=== PATIENT | female | born 1965 | race Caucasian/White ===

== ENCOUNTER 2020-05-02 08:33 | Emergency (ER) | payer OTHER, SELFPAY ==
[2020-05-02 08:35] VITALS: BP 178/82; PULSE 92; RESP 18; TEMP 36.4; O2SAT 98
[2020-05-02 09:10] VITALS: BP 181/96; PULSE 87; RESP 20; O2SAT 95
[2020-05-02] MEDS: diphenhydrAMINE HCl INJ 50 MG/ML VIAL 25 MG IV PUSH (09:38)
[2020-05-02] MEDS: PROCHLORPERAZINE EDISYLATE 10 MG/2 ML VIAL 5 MG IV PUSH (09:38)
[2020-05-02] MEDS: fentaNYL CITRATE INJ (*CRX) 100 MCG/2 ML VIAL 25 MCG IV PUSH (09:38)
[2020-05-02 10:00] VITALS: BP 179/95; PULSE 82; RESP 20; O2SAT 95
--- NOTE | 2020-05-02 10:11 | ED.HA ---
HPI - Headache General Chief Complaint: Headache Stated Complaint: Headache Time Seen by Provider: 05/02/20 08:51 Source: patient and family Mode of arrival: ambulatory Limitations: no limitations History of Present Illness HPI Narrative: 55-year-old with a history of hypertension, here with complaints of having headache on and off for past few weeks. Patient states that she had an outpatient MRI done at [facility] which showed thickening of blood vessels but no evidence of any strokes or masses. She states that her headache is mostly in the frontal area was unable to sleep all night. She denies any blurred vision, nausea or vomiting. MD elicited complaint: headache Onset (ago): week(s) (4) Onset description: gradually Quality & Timing: aching and constant Exacerbating factors: none Relieving factors: nothing Associated symptoms: none Related Data Home Medications Medication Instructions Recorded Confirmed alprazolam 1 mg PO DAILY 05/02/20 candesartan 16 mg PO DAILY 05/02/20 dicyclomine 20 mg PO TID 05/02/20 hydrochlorothiazide 25 mg PO DAILY 05/02/20 lisinopril 20 mg PO DAILY 05/02/20 lumateperone [Caplyta] 42 mg PO DAILY 05/02/20 sennosides-docusate sodium 8.6 - 50 tab-cap PO HS 05/02/20 [Senexon-S] Allergies Allergy/AdvReac Type Severity Reaction Status Date / Time aspirin Allergy Unknown Anaphylactic Verified 05/02/20 08:38 Shock iodine Allergy Unknown IVPDYE Verified 11/04/08 15:48 Review of Systems Review of Systems: All systems reviewed & are unremarkable except as noted in HPI and below Constitutional: Constitutional: Reports no additional constitutional complaints Eyes: Eyes: Reports no additional eye complaints ENT: Reports system reviewed and no additional complaints, except as documented Cardiovascular: Cardiovascular: Reports as per HPI Respiratory: Respiratory: Reports as per HPI Gastrointestinal: Gastrointestinal: Reports no additional gastrointestinal complaints Integumentary/Breasts: Skin/Breast: Reports system reviewed and no additional complaints, except as docu Neurologic: Reports as per HPI Psychiatric: Psychiatric: Reports no additional psychiatric complaints Exam Narrative: Exam Narrative: GENERAL: Well-appearing, well-nourished, and in no acute distress. HEAD: Normocephalic, atraumatic. EYES: PERRLA and EOMI. ENT: Nares clear, no rhinorrhea or epistaxis. Mucous membranes moist. NECK: Supple. CHEST: Clear to auscultation. No respiratory distress. HEART: Regular rate and rhythm. No murmur heard. Normal peripheral pulses.. EXTREMITIES: Normal range of motion. No edema. SKIN: Warm, dry, no rash. NEURO: No focal deficits. Alert and oriented x3. PSYCH: Normal mood and affect. Course Course Emergency Course: Patient states that she is feeling much better after IV Benadryl and Compazine advised her to continue her home medication, follow-up with her primary doctor or neurologist. Vital Signs Vital signs: Vital Signs Temperature 36.4 C 05/02/20 08:35 Pulse Rate 92 05/02/20 08:35 Respiratory Rate 18 05/02/20 08:35 Blood Pressure 178/82 H 05/02/20 08:35 Pulse Oximetry 98 05/02/20 08:35 Temperature 36.4 C 05/02/20 08:35 Pulse Rate 82 05/02/20 10:00 Respiratory Rate 20 05/02/20 10:00 Blood Pressure 179/95 H 05/02/20 10:00 Pulse Oximetry 95 05/02/20 10:00 Discharge Plan Discharge Clinical Impression: Headache Patient Disposition: Home, Self-Care Condition: Stable Instructions: Antibiotic Form Prescriptions: No Action alprazolam 1 mg Tablet 1 mg PO DAILY RF: 0 lisinopril 20 mg tablet 20 mg PO DAILY RF: 0 sennosides-docusate sodium [Senexon-S] 8.6-50 mg tablet 8.6 - 50 tab-cap PO HS RF: 0 dicyclomine 20 mg tablet 20 mg PO TID RF: 0 candesartan 16 mg tablet 16 mg PO DAILY RF: 0 hydrochlorothiazide 25 mg tablet 25 mg PO DAILY RF: 0 Caplyta 42 mg Capsule 42 mg PO
[2020-05-02 10:29] VITALS: BP 179/95; PULSE 80; RESP 20; O2SAT 95
== END 2020-05-02 10:30 | disposition home or self-care (01) ==
PROVIDERS: Emergency Provider Family Medicine; PCP Internal Medicine
DX: R51.9 Headache, unspecified (principal); I10 Essential (primary) hypertension
CPT/HCPCS: 96374; 96375; 99284; J0780; J1200; J3010

== ENCOUNTER 2020-10-28 12:30 | Outpatient (CLI) | payer OTHER, SELFPAY ==
--- NOTE | ~2020-10-28 | US_ITS ---
EXAMINATION: US carotid duplex BI DATE: 10/28/2020 13:08 INDICATION: Stroke TECHNIQUE: Grayscale, color Doppler, and pulsed Doppler images of the cervical carotid arteries were obtained. The degree of vessel stenosis is placed in one of the following categories: normal, <50%, 5 0-69%, >=70% but less than near-occlusion, near-occlusion, or total occlusion. Note that percent sten osis relative to normal distal artery lumen diameter is indirectly measured from velocity measurement s as described by Gurinder, et al. Radiology 2003; 229:[id number]. COMPARISON: None. FINDINGS: RIGHT: The right common carotid artery (CCA) peak systolic velocity (PSV) is 79 cm/s. The right internal car otid artery (ICA) PSV is 70 cm/s. The right ICA end-diastolic velocity (EDV) is 20 cm/s. The right IC A/CCA PSV ratio is 0.9. Grayscale and color Doppler images yield an estimate of <50% diameter reducti on from plaque in the ICA. The external carotid artery (ECA) PSV is 126 cm/s. There is antegrade flow in the right vertebral artery. LEFT: The left CCA PSV is 83 cm/s. The left ICA PSV is 94 cm/s. The left ICA EDV is 32 cm/s. The left ICA/C CA PSV ratio is 1.1. Grayscale and color Doppler images yield an estimate of <50% diameter reduction from plaque in the ICA. The ECA PSV is 79 cm/s. There is antegrade flow in the left vertebral artery. IMPRESSION: 1. <50% stenosis from negligible plaque in the right internal carotid artery. 2. <50% stenosis from negligible plaque in the left internal carotid artery. Reviewed, dictated and finalized at location B.
== END 2020-10-28 12:31 | disposition home or self-care (01) ==
PROVIDERS: PCP Internal Medicine; Visit Provider Internal Medicine
DX: I65.23 Occlusion and stenosis of bilateral carotid arteries (principal)
CPT/HCPCS: 93880

== ENCOUNTER 2022-01-27 12:23 | Outpatient (CLI) | payer OTHER, SELFPAY ==
--- NOTE | ~2022-01-27 | XR_ITS ---
EXAMINATION: XR barium swallow DATE: 01/27/2022 12:56 INDICATION: Throat pain. TECHNIQUE: The patient drank thick barium, gas-producing crystals, and thin barium. Fluoroscopic spot radiographs of the hypopharynx and esophagus were obtained. Fluoroscopy exposure time was 2.3 minut es. A total of 1603 fluoroscopic images were obtained. COMPARISON: None. FINDINGS: The pharynx is symmetric and without evidence of mass lesion or mucosal irregularity. There is laryngeal penetration upon review of images. Procedure there is also trace aspiration which was s ilent without eliciting a cough reflex. Postoperative changes of C3-C4 anterior spinal fusion with fu ekaterina device along the right anterior margin of the disc space with a couple surgical clips to the rig ht of the larynx. The esophagus is normal without mass or stricture. Esophageal motility is within no rmal limits for age. There is no hiatal hernia. There was no gastroesophageal reflux with provocative maneuvers. Heterogeneous pattern of contrast within the stomach likely related to residual fluid and debris within the stomach. IMPRESSION: 1. Laryngeal penetration with trace silent aspiration. Consider modified swallow study performed with the department of speech pathology for further evaluation. 2. Otherwise unremarkable esophagram. Reviewed, dictated and finalized at location A. IMPRESSION: 1. Laryngeal penetration with trace silent aspiration. Consider modified swallo w study performed with the department of speech pathology for further evaluatio n. 2. Otherwise unremarkable esophagram.
== END 2022-01-27 12:24 | disposition home or self-care (01) ==
PROVIDERS: PCP Internal Medicine; Visit Provider Otolaryngology
DX: R07.0 Pain in throat (principal)
CPT/HCPCS: 74220

== ENCOUNTER 2022-02-10 14:42 | Outpatient (CLI) | payer OTHER, SELFPAY ==
--- NOTE | ~2022-02-10 | CT_ITS ---
EXAMINATION:CT lung screening DATE: 02/10/2022 15:13 INDICATION: Personal history of nicotine dependence. Current smoker with 41 pack year history. TECHNIQUE: Computed tomography (CT) of the chest was performed without intravenous contrast. Automate d exposure control and iterative reconstruction technique were employed. The dose-length product (DLP ) was 71.85 mGy-cm. COMPARISON: Chest CT 04/26/2018 FINDINGS: Calcified right lung nodules and calcified right hilar lymph nodes are consistent with old granulomas disc disease. There is a broncholith in anterobasal segment right lower lobe. There are tr ee-in-bud opacities and bronchiectasis in anterobasal segment right lower lobe. No pleural effusion. The heart size is normal. No pericardial effusion. Calcifications in the spleen are consistent with o ld granulomatous disease. There is moderate thoracic spondylosis. IMPRESSION: 1. Lung-RADS category 2S: Benign appearance or behavior. Continue annual screening with noncontrast l ow-dose chest CT in 12 months. 2. Broncholith in anterobasal segment right lower lobe with chronic postobstructive pneumonia. Reviewed, dictated and finalized at location A. IMPRESSION: 1. Lung-RADS category 2S: Benign appearance or behavior. Continue annual screen ing with noncontrast low-dose chest CT in 12 months. 2. Broncholith in anterobasal segment right lower lobe with chronic postobstruc tive pneumonia.
== END 2022-02-10 14:43 | disposition home or self-care (01) ==
PROVIDERS: PCP Internal Medicine; Visit Provider Internal Medicine
DX: Z12.2 Encounter for screening for malignant neoplasm of respiratory organs (principal); Z87.891 Personal history of nicotine dependence
CPT/HCPCS: 71271

== ENCOUNTER 2022-05-29 01:10 | Day surgery (SDC) | payer OTHER, SELFPAY ==
[2022-05-10 14:41] VITALS: BMI 30.2
--- NOTE | 2022-05-22 09:02 | PC.NURSE ---
Spoke with patient on 05/19/22, states she is running fever of 101.8 past 2 days, she finished 2nd round of antibiotics on 05/15/2022 and was seen in office by Dr. Lee on 05/17/2022 did not want to start another round of antibiotics at this time. Pt states she is congested and coughing up phlegm. Encouraged pt to call Dr. Lee or go to ER to be seen to r/o PN prior to coming for EGD. Talked with pt this am 05/22/2022 stated her home health care case manager called Dr. Coleman office and he ordered a chest x-ray. She said she could not get this done over the weekend so home health care case manager is taking her today. She states she does feel better and has not been running a fever yesterday or today. I will call Dr. Coleman office to ask them to follow up on chest xray today as her procedure is sched. tomorrow.
[2022-05-29 07:54] VITALS: BP 177/96; PULSE 87; RESP 16; TEMP 36.4; O2SAT 98; BMI 30.4
[2022-05-29] MEDS: LACTATED RINGERS 1,000 ML 150 ML IV CONT (08:24)
--- NOTE | 2022-05-29 08:31 | PM.HPGS ---
History of Present Illness History of Present Illness Consent: Risks, benefits, and alternatives have been discussed and questions answered. Patient agrees to proceed with procedure. Chief complaint: epigastric pain Narrative: Melinda Persaud is a 57 year old female with lprd and epigastric pain, prilose did not work Review of Systems Constitutional: Constitutional: Denies headache(s) and Denies weakness Eyes: Eyes: Denies blurry vision ENT: Reports Normal hearing present, Denies headache(s) and Denies neck pain Cardiovascular: Cardiovascular: Denies chest pain and Denies dyspnea Respiratory: Respiratory: Denies dyspnea Gastrointestinal: Gastrointestinal: Reports no additional gastrointestinal complaints Genitourinary: Genitourinary: Denies dysuria Musculoskeletal: Musculoskeletal: Denies neck pain Integumentary/Breasts: Skin/Breast: Denies dry skin Neurologic: Reports Normal hearing present, Denies headache(s) and Denies weakness Psychiatric: Psychiatric: Denies anxiety Endocrine: Endocrine: Denies change in body appearance Hematologic/Lymphatic: Hematologic/Lymphatic: Denies easy bleeding Allergic/Immunologic: Allergic/Immunologic: Denies urticaria PMFSH Past Medical History Medical History (Updated 04/13/22 @ 13:51 by Cesar Williamson MD) Allergies Colon cancer screening Epigastric pain History of COPD Hx of chronic arthritis Hypertension Kidney disease Migraine Seizures Tobacco abuse Family History Family History Father Carcinoma of colon Lung cancer Mother Heart disease Hypertension Depression Sibling Heart disease Hypertension Social History Social History Smoking packs per day: 0.5 Smoking cigarettes per day: 10.0 Years smoked: 40 Smoking pack-years: 20.00 Smoking status: Current every day smoker Tobacco type: cigarettes Second hand tobacco smoke exposure: Yes Alcohol intake: never Substance use: current Substance use type: does not use Living arrangements: alone Spiritual care concerns: No Meds Home Medications and Allergies Home Medications Medication Instructions Recorded Confirmed Type hydrochlorothiazide 12.5 mg tablet 12.5 mg PO DAILY 01/05/22 05/29/22 History ketorolac 10 mg tablet 10 mg PO Q6H PRN Pain 01/05/22 05/29/22 History methocarbamol 500 mg tablet 500 mg PO BID 01/05/22 05/29/22 History pregabalin 150 mg capsule (Lyrica) 150 mg PO BID 01/05/22 05/29/22 History acetaminophen 500 mg capsule 1,000 mg PO Q6H PRN Pain 04/13/22 05/29/22 History albuterol sulfate 90 mcg/actuation 1 - 2 inh inhalation Q4H PRN 04/13/22 05/29/22 History aerosol inhaler (Ventolin HFA) Shortness Of Breath dicyclomine 20 mg tablet 20 mg PO TID 04/13/22 05/29/22 History diphenhydramine HCl 25 mg tablet 25 mg PO TID 04/13/22 05/29/22 History (Allergy (diphenhydramine)) montelukast 10 mg tablet 10 mg PO DAILY 04/13/22 05/29/22 History rosuvastatin 5 mg tablet 5 mg PO DAILY 04/13/22 05/29/22 History quetiapine 100 mg tablet 100 mg PO HS 05/10/22 05/29/22 History quetiapine 25 mg tablet 25 mg PO QAM 05/10/22 05/29/22 History quetiapine 50 mg tablet 50 mg PO HS 05/10/22 05/29/22 History topiramate 25 mg tablet 50 mg PO HS 05/10/22 05/29/22 History Allergies Allergy/AdvReac Type Severity Reaction Status Date / Time meloxicam Allergy Severe Anaphylactic Verified 05/29/22 07:52 Shock shellfish derived Allergy Severe Anaphylactic Verified 05/29/22 07:52 Shock venlafaxine [From Effexor] Allergy Mild Rash Verified 05/29/22 07:52 aspirin Allergy Unknown Anaphylactic Verified 05/29/22 07:52 Shock iodine Allergy Unknown IVPDYE Verified 05/29/22 07:52 Vital Signs Vital Signs - 24 hr 05/29/22 07:54 Temperature 97.6 F Pulse Rate 87 Respiratory Rate 16 Blood Pressure 177/96 H Pulse Oximetry 98 Oxygen Deliv
--- NOTE | 2022-05-29 08:35 | WPDANESEPP ---
Anes - Eval Pre Procedure Procedure: Operation Date: 05/29/22 09:00 Proposed Procedures p Esophagogastroduodenoscopy EGD - Cesra Williamson MD Date/Time: 05/29/22 08:35 Surgeon: Sky Preop Diagnosis: Epigastric Pain Pre Op Diagnosis: epigastric pain Patient Data Age: 57 Gender: F Height: 1.63 m Weight: 80.4 kg Last Vital Signs Temp 36.4 C 05/29/22 07:54 Pulse 87 05/29/22 07:54 Resp 16 05/29/22 07:54 BP 177/96 H 05/29/22 07:54 Pulse Ox 98 05/29/22 07:54 O2 Del Method Room Air 05/29/22 07:54 Allergies Allergy/AdvReac Type Severity Reaction Status Date / Time meloxicam Allergy Severe Anaphylactic Verified 05/29/22 07:52 Shock shellfish derived Allergy Severe Anaphylactic Verified 05/29/22 07:52 Shock venlafaxine [From Effexor] Allergy Mild Rash Verified 05/29/22 07:52 aspirin Allergy Unknown Anaphylactic Verified 05/29/22 07:52 Shock iodine Allergy Unknown IVPDYE Verified 05/29/22 07:52 Home Medications Medication Instructions Recorded Confirmed Type hydrochlorothiazide 12.5 mg tablet 12.5 mg PO DAILY 01/05/22 05/29/22 History ketorolac 10 mg tablet 10 mg PO Q6H PRN Pain 01/05/22 05/29/22 History methocarbamol 500 mg tablet 500 mg PO BID 01/05/22 05/29/22 History pregabalin 150 mg capsule (Lyrica) 150 mg PO BID 01/05/22 05/29/22 History acetaminophen 500 mg capsule 1,000 mg PO Q6H PRN Pain 04/13/22 05/29/22 History albuterol sulfate 90 mcg/actuation 1 - 2 inh inhalation Q4H PRN 04/13/22 05/29/22 History aerosol inhaler (Ventolin HFA) Shortness Of Breath dicyclomine 20 mg tablet 20 mg PO TID 04/13/22 05/29/22 History diphenhydramine HCl 25 mg tablet 25 mg PO TID 04/13/22 05/29/22 History (Allergy (diphenhydramine)) montelukast 10 mg tablet 10 mg PO DAILY 04/13/22 05/29/22 History rosuvastatin 5 mg tablet 5 mg PO DAILY 04/13/22 05/29/22 History quetiapine 100 mg tablet 100 mg PO HS 05/10/22 05/29/22 History quetiapine 25 mg tablet 25 mg PO QAM 05/10/22 05/29/22 History quetiapine 50 mg tablet 50 mg PO HS 05/10/22 05/29/22 History topiramate 25 mg tablet 50 mg PO HS 05/10/22 05/29/22 History : patient denies Patient hx anesthesia problems: none Family hx anesthesia problems: none Results Review: All pre-operative results and documents have been reviewed as part of the pre-operative evaluation. [facility] Past Medical History Medical History Allergies Colon cancer screening Epigastric pain History of COPD Hx of chronic arthritis Hypertension Kidney disease Migraine Seizures Tobacco abuse Family History Family History Father Carcinoma of colon Lung cancer Mother Heart disease Hypertension Depression Sibling Heart disease Hypertension Social History Social History (Updated 05/29/22 @ 08:36 by Dayna Cohen CRNA) Smoking packs per day: 0.5 Smoking cigarettes per day: 10.0 Years smoked: 40 Smoking pack-years: 20.00 Smoking status: Current every day smoker Tobacco type: cigarettes Second hand tobacco smoke exposure: Yes Alcohol intake: never Substance use type: does not use Living arrangements: alone Spiritual care concerns: No Exam Day of Procedure 05/29/22 08:35 Patient weight: obese Heart: regular rate and rhythm Lungs: clear to auscultation Airway: Mallampati scale class II Neurological: alert and oriented
[2022-05-29 08:49] VITALS: BP 153/100; PULSE 87; RESP 19; TEMP 36.4; O2SAT 98
[2022-05-29 08:59] VITALS: BP 164/104; PULSE 87; RESP 21; TEMP 36.4; O2SAT 100
[2022-05-29 09:07] VITALS: BP 170/104; PULSE 94; RESP 16; TEMP 36.4; O2SAT 100
== END 2022-05-29 09:13 | disposition home or self-care (01) ==
PROVIDERS: PCP Internal Medicine; Visit Provider Internal Medicine Gastroenterology
PROC: 0DJ08ZZ Inspection of Upper Intestinal Tract, Via Natural or Artificial Opening Endoscopic (ICD-10-PCS; CPT 43235; principal; 2022-05-29 09:00)
DX: K21.00 Gastro-esophageal reflux disease with esophagitis, without bleeding (principal); K29.70 Gastritis, unspecified, without bleeding; I10 Essential (primary) hypertension; J44.9 Chronic obstructive pulmonary disease, unspecified; G40.909 Epilepsy, unspecified, not intractable, without status epilepticus; Z79.51 Long term (current) use of inhaled steroids; F17.210 Nicotine dependence, cigarettes, uncomplicated; E66.9 Obesity, unspecified; Z68.30 Body mass index [BMI] 30.0-30.9, adult
CPT/HCPCS: 43239; 87081; 88305; J2704; J7120

== ENCOUNTER 2022-06-30 08:42 | Outpatient (CLI) | payer OTHER, SELFPAY ==
--- NOTE | 2022-06-30 | ECHO_ITS ---
Patient Info Name: Melinda Persaud Age: 57 years : 1965 Gender: Female Ht: 64 in Wt: 180 lbs BSA: 1.95 m2 HR: 95 bpm BP: 120 / 106 mmHg Technical Quality: Good Exam Date: 06/30/2022 9:13 AM Exam Location: [facility] Patient Status: Outpatient Admit Date: 06/30/2022 Staff Ordering Physician: Mj Lee MD Hydrostatic Tubing Tester: Supa Martin, BEATRIZ, RT Attending Provider: Mj Lee MD Referring Physician: Rosa LYONS; Exam Type: CA echo doppler color flow Study Info Indications R60.0 - Localized edema R06.02 - Shortness of breath Complete two-dimensional, color flow and Doppler transthoracic echocardiogram is performed. Strain analysis performed. Summary 1. Complete two-dimensional, color flow and Doppler transthoracic echocardiogram is performed. 2. Left ventricular chamber dimension is normal. 3. Left ventricular systolic function is normal, estimated at 60-65%. 4. There is mildly increased left ventricular wall thickness. 5. The left ventricular diastolic function is grade I diastolic dysfunction. 6. E/e' 7 is not elevated. 7. Global longitudinal strain is abnormal at -10.9%. 8. There is mild aortic valve sclerosis. 9. There is trace pulmonic regurgitation. Left Ventricle E/e' 7 is not elevated. Global longitudinal strain is abnormal at -10.9%. Left ventricular chamber dimension is normal. Left ventricular systolic function is normal, estimated at 60-65%. There is mildly increased left ventricular wall thickness. The left ventricular diastolic function is grade I diastolic dysfunction. Right Ventricle Right ventricular systolic function is normal and with normal TAPSE 1.7 cm. Right ventricular chamber dimension is normal. Left Atria Left atrial chamber dimension is normal. Right Atria Right atrial chamber dimension is normal. Aortic Valve The aortic valve is trileaflet. There is mild aortic valve sclerosis. There is no aortic valve stenosis. There is no aortic valve regurgitation. Pulmonic Valve There is trace pulmonic regurgitation. Mitral Valve There is no mitral valve stenosis. There is no mitral valve regurgitation. Tricuspid Valve There is no tricuspid valve regurgitation. Pericardium/Pleural There is no pericardial effusion. Inferior Vena Cava Normal inferior vena cava with >50% collapse upon inspiration consistent with normal right atrial pressure, 5 mmHg. Aorta The aortic root size at the sinus of Valsalva is normal. Left Ventricular Outflow Tract Name Value Normal LVOT 2D LVOT Diameter 2.0 cm LVOT Doppler LVOT Peak Gradient 3 mmHg LVOT Mean Gradient 2 mmHg LVOT VTI 13 cm LVOT VTI/AV VTI Ratio 0.6 LVOT Stroke Volume 39 ml LVOT CO 4.0 l/min LVOT CI 2.0 l/min/m2 Mitral Valve Name Value Normal ----
== END 2022-06-30 08:43 | disposition home or self-care (01) ==
LOC: ANHCARD 08:42
PROVIDERS: PCP Internal Medicine; Visit Provider Internal Medicine
DX: R06.09 Other forms of dyspnea (principal)
CPT/HCPCS: 93306

== ENCOUNTER 2022-07-05 12:40 | Outpatient (CLI) | payer OTHER, SELFPAY ==
--- NOTE | 2022-07-05 16:28 | WPDPFTINT ---
PFT Procedure Performed PFT Procedure Performed Spirometry with Pre/Post Bronchodilator Plethysmography (Lung Vol) Diffusing Cap (DLCO) Flow Vol Loop PFT Interpretation This is a pulmonary function test with pre and post-bronchodilator spirometry, plethysmography and diffusing capacity. The test was performed and results interpreted in accordance with the 2019 and 2005 ATS/ERS Task Force guidelines respectively using the Global Lung Function Initiative-2012 reference equations. Patient demonstrated good effort and cooperation. Reproducibility criteria were met. The quality of the pre bronchodilator spirometry maneuver was Grade A and post bronchodilator spirometry maneuver was Grade A. Findings: Spirometry: The contour the inspiratory and expiratory flow tracing are normal. The pre bronchodilator FVC is 2.20 L, 68% predicted. The pre bronchodilator FEV1 is 1.90 L, 75% predicted. The pre bronchodilator FEV1: FVC ratio is 86%. Post bronchodilator FVC is 2.22 L, representing 1% increase. The post bronchodilator FEV1 is 1.97 L, representing a 4% increase. The post bronchodilator FEV1: FVC ratio was 88%. Plethysmography: Total lung capacity is 3.59 L, 71% predicted. The functional residual capacity is 1.65 L, 57% predicted. The residual volume is 1.40 L, 71% predicted. Diffusing capacity: The diffusing capacity unadjusted for hemoglobin and carboxyhemoglobin is 15.8, 73% predicted. The diffusing capacity adjusted for alveolar volume is 5.26, 118% predicted. Impression: There is a mild restrictive ventilatory a normal FEV1. The spirometry is normal without evidence of an obstructive abnormality. There is no significant improvement after inhaling a single dose of albuterol. The diffusing capacity is normal. There are no prior studies for comparison
== END 2022-07-05 12:41 | disposition home or self-care (01) ==
LOC: ANHPFT 12:42
PROVIDERS: PCP Internal Medicine; Visit Provider Internal Medicine Pulmonary Disease
DX: J44.9 Chronic obstructive pulmonary disease, unspecified (principal); R94.2 Abnormal results of pulmonary function studies
CPT/HCPCS: 94060; 94726; 94729

== ENCOUNTER 2022-09-11 09:23 | Emergency (ER) | payer OTHER, SELFPAY ==
[2022-09-11 09:30] VITALS: BP 138/87; PULSE 92; RESP 16; TEMP 36.5; O2SAT 99
== END 2022-09-11 10:37 | disposition left against medical advice (07) ==
PROVIDERS: PCP Internal Medicine
DX: M54.2 Cervicalgia (principal)
CPT/HCPCS: 99199

== ENCOUNTER 2022-11-02 09:22 | Outpatient (CLI) | payer OTHER, SELFPAY ==
--- NOTE | ~2022-11-02 | US_ITS ---
US abdomen complete EXAMINATION: US Abdomen Complete INDICATION: Left upper quadrant pain PROCEDURE: Realtime High Resolution abdomen ultrasound. COMPARISON: No prior studies for comparison FINDINGS: Gallbladder is surgically absent. Common bile duct measures 2.3 mm. Liver echotexture is increased, consistent with fatty infiltration.. There is an echogenic focus of t he liver, likely calcification. Pancreas within normal limits. Pancreatic tail is obscured by bowel gas. There are calcified granulomas of the spleen. Spleen is normal in size.. Renal echotexture is wi thin normal limits bilaterally without hydronephrosis, contour deforming mass or renal stone. Right k idney measures 10.2 cm. Left kidney measures 9.8 cm. Visualized aspects of the aorta and IVC are within normal limits. Portal vein is patent. IMPRESSION: 1: Hepatic steatosis. Reviewed, dictated and finalized at location L. IMPRESSION: 1: Hepatic steatosis.
== END 2022-11-02 09:23 | disposition home or self-care (01) ==
LOC: ANHIMG 09:25
PROVIDERS: PCP Internal Medicine; Visit Provider Internal Medicine Gastroenterology
DX: K76.0 Fatty (change of) liver, not elsewhere classified (principal)
CPT/HCPCS: 76700

== ENCOUNTER 2023-01-02 01:27 | Day surgery (SDC) | payer OTHER, SELFPAY ==
[2022-12-26 13:26] VITALS: BMI 30.6
[2023-01-02 08:00] VITALS: BP 128/70; PULSE 81; RESP 16; TEMP 36.2; O2SAT 99; BMI 29.2
--- NOTE | 2023-01-02 08:09 | WPDANESEPPF ---
Anes - Initial Pre Proc Eval Procedure: Operation Date: 01/02/23 09:15 Proposed Procedures p Esophagogastroduodenoscopy - Cesar Williamson MD Date/Time: 01/02/23 08:09 Surgeon: Cesar Williamson MD Pre Op Diagnosis: gastric ulcer Patient Data Age: 57 Gender: F Height: 1.63 m Weight: 77.4 kg Last Vital Signs Temp 36.2 C L 01/02/23 08:00 Pulse 81 01/02/23 08:00 Resp 16 01/02/23 08:00 BP 128/70 01/02/23 08:00 Pulse Ox 99 01/02/23 08:00 O2 Del Method Room Air 01/02/23 08:00 Allergies Allergy/AdvReac Type Severity Reaction Status Date / Time meloxicam Allergy Severe Anaphylactic Verified 01/02/23 07:59 Shock shellfish derived Allergy Severe Anaphylactic Verified 01/02/23 07:59 Shock venlafaxine [From Effexor] Allergy Mild Rash Verified 01/02/23 07:59 aspirin Allergy Unknown Anaphylactic Verified 01/02/23 07:59 Shock iodine Allergy Unknown IVPDYE Verified 01/02/23 07:59 NSAIDS (Non-Steroidal Allergy Rash Verified 01/02/23 07:59 Anti-Inflamma Home Medications Medication Instructions Recorded Confirmed Type hydrochlorothiazide 12.5 mg tablet 12.5 mg PO DAILY 01/05/22 01/02/23 History methocarbamol 500 mg tablet 750 mg PO TID 01/05/22 01/02/23 History pregabalin 150 mg capsule (Lyrica) 150 mg PO BID 01/05/22 01/02/23 History albuterol sulfate 90 mcg/actuation 1 - 2 inh inhalation Q4H PRN 04/13/22 01/02/23 History aerosol inhaler (Ventolin HFA) Shortness Of Breath dicyclomine 20 mg tablet 20 mg PO TID 04/13/22 01/02/23 History diphenhydramine HCl 25 mg tablet 25 mg PO QID 04/13/22 01/02/23 History (Allergy (diphenhydramine)) montelukast 10 mg tablet 10 mg PO DAILY 04/13/22 01/02/23 History candesartan 16 mg tablet 32 mg PO DAILY 10/19/22 01/02/23 History doxepin 10 mg capsule 25 mg PO DAILY 10/19/22 01/02/23 History ketorolac 10 mg tablet 10 mg PO Q6H PRN Pain 10/19/22 01/02/23 History atorvastatin 40 mg tablet 40 mg PO DAILY 12/26/22 01/02/23 History melatonin 5 mg/15 mL oral liquid 20 mg PO HS 12/26/22 01/02/23 History quetiapine 200 mg tablet 200 mg PO HS 12/26/22 01/02/23 History topiramate 50 mg tablet 50 mg PO DAILY 12/26/22 01/02/23 History Patient hx anesthesia problems: none Family hx anesthesia problems: none Results Review: All pre-operative results and documents have been reviewed as part of the pre-operative evaluation. [facility] Past Medical History Medical History (Updated 10/19/22 @ 11:30 by Cesar Williamson MD) Acute LUQ pain Allergies Colon cancer screening Epigastric pain Erosive gastritis History of COPD Hx of chronic arthritis Hypertension Kidney disease Migraine Seizures Tobacco abuse Family History Family History Father Carcinoma of colon Lung cancer Mother Heart disease Hypertension Depression Sibling Heart disease Hypertension Social History Social History Smoking packs per day: 0.5 Smoking cigarettes per day: 10.0 Years smoked: 40 Smoking pack-years: 20.00 Smoking status: Current every day smoker Tobacco type: cigarettes Second hand tobacco smoke exposure: Yes Alcohol intake: never Substance use type: does not use Living arrangements: alone Spiritual care concerns: No Anes - Eval Final PreProcedure Day of Procedure 01/02/23 08:09 Patient weight: overweight Heart: regular rate and rhythm Lungs: clear to auscultation and normal air movement Airway: Mallampati scale class II Neurological: alert and oriented Last oral intake: >/= 8 hours ASA classification: III Emergent: no Anesthetic plan: proceed Anesthesia type and monitoring: general GIVS Results Review: All pre-operative results and documents have been reviewed as part of the pre-operative evaluation. Informed Consent: The patient's anesthetic plan and its attendant ris
[2023-01-02] MEDS: LACTATED RINGERS 1,000 ML 150 ML IV CONT (08:31)
--- NOTE | 2023-01-02 08:52 | PM.HPGS ---
History of Present Illness History of Present Illness Consent: Risks, benefits, and alternatives have been discussed and questions answered. Patient agrees to proceed with procedure. Chief complaint: gastric ulcer Narrative: Melinda Persaud is a 57 year old female with ulcerative gastritis few months ago, she was doing better with protonix but insurance not longer covers Review of Systems Constitutional: Constitutional: Denies headache(s) and Denies weakness Eyes: Eyes: Denies blurry vision ENT: Reports Normal hearing present, Denies headache(s) and Denies neck pain Cardiovascular: Cardiovascular: Denies chest pain and Denies dyspnea Respiratory: Respiratory: Denies dyspnea Gastrointestinal: Gastrointestinal: Reports no additional gastrointestinal complaints Genitourinary: Genitourinary: Denies dysuria Musculoskeletal: Musculoskeletal: Denies neck pain Integumentary/Breasts: Skin/Breast: Denies dry skin Neurologic: Reports Normal hearing present, Denies headache(s) and Denies weakness Psychiatric: Psychiatric: Denies anxiety Endocrine: Endocrine: Denies change in body appearance Hematologic/Lymphatic: Hematologic/Lymphatic: Denies easy bleeding Allergic/Immunologic: Allergic/Immunologic: Denies urticaria [facility] Past Medical History Medical History (Updated 10/19/22 @ 11:30 by Cesar Williamson MD) Acute LUQ pain Allergies Colon cancer screening Epigastric pain Erosive gastritis History of COPD Hx of chronic arthritis Hypertension Kidney disease Migraine Seizures Tobacco abuse Family History Family History Father Carcinoma of colon Lung cancer Mother Heart disease Hypertension Depression Sibling Heart disease Hypertension Social History Social History Smoking packs per day: 0.5 Smoking cigarettes per day: 10.0 Years smoked: 40 Smoking pack-years: 20.00 Smoking status: Current every day smoker Tobacco type: cigarettes Second hand tobacco smoke exposure: Yes Alcohol intake: never Substance use type: does not use Living arrangements: alone Spiritual care concerns: No Meds Home Medications and Allergies Home Medications Medication Instructions Recorded Confirmed Type hydrochlorothiazide 12.5 mg tablet 12.5 mg PO DAILY 01/05/22 01/02/23 History methocarbamol 500 mg tablet 750 mg PO TID 01/05/22 01/02/23 History pregabalin 150 mg capsule (Lyrica) 150 mg PO BID 01/05/22 01/02/23 History albuterol sulfate 90 mcg/actuation 1 - 2 inh inhalation Q4H PRN 04/13/22 01/02/23 History aerosol inhaler (Ventolin HFA) Shortness Of Breath dicyclomine 20 mg tablet 20 mg PO TID 04/13/22 01/02/23 History diphenhydramine HCl 25 mg tablet 25 mg PO QID 04/13/22 01/02/23 History (Allergy (diphenhydramine)) montelukast 10 mg tablet 10 mg PO DAILY 04/13/22 01/02/23 History candesartan 16 mg tablet 32 mg PO DAILY 10/19/22 01/02/23 History doxepin 10 mg capsule 25 mg PO DAILY 10/19/22 01/02/23 History ketorolac 10 mg tablet 10 mg PO Q6H PRN Pain 10/19/22 01/02/23 History atorvastatin 40 mg tablet 40 mg PO DAILY 12/26/22 01/02/23 History melatonin 5 mg/15 mL oral liquid 20 mg PO HS 12/26/22 01/02/23 History quetiapine 200 mg tablet 200 mg PO HS 12/26/22 01/02/23 History topiramate 50 mg tablet 50 mg PO DAILY 12/26/22 01/02/23 History Allergies Allergy/AdvReac Type Severity Reaction Status Date / Time meloxicam Allergy Severe Anaphylactic Verified 01/02/23 07:59 Shock shellfish derived Allergy Severe Anaphylactic Verified 01/02/23 07:59 Shock venlafaxine [From Effexor] Allergy Mild Rash Verified 01/02/23 07:59 aspirin Allergy Unknown Anaphylactic Verified 01/02/23 07:59 Shock iodine Allergy Unknown IVPDYE Verified 01/02/23 07:59 NSAIDS (Non-Steroidal Allergy Rash Verified 01/02/23 07:59 Anti-Inflamma Vital Signs Vital Si
[2023-01-02 09:13] VITALS: BP 107/53; PULSE 67; RESP 19; O2SAT 100
[2023-01-02 09:23] VITALS: BP 99/65; PULSE 72; RESP 24; O2SAT 99
[2023-01-02 09:33] VITALS: BP 118/65; PULSE 78; RESP 17; O2SAT 100
== END 2023-01-02 09:37 | disposition home or self-care (01) ==
PROVIDERS: PCP Internal Medicine; Visit Provider Internal Medicine Gastroenterology
PROC: 0DJ08ZZ Inspection of Upper Intestinal Tract, Via Natural or Artificial Opening Endoscopic (ICD-10-PCS; CPT 43235; principal; 2023-01-02 09:15)
DX: K21.00 Gastro-esophageal reflux disease with esophagitis, without bleeding (principal); K29.70 Gastritis, unspecified, without bleeding; J44.9 Chronic obstructive pulmonary disease, unspecified; G40.909 Epilepsy, unspecified, not intractable, without status epilepticus; F17.210 Nicotine dependence, cigarettes, uncomplicated; Z79.51 Long term (current) use of inhaled steroids
CPT/HCPCS: 43239; 88305; J2001; J2704; J7120

== ENCOUNTER 2023-07-11 12:49 | Outpatient (CLI) | payer OTHER, SELFPAY ==
--- NOTE | 2023-07-11 12:57 | ECG_ITS ---
Measurements Intervals [place] Rate: 89 P: 34 LA: 203 QRS: 43 QRSD: 97 T: 43 QT: 355 QTc: 432 Interpretive Statements SINUS RHYTHM BASELINE ARTIFACT POOR R-WAVE PROGRESSION BORDERLINE ECG NO PREVIOUS ECG AVAILABLE FOR COMPARISON Electronically Signed On 07-11-2023 16:03:46 REGISTRATION MANAGER by Conrado Driver M.D.
[2023-07-11 13:20] LABS: Hematocrit 34.3 % (37.0-47.0); Hemoglobin 10.7 g/dL (12.0-15.0); Mean Corpuscular HGB Conc 31.2 g/dl (32-36); Mean Corpuscular Hemoglobin 28.5 pg (26-34); Mean Corpuscular Volume 91.2 fl (80-100); Mean Platelet Volume 10.4 fl (7.4-10.4); Platelet Count Result 359 k/mm3 (150-375); Red Blood Count 3.76 M/mm3 (4.2-5.4); Red Cell Distribution Width 14.6 % (11.5-14.5); White Blood Count 9.6 K/mm3 (4.5-10.0)
[2023-07-11 13:31] LABS: INR 0.9; Prothrombin Time 12.8 Seconds (11.1-14.7)
[2023-07-11 13:31] LABS: Appearance Urine Clear (Clear); Bacteria Urine 1+ /hpf; Bilirubin Urine Negative (Negative); Blood Urine Negative (Negative); Color Urine Yellow (Yellow); Glucose Urine UA Negative (Negative); Ketones Urine Negative (Negative); Leukocyte Esterase Ur Trace LEU/UL (Negative); Nitrate Urine Negative (Negative); Non Pathogenic Casts 0-2; Protein Urine Negative (Negative); RBC Urine 0-2 /hpf (0-2); Specific Grav Ur 1.014 (1.001-1.035); Squamous Epithelial Cell Urine Few /hpf (Few); Urobilinogen Urine 0.2 mg/dL (<2.0); pH Urine 5.5 (5.0-9.0)
[2023-07-11 13:32] LABS: Anion Gap 5 mmol/L (8-16); Blood Urea Nitrogen 15 mg/dL (7-17); Calcium 8.9 mg/dL (8.4-10.2); Carbon Dioxide 34 mmol/L (22-30); Chloride 102 mmol/L (98-107); Estimated Glomerular Filt Rate 51; Glucose 114 mg/dL (65-110); Partial Thromboplastin Time 32.1 SECONDS (22.3-36.8); Potassium 3.8 mmol/L (3.4-5.0); Sodium 141 mmol/L (137-145)
[2023-07-11 13:34] LABS: Add Urine Microscopic? YES
== END 2023-07-11 12:50 | disposition home or self-care (01) ==
PROVIDERS: Anesthesiology; PCP Internal Medicine; Visit Provider Neurological Surgery
DX: Z98.1 Arthrodesis status (principal); N28.9 Disorder of kidney and ureter, unspecified; I10 Essential (primary) hypertension; Z01.818 Encounter for other preprocedural examination
CPT/HCPCS: 36415; 80048; 81001; 85027; 85610; 85730; 86850; 86900; 86901; 87086; 87088; 93005

== ENCOUNTER 2023-09-13 12:38 | Outpatient (CLI) | payer OTHER, SELFPAY ==
--- NOTE | ~2023-09-13 | XR_ITS ---
EXAMINATION: XR lumbar spine min 4V DATE: 09/13/2023 13:29 INDICATION: Low back pain TECHNIQUE: Anteroposterior, lateral, and bilateral oblique views of the lumbar spine were obtained. COMPARISON: 09/13/2017 FINDINGS: Bone alignment is normal. There is no fracture. The vertebral body heights are maintained. There is moderate loss of intervertebral disc space height at L2-3. Degenerative osteophytes project from the anterior endplates of multiple vertebral bodies. There is moderate facet joint osteoarthriti s throughout the lumbar spine and severe facet joint osteoarthritis at L4-5 and L5-S1. There are surg ical clips in the right pelvis. The bowel gas pattern is unremarkable. There is mild osteoarthritis o f the hips. IMPRESSION: 1. Moderate lumbar spondylosis without acute findings or significant interval change. Reviewed, dictated and finalized at location L. CARE COORDINATOR IMPRESSION: 1. Moderate lumbar spondylosis without acute findings or significant interval c jose.
--- NOTE | ~2023-09-13 | MR_ITS ---
MRI of the cervical spine Clinical History: Arthralgia Technique: Axial T2-weighted and gradient images, and sagittal T1-weighted, T2-weighted, and STIR tanisha ges were acquired. Findings: There is anterior fusion from C3 to C4. No fracture or subluxation evident. No suspicious b one marrow signal abnormality seen. At C2-C3, there is no disc bulge or herniation. No spinal canal stenosis, cord compression, or neural foraminal narrowing. At C3-C4, there is no disc bulge or herniation. No spinal canal stenosis, cord compression, or left n eural foraminal narrowing. There is mild right neural foraminal narrowing. At C4-C5, there is minimal disc bulge. There is facet arthropathy, especially the left side, with lef t neural foraminal narrowing. Possible minimal right neural foraminal narrowing. No central canal cody nosis or cord compression. At C5-6, there is disc osteophyte compresses with mild canal stenosis and minimal flattening the vent ral cord. There is probable bilateral neural foraminal narrowing, right worse than left. At C6-C7, there is minimal disc bulge. No spinal canal stenosis, cord compression, or neural foramina l narrowing. No abnormal signal seen in the spinal cord. Paravertebral soft tissues are unremarkable. Impression: Moderate degenerative spondylosis at C5-C6, as above. Mild degenerative change of the remainder of the cervical spine, as above. Reviewed, dictated and finalized at [facility]. L CUTTER Impression: Moderate degenerative spondylosis at C5-C6, as above. Mild degenerative change of the remainder of the cervical spine, as above.
== END 2023-09-13 12:39 | disposition home or self-care (01) ==
PROVIDERS: PCP Internal Medicine; Visit Provider Neurological Surgery
DX: M43.06 Spondylolysis, lumbar region (principal); M47.892 Other spondylosis, cervical region; Z98.1 Arthrodesis status
CPT/HCPCS: 72110; 72141

== ENCOUNTER 2023-09-25 14:07 | Outpatient (CLI) | payer OTHER, SELFPAY ==
[2023-09-25 14:35] LABS: Hematocrit 37.9 % (37.0-47.0); Hemoglobin 12.1 g/dL (12.0-15.0); Mean Corpuscular HGB Conc 31.9 g/dl (32-36); Mean Corpuscular Hemoglobin 28.1 pg (26-34); Mean Corpuscular Volume 87.9 fl (80-100); Mean Platelet Volume 10.7 fl (7.4-10.4); Platelet Count Result 359 k/mm3 (150-375); Red Blood Count 4.31 M/mm3 (4.2-5.4); Red Cell Distribution Width 14.6 % (11.5-14.5); White Blood Count 12.8 K/mm3 (4.5-10.0)
[2023-09-25 14:36] LABS: Appearance Urine Clear (Clear); Bacteria Urine None Seen /hpf; Bilirubin Urine Negative (Negative); Blood Urine Negative (Negative); Color Urine Yellow (Yellow); Glucose Urine UA Negative (Negative); Ketones Urine Negative (Negative); Leukocyte Esterase Ur Trace LEU/UL (Negative); Nitrate Urine Negative (Negative); Non Pathogenic Casts 0-2; Protein Urine Negative (Negative); RBC Urine 0-2 /hpf (0-2); Specific Grav Ur 1.007 (1.001-1.035); Squamous Epithelial Cell Urine Occasional /hpf (Few); Urobilinogen Urine 0.2 mg/dL (<2.0); WBC Urine 0-5 /hpf; pH Urine 6.5 (5.0-9.0)
[2023-09-25 14:38] LABS: Add Urine Microscopic? YES
[2023-09-25 14:40] LABS: INR 0.9; Prothrombin Time 12.3 Seconds (11.1-14.7)
[2023-09-25 14:41] LABS: Partial Thromboplastin Time 33.4 SECONDS (22.3-36.8)
[2023-09-25 14:51] LABS: Anion Gap 8 mmol/L (8-16); Blood Urea Nitrogen 16 mg/dL (7-17); Calcium 9.2 mg/dL (8.4-10.2); Carbon Dioxide 33 mmol/L (22-30); Chloride 98 mmol/L (98-107); Estimated Glomerular Filt Rate 51; Glucose 116 mg/dL (65-110); Potassium 3.6 mmol/L (3.4-5.0); Sodium 139 mmol/L (137-145)
== END 2023-09-25 14:08 | disposition home or self-care (01) ==
LOC: ANHSURGERY 14:12
PROVIDERS: PCP Internal Medicine; Visit Provider Neurological Surgery
DX: M48.02 Spinal stenosis, cervical region (principal); M50.30 Other cervical disc degeneration, unspecified cervical region; Z01.818 Encounter for other preprocedural examination
CPT/HCPCS: 36415; 80048; 81001; 85027; 85610; 85730; 86850; 86900; 86901

== ENCOUNTER 2023-10-03 02:44 | Day surgery (SDC) | payer OTHER, SELFPAY ==
[2023-07-10 14:43] VITALS: BMI 32.5
--- NOTE | 2023-07-10 14:59 | PC.NURSE ---
Report to the Outpatient Waiting Room, entrance under the green pavilion located off [facility], at time _0600 on date ___07/18/23____. Planned Procedure Time: __07 . Time changes happen often and if your time is changed the preop area will call you the afternoon before. - You and your visitor will be asked to self-screen and do not enter if you have any COVID symptoms. - A mask is optional within the hospital at this time. Patients may have clear liquids (water, carbonated beverages, clear teas, apple juice) until 3 hours prior to surgery with a maximum of 20 ounces. - No food from midnight until time of surgery - Infants may have breast milk until 4 hours before surgery, formula 6 hours prior to surgery. - Children will be allowed to drink immediately following surgery. If applicable, please bring a bottle or sippy cup to assist with drinking. Juice, water, soda, and popsicles are readily available. For infants on formula, please bring formula the day of surgery. Pacifiers are allowed. Take the following medications with a SIP of water the morning of surgery: __Methocarbamol and pregabalin DO NOT STOP ANY OF YOUR OTHER PRESCRIPTION MEDICATIONS PRIOR TO SURGERY ?EXCEPT THE FOLLOWING Medications to discontinue per physician N/A Date to take last dose____N/A Please no make-up, nail marshallese, hairspray, perfume, deodorant, or body powder the day of surgery. No jewelry (including any body piercings) or valuables the day of surgery, leave them at home. Please take a shower or bath the night before, or the morning of, surgery with an antibacterial soap. Wear comfortable, loose fitting clothing. Children are encouraged to wear pajamas. - Jewelry must be removed prior to entering the operating room. Rings and piercings that are not removed may be cut off. - The hospital will not accept responsibility for valuables. - Please leave all valuables, including medications, at home the day of surgery. If you are going home after surgery, a licensed pharmacy delivery driver must drive you home. - NO public transportation without another adult if you receive anesthesia. - We recommend that an adult stay with you for 24 hours following discharge. - We also recommend that you do not drive, make important decision, drink alcoholic beverages, or take any drugs that were not prescribed by your health care provider for at least 24 hours after your discharge time. For Pediatric surgeries, we recommend two adults accompany the child home. Follow any additional instructions given to you from your surgeon. If you or anyone in your household have experienced Covid symptoms in the past week, please notify your surgeon or the nurse liaison at the phone number below for possible testing. Telephone instructions given to ___JAGDISH SOSA and asked if any additional questions and then verbalized understanding. Patient advised to call surgeon office or pre surgery nurse liaison [phone] if any additional questions.
[2023-09-24 09:18] VITALS: BMI 32.5
--- NOTE | 2023-09-24 09:21 | PC.NURSE ---
Report to the Outpatient Waiting Room, entrance under the green pavilion located off [facility], at time 6:00 on date 10/03/23. Planned Procedure Time: 7:30. Time changes happen often and if your time is changed the preop area will call you the afternoon before. - You and your visitor will be asked to self-screen and do not enter if you have any COVID symptoms. - A mask is optional within the hospital at this time. Patients may have clear liquids (water, carbonated beverages, clear teas, apple juice) until 3 hours prior to surgery (4:30) with a maximum of 20 ounces. - No food from midnight until time of surgery Take the following medications with a SIP of water the morning of surgery: METHOCARBAMOL, PREGABALIN, INHALER/EYE DROPS NEEDED DO NOT STOP ANY OF YOUR OTHER PRESCRIPTION MEDICATIONS PRIOR TO SURGERY ?EXCEPT THE FOLLOWING Medications to discontinue per physician: KETOROLAC Date to take last dose: PER DR. MONSIVAIS Please no make-up, nail tamazight, hairspray, perfume, deodorant, or body powder the day of surgery. No jewelry (including any body piercings) or valuables the day of surgery, leave them at home. Please take a shower or bath the night before, or the morning of, surgery with an antibacterial soap. Wear comfortable, loose fitting clothing. - Jewelry must be removed prior to entering the operating room. Rings and piercings that are not removed may be cut off. - The hospital will not accept responsibility for valuables. - Please leave all valuables, including medications, at home the day of surgery. If you are going home after surgery, a licensed bus van driver must drive you home. - NO public transportation without another adult if you receive anesthesia. - We recommend that an adult stay with you for 24 hours following discharge. - We also recommend that you do not drive, make important decision, drink alcoholic beverages, or take any drugs that were not prescribed by your health care provider for at least 24 hours after your discharge time. Follow any additional instructions given to you from your surgeon. If you or anyone in your household have experienced Covid symptoms in the past week, please notify your surgeon or the nurse liaison at the phone number below for possible testing. Telephone instructions given to PT - UZMA SOSA and asked if any additional questions and then verbalized understanding. Patient advised to call surgeon office or pre surgery nurse liaison [phone] if any additional questions.
[2023-10-03] VITALS (20 sets, daily range): BP systolic 89–146; BP diastolic 48–92; PULSE 72–113; RESP 13–20; TEMP 36.3–37.2; O2SAT 91–99; BMI 31.8
--- NOTE | ~2023-10-03 | XR_ITS ---
EXAMINATION: XR fluoroscopy no charge DATE: 10/03/2023 10:29 INDICATION: Cervical discectomy TECHNIQUE: 2 fluoroscopic images of the spine and frontal and lateral projections were obtained jose eduardo mcgowan procedure performed by Dr. Garcia. Radiologist was not present for the imaging or procedure. The a mount of fluoroscopy time used during this procedure was 0.1 minutes. COMPARISON: Cervical spine MR dated 09/13/2023 FINDINGS: Again seen is a C3-C4 anterior spinal fusion with interbody fusion device. There've been discectomies with interbody fusion devices at C4-C5 and C5-C6. There is no overlying C4-C6 anterior plate and scr ew fixation. A few surgical clips project over the more anterior precervical soft tissues where there is expected small amount of postoperative soft tissue gas. Endotracheal tube extends below the level of the thoracic inlet. IMPRESSION: 1. Fluoroscopy utilized during instrumented C4-C6 anterior spinal fusion. See procedure note for furt her detail. Reviewed, dictated and finalized at location B. IMPRESSION: 1. Fluoroscopy utilized during instrumented C4-C6 anterior spinal fusion. See p vic note for further detail.
[2023-10-03] MEDS: LACTATED RINGERS 1,000 ML 30 ML IV CONT ×2 (07:00→10:55)
--- NOTE | 2023-10-03 07:13 | WPDANESEPPF ---
Anes - Initial Pre Proc Eval Procedure: Operation Date: 10/03/23 07:30 Proposed Procedures p Anterior Cervical Discectomy and Fusion C4-5, C5-6 - Katiana Garcia MD Date/Time: 10/03/23 07:13 Surgeon: Katiana Garcia MD Pre Op Diagnosis: cervical radic, hx cervical arthrodesis Patient Data Age: 58 Gender: F Height: 1.63 m Weight: 84.1 kg Allergies Allergy/AdvReac Type Severity Reaction Status Date / Time meloxicam Allergy Severe Anaphylactic Verified 10/03/23 06:16 Shock shellfish derived Allergy Severe Anaphylactic Verified 10/03/23 06:16 Shock venlafaxine [From Effexor] Allergy Mild Rash Verified 10/03/23 06:16 aspirin Allergy Unknown Anaphylactic Verified 10/03/23 06:16 Shock iodine Allergy Unknown Anaphylactic Verified 10/03/23 06:16 Shock NSAIDS (Non-Steroidal Allergy Rash Verified 10/03/23 06:16 Anti-Inflamma Home Medications Medication Instructions Recorded Confirmed Type hydrochlorothiazide 12.5 mg tablet 12.5 mg PO DAILY 01/05/22 09/24/23 History methocarbamol 500 mg tablet 750 mg PO BID 01/05/22 09/24/23 History pregabalin 150 mg capsule (Lyrica) 150 mg PO BID 01/05/22 09/24/23 History albuterol sulfate 90 mcg/actuation 1 - 2 inh inhalation Q4H PRN 04/13/22 09/24/23 History aerosol inhaler (Ventolin HFA) Shortness Of Breath dicyclomine 20 mg tablet 20 mg PO TID 04/13/22 09/24/23 History diphenhydramine HCl 25 mg tablet 25 mg PO TID 04/13/22 09/24/23 History (Allergy (diphenhydramine)) candesartan 16 mg tablet 32 mg PO DAILY 10/19/22 09/24/23 History ketorolac 10 mg tablet 10 mg PO Q6H PRN Pain 10/19/22 10/03/23 History atorvastatin 40 mg tablet 40 mg PO DAILY 12/26/22 09/24/23 History melatonin 5 mg/15 mL oral liquid 20 mg PO HS 12/26/22 09/24/23 History quetiapine 200 mg tablet 400 mg PO HS 12/26/22 09/24/23 History omeprazole 40 mg capsule,delayed 40 mg PO .daily #30 caps 01/02/23 09/24/23 Rx release varenicline 1 mg tablet (Chantix) 1 mg PO BID 07/10/23 09/24/23 History brinzolamide 1 %-brimonidine 0.2 % 1 drp EACH EYE TID 08/30/23 09/24/23 History eye drops,suspension (Simbrinza) latanoprost 0.005 % eye drops 1 drp EACH EYE DAILY 08/30/23 09/24/23 History lidocaine 4 % topical patch 1 patch topical DAILY PRN Pain 08/30/23 09/24/23 History (Aspercreme (lidocaine)) mirtazapine 15 mg tablet (Remeron) 15 mg PO HS 09/24/23 09/24/23 History Patient hx anesthesia problems: none Family hx anesthesia problems: none Results Review: All pre-operative results and documents have been reviewed as part of the pre-operative evaluation. [facility] Past Medical History Medical History Acute LUQ pain Allergies Colon cancer screening Epigastric pain Erosive gastritis History of COPD Hx of chronic arthritis Hypertension Kidney disease Migraine Seizures Tobacco abuse Family History Family History Father Carcinoma of colon Lung cancer Mother Heart disease Hypertension Depression Sibling Heart disease Hypertension Social History Social History Smoking packs per day: 1 Smoking cigarettes per day: 20.0 Years smoked: 42 Smoking pack-years: 42.00 Smoking status: Former smoker Tobacco type: cigarettes Second hand tobacco smoke exposure: Yes Smoking end date: 03/23/23 Alcohol intake: never Substance use: never Substance use type: does not use Last use: 4 months ago Do You Feel Safe in your Home?: Yes Lack of Transportation: No Lack of Food: Never True Current Housing: I Have Housing Concerned About Future Housing: No Difficulty Paying Gas/Electric Bills: No Difficulty Paying for Meds: No Currently Unemployed: No Education: High School Diploma/GED Difficulty w/ Childcare or Family Care: Decline to Answer Living arrangements: alone
--- NOTE | 2023-10-03 07:24 | WPDHPUPDATE1 ---
History and Physical Update Update Date/Time: 10/03/23 07:24 History and Physical has been reviewed, including an updated exam of the patient. There are NO changes in the patient's condition. Risks, benefits, and alternatives have been discussed and questions answered. Patient agrees to proceed with procedure.
--- NOTE | 2023-10-03 07:25 | PM.IMHP ---
H&P: HPI History of Present Illness Date/Time: 10/03/23 07:25 Chief Complaint: left arm pain Narrative: Ms. Persaud is a 58-year-old female with history of hypertension, peripheral vascular disease, seizures, and previous ACDF C3-4 in 2015 who presents with neck and left arm pain.? In July 2022, she had a fall on ice since when she has had pain in her neck radiating down the left arm.? Pain can go into all fingers but most commonly it involves the 4th and 5th fingers.? Her neck pain is constant and has been worsening over the last few months, and the arm pain is more intermittent.? ? She has tried Toradol and lidocaine patches for pain. She had a course of physical therapy in December which was not very helpful.? She has had a couple epidural steroid injections with Dr. Cruz which have provided significant but temporary relief of her symptoms.? She reports some weakness in her left arm and left hand in particular, but she denies any myelopathic symptoms or right-sided symptoms.? She also reports some worsening low back pain in the midportion of her lumbar spine radiating down toward the tailbone.? She denies any significant worsening of baseline paresthesias in the legs from neuropathy.? She denies any new weakness in her legs or bowel or bladder changes. ? She notably is a former smoker and has not smoked in last 5 months.? She otherwise denies any changes in her medical issues since I last saw her in April.? She lives alone but has a manager rn case who helps her with her health decisions. Review of Systems Review of Systems: All systems reviewed & are unremarkable except as noted in HPI and below PMFSH Past Medical History Medical History Acute LUQ pain Allergies Colon cancer screening Epigastric pain Erosive gastritis History of COPD Hx of chronic arthritis Hypertension Kidney disease Migraine Seizures Tobacco abuse Family History Family History Father Carcinoma of colon Lung cancer Mother Heart disease Hypertension Depression Sibling Heart disease Hypertension Social History Social History Smoking packs per day: 1 Smoking cigarettes per day: 20.0 Years smoked: 42 Smoking pack-years: 42.00 Smoking status: Former smoker Tobacco type: cigarettes Second hand tobacco smoke exposure: Yes Smoking end date: 03/23/23 Alcohol intake: never Substance use: never Substance use type: does not use Last use: 4 months ago Do You Feel Safe in your Home?: Yes Lack of Transportation: No Lack of Food: Never True Current Housing: I Have Housing Concerned About Future Housing: No Difficulty Paying Gas/Electric Bills: No Difficulty Paying for Meds: No Currently Unemployed: No Education: High School Diploma/GED Difficulty w/ Childcare or Family Care: Decline to Answer Living arrangements: alone Spiritual care concerns: No Agree to blood products: Yes Meds Home Medications and Allergies Home Medications Medication Instructions Recorded Confirmed Type hydrochlorothiazide 12.5 mg tablet 12.5 mg PO DAILY 01/05/22 09/24/23 History methocarbamol 500 mg tablet 750 mg PO BID 01/05/22 09/24/23 History pregabalin 150 mg capsule (Lyrica) 150 mg PO BID 01/05/22 09/24/23 History albuterol sulfate 90 mcg/actuation 1 - 2 inh inhalation Q4H PRN 04/13/22 09/24/23 History aerosol inhaler (Ventolin HFA) Shortness Of Breath dicyclomine 20 mg tablet 20 mg PO TID 04/13/22 09/24/23 History diphenhydramine HCl 25 mg tablet 25 mg PO TID 04/13/22 09/24/23 History (Allergy (diphenhydramine)) candesartan 16 mg tablet 32 mg PO DAILY 10/19/22 09/24/23 History ketorolac 10 mg tablet 10 mg PO Q6H PRN Pain 10/19/22 10/03/23 History atorvastatin 40 mg tablet 40 mg PO DAILY 12/26/22 09/24/23 History melatonin 5 mg/15 mL oral liquid 20
[2023-10-03] MEDS: ceFAZolin 2 GM/D5W 50 ML 2 GM/50 ML BAG IVPB ×2 (07:52→15:59)
[2023-10-03] MEDS: BUPIVACAINE/EPINEPHRINE 0.5% 30 ML VIAL INFILTRATE (08:11)
--- NOTE | 2023-10-03 09:25 | SUR.OPER ---
PRE OP NOTED HANDGRIP LEFT WEAKER THAN RIGHT/+ SENSATION IN ALL FINGERS BILATERAL.
--- NOTE | 2023-10-03 09:54 | SUR.OPER ---
I FACTOR BONE GRAFT LOT [id number], EXP 2025-09-19 X1 TI3Z CERVICAL INTERBODY SYSTEM 6MM EXP 2028-06-22 LOT [id number] TI3Z CERVICAL INTERBODY SYSTEM 6MM EXP 2028-06-21 LOT [id number]
--- NOTE | 2023-10-03 10:13 | SUR.OPER ---
niel ex plate 32mm x1, 14mm variable screws x6
--- NOTE | 2023-10-03 10:39 | PM.OP ---
Procedure Note - Brief Procedure Note - Brief Date of procedure: 10/03/23 cervical radic, hx cervical arthrodesis Post-op diagnosis: Same Procedure performed: ACDF C4-5, C5-6 Surgeon: Katiana Garcia MD Anesthesia: GETA Findings: ACDF C4-5, C5-6 completed without complication Drains: No Packing: No Pathology: None sent Complications: None Condition: Stable Disposition: PACU
--- NOTE | 2023-10-03 10:59 | W.PM.PROC2 ---
Procedure Note - Detailed Date of Procedure 10/03/23 Pre-op Diagnosis cervical radic, hx cervical arthrodesis Post-op Diagnosis Same Procedure Performed 1. Anterior cervical diskectomy C4-5, C5-6 2. Anterior cervical arthrodesis C4-5, C5-6 with i-Factor 3. Anterior cervical interbody placement at C4-5, C5-6 4. Use of microscope for microsurgical dissection 5. Use of C-arm for fluoroscopy Surgeon Katiana Garcia MD [facility] Anesthesia General Findings Ms. Persaud is a 58-year-old female with history of previous ACDF C3-4 who presents with neck and left arm pain radiating into the shoulder and first and second fingers which has been unresponsive to physical therapy and epidural steroid injections. 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 I recommended surgery in the form of ACDF C4-5 and C5-6. Risks including bleeding, pain, infection, weakness, paralysis, stroke, vocal cord damage, coma, and anesthetic risks were discussed. The patient provided written informed consent to proceed. Description of Procedure The patient was taken to the operating room and was transferred to the operating table in the supine position. General anesthesia was induced. Pressure points were appropriately padded, and compression devices were placed on the patient's calves. A shoulder roll was placed. The appropriate level was confirmed with the C-arm XR imaging. The patient was prepped and draped in usual sterile fashion. Perioperative antibiotics were given. Time out was performed. Local anesthesia was injected into the planned incision site. Incision was made with a 10-blade scalpel on the right side of the neck. The subcutaneous tissue was undermined above the platysma with the Metzenbaum scissors. The platysma was sharply opened horizontally. Bleeding was controlled with the bipolar. The avascular plane to the spine was dissected sharply. The anterior border of the spine was located and exposed with sharp and blunt dissection. A spinal needle was used to localize the C4-5 disc space; this was confirmed on fluoroscopy. The longus coli muscles were elevated bilaterally with a bovie. A large osteophyte was noted at C5-6 which was covering the disc space. This was removed with a combination of the drill and a Leksell to expose the disc. Once the C4, C5, and C6 vertebral bodies and adjacent intervertebral discs were adequately exposed, self-retaining retractors were placed. Glenhaven pins were placed in the C4 and C5 vertebral bodies and were distracted. A 15-blade scalpel was used to incise the C4-5 disc. A combination of Kerrisons, currettes, and pituitary instruments were used to remove each disc. The microscope was draped and brought into the surgical field. The removal of disc and osteophytes were completed using a high-speed drill, multiple Kerrison punches, and currettes. The posterior longitudinal ligament was opened with a nerve hook and kerrison rongeurs until the neuroforamen bilaterally were adequately decompressed. Interbody trial instruments were used to determine the appropriate size for the prosthetic vertebral interbody cage. Hemostasis was achieved in the disc space with surgiflo and cottonoid patties. A 7mm interbody was filled with i-Factor and placed at C4-5. The caspar pin was removed from C4 and replaced in C6. Wax was placed in the caspar pin site. This process was repeated at the C5-6 disc. The disc was removed as described above, and the posterior longitudinal ligament was opened until the neuroforamen bilaterally were adequately decompressed. Interbody trial instruments were used to determine the appropriate size for the prosthetic vertebral interbody cage. Hemostasis was achieved in the disc space. A 6mm interbody was filled with i-Factor and placed at C5-6. The Glenhaven pins were removed, and bone wax was used for hemostasis. Osteophytes over the vertebral bodies were removed with a Leksell and high-speed drill. A 32m
[2023-10-03] MEDS: fentaNYL CITRATE INJ (*CRX) 100 MCG/2 ML VIAL 25 MCG IV PUSH ×5 (11:13→11:50)
--- NOTE | 2023-10-03 11:15 | SUR.PHASEI ---
1112 - dr. waldrop at bedside talking with pt
[2023-10-03] MEDS: ONDANSETRON INJ 4 MG/2 ML VIAL IV PUSH (11:24)
[2023-10-03] MEDS: ePHEDrine sulfate INJ 50 MG/ML AMPUL 10 MG IV PUSH ×2 (12:15→12:20)
[2023-10-03] MEDS: oxyCODONE HCL (*CRX) 5 MG TAB IR PO (14:01)
[2023-10-03] MEDS: SODIUM CHLORIDE 0.9% IV 1,000 ML 100 ML IV CONT (14:02)
[2023-10-03] MEDS: diphenhydrAMINE HCl CAP 25 MG CAPSULE PO ×2 (14:04→16:31)
[2023-10-03] MEDS: DICYCLOMINE HCL 10 MG CAPSULE 20 MG PO ×2 (14:04→16:30)
--- NOTE | 2023-10-03 14:10 | ADMGEN ---
This patient, Melinda Persaud, was admitted to [facility] Surg Room 314-01. Patient/family oriented to hospital policies and general routines including ID bracelet, bed and alarms, visiting hours, pain management, procedures, bathroom and other care routines, personal items, smoking policy, room service/diet, and visiting hours. Information on how to activate the Rapid Response Team has been discussed. Patient/Family are encouraged to report perceived risks to care and to ask questions if they do not understand what they are told or what they should do.
[2023-10-03] MEDS: BRINZOLAMIDE 1% OPHTH SUSP 10 ML 1 DROP EACH EYE ×2 (15:59→22:03)
[2023-10-03] MEDS: LIDOCAINE 5% PATCH 1 PATCH TRANSDERM (15:59)
[2023-10-03] MEDS: CYCLOBENZAPRINE HCL 10 MG TABLET PO (16:05)
[2023-10-03] MEDS: PREGABALIN (*CRX) 75 MG CAPSULE 150 MG PO (16:05)
[2023-10-03] MEDS: VARENICLINE 1 MG TABLET PO (17:48)
[2023-10-03] MEDS: QUEtiapine FUMARATE 100 MG TABLET 400 MG PO (17:48)
[2023-10-03] MEDS: oxyCODONE HCL (*CRX) 5 MG TAB IR 10 MG PO (17:48)
[2023-10-03] MEDS: DOCUSATE SODIUM 100 MG CAPSULE PO (21:54)
[2023-10-03] MEDS: MELATONIN 5 MG TABLET 20 MG PO (21:55)
[2023-10-03] MEDS: MIRTAZAPINE 15 MG TABLET PO (21:57)
[2023-10-04] MEDS: ceFAZolin 2 GM/D5W 50 ML 2 GM/50 ML BAG IVPB ×2 (01:23→08:32)
[2023-10-04 01:35] VITALS: BP 114/63; PULSE 109; RESP 17; TEMP 37.3; O2SAT 97
[2023-10-04] MEDS: oxyCODONE HCL (*CRX) 5 MG TAB IR 10 MG PO (01:39)
[2023-10-04 05:22] VITALS: BP 127/69; PULSE 120; RESP 17; TEMP 37.3; O2SAT 93
[2023-10-04 08:00] VITALS: BP 116/56; PULSE 11; RESP 113; TEMP 37.3; O2SAT 94
[2023-10-04] MEDS: DICYCLOMINE HCL 10 MG CAPSULE 20 MG PO (08:27)
[2023-10-04] MEDS: ATORVASTATIN 40 MG TABLET PO (08:27)
[2023-10-04] MEDS: diphenhydrAMINE HCl CAP 25 MG CAPSULE PO (08:27)
[2023-10-04] MEDS: PREGABALIN (*CRX) 75 MG CAPSULE 150 MG PO (08:27)
[2023-10-04] MEDS: hydroCHLOROthiazide 12.5 MG CAPSULE PO (08:27)
[2023-10-04] MEDS: DOCUSATE SODIUM 100 MG CAPSULE PO (08:27)
[2023-10-04] MEDS: LATANOPROST 0.005% OP SOLN 2.5 ML BTL 1 DROP EACH EYE (08:27)
[2023-10-04] MEDS: PANTOPRAZOLE 40 MG TABLET PO (08:27)
[2023-10-04] MEDS: CANDESARTAN CILEXETIL 16 MG TABLET 32 MG PO (08:27)
[2023-10-04] MEDS: VARENICLINE 1 MG TABLET PO (08:27)
[2023-10-04] MEDS: BRINZOLAMIDE 1% OPHTH SUSP 10 ML 1 DROP EACH EYE (08:27)
--- NOTE | 2023-10-04 08:28 | WPDANESPN ---
Anes - Prog Note Post-Op Date/Time: 10/04/23 08:28 Vital Signs: Last Vital Signs Temp 37.3 C 10/04/23 05:22 Pulse 120 H 10/04/23 05:22 Resp 17 10/04/23 05:22 BP 127/69 10/04/23 05:22 Pulse Ox 93 10/04/23 05:22 O2 Del Method Room Air 10/03/23 20:00 O2 Flow Rate 1 10/03/23 16:00 Pain Score (VAS): 2 I/O: Intake & Output 10/03/23 10/04/23 10/04/23 23:59 07:59 15:59 Intake Total 410 1670 Balance 410 1670 Patient Feedback: Patient satisfied with anesthetic care.
== END 2023-10-04 10:45 | disposition home or self-care (01) ==
LOC: ANHSURGERY 05:49 → ANH3MEDSUR 13:40
PROVIDERS: PCP Internal Medicine; Visit Provider Neurological Surgery
PROC: (CPT 63030; principal; 2023-10-03 07:30)
DX: M48.02 Spinal stenosis, cervical region (principal); M54.12 Radiculopathy, cervical region; Z98.1 Arthrodesis status; I10 Essential (primary) hypertension; J44.9 Chronic obstructive pulmonary disease, unspecified; G40.909 Epilepsy, unspecified, not intractable, without status epilepticus; I73.9 Peripheral vascular disease, unspecified; Z87.891 Personal history of nicotine dependence; Z79.51 Long term (current) use of inhaled steroids
CPT/HCPCS: 22551; 22552; 22853 ×2; 97116; 97161; 97165; 97530; 97535; 99199; A9270; C1713; J0690; J1170; J2250; J2405; J2704; J3010; J7030; J7120

== ENCOUNTER 2023-10-31 12:27 | Outpatient (CLI) | payer OTHER, SELFPAY ==
--- NOTE | ~2023-10-31 | MR_ITS ---
MRI of the cervical spine Clinical History: Neck pain, other signs symptoms Technique: Axial T2-weighted and gradient images, and sagittal T1-weighted, T2-weighted, and STIR tanisha ges were acquired. COMPARISON: 09/13/2023 Findings: Patient is status post interval anterior fusion from C4 to C6, with associated hardware and susceptibility artifact. Osseous alignment appears essentially unchanged. No suspicious bone marrow signal abnormality seen. No acute fracture or subluxation evident. At C2-C3, there is no significant disc bulge or herniation. There is probable mild right neural stormy inal narrowing. Left neural foramen preserved. No central canal stenosis or cord compression. At C3-C4, there is no canal stenosis or cord compression. Probable right neural foraminal narrowing. Left neural foramen preserved. At C4-C5, there is minimal canal stenosis without christie cord compression. There is left neural forami nal narrowing. Right neural foramen probably preserved. At C5-C6, there is mild canal stenosis without christie cord compression. There is bilateral neural fora rishabh narrowing. At C6-C7, there is no canal stenosis or cord compression. Neural foramina are probably preserved. No abnormal signal seen in the spinal cord. Paravertebral soft tissues are unremarkable aside from po stoperative change. Impression: Status post interval anterior fusion from C4 through C6. Mild degenerative spondylosis, as above. Reviewed, dictated and finalized at [facility]. Impression: Status post interval anterior fusion from C4 through C6. Mild degenerative spondylosis, as above.
--- NOTE | ~2023-10-31 | XR_ITS ---
EXAMINATION: XR_CERV2-3V_CR DATE: 10/31/2023 12:42 INDICATION: Numbness and pain in the right arm and hand. TECHNIQUE: 3 views of cervical spine were obtained. COMPARISON: None. FINDINGS: There is 18 degrees levoscoliosis of cervicothoracic spine. There are changes of anterior f usion procedures from C3 to C6 with interbody devices and anterior plate and screws. There is severel y decreased disc height at C6-C7. There is multilevel facet joint osteoarthritis, severe on the left at C4-C5. There is mild central canal stenosis at C5-C6 and C6-C7. No prevertebral soft tissue swelli ng. IMPRESSION: 1. Severe cervical spondylosis. 2. Anterior fusion procedures from C3 to C6. 3. Cervicothoracic levoscoliosis. Reviewed, dictated and finalized at location A.
== END 2023-10-31 12:28 | disposition home or self-care (01) ==
LOC: ANHIMG 12:28
PROVIDERS: PCP Internal Medicine; Visit Provider Neurological Surgery
DX: R29.898 Other symptoms and signs involving the musculoskeletal system (principal); M48.02 Spinal stenosis, cervical region; M50.30 Other cervical disc degeneration, unspecified cervical region; M47.892 Other spondylosis, cervical region; Z98.1 Arthrodesis status
CPT/HCPCS: 72040; 72141

== ENCOUNTER 2023-12-10 08:47 | Outpatient (CLI) | payer OTHER, SELFPAY ==
--- NOTE | 2023-12-10 11:00 | NEURO_ITS ---
Clinical note: Patient complains of paresthesias in the right 4th and 5th digits and occasional numbness in fingers in the left hand. On examination no significant deformity or weakness atrophy of the muscles were noted in the upper limbs at this time. Summary of findings 1. Left and right median and radial and ulnar sensory distal latencies and amplitudes were within acceptable normal limits Except right ulnar digital sensory and patient was moderately decreased. 2. Left and right median motor distal latencies amplitudes within acceptable normal limits. 3. Right ulnar motor distal latency was normal and amplitude is mild decreased, however there is a significant conduction slowing across the elbow. Left ulnar motor distal latency amplitude and conduction velocity were normal limits. 4. Bilateral median and ulnar motor distal latency also compared while recording over lobe recall and interossei. These appeared comparable. 5. EMG examination performed on both upper limb which shows moderate denervation changes and loss of recruitment in the right 1st dorsal interossei and mild loss of recruitment in the right foot flexor digitorum profundus on the head. Remainder of the evaluation was unremarkable. 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 Significant focal slowing was noted across the right elbow. In addition moderate denervation changes were seen in the right 1st dorsal interossei and mild to moderate loss of motor unit recruitment was noted in FDP ulnar head and 1st DI. EMG nerve conduction study findings in the left upper limb are considered within acceptable normal limits. Alexei hernandez MD, FAAN Neurologist Nerve Conduction Studies Anti Sensory Summary Table Stim Site NR Onset (ms) Peak (ms) P-T Amp (?V) Site1 Site2 Delta-0 (ms) Dist (mm) Vitor (m/s) Left Median Anti Sensory (3 Digit) Wrist 2.0 2.9 37.3 Wrist 3 Digit 2.0 135 68 Right Median Anti Sensory (3 Digit) Wrist 2.5 3.0 53.4 Wrist 3 Digit 2.5 130 52 Left Radial Anti Sensory (Base 1st Digit) Wrist 1.3 1.8 27.3 Wrist Base 1st Digit 1.3 0 Right Radial Anti Sensory (Base 1st Digit) Wrist 1.3 1.8 42.1 Wrist Base 1st Digit 1.3 0 Left Ulnar Anti Sensory (5th Digit) Wrist 2.3 2.8 30.5 Wrist 5th Digit 2.3 135 59 Right Ulnar Anti Sensory (5th Digit) Wrist 2.6 3.2 11.4 Wrist 5th Digit 2.6 130 50 Motor Summary Table Stim Site NR Onset (ms) O-P Amp (mV) Site1 Site2 Delta-0 (ms) Dist (mm) Vitor (m/s) Right Median-Ulnar Motor (Lum 2/INT 2) MEDIAN 2.8 1.9 ULNAR 3.1 2.2 Left Median Motor (Abd Poll Brev) Wrist 3.0 5.8 Wrist Elbow 3.6 210 58 Elbow 6.6 5.5 Right Median Motor (Abd Poll Brev) Wrist 3.8 5.6 Wrist Elbow 3.4 210 62 Elbow 7.2 5.4 Left Ulnar Motor (Abd Dig Minimi) Wrist 2.6 8.3 B Elbow Wrist 3.4 180 53 B Elbow 6.0 8.4 A Elbow B Elbow 1.3 70 54 A Elbow 7.3 8.2 Right Ulnar Motor (Abd Dig Minimi) Wrist 2.7 5.5 B Elbow Wrist 4.3 190 44 B Elbow 7.0 3.8 A Elbow B Elbow 2.7 70 26 A Elbow 9.7 3.9 Motor Inching Summary Table Stim Site NR Onset (ms) Peak (ms) O-P Amp (mV) Site1 Site2 Delta-0 (ms) Dist (mm) Vitor (m/s) Left Ulnar Motor Inching (Abd Dig Minimi) -2 cm 5.9 9.8 4.9 Comparison Summary Table Stim Site NR Onset (ms) Peak (ms) P-T Amp (?V) Site1 Site2 Vitor (m/s) Dist (mm) Left Median/Ulnar Palm Comparison (Wrist - 8cm)
== END 2023-12-10 08:48 | disposition home or self-care (01) ==
LOC: ANHNEURO 08:48
PROVIDERS: PCP Internal Medicine; Visit Provider Neurological Surgery
DX: G56.21 Lesion of ulnar nerve, right upper limb (principal); R29.898 Other symptoms and signs involving the musculoskeletal system
CPT/HCPCS: 95886; 95912

== ENCOUNTER 2024-02-22 12:54 | Outpatient (CLI) | payer OTHER, SELFPAY ==
[2024-02-22 13:52] LABS: Hematocrit 37.4 % (37.0-47.0); Hemoglobin 10.9 g/dL (12.0-15.0); Mean Corpuscular HGB Conc 29.1 g/dl (32-36); Mean Corpuscular Hemoglobin 27.6 pg (26-34); Mean Corpuscular Volume 94.7 fl (80-100); Mean Platelet Volume 10.6 fl (7.4-10.4); Platelet Count Result 256 k/mm3 (150-375); Red Blood Count 3.95 M/mm3 (4.2-5.4); Red Cell Distribution Width 16.4 % (11.5-14.5); White Blood Count 7.5 K/mm3 (4.5-10.0)
[2024-02-22 13:55] LABS: INR 0.9; Prothrombin Time 12.3 Seconds (11.1-14.7)
[2024-02-22 13:56] LABS: Partial Thromboplastin Time 31.9 Seconds (22.3-36.8)
[2024-02-22 14:01] LABS: Anion Gap 13 mmol/L (4-12); Blood Urea Nitrogen 14 mg/dL (7-17); Calcium 8.3 mg/dL (8.4-10.2); Carbon Dioxide 25 mmol/L (22-30); Chloride 101 mmol/L (98-107); Estimated Glomerular Filt Rate 46; Glucose 127 mg/dL (65-110); Potassium 4.1 mmol/L (3.4-5.0); Sodium 139 mmol/L (137-145)
[2024-02-22 14:15] LABS: Add Urine Microscopic? YES; Appearance Urine Clear (Clear); Bacteria Urine None Seen /hpf; Bilirubin Urine Negative (Negative); Blood Urine Negative (Negative); Color Urine Yellow (Yellow); Glucose Urine UA Negative (Negative); Ketones Urine Negative (Negative); Leukocyte Esterase Ur 1+ LEU/UL (Negative); Nitrate Urine Negative (Negative); Non Pathogenic Casts 0-2; Protein Urine Negative (Negative); RBC Urine 0-2 /hpf (0-2); Specific Grav Ur 1.014 (1.001-1.035); Squamous Epithelial Cell Urine Occasional /hpf (Few); Urobilinogen Urine 0.2 mg/dL (<2.0)
== END 2024-02-22 12:55 | disposition home or self-care (01) ==
LOC: ANHSURGERY 13:00
PROVIDERS: PCP Internal Medicine; Visit Provider Neurological Surgery
DX: R29.898 Other symptoms and signs involving the musculoskeletal system (principal); Z79.899 Other long term (current) drug therapy
CPT/HCPCS: 36415; 80048; 81001; 85027; 85610; 85730; 87086; 87088

== ENCOUNTER 2024-03-05 01:21 | Day surgery (SDC) | payer OTHER, SELFPAY ==
[2024-02-14 12:55] VITALS: BMI 20.2
--- NOTE | 2024-02-14 12:57 | PC.NURSE ---
Report to the Outpatient Waiting Room, entrance under the green pavilion located off [facility], at time _0600_ on date _[id number]_. Planned Procedure Time: _0730_. Time changes happen often and if your time is changed the preop area will call you the afternoon before. - You and your visitor will be asked to self-screen and do not enter if you have any COVID symptoms. - A mask is optional within the hospital at this time. Patients may have clear liquids (water, carbonated beverages, clear teas, apple juice) until 3 hours prior to surgery with a maximum of 20 ounces. - No food from midnight until time of surgery Take the following medications with a SIP of water the morning of surgery: ____Pregabalin and eye drops DO NOT STOP ANY OF YOUR OTHER PRESCRIPTION MEDICATIONS PRIOR TO SURGERY ?EXCEPT THE FOLLOWING Medications to discontinue per physician None Date to take last dose Please no make-up, nail yi, hairspray, perfume, deodorant, or body powder the day of surgery. No jewelry (including any body piercings) or valuables the day of surgery, leave them at home. Please take a shower or bath the night before, or the morning of, surgery with an antibacterial soap. Wear comfortable, loose fitting clothing. - Jewelry must be removed prior to entering the operating room. Rings and piercings that are not removed may be cut off. - The hospital will not accept responsibility for valuables. - Please leave all valuables, including medications, at home the day of surgery. If you are going home after surgery, a licensed seasonal delivery driver must drive you home. - NO public transportation without another adult if you receive anesthesia. - We recommend that an adult stay with you for 24 hours following discharge. - We also recommend that you do not drive, make important decision, drink alcoholic beverages, or take any drugs that were not prescribed by your health care provider for at least 24 hours after your discharge time. Follow any additional instructions given to you from your surgeon. If you or anyone in your household have experienced Covid symptoms in the past week, please notify your surgeon or the nurse liaison at the phone number below for possible testing. Telephone instructions given to __Ronda__and asked if any additional questions and then verbalized understanding. Patient advised to call surgeon office or pre surgery nurse liaison [phone] if any additional questions.
--- NOTE | 2024-02-28 09:50 | PC.NURSE ---
Report to the Outpatient Waiting Room, entrance under the green pavilion located off [facility], at time _0600_ on date _[id number]_. Planned Procedure Time: _0730_. Time changes happen often and if your time is changed the preop area will call you the afternoon before. - You and your visitor will be asked to self-screen and do not enter if you have any COVID symptoms. - A mask is optional within the hospital at this time. Patients may have clear liquids (water, carbonated beverages, clear teas, apple juice) until 3 hours prior to surgery with a maximum of 20 ounces. - No food from midnight until time of surgery Take the following medications with a SIP of water the morning of surgery: ___Pregabalin and eye drops DO NOT STOP ANY OF YOUR OTHER PRESCRIPTION MEDICATIONS PRIOR TO SURGERY ?EXCEPT THE FOLLOWING Medications to discontinue per physician None Date to take last dose Please no make-up, nail czech, hairspray, perfume, deodorant, or body powder the day of surgery. No jewelry (including any body piercings) or valuables the day of surgery, leave them at home. Please take a shower or bath the night before, or the morning of, surgery with an antibacterial soap. Wear comfortable, loose fitting clothing. - Jewelry must be removed prior to entering the operating room. Rings and piercings that are not removed may be cut off. - The hospital will not accept responsibility for valuables. - Please leave all valuables, including medications, at home the day of surgery. If you are going home after surgery, a licensed seasonal delivery driver must drive you home. - NO public transportation without another adult if you receive anesthesia. - We recommend that an adult stay with you for 24 hours following discharge. - We also recommend that you do not drive, make important decision, drink alcoholic beverages, or take any drugs that were not prescribed by your health care provider for at least 24 hours after your discharge time. Follow any additional instructions given to you from your surgeon. If you or anyone in your household have experienced Covid symptoms in the past week, please notify your surgeon or the nurse liaison at the phone number below for possible testing. Telephone instructions given to __Melinda__and asked if any additional questions and then verbalized understanding. Patient advised to call surgeon office or pre surgery nurse liaison [phone] if any additional questions.
[2024-03-05 06:27] VITALS: BP 146/95; PULSE 88; RESP 16; TEMP 36.8; O2SAT 96
[2024-03-05 06:30] VITALS: BMI 32.7
[2024-03-05] MEDS: LACTATED RINGERS 1,000 ML 30 ML IV CONT ×2 (06:40→09:03)
--- NOTE | 2024-03-05 07:17 | WPDANESEPPF ---
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 Patient Data Age: 59 Gender: F Height: 1.63 m Weight: 53.6 kg Allergies Allergy/AdvReac Type Severity Reaction Status Date / Time meloxicam Allergy Severe Anaphylactic Verified 02/28/24 09:49 Shock shellfish derived Allergy Severe Anaphylactic Verified 02/28/24 09:49 Shock venlafaxine [From Effexor] Allergy Mild Rash Verified 02/28/24 09:49 aspirin Allergy Unknown Anaphylactic Verified 02/28/24 09:49 Shock iodine Allergy Unknown Anaphylactic Verified 02/28/24 09:49 Shock NSAIDS (Non-Steroidal Allergy Rash Verified 02/28/24 09:49 Anti-Inflamma omega-3 acid ethyl esters Allergy Anaphylactic Verified 02/28/24 09:49 Shock Home Medications Medication Instructions Recorded Confirmed Type hydrochlorothiazide 12.5 mg tablet 12.5 mg PO DAILY 01/05/22 02/28/24 History pregabalin 150 mg capsule (Lyrica) 150 mg PO BID 01/05/22 02/28/24 History diphenhydramine HCl 25 mg tablet 25 mg PO TID 04/13/22 02/28/24 History (Allergy (diphenhydramine)) candesartan 16 mg tablet 32 mg PO DAILY 10/19/22 02/28/24 History ketorolac 10 mg tablet 10 mg PO Q6H PRN Pain 10/19/22 02/28/24 History atorvastatin 40 mg tablet 40 mg PO DAILY 12/26/22 02/28/24 History melatonin 5 mg/15 mL oral liquid 20 mg PO HS 12/26/22 02/28/24 History quetiapine 200 mg tablet 400 mg PO HS 12/26/22 02/28/24 History omeprazole 40 mg capsule,delayed 40 mg PO .daily #30 caps 01/02/23 02/28/24 Rx release varenicline 1 mg tablet (Chantix) 1 mg PO BID 07/10/23 02/28/24 History brinzolamide 1 %-brimonidine 0.2 % 1 drp EACH EYE TID 08/30/23 02/28/24 History eye drops,suspension (Simbrinza) latanoprost 0.005 % eye drops 1 drp EACH EYE DAILY 08/30/23 02/28/24 History lidocaine 4 % topical patch 1 patch topical DAILY PRN Pain 08/30/23 02/28/24 History (Aspercreme (lidocaine)) mirtazapine 15 mg tablet (Remeron) 15 mg PO HS 09/24/23 02/28/24 History cyclobenzaprine 10 mg tablet 10 mg PO TID PRN Muscle Spasms 10 10/19/23 02/28/24 Rx days #30 tabs Patient hx anesthesia problems: none Family hx anesthesia problems: none Results Review: All pre-operative results and documents have been reviewed as part of the pre-operative evaluation. [facility] Past Medical History Medical History Acute LUQ pain Allergies BMI 32.0-32.9,adult Cholecystectomy planned Colon cancer screening Epigastric pain Erosive gastritis History of COPD Hx of chronic arthritis Hypertension Kidney disease Migraine Seizures Tobacco abuse Surgical History Surgical History History of appendectomy History of hysterectomy Family History Family History Father Carcinoma of colon Lung cancer Mother Heart disease Hypertension Depression Sibling Heart disease Hypertension Social History Social History Smoking packs per day: 1 Smoking cigarettes per day: 20.0 Years smoked: 42 Smoking pack-years: 42.00 Smoking status: Former smoker Tobacco type: cigarettes Second hand tobacco smoke exposure: Yes Smoking end date: 02/13/23 Alcohol intake: never Substance use: never Substance use type: does not use Last use: 4 months ago Do You Feel Safe in your Home?: Yes Lack of Transportation: YES Lack of Food: Never True Current Housing: I Have Housing Concerned About Future Housing: No Difficulty Paying Gas/Electric Bills: No Difficulty Paying for Meds: No Currently Unemployed: No
--- NOTE | 2024-03-05 07:17 | WPDHPUPDATE1 ---
History and Physical Update Update Date/Time: 03/05/24 07:17 History and Physical has been reviewed, including an updated exam of the patient. There are NO changes in the patient's condition. Risks, benefits, and alternatives have been discussed and questions answered. Patient agrees to proceed with procedure.
[2024-03-05] MEDS: ceFAZolin 2 GM/D5W 50 ML 2 GM/50 ML BAG IVPB (07:32)
[2024-03-05] MEDS: BUPivacaine HCL 0.5% 10 ML AMP 20 ML INFILTRATE (07:32)
[2024-03-05 09:03] VITALS: BP 155/81; PULSE 85; RESP 16; O2SAT 100
[2024-03-05] MEDS: fentaNYL CITRATE INJ (*CRX) 100 MCG/2 ML VIAL 25 MCG IV PUSH ×3 (09:22→09:38)
--- NOTE | 2024-03-05 09:23 | PM.OP ---
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
[2024-03-05 09:33] VITALS: BP 120/83; PULSE 79; RESP 16
[2024-03-05] MEDS: oxyCODONE HCL (*CRX) 5 MG TAB IR PO (09:41)
[2024-03-05 10:00] VITALS: BP 154/91; PULSE 81; RESP 16
--- NOTE | 2024-03-05 10:19 | W.PM.PROC2 ---
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 Persaud is a 59-year-old female with history of ACDF C4-6 in September who has clinically done well from surgery but has since developed right cubital tunnel syndrome with persistent pain and paresthesias following an ulnar nerve distribution her right hand which has been resistant to medical management, bracing, and rest. On physical exam, she does have some weakness in her hand intrinsics on the right side. She has decreased sensation to light touch in the distal ulnar aspect of her right arm and hand. Given that she has failed conservative treatment, I have offered her surgery in the form of a right ulnar nerve decompression and transposition at the elbow. Surgical treatment in the form of ulnar nerve decompression and transposition at the elbow was recommended. Risks including bleeding, pain, infection, permanent nerve damage, worsened symptoms or failure to improve were discussed. The patient provided written informed consent to proceed Description of Procedure The patient was brought to the operating room where monitored anesthesia care was induced. The patient remained supine on the bed with the right arm extended onto an arm board. A curvilinear incision was planned between the medial epicondyle and the olecranon, extending 4cm distal and 4cm proximal to the medial epicondyle. The arm was prepped and draped in usual sterile fashion. Time out was performed. The incision was injected with local anesthetic. A 15-blade scalpel was used to open the incision. The bipolar was used to obtain hemostasis. A Metzenbaum scissors was used for alternating blunt and sharp dissection until the aponeurosis of the cubital tunnel was identified. The ulnar nerve was palpated in the cubital tunnel. The aponeurosis was opened sharply away from the ulnar nerve and fully opened both proximally and distally, extending through the fascia of the flexor carpi ulnaris. The course of the ulnar nerve was followed through the flexor carpi ulnaris to verify it was fully decompressed. The soft tissue above the flexor pronator origin was sharply and bluntly dissected to expose the medial intermuscular septum. This was excised sharply. Next, two fascial flaps were planned on the fascia of the flexor pronator muscle. These were sharply cut, with the distal flap reflected toward the nerve and the proximal flap reflected away from the nerve.This exposed the fascial septum which was then sharply removed as well. Pronator teres muscle was then released proximally to create a place for the ulnar nerve to sit once transposed. The ulnar nerve was mobilized and transposed, and the fascial flaps were loosely sutured together with a 2-0 Ethibond. The proximal and distal ends of the ulnar nerve were verified to be decompressed, and the elbow was mobilized to ensure the nerve did not develop any new areas of compression with transposition. The surgical site was copiously irrigated. Hemostasis was verified with the bipolar. The dermis was closed with 3-0 vicryl, and the skin was closed with 4-0 monocryl. Steristrips were placed across the incision which was then dressed with fluff gauze, kerlix, and an ANGIE bandage. The arm was placed into a sling. The patient was returned to anesthesia and awakened. The patient was transferred to PACU without incident. Billing code: [id number] Estimated Blood Loss 25 Drains No Packing No Pathology None sent Complications None Condition Stable Disposition PACU [facility] Billing Surgery - Charge Forward: Surgery Billing
== END 2024-03-05 10:18 | disposition home or self-care (01) ==
PROVIDERS: PCP Internal Medicine; Visit Provider Neurological Surgery
PROC: (CPT 64721; principal; 2024-03-05 07:30)
DX: G56.21 Lesion of ulnar nerve, right upper limb (principal); I10 Essential (primary) hypertension; J44.9 Chronic obstructive pulmonary disease, unspecified; G40.909 Epilepsy, unspecified, not intractable, without status epilepticus; Z87.891 Personal history of nicotine dependence
CPT/HCPCS: 64718; A4565; A9270; J0690; J2250; J2405; J2704; J3010; J7120

== ENCOUNTER 2024-05-29 15:01 | Outpatient (CLI) | payer OTHER, SELFPAY ==
--- NOTE | ~2024-05-29 | XR_ITS ---
Cervical Spine: AP, lateral, open-mouth views Clinical History: Pain COMPARISON: 10/31/2023 Findings: There is anterior interbody fusion extending from C3 through C6. There is moderate to advan jose degenerative disc narrowing at C6-C7. There is moderate to advanced multilevel facet joint degene rative change. Pre-vertebral soft tissues are unremarkable. Impression: No significant interval change. Stable fusion from C3 through C6. Stable underlying degenerative changes, as above. Reviewed, dictated and finalized at location . LINE LOCOMOTIVE CRANE OPERATOR Impression: No significant interval change. Stable fusion from C3 through C6. Stable underlying degenerative changes, as above.
== END 2024-05-29 15:02 | disposition home or self-care (01) ==
PROVIDERS: PCP Internal Medicine; Visit Provider Neurological Surgery
DX: M48.02 Spinal stenosis, cervical region (principal); M50.30 Other cervical disc degeneration, unspecified cervical region
CPT/HCPCS: 72040

== ENCOUNTER 2024-09-02 09:23 | Emergency (ER) | payer OTHER, SELFPAY ==
[2024-09-02 09:26] VITALS: BP 112/68; PULSE 100; RESP 18; TEMP 35.9; O2SAT 100
--- OUTSIDE RECORDS SUMMARY | 2024-09-02 10:12 | XMS_ITS | Encounter Summary ---
Author Organization [facility] Address [address] [place] [address] Care Team Providers Care Edger Operator Name Role Phone Eulalia Lema DO Primary Care Provider + [phone] Eulalia Lema DO Primary Care Provider + [phone] Eulalia Lema DO Primary Care Provider [phone] Dayna Maki MD Primary Care Provider Dayna Maki MD Primary Care Provider Mj Lee MD Primary Care Provider [phone] Dayna Maki MD Unavailable Eulalia Lema DO Unavailable [phone] Dayna Maki MD Primary Care Provider Reason for Visit * Reason Onset Date Comments MEDICATION REFILL 02/14/2018 refill request Encounter Details Date Type Department Care Team (Late st Contact Info) Description 02/14/2018 Refill [facility] General Internal Medicine [address] [facility] [address] [place] [address] Eulalia Lema DO [address] [facility] [address] MEDICATION REFILL (refill request ) Social History Tobacco Use Types Packs/Day Years Used Date Smoking Tobacco: Every Day Cigarettes 1 37 Smokeless Tobacco: Never Alcohol Use Standard Drinks/Week Comments No 0 (1 standard drink = 0.6 oz pur e alcohol) Sex and Gender Information Value Date Recorded Sex Assigned at Not on file Gender Identity Not on file Sexual Orientation Not on file documented as of this encounter Miscellaneous Notes * Telephone Encounter - Eulalia Slater DO - 02/15/2018 3:44 PM CDT Refused refill as we discontinued this medication. Discussed this with the patient. * Telephone Encounter - Arlene Oliver - 02/14/2018 11:45 AM CDT Patient requesting refills for the following (HCTZ 25 mg capsule ) medications. GAMALIEL:02-13-18 NOV: not scheduled Problem List Identified: office visit on 02-13-18 Medication attached per refill protocol/guidlines for further review by provider yes PCP / Resident PCP verified yes Allergies Reviewed yes Pharmacy Reviewed yes Medication details entered yes Office visit within the last six months yes if not within last 6 months route to [facility]-scheduling as well. Office visit greater than 12 months no routed to [facility] scheduling ONLY no. documented in this encounter Plan of Treatment Not on file documented as of this encounter Visit Diagnoses Not on filedocumented in this encounter Additional Health Concerns Infection Onset Date Last Indicated Resolved Time COVID-19 Under Investigation 12/22/2020 12/22/2020 12/22/2020 7:58 PM CDT documented as of this encounter Care Teams Edger Operator Relationship Specialty Start Date End Date Eulalia Lema DO PCP - General 02/14/18 02/14/18 Eulalia Lema DO PCP - General 02/15/18 02/17/18 Eulalia Lema DO PCP - General 02/18/18 03/20/18 Dayna Maki MD PCP - General 03/21/18 12/21/20 Dayna Maki MD PCP - General Internal Medicine 12/22/20 12/22/20 Mj Lee MD [address] [place] [id number] PCP - General Internal Medicine 12/23/20 12/23/20 Dayna Maki MD [address] [place] [id number] PCP - General 12/24/20 Dayna Maki MD 12/22/20 Eulalia Lema DO Resident - PCP Internal Medicine 02/15/18 documented as of this encounter
--- OUTSIDE RECORDS SUMMARY | 2024-09-02 10:12 | XMS_ITS | Encounter Summary ---
Author Organization [facility] Address [facility] [facility] [place] [address] Care Team Providers Care Day Camp Counselor Name Role Phone Eulalia Lema DO Primary Care Provider [phone] Dayna Maki MD Primary Care Provider Dayna Maki MD Primary Care Provider Mj Lee MD Primary Care Provider [phone] Dayna Maki MD Unavailable [phone] Eulalia Lema DO Unavailable Dayna Maki MD Primary Care Provider Reason for Visit * Reason Onset Date Comments General 02/28/2018 Results 02/28/2018 Patient requeste d lab results and refill on her HCTZ Appointment 02/28/2018 Encounter Details Date Type Department Care Team (Late st Contact Info) Description 02/28/2018 Telephone [facility] [address] [facility] [address] [place] [address] Eulalia Lema DO [address] [facility] [place] [address] General; Results (Patient requested lab results and refill on her HCTZ); Appointment Social History Tobacco Use Types Packs/Day Years [...] encounter Miscellaneous Notes * Telephone Encounter - Celsa Garcia - 03/04/2018 1:02 PM CDT 1st Attempt Called the patient nd she hung up the phone after yelling at me. * Telephone Encounter - Dayna Maki MD - 03/01/2018 2:57 PM CDT Patient needs to be seen in clinic by Dr. Slater. Patient has been seen once in Primary Care clinic, left before visit was complete. Was then seen once in [facility] for dark stools. Patient has contacted clinic multiple times. Unclear why she canceled her 03/20 appointment. Will not refill HCTZ at this time. If patient is having significant swelling, would not anticipate as side effect of stopping HCTZ. Should be evaluated in [facility]. Dayna Maki MD * Telephone Encounter - Sylvie Marcano RN - 03/01/2018 9:29 AM CDT Telephone call from patient. Patient stated that she had called in yesterday requesting the resultsof her lab work and also to get a refill on her HCTZ. Patient stated that today her legs, ankle, feet, toes and hands and fingers are completely swollen and her fingers are very difficult to move. Patient stated that she has never been on Lisinopril and does not understand why she was started on this medication instead of her HCTZ. Patient stated that she still wants to have the results of her lab work and her refill on her HCTZ.She has stopped taking the Lisinopril because she feels that it is causing the swelling. Patient does not want to come in for an acute care appointment. Will forward to provider to address lab results and will forward request for HCTZ refill in refill encounter. * Telephone Encounter - Orly Sharma - 02/28/2018 2:05 PM CDT Pt states that ever since she started taking the Lisinopril she has noted bilateral leg, ankle, feet and toes are swollen. Please call tomorrow morning to discuss her labs which were drawn on 02/22/18 and her concerns about her Lisinopril Pt refused an acute care appt to address her bilateral lower extremity swelling documented in this encounter Plan of Treatment Not on file documented as of this encounter Visit Diagnoses Not on filedocumented in this encounter Additional Health Concerns Infection Onset Date Last Indicated Resolved Time COVID-19 Under Investigation 12/22/2020 12/22/2020 12/22/2020 7:58 PM CDT documented as of this encounter Care Teams Day Camp Counselor Relationship Specialty Start Date End Date Eulalia Lema DO PCP - General 02/18/18 03/20/18 Dayna Maki MD PCP - General 03/21/18 12/21/20 Dayna Maki MD PCP - General Internal Medicine 12/22/20 12/22/20 Mj Lee MD [address] [place] [address] [place] [address] PCP - General Internal Medicine 12/23/20 12/23/20 Dayna Maki MD [address] [place] [address] [place] [address] PCP - General 12/24/20 Dayna Maki MD 12/22/20 Eulalia Lema DO Resident - PCP Internal Medicine 02/15/18 documented as of this encounter
--- OUTSIDE RECORDS SUMMARY | 2024-09-02 10:12 | XMS_ITS | Clinical Summary ---
Author Organization [facility] Address [address] [place] [address] Care Team Providers Care Educational Coordinator Name Role Phone Unavailable Primary Care Provider Unavailabl e Social History Tobacco Use Types Packs/Day Years Used Date Smoking Tobacco: Never Assessed Comments Unknown Sex and Gender Information Value Date Recorded Sex Assigned at Not on file Legal Sex Female 7:55 PM CDT Gender Identity Not on file Sexual Orientation Not on file Last Filed Vital Signs Vital Sign Reading Time Taken Comments Blood Pressure 106/76 10/26/2016 9:17 AM CDT Pulse 68 10/26/2016 9:17 AM CDT Temperature - - Respiratory Rate - - Oxygen Saturation - - Inhaled Oxygen Concentration - - Weight 90 kg (198 lb 6.1 oz) 09/13/2016 9:17 AM SWEAT BAND SEPARATOR Height 162.6 cm (5' 4 ) 09/13/2016 9:17 AM SWEAT BAND SEPARATOR Body Mass Index 34.05 09/13/2016 9:17 AM SWEAT BAND SEPARATOR Plan of Treatment Health Maintenance Due Date Last Done Comments Cervical Cancer Screening Pa p Smear (Age 30 to 64) Every 3 Years 1965 Colorectal Cancer Screening Colonoscopy (10 Years) 1965 Annual Physical 1966 Hepatitis C 1981 DTaP, Tdap and Td Vaccines ( 1 - Tdap) 1982 Cervical Cancer Screening Pa p with HPV Testing (Age 30 to 64) Every 5 Years 1993 Cervical Cancer Screening with HPV 1993 Mammogram Screening 2003 Zoster Vaccines (1 of 2) 2013 COVID-19 Vaccine ( - 2023-2 5 season) 2024 Influenza Adult (#1) 2024 RSV Immunization or 60+ Years (1 - 1-dose 75+ series) 2038 Meningococcal B Vaccine Aged Out No l onger eligible based on patient's age to complete this topic Meningococcal Vaccine Aged Out No elmo ciara eligible based on patient's age to complete this topic Pneumococcal Vaccine: Pediat rics (0 to 5 Years) and At-Risk Patients (6 to 64 Years) Aged Out No longer eligible b ased on patient's age to complete this topic RSV Immunizations Under 20 Months Aged Out No longer eligible based on patient's age to complete this topic Advance Directives Documents on File Type Date Recorded Patient Capsule Maker Expl anation Advance Directives and Sofi mcgowan Will 12/15/2015 POWER OF EXHAUST EQUIPMENT OPERATOR
--- OUTSIDE RECORDS SUMMARY | 2024-09-02 10:13 | XMS_ITS | Encounter Summary ---
Author Organization [facility] Address [facility] [facility] [address] Care Team Providers Care Beverage Server Name Role Phone Eulalia Lema DO Primary Care Provider [phone] Dayna Maki MD Primary Care Provider Dayna Maki MD Primary Care Provider jM Lee MD Primary Care Provider [phone] Dayna Maki MD Unavailable Eulalia Lema DO Unavailable [phone] Dayna Maki MD Primary Care Provider Reason for Visit * Reason Onset Date Comments Medication Issue 03/11/2018 Follow-up 03/14/2018 1st attempt to r each patient to relay message from Encounter Details Date Type Department Care Team (Late st Contact Info) Description 03/11/2018 Telephone [facility] General Internal Medicine [address] [facility] [address] [place] [address] Eulalia Lema DO [address] [facility] [place] [address] Medication Issue; Follow-up (1st attempt to reach patient to relay message from ) Social History Tobacco Use Types Packs/Day [...] encounter Miscellaneous Notes * Telephone Encounter - Sylvie Marcano RN - 03/14/2018 3:50 PM CDT 1st attempt: to reach patient to relay message from MD. This nurse explained message to patient that the MD who responded to message did not want her to start the HCTZ again at this time and that sheis just to take the Lisinopril. This nurse advised patient that the provider would go over the medications with her at her next appointment. Patient stated that she understood the directions but thisnurse is not sure that she does. When nurse tried to ensure that patient understood the message, patient became angry and disconnected the call. * Telephone Encounter - Sylvie Marcano RN - 03/14/2018 3:[address] PM CDT Message from Dr. Staples: Pt should not start taking hctz at this time. She should continue taking the lisinopril. Dr. Gil will re-evaluate her anti-HTN medication needs at next visit. * Telephone Encounter - Sylvie Marcano RN - 03/11/2018 8:[address] White called patient on Sunday and stated that she has reviewed the lab work and there is nothing wrong with the patient and she does not needed to be seen in Rheumatology. Patient stated that she also has questions about some of her medications. Patient stated that she does not understand why she started on the Lisinopril and taken off of her HCTZ. This nurse explainedto patient that is because of her kidney disease and Lisinopril protects the kidney function. Patient is requesting if she should have a water pill back because she is not urinating very frequently but she is drinking a far amount. documented in this encounter Plan of Treatment Not on file documented as of this encounter Visit Diagnoses Not on filedocumented in this encounter Additional Health Concerns Infection Onset Date Last Indicated Resolved Time COVID-19 Under Investigation 12/22/2020 12/22/2020 12/22/2020 7:58 PM CDT documented as of this encounter Care Teams Beverage Server Relationship Specialty Start Date End Date Eulalia Lema DO PCP - General 02/18/18 03/20/18 Dayna Maki MD PCP - General 03/21/18 12/21/20 Dayna Maki MD PCP - General Internal Medicine 12/22/20 12/22/20 Mj Lee MD [address] [place] [id number] PCP - General Internal Medicine 12/23/20 12/23/20 Dayna Maki MD [address] [place] [id number] PCP - General 12/24/20 Dayna Maki MD 12/22/20 Eulalia Lema DO Resident - PCP Internal Medicine 02/15/18 documented as of this encounter
--- OUTSIDE RECORDS SUMMARY | 2024-09-02 10:13 | XMS_ITS ---
Care Plan - [facility] Created on: September 02, 2024 UZMA SOSA : 1965 Sex: Female Author Organization [facility] Address [address] [place] [address] Phone Care Team Providers Care Expanding Machine Operator Name Role Phone JOSE HOLLINGSWORTH Unavailable [phone] SAMSON JANG MD Unavailable [phone]
--- OUTSIDE RECORDS SUMMARY | 2024-09-02 10:13 | XMS_ITS | CONTINUITY OF CARE DOCUMENT ---
Author Name aidan, moniqueinez Address Unknown Organization [facility] Address [address] [place] [address] Phone [phone] Care Team Providers Care Line Out Worker Name Role Phone Fausto Stinson MD Unavailable [phone] SAMSON JANG MD Unavailable SAMSON JANG MD Unavailable PROBLEMS Condition Status Date Provider Notes Easy bruising active Antolin Brink MD Neuropathy active Antolin Brink MD Arthritis active Antolin Brink MD Bipolar affective psychosis active Antolin alford MD Autoimmune disease, not else where classified active Antolin Brink MD Chest pain (unspecified) completed - Chivo Gomes MD COPD active Cedrick Plurad Tobacco abuse active Cedrick Plurad Leg pain, bilateral active Cedrick Plurad Abnormal electrocardiogram active Chivo weber MD Chest pain - precordial active Chivo Shearer ra, MD PVD - unspecified active Chivo Gomes MD Preop cardiovasc. examination active Chivo Gomes MD Angina - unspecified active Chivo Gomes MD PAD - RLE with ulcer active Chivo Gomes MD PAD - BLE with claudication active Chivo sutton MD PAD - BLE with rest pain active Chivo perera MD HTN essential active Fausto Stinson MD Hypercholesterolemia active Fausto hernandez MD Dizziness active Fausto Stinson MD ENCOUNTERS Date Type Provider Location Encounter Diag nosis 8 - 4 In-person encounter Office Visit Fausto Stinosn [facility] 0 - 8 In-person encounter Office Visit Fausto Stinson MD [facility] 1 - 1 In-person encounter Office Visit Fausto Stinson MD [facility] Dizziness 5 - 8 In-person encounter Office Visit Fausto Stinson MD [facility] 5 - 6 In-person encounter Office Visit Fausto Stinson MD [facility] 8 - 2 In-person encounter Office Visit Fausto Stinson MD [facility] 5 - 7 In-person encounter Office Visit Fausto Stinson MD [facility] HTN essentialHypercholesterolemia 6 - 9 In-person encounter Office Visit Fausto Stinson MD [facility] 9 - 8 In-person encounter Office Visit Fausto Stinson MD [facility] PAD - RLE with ulcerPAD - BLE with claudicationPAD - BLE with rest pain 4 - 4 In-person encounter Office Visit Chivo Gomes MD [facility] Chest pain (unspecified)Abnormal electrocardiogramChest pain - precordialPVD - unspecifiedPreop cardiovasc. examinationAngina - unspecified 3 - 3 In-person encounter Office Visit Chivo Gomes MD [facility] COPDTobacco abuseLeg pain, bilateral 9 - 2 In-person encounter Office Visit Antolin Brink MD [facility] Autoimmune disease, not elsewhere classified 7 - 1 In-person encounter Office Visit Antolin Brink MD [facility] Easy bruisingNeuropathyArthritisBipolar affective psychosis VITAL SIGNS Date Observation Value Provider Body Mass Index (Ratio) 30.21 kg/m2 Rosie Stinson MD blood pressure, diastolic 84 mm[Hg] Li nkLogic blood pressure, systolic 128 mm[Hg] Joana kLogic blood pressure, diastolic 84 mm[Hg] Li nkLogic blood pressure, systolic 128 mm[Hg] Joana kLogic blood pressure, diastolic 84 mm[Hg] Ca therine Sebastián blood pressure, systolic 128 mm[Hg] Cat herine [place] pulse rate 99 /min Alena Sebastián oxygen saturation, oximetry 96 % Alena Sebastián respiratory rate E&M 14 /min Catheri ne Sum[place] weight E&M 176 [lb_av] Alena Sebastián blood pressure, cuff size regular Ca therine [place] height E&M 64 [in_i] Alena Sebastián Body Mass Index (Ratio) 31.07 kg/m2 Rosie Stinson MD blood pressure, diastolic 86 mm[Hg] Li nkLogic blood pressure, systolic 129 mm[Hg] Joana Canogic oxygen saturation, oximetry 97 % Scott Shi respiratory rate E&M 16 /min Abad Shi pulse rate 81 /min Jenniferyumihector scott blood pressure, cuff size regular Hannah Shi blood pressure, diastolic 86 mm[Hg] Hannah Shi blood pressure, systolic 129 mm[Hg] Jennifer Shi weight E&M 181 [lb_av] Scott scott height E&M 64 [in_i] Scott scott Body Mass Index (Ratio) 30.89 kg/m2 Derek henao Haines blood pressure, diastolic 68 mm[Hg] Li nkLogic blood pressure, systolic 107 mm[Hg] Joana kLogic blood pressure, diastolic 68 mm[Hg] Sa ra Greene blood pressure, systolic 107 mm[Hg] Nataly a Greene oxygen saturation, oximetry 93 % Leti Greene respiratory rate E&M 16 /min Leti Si ms pulse rate 92 /min Leti Greene blood pressure, cuff size regular Sa ra Greene weight E&M 180 [lb_av] Leti Greene height E&M 64 [in_i] Leti Greene pulse rate 96 /min Rema Ruiz oxygen saturation, oximetry 97 % Rema Ruiz blood pressure, cuff size regular Tr imelda Ruiz blood pressure, diastolic 76 mm[Hg] Tr imelda Ruiz blood pressure, systolic 120 mm[Hg] Try radha Ruiz respiratory rate E&M 18 /min Rema Ruiz height E&M 64 [in_i] Rema Ruiz Body Mass Index (Ratio) 29.01 kg/m2 Rosie Stinson MD blood pressure, cuff size regular Ke rri Carlos Enriqueuenenfmaxine blood pressure, diastolic 80 mm[Hg] Ke rri Gruenenfeldalex blood pressure, systolic 140 mm[Hg] Ria Rojo oxygen saturation, oximetry 98 % Negra Rojo respiratory rate E&M 16 /min Negra henson pulse rate 77 /min Negra howell weight E&M 169 [lb_av] Negra howell height E&M 64 [in_i] Negra Tennille er Body Mass Index (Ratio) 29.35 kg/m2 Rosie Stinson MD blood pressure, cuff size regular Chad Patricio RN blood pressure, diastolic 100 mm[Hg] Chad Patricio RN blood pressure, systolic 160 mm[Hg] Pelon Patricio RN oxygen saturation, oximetry 99 % Pelon Patricio RN respiratory rate E&M 20 /min Pelon Alexander [facility] RN pulse rate 101 /min Pelon Patricio RN weight E&M 171 [lb_av] Pelon Patricio RN Body Mass Index (Ratio) 26.95 kg/m2 Eran Vazquez oxygen saturation, oximetry 95 % Bess Melendez respiratory rate E&M 18 /min Chiquis Melendez pulse rate 84 /min Bess Gutierrez edilbertoroger weight E&M 157 [lb_av] Bess Gutierrez nson height E&M 64 [in_i] Bess Gutierrez denisha Body Mass Index (Ratio) 26.77 kg/m2 Rosie Stinson MD blood pressure, diastolic 81 mm[Hg] Cr olivier Gregorio blood pressure, systolic 130 mm[Hg] Edward Gregorio oxygen saturation, oximetry 98 % Cher Gregorio respiratory rate E&M 17 /min Cher Gregorio pulse rate 88 /min Cher mohamud weight E&M 156 [lb_av] Cher Corral s height E&M 64 [in_i] Cher Corral s Body Mass Index (Ratio) 26.77 kg/m2 Sindy Gomes MD blood pressure, cuff size small Cy darlin Garvey blood pressure, diastolic 98 mm[Hg] Cy darlin Garvey blood pressure, systolic 152 mm[Hg] Shanti nereida Garvey oxygen saturation, oximetry 98 % Kareen Garvey respiratory rate E&M 16 /min Kareen Garvey pulse rate 99 /min Kareen rincon weight E&M 156 [lb_av] Kareen rincon height E&M 64 [in_i] Kareen rincon Body Mass Index (Ratio) 26.60 kg/m2 Sindy Gomes MD blood pressure, cuff size small Cy darlin Garvey blood pressure, diastolic 80 mm[Hg] Cy darlin Garvey blood pressure, systolic 130 mm[Hg] Shanti Garvey oxygen saturation, oximetry 98 % Kareen Garvey respiratory rate E&M 16 /min Kareen Garvey pulse rate 94 /min Kareen rincon weight E&M 155 [lb_av] Kareen rincon height E&M 64 [in_i] Kareen rincon Body Mass Index (Ratio) 34.74 kg/m2 Dmitry Brink MD blood pressure, diastolic 81 mm[Hg] Miguel Melendez blood pressure, systolic 124 mm[Hg] Michell Melendez oxygen saturation, oximetry 98 % Bess Melendez respiratory rate E&M 16 /min Chiquis Melendez pulse rate 100 /min Bess denny weight E&M 202.4 [lb_av] Bess johnstonon height E&M 64 [in_i] Bess denny blood pressure, diastolic 85 mm[Hg] Me frankel Rajesh blood pressure, systolic 128 mm[Hg] Claritza hugginsmary Mena pulse rate 100 /min Yumiko Mena oxygen saturation, oximetry 97 % Yumiko Mena respiratory rate E&M 16 /min Yumiko Mena Body Mass Index (Ratio) 35.53 kg/m2 Nelly Mena weight E&M 207 [lb_av] Yumiko Mena height E&M 64 [in_i] Yumiko Mena ALLERGIES Allergy Name Onset Date Reaction Criticality Status EFFEXOR High Criticality active SHELLFISH High Criticality active IVP DYE High Criticality active ASA High Criticality active RESULTS Date Observation Value Provider Reference Range Interpretation Location prothrombin time (patient) 9.7 s [facility] 9.1-12.0 international normalized ratio (INR) 0.9 [facility] 0.8-1.2 5 lipoprotein, beta, serum, point, quantitative, calculated 118 mg/dL [facility] 0-99 High very low density lipoproteins 51 mg/dL [facility] 5-40 High 5 HDL cholesterol, serum 66 mg/dL [facility] >39 5 triglyceride, serum, random 255 mg/dL [facility] 0-149 High 5 cholesterol, serum 235 mg/dL [facility] 100-199 High calcium, serum 9.1 mg/dL [facility] 8.7-10.2 5 carbon dioxide, venous blood 26 mmol/L [facility] 20-29 5 chloride, serum 99 mmol/L [facility] 96-106 5 potassium, serum 4.0 mmol/L [facility] 3.5-5.2 5 sodium, serum 142 mmol/L [facility] 950-089 2330/03/0 5 urea nitrogen/creatinin e ratio, serum 21 [facility] 9-23 5 eGFR if 88 mL/min/{1.7 3_m2} [facility] >59 5 eGFR if not 76 mL/min/{1.7 3_m2} [facility] >59 5 creatinine, serum 0.86 mg/dL [facility] 0.57-1.00 5 urea nitrogen, blood 18 mg/dL [facility] 6-24 5 blood glucose, random 99 mg/dL [facility] 65-99 5 basophil count, absolute 0.1 x10E3/uL [facility] 0.0-0.2 5 Eosinophil Absolute Count 0.2 X10E3/UL [facility] 0.0-0.4 5 monocyte count, blood, automated 0.5 X10E3/UL [facility] 0.1-0.9 5 lymphocyte count, blood, automated 1.8 X10E3/UL [facility] 0.7-3.1 5 Absolute Neutrophils 4.5 X10E3/UL [facility] 1.4-7.0 5 basophils as percent of blood leukocytes 2 % [facility] Not Estab. 5 eosinophils as percent of blood leukocytes 3 % [facility] Not Estab. 5 monocytes as percent of blood leukocytes 7 % [facility] Not Estab. 5 lymphocytes as percent of blood leukocytes 26 % [facility] Not Estab. 5 neutrophils as percent of blood leukocytes 62 % [facility] Not Estab. 5 platelet count 405 X10E3/UL [facility] 150-379 High 5 red blood cell distribution width 15.0 % [facility] 12.3-15.4 5 mean corpuscular hemoglobin concentration, RBC 32.0 G/DL [facility] 31.5-35.7 5 mean corpuscular hemoglobin, RBC 28.3 pg [facility] 26.6-33.0 5 mean corpuscular volume, RBC 89 fL [facility] 79-97 5 hematocrit, blood 40.0 % [facility] 34.0-46.6 5 hemoglobin, blood 12.8 g/dL [facility] 11.1-15.9 5 erythrocyte (RBC) count 4.52 X10E6/UL [facility] 3.77-5.28 5 leukocyte count, blood 7.2 X10E3/UL [facility] 3.4-10.8 0 activated partial thromboplastin time 27.0 SECONDS [facility] 23.0 - 33.0 8 red blood cell distribution width, size density 52.5 fL [facility] immature granulocytes, percentage of total cells, blood 0.5 % [facility] - 8 nucleated red blood cells as percent of blood leukocytes 0.0 % [facility] red blood cell (erythrocyte) count, per high power field 0.0 10*3/UL [facility] - 8 eosinophils as percent of blood leukocytes 1.0 % [facility] - 8 neutrophils as percent of blood leukocytes 73.0 % [facility] Absolute Neutrophils 7.2 CELLS/UL [facility] 1.5 - 7.8 8 basophils as percent of blood leukocytes 0.8 % [facility] - 8 Absolute Basophils 0.1 CELLS/UL [facility] 0.0 - 0.2 8 monocytes as percent of blood leukocytes 5.6 % [facility] - 8 Absolute Monocytes 0.6 CELLS/UL [facility] 0.2 - 1.0 8 lymphocytes as percent of blood leukocytes 19.1 % [facility] Absolute Lymphocytes 1.9 CELLS/UL [facility] 0.9 - 3.9 8 mean platelet volume 10.6 (?) LinkLog - 8 platelet count 326.0 THOUSAND/UL [facility] 100.0 - 400.0 8 mean corpuscular hemoglobin concentration, RBC 31.9 G/DL [facility] 31.0 - 38.0 8 mean corpuscular hemoglobin, RBC 29.5 pg [facility] 25.0 - 35.0 8 mean corpuscular volume, RBC 92.3 fL [facility] 75.0 - 100.0 8 hematocrit, blood 43.2 % [facility] 35.0 - 55.0 2016/10/2 8 hemoglobin, blood 13.8 g/dL [facility] 11.5 - 16.5 8 erythrocyte count, whole blood 4.7 MILLION/UL [facility] 3.5 - 5.5 HISTORY OF MEDICATION USE Medication Status Instructions Dates Provider Indications Com ments Nitro-Bid 2% ointment active 11/09 Leti Alejo albuterol sulfate 2.5 mg/3 mL (0.083 %) solution for nebulization completed Inhale 1 vial using nebulizer twice a day 08/12 - 08/12 Fausto Stinson MD nitroglycerin 0.4 mg tablet, sublingual completed DISSOLVE 1 TABLET UNDER THE TONGUE EVERY 5 MINUTES NEEDED FOR CHEST PAIN. UP TO 3 TOTAL DOSES, AFTER 3RD DOSE AND NO RELIEF GO TO ER 07/30 - 11/09 Fausto Stinson MD METHOCARBAMOL 500 MG TABS active Take 1 three times a day 11/03 Negra Rojo #90, 30 days supply, Prescribed by SAMSON JANG, Filled 11/03/2020 levetiracetam 500 mg tablet active Take 1 twice a day 11/04 Negra Rojo #60, 30 days supply, Prescribed by SAMSON JANG, Filled 11/04/2020 pregabalin 75 mg capsule active Take 1 twice a day 11/08 Negra Rojo #60, 30 days supply, Prescribed by SAMSON JANG, Filled 11/08/2020 dicyclomine 20 mg tablet active Take 1 three times a day 11/08 Negra Rojo #90, 30 days supply, Prescribed by SAMSON JANG, Filled 11/08/2020 acetaminophen 500 mg tablet active 2 twice a day 11/08 Negra Rojo #120, 30 days supply, Prescribed by SAMSON JANG, Filled 11/08/2020 fluticasone propionate 50 mcg/actuation spray,suspension active as needed 11/09 Negra Rojo #16, 60 days supply, Prescribed by SAMSON JANG, Filled 11/09/2020 cetirizine 10 mg tablet active once a day 11/09 Negra Grraser #30, 30 days supply, Prescribed by SAMSON JANG, Filled 11/09/2020 Ventolin HFA 90 mcg/actuation HFA aerosol inhaler completed as directed 11/10 - 08/12 Negra Shukrier #18, 25 days supply, Prescribed by SAMSON JANG, Filled 11/10/2020 rosuvastatin 5 mg tablet active once a day 11/11 Negra Watter #30, 30 days supply, Prescribed by SAMSON JANG, Filled 11/11/2020 thiothixene 10 mg capsule active 1 every night 11/16 Negra Watter #30, 30 days supply, Prescribed by TEMO JOYA, Filled 11/16/2020 Siltussin-DM 10-100 mg/5 mL syrup active as directed 11/22 Negra Watter #237, 4 days supply, Prescribed by SAMSON JANG, Filled 11/22/2020 nicotine (polacrilex) 4 mg lozenge active Take as directed 11/23 Negra Watter #72, 12 days supply, Prescribed by SAMSON JANG, Filled 11/23/2020 nicotine (polacrilex) 4 mg gum active as directed 11/23 Negra Watter #110, 18 days supply, Prescribed by SAMSON JANG, Filled 11/23/2020 thiothixene 5 mg capsule active 2 every night 11/02 Negra Watter #30, 30 days supply, Prescribed by TEMO JOYA, Filled 11/02/2020 Caplyta 42 mg capsule active Take 42 mg by mouth once a day Negra Rojo Imported from [employer]: [employer] ( at 08:43:20 AM) duloxetine 60 mg capsule,delayed release(DR/EC) active Take 60 mg by mouth once a day Negra Rojo Imported from [employer]: [employer] ( at 08:43:20 AM) candesartan 8 mg tablet completed Take 1 tablet by mouth once a day - 08/22 Pelon Patricio RN Imported from [employer]: [employer] ( at 08:43:20 AM) acetaminophen 500 mg tablet active Take 1000 mg by mouth every six hours as needed Negra Rojo Imported from [employer]: [employer] ( at 08:43:20 AM) trazodone 100 mg tablet active Take 100 mg by mouth every night Negra Rojo Imported from [employer]: [employer] ( at 08:43:20 AM) Crestor 10 mg tablet active 1 tablet once a day 08/06 Fausto Stinson MD hydrochlorothiazid e 12.5 mg tablet completed TAKE 1 TABLET BY MOUTH EVERY DAY 08/06 - 08/07 Fausto Stinson MD CYCLOBENZAPRINE HCL 10 MG ORAL TABLET completed one tab thre times daily 08/06 - 07/23 Negra Rojo ZYPREXA 10 MG ORAL TABLET completed one tab daily 08/06 - 07/23 Negra Rojo LISINOPRIL 10 MG ORAL TABLET completed ONE TAB. TWICE DAILY 08/06 - 07/23 Negra Rojo NITROGLYCER 0.4MG/HR DIS completed APPLY ONE PATCH DAILY TO THE GREATEST ISCHEMIC AREA ON FOOT. REMOVE OLD 07/26 - 07/23 Negra Rojo LIPITOR 40 MG ORAL TABLET completed ONE TAB. DAILY 03/28 - 08/06 Pelon Patricio RN NITRO-BID 2 % TRANSDERMAL OINTMENT completed 1 inch applied and rubbed into foot twice daily 03/28 - 07/23 Negra Rojo NORVASC 2.5 MG ORAL TABLET completed ONE TAB. DAILY 03/28 - 08/06 Pelon Patricio RN CILOSTAZOL 50 MG ORAL TABLET completed hold 03/28 - 07/23 Negra Rojo PLAVIX 75 MG ORAL TABLET completed ONE TAB. DAILY 03/28 - 07/23 Negra Rojo TOPIRAMATE 50 MG ORAL TABLET completed 1 tab twice daily - 07/23 Negra Rojo NAVAINE 10 MG completed 1 tab once daily - 08/06 Pelon Patricio RN AMLODIPINE BESYLATE 10 MG ORAL TABLET completed ONE TAB. DAILY - 07/23 Negra Rojo TRAZODONE HCL 100 MG ORAL TABLET completed take one tablet by mouth once daily - 08/06 Pelon Patricio RN NAPROXEN 500 MG ORAL TABLET completed take one tablet by mouth twice daily - 07/23 Negra Rojo ATORVASTATIN CALCIUM 40 MG ORAL TABLET completed 1 tablet daily at bedtime 09/26 - 07/23 Cher Gregorio FENOFIBRATE 160 MG ORAL TABLET completed ONE TAB. DAILY 09/24 - 07/23 Cher Gregorio PREDNISONE 50 MG ORAL TABLET completed One tab by mouth at 5pm and at 9pm the day before procedure and one tab morning of procedure 09/13 - 07/23 Cher Gregorio FAMOTIDINE 20 MG ORAL TABLET completed One tablet by mouth at bedtime the night before procedure and one tab morning of procedure 09/13 - 07/23 Cher Gregorio DIPHENHYDRAMINE HCL 25 MG ORAL TABLET completed 2 tabs by mouth the morning of the procedure 09/13 - 07/23 Cher Gregorio AMLODIPINE BESYLATE 5 MG ORAL TABLET completed take one tablet once daily 08/26 - 07/23 Cher Gregorio RANEXA 500 MG ORAL TABLET EXTENDED RELEASE 12 HOUR completed one po bid 08/05 - 07/23 Cher Gregorio DILT-XR 180 MG ORAL CAPSULE EXTENDED RELEASE 24 HOUR completed one po daily 08/05 - 08/26 Savita Nails RN ABILIFY TABLET completed Take 1 tablet at bedtime 08/05 - 07/23 Cher Gregorio AMBIEN TABLET completed Take 1 tablet at bedtime 08/05 - 07/23 Negra Rojo SENNA PLUS 8.6-50 MG ORAL TABLET completed Take 2 at bedtime daily 08/25 - 07/23 Negra Rojo TEMAZEPAM 7.5 MG ORAL CAPSULE completed Take 1 at bedtime daily 08/25 - 07/23 Cher Gregorio HYDROXYZINE HCL 50 MG ORAL TABLET completed TAke 4 times daily 08/25 - 07/23 Cher Gregorio HYDROCHLOROTHIAZID E 25 MG ORAL TABLET completed ONE TAB DAILY - 08/25 Kareen Garvey KLOR-CON M20 20 MEQ ORAL TABLET EXTENDED RELEASE completed once daily - 08/25 Kareen Garvey BENZTROPINE MESYLATE 0.5 MG ORAL TABLET completed twice daily as needed - 08/25 Kareen Garvey PRAVASTATIN SODIUM 20 MG ORAL TABLET completed once daily - 08/25 Kareen Garvey HYDROCODONE-ACETAM INOPHEN 10-325 MG/15ML ORAL SOLUTION completed every 12 hours as needed - 08/25 Kareen Garvey ALPRAZOLAM 0.5 MG ORAL TABLET completed four times dialy as needed - 08/25 Kareen Garvey FLUNISOLIDE 25 MCG/ACT (0.025%) NASAL SOLUTION completed twice daily - 08/25 Kareen Garevy IPRATROPIUM-ALBUTE ROL 0.5-2.5 (3) MG/3ML INHALATION SOLUTION completed as needed - 08/25 Kareen Garvey TIZANIDINE HCL 4 MG ORAL TABLET completed three times daily as needed - 08/25 Kareen Garvey QVAR 80 MCG/ACT INHALATION AEROSOL SOLUTION completed 2 puffs twice daily - 08/25 Kareen Garvey INVEGA 6 MG ORAL TABLET EXTENDED RELEASE 24 HOUR completed 2 tabs once daily - 08/25 Kareen Garvey GABAPENTIN 100 MG ORAL CAPSULE completed 2 caps three times daily - 08/25 Kareen Garvey CITALOPRAM HYDROBROMIDE 40 MG ORAL TABLET completed once daily - 08/20 Antolin Brink MD VITAMIN D TABLET completed 78719 international units once monthly - 08/25 Kareen Garvey BUPROPION HCL ER (SR) 150 MG ORAL TABLET EXTENDED RELEASE 12 HOUR completed once daily - 08/25 Kareen Garvey HYDROXYZINE PAMOATE 25 MG ORAL CAPSULE completed 2 caps three times daily as needed - 08/25 Kareen Garvey CALCIUM CARBONATE TABLET completed 600mg twice daily - 08/25 Kareen Garvey VENTOLIN HFA 108 (90 BASE) MCG/ACT INHALATION AEROSOL SOLUTION completed 2 puffs every 4-6 hours - 08/25 Kareen Garvey MIRTAZAPINE 15 MG ORAL TABLET completed 1/2 once daily - 08/25 Kareen Garvey SYMBICORT 160-4.5 MCG/ACT INHALATION AEROSOL completed 1 puff twice daily - 08/25 Kareen Garvey SOCIAL HISTORY Date Observation Value Provider smoking/tobacco cess ation, patient education and counseling yes Fausto Stinson MD social history reviewed E&M revi ewed - no changes required Fausto Stinson MD Exercise counseling yes Serena Shi social history E&M Patient tesha mercedes smokes every day. 1PPD x 35 years A lcohol Use - no D rug Use - no; Previous crack cocaine use Smoking History: P atient currently smokes every day. Fausto Stinson MD social history reviewed E&M i ewed - no changes required Fausto Stinson MD smoking history, tot al pack/day 3 Rema Ruiz cigarette use yes Rema mohamud smoking status Current every day smoker T jackson Ruiz social history E&M Patient tesha mercedes smokes every day. 1PPD x 35 years A lcohol Use - no D rug Use - no; Previous crack cocaine use Smoking History: Nataly loving is a former smoker. Fausto Stinson MD smoking status Former smoker Fausto nance MD social history reviewed E&M revi ewed - no changes required Fausto Stinson MD smoking, year quit 2018 Negra Deb manuel smoking, date started 1980 Negra Darrel smoking history, tot al pack/year 38 Negra Darrel smoking history, tot al pack/day 1 Negra Darrel cigarette use yes Negra goodman smoking, year quit 2018 Fausto Stinson MD cigarette use yes Fausto antunez MD smoking status Former smoker Fausto nance MD social history reviewed E&M revi ewed - no changes required Fausto Stinson MD smoking history, tot al pack/year 38 Betty Acevedo smoking history, tot al pack/year 38 Pelon Patricio RN social history E&M Patient tesha mercedes smokes every day. 1PPD x 35 years A lcohol Use - no D rug Use - no; Previous crack cocaine use Smoking History: Nataly loving is a former smoker. Fausto Stinson MD social history reviewed E&M revi ewed - no changes required Fausto Stinson MD smoking, year quit 2018 Bess Melendez smoking, date started 1981 OrlyJacob Razoenson smoking history, tot al pack/year 38 Bess Melendez smoking history, tot al pack/day 1 Bess Melendez cigarette use yes Bess Dung juan alberto smoking status Former smoker Bess Miguel number of grandchildren Fausto Stinson MD social history E&M Patient tesha mercedes smokes every day. 1PPD x 35 years A lcohol Use - no D rug Use - no; Previous crack cocaine use Smoking History: P atient currently smokes every day. Fausto Stinson MD social history reviewed E&M revi ewed - no changes required Fausto Stinson MD cigarette use yes Cher Degroot ms smoking status Current every day smoker C frank Gregorio smoking history, tot al pack/year 38 Idalia Shields RN smoking history, tot al pack/year 38 Idalia Shields RN smoking history, tot al pack/year 38 Savita Nails RN social history reviewed E&M revi ewed - no changes required Chivo Gomes MD alcohol use no Kareen rincon smoking/tobacco cess ation, patient education and counseling yes Kareen Garvey drug use no Kareen Conrado rincon smoking, date started 1980 Hilda Garvey smoking history, tot al pack/day 1 Kareen Garvey cigarette use yes Kareen cooper smoking status Current every day smoker C stanislaw Garvey number of grandchildren Chivo Cruz social history reviewed E&M revi ewed - no changes required Cedrick Cruz social history E&M Patient tesha mercedes smokes every day. 1PPD x 35 years A lcohol Use - no D rug Use - no; Previous crack cocaine use Smoking History: P atient currently smokes every day. P atient has been counseled to quit. Cedrick Cruz alcohol use no Kareen rincon smoking/tobacco cess ation, patient education and counseling yes Kareen Garvey drug use no Kareen rincon smoking, date started 1980 Hilda Garvey smoking history, tot al pack/day 1 Kareen Garvey cigarette use yes Kareen cooper smoking status Current every day smoker Marguerite Garvey social history reviewed E&M revi ewed - no changes required Antolin Brink MD smoking history, tot al pack/day 1 Bess Melendez alcohol use no Bess denny smoking/tobacco cess ation, patient education and counseling yes Bess Melendez drug use no Bess denny smoking, date started 1980 Adryan Melendez cigarette use yes Bess avendano smoking status Current every day smoker Javan Bueno Melendez social history reviewed E&M revi ewed - no changes required Antolin Brink MD drug use no Antolin Sosa alcohol use no Antolin Sosa social history E&M Patient tesha mercedes smokes every day. 1PPD x 35 years A lcohol Use - no D rug Use - no; Previous crack cocaine use Smoking History: P atteressa currently smokes every day. P atient has been counseled to quit. Antolin Brink MD smoking/tobacco cess ation, patient education and counseling yes Yumiko Mena smoking, date started 1980 Kody Mena cigarette use yes Yumiko Mena smoking status Current every day smoker Javan perea Rajesh FUNCTIONAL STATUS Date Observation Value Provider HRA, CV Assess/Plan, Angina (inactive) Management Plan continue current therapy, antianginal therapy Fausto Stinson MD HRA, CV Assess/Plan, Angina (inactive) Management Plan continue current therapy Fausto Stinson MD HRA, CV Assess/Plan, Angina (inactive) Management Plan continue current therapy Fausto Stinson MD HRA, CV Assess/Plan, Angina (inactive) Management Plan continue current therapy Fausto Stinson MD HRA, CV Assess/Plan, Angina (inactive) Management Plan continue current therapy Fausto Stinson MD HRA, CV Assess/Plan, Angina (inactive) Management Plan continue current therapy Fausto Stinson MD HRA, CV Assess/Plan, Angina (inactive) Management Plan antianginal therapy Chivo Gomes MD FAMILY HISTORY Family Member Condition Father Family History of Baldo ng Cancer Father Family History of Co elmo Cancer INSURANCE PROVIDERS Payer name Policy type / Coverage type Mckayla red green party ID [place] MEDICAID (2) Medicaid [id number] ADVANCE DIRECTIVES Name Date DISCUSSED - NO DECISION MADE TREATMENT PLAN Date Name Performer [id number],C, B P today: 129/86 P rior BP: 107/68 (08/12/2021) Labs Reviewed: C reat: 0.86 (09/24/2018) C hol: 235 (09/24/2018) HDL: 66 (09/24/2018) Her updated medication list for this problem includes: Candesartan 8 Mg Tablet (Candesartan) ..... Take 1 tablet by mouth once a day Hydrochlorothiazide 12.5 Mg Tablet (Hydrochlorothiazide) ..... Take 1 tablet by mouth every day Fausto Stinson MD [id number],C,F INDINGS: L t Upper Ext: Triphasic waveforms are seen in the subclavian, brachial and radial. Monophasic waveforms are seen in the ulnar. - C ONCLUSIONS: 1 . Triphasic waveforms are seen in the subclavian, brachial and radial. Monophasic waveforms are seen in the ulnar. 2 . Sitting blood pressures: Right 95/59; Left 94/62. If she ends up having a heart cath done for CP issues will also do angio left upper extremity. C [facility] upper extremities arterial duplex. Had intact flow of her NAV Fausto Stinson MD [id number],C, E cho 08/18/21 C ONCLUSIONS: 1 . Normal left ventricular systolic function. Normal left ventricular size. Normal left ventricular wall thickness. E/E': 14.0. Left v entricular ejection fraction is measured at 65 %. 2 . Normal right ventricular size. Normal right ventricular systolic function. 3 . Normal appearing mitral valve leaflets. There is trace-mild mitral valve regurgitation. Cannot have nuc stress done again apparently had a rxn to one of the meds given at [facility]. I discussed with her regarding cardiac cath. At present, she wouldlike to defer unless she has increased episodes of CP. WIll have her come back in a month so we can review and see if there is any sx that need to be addressed. Fausto Stinson MD [id number],C,M ay be related to low BP will check echo. Fausto Stinson MD [id number],C, H as had some workup done, does not know if she has lupus or not Fausto Stinson MD [id number],C, C heck upper extremities arterial duplex. Had intact flow of her LUE Fausto Stinson MD [id number],C,ANAPHALAXIS T O ASPIRIN Fausto Stinson MD [id number],C, S topped smoking Fausto Stinson MD [id number],C,R educed HCTZ and candisartan B P today: 107/68 P rior BP: 120/76 (05/27/2021) Labs Reviewed: C reat: 0.86 (09/24/2018) C hol: 235 (09/24/2018) HDL: 66 (09/24/2018) Her updated medication list for this problem includes: Hydrochlorothiazide 25 Mg Tablet (Hydrochlorothiazide) ..... 1 tablet once a day Candesartan 16 Mg Tablet (Candesartan) ..... Take 16 mg by mouth once a day Fausto Stinson MD [id number],S,S ays that she needs a nebulizer will see if we can arrange that Fausto Stinson MD [id number],C, H as had some workup done, does not know if she has lupus or not Fausto Stinson MD [id number],C,i ntermittent vague chest pains, will try to get her stress test, does not tolerate adenosine apparently, had issues in jill past Fausto Stinson MD [id number],C, m icrovascular disease. will arrange for her to ave medication. smoking cessation. will f/u in 2 months to see if there is improvement. will check sensilase at that time. okay for pletal since her EF is grossly normal. RLE has severely reduced PVR's and inadequate perfusion for wound healing L LE has mildly reduced PVR's and normal perfusion pressures. & #13;November 24, 2020 N o smoking present. Suspect neurological issues. Says that she used capsasin cream. Currently does not have it. Will ask [facility] send request. May 27, 2021 S mokes 2-3 cigarettes a day Fausto Stinson MD [id number],S, S x have improved since she stopped smoking, derives benefit more so on the R leg where she has been putting her nitro patch. Advised her to split the nitro pack in half and apply to both feet. November 24, 2020 C urrently not using nitro. May 27, 2021 Needs refill on nitor pills Fausto Stinson MD [id number],C,C lelia upper extremities arterial duplex Fausto Stinson MD [id number],C, H er updated medication list for this problem includes: Hydrochlorothiazide 25 Mg Tablet (Hydrochlorothiazide) ..... 1 tablet once a day Candesartan 16 Mg Tablet (Candesartan) ..... Take 16 mg by mouth once a day BP today: 120/76 P rior BP: 140/80 (11/24/2020) Labs Reviewed: C reat: 0.86 (09/24/2018) C hol: 235 (09/24/2018) HDL: 66 (09/24/2018) Fausto Stinson MD Cardiology: B P today: 129/86 P rior BP: 107/68 (08/12/2021) Labs Reviewed: C reat: 0.86 (09/24/2018) C hol: 235 (09/24/2018) HDL: 66 (09/24/2018) Her updated medication list for this problem includes: Candesartan 8 Mg Tablet (Candesartan) ..... Take 1 tablet by mouth once a day Hydrochlorothiazide 12.5 Mg Tablet (Hydrochlorothiazide) ..... Take 1 tablet by mouth every day Fausto Stinson MD Cardiology:FINDINGS: L t Upper Ext: Triphasic waveforms are seen in the subclavian, brachial and radial. Monophasic waveforms are seen in the ulnar. - C ONCLUSIONS: 1 . Triphasic waveforms are seen in the subclavian, brachial and radial. Monophasic waveforms are seen in the ulnar. 2 . Sitting blood pressures: Right 95/59; Left 94/62. If she ends up having a heart cath done for CP issues will also do angio left upper extremity. Marguerite rowell upper extremities arterial duplex. Had intact flow of her BALDOE Fausto Stinson MD Cardiology: Pedro claire 08/18/21 C ONCLUSIONS: 1 . Normal left ventricular systolic function. Normal left ventricular size. Normal left ventricular wall thickness. E/E': 14.0. Left v entricular ejection fraction is measured at 65 %. 2 . Normal right ventricular size. Normal right ventricular systolic function. 3 . Normal appearing mitral valve leaflets. There is trace-mild mitral valve regurgitation. Cannot have nuc stress done again apparently had a rxn to one of the meds given at [facility]. I discussed with her regarding cardiac cath. At present, she wouldlike to defer unless she has increased episodes of CP. WIll have her come back in a month so we can review and see if there is any sx that need to be addressed. Fausto Stinson MD Cardiology:May be related to low BP will check echo. Fausto Stinson MD Cardiology: H as had some workup done, does not know if she has lupus or not Fausto Stinson MD Cardiology: Marguerite rowell upper extremities arterial duplex. Had intact flow of her NAV Stinson MD Cardiology:ANAPHALAXIS TO ASPIRI N Fausto Stinson MD Cardiology: S topped smoking Fausto Stinson MD Cardiology:Reduced H CTZ and candisartan B P today: 107/68 P rior BP: 120/76 (05/27/2021) Labs Reviewed: C reat: 0.86 (09/24/2018) C hol: 235 (09/24/2018) HDL: 66 (09/24/2018) H er updated medication list for this problem includes: Hydrochlorothiazide 25 Mg Tablet (Hydrochlorothiazide) ..... 1 tablet once a day Candesartan 16 Mg Tablet (Candesartan) ..... Take 16 mg by mouth once a day Fausto Stinson MD Cardiology:Says that she needs a nebulizer will see if we can arrange that Fausto Stinson MD Cardiology: H as had some workup done, does not know if she has lupus or not Fausto Stinson MD Cardiology:intermitt ent vague chest pains, will try to get her stress test, does not tolerate adenosine apparently, had issues in jill past Fausto Stinson MD Cardiology: m icrovascular disease. will arrange for her to ave medication. smoking cessation. will f/u in 2 months to see if there is improvement. will check sensilase at that time. okay for pletal since her EF is grossly normal. RLE has severely reduced PVR's and inadequate perfusion for wound healing L LE has mildly reduced PVR's and normal perfusion pressures. November 24, 2020 N o smoking present. Suspect neurological issues. Says that she used capsasin cream. Currently does not have it. Will ask [facility] to send request. May 27, 2021 S mokes 2-3 cigarettes a day Fausto Stinson MD Cardiology: S x have improved since she stopped smoking, derives benefit more so on the R leg where she has been putting her nitro patch. Advised her to split the nitro pack in half and apply to both feet. November 24, 2020 C urrently not using nitro. May 27, 2021 Needs refill on nitor pills Fausto Stinson MD Cardiology:Check upper extremiti es arterial duplex Fausto Stinson MD Cardiology: H er updated medication list for this problem includes: Hydrochlorothiazide 25 Mg Tablet (Hydrochlorothiazide) ..... 1 tablet once a day Candesartan 16 Mg Tablet (Candesartan) ..... Take 16 mg by mouth once a day BP today: 120/76 P rior BP: 140/80 (11/24/2020) Labs Reviewed: C reat: 0.86 (09/24/2018) C hol: 235 (09/24/2018) HDL: 66 (09/24/2018) Fausto Stinson MD Cardiology Follow up : A lso has improved ulcer is resolved. Should follow with Podiatry. Fausto Stinson MD Cardiology Follow up : S x have improved since she stopped smoking, derives benefit more so on the R leg where she has been putting her nitro patch. Advised her to split the nitro pack in half and apply to both feet. November 24, 2020 C urrently not using nitro. Fausto Stinson MD Cardiology Follow up :No new osmin st pains. Fausto Stinson MD Cardiology Follow up : m icrovascular disease. will arrange for her to ave medication. smoking cessation. will f/u in 2 months to see if there is improvement. will check sensilase at that time. okay for pletal since her EF is grossly normal. RLE has severely reduced PVR's and inadequate perfusion for wound healing L LE has mildly reduced PVR's and normal perfusion pressures. & #13;November 24, 2020 N o smoking present. Suspect neurological issues. Says that she used capsasin cream. Currently does not have it. [facility] Fausto Stinson MD Cardiology Follow up :STarted on Lyrica. Negative carotid US and MRI with small vessel disease. Needs to see Neuro for any further workup. Fausto Stinson MD Cardiology Follow up :STable on BP meds. B P today: 140/80 P rior BP: 160/100 (06/06/2019) Labs Reviewed: C reat: 0.86 (09/24/2018) C hol: 235 (09/24/2018) HDL: 66 (09/24/2018) T he following medications were removed from the medication list: Lisinopril 10 Mg Oral Tablet (Lisinopril) ..... One tab. twice daily Amlodipine Besylate 10 Mg Oral Tablet (Amlodipine besylate) ..... One tab. daily Her updated medication list for this problem includes: Candesartan (atacand) 16 Mg Tablet (Candesartan (atacand) 16 mg tablet) ..... Take 16 mg by mouth once daily Hydrochlorothiazide 25 Mg Oral Tablet (Hydrochlorothiazide) ..... One tab daily Fausto Stinson MD Cardiology:Unable to swallow large pills, will put her on Crestor 10 mg daily. Fausto Stinson MD Cardiology:Also has improved ulc er is resolved. Fausto Stinson MD Cardiology:Stopped smoking Vero Stinson MD Cardiology:Sx have i mproved since she stopped smoking, derives benefit more so on the R leg where she has been putting her nitro patch. Advised her to split the nitro pack in half and apply to both feet. Fausto Stinson MD Cardiology:Will d/c her amlodipine which is probably causing her leg swelling. Will increase her lisinopril to 10 mg twice a day, add water pill with HCTZ 25 mg daily. Have her check BPs at home twice a day and have her come back in 1 month and check blood work. T he following medications were removed from the medication list: Norvasc 2.5 Mg Oral Tablet (Amlodipine besylate) ..... One tab. daily Her updated medication list for this problem includes: Lisinopril 10 Mg Oral Tablet (Lisinopril) ..... One tab. daily Amlodipine Besylate 10 Mg Oral Tablet (Amlodipine besylate) ..... One tab. daily Fausto Stinson MD Cardiology Fausto Stinson MD Cardiology:microvasc ular disease. will arrange for her to ave medication. smoking cessation. will f/u in 2 months to see if there is improvement. will check sensilase at that time. okay for pletal since her EF is grossly normal. RLE has severely reduced PVR's and inadequate perfusion for wound healing L LE has mildly reduced PVR's and normal perfusion pressures. Fausto Stinson MD Cardiology:Angio B/L AIF. T he risks and benefits of the procedure, including but not limited the risk of heart attack, , stroke, bleeding, kidney failure, and loss of limb as well as the alternative of continued medical therapy, stress testing or bypass surgery were discussed with the patient and any present family members and the patient wishes to proceed with cardiac cath and stenting. The patient and family had opportunity to discuss this with us. Written material including informed consent was given out. Fausto Stinson MD Cardiology:Stopped in 07/2018. S otf Stinson MD Cardiology follow up Chivo perera MD Cardiology follow up Chivo perera MD Cardiology follow up Chivo perera MD Cardiology follow up Chivo perera MD Cardiology follow up Chivo perera MD Cardiology follow up Chivo perera MD Cardiology follow up Chivo perera MD Cardiology follow up Chivo perera MD Cardiology follow up Chivo perera MD Cardiology follow up Chivo perera MD Cardiology follow up Chivo perera MD Cardiology follow up Chivo perera MD Cardiology New Patient [facility] New Patient [facility] New Patie nt :SUMMER 1:160. WIll order sed rate to assess for potential vasculitis. [facility] New Patie nt :Encourage continuing to cut down on smoking. [facility] New Patie nt :Will request PFTs and 6 minute walk test results when completed. The following medications were removed from the medication list: Ipratropium-albuterol 0.5-2.5 (3) Mg/3ml Inhalation Solution (Ipratropium-albuterol) ..... As needed Qvar 80 Mcg/act Inhalation Aerosol Solution (Beclomethasone dipropionate) ..... 2 puffs twice daily Ventolin Hfa 108 (90 Base) Mcg/act Inhalation Aerosol Solution (Albuterol sulfate) ..... 2 puffs every 4-6 hours Symbicort 160-4.5 Mcg/act Inhalation Aerosol (Budesonide-formoterol fumarate) ..... 1 puff twice daily [facility] Cardiology New Patie nt : O rders: A rterial - SENSILASE (CPT-17328) S ED RATE BY MODIFIED WESTERGREN (809) L IPID PANEL (2630) [facility] Cardiology New Patie nt :Will order echo and regadenosine stress test. O rders: E KG (CPT-82232) C omplete Echo (CPT-79444) S TR - Adenosine (CPT-23082) [facility] Hem/Onc:SUMMER titer 1: 160. I will check comprehensive SUMMER panel. Referal to rheumatology as above. Orders: A NA PANEL, COMPREHENSIVE (58615) A NA SCREEN REFL TO TITER, IFA (249) R heumatoid Arthritis Factor (589347) 9 9214 MOD Complex (CPT-59400) Antolin Brink MD Hem/Onc:The patient' s work up for Von Willebrand's disease was unremarkable. She was noted to have a positive SUMMER titer 1:160. I recommend referral to rheumatology for further evaluation. Orders: S NOMED-CT: [id number] Current Medications Documented (SCT-[id number]) P rotime (66014) P ARTIAL THROMBOPLASTIN TIME, ACTIVATED ([phone] MOD Complex (CPT-65892) Antolin Brink MD Hem/Onc:The patient has extensive bruising on her forearms. She has no other areas on her body with easy brusing. The patient states that she has blistering of the skin prior to the ecchymosis formartion. I have seen this as a side effect of singulair use. I have asked her to discontinue this to see if this resolves. I will do an extensive work up for evaluation of bleeding diathasis including evaluation for von Willebrand's disease. She will return in 1 month for follow up. Orders: C BC (INCLUDES DIFF/PLT) (7191) S NOMED-CT: [id number] Current Medications Documented (SCT-[id number]) C RYOGLOBULIN (%CRYOCRIT), SERUM (22111) P TT+F VIII+vWF Act+vWF Ag+v... (547912) A NANO GROUP AND RH TYPE (7788) A NCA Panel (097785) A NA SCREEN IFA W/REFL TITER IFA (06443) S ED RATE BY MODIFIED KLEVER (226) 1 3894 MOD C omplex (CPT-57895) Antolin Brink MD Date Name Complete Echo Other Test Venous Doppler Bilat eral UE Arterial Duplex Uppe r Extremity Bilateral Venous Doppler Bilat eral LE Arterial Duplex Bi-L ower EX PROTHROMBIN TIME WIT H INR PROTHROMBIN TIME WIT H INR LIPID PANEL CBC (INCLUDES DIFF/P LT) BASIC METABOLIC PANE L W/EGFR Other Test AIF Intervention - G C AIF Diagnostic - GC PROTHROMBIN TIME WIT H INR CBC (INCLUDES DIFF/P LT) LIPID PANEL BASIC METABOLIC PANE L W/EGFR LIPID PANEL SED RATE BY MODIFIED KLEVER Arterial - SENSILASE STR - Adenosine Complete Echo Protime PARTIAL THROMBOPLAST IN TIME, ACTIVATED Rheumatoid Arthritis Factor SUMMER SCREEN REFL TO T ITER, IFA SUMMER PANEL, COMPREHEN SIVE ANCA Panel ABO GROUP AND RH TYP E PTT+F VIII+vWF Act+v WF Ag+v... CRYOGLOBULIN (%CRYOC RIT), SERUM SED RATE BY MODIFIED MIKEYERGREN SUMMER SCREEN IFA W/REF L TITER IFA CBC (INCLUDES DIFF/P LT) HISTORY OF PROCEDURES Procedure Date Procedure Name Provider Procedure Notes S tatus EKG Fausto Stinson MD completed EKG Fausto Stinson MD completed EKG Fausto Stinson MD completed EKG Fausto Stinson MD completed EKG Fausto Stinson MD completed EKG Fausto Stinson MD completed EKG Fausto Stinson MD completed EKG Chivo Gomes MD complet ed SNOMED-CT: [id number] Current Medications Documented Antolin Brink MD completed SNOMED-CT: [id number] Current Medications Documented Antolin Brink MD completed
--- OUTSIDE RECORDS SUMMARY | 2024-09-02 10:13 | XMS_ITS | Clinical Summary ---
Author Organization [facility] Address [address] [place] [address] Phone Care Team Providers Care Inside Sales Executive Name Role Phone TAQUERIA CADENA, JOSE Benson Unavailable [phone] SAMSON JANG MD Unavailable [phone] Reason for Visit and Chief Complaint The Chief Complaint is: FU C7-T1 INTERLAMINAR EPIDURAL STEROID INJECTION DONE 05/23/23, 0% RELIEF ONGOING Plan of Treatment No Plan of Treatment Recorded Assessments Includes: Assessments from this encounter Findings - Cervical spondylosis with radiculopathy [M47.22 - Other spondylosis with radiculopathy, cervical region] - Last Documented On 06/21/2023 9:16AM ; [facility] - Cervical spine stenosis [M48.02 - Spinal stenosis, cervical region] - Last Documented On 06/21/2023 9:16AM ; [facility] - Cervical radiculopathy [M54.12 - Radiculopathy, cervical region] - Last Documented On 06/21/2023 9:16AM ; [facility] - Myalgia and myositis [M79.18 - Myalgia, other site] - Last Documented On 06/21/2023 9:16AM ; [facility] Medical Equipment - Implanted Devices Includes: Current Devices No Medical Equipment Recorded Medications Includes: Medications discussed during this encounter and other current Medications Discontinued / Stopped on this date JOSE CADENA on 05/08/2023 Diclofenac Sodium 75 MG Oral Tablet Delayed Release Provider: JOSE GOODEN Diagnosis: Spinal stenosis, cervical region Last Documented On 9:11AM By JOSE CADENA ; [facility] diphenhydrAMINE HCl 50 MG Or al Capsule Provider: JOSE CADENA Diagnosis: Spinal stenosis, cervical region Last Documented On 06/21/2023 9:04AM By Snehal CID ; [facility] predniSONE 50 MG Oral Tablet Provider: JOSE GOODEN Diagnosis: Spinal stenosis, cervical region Last Documented On 06/21/2023 9:04AM By Snehal CID ; [facility] ALPRAZolam 0.5 MG Oral Tablet Provider: JOSE CADENA Diagnosis: Other spondylosi s with radiculopathy, cervical region Last Documented On 06/21/2023 9:03AM By Snehal CID ; [facility] Ketorolac Tromethamine 10 MG Oral Tablet Provider: SAMSON JANG MD Diagnosis: Last Documented On 06/21/2023 9:04AM By Snehal CID ; [facility] Montelukast Sodium 10 MG Oral Tablet Prov ider: SAMSON JANG MD Diagnosis: Last Documented On 06/21/2023 9:04AM By Snehal CID ; [facility] Doxepin HCl 25 MG Oral Capsule Provider: Diagnosis: Last Documented On 06/21/2023 9:04AM By Snehal CID ; [facility] Ketorolac Tromethamine 10 MG Oral Tablet Provider: SAMSON JANG MD Diagnosis: Last Documented On 06/21/2023 9:04AM By Snehal CID ; [facility] New / Renewed during this visit JOSE CADENA on 06/21/2023 Lidocaine 5% External Patch Provider: JOSE GOODEN 30 day supply: 30 patch, 2 refills Diagnosis: Spinal stenosis, cervical region as directed apply patch to a ffected area for 12 hours and remove for 12 hours Pharmacy: [address], [facility], [phone] - Last Documented On 02/29/202 4 3:14PM By JOSE CADENA ; [facility] Current Medications (continue as prescribed) Lidocaine 5% External Patch 09/20/2023 Provider: JOSE GOODEN Diagnosis: Spinal stenosis, cervical region as directed apply patch to a ffected area for 12 hours and remove for 12 hours Last Documented On 4 3:21PM By JOSE CADENA ; [facility] Varenicline Tartrate 1 MG Oral Tablet 06/20/2023 Pro vider: SAMSON JANG MD Diagnosis: Last Documented On 06/21/2023 9:05AM By Snehal CID ; [facility] Ketorolac Tromethamine 10 MG Oral Tablet 06/08/2023 Provider: SAMSON JANG MD Diagnosis: Last Documented On 06/21/2023 9:06AM By Snehal CID ; [facility] Latanoprost 0.005% Ophthalmic Solution 06/05/2023 Pr ovider: Diagnosis: Last Documented On 06/21/2023 9:05AM By Snehal CID ; [facility] QUEtiapine Fumarate 200 MG Oral Tablet 01/10/2023 Pr ovider: Diagnosis: AT BEDTIME Last Documented On 3 10:08AM By Snehal CID ; [facility] Melatonin 5 MG Oral Capsule 12/20/2022 Provider: Diagnosis: Last Documented On 3 11:26AM By Snehal CID ; [facility] Banophen 25 MG Oral Capsule 12/19/2022 Provider: SAMSON JANG MD Diagnosis: Last Documented On 3 11:22AM By Snehal CID ; [facility] Pregabalin 150 MG Oral Capsule 12/19/2022 Provider: SAMSON JANG MD Diagnosis: Last Documented On 3 11:23AM By Snehal CID ; [facility] QUEtiapine Fumarate 100 MG Oral Tablet 12/05/2022 Pr ovider: Diagnosis: Last Documented On 3 11:24AM By Snehal CID ; [facility] Ventolin HFA 108 (90 Base) M CG/ACT Inhalation Aerosol Solution 11/30/2022 Provider: SAMSON JANG MD Diagnosis: Last Documented On 3 11:25AM By Snehal CID ; [facility] hydroCHLOROthiazide 12.5 MG Oral Tablet 11/28/2022 P rovider: SAMSON JANG MD Diagnosis: Last Documented On 3 11:22AM By Snehal CID ; [facility] Dicyclomine HCl 20 MG Oral Tablet 11/27/2022 Provide r: SAMSON JANG MD Diagnosis: Last Documented On 3 11:23AM By Snehal CID ; [facility] Methocarbamol 750 MG Oral Tablet 11/24/2022 Provider : SAMSON JANG MD Diagnosis: Last Documented On 3 11:23AM By Snehal CID ; [facility] Atorvastatin Calcium 40 MG Oral Tablet 11/24/2022 Pr ovider: SAMSON JANG MD Diagnosis: Last Documented On 3 11:23AM By Snehal CID ; [facility] Candesartan Cilexetil 32 MG Oral Tablet 11/20/2022 P rovider: SAMSON JANG MD Diagnosis: Last Documented On 3 11:22AM By Snehal CID ; [facility] Medications Administered Includes: Administered Medications from this encounter No Administered Medications Recorded Vital Signs Includes: Vital Signs from this encounter Vital Name 06/21/2023 09:02A Temp-Oral (F) 98.6 Height (in) 64 Weight (lb) 180 Body Mass Index 30.9 Body Surface Area 1.9 Pain Level 7 Last Documented: On 06/21/2023 9:03AM ; [facility] Results Includes: Results discussed during this encounter No Results Recorded For Specified Dates History of Present Illness Includes: History of Present Illness from this encounter HPI - Allergy list reviewed - Problem list reviewed - Medication reconciliation performed - Medication list reviewed - Prescription Drug Monitoring Program website checked. N/A - Last dose of medication? - Pain in AM - Pain in PM - Primary pain location Neck - Primary pain duration 5 months - Secondary pain duration 5 mths - Secondary pain location Shoulders - Pain is throbbing - Pain is dull, aching - Pain is shooting - Pain is sharp - Pain is pressure like - Pain is deep - Pain is tight - Pain aggravated going down stairs - Pain aggravated going up stairs - Pain aggravated lying down - Pain aggravated sitting - Pain aggravated standing - Pain aggravated when out of chair - Pain aggravated by walking - Pain aggravated lifting - Pain aggravated bending - Pain radiating to the left shoulder - Neck pain radiating to both sides - Pain radiates in left hand - Last drug screen appropriate N/A This visit was conducted with use of interactive audio and video telecommunication system with real time communication between the patient and the provider. All concerns discussed and addressed without physical examination completed. If at any time it was felt patient should be evaluated in the clinic, further arrangements would of been made. Verbal patient consent for visit obtained today. Discussion: Patient returns in follow-up to a repeat leftward C7-T-1 interlaminar epidural completed to-3 weeks ago. She reports no relief with this procedure. Patient reports pain has returned to baseline. She describes neck pain with pain into the left upper extremity. Symptoms worsen with cervical rotation. She continues home exercises; although, does not feel these are beneficial. At this point, recommend she follow up with her surgeon, Dr. Garcia, for further evaluation. She would like a refill on lidocaine patches, otherwise medications are filled by PCP. Past note: Patient returns in follow-up to a leftward C7-T-1 interlaminar epidural completed 2.5 weeks ago. She reports 90% relief initially with minimal ongoing neck pain relief. She reports near resolution of radicular symptoms in the left upper extremity. She describes neck pain with pain in the left upper extremity, to a lesser degree.Pain is worse with right lateral rotation and extension. She continues home exercises, but feels they are ineffective. Lidocaine patches are helpful when used, but during the 12 hours she does not wear them, pain is worse. Ketoralac is used as needed, prescribed by her primary every 19-20 days. She doesn't feel this is beneficial. Recommend diclofenac 75 mg once daily for now in place of Ketoralac. We will need to monitor kidney function and hope to utilize this we also discussed topical voltaren gel. Recommend repeat cervical epidural at this time. If pain remains ongoing in cervical spine alone, would consider cervical medial branch blocks with progression to RF ablation. Patient tolerated preprocedure treatment for dye allergy. Past note: Patient is a 57 year old female with history of ACDF in 2016 referred for evaluation and treatment. She complains of left sided neck pain for the last 5-6 months. This started following a fall on the ice in July. She has been treating with her pcp since September with activity modification, nsaids and a muscle relaxant. This is providing little benefit. Pain radiates to the left upper extremity in a multi dermatomal pattern, predominately C5/6. There is associated numbness and weakness. Surgery in 2016 provided her symptom relief until this fall. Symptoms are affecting nearly every aspect of daily living. She has a work from home help with cooking and self care. She has a difficult time gripping things with her left hand. She is not sleeping well. Patient is scheduled to start therapy next week. Pregabalin is used bid and ketoralac dosing is used every 19 days per patient report. Tylenol provides minimal relief. While I do recommend she start therapy next week, I strongly recommend a cervical epidural. Pain is significantly impacting her every day activities and self care abilities. She has been treating conservatively with her pcp for 2 months. Of note, patient reports allergy to IV contrast. She has undergone spinal injections in the past with Dr. Dalia Alejandro. She received treatment with benedryl doses prior and procedure was tolerated. She wishes to proceed with injection with this treatment. She is also anxious about the procedure and we discussed one dose of xanax. Imaging: All relevant imaging available was personally reviewed with the patient today with the following tests and results noted: Xray C spine 09/22/22: Post op changes ACDF C3-4. Advanced DDD greatest at C5-6. Advanced facet arthropathy throughout the cervical spine bilaterally, greatest on left at C5-6. MRI C-spine 09/28/22: C3-4 discectomy with anterior interbody fusion changes, right posterior lateral osteophyte result in severe right preforaminal stenosis. C4-5 bilateral uncovertebral joint hypertrophic changes are present resulting and moderate bilateral neural foraminal stenosis. There is moderate central spinal stenosis, mild progression noted at this level compared with prior study. C5-6 diffusely bulging degenerative annulus noted additionally there is evidence of right posterior lateral osteophyte and disc material projecting posteriorly resulting and severe spinal canal stenosis. Severe right pre-foraminal stenosis. Right C6 and right C7 nerve root effaced. Moderate to severe neural foraminal stenosis unremarkable C6-7, C7-T1 Location for visit: Provider: Privacy of provider's office. [address] [place] [address]., [place] [address] Patient: Patient personal setting Total time spent with patient via telecommunication 18 minutes Social History Description Last Updated Former smoker 08/02/2023 Last Documented On 3 9:00AM ; [facility] No consumption of alcohol 06/21/2023 Last Documented On 3 9:16AM ; [facility] Not using drugs 06/21/2023 Last Documented On 3 9:16AM ; [facility] Current smoker 12/20/2022 Last Documented On 3 9:00AM ; [facility] Difficulty walking 12/20/2022 Last Documented On 3 9:00AM ; [facility] Smoking packs of cigarettes per day 1 Last Documented On 3 9:00AM ; [facility] Smoking Status Unknown Procedures and Surgical History Includes: Procedures from this encounter Procedures Code Diagnosis Performing Provider Service L ocation Service Date use of tobacco assessment performed 1000F Last Documented On 3 9:06AM ; [facility] standardized depression screening: negative for symptoms 3351F Last Documented On 3 9:00AM ; [facility] review of medications documented 1160F Last Documented On 3 9:06AM ; [facility] screening for adult depression: impressi on and score 0 Last Documented On 3 9:00AM ; [facility] Clinical summary provided to patient ~ Patient understands and agrees with treatment plan. Questions answered Last Documented On 3 9:00AM ; [facility] SOAPP-R: total score 3 Last Documented On 3 9:00AM ; [facility] Surgical History Last Updated No Pacemaker 06/21/2023 Last Documented On 3 9:16AM ; [facility] Medical History Includes: Medical History addressed during this encounter Description Last Updated Denies a fear of falling. 06/21/2023 Last Documented On 3 9:16AM ; [facility] Has had no fall in the last 12 months. 1 08/21/2022 Last Documented On 3 9:16AM ; [facility] No Pain Pump 06/21/2023 Last Documented On 3 9:16AM ; [facility] No Spinal cord stimulator 06/21/2023 Last Documented On 3 9:16AM ; [facility] CT/MRI September 2022neckGRMCshoulderFeb 202 3GRMC 04/11/2023 Last Documented On 3 9:00AM ; [facility] Currently wearing eyeglasses 04/11/2023 Last Documented On 3 9:00AM ; [facility] Injection/Nerve blocks 04/11/2023 Last Documented On 3 9:00AM ; [facility] Message/Acupressure 04/11/2023 Last Documented On 3 9:00AM ; [facility] Pain Clinic 04/11/2023 Last Documented On 3 9:00AM ; [facility] Physical therapy 04/11/2023 Last Documented On 3 9:00AM ; [facility] Please list all illnesses/co nditions you have been diagnosed with: HPTN; peripheral vascular disease; high cholesterol; restricted breathing disorder; lung stone; seizures; allergies; depression 04/11/2023 Last Documented On 3 9:00AM ; [facility] Please list all surgeries: 2 016 November neck surgerygallbladder removal 2020hysterectomy 2000appendectomy 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 on R femur removed 199804/11/2023 Last Documented On 3 9:00AM ; [facility] Severe Pain 04/11/2023 Last Documented On 3 9:00AM ; [facility] Treatment with TENS unit 04/11/2023 Last Documented On 3 9:00AM ; [facility] X-rays September 2022neck and backGRMC 04/11 Last Documented On 3 9:00AM ; [facility] Family History Includes: Family History addressed during this encounter Description Last Updated Maternal history of family history of is chemic heart disease 06/21/2023 Last Documented On 3 9:16AM ; [facility] Maternal history of family history of ki dney disease 06/21/2023 Last Documented On 3 9:16AM ; [facility] Review of Systems Includes: Review of Systems from this encounter No Review of Systems Recorded Mental Status Includes: Mental Status from this encounter Description Oriented to time, place, and person Functional Status Includes: Functional Status from this encounter No Functional Status Recorded Physical Exam Includes: Physical Exam from this encounter Allergies Includes: Active Allergies Substance Type Reaction Onset Date Resolved Date Statu s Shellfish Allergy 12/20/2022 Active Last Documented On 4 2:44PM ; [facility] NSAIDs Allergy 12/20/2022 Active Last Documented On 4 2:44PM ; [facility] Meloxicam Allergy 12/20/2022 Active Last Documented On 4 2:44PM ; [facility] Effexor XR Allergy 12/20/2022 Active Last Documented On 4 2:44PM ; [facility] Contrast Dye Allergy 12/20/2022 Active Last Documented On 4 2:44PM ; [facility] Note: THROAT CLOSES AND STOPS BREATHING Aspirin Allergy 12/20/2022 Active Last Documented On 4 2:44PM ; [facility] Encounters Encounter Provider Location Date Check-In Time Check-Out Time Diagnosis TELEHEALTH JOSE CADENA [facility] 06/21/20 9:00AM 9:23AM Spinal Stenosis Cervical,Myalgia and Myositis,Cervical Radiculopathy,Spo ndylosis with Radiculopathy Cervical Region Insurance Includes: Active Insurance Policies Plan Name Member ID Group # Subscriber Relationship Effect [place] Dates - [facility] [id number] [id number] Clinical Notes Includes: Clinical Notes from this encounter * Progress note Date Encounter Last Documented by 06/21/2023 TELEHEALTH Last documented on 06/21/2023; 9:16 AM, JOSE CADENA; [facility] Chief Complaint The Chief Complaint is: FU C7-T1 INTERLAMINAR EPIDURAL STEROID INJECTION DONE 05/23/23, 0% RELIEF ONGOING. History of Present Illness - Allergy list reviewed - Problem list reviewed - Medication reconciliation performed - Medication list reviewed - Prescription Drug Monitoring Program website checked. N/A - Last dose of medication? - Pain in AM - Pain in PM - Primary pain location Neck - Primary pain duration 5 months - Secondary pain duration 5 mths - Secondary pain location Shoulders - Pain is throbbing - Pain is dull, aching - Pain is shooting - Pain is sharp - Pain is pressure like - Pain is deep - Pain is tight - Pain aggravated going down stairs - Pain aggravated going up stairs - Pain aggravated lying down - Pain aggravated sitting - Pain aggravated standing - Pain aggravated when out of chair - Pain aggravated by walking - Pain aggravated lifting - Pain aggravated bending - Pain radiating to the left shoulder - Neck pain radiating to both sides - Pain radiates in left hand - Last drug screen appropriate N/A This visit was conducted with use of interactive audio and video telecommunication system with real time communication between the patient and the provider. All concerns discussed and addressed without physical examination completed. If at any time it was felt patient should be evaluated in the clinic, further arrangements would of been made. Verbal patient consent for visit obtained today. Discussion: Patient returns in follow-up to a repeat leftward C7-T-1 interlaminar epidural completed to-3 weeks ago. She reports no relief with this procedure. Patient reports pain has returned to baseline. She describes neck pain with pain into the left upper extremity. Symptoms worsen with cervical rotation. She continues home exercises; although, does not feel these are beneficial. At this point, recommend she follow up with her surgeon, Dr. Garcia, for further evaluation. She would like a refill on lidocaine patches, otherwise medications are filled by PCP. Past note: Patient returns in follow-up to a leftward C7-T-1 interlaminar epidural completed 2.5 weeks ago. She reports 90% relief initially with minimal ongoing neck pain relief. She reports near resolution of radicular symptoms in the left upper extremity. She describes neck pain with pain in the left upper extremity, to a lesser degree.Pain is worse with right lateral rotation and extension. She continues home exercises, but feels they are ineffective. Lidocaine patches are helpful when used, but during the 12 hours she does not wear them, pain is worse. Ketoralac is used as needed, prescribed by her primary every 19-20 days. She doesn't feel this is beneficial. Recommend diclofenac 75 mg once daily for now in place of Ketoralac. We will need to monitor kidney function and hope to utilize this we also discussed topical voltaren gel. Recommend repeat cervical epidural at this time. If pain remains ongoing in cervical spine alone, would consider cervical medial branch blocks with progression to RF ablation. Patient tolerated preprocedure treatment for dye allergy. Past note: Patient is a 57 year old female with history of ACDF in 2016 referred for evaluation and treatment. She complains of left sided neck pain for the last 5-6 months. This started following a fall on the ice in July. She has been treating with her pcp since September with activity modification, nsaids and a muscle relaxant. This is providing little benefit. Pain radiates to the left upper extremity in a multi dermatomal pattern, predominately C5/6. There is associated numbness and weakness. Surgery in 2015 provided her symptom relief until this fall. Symptoms are affecting nearly every aspect of daily living. She has a work from home help with cooking and self care. She has a difficult time gripping things with her left hand. She is not sleeping well. Patient is scheduled to start therapy next week. Pregabalin is used bid and ketoralac dosing is used every 19 days per patient report. Tylenol provides minimal relief. While I do recommend she start therapy next week, I strongly recommend a cervical epidural. Pain is significantly impacting her every day activities and self care abilities. She has been treating conservatively with her pcp for 2 months. Of note, patient reports allergy to IV contrast. She has undergone spinal injections in the past with Dr. Dalia Alejandro. She received treatment with benedryl doses prior and procedure was tolerated. She wishes to proceed with injection with this treatment. She is also anxious about the procedure and we discussed one dose of xanax. Imaging: All relevant imaging available was personally reviewed with the patient today with the following tests and results noted: Xray C spine 09/22/22: Post op changes ACDF C3-4. Advanced DDD greatest at C5-6. Advanced facet arthropathy throughout the cervical spine bilaterally, greatest on left at C5-6. MRI C-spine 09/28/22: C3-4 discectomy with anterior interbody fusion changes, right posterior lateral osteophyte result in severe right preforaminal stenosis. C4-5 bilateral uncovertebral joint hypertrophic changes are present resulting and moderate bilateral neural foraminal stenosis. There is moderate central spinal stenosis, mild progression noted at this level compared with prior study. C5-6 diffusely bulging degenerative annulus noted additionally there is evidence of right posterior lateral osteophyte and disc material projecting posteriorly resulting and severe spinal canal stenosis. Severe right pre-foraminal stenosis. Right C6 and right C7 nerve root effaced. Moderate to severe neural foraminal stenosis unremarkable C6-7, C7-T1 Test Conclusions PHQ-9 Score: 0 Date:12/20/22 BPI Score: Date: MiDAS Score: Date: SOAPP-R Score: 3 LOW Date:12/20/22 OSWESTRY Score: 62% Date:12/20/22 Past Medical/Surgical History Reported: Injection/Nerve blocks, Pain Clinic, Treatment with TENS unit, Physical therapy, Message/Acupressure, Please list all illnesses/conditions you have been diagnosed with: HPTN; peripheral vascular disease; high cholesterol; restricted breathing disorder; lung stone; seizures; allergies; depression, and Please list all surgeries: 2015 neck surgerygallbladder removal 2020hysterectomy 2000appendectomy 1999bone tumor on R femur removed 1998. Medical: Currently wearing eyeglasses and orthopedic history Left Knee Score mild pain Severe Pain. No Spinal cord stimulator and no Pain Pump. Surgical / Procedural: No Pacemaker. [facility]. Physical Trauma: Has had no fall in the last 12 months. and Denies a fear of falling. Current Medication - Atorvastatin Calcium 40 MG Oral Tablet One tablet daily 30 days, 0 refills - Banophen 25 MG Oral Capsule One tablet four times a day 15 days, 0 refills - Candesartan Cilexetil 32 MG Oral Tablet One tablet daily 90 days, 0 refills - [facility] Melatonin 5 MG Oral Capsule One tablet at bed time 0 days, 0 refills - Dicyclomine HCl 20 MG Oral Tablet One tablet three times a day 30 days, 0 refills - hydroCHLOROthiazide 12.5 MG Oral Tablet One tablet daily 30 days, 0 refills - Ketorolac Tromethamine 10 MG Oral Tablet One tablet daily 5 days, 0 refills - Latanoprost 0.005% Ophthalmic Solution as directed 18 days, 0 refills - Lidocaine 5% External Patch as directed apply patch to affected area for 12 hours and remove for 12 hours, 30 days, 2 refills - Methocarbamol 750 MG Oral Tablet One tablet three times a day 30 days, 0 refills - Pregabalin 150 MG Oral Capsule One tablet twice a day 30 days, 0 refills - QUEtiapine Fumarate 100 MG Oral Tablet One tablet at bed time 30 days, 0 refills - QUEtiapine Fumarate 200 MG Oral Tablet 2 once a day AT BEDTIME, 30 days, 0 refills - Varenicline Tartrate 1 MG Oral Tablet One tablet twice a day 30 days, 0 refills - Ventolin HFA 108 (90 Base) MCG/ACT Inhalation Aerosol Solution as directed 25 days, 0 refills Social History Difficulty walking. Tobacco use: Cigarette smoking smoking packs of cigarettes per day 1 and former smoker. Alcohol: No consumption of alcohol. Drug Use: Not using drugs. Allergies - Aspirin - Contrast Dye - Effexor XR - Meloxicam - NSAIDs - Shellfish Family History Maternal: Ischemic heart disease Kidney disease Physical Findings - Vitals taken 06/21/2023 09:02 am Temp-Oral 98.6 F Height 64 in Weight 180 lbs Body Mass Index 30.9 kg/m2 Body Surface Area 1.9 m2 Pain Level 7 Pain Level Note NECK General Appearance: - Normal. - In no acute distress. Musculoskeletal System: General/bilateral: Musculoskeletal Scales: Value Lumbar oswestry score 62 Neurological: - Oriented to time, place, and person. Psychiatric: Psychiatric: Value PHQ9 score: 0 - Mood was appropriate to the affect. Vital signs self reported by patient. Full exam not completed with telehealth visit Tests Educational Testing: Questionnaires PHQ-9: Value SOAPP-R: total score 3 Assessment - Cervical spondylosis with radiculopathy [M47.22 - Other spondylosis with radiculopathy, cervical region] - Cervical spine stenosis [M48.02 - Spinal stenosis, cervical region] - Cervical radiculopathy [M54.12 - Radiculopathy, cervical region] - Myalgia and myositis [M79.18 - Myalgia, other site] Therapy - Clinical summary provided to patient Patient understands and agrees with treatment plan. Questions answered. Discussed Refill lidocaine patch. Recommend she follow up with surgeon for further treatment or recommendations. Follow-up with our clinic as needed Plan StartCited - Spinal stenosis, cervical region Lidocaine 5% patch as directed apply patch to affected area for 12 hours and remove for 12 hours, 30 days, 2 refills EndCited Practice Management Use of tobacco assessment performed Review of medications documented; Standardized depression screening: negative for symptoms and for adult impression and score 0. Results of this interaction were communicated directly to the patient's referring and/or primary care provider. Multiple documents have been reviewed today in conjunction with her evaluation including online prescription monitoring database, laboratory data, imaging studies, previous specialist provider notes and primary care provider notes. For all patients on acute or chronic opioids, ongoing need for opioid analgesia is assessed at each visit with consideration of discontinuation or wean to lowest effective dose when possible and appropriate. Contents of this document have been edited for correctness, but may be subject to typographical or industrial methods consultant errors. Verify all diagnoses, medications, dosages, and patient instructions with patient and/or the originator of this document. Care Team - ADALBERTO WORKMAN- - Pain Management - SAMSON JANG MD Health Reminders - Assess BMI satisfied 06/21/2023. - Assess Tobacco Use satisfied 06/21/2023. - Depression Screening satisfied 06/21/2023. - Follow up plan for Depression Screening satisfied 06/21/2023. User Defined 27 Location for visit: Provider: Privacy of provider's office. [address] [place] [id number] Patient: Patient personal setting Total time spent with patient via telecommunication 18 minutes
--- OUTSIDE RECORDS SUMMARY | 2024-09-02 10:13 | XMS_ITS | Encounter Summary ---
Author Organization [facility] Address [facility] [place] [address] Care Team Providers Care Pig Machine Crane Operator Name Role Phone Eulalia Lema DO Primary Care Provider [phone] Dayna Maki MD Primary Care Provider Dayna Maki MD Primary Care Provider Mj Lee MD Primary Care Provider [phone] Dayna Maki MD Unavailable Eulalia Lema DO Unavailable [phone] Dayna Maki MD Primary Care Provider Reason for Visit * Reason Onset Date Comments Appointment 03/04/2018 refused by dinorah nt Results 03/04/2018 1st attempt to c ontact patient to notify of lab results Encounter Details Date Type Department Care Team (Late st Contact Info) Description 03/04/2018 Telephone [facility] General Internal Medicine [address] [facility] [address] [place] [address] Eulalia Lema DO [address] [facility] [place] [address] Appointment (refused by patient); Results (1st attempt to contact patient to notify of lab results) Social History Tobacco Use Types Packs/Day Years [...] encounter Miscellaneous Notes * Telephone Encounter - Shaquille Staples III, MD - 03/06/2018 9:55 AM CDT Rx sent to pharmacy for liquid KCL. * Telephone Encounter - Sylvie Marcano RN - 03/04/2018 3:45 PM CDT Telephone call from patient. Patient stated that she waited on the phone for an hour trying to schedule an appointment with Rheumatology. Patient stated that she was eventually putting into her previous Rheumatology provider's voice mail and she does not know what she is supposed to do. Patient stated that the previous provider advised her that there was nothing further that she could do for her.Patient stated that Rheumatology would not schedule her because she is showing as a current patientof that provider. * Telephone Encounter - Sylvie Marcano RN - 03/04/2018 2:38 PM CDT Returning call from patient. Patient was provided message from MD about low potassium level and that patient needs to be seen by rheumatology. Patient stated that she did get the message about needing to take the potassium however she is not able to swallow the big potassium pills and wondered if she might be able to have a liquid form of the medication. Patient was provided the number for scheduling for Rheumatology and instructed to contact their office to schedule an appointment and then call [facility] office back with the date and time of the appointment so that a referral can be placed for patient. * Telephone Encounter - Sylvie Marcano RN - 03/04/2018 2:20 PM CDT 1st attempt to contact patient to notify her of lab work results. Telephone call to patient. Call answered by voicemail. Left voice mail message requesting call back. Call back phone number provided. Dr. Quintanilla's Message: Please call patient and let her know her potassium level is low. She will need to take potassium supplements especially with restarting the hydrochlorothiazide. Potassium sent to her pharmacy. Her rheumatologic tests are inconclusive. We will need her to go back to the marketing content manager clinic. ? * Telephone Encounter - Sylvie Marcano RN - 03/04/2018 2:19 PM CDT ----- Message from Eulalia Slater DO sent at 03/01/2018 1:38 PM CDT ----- Regarding: lab results Please call patient and let her know her potassium level is low. She will need to take potassium supplements especially with restarting the hydrochlorothiazide. Potassium sent to her pharmacy. Her rheumatologic tests are inconclusive. We will need her to go back to the marketing content manager clinic. * Telephone Encounter - Catalina Montoya - 03/04/2018 1:56 PM CDT Pt called in and scheduled appt with Dr. Slater for March 20, 2018 at 3:00 PM * Telephone Encounter - Leena Berger - 03/04/2018 1:19 PM CDT Pt: Melinda Edouard#: [id number] Pt calling in response to past attempts to reach her and schedule an appt per Dr. Slater's request. Pt was offered her soonest appt on 03/20/18 and refused as she kept stating I just want to know the results of my blood work She was advised that the doctor would review this with her at her appointment but she again refused to schedule. Pt was advised a message would be sent to Dr. Slater about her request for her blood work results and her refusing to schedule an appointment. GAMALIEL: 02/13/18 NOV: pt refusing to schedule Thank you documented in this encounter Plan of Treatment Not on file documented as of this encounter Visit Diagnoses Diagnosis Essential hypertension- Primary documented in this encounter Additional Health Concerns Infection Onset Date Last Indicated Resolved Time COVID-19 Under Investigation 12/22/2020 12/22/2020 12/22/2020 7:58 PM CDT documented as of this encounter Care Teams Pig Machine Crane Operator Relationship Specialty Start Date End Date Eulalia Leam DO PCP - General 02/18/18 03/20/18 Dayna Maki MD PCP - General 03/21/18 12/21/20 Dayna Maki MD PCP - General Internal Medicine 12/22/20 12/22/20 Mj Lee MD [address] [place] [address] [place] [address] PCP - General Internal Medicine 12/23/20 12/23/20 Dayna Maki MD [address] [place] [address] [place] [address] PCP - General 12/24/20 Dayna Maki MD 12/22/20 Eulalia Lema DO Resident - PCP Internal Medicine 02/15/18 documented as of this encounter
--- OUTSIDE RECORDS SUMMARY | 2024-09-02 10:13 | XMS_ITS | Encounter Summary ---
Author Organization [facility] Address [facility] [facility] [place] [address] Care Team Providers Care Rock Duster Name Role Phone Eulalia Lema DO Primary Care Provider [phone] Dayna Maki MD Primary Care Provider Dayna Maki MD Primary Care Provider Mj Lee MD Primary Care Provider [phone] Dayna Maki MD Unavailable Eulalia Lema DO Unavailable [phone] Dayna Maki MD Primary Care Provider Reason for Visit * Reason Onset Date Comments Concerns 02/18/2018 1st attempt to c ontact and R/O triage for ACS LM Encounter Details Date Type Department Care Team (Late st Contact Info) Description 02/18/2018 Telephone [facility] General Internal Medicine [address] [address] Eulalia Lema DO [address] [facility] [address] Concerns (1st attempt to contact and R/O triage for ACS LM ) Social History Tobacco Use Types Packs/Day [...] Telephone Encounter - Sylvie Marcano RN - 02/20/2018 1:18 PM CDT Patient stated that she had spoken with someone yesterday and she has an acute care appointment scheduled for Sunday. * Telephone Encounter - Arlene Oliver - 02/18/2018 12:20 PM CDT 1st attempt to contact patient and R/O triage for ACS for reports black stools. Left message @ [phone] with affiliation and contact number, , no pertient patient information left on voicemail. Provided patient with closing statement on voicemail.If anything new develops,if anything gets worse or if you become increasingly concerned for any reason, please seek out immediate medical Attention. Will re attempt at a later time. Routed to PCP * Telephone Encounter - Mary Clarke - 02/18/2018 11:38 AM CDT PT: Hung Melinda Marguerite PH: [phone] Patient called in concerned about the lisinopril (PRINIVIL; ZESTRIL) 10 MG tablet. She stated that it says that the med says don't take if you have liver and kidney problems. Patient stated that she has both so she isn't sure she should be taking this. Also patient stated that her stools have been black lately. She is requesting that Dr Adam give her a call back at the number listed above. documented in this encounter Plan of Treatment Not on file documented as of this encounter Visit Diagnoses Not on filedocumented in this encounter Additional Health Concerns Infection Onset Date Last Indicated Resolved Time COVID-19 Under Investigation 12/22/2020 12/22/2020 12/22/2020 7:58 PM CDT documented as of this encounter Care Teams Rock Duster Relationship Specialty Start Date End Date Eulalia Lema DO PCP - General 02/18/18 03/20/18 Dayna Maki MD PCP - General 03/21/18 12/21/20 Dayna Maki MD PCP - General Internal Medicine 12/22/20 12/22/20 Mj Lee MD [address] [place] [address] PCP - General Internal Medicine 12/23/20 12/23/20 Dayna Maki MD [address] [place] [id number] PCP - General 12/24/20 Dayna Maki MD 12/22/20 Eulalia Lema DO Resident - PCP Internal Medicine 02/15/18 documented as of this encounter
--- OUTSIDE RECORDS SUMMARY | 2024-09-02 10:13 | XMS_ITS | Encounter Summary ---
Author Organization [facility] Address [facility] [place] [address] Care Team Providers Care Chief Airline Radio Operator Name Role Phone Eulalia Lema DO Primary Care Provider [phone] Dayna Maki MD Primary Care Provider Dayna Maki MD Primary Care Provider Mj Lee MD Primary Care Provider [phone] Dayna Maki MD Unavailable Eulalia Lema DO Unavailable [phone] Dayna Maki MD Primary Care Provider Reason for Visit * Reason Onset Date Comments Results 03/01/2018 Encounter Details Date Type Department Care Team (Late st Contact Info) Description 03/01/2018 Telephone [facility] General Internal Medicine [address] [facility] [address] [place] [address] Eulalia Lema DO [address] [facility] [place] [address] Results Social History Tobacco Use Types Packs/Day Years [...] encounter Miscellaneous Notes * Telephone Encounter - Orly Sharma - 03/01/2018 1:08 PM CDT Pt called to get the results of her lab work Please send the results in the mail and also please give her a call to discuss the labs documented in this encounter Plan of Treatment Not on file documented as of this encounter Visit Diagnoses Not on filedocumented in this encounter Additional Health Concerns Infection Onset Date Last Indicated Resolved Time COVID-19 Under Investigation 12/22/2020 12/22/2020 12/22/2020 7:58 PM CDT documented as of this encounter Care Teams Chief Airline Radio Operator Relationship Specialty Start Date End Date Eulalia Lema DO PCP - General 02/18/18 03/20/18 Dayna Maki MD PCP - General 03/21/18 12/21/20 Dayna Maki MD PCP - General Internal Medicine 12/22/20 12/22/20 Mj Lee MD [address] [place] [id number] PCP - General Internal Medicine 12/23/20 12/23/20 Dayna Maki MD [address] [place] [address] [place] [address] PCP - General 12/24/20 Dayna Maki MD 12/22/20 Eulalia Lema DO Resident - PCP Internal Medicine 02/15/18 documented as of this encounter
--- OUTSIDE RECORDS SUMMARY | 2024-09-02 10:13 | XMS_ITS | Clinical Summary ---
Author Organization [facility] Address [address] [place] [address] Phone Care Team Providers Care Field Account Manager Name Role Phone TAQUERIA CADENA, JOSE Benson Unavailable [phone] SAMSON JANG MD Unavailable [phone] Reason for Visit and Chief Complaint The Chief Complaint is: Follow up on C7-T1 Interlaminar epidural 03/21/2023 ~90% - 0 ongong Plan of Treatment No Plan of Treatment Recorded Assessments Includes: Assessments from this encounter Findings - Cervical spondylosis with radiculopathy [M47.22 - Other spondylosis with radiculopathy, cervical region] - Last Documented On 04/11/2023 2:21PM ; [facility] - Cervical spine stenosis [M48.02 - Spinal stenosis, cervical region] - Last Documented On 04/11/2023 2:21PM ; [facility] - Cervical radiculopathy [M54.12 - Radiculopathy, cervical region] - Last Documented On 04/11/2023 2:21PM ; [facility] - Myalgia and myositis [M79.18 - Myalgia, other site] - Last Documented On 04/11/2023 2:21PM ; [facility] Medical Equipment - Implanted Devices Includes: Current Devices No Medical Equipment Recorded Medications Includes: Medications discussed during this encounter and other current Medications Discontinued / Stopped on this date JOSE CADENA on 02/27/2023 ALPRAZolam 0.5 MG Oral Tablet Provider: JOSE CADENA Diagnosis: Last Documented On 3 1:28PM By Lenora CID ; [facility] predniSONE 50 MG Oral Tablet Provider: JOSE GOODEN Diagnosis: Spinal stenosis, cervical region Last Documented On 3 1:28PM By Lenora CID ; [facility] Topiramate 50 MG Oral Tablet Provider: SAMSON JANG MD Diagnosis: Last Documented On 3 1:28PM By Lenora CID ; [facility] New / Renewed during this visit JOSE CADENA on 04/11/2023 diphenhydrAMINE HCl 50 MG Oral Capsule Provider: JOSE CADENA 1 day supply: 1 capsule, 0 refills Diagnosis: Spinal stenosis, cervical region take 1 tablet by mouth 1 fredrick r prior to procedure Pharmacy: [address], [facility], [id number] - Last Documented On 06/21/2023 9:04AM By Snehal CID ; [facility] Diclofenac Sodium 75 MG Oral Tablet Delayed Release Provider: JOSE CADENA 30 day supply: 30 tablet, 0 refills Diagnosis: Spinal stenosis, cervical region One tablet dailystop ketoralac Pharmacy: [address], [facility], [id number] - Last Documented On 3 3:47PM By JOSE CADENA ; [facility] predniSONE 50 MG Oral Tablet Provider: JOSE CADENA 3 day supply: 3 tablet, 0 refills Diagnosis: Spinal stenosis, cervical region 1 po 13 hours prior to proce dure, 1 po 7 hours prior and 1 po 1 hour prior to procedure Pharmacy: [address], [facility], [id number] - Last Documented On 06/21/2023 9:04AM By Snehal CID ; [facility] ALPRAZolam 0.5 MG Oral Tablet Provider: JOSE CADENA 1 day supply: 2 tablet, 0 refills Diagnosis: Other spondylosis with radiculopathy, cervical region as directed 1 po 1 hour prio r to procedure, 1 po 30 minutes prior to procedure Pharmacy: [address], [facility], [id number] - Last Documented On 06/21/2023 9:03AM By Snehal CID ; [facility] Current Medications (continue as prescribed) Lidocaine 5% External Patch 09/20/2023 Provider: JOSE GOODEN Diagnosis: Spinal stenosis, cervical region as directed apply patch to a ffected area for 12 hours and remove for 12 hours Last Documented On 4 3:21PM By JOSE CADENA ; [facility] Varenicline Tartrate 1 MG Oral Tablet 06/20/2023 Pro vider: SAMSON JANG MD Diagnosis: Last Documented On 06/21/2023 9:05AM By Snehal CID ; [facility] Ketorolac Tromethamine 10 MG Oral Tablet 06/08/2023 Provider: SAMSON JANG MD Diagnosis: Last Documented On 06/21/2023 9:06AM By Snehal CID ; [facility] Latanoprost 0.005% Ophthalmic Solution 06/05/2023 Pr ovider: Diagnosis: Last Documented On 06/21/2023 9:05AM By Snehal CID ; [facility] QUEtiapine Fumarate 200 MG Oral Tablet 01/10/2023 Pr ovider: Diagnosis: AT BEDTIME Last Documented On 3 10:08AM By Snehal CID ; [facility] Melatonin 5 MG Oral Capsule 12/20/2022 Provider: Diagnosis: Last Documented On 3 11:26AM By Snehal CID ; [facility] Banophen 25 MG Oral Capsule 12/19/2022 Provider: SAMSON JANG MD Diagnosis: Last Documented On 3 11:22AM By Snehal CID ; [facility] Pregabalin 150 MG Oral Capsule 12/19/2022 Provider: SAMSON JANG MD Diagnosis: Last Documented On 3 11:23AM By Snehal CID ; [facility] QUEtiapine Fumarate 100 MG Oral Tablet 12/05/2022 Pr ovider: Diagnosis: Last Documented On 3 11:24AM By Snehal CID ; [facility] Ventolin HFA 108 (90 Base) M CG/ACT Inhalation Aerosol Solution 11/30/2022 Provider: SAMSON JANG MD Diagnosis: Last Documented On 3 11:25AM By Snehal CID ; [facility] hydroCHLOROthiazide 12.5 MG Oral Tablet 11/28/2022 P rovider: SAMSON JANG MD Diagnosis: Last Documented On 3 11:22AM By Snehal CID ; [facility] Dicyclomine HCl 20 MG Oral Tablet 11/27/2022 Provide r: SAMSON JANG MD Diagnosis: Last Documented On 3 11:23AM By Snehal CID ; [facility] Methocarbamol 750 MG Oral Tablet 11/24/2022 Provider : SAMSON JANG MD Diagnosis: Last Documented On 3 11:23AM By Snehal CID ; [facility] Atorvastatin Calcium 40 MG Oral Tablet 11/24/2022 Pr ovider: SAMSON JANG MD Diagnosis: Last Documented On 3 11:23AM By Snehal CID ; [facility] Candesartan Cilexetil 32 MG Oral Tablet 11/20/2022 P rovider: SAMSON JANG MD Diagnosis: Last Documented On 3 11:22AM By Snehal CID ; [facility] Medications Administered Includes: Administered Medications from this encounter No Administered Medications Recorded Vital Signs Includes: Vital Signs from this encounter Vital Name 04/11/2023 01:29P Blood Pressure Sitting R 112/78 BP Cuff Size Regular Pulse Rate-Sitting (bpm) 78 Temp-Oral (F) 97.8 Height (in) 64 Weight (lb) 185 Body Mass Index 31.8 Body Surface Area 1.9 Pain Level 10 Oxygen Saturation (%) 99 Last Documented: On 04/11/2023 1:30PM ; [facility] Results Includes: Results discussed during this encounter [...] hand - Last drug screen appropriate N/A Discussion: Patient returns in follow-up to a leftward [...] aspect of daily living. She has a certified home health aide help with cooking and self care. She [...] severe neural foraminal stenosis unremarkable C6-7, C7-T1 Social History Description Last Updated Former smoker 04/11/2023 Last Documented On 3 2:21PM ; [facility] No consumption of alcohol 04/11/2023 Last Documented On 3 2:21PM ; [facility] Not using drugs 04/11/2023 Last Documented On 3 2:21PM ; [facility] Difficulty walking 12/20/2022 Last Documented On 3 1:24PM ; [facility] Smoking packs of cigarettes per day 1 Last Documented On 3 1:24PM ; [facility] Smoking Status Unknown Procedures and Surgical History Includes: Procedures from this encounter Procedures Code Diagnosis Performing Provider Service L ocation Service Date surgery Last Documented On 3 1:25PM ; [facility] administered injection of tr igger point(s), three or more muscle groups : Informed consent-The procedure was described in detail to the patient. Risks explained included possible infection, bleeding, or allergic reaction to medication. The patient has also had an explanation of the side effects of corticosteroid. Allergies confirmed. The patient has had an opportunity to have all questions answered both on the day of initial consultation and again today. The patient wishes to proceed and has signed a procedure specific consent form. ~~DESCRIPTION OF PROCEDURE: The patient assumed a seated position. By palpation, left cervical splenii, levator scapula, trapezius, rhomboid. trigger points were identified and marked with a sterile skin marker. Area(s) were cleaned with a betasept/alcohol solution. A 27 gauge, 1.5-inch needle was advanced toward each trigger point until pain was reproduced or muscle twitch elicited. After negative aspiration for blood, 0.5 - 1 ml of a solution containing 10mg Kenalog mixed with 0.5% Bupivicaine was injected in a fanned-out distribution at each trigger point, for a total volume of _4___ mL being given. Sterile bandages were placed over the injection sites.The patient appeared to tolerate the procedure well. ~~DISPOSITION: The patient is discharged home in good condition after a 10-minute period of observation with stable vital signs. ~ ~ Last Documented On 3 1:25PM ; [facility] use of tobacco assessment performed 1000F Last Documented On 3 1:25PM ; [facility] standardized depression screening: negative for symptoms 3351F Last Documented On 3 1:25PM ; [facility] review of medications documented 1160F Last Documented On 3 1:25PM ; [facility] screening for adult depression: impressi on and score 0 Last Documented On 3 1:25PM ; [facility] Clinical summary provided to patient ~ Patient understands and agrees with treatment plan. Questions answered Last Documented On 3 1:25PM ; [facility] SOAPP-R: total score 3 Last Documented On 3 1:25PM ; [facility] Surgical History Last Updated No Pacemaker 04/11/2023 Last Documented On 3 2:21PM ; [facility] Medical History Includes: Medical History addressed during this encounter Description Last Updated Denies a fear of falling. 04/11/2023 Last Documented On 3 2:21PM ; [facility] Has had no fall in the last 12 months. 0 04/11/2023 Last Documented On 3 2:21PM ; [facility] CT/MRI September 2022neckGRMCshoulderFeb 202 [facility] 04/11/2023 Last Documented On 3 2:21PM ; [facility] Currently wearing eyeglasses 04/11/2023 Last Documented On 3 2:21PM ; [facility] Injection/Nerve blocks 04/11/2023 Last Documented On 3 2:21PM ; [facility] Message/Acupressure 04/11/2023 Last Documented On 3 2:21PM ; [facility] No Pain Pump 04/11/2023 Last Documented On 3 2:21PM ; [facility] No Spinal cord stimulator 04/11/2023 Last Documented On 3 2:21PM ; [facility] Pain Clinic 04/11/2023 Last Documented On 3 2:21PM ; [facility] Physical therapy 04/11/2023 Last Documented On 3 2:21PM ; [facility] Please list all illnesses/co nditions you have been diagnosed with: HPTN; peripheral vascular disease; high cholesterol; restricted breathing disorder; lung stone; seizures; allergies; depression 04/11/2023 Last Documented On 3 2:21PM ; [facility] Please list all surgeries: November neck surgerygallbladder removal 2020hysterectomy 2001appendectomy 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 on R femur removed 199804/11/2023 Last Documented On 3 2:21PM ; [facility] Severe Pain 04/11/2023 Last Documented On 3 2:21PM ; [facility] Treatment with TENS unit 04/11/2023 Last Documented On 3 2:21PM ; [facility] Last Documented On 3 2:21PM ; [facility] Family History Includes: Family History addressed during this encounter Description Last Updated Maternal history of family history of is chemic heart disease 04/11/2023 Last Documented On 3 2:21PM ; [facility] Maternal history of family history of ki dney disease 04/11/2023 Last Documented On 3 2:21PM ; [facility] Review of Systems Includes: Review of Systems from this encounter Systemic: No systemic symptoms other than noted. Head: No head symptoms other then noted. Neck: Neck pain. Eyes: Blurry vision. Cardiovascular: No chest pain or discomfort. Cold hands or feet. Pulmonary: No dyspnea. Dyspnea. Gastrointestinal: Heartburn. No nausea and no constipation. Genitourinary: No urinary loss of control. Endocrine: No endocrine symptoms other than noted. Muscle weakness and Weakness. Hematologic: No easy bleeding and no tendency for easy bruising. A tendency for easy bruising. Musculoskeletal: No musculoskeletal symptoms other than noted. Back pain, muscle aches, pain localized to one or more joints, and joint stiffness localized to one or more joints. Neurological: No motor disturbances and no sensory disturbances. Numbness. Psychological: No psychological symptoms other than noted. Insomnia. Skin: No skin symptoms other than noted. A skin wound is slow to heal. Mental Status Includes: Mental Status from this encounter No Mental Status Recorded Functional Status Includes: Functional Status from this encounter No Functional Status Recorded Physical Exam Includes: Physical Exam from this encounter Allergies Includes: Active Allergies Substance Type Reaction Onset Date Resolved Date Statu s Shellfish Allergy 12/20/2022 Active Last Documented On 4 2:44PM ; [facility] NSAIDs Allergy 12/20/2022 Active Last Documented On 4 2:44PM ; [facility] Meloxicam Allergy 12/20/2022 Active Last Documented On 4 2:44PM ; [facility] Effexor XR Allergy 12/20/2022 Active Last Documented On 4 2:44PM ; [facility] Contrast Dye Allergy 12/20/2022 Active Last Documented On 4 2:44PM ; [facility] Note: THROAT CLOSES AND STOPS BREATHING Aspirin Allergy 12/20/2022 Active Last Documented On 4 2:44PM ; [facility] Encounters Encounter Provider Location Date Check-In Time Check-Out Time Diagnosis PAIN MANAGEMENT FOLLOW UP JOSE CADENA [facility] 04/11/20 23 1:11PM 1:52PM Spinal Stenosis Cervical,Myalgia and Myositis,Cervica l Radiculopathy,Sp ondylosis with Radiculopathy Cervical Region Insurance Includes: Active Insurance Policies Plan Name Member ID Group # Subscriber Relationship Effect aust[place] Dates - [facility] [id number] UZMA SOSA Se lf Clinical Notes Includes: Clinical Notes from this encounter * Progress note Date Encounter Last Documented by 04/11/2023 PAIN MANAGEMENT FOLLOW UP Last d ocumented on 04/11/2023; 2:21 PM, JOSE CADENA; [facility] Chief Complaint The Chief Complaint is: Follow up on C7-T1 Interlaminar epidural 03/21/2023 90% - 0 ongong. History of Present Illness - Allergy list [...] hand - Last drug screen appropriate N/A Discussion: Patient returns in follow-up to a leftward [...] aspect of daily living. She has a certified home health aide help with cooking and self care. She [...] all surgeries: 2015 neck surgerygallbladder removal 2020hysterectomy 2001appendectomy 1999bone tumor on R femur removed 1998. Medical: Currently wearing eyeglasses and orthopedic history Left Knee Score mild pain Severe Pain. No Spinal cord stimulator and no Pain Pump. Surgical / Procedural: No Pacemaker. [facility] September 20[facility]. Physical Trauma: Has had no [...] a day 30 days, 0 refills - diphenhydrAMINE HCl 50 MG Oral Capsule take 1 tablet by mouth 1 hour prior to procedure, 1 days, 0 refills - Doxepin HCl 25 MG Oral Capsule One tablet daily 30 days, 0 refills - hydroCHLOROthiazide 12.5 MG Oral Tablet One tablet daily 30 days, 0 refills - Ketorolac Tromethamine 10 MG Oral Tablet as needed 5 days, 0 refills - Ketorolac Tromethamine 10 MG Oral Tablet One tablet daily 5 days, 0 refills - Lidocaine 5% External Patch as directed apply patch to affected area for 12 hours and remove for 12 hours, 30 days, 2 refills - Methocarbamol 750 MG Oral Tablet One tablet three times a day 30 days, 0 refills - Montelukast Sodium 10 MG Oral Tablet One tablet daily 30 days, 0 refills - Pregabalin 150 MG Oral Capsule One tablet twice a day 30 days, 0 refills - QUEtiapine Fumarate 100 MG Oral Tablet One tablet at bed time 30 days, 0 refills - QUEtiapine Fumarate 200 MG Oral Tablet 2 once a day AT BEDTIME, 30 days, 0 refills - Ventolin HFA 108 (90 Base) MCG/ACT Inhalation Aerosol Solution as directed 25 days, 0 refills Social History Difficulty walking. Tobacco use: Smoking packs of cigarettes per day 1 and former smoker. Alcohol: No consumption of alcohol. Drug Use: Not using drugs. Allergies - Aspirin - Contrast Dye - Effexor XR - Meloxicam - NSAIDs - Shellfish Family History Maternal: Ischemic heart disease Kidney disease Review Of Systems Systemic: No systemic symptoms other than noted. Head: No head symptoms other then noted. Neck: Neck pain. Eyes: Blurry vision. Cardiovascular: No chest pain or discomfort. Cold hands or feet. Pulmonary: No dyspnea. Dyspnea. Gastrointestinal: Heartburn. No nausea and no constipation. Genitourinary: No urinary loss of control. Endocrine: No endocrine symptoms other than noted. Muscle weakness and Weakness. Hematologic: No easy bleeding and no tendency for easy bruising. A tendency for easy bruising. Musculoskeletal: No musculoskeletal symptoms other than noted. Back pain, muscle aches, pain localized to one or more joints, and joint stiffness localized to one or more joints. Neurological: No motor disturbances and no sensory disturbances. Numbness. Psychological: No psychological symptoms other than noted. Insomnia. Skin: No skin symptoms other than noted. A skin wound is slow to heal. Physical Findings - Vitals taken 04/11/2023 01:29 pm BP-Sitting R 112/78 mmHg BP Cuff Size Regular Pulse Rate-Sitting 78 bpm Temp-Oral 97.8 F Height 64 in Weight 185 lbs Body Mass Index 31.8 kg/m2 Body Surface Area 1.9 m2 Pain Level 10 Pain Level Note Cervical Oxygen Saturation 99 % Musculoskeletal System: General/bilateral: Musculoskeletal Scales: Value Lumbar oswestry score 62 Psychiatric: Psychiatric: Value PHQ9 score: 0 Constitutional: Well developed. Well nourished. In no acute distress. HEENT: NC/AT. Anicteric. Clear Conjunctiva. PERRLA. MM's pink/moist. No discharge via nares. No lymphadenopathy CVS: No peripheral edema. Peripheral pulses palpable in all extremities. Pulmonary: Normal chest expansion bilaterally. Spine/MSK: Tenderness left cervical and upper thoracic paraspinals. Tenderness left scalene muscles. Tenderness bilateral cervical facet joints. Decreased cervical range of motion. kyphotic posture. Positive spurling's on left, mild Gait: Not antalgic. No steppage gait. No Trendelenburg gait. No circumspected gait pattern. Heel walk normal. Toe walk normal. Tandem gait normal. Neuro: Awake. Alert. Oriented x3. DTR's absent left brachioradialis left, otherwise normal. Hypoesthesia left upper extremity C5/6 dermatome, C6/7 dermatome in hand. Element Burner strength decreased on left. Psych: No apparent distress. Mood normal. Affect normal. No pain behaviors. Skin: No rash. Normal pigmentation. Normal temperature Tests Educational Testing: Questionnaires PHQ-9: Value SOAPP-R: total score 3 Assessment - Cervical spondylosis with radiculopathy [M47.22 - Other spondylosis with radiculopathy, cervical region] - Cervical spine stenosis [M48.02 - Spinal stenosis, cervical region] - Cervical radiculopathy [M54.12 - Radiculopathy, cervical region] - Myalgia and myositis [M79.18 - Myalgia, other site] Therapy - Surgery. - Clinical summary provided to patient Patient understands and agrees with treatment plan. Questions answered. Discussed Risks, benefits and alternatives (including doing nothing) were discussed with the patient who agreed to proceed despite risk and agreement that potential benefits outweighs the chance of significant harm. Does not use ASA Patient reports allergy to IV contrast. She has tolerated injections with contrast with preprocedure Benadryl treatment and recently tolerated injections with pre procedure treatment. Continue stop Ketoralac and utilize diclofenac once per day. Hopeful this is a short term RX. May try Voltaren gel topically in place of oral diclofenac. Recommend repeat cervical epidural. Follow-up post procedure Plan StartCited - Other spondylosis with radiculopathy, cervical region ALPRAZolam 0.5 MG tablet as directed 1 po 1 hour prior to procedure, 1 po 30 minutes prior to procedure, 1 days, 0 refills EndCited StartCited - Spinal stenosis, cervical region Pain Management CPT/Epidural Steroid Inj: Interlaminar, Cervical or Thoracic Instructions: consent for C7-T1 interlaminar epidural *requires pre procedure treatment for dye allergy and xanax Diclofenac Sodium 75 MG tablet One tablet dailystop ketoralac, 30 days, 0 refills diphenhydrAMINE HCl 50 MG capsule take 1 tablet by mouth 1 hour prior to procedure, 1 days, 0 refills predniSONE 50 MG tablet 1 po 13 hours prior to procedure, 1 po 7 hours prior and 1 po 1 hour prior to procedure, 3 days, 0 refills EndCited Practice Management Use of tobacco assessment performed Review of medications documented; Standardized depression screening: negative for symptoms and for adult impression and score 0. A total of [30 ] minutes were spent on this patient's evaluation, as above, with greater than 50% of this time spent in direct [id number] counseling and coordination of care. Results of this interaction were communicated directly [...] but may be subject to typographical or geospatial information scientist errors. Verify all diagnoses, medications, dosages, and patient instructions with patient and/or the originator of this document. Care Team - ADALBERTO WORKMAN- - Pain Management - SAMSON JANG MD Health Reminders - Assess BMI satisfied 04/11/2023. - Assess Tobacco Use satisfied 04/11/2023. - Depression Screening satisfied 04/11/2023. - Follow up plan for Depression Screening satisfied 04/11/2023. User Defined 1 Administered injection of trigger point(s), three or more muscle groups: Informed consent-The procedure was described in detail to the patient. Risks explained included possible infection, bleeding, or allergic reaction to medication. The patient has also had an explanation of the side effects of corticosteroid. Allergies confirmed. The patient has had an opportunity to have all questions answered both on the day of initial consultation and again today. The patient wishes to proceed and has signed a procedure specific consent form. ~DESCRIPTION OF PROCEDURE: The patient assumed a seated position. By palpation, left cervical splenii, levator scapula, trapezius, rhomboid. trigger points were identified and marked with a sterile skin marker. Area(s) were cleaned with a betasept/alcohol solution. A 27 gauge, 1.5- inch needle was advanced toward each trigger point until pain was reproduced or muscle twitch elicited. After negative aspiration for blood, 0.5 - 1 ml of a solution containing 10mg Kenalog mixed with 0.5% Bupivicaine was injected in a fanned-out distribution at each trigger point, for a total volume of _4___ mL being given. Sterile bandages were placed over the injection sites.The patient appeared to tolerate the procedure well. ~DISPOSITION: The patient is discharged home in good condition after a 10-minute period of observation with stable vital signs. .
--- OUTSIDE RECORDS SUMMARY | 2024-09-02 10:13 | XMS_ITS | Patient Health Summary ---
Author Organization [facility] Address [address] [place] [address] Care Team Providers Care Field Captain Name Role Phone Dayna Maki MD Unavailable [phone] Eulalia Lema DO Unavailable [phone] Dayna Maki MD Primary Care Provider Note from [facility],non-owned Affiliates and Associated Physician Practices is amultiple site organization consisting of ambulatory clinics and hospital sitesin [place], [place], [place] and [place]. This disclosure is being madepursuant to the Care Everywhere program and may not contain all information available regarding this patient. Last updated 18.[facility] Allergies * Aspirin(Unknown) * Aspirin(Anaphylaxis,Unknown) -High Criticality * Venlafaxine(Other) -High Criticality * Venlafaxine(Vomiting) * Fish Oil(Unknown) * Contrast-Iodinated Agents For Ct/Other(Anaphylaxis) -High Criticality * Meloxicam(Anaphylaxis) -High Criticality * Meloxicam(Anaphylaxis) -High Criticality * Nsaids(Anaphylaxis) -High Criticality * Nsaids(Other) * Fish Oil(Anaphylaxis) -High Criticality * Shellfish Allergy(Anaphylaxis,Unknown) -High Criticality * Shellfish Allergy(Anaphylaxis) -High Criticality Medications * Be aware that medications may not be up to date on this document. Alwaysverify current medications with the patient. * traZODone (DESYREL) 100 MG tablet Take 100 mg by mouth at bedtime * acetaminophen (TYLENOL) 500 MG tablet Take 1,000 mg by mouth every 6 hours as needed for Fever or Pain Maximum allowable Acetaminophen amount = 4 Grams (4000 mg) / 24 hours. * cyclobenzaprine (FLEXERIL) 10 MG tablet Take 10 mg by mouth 2 times daily * zolpidem CR (AMBIEN CR) 12.5 MG tablet Take 12.5 mg by mouth nightly as needed for Insomnia * candesartan (ATACAND) 16 MG tablet Take 16 mg by mouth once daily * Lumateperone Tosylate (CAPLYTA) 42 MG CAPS Take 42 mg by mouth once daily * hydroCHLOROthiazide (HYDRODIURIL) 25 MG tablet Take 25 mg by mouth once daily * DULoxetine (CYMBALTA) 60 MG capsule Take 60 mg by mouth once daily Active Problems Problem Noted Date Diagnosed Date Cerebrovascular accident (CVA) 12/22/2020 Seizures 09/02/2020 Numbness and tingling of both feet 04/03/2018 Leg cramps 04/03/2018 Falls 04/03/2018 Chronic narcotic dependence 02/14/2018 History of drug abuse 02/14/2018 Tobacco abuse 02/14/2018 Joint swelling 02/14/2018 Schizoaffective disorder 01/21/2018 CKD (chronic kidney disease) stage 3, GFR 30-59 ml/min 01/21/2018 Anxiety 01/21/2018 Neuropathy 01/21/2018 Chronic obstructive pulmonary disease 07/11/2016 Positive SUMMER (antinuclear antibody) 07/11/2016 Myalgia 07/11/2016 Insomnia 07/11/2016 Arthralgia 07/11/2016 Immunizations * FLU VACCINE QUAD IIV4 SPLIT 0.25 ML IM(Given 04/06/2016, 04/26/2015) * INFLUENZA VACCINE(Given 04/22/2015) * PNEUMOCOCCAL PPSV23(Given 12/16/2015) * TDAP (7yrs+)(Given 05/11/2016) Social History Tobacco Use Types Packs/Day Years Used Date Smoking Tobacco: Every Day Cigarettes 1 37 Smokeless Tobacco: Never Tobacco Cessation:Ready to Q uit: Yes; Counseling Given: Yes Comments:has already been trying; smoking since 16 years of age Alcohol Use Standard Drinks/Week Comments Not Currently 0 (1 standard drink = 0.6 oz pur e alcohol) Sex and Gender Information Value Date Recorded Sex Assigned at Not on file Gender Identity Not on file Sexual Orientation Not on file Last Filed Vital Signs Vital Sign Reading Time Taken Comments Blood Pressure 143/85 12/23/2020 10:00 AM CDT Pulse 73 12/23/2020 10:00 AM CDT Temperature 36.7 C (98 F) 12/23/2020 8:00 AM CDT Respiratory Rate 12 12/23/2020 10:00 AM CDT Oxygen Saturation 99% 12/23/2020 10:00 AM CDT Inhaled Oxygen Concentration - - Weight 75 kg (165 lb 5.5 oz) 12/22/2020 9:30 PM CDT Height 162.6 cm (5' 4 ) 12/22/2020 9:30 PM CDT Body Mass Index 28.38 12/22/2020 9:30 PM CDT Procedures * CARDIAC EKG ORDER(Performed 12/24/2020) * ECHO COMPLETE W BUBBLE STUDY(Performed 12/23/2020) Performed for Weakness * GLUCOSE - POINT OF CARE(Performed 12/23/2020) * TROPONIN I(Performed 12/23/2020) * GLUCOSE - POINT OF CARE(Performed 12/22/2020) * URINE DRUG SCREEN IMMUNOASSAY(Performed 12/22/2020) * URINALYSIS REFLEX TO MICROSCOPIC NO CULTURE(Performed 12/22/2020) * BLOOD TYPE VERIFICATION(Performed 12/22/2020) * PHOSPHORUS BLOOD(Performed 12/22/2020) * MAGNESIUM BLOOD(Performed 12/22/2020) * TROPONIN I(Performed 12/22/2020) * LIPID PROFILE(Performed 12/22/2020) * HEMOGLOBIN A1C(Performed 12/22/2020) * MRI BRAIN WO CONTRAST(Performed 12/22/2020) Performed for Weakness * EKG 12-LEAD(Performed 12/22/2020) Performed for Weakness * SARS-COV-2 (COVID-19)+INFLU A+B PCR RAPID(Performed 12/22/2020) Performed for Weakness * CBC W AUTO DIFFERENTIAL(Performed 12/22/2020) * XR CHEST 1VW PORTABLE(Performed 12/22/2020) Performed for Weakness * TYPE + SCREEN PANEL(Performed 12/22/2020) * TROPONIN I(Performed 12/22/2020) * TROPONIN I(Performed 12/22/2020) * PT-INR SLH(Performed 12/22/2020) * COMPREHENSIVE METABOLIC PANEL(Performed 12/22/2020) * CT ANGIO BRAIN NECK STROKE(Performed 12/22/2020) Performed for Weakness * CT BRAIN STROKE(Performed 12/22/2020) Performed for Weakness * CARDIAC RHYTHM STRIP ORDER(Performed 09/06/2020) * T3 TOTAL(Performed 09/04/2020) * TSH REFLEX FREE T4(Performed 09/04/2020) * CBC W AUTO DIFFERENTIAL(Performed 09/04/2020) * AMMONIA(Performed 09/04/2020) * FOLATE(Performed 09/04/2020) * VITAMIN B12(Performed 09/04/2020) * T4 FREE DIRECT REFLEXED(Performed 09/03/2020) * TSH REFLEX FREE T4(Performed 09/03/2020) * PHOSPHORUS BLOOD(Performed 09/03/2020) * MAGNESIUM BLOOD(Performed 09/03/2020) * COMPREHENSIVE METABOLIC PANEL(Performed 09/03/2020) * CBC W AUTO DIFFERENTIAL(Performed 09/03/2020) * TAMIE STAINING PATTERNS REFLEXED(Performed 02/22/2018) Performed for Chronic obstructive pulmonary disease, unspecified COPD type (HCC), Positive SUMMER (antinuclear antibody), Myalgia, Schizoaffective disorder, unspecified type (HCC), CKD (chronic kidney disease) stage 3, GFR 30-59 ml/min (HCC), Anxiety, Neuropathy, Chronic narcotic dependence (HCC), History of drug abuse (HCC), Tobacco abuse, Joint swelling * TSH(Performed 02/22/2018) Performed for Chronic obstructive pulmonary disease, unspecified COPD type (HCC), Positive SUMMER (antinuclear antibody), Myalgia, Schizoaffective disorder, unspecified type (HCC), CKD (chronic kidney disease) stage 3, GFR 30-59 ml/min (HCC), Anxiety, Neuropathy, Chronic narcotic dependence (HCC), History of drug abuse (HCC), Tobacco abuse, Joint swelling * VITAMIN B12(Performed 02/22/2018) Performed for Chronic obstructive pulmonary disease, unspecified COPD type (HCC), Positive SUMMER (antinuclear antibody), Myalgia, Schizoaffective disorder, unspecified type (HCC), CKD (chronic kidney disease) stage 3, GFR 30-59 ml/min (HCC), Anxiety, Neuropathy, Chronic narcotic dependence (HCC), History of drug abuse (HCC), Tobacco abuse, Joint swelling * HIV-1 HIV-2 ANTIGEN/ANTIBODY(Performed 02/22/2018) Performed for Chronic obstructive pulmonary disease, unspecified COPD type (HCC), Positive SUMMER (antinuclear antibody), Myalgia, Schizoaffective disorder, unspecified type (HCC), CKD (chronic kidney disease) stage 3, GFR 30-59 ml/min (HCC), Anxiety, Neuropathy, Chronic narcotic dependence (HCC), History of drug abuse (HCC), Tobacco abuse, Joint swelling * RHEUMATOID FACTOR BLOOD QUANTITATIVE(Performed 02/22/2018) Performed for Chronic obstructive pulmonary disease, unspecified COPD type (HCC), Positive SUMMER (antinuclear antibody), Myalgia, Schizoaffective disorder, unspecified type (HCC), CKD (chronic kidney disease) stage 3, GFR 30-59 ml/min (HCC), Anxiety, Neuropathy, Chronic narcotic dependence (HCC), History of drug abuse (HCC), Tobacco abuse, Joint swelling * COMPREHENSIVE METABOLIC PANEL(Performed 02/22/2018) Performed for Chronic obstructive pulmonary disease, unspecified COPD type (HCC), Positive SUMMER (antinuclear antibody), Myalgia, Schizoaffective disorder, unspecified type (HCC), CKD (chronic kidney disease) stage 3, GFR 30-59 ml/min (HCC), Anxiety, Neuropathy, Chronic narcotic dependence (HCC), History of drug abuse (HCC), Tobacco abuse, Joint swelling * CBC W AUTO DIFFERENTIAL(Performed 02/22/2018) Performed for Chronic obstructive pulmonary disease, unspecified COPD type (HCC), Positive SUMMER (antinuclear antibody), Myalgia, Schizoaffective disorder, unspecified type (HCC), CKD (chronic kidney disease) stage 3, GFR 30-59 ml/min (HCC), Anxiety, Neuropathy, Chronic narcotic dependence (HCC), History of drug abuse (HCC), Tobacco abuse, Joint swelling * SUMMER BLOOD SCREEN W/REFLEX TITER(Performed 02/22/2018) Performed for Chronic obstructive pulmonary disease, unspecified COPD type (HCC), Positive SUMMER (antinuclear antibody), Myalgia, Schizoaffective disorder, unspecified type (HCC), CKD (chronic kidney disease) stage 3, GFR 30-59 ml/min (HCC), Anxiety, Neuropathy, Chronic narcotic dependence (HCC), History of drug abuse (HCC), Tobacco abuse, Joint swelling * CARTON MACHINE OPERATOR ANTIBODY(Performed 02/22/2018) Performed for Chronic obstructive pulmonary disease, unspecified COPD type (HCC), Positive SUMMER (antinuclear antibody), Myalgia, Schizoaffective disorder, unspecified type (HCC), CKD (chronic kidney disease) stage 3, GFR 30-59 ml/min (HCC), Anxiety, Neuropathy, Chronic narcotic dependence (HCC), History of drug abuse (HCC), Tobacco abuse, Joint swelling * SS-B (SJOGREN'S) ANTIBODY(Performed 02/22/2018) Performed for Chronic obstructive pulmonary disease, unspecified COPD type (HCC), Positive SUMMER (antinuclear antibody), Myalgia, Schizoaffective disorder, unspecified type (HCC), CKD (chronic kidney disease) stage 3, GFR 30-59 ml/min (HCC), Anxiety, Neuropathy, Chronic narcotic dependence (HCC), History of drug abuse (HCC), Tobacco abuse, Joint swelling * SS-A (SJOGREN'S) ANTIBODY(Performed 02/22/2018) Performed for Chronic obstructive pulmonary disease, unspecified COPD type (HCC), Positive SUMMER (antinuclear antibody), Myalgia, Schizoaffective disorder, unspecified type (HCC), CKD (chronic kidney disease) stage 3, GFR 30-59 ml/min (HCC), Anxiety, Neuropathy, Chronic narcotic dependence (HCC), History of drug abuse (HCC), Tobacco abuse, Joint swelling * DNA (DS) ANTIBODY RFLEX IFA(Performed 02/22/2018) Performed for Chronic obstructive pulmonary disease, unspecified COPD type (HCC), Positive SUMMER (antinuclear antibody), Myalgia, Schizoaffective disorder, unspecified type (HCC), CKD (chronic kidney disease) stage 3, GFR 30-59 ml/min (HCC), Anxiety, Neuropathy, Chronic narcotic dependence (HCC), History of drug abuse (HCC), Tobacco abuse, Joint swelling * LUPUS ANTICOAGULANT PANEL(Performed 02/22/2018) Performed for Chronic obstructive pulmonary disease, unspecified COPD type (HCC), Positive SUMMER (antinuclear antibody), Myalgia, Schizoaffective disorder, unspecified type (HCC), CKD (chronic kidney disease) stage 3, GFR 30-59 ml/min (HCC), Anxiety, Neuropathy, Chronic narcotic dependence (HCC), History of drug abuse (HCC), Tobacco abuse, Joint swelling * OCCULT BLOOD FECES - POINT OF CARE (IP)(Performed 02/22/2018) Performed for Black stool * HEMOGLOBIN A1C - POINT OF CARE (AMB) [facility](Performed 02/13/2018) Performed for Screening for diabetes mellitus * LIPID PROFILE - POINT OF CARE (AMB) [facility](Performed 01/21/2018) Performed for BMI 30.0-30.9,adult * HEMOGLOBIN A1C - POINT OF CARE (AMB) [facility](Performed 01/21/2018) Performed for BMI 30.0-30.9,adult * LAB HISTORICAL RESULTS-ONBASE(Performed 01/31/2017) * LAB HISTORICAL RESULTS-ONBASE(Performed 01/30/2017) * LAB HISTORICAL RESULTS-ONBASE(Performed 01/30/2017) * LAB HISTORICAL RESULTS-ONBASE(Performed 01/29/2017) * LAB HISTORICAL RESULTS-ONBASE(Performed 01/26/2017) * HISTONE ANTIBODY(Performed 07/19/2016) * DNA ANTIBODY DS CRITHIDIA TITER(Performed 07/19/2016) * COMPLEMENT TOTAL(Performed 07/19/2016) * ALDOLASE(Performed 07/19/2016) * CHROMATIN ANTIBODY(Performed 07/19/2016) * CYCLIC CITRULLINATED PEPTIDE(CCP) AB IGG(Performed 07/19/2016) * HEPATITIS B SURFACE ANTIGEN W RFLX CONFIRMATION(Performed 07/19/2016) * HEPATITIS C ANTIBODY(Performed 07/19/2016) * RHEUMATOID FACTOR BLOOD QUANTITATIVE(Performed 07/19/2016) * C-REACTIVE PROTEIN(Performed 07/19/2016) * TAMIE STAINING PATTERNS REFLEXED(Performed 07/19/2016) * SUMMER BLOOD SCREEN W/REFLEX TITER(Performed 07/19/2016) * THYROGLOBULIN ANTIBODY(Performed 07/19/2016) * THYROID PEROXIDASE ANTIBODY(Performed 07/19/2016) * XR HAND RIGHT 2VW(Performed 07/19/2016) * XR WRIST LEFT 2VW(Performed 07/19/2016) * XR KNEE RIGHT 3VW(Performed 07/19/2016) * XR WRIST RIGHT 2VW(Performed 07/19/2016) * XR ANKLE LEFT 2VW(Performed 07/19/2016) * XR ANKLE RIGHT 2VW(Performed 07/19/2016) * XR HAND LEFT 2VW(Performed 07/19/2016) * XR KNEE LEFT 3VW(Performed 07/19/2016) * PEREZ (SM) ANTIBODY KAI(Performed 07/19/2016) * SS-B (SJOGREN'S) ANTIBODY(Performed 07/19/2016) * SS-A (SJOGREN'S) ANTIBODY(Performed 07/19/2016) * SCLERODERMA 70 (SCL) ANTIBODY(Performed 07/19/2016) * CARTON MACHINE OPERATOR ANTIBODY(Performed 07/19/2016) * CARDIOLIPIN ANTIBODY IGM(Performed 07/19/2016) * CARDIOLIPIN ANTIBODY IGG(Performed 07/19/2016) * CARDIOLIPIN ANTIBODY IGA(Performed 07/19/2016) * BETA-2 GLYCOPROTEIN 1 ANTIBODY IGM(Performed 07/19/2016) * BETA-2 GLYCOPROTEIN 1 ANTIBODY IGG(Performed 07/19/2016) * BETA-2 GLYCOPROTEIN 1 ANTIBODY IGA(Performed 07/19/2016) * COMPLEMENT C4(Performed 07/19/2016) * COMPLEMENT C3(Performed 07/19/2016) * LUPUS ANTICOAGULANT PANEL(Performed 07/19/2016) * T4 FREE(Performed 07/19/2016) * TSH(Performed 07/19/2016) * ERYTHROCYTE SEDIMENTATION RATE(Performed 07/19/2016) * COMPREHENSIVE METABOLIC PANEL(Performed 07/19/2016) * URIC ACID BLOOD(Performed 07/19/2016) * CK BLOOD(Performed 07/19/2016) * URINALYSIS W/MICROSCOPIC NO CULTURE(Performed 07/19/2016) * CBC W/O DIFFERENTIAL(Performed 07/19/2016) * LAB HISTORICAL RESULTS-ONBASE(Performed 06/28/2016) * GROSS + MICRO EXAM(Performed 06/07/2001) Results * CARDIAC EKG ORDER (12/24/2020 1:53 PM CDT) Narrative 12/24/2020 1:53 PM CDT Ordered by an unspecified provider. Scanned Document CARDIAC SERVICES ORD ERABLES * ECHO COMPLETE W BUBBLE STUDY (12/23/2020 9:09 AM CDT) Anatomical Region Laterality Modality Chest Echo 12/23/2020 8:07 AM CDT Narrative Procedure Note Rebekah Stewart MD - 12/23/2020 Sung Ledezma MD ECHOCARDIOGRAPHY RAD IANT * GLUCOSE - POINT OF CARE (12/23/2020 4:04 AM CDT) Only the most recent of2 resultswithin the time period is included. Glucose WB/POC 111 70 - 115 mg/dL 12/23/2020 4:09 AM CDT [facility] Specimen Type Arterial/C apillary 12/23/2020 4:09 AM CDT [facility] Blood BLOOD SPECIMEN / Unknown 12/23/2020 4:04 AM CDT 12/23/2020 4:09 AM CDT Sung Ledezma MD LAB - POINT OF CARE ORDERABLES Performing Organization Address [facility]/ZIP Co de Phone Number [address] [address], [facility] [phone] * TROPONIN I (12/23/2020 12:10 AM CDT) Only the most recent of4 resultswithin the time period is included. Troponin I <0.010 <0.032 ng/mL 12/23/2020 12:44 AM CDT [facility] Blood BLOOD SPECIMEN / Unknown Venipuncture / Unknown 12/23/2020 12:10 AM CDT 12/23/2020 12:13 AM CDT Sima Aguirre MD LAB - CHEMISTRY MARU MARTINEZ [address] [address], [place] [phone] * (ABNORMAL) URINALYSIS REFLEX TO MICROSCOPIC NO CULTURE (12/22/2020 10:02 PM CDT) Color UA Yellow Straw, Yellow 12/22/2020 10:24 PM CDT [facility] Clarity UA Slt Cloudy(A) Clear 12/22/2020 10:24 PM CDT [facility] Specific [place] UA 1.039(H) 1.005 - 1.030 12/22/2020 10:24 PM [facility] pH UA 5.0 5.0 - 8.0 pH 12/22/2020 10:24 PM [facility] Protein UA Negative Negative 12/22/2020 10:24 PM [facility] Glucose UA Negative Negative 12/22/2020 10:24 PM [facility] Ketone UA Negative Negative 12/22/2020 10:24 PM [facility] Bilirubin UA Negative Negative 12/22/2020 10:24 PM [facility] Blood UA Negative Negative 12/22/2020 10:24 PM [facility] Nitrite UA Negative Negative 12/22/2020 10:24 PM [facility] Leukocyte Esterase 2+(A) Negative 12/22/2020 10:24 PM [facility] Urobilinogen UA Negative Negative mg/dL 12/22/2020 10:24 PM [facility] RBC UA 3-5 None Seen, 0-2, 3-5 /HPF 12/22/2020 10:24 PM [facility] WBC UA 11-20(A) None Seen, 0-5 /HPF 12/22/2020 10:24 PM [facility] Bacteria UA Trace(A) None /HPF 12/22/2020 10:24 PM [facility] Squamous Epithelial Cells UA >20(A) None Seen, 0-2, 3-5 /HPF 12/22/2020 10:24 PM [facility] Renal Epithelial Cells UA 0-2(A) None Seen /HPF 12/22/2020 10:24 PM [facility] Mucus UA 2+ /LPF 12/22/2020 10:24 PM [facility] Urine URINE SPECIMEN OBTAINED BY CLEAN CATCH PROCEDURE / Unknown Collection / Unknown 12/22/2020 10:02 PM CDT 12/22/2020 10:15 PM CDT [facility] - 12/22/2020 10:24 PM T Sima Aguirre MD LAB - URINALYSIS ORD ERABLES [facility] [address] [place] [address], [facility] [phone] * URINE DRUG SCREEN IMMUNOASSAY (12/22/2020 10:02 PM CDT) Amphetamines Screen Urine Negative Negative: < 1000 ng/mL 12/23/2020 12:36 AM [facility] Barbiturates Screen Urine Negative Negative: < 200 ng/mL 12/23/2020 12:36 AM [facility] Benzodiazepine Screen Urine Negative Negative: < 200 ng/mL 12/23/2020 12:36 AM [facility] Opiates Urine Negative Negative: < 300 ng/mL 12/23/2020 12:36 AM [facility] Cocaine Metabolites Urine Negative Negative: < 300 ng/mL 12/23/2020 12:36 AM [facility] Phencyclidine Screen Urine Negative Negative: < 25 ng/ml 12/23/2020 12:36 AM [facility] Cannabinoids Screen Urine Negative Negative: <50 ng/mL 12/23/2020 12:36 AM [facility] Methadone Screen Urine Negative Negative: < 300 ng/mL 12/23/2020 12:36 AM [facility] Fentanyl Screen Urine Negative Negative: <1.0 ng/mL 12/23/2020 12:36 AM [facility] Urine URINE / Unknown Collection / Unknown 12/22/2020 10:02 PM CDT 12/23/2020 12:22 AM [facility] 12/23/2020 12:36 AM CDT The Urine Toxicology Screening Panel does not screen for Propoxyphene, Meprobamate, Carisoprodol, Trazodone, npsk-psy-lwohyok medications and/or volatiles (Acetone, Isopropanol, Methanol or Ethylene Glycol). Ethanol, Salicylate, Acetaminophen, Tricyclic Antidepressants and several therapeutic drugs may be individually assayed in serum or plasma specimen. Toxicology testing by the [facility] is an aid to medical diagnosis and treatment of patients. No documented chain of custody was maintained. Results are intended to be used for clinical purposes only. Sung C Edgell MD LAB - URINE CHEMISTR Y ORDERABLES [facility] [address] [place] [address], [facility] [phone] * BLOOD TYPE VERIFICATION (12/22/2020 9:55 PM CDT) ABO Rh O POS 12/22/2020 10:50 PM CDT [facility] Blood Bank BLOOD SPECIMEN / Unknown Venipuncture / Unknown 12/22/2020 9:55 PM CDT 12/22/2020 10:15 PM CDT Sung Ledezma MD LAB - BLOOD BANK ORD ERABLES Performing Organization Address City/[facility]/ZIP Co de Phone Number [facility] [place] [address], [place] [phone] * HEMOGLOBIN A1C (12/22/2020 9:55 PM CDT) Hemoglobin A1c 5.8 4.4 - 6.3 % 12/23/2020 8:45 AM CDT [facility] Estimated Average Glucose 120 mg/dL 12/23/2020 8:45 AM T [facility] Comment: HbA1c Interpretation: Treatment target values recommended by ADA and other clinical organizations should be used to evaluate metabolic control in patients. Treatment Target Values: Normal : < 5.7% Pre-diabetes: 5.7-6.4% Diabetes: Equal to or greater than 6.5% Reference: [place] [employer] Standards of Care in Diabetes -2014 In patients 70 years and older consider HbA1c target range of 7.0-7.5% Reference: Diabetes Mellitus in Older People: Position Statement on behalf of the International Association of Gerontology and Geriatrics (IAGG), the Diabetes Working Libertarian for Older People (EDWPOP), and the International Task Force of Experts in Diabetes. Cornel Gotti et al. J [employer]. 2012 Test results diagnostic of diabetes should be repeated for confirmation. The Sebia Capillary 2 assay for the measurement of HbA1c is a National Glycohemoglobin Standardization Program (NGSP)certified method. Blood BLOOD SPECIMEN / Unknown Venipuncture / Unknown 12/22/2020 9:55 PM CDT 12/22/2020 10:15 PM CDT Sung Ledezma MD LAB - CHEMISTRY MARU MARTINEZ [address] [address], [place] [phone] * PHOSPHORUS BLOOD (12/22/2020 9:55 PM CDT) Only the most recent of2 resultswithin the time period is included. Phosphorus 4.5 2.3 - 4.7 mg/dL 12/22/2020 10:37 PM CDT [facility] Blood BLOOD SPECIMEN / Unknown Venipuncture / Unknown 12/22/2020 9:55 PM CDT 12/22/2020 10:23 PM CDT Sung Ledezma MD LAB - CHEMISTRY MARU MARTINEZ Performing Organization Address City/[facility]/ZIP Co de Phone Number [address] [address], [place] [phone] * MAGNESIUM BLOOD (12/22/2020 9:55 PM CDT) Only the most recent of2 resultswithin the time period is included. Magnesium 1.9 1.6 - 2.6 mg/dL 12/22/2020 10:37 PM CDT [facility] Blood BLOOD SPECIMEN / Unknown Venipuncture / Unknown 12/22/2020 9:55 PM CDT 12/22/2020 10:23 PM CDT Sung Ledezma MD LAB - CHEMISTRY MARU MARTINEZ Performing Organization Address City/[facility]/ZIP Co de Phone Number [address] [address], [place] [phone] * (ABNORMAL) LIPID PROFILE (12/22/2020 9:55 PM CDT) Cholesterol Total 225(H) <200 mg/dL 12/22/2020 10:37 PM CDT [facility] HDL 31(L) >40 mg/dL 12/22/2020 10:37 PM CDT [facility] Comment: ATP III Classification of HDL Cholesterol: <40 mg/dL: Considered a major risk factor. >60 mg/dL: Considered a negative risk factor. LDL Calculated 120(H) <100 mg/dL 12/22/2020 10:37 PM CDT [facility] Comment: ATP III Classification of LDL Cholesterol: <100 mg/dL: Optimal 100 - 129 mg/dL: Near Optimal/Above Optimal 130 - 159 mg/dL: Borderline High 160 - 189 mg/dL: High >190 mg/dL: Very High Triglycerides 371(H) <150 mg/dL 12/22/2020 10:37 PM CDT [facility] Comment: ATP III Classification of Triglycerides: <150 mg/dL: Normal 150 - 199 mg/dL: Borderline High 200 - 400 mg/dL: High >500 mg/dL: Very High Blood BLOOD SPECIMEN / Unknown Venipuncture / Unknown 12/22/2020 9:55 PM CDT 12/22/2020 10:23 PM CDT Sima Aguirre MD LAB - CHEMISTRY MARU MARTINEZ [facility] Organization Address City/State/[facility] Co de Phone Number [facility] [address] [place] [address], [facility] [phone] * MRI BRAIN WO CONTRAST (12/22/2020 9:02 PM CDT) Anatomical Region Laterality Modality Head Magnetic Resonan ce 12/22/2020 9:47 PM CDT Impressions 12/22/2020 9:55 PM CDT IMPRESSION: 1. No evidence of restricted diffusion to suggest an acute infarction. This report was electronically signed by JORDAN GUAJARDO on 12/22/2020 9:55 PM . Narrative 12/22/2020 9:55 PM CDT MRI BRAIN WO CONTRAST DATE: 12/22/2020 9:02 PM EXAMINATION: Magnetic resonance imaging (MRI) of the brain without contrast HISTORY: R53.1: Weakness TECHNIQUE: MRI of the brain was performed without contrast according to standard protocol. COMPARISON: CT of the head and CT angiogram of the head and neck from 12/22/2020 FINDINGS: No evidence of acute or chronic hemorrhage is identified. No evidence of acute cerebral infarction is seen. Mild nonspecific prominence of the ventricles. The ventricles are otherwise normal in shape and morphology. No mass effect or midline shift is seen. Scattered cerebral hemispheric white matter FLAIR hyperintensities are a nonspecific finding. The corpus callosum and sella appear grossly normal. The posterior fossa, brainstem, and craniocervical junction appear normal. Other than mild paranasal sinus disease, the visualized portions of the orbits, paranasal sinuses, and mastoids appear normal. Normal flow voids are demonstrated in the carotid arteries and basilar artery. The calvarium and visualized cervical spine appear normal. Procedure Note Jordan Guajardo MD - 12/22/2020 MRI BRAIN WO CONTRAST DATE: 12/22/2020 9:02 PM EXAMINATION: Magnetic resonance imaging (MRI) of the brain withoutcontrast HISTORY: R53.1: Weakness TECHNIQUE: MRI of the brain was performed without contrast according to standard protocol. COMPARISON: CT of the head and CT angiogram of the head and neck from 12/22/2020 FINDINGS: No evidence of acute or chronic hemorrhage is identified. No evidence of acute cerebral infarction is seen. Mild nonspecific prominence of the ventricles. The ventricles are otherwise normal in shape and morphology. No mass effect or midline shift is seen. Scattered cerebral hemispheric white matter FLAIR hyperintensities are a nonspecific finding. Thecorpus callosum and sella appear grossly normal. The posterior fossa,brainstem, and craniocervical junction appear normal. Other than mild paranasal sinus disease, the visualized portions of the orbits, paranasal sinuses, and mastoids appear normal. Normal flow voids are demonstrated in the carotid arteries and basilar artery. Thecalvarium and visualized cervical spine appear normal. IMPRESSION: 1. No evidence of restricted diffusion to suggest an acute infarction. This report was electronically signed by JORDAN GUAJARDO on12/22/2020 9:55 PM . Sung Ledezma MD MR ORDERABLES * EKG 12-LEAD (12/22/2020 8:10 PM CDT) Ventricular Rate 65 BPM [facility] MUSE Atrial Rate 65 BPM [facility] MUSE P-R Interval 202 ms [facility] M[facility] QRS Duration ms 96 ms [facility] MUSE Q-T Interval ms 418 ms [facility] MUSE QTC Calculation (Bezet) 434 ms [facility] MUSE Calculated P [place] 45 degrees [facility] MUSE Calculated R [place] 61 degrees SL MUSE Calculated T [place] 50 degrees [facility] MUSE Interpretation EKG NORMAL SINUS RHYTHM NORMAL ECG NO PREVIOUS ECGS AVAILABLE Confirmed by Gonsalo Galarza ([id number]) on 12/24/2020 9:40:49 AM [facility] MUSE 12/22/2020 8:10 PM CDT 12/24/2020 9:40 AM CDT Sima Aguirre MD ECG ORDERABLES [facility] [place] SARS-COV-2 (COVID-19)+INFLU A+B PCR RAPID (12/22/2020 7:31 PM CDT) [facility] COVID-19 PCR Not detected Not detected 12/23/19 21 7:58 PM CDT [facility] Influenza A Rapid NOEMI Not Detected Not Detected 12/22/2020 7:58 PM CDT [facility] Influenza B NOEMI Rapid Not Detected Not Detected 12/22/2020 7:58 PM CDT [facility] Microbiology SPECIMEN FROM NASOPHARYNGEAL STRUCTURE / Unknown Collection / Unknown 12/22/2020 7:31 PM CDT 12/22/2020 7:34 PM CDT Narrative [facility] - 12/22/2020 7:58 PM CDT Influenza assay performed by [employer]. Results do not exclude the possibility of a mixed viral infection. NOTE: Detecting and identifying specific viral nucleic acids from individuals exhibiting signs and symptoms of respiratory infection aids in the diagnosis of respiratory infection, if used in conjunction with other clinical and laboratory findings. The results of this test should not be used as the sole basis for diagnosis, treatment, or patient management decisions. This nucleic acid amplification assay performance was validated by [facility]. This test has been authorized by the Food and Drug administration (FDA)under an Emergency Use Authorization (EUA). This test has been validated in accordance with the FDA's guidance document Policy for Diagnostic Testing in Laboratories Certified to perform High Complexity Testing under CLIA prior to Emergency Use Authorization for Coronavirus Disease-2019 during the Public Health Emergency issued on September 20, 2019. FDA independent review of this validation is pending. This test is only authorized for the duration of time the declaration that circumstances exist justifying the authorization of emergency use of in vitro diagnostic tests for detection of SARS-CoV-2 virus and/or diagnosis of COVID-19 infection under section 564(b)(1) of the Act, 21 U.S.C 360bbb-3 (b)(1), unless the authorization is terminated or revoked sooner. Fact Sheets for this EUA assay are available upon request. Jesus Levi MD LAB - MICROBIOLOGY O RDERABLES [facility] [address] [place] [address], [facility] [phone] * CBC W AUTO DIFFERENTIAL (12/22/2020 7:29 PM CDT) Only the most recent of4 resultswithin the time period is included. WBC 8.9 3.5 - 10.5 10 3/uL 12/22/2020 7:40 PM CDT [facility] RBC 4.22 3.80 - 5.20 10 6/uL 12/22/2020 7:40 PM CDT [facility] Hemoglobin 12.8 12.0 - 15.6 g/dL 12/22/2020 7:40 PM [facility] Hematocrit 39.5 35.0 - 45.0 % 12/22/2020 7:40 PM T [facility] MCV 93.6 80.7 - 98.3 fL 12/22/2020 7:40 PM CDT [facility] MCH 30.3 26.7 - 34.0 pg 12/22/2020 7:40 PM CDT [facility] MCHC 32.4 30.8 - 35.9 g/dL 12/22/2020 7:40 PM [facility] Platelet Count 307 150 - 400 10 3/uL 12/22/2020 7:40 PM [facility] RDW-SD 45.5 36.0 - 50.0 fL 12/22/2020 7:40 PM [facility] RDW-CV 13.2 11.2 - 14.8 % 12/22/2020 7:40 PM [facility] MPV 10.5 9.4 - 12.9 fL 12/22/2020 7:40 PM [facility] nRBC Absolute 0.00 0 10 3/uL 12/22/2020 7:40 PM [facility] nRBC Auto 0.0 0 /100 WBC 12/22/2020 7:40 PM [facility] Neutrophils % 67.7 35.0 - 70.0 % 12/22/2020 7:40 PM [facility] Lymphocytes % 21.1 20.0 - 43.0 % 12/22/2020 7:40 PM [facility] Monocytes % 8.1 5.0 - 13.0 % 12/22/2020 7:40 PM [facility] Eosinophils % 2.0 0.0 - 6.0 % 12/22/2020 7:40 PM [facility] Basophil % 0.9 0.0 - 2.0 % 12/22/2020 7:40 PM [facility] Neutrophils Absolute 6.0 1.6 - 7.0 10 3/uL 12/22/2020 7:40 PM [facility] Lymphocyte Absolute 1.9 1.1 - 3.9 10 3/uL 12/22/2020 7:40 PM [facility] Monocytes Absolute 0.72 0.26 - 1.07 10 3/uL 12/22/2020 7:40 PM [facility] Eosinophils Absolute 0.18 0.00 - 0.47 10 3/uL 12/22/2020 7:40 PM [facility] Basophils Absolute 0.08 0.00 - 0.08 10 3/uL 12/22/2020 7:40 PM [facility] Immature Granulocytes % 0.2 0.0 - 1.0 % 12/22/2020 7:40 PM [facility] Immature Granulocytes Absolute 0.02 12/22/2020 7:40 PM CDT [facility] Blood BLOOD SPECIMEN / Unknown Venipuncture / Unknown 12/22/2020 7:29 PM CDT 12/22/2020 7:35 PM CDT Sima Aguirre MD LAB - HEMATOLOGY ORD ERABLES [facility] [address] [place] [address], [facility] [phone] * XR CHEST 1VW PORTABLE (12/22/2020 7:29 PM CDT) Anatomical Region Laterality Modality Chest Radiographic Jacqueline ging 12/23/2020 8:02 AM CDT Impressions 12/23/2020 8:24 AM CDT Impression: No acute pulmonary process. Dr. KARINA Diallo MD have personally reviewed and interpreted this examination/study. This report was electronically signed by KARINA ARORA MD on 12/23/2020 8:24 AM . Narrative 12/23/2020 8:24 AM CDT Exam: XR CHEST 1VW PORTABLE Date: 12/22/2020 7:29 PM History: R53.1: Weakness Comparison: None Findings: Prominent interstitial markings. There is no consolidation, pleural effusion, or pneumothorax. The cardiomediastinal silhouette is normal. Chronic appearing right rib fractures. Procedure Note Karina Arora MD - 12/23/2020 Exam: XR CHEST 1VW PORTABLE Date: 12/22/2020 7:29 PM History: R53.1: Weakness Comparison: None Findings: Prominent interstitial markings. There is no consolidation, pleural effusion, or pneumothorax. The cardiomediastinal silhouette is normal. Chronic appearing right rib fractures. Impression: No acute pulmonary process. Dr. KARINA Diallo MD have personally reviewed and interpreted this examination/study. This report was electronically signed by KARINA ARORA MD on 12/23/2020 8:24 AM . Sung Ledezma MD DIAGNOSTIC IMAGING O RDERABLES * PT-INR [facility] (12/22/2020 7:08 PM CDT) [facility] PT 12.6 12.1 - 14.8 Seconds 12/22/2020 7:26 PM CDT [facility] INR 1.0 See Comment 12/22/2020 7:26 PM CDT [facility] Comment:The suggested therap eutic range for standard coumadin (warfarin) therapy is an INR of 2.0-3.0. For high-risk patients (Mechanical Mitral Valve Prosthesis, etc.), the suggested prophylactic therapeutic range is an INR of 2.5-3.5. Blood BLOOD SPECIMEN / Unknown Venipuncture / Unknown 12/22/2020 7:08 PM CDT 12/22/2020 7:18 PM CDT Sima Aguirre MD LAB - COAGULATION OR DERABLES Performing Organization Address City/[facility]/ZIP Co de Phone Number [address] [address], [facility] [phone] * TYPE + SCREEN PANEL (12/22/2020 7:08 PM CDT) [facility] Antibody Screen NEG 8:19 PM CDT [facility] ABO Rh O POS 12/22/2020 8:19 PM CDT [facility] Blood Bank BLOOD SPECIMEN / Unknown Venipuncture / Unknown 12/22/2020 7:08 PM CDT 12/22/2020 7:41 PM CDT Sima Aguirre MD LAB - BLOOD BANK ORD ERABLES Performing Organization Address City/[facility]/ZIP Co de Phone Number [facility] [address] [place] [phone], [employer] [phone] * (ABNORMAL) COMPREHENSIVE METABOLIC PANEL (12/22/2020 7:08 PM CDT) Only the most recent of4 resultswithin the time period is included. [facility] BUN 17 7 - 26 mg/dL 12/22/2020 7:39 PM CDT [facility] Creatinine 1.09(H) 0.56 - 0.96 mg/dL 12/22/2020 7:39 PM [facility] Sodium 142 136 - 145 mmol/L 12/22/2020 7:39 PM [facility] Potassium 3.6 3.5 - 4.5 mmol/L 12/22/2020 7:39 PM [facility] Chloride 101 98 - 107 mmol/L 12/22/2020 7:39 PM [facility] CO2 32(H) 22 - 29 mmol/L 12/22/2020 7:39 PM [facility] Glucose 100 70 - 115 mg/dL 12/22/2020 7:39 PM [facility] Calcium 8.9 8.4 - 10.2 mg/dL 12/22/2020 7:39 PM [facility] Protein Total 7.7 6.0 - 8.3 g/dL 12/22/2020 7:39 PM [facility] Albumin 3.6 3.4 - 5.0 g/dL 12/22/2020 7:39 PM [facility] Bilirubin Total 0.3 0.2 - 1.2 mg/dL 12/22/2020 7:39 PM [facility] Alkaline Phosphatase 108 40 - 150 U/L 12/22/2020 7:39 PM [facility] ALT 8 5 - 55 U/L 12/22/2020 7:39 PM [facility] AST 13 5 - 34 U/L 12/22/2020 7:39 PM [facility] Anion Gap 13 8 - 18 12/22/2020 7:39 PM [facility] BUN/Creatinine Ratio 16 7 - 23 12/22/2020 7:39 PM [facility] Osmolality Calculated 296 270 - 300 mOsm/kg 12/22/2020 7:39 PM [facility] Albumin/Globulin Ratio 0.9(L) 1.1 - 2.3 12/22/2020 7:39 PM [facility] eGFR by CKD-EPI 56(L) >=90 mL/min/1.7 3 m2 12/22/2020 7:39 PM [facility] Blood BLOOD SPECIMEN / Unknown Venipuncture / Unknown 12/22/2020 7:08 PM CDT 12/22/2020 7:13 PM CDT Sima Aguirre MD LAB - CHEMISTRY MARU Sousa Organization Address City/State/ZIP Co de Phone Number [facility] [address] [place] [address], [facility] [phone] * CT ANGIO BRAIN NECK STROKE (12/22/2020 7:05 PM CDT) Anatomical Region Laterality Modality Head Computed Tomogra phy 12/22/2020 7:56 PM CDT Impressions 12/22/2020 9:40 PM CDT IMPRESSION: 1. No acute intracranial hemorrhage. 2. No large arterial occlusions or significant stenoses identified in the head or neck. This report was electronically signed by JORDAN GUAJARDO on 12/22/2020 9:40 PM . Narrative 12/22/2020 9:[address] BRAIN STROKE, CT ANGIO BRAIN NECK STROKE DATE: 12/22/2020 6:38 PM EXAMINATION: 1. Computed tomographic (CT) angiography of the head without and with contrast 2. CT angiography of the neck with contrast HISTORY: Code Stroke TECHNIQUE: CT of the head was performed without contrast according to standard protocol. Then CT angiography of the head and neck was obtained after the uneventful administration of 75 mL Isovue-370 intravenous contrast. Three dimensional postprocessing was performed by the technologist and sent to the workstation for review. COMPARISON: No prior study is available for comparison at the time of this dictation. FINDINGS: Non-angiographic findings: No acute intra- or extra-axial fluid collections are identified. The ventricles are of normal size, shape, and morphology. The basilar cisterns are patent. No mass effect or midline shift is seen. The jacobs-white matter differentiation is normal. Periventricular white matter hypoattenuation is indicative of chronic small vessel ischemic disease. There is vascular calcification of the carotid siphons. The visualized portions of the orbits, paranasal sinuses, and mastoids appear grossly unremarkable. No acute fracture is identified. No soft tissue abnormalities are identified in the neck. There are postoperative findings of anterior cervical discectomy and fusion at C3-C4. There is borderline developmental cervical spinal canal stenosis and multilevel degenerative disc and joint disease. Mosaic appearance of the upper lobes with scattered groundglass opacities, interstitial septal thickening, and mild dependent opacities. Small left hilar lymph node measuring approximately 9 x 50 mm, (series 10, image 16), nonspecific. Angiographic findings: There is atherosclerotic disease of the aortic arch. The configuration of the brachiocephalic vessels is typical. There is atherosclerotic calcification of the innominate and subclavian arteries. Retropharyngeal course of the internal carotid arteries bilaterally. The carotid and cervical vertebral arteries are tortuous. There is suspected minimal atherosclerotic disease of the right carotid bifurcation and origin of the right internal carotid artery with no stenosis by NASCET criteria. The right common and internal carotid arteries otherwise appear normal. There is suspected minimal atherosclerotic disease of the left carotid bifurcation and origin of the left internal carotid artery with no stenosis by NASCET criteria. The left common and internal carotid arteries otherwise appear normal. There is atherosclerotic disease involving the cervical vertebral arteries without significant focal stenosis. The distal internal carotid arteries appear normal. The anterior and middle cerebral arteries appear normal. The distal vertebral arteries appear normal. The basilar artery and posterior cerebral arteries appear normal. No aneurysms, vascular occlusions, or intracranial stenoses are identified. Procedure Note Jordan Guajardo MD - 12/22/2020 CT BRAIN STROKE, CT ANGIO BRAIN NECK STROKE DATE: 12/22/2020 6:38 PM EXAMINATION: 1. Computed tomographic (CT) angiography of the head without and with contrast 2. CT angiography of the neck with contrast HISTORY: Code Stroke TECHNIQUE: CT of the head was performed without contrast according to standard protocol. Then CT angiography of the head and neck was obtained after the uneventful administration of 75 mL Isovue-370 intravenous contrast. Three dimensional postprocessing was performed by the technologist and sent to the workstation for review. COMPARISON: No prior study is available for comparison at the time ofthis dictation. FINDINGS: Non-angiographic findings: No acute intra- or extra-axial fluid collections are identified. The ventricles are of normal size, shape, and morphology. The basilarcisterns are patent. No mass effect or midline shift is seen. The jacobs-whitematter differentiation is normal. Periventricular white matter hypoattenuationis indicative of chronic small vessel ischemic disease. There is vascular calcification of the carotid siphons. The visualized portions of the orbits, paranasal sinuses, and mastoids appear grossly unremarkable. No acute fracture is identified. No soft tissue abnormalities are identified in the neck. There are postoperative findings of anterior cervical discectomy and fusion at C3-C4. There is borderline developmental cervical spinal canal stenosis and multilevel degenerative disc and joint disease. Mosaic appearance of the upper lobes with scattered groundglass opacities, interstitialseptal thickening, and mild dependent opacities. Small left hilar lymph node measuring approximately 9 x 50 mm, (series 10, image 16), nonspecific. Angiographic findings: There is atherosclerotic disease of the aortic arch. The configurationof the brachiocephalic vessels is typical. There is atherosclerotic calcification of the innominate and subclavian arteries. Retropharyngeal course of the internal carotid arteries bilaterally. The carotid and cervical vertebral arteries are tortuous. There is suspected minimal atherosclerotic disease of the right carotid bifurcation and origin ofthe right internal carotid artery with no stenosis by NASCET criteria. The right common and internal carotid arteries otherwise appear normal.There is suspected minimal atherosclerotic disease of the left carotid bifurcation and origin of the left internal carotid artery with no stenosis by NASCET criteria. The left common and internal carotidarteries otherwise appear normal. There is atherosclerotic disease involving the cervical vertebral arteries without significant focal stenosis. The distal internal carotid arteries appear normal. The anterior and middle cerebral arteries appear normal. The distal vertebral arteries appear normal. The basilar artery and posterior cerebral arteries appear normal. No aneurysms, vascular occlusions, or intracranial stenoses are identified. IMPRESSION: 1. No acute intracranial hemorrhage. 2. No large arterial occlusions or significant stenoses identified inthe head or neck. This report was electronically signed by JORDAN GUAJARDO on12/22/2020 9:40 PM . Sima Aguirre MD CT ORDERABLES * CT BRAIN - Stroke (12/22/2020 6:34 PM CDT) Anatomical Region Laterality Modality Head Computed Tomogra phy 12/22/2020 7:56 PM CDT Impressions 12/22/2020 9:40 PM CDT IMPRESSION: 1. No acute intracranial hemorrhage. 2. No large arterial occlusions or significant stenoses identified in the head or neck. This report was electronically signed by JORDAN GUAJARDO on 12/22/2020 9:40 PM . Narrative 12/22/2020 9:[address] BRAIN STROKE, CT ANGIO BRAIN NECK STROKE DATE: 12/22/2020 6:38 PM EXAMINATION: 1. Computed tomographic (CT) angiography of the head without and with contrast 2. CT angiography of the neck with contrast HISTORY: Code Stroke TECHNIQUE: CT of the head was performed without contrast according to standard protocol. Then CT angiography of the head and neck was obtained after the uneventful administration of 75 mL Isovue-370 intravenous contrast. Three dimensional postprocessing was performed by the technologist and sent to the workstation for review. COMPARISON: No prior study is available for comparison at the time of this dictation. FINDINGS: Non-angiographic findings: No acute intra- or extra-axial fluid collections are identified. The ventricles are of normal size, shape, and morphology. The basilar cisterns are patent. No mass effect or midline shift is seen. The jacobs-white matter differentiation is normal. Periventricular white matter hypoattenuation is indicative of chronic small vessel ischemic disease. There is vascular calcification of the carotid siphons. The visualized portions of the orbits, paranasal sinuses, and mastoids appear grossly unremarkable. No acute fracture is identified. No soft tissue abnormalities are identified in the neck. There are postoperative findings of anterior cervical discectomy and fusion at C3-C4. There is borderline developmental cervical spinal canal stenosis and multilevel degenerative disc and joint disease. Mosaic appearance of the upper lobes with scattered groundglass opacities, interstitial septal thickening, and mild dependent opacities. Small left hilar lymph node measuring approximately 9 x 50 mm, (series 10, image 16), nonspecific. Angiographic findings: There is atherosclerotic disease of the aortic arch. The configuration of the brachiocephalic vessels is typical. There is atherosclerotic calcification of the innominate and subclavian arteries. Retropharyngeal course of the internal carotid arteries bilaterally. The carotid and cervical vertebral arteries are tortuous. There is suspected minimal atherosclerotic disease of the right carotid bifurcation and origin of the right internal carotid artery with no stenosis by NASCET criteria. The right common and internal carotid arteries otherwise appear normal. There is suspected minimal atherosclerotic disease of the left carotid bifurcation and origin of the left internal carotid artery with no stenosis by NASCET criteria. The left common and internal carotid arteries otherwise appear normal. There is atherosclerotic disease involving the cervical vertebral arteries without significant focal stenosis. The distal internal carotid arteries appear normal. The anterior and middle cerebral arteries appear normal. The distal vertebral arteries appear normal. The basilar artery and posterior cerebral arteries appear normal. No aneurysms, vascular occlusions, or intracranial stenoses are identified. Procedure Note Jordan Guajardo MD - 12/22/2020 CT BRAIN STROKE, CT ANGIO BRAIN NECK STROKE DATE: 12/22/2020 6:38 PM EXAMINATION: 1. Computed tomographic (CT) angiography of the head without and with contrast 2. CT angiography of the neck with contrast HISTORY: Code Stroke TECHNIQUE: CT of the head was performed without contrast according to standard protocol. Then CT angiography of the head and neck was obtained after the uneventful administration of 75 mL Isovue-370 intravenous contrast. Three dimensional postprocessing was performed by the technologist and sent to the workstation for review. COMPARISON: No prior study is available for comparison at the time ofthis dictation. FINDINGS: Non-angiographic findings: No acute intra- or extra-axial fluid collections are identified. The ventricles are of normal size, shape, and morphology. The basilarcisterns are patent. No mass effect or midline shift is seen. The jacobs-whitematter differentiation is normal. Periventricular white matter hypoattenuationis indicative of chronic small vessel ischemic disease. There is vascular calcification of the carotid siphons. The visualized portions of the orbits, paranasal sinuses, and mastoids appear grossly unremarkable. No acute fracture is identified. No soft tissue abnormalities are identified in the neck. There are postoperative findings of anterior cervical discectomy and fusion at C3-C4. There is borderline developmental cervical spinal canal stenosis and multilevel degenerative disc and joint disease. Mosaic appearance of the upper lobes with scattered groundglass opacities, interstitialseptal thickening, and mild dependent opacities. Small left hilar lymph node measuring approximately 9 x 50 mm, (series 10, image 16), nonspecific. Angiographic findings: There is atherosclerotic disease of the aortic arch. The configurationof the brachiocephalic vessels is typical. There is atherosclerotic calcification of the innominate and subclavian arteries. Retropharyngeal course of the internal carotid arteries bilaterally. The carotid and cervical vertebral arteries are tortuous. There is suspected minimal atherosclerotic disease of the right carotid bifurcation and origin ofthe right internal carotid artery with no stenosis by NASCET criteria. The right common and internal carotid arteries otherwise appear normal.There is suspected minimal atherosclerotic disease of the left carotid bifurcation and origin of the left internal carotid artery with no stenosis by NASCET criteria. The left common and internal carotidarteries otherwise appear normal. There is atherosclerotic disease involving the cervical vertebral arteries without significant focal stenosis. The distal internal carotid arteries appear normal. The anterior and middle cerebral arteries appear normal. The distal vertebral arteries appear normal. The basilar artery and posterior cerebral arteries appear normal. No aneurysms, vascular occlusions, or intracranial stenoses are identified. IMPRESSION: 1. No acute intracranial hemorrhage. 2. No large arterial occlusions or significant stenoses identified inthe head or neck. This report was electronically signed by JORDAN GUAJARDO on12/22/2020 9:40 PM . Sima Aguirre MD CT ORDERABLES * CARDIAC RHYTHM STRIP ORDER (09/06/2020 10:27 PM PIPE BOWL PAINT TRIMMER) Narrative 09/06/2020 10:27 PM PIPE BOWL PAINT TRIMMER Ordered by an unspecified provider. Scanned Document CARDIAC SERVICES ORD ERABLES * TSH REFLEX FREE T4 (09/04/2020 3:31 AM PIPE BOWL PAINT TRIMMER) Only the most recent of2 resultswithin the time period is included. Pathologist [facility] TSH 0.368 0.350 - 4.940 uIU/mL 09/04/2020 4:42 AM PIPE BOWL PAINT TRIMMER [facility] Blood BLOOD SPECIMEN / Unknown Venipuncture / Unknown 09/04/2020 3:31 AM PIPE BOWL PAINT TRIMMER 09/04/2020 3:43 AM PIPE BOWL PAINT TRIMMER Christy Brown MD LAB - CHEMISTRY ORDE JUAN [facility] Organization Address City/State/ZIP Co de Phone Number [facility] [address] [place] [address] * FOLATE (09/04/2020 3:31 AM PIPE BOWL PAINT TRIMMER) Pathologist [facility] Folate 15.6 7.0 - 31.4 ng/mL 09/04/2020 4:42 AM PIPE BOWL PAINT TRIMMER [facility] Blood BLOOD SPECIMEN / Unknown Venipuncture / Unknown 09/04/2020 3:31 AM PIPE BOWL PAINT TRIMMER 09/04/2020 3:43 AM PIPE BOWL PAINT TRIMMER Stacy Bra [facility] LAB - CHEMISTRY ORDERABLES Performing Organization Address [facility] de Phone Number [facility] [address] [place] [address] * VITAMIN B12 (09/04/2020 3:31 AM PIPE BOWL PAINT TRIMMER) Only the most recent of2 resultswithin the time period is included. Vitamin B12 280 213 - 816 pg/mL 09/04/2020 4:42 AM PIPE BOWL PAINT TRIMMER [facility] Blood BLOOD SPECIMEN / Unknown Venipuncture / Unknown 09/04/2020 3:31 AM PIPE BOWL PAINT TRIMMER 09/04/2020 3:43 AM PIPE BOWL PAINT TRIMMER Stacy Bar [facility] LAB - CHEMISTRY ORDERABLES Performing Organization Address [facility] de Phone Number [facility] [address] [place] [address] * AMMONIA (09/04/2020 3:31 AM PIPE BOWL PAINT TRIMMER) Ammonia 35 18 - 72 umol/L 09/04/2020 3:56 AM PIPE BOWL PAINT TRIMMER [facility] Blood BLOOD SPECIMEN / Unknown Venipuncture / Unknown 09/04/2020 3:31 AM PIPE BOWL PAINT TRIMMER 09/04/2020 3:43 AM PIPE BOWL PAINT TRIMMER Stacy Bar [facility] LAB - CHEMISTRY ORDERABLES Performing Organization Address [facility] de Phone Number [facility] [address] [place] [address] * T3 TOTAL (09/04/2020 3:31 AM PIPE BOWL PAINT TRIMMER) T3 Total 0.61 0.35 - 1.93 ng/mL 09/04/2020 1:43 PM PIPE BOWL PAINT TRIMMER [facility] Blood BLOOD SPECIMEN / Unknown Venipuncture / Unknown 09/04/2020 3:31 AM PIPE BOWL PAINT TRIMMER 09/04/2020 3:43 AM PIPE BOWL PAINT TRIMMER Christy Brown MD LAB - CHEMISTRY MARU MARTINEZ [facility] [address] [place] [address] * T4 FREE DIRECT REFLEXED (09/03/2020 5:33 AM PIPE BOWL PAINT TRIMMER) Pathologist [facility] T4 Free 0.99 0.70 - 1.48 ng/dL 09/03/2020 7:34 AM PIPE BOWL PAINT TRIMMER [facility] Blood BLOOD SPECIMEN / Unknown Venipuncture / Unknown 09/03/2020 5:33 AM PIPE BOWL PAINT TRIMMER 09/03/2020 5:38 AM PIPE BOWL PAINT TRIMMER Orly Huertas AIR TESTER-MASCARA MOLDER LAB - CHEM ISTRY ORDERABLES Performing Organization Address City/[facility]/ZIP Co de Phone Number [facility] [address] [place] [address] * HIV-1 HIV-2 ANTIGEN/ANTIBODY (02/22/2018 1:00 PM CDT) [facility] HIV Antigen/Antibod y 1 & 2 Non-reacti ve Non-react austin 02/22/2018 2:34 PM CDT [facility] Comment: Neither HIV-1 p24 Antigen nor HIV-1/HIV-2 Antibodies are detected. Blood BLOOD SPECIMEN / Unknown Lab Venipuncture / Unknown 02/22/2018 1:00 PM CDT 02/22/2018 1:15 PM CDT Eulalia Lema DO LAB - HEMATOLOGY O RDERABLES [address] [phone] * DNA (DS) ANTIBODY RFLEX IFA (02/22/2018 1:00 PM CDT) Pathologist [facility] dsDNA Antibody 12 0 - 29 IU/mL 02/25/2018 12:24 PM CDT [facility] Comment: dsDNA Antibody Numeric Result Interpretation: 0 - 29 IU/mL: Negative 30 - 75 IU/mL: Borderline >75 IU/mL: Positive Blood BLOOD SPECIMEN / Unknown Lab Venipuncture / Unknown 02/22/2018 1:00 PM CDT 02/22/2018 1:15 PM CDT Eulalia Lema DO LAB - SEROLOGY ORD ERABLES [facility] [address] [place] [address] * (ABNORMAL) TAMIE STAINING PATTERNS REFLEXED (02/22/2018 1:00 PM CDT) Only the most recent of2 resultswithin the time period is included. Homogeneous Pattern 1:160(H) 02/25/2018 2:15 PM CDT [facility] ([facility]) Note Comment 02/25/2018 2:15 PM CDT [facility] ([facility]) Comment: A positive SUMMER result may occur in healthy individuals (low titer) or be associated with a variety of diseases. See interpretation chart which is not all inclusive: Pattern Antigen Detected Suggested Disease Association Homogeneous DNA(ds,ss), SLE - High titers Nucleosomes, Histones Drug-induced SLE Speckled Sm, CARTON MACHINE OPERATOR, SCL-70, SLE,MCTD,PSS (diffuse form), SS-A/SS-B Sjogrens Nucleolar SCL-70, PM-1/SCL High titers Scleroderma, PM/DM Centromere Centromere PSS (limited form) w/Crest syndrome variable Nuclear Dot [id number] Primary Biliary Cirrhosis Nuclear GP210, Primary Biliary Cirrhosis Membrane suhas A,B,C Blood BLOOD SPECIMEN / Unknown Lab Venipuncture / Unknown 02/22/2018 1:00 PM CDT 02/22/2018 1:15 PM CDT [facility] ([facility]) - 02/25/2018 2:15 PM CDT Performed at: [address] [place] [address] [address] [place], [place] [id number] Alterations Workroom Clerk: Titi Ornelas PhD, Phone: [phone] Eulalia Lema DO LAB - PATHOLOGY/CLAUDIO RUIZ ORDERABLES [facility] ([facility]) [address] [place] [address], [facility] * LUPUS ANTICOAGULANT PANEL (02/22/2018 1:00 PM CDT) Only the most recent of2 resultswithin the time period is included. APTT 32.5 23.0 - 38.4 Seconds 02/22/2018 1:52 PM CDT [facility] PT 12.6 12.1 - 14.8 Seconds 02/22/2018 1:52 PM CDT [facility] STACLOT-[place] Buffer 62.7 Seconds 018 1:52 PM CDT [facility] [place] Phospholipid 58.4 Seconds 02/22/2018 1:52 PM CDT [facility] [place] Delta 4.3 <8.0 Seconds 02/22/2018 1:52 PM CDT [facility] Interpretation STACLOT-[place] Negative Negative 02/22/2018 1:52 PM CDT [facility] Comment:Up to 15-20% of lisa ents with lupus anticoagulant associated with antiphospholipid antibody syndrome (APAS) will have negative STACLOT-LA results. For these patients we recommend additional testing to include the Dilute Rishabh Viper Venom Time (DRVVT) test. Immunoassay measurements of anti-cardiolipin and anti-beta-2 glycoprotein 1 are recommended if the DRVVT, and STACLOT-LA tests are negative and there is clinical suspicion of APAS. Blood BLOOD SPECIMEN / Unknown Lab Venipuncture / Unknown 02/22/2018 1:00 PM CDT 02/22/2018 1:15 PM CDT Eulalia Lema DO LAB - HEMATOLOGY O RDERABLES Performing Organization Address City/State/[facility] Co de Phone Number [address] [phone] * CARTON MACHINE OPERATOR ANTIBODY (02/22/2018 1:00 PM CDT) Only the most recent of2 resultswithin the time period is included. SM/CARTON MACHINE OPERATOR Antibody 4.9 0.0 - 19.9 Units 02/25/2018 12:24 PM CDT [facility] Comment: KAI Antibody Numeric Result Interpretation: <20.0 Units: Negative 20.0 - 39.0 Units: Weakly Positive >39.0 Units: Positive Blood BLOOD SPECIMEN / Unknown Lab Venipuncture / Unknown 02/22/2018 1:00 PM CDT 02/22/2018 1:15 PM CDT Eulalia E Bensinger DO LAB - [place] [address], [facility] [phone] * RHEUMATOID FACTOR BLOOD QUANTITATIVE (02/22/2018 1:00 PM CDT) Only the most recent of2 resultswithin the time period is included. Pathologist [facility] Rheumatoid Factor <15 <30 IU/mL 02/22/2018 4:52 PM CDT [facility] Blood BLOOD SPECIMEN / Unknown Lab Venipuncture / Unknown 02/22/2018 1:00 PM CDT 02/22/2018 1:15 PM CDT Eulalia Lema DO LAB - CHEMISTRY OR DERABLES Performing Organization Address [facility] [place] [address], [facility] [phone] * (ABNORMAL) SUMMER BLOOD SCREEN W/REFLEX TITER (02/22/2018 1:00 PM CDT) Only the most recent of2 resultswithin the time period is included. Pathologist [facility] SUMMER Positive(A ) 02/25/2018 2:15 PM CDT [facility] ([facility]) Comment: Negative <1:80 Borderline 1:80 Positive >1:80 Blood BLOOD SPECIMEN / Unknown Lab Venipuncture / Unknown 02/22/2018 1:00 PM CDT 02/22/2018 1:15 PM CDT Narrative [facility] ([facility]) - 02/25/2018 2:15 PM CDT Performed at: [facility] [address] [place], [place] [id number] Alterations Workroom Clerk: Titi Ornelas PhD, Phone: [phone] Eulalia Lema DO LAB - CHEMISTRY OR DERABLES Performing Organization Address City/[facility]/ZIP Co de Phone Number [facility] ([facility]) [address] [place] [address], [facility] * SS-B (SJOGRENS'S) ANTIBODY (02/22/2018 1:00 PM CDT) Only the most recent of2 resultswithin the time period is included. SS-B LA Antibody 9.9 0.0 - 19.9 Units 02/25/2018 12:24 PM CDT [facility] Comment: KAI Antibody Numeric Result Interpretation: <20.0 Units: Negative 20.0 - 39.0 Units: Weakly Positive >39.0 Units: Positive Blood BLOOD SPECIMEN / Unknown Lab Venipuncture / Unknown 02/22/2018 1:00 PM CDT 02/22/2018 1:15 PM CDT [facility] DO LAB - CHEMISTRY OR DERABLES Performing Organization Address [facility] Co de Phone Number [address] [phone] * SS-A (SJOGREN'S) ANTIBODY (02/22/2018 1:00 PM CDT) Only the most recent of2 resultswithin the time period is included. Pathologist [facility] SS-A (Ro) Antibody 2.3 0.0 - 19.9 Units 02/25/2018 12:24 PM CDT [facility] Comment: KAI Antibody Numeric Result Interpretation: <20.0 Units: Negative 20.0 - 39.0 Units: Weakly Positive >39.0 Units: Positive Blood BLOOD SPECIMEN / Unknown Lab Venipuncture / Unknown 02/22/2018 1:00 PM CDT 02/22/2018 1:15 PM CDT Eulalia [email or web address].ch DO LAB - CHEMISTRY OR DERABLES [address] [phone] * TSH (02/22/2018 1:00 PM CDT) Only the most recent of2 resultswithin the time period is included. Pathologist [facility] TSH 0.415 0.350 - 4.940 uIU/mL 02/22/2018 2:36 PM CDT [facility] Blood BLOOD SPECIMEN / Unknown Lab Venipuncture / Unknown 02/22/2018 1:00 PM CDT 02/22/2018 1:15 PM CDT Eulalia Lema DO LAB - CHEMISTRY OR DERABLES [facility] [address] [place] [address], [facility] [phone] * OCCULT BLOOD FECES - POINT OF CARE (IP) (02/22/2018) Occult Blood Negative Negative QC Verified Yes Yes Card Exp Date yes Yes Stool STOOL SPECIMEN / Unknown 02/22/2018 Bernadette Saavedra APRN-ABHISHEK LAB - POINT OF C ARE ORDERABLES * HEMOGLOBIN A1C - POINT OF CARE (AMB) [facility] (02/13/2018 2:41 PM CDT) Only the most recent of2 resultswithin the time period is included. Pathologist [facility] Hemoglobin A1c POCT 5.5 [facility] BLOOD SPECIMEN / Unknown 02/13/2018 2:41 PM CDT Eulalia Lema DO LAB - POINT OF CAR E ORDERABLES Performing Organization Address [facility] Co de Phone Number [facility] [address] [facility] [place] [address] * (ABNORMAL) LIPID PROFILE - POINT OF CARE (AMB) [facility] (01/21/2018) Cholesterol Total 271 HDL 35 mg/dL Triglycerides 344(A) 40 - 160 mg/dL LDL Calculated 167 Blood BLOOD SPECIMEN / Unknown 01/21/2018 Garrett Retana PA-C LAB - POINT OF CARE ORDERABLES * LAB HISTORICAL RESULTS-ONBASE (01/31/2017) Only the most recent of6 resultswithin the time period is included. 01/31/2017 Historical Provider LAB - CHEMISTRY O RDERABLES [facility] [address] * HISTONE ANTIBODY (07/19/2016 10:09 AM PIPE BOWL PAINT TRIMMER) Anti-Histone Antibody 0.8 0.0 - 0.9 Units [facility] Comment: Negative <1.0 Weak Positive 1.0 - 1.5 Moderate Positive 1.6 - 2.5 Strong Positive >2.5 Blood specimen (specimen) BLOOD SPECIMEN / Unknown 07/19/2016 10:09 AM PIPE BOWL PAINT TRIMMER 07/19/2016 10:09 AM PIPE BOWL PAINT TRIMMER Narrative [facility] ([facility]) - 07/25/2016 1:08 PM PIPE BOWL PAINT TRIMMER Performed at: [address] [place] [id number] Alterations Workroom Clerk: Ellis Theodore MD, Phone: [phone] Leanne Hatfield MD LAB - CHEMISTR Y ORDERABLES [facility]) * (ABNORMAL) DNA ANTIBODY DS CRITHIDIA TITER (07/19/2016 10:08 AM PIPE BOWL PAINT TRIMMER) dsDNA Antibody IgG IFA 1:160(H) <1:10 [facility] Comment: INTERPRETIVE INFORMATION: Double-Stranded DNA (dsDNA) Antibody, IgG by IFA (using Crithidia luciliae) Positivity for anti-double stranded DNA (anti-dsDNA) IgG antibody is a diagnostic criterion of systemic lupus erythematosus (SLE). The presence of the anti-dsDNA IgG antibody is identified by IFA titer (Crithidia luciliae indirect fluorescent test [YOSI]). YOSI is highly specific for SLE with a sensitivity of 50-60 percent. Some patients with early or inactive SLE may be positive for anti-dsDNA IgG by KEVIN but negative by YOSI. If the YOSI result is negative but the patient has a positive KEVIN and clinical suspicion remains, consider antinuclear antibody (SUMMER) testing by IFA. Additional information and recommendations for testing may be found at http://www.xzoops.com/Topics/AutoimmuneDz/ConnectiveTissueDz/i ndex.html. Performed by [facility], [address] [place] [id number] [email or web address], Javier Bach MD, Lab. Director Blood specimen (specimen) BLOOD SPECIMEN / Unknown 07/19/2016 10:08 AM PIPE BOWL PAINT TRIMMER 07/19/2016 10:09 AM PIPE BOWL PAINT TRIMMER Leanne Hatfield MD LAB - SEROLOGY ORDERABLES [facility] ([facility]) * (ABNORMAL) COMPLEMENT TOTAL (07/19/2016 10:08 AM PIPE BOWL PAINT TRIMMER) Complement Total CH50 >60(H) 42 - 60 U/mL [facility] Blood specimen (specimen) BLOOD SPECIMEN / Unknown 07/19/2016 10:08 AM PIPE BOWL PAINT TRIMMER 07/19/2016 10:08 AM PIPE BOWL PAINT TRIMMER Narrative [facility] - 07/20/2016 3:12 PM PIPE BOWL PAINT TRIMMER Performed at: [employer] [place] [id number] Alterations Workroom Clerk: Titi Ornelas PhD, Phone: [phone] Leanne Hatfield MD LAB - CHEMISTR Y ORDERABLES Performing Organization Address [facility] Co de Phone Number [facility] * CHROMATIN ANTIBODY (07/19/2016 10:05 AM PIPE BOWL PAINT TRIMMER) Anti-Chromatin Antibody <0.2 0.0 - 0.9 AI [facility] ([facility] Blood specimen (specimen) BLOOD SPECIMEN / Unknown 07/19/2016 10:05 AM PIPE BOWL PAINT TRIMMER 07/19/2016 10:05 AM PIPE BOWL PAINT TRIMMER Narrative [facility] - 07/20/2016 1:09 PM PIPE BOWL PAINT TRIMMER Performed at: [employer] [facility] [id number] Alterations Workroom Clerk: Titi Ornelas PhD, Phone: [phone] Leanne Hatfield MD LAB - SEROLOGY ORDERABLES Performing Organization Address City/[facility]/ZIP Co de Phone Number [facility] * (ABNORMAL) C-REACTIVE PROTEIN (07/19/2016 10:05 AM PIPE BOWL PAINT TRIMMER) C-Reactive Protein 1.8(H) <=0.5 mg/dL [facility] Blood specimen (specimen) BLOOD SPECIMEN / Unknown 07/19/2016 10:05 AM PIPE BOWL PAINT TRIMMER 07/19/2016 10:05 AM PIPE BOWL PAINT TRIMMER Leanne Hatfield MD LAB - CHEMISTR Y ORDERABLES Performing Organization Address [facility] Co de Phone Number [address] [phone] * ALDOLASE (07/19/2016 10:05 AM PIPE BOWL PAINT TRIMMER) Aldolase 6.4 3.3 - 10.3 U/L [facility]) Blood specimen (specimen) BLOOD SPECIMEN / Unknown 07/19/2016 10:05 AM PIPE BOWL PAINT TRIMMER 07/19/2016 10:05 AM PIPE BOWL PAINT TRIMMER Narrative [facility] - 07/20/2016 3:12 PM PIPE BOWL PAINT TRIMMER Performed at: - [address] [id number] Alterations Workroom Clerk: Titi Ornelas PhD, Phone: [phone] Leanne Hatfield MD LAB - CHEMISTR Y ORDERABLES Performing Organization Address [facility] Co de Phone Number [facility] * CYCLIC CITRUL PEPTIDE AB IGG (CCP) (07/19/2016 10:05 AM PIPE BOWL PAINT TRIMMER) CCP Antibody IgG <0.5 <5.0 U/mL [facility] Blood specimen (specimen) BLOOD SPECIMEN / Unknown 07/19/2016 10:05 AM PIPE BOWL PAINT TRIMMER 07/19/2016 10:05 AM PIPE BOWL PAINT TRIMMER Leanne Hatfield MD LAB - CHEMISTR Y ORDERABLES Performing Organization Address City/[facility]/ZIP Co de Phone Number [address] [phone] * HEPATITIS B SURFACE ANTIGEN W RFLX CONFIRMATION (07/19/2016 10:05 AM PIPE BOWL PAINT TRIMMER) Hepatitis B Virus Surface Antigen Non-reacti ve Non-reacti ve [facility] Blood specimen (specimen) BLOOD SPECIMEN / Unknown 07/19/2016 10:05 AM PIPE BOWL PAINT TRIMMER 07/19/2016 10:05 AM PIPE BOWL PAINT TRIMMER Leanne Hatfield MD LAB - CHEMISTR Y ORDERABLES Performing Organization Address [facility] Co de Phone Number [address] [phone] * HEPATITIS C ANTIBODY (07/19/2016 10:05 AM PIPE BOWL PAINT TRIMMER) Pathologist [facility] Hepatitis C Antibody Non-react austin Non-reac tive [facility] Comment: Hepatitis C Antibody screen indicates no serologic evidence of past or current infection with Hepatitis C Virus. Patients with unexplained liver disease who are immunocompromised or suspected of having acute Hepatitis C infection may benefit from Nucleic Acid Test (MILADIS) for Hepatitis C Viral RNA to confirm Hepatitis C status. Blood specimen (specimen) BLOOD SPECIMEN / Unknown 07/19/2016 10:05 AM PIPE BOWL PAINT TRIMMER 07/19/2016 10:05 AM PIPE BOWL PAINT TRIMMER Leanne Hatfield MD LAB - CHEMISTR Y ORDERABLES Performing Organization Address City/[facility]/ZIP Co de Phone Number [address] [phone] * THYROID PEROXIDASE ANTIBODY (07/19/2016 10:04 AM PIPE BOWL PAINT TRIMMER) Thyroid Peroxidase TPO Antibody 8 0 - 34 IU/mL [facility] Blood specimen (specimen) BLOOD SPECIMEN / Unknown 07/19/2016 10:04 AM PIPE BOWL PAINT TRIMMER 07/19/2016 10:04 AM PIPE BOWL PAINT TRIMMER Narrative [facility] ([facility]) - 07/20/2016 6:11 AM PIPE BOWL PAINT TRIMMER Performed at: 01 - Lab[address] [id number] Alterations Workroom Clerk: Titi Ornelas PhD, Phone: [phone] Leanne Hatfield MD LAB - CHEMISTR Y ORDERABLES Performing Organization Address City/[facility] Co de Phone Number [facility] * THYROGLOBULIN ANTIBODY (07/19/2016 10:04 AM PIPE BOWL PAINT TRIMMER) Thyroglobulin Antibody <1.0 0.0 - 0.9 IU/mL [facility] ([facility] Comment:Thyroglobulin Antibo dy measured by Johnny Lincoln Methodology Blood specimen (specimen) BLOOD SPECIMEN / Unknown 07/19/2016 10:04 AM PIPE BOWL PAINT TRIMMER 07/19/2016 10:04 AM PIPE BOWL PAINT TRIMMER Narrative [facility] - 07/20/2016 1:09 PM PIPE BOWL PAINT TRIMMER Performed at: [employer] [facility] [id number] Alterations Workroom Clerk: Titi Ornelas PhD, Phone: [phone] Leanne Hatfield MD LAB - CHEMISTR Y ORDERABLES Performing Organization Address [facility] Co de Phone Number [facility] * XR KNEE RIGHT 3VW (07/19/2016 9:54 AM PIPE BOWL PAINT TRIMMER) Anatomical Region Laterality Modality Lower Extremity Other Impressions 07/19/2016 12:10 PM PIPE BOWL PAINT TRIMMER Impression: 1. Normal radiographs of the right hand. 2. Mild cortical irregularity along the ulnar aspects of the second through fourth middle phalanges, which may represent erosions. An oblique radiograph of the left hand would be helpful for further evaluation. 3. Normal radiographs of the bilateral wrists. 4. Sclerotic lesion in the distal right femur measuring 8.7 x 3.8 x 2.1 cm without associated cortical destruction, periosteal reaction, or soft tissue mass. Differential diagnosis includes bone infarct, nonossifying fibroma, and a giant bone island. Short-term interval follow-up radiographs are recommended to document stability. Alternatively MRI of the knee can be obtained for further evaluation if not recently performed. 5. Normal radiographs of the left knee. 6. Bilateral plantar and posterior calcaneal enthesophytes. This report has been dictated by Miranda Gloria M.D. (Resident). This report was approved by Miranda Gloria M.D. on 07/19/2016 11:40 AM . IDr. KARINA M.D. have personally reviewed and interpreted this examination/study. This report was electronically signed by KARINA ARORA M.D. on 07/19/2016 12:10 PM . 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 Right hand, 2 views 2. Left hand, 2 views 3. Right wrist, 2 views 4. Left wrist, 2 views 5. Right knee, 3 views 6. Left knee, 3 views 7. Right ankle, 2 views 8. Left ankle, 2 views Date: 07/19/2016 History: 51-year-old female with arthralgia. Comparison: No prior studies are available for comparison. Findings: Right hand: There is no acute fracture or dislocation. No osseous erosions are present. The joint spaces are preserved. No focal soft tissue swelling is present. The osseous density is normal. Left hand: There is no acute fracture or dislocation. Cortical irregularity along the ulnar aspect of the second, third, and fourth middle phalanges may represent erosions. Minimal degenerative changes are present at the first interphalangeal joint. No focal soft tissue swelling is present. The osseous density is normal. Right wrist: There is no acute fracture or dislocation. No osseous erosions are present. The joint spaces are preserved. No focal soft tissue swelling is present. The osseous density is normal. Left wrist: There is no acute fracture or dislocation. No osseous erosions are present. The joint spaces are preserved. No focal soft tissue swelling is present. The osseous density is normal. Right knee: There is no acute fracture or dislocation. No osseous erosions are present. A sclerotic lesion in the distal femoral diaphysis and metadiaphysis with a narrow zone of transition measures approximately 8.7 x 3.8 x 2.1 cm. There is no associated cortical destruction, periosteal reaction, or soft tissue mass. The joint spaces are preserved. No soft tissue swelling or knee joint effusion is present. Left knee: There is no acute fracture or dislocation. No osseous erosions are present. The joint spaces are preserved. No soft tissue swelling or knee joint effusion is present. The osseous density is normal. Right ankle: There is no acute fracture or dislocation. No osseous erosions are present. The ankle mortise appears intact on these nonweightbearing images. Plantar and posterior calcaneal enthesophytes are noted. No focal soft tissue swelling or ankle joint effusion is present. The osseous density is normal. Left ankle: There is no acute fracture or dislocation. No osseous erosions are present. The ankle mortise appears intact on these nonweightbearing images. Posterior and plantar calcaneal enthesophytes are noted. No focal soft tissue swelling or ankle joint effusion is present. The osseous density is normal. Procedure Note Karina Arora MD - 10/19/2017 Exam: 1. Right hand, 2 views 2. Left hand, 2 views 3. Right wrist, 2 views 4. Left wrist, 2 views 5. Right knee, 3 views 6. Left knee, 3 views 7. Right ankle, 2 views 8. Left ankle, 2 views Date: 07/19/2016 History: 51-year-old female with arthralgia. Comparison: No prior studies are available for comparison. Findings: Right hand: There is no acute fracture or dislocation. No osseous erosions arepresent. The joint spaces are preserved. No focal soft tissue swelling ispresent. The osseous density is normal. Left hand: There is no acute fracture or dislocation. Cortical irregularity along theulnar aspect of the second, third, and fourth middle phalanges mayrepresent erosions. Minimal degenerative changes are present at the firstinterphalangeal joint. No focal soft tissue swelling is present. The osseous density is normal. Right wrist: There is no acute fracture or dislocation. No osseous erosions arepresent. The joint spaces are preserved. No focal soft tissue swelling ispresent. The osseous density is normal. Left wrist: There is no acute fracture or dislocation. No osseous erosions arepresent. The joint spaces are preserved. No focal soft tissue swelling ispresent. The osseous density is normal. Right knee: There is no acute fracture or dislocation. No osseous erosions arepresent. A sclerotic lesion in the distal femoral diaphysis andmetadiaphysis with a narrow zone of transition measures approximately 8.7x 3.8 x 2.1 cm. There is no associated cortical destruction, periosteal reaction, or soft tissue mass. The joint spacesare preserved. No soft tissue swelling or knee joint effusion ispresent. Left knee: There is no acute fracture or dislocation. No osseous erosions arepresent. The joint spaces are preserved. No soft tissue swelling or kneejoint effusion is present. The osseous density is normal. Right ankle: There is no acute fracture or dislocation. No osseous erosions arepresent. The ankle mortise appears intact on these nonweightbearingimages. Plantar and posterior calcaneal enthesophytes are noted. No focalsoft tissue swelling or ankle joint effusion is present. The osseous density is normal. Left ankle: There is no acute fracture or dislocation. No osseous erosions arepresent. The ankle mortise appears intact on these nonweightbearingimages. Posterior and plantar calcaneal enthesophytes are noted. No focalsoft tissue swelling or ankle joint effusion is present. The osseous density is normal. IMPRESSION Impression: 1. Normal radiographs of the right hand. 2. Mild cortical irregularity along the ulnar aspects of the secondthrough fourth middle phalanges, which may represent erosions. An obliqueradiograph of the left hand would be helpful for further evaluation. 3. Normal radiographs of the bilateral wrists. 4. Sclerotic lesion in the distal right femur measuring 8.7 x 3.8 x 2.1 cmwithout associated cortical destruction, periosteal reaction, or softtissue mass. Differential diagnosis includes bone infarct, nonossifyingfibroma, and a giant bone island. Short-term interval follow-up radiographs are recommended to documentstability. Alternatively MRI of the knee can be obtained for furtherevaluation if not recently performed. 5. Normal radiographs of the left knee. 6. Bilateral plantar and posterior calcaneal enthesophytes. This report has been dictated by Miranda Gloria M.D. (Resident). This report was approved by Miranda Gloria M.D. on 07/19/2016 11:40 AM . IDr. KARINA M.D. have personally reviewed and interpreted thisexamination/study. This report was electronically signed by KARINA ARORA M.D. on07/19/2016 12:10 PM . Leanne Hatfield MD DIAGNOSTIC [facility] ORDERABLES * XR ANKLE RIGHT 2VW (07/19/2016 9:54 AM [employer]) Anatomical Region Laterality Modality Lower Extremity Other Impressions 07/19/2016 12:10 PM [employer] Impression: 1. Normal radiographs of the right hand. 2. Mild cortical irregularity along the ulnar aspects of the second through fourth middle phalanges, which may represent erosions. An oblique radiograph of the left hand would be helpful for further evaluation. 3. Normal radiographs of the bilateral wrists. 4. Sclerotic lesion in the distal right femur measuring 8.7 x 3.8 x 2.1 cm without associated cortical destruction, periosteal reaction, or soft tissue mass. Differential diagnosis includes bone infarct, nonossifying fibroma, and a giant bone island. Short-term interval follow-up radiographs are recommended to document stability. Alternatively MRI of the knee can be obtained for further evaluation if not recently performed. 5. Normal radiographs of the left knee. 6. Bilateral plantar and posterior calcaneal enthesophytes. This report has been dictated by Miranda Gloria M.D. (Resident). This report was approved by Miranda Gloria M.D. on 07/19/2016 11:40 AM . I, Dr. KARINA ARORA M.D. have personally reviewed and interpreted this examination/study. This report was electronically signed by KARINA ARORA M.D. on 07/19/2016 12:10 PM . 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 Right hand, 2 views 2. Left hand, 2 views 3. Right wrist, 2 views 4. Left wrist, 2 views 5. Right knee, 3 views 6. Left knee, 3 views 7. Right ankle, 2 views 8. Left ankle, 2 views Date: 07/19/2016 History: 51-year-old female with arthralgia. Comparison: No prior studies are available for comparison. Findings: Right hand: There is no acute fracture or dislocation. No osseous erosions are present. The joint spaces are preserved. No focal soft tissue swelling is present. The osseous density is normal. Left hand: There is no acute fracture or dislocation. Cortical irregularity along the ulnar aspect of the second, third, and fourth middle phalanges may represent erosions. Minimal degenerative changes are present at the first interphalangeal joint. No focal soft tissue swelling is present. The osseous density is normal. Right wrist: There is no acute fracture or dislocation. No osseous erosions are present. The joint spaces are preserved. No focal soft tissue swelling is present. The osseous density is normal. Left wrist: There is no acute fracture or dislocation. No osseous erosions are present. The joint spaces are preserved. No focal soft tissue swelling is present. The osseous density is normal. Right knee: There is no acute fracture or dislocation. No osseous erosions are present. A sclerotic lesion in the distal femoral diaphysis and metadiaphysis with a narrow zone of transition measures approximately 8.7 x 3.8 x 2.1 cm. There is no associated cortical destruction, periosteal reaction, or soft tissue mass. The joint spaces are preserved. No soft tissue swelling or knee joint effusion is present. Left knee: There is no acute fracture or dislocation. No osseous erosions are present. The joint spaces are preserved. No soft tissue swelling or knee joint effusion is present. The osseous density is normal. Right ankle: There is no acute fracture or dislocation. No osseous erosions are present. The ankle mortise appears intact on these nonweightbearing images. Plantar and posterior calcaneal enthesophytes are noted. No focal soft tissue swelling or ankle joint effusion is present. The osseous density is normal. Left ankle: There is no acute fracture or dislocation. No osseous erosions are present. The ankle mortise appears intact on these nonweightbearing images. Posterior and plantar calcaneal enthesophytes are noted. No focal soft tissue swelling or ankle joint effusion is present. The osseous density is normal. Procedure Note Karina Arora MD - 10/19/2017 Exam: 1. Right hand, 2 views 2. Left hand, 2 views 3. Right wrist, 2 views 4. Left wrist, 2 views 5. Right knee, 3 views 6. Left knee, 3 views 7. Right ankle, 2 views 8. Left ankle, 2 views Date: 07/19/2016 History: 51-year-old female with arthralgia. Comparison: No prior studies are available for comparison. Findings: Right hand: There is no acute fracture or dislocation. No osseous erosions arepresent. The joint spaces are preserved. No focal soft tissue swelling ispresent. The osseous density is normal. Left hand: There is no acute fracture or dislocation. Cortical irregularity along theulnar aspect of the second, third, and fourth middle phalanges mayrepresent erosions. Minimal degenerative changes are present at the firstinterphalangeal joint. No focal soft tissue swelling is present. The osseous density is normal. Right wrist: There is no acute fracture or dislocation. No osseous erosions arepresent. The joint spaces are preserved. No focal soft tissue swelling ispresent. The osseous density is normal. Left wrist: There is no acute fracture or dislocation. No osseous erosions arepresent. The joint spaces are preserved. No focal soft tissue swelling ispresent. The osseous density is normal. Right knee: There is no acute fracture or dislocation. No osseous erosions arepresent. A sclerotic lesion in the distal femoral diaphysis andmetadiaphysis with a narrow zone of transition measures approximately 8.7x 3.8 x 2.1 cm. There is no associated cortical destruction, periosteal reaction, or soft tissue mass. The joint spacesare preserved. No soft tissue swelling or knee joint effusion ispresent. Left knee: There is no acute fracture or dislocation. No osseous erosions arepresent. The joint spaces are preserved. No soft tissue swelling or kneejoint effusion is present. The osseous density is normal. Right ankle: There is no acute fracture or dislocation. No osseous erosions arepresent. The ankle mortise appears intact on these nonweightbearingimages. Plantar and posterior calcaneal enthesophytes are noted. No focalsoft tissue swelling or ankle joint effusion is present. The osseous density is normal. Left ankle: There is no acute fracture or dislocation. No osseous erosions arepresent. The ankle mortise appears intact on these nonweightbearingimages. Posterior and plantar calcaneal enthesophytes are noted. No focalsoft tissue swelling or ankle joint effusion is present. The osseous density is normal. IMPRESSION Impression: 1. Normal radiographs of the right hand. 2. Mild cortical irregularity along the ulnar aspects of the secondthrough fourth middle phalanges, which may represent erosions. An obliqueradiograph of the left hand would be helpful for further evaluation. 3. Normal radiographs of the bilateral wrists. 4. Sclerotic lesion in the distal right femur measuring 8.7 x 3.8 x 2.1 cmwithout associated cortical destruction, periosteal reaction, or softtissue mass. Differential diagnosis includes bone infarct, nonossifyingfibroma, and a giant bone island. Short-term interval follow-up radiographs are recommended to documentstability. Alternatively MRI of the knee can be obtained for furtherevaluation if not recently performed. 5. Normal radiographs of the left knee. 6. Bilateral plantar and posterior calcaneal enthesophytes. This report has been dictated by Miranda Gloria M.D. (Resident). This report was approved by Miranda Gloria M.D. on 07/19/2016 11:[address] KARINA Diallo M.D. have personally reviewed and interpreted thisexamination/study. This report was electronically signed by KARINA ARORA M.D. on07/19/2016 12:10 PM . Leanne Hatfield MD DIAGNOSTIC [facility] ORDERABLES * XR ANKLE LEFT 2VW (07/19/2016 9:54 AM [employer]) Anatomical Region Laterality Modality Lower Extremity Other Impressions 07/19/2016 12:10 PM [employer] Impression: 1. Normal radiographs of the right hand. 2. Mild cortical irregularity along the ulnar aspects of the second through fourth middle phalanges, which may represent erosions. An oblique radiograph of the left hand would be helpful for further evaluation. 3. Normal radiographs of the bilateral wrists. 4. Sclerotic lesion in the distal right femur measuring 8.7 x 3.8 x 2.1 cm without associated cortical destruction, periosteal reaction, or soft tissue mass. Differential diagnosis includes bone infarct, nonossifying fibroma, and a giant bone island. Short-term interval follow-up radiographs are recommended to document stability. Alternatively MRI of the knee can be obtained for further evaluation if not recently performed. 5. Normal radiographs of the left knee. 6. Bilateral plantar and posterior calcaneal enthesophytes. This report has been dictated by Miranda Gloria M.D. (Resident). This report was approved by Miranda Gloria M.D. on 07/19/2016 11:[address] KARINA Diallo M.D. have personally reviewed and interpreted this examination/study. This report was electronically signed by KARINA ARORA M.D. on 07/19/2016 12:10 PM . 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 Right hand, 2 views 2. Left hand, 2 views 3. Right wrist, 2 views 4. Left wrist, 2 views 5. Right knee, 3 views 6. Left knee, 3 views 7. Right ankle, 2 views 8. Left ankle, 2 views Date: 07/19/2016 History: 51-year-old female with arthralgia. Comparison: No prior studies are available for comparison. Findings: Right hand: There is no acute fracture or dislocation. No osseous erosions are present. The joint spaces are preserved. No focal soft tissue swelling is present. The osseous density is normal. Left hand: There is no acute fracture or dislocation. Cortical irregularity along the ulnar aspect of the second, third, and fourth middle phalanges may represent erosions. Minimal degenerative changes are present at the first interphalangeal joint. No focal soft tissue swelling is present. The osseous density is normal. Right wrist: There is no acute fracture or dislocation. No osseous erosions are present. The joint spaces are preserved. No focal soft tissue swelling is present. The osseous density is normal. Left wrist: There is no acute fracture or dislocation. No osseous erosions are present. The joint spaces are preserved. No focal soft tissue swelling is present. The osseous density is normal. Right knee: There is no acute fracture or dislocation. No osseous erosions are present. A sclerotic lesion in the distal femoral diaphysis and metadiaphysis with a narrow zone of transition measures approximately 8.7 x 3.8 x 2.1 cm. There is no associated cortical destruction, periosteal reaction, or soft tissue mass. The joint spaces are preserved. No soft tissue swelling or knee joint effusion is present. Left knee: There is no acute fracture or dislocation. No osseous erosions are present. The joint spaces are preserved. No soft tissue swelling or knee joint effusion is present. The osseous density is normal. Right ankle: There is no acute fracture or dislocation. No osseous erosions are present. The ankle mortise appears intact on these nonweightbearing images. Plantar and posterior calcaneal enthesophytes are noted. No focal soft tissue swelling or ankle joint effusion is present. The osseous density is normal. Left ankle: There is no acute fracture or dislocation. No osseous erosions are present. The ankle mortise appears intact on these nonweightbearing images. Posterior and plantar calcaneal enthesophytes are noted. No focal soft tissue swelling or ankle joint effusion is present. The osseous density is normal. Procedure Note Karina Arora MD - 10/19/2017 Exam: 1. Right hand, 2 views 2. Left hand, 2 views 3. Right wrist, 2 views 4. Left wrist, 2 views 5. Right knee, 3 views 6. Left knee, 3 views 7. Right ankle, 2 views 8. Left ankle, 2 views Date: 07/19/2016 History: 51-year-old female with arthralgia. Comparison: No prior studies are available for comparison. Findings: Right hand: There is no acute fracture or dislocation. No osseous erosions arepresent. The joint spaces are preserved. No focal soft tissue swelling ispresent. The osseous density is normal. Left hand: There is no acute fracture or dislocation. Cortical irregularity along theulnar aspect of the second, third, and fourth middle phalanges mayrepresent erosions. Minimal degenerative changes are present at the firstinterphalangeal joint. No focal soft tissue swelling is present. The osseous density is normal. Right wrist: There is no acute fracture or dislocation. No osseous erosions arepresent. The joint spaces are preserved. No focal soft tissue swelling ispresent. The osseous density is normal. Left wrist: There is no acute fracture or dislocation. No osseous erosions arepresent. The joint spaces are preserved. No focal soft tissue swelling ispresent. The osseous density is normal. Right knee: There is no acute fracture or dislocation. No osseous erosions arepresent. A sclerotic lesion in the distal femoral diaphysis andmetadiaphysis with a narrow zone of transition measures approximately 8.7x 3.8 x 2.1 cm. There is no associated cortical destruction, periosteal reaction, or soft tissue mass. The joint spacesare preserved. No soft tissue swelling or knee joint effusion ispresent. Left knee: There is no acute fracture or dislocation. No osseous erosions arepresent. The joint spaces are preserved. No soft tissue swelling or kneejoint effusion is present. The osseous density is normal. Right ankle: There is no acute fracture or dislocation. No osseous erosions arepresent. The ankle mortise appears intact on these nonweightbearingimages. Plantar and posterior calcaneal enthesophytes are noted. No focalsoft tissue swelling or ankle joint effusion is present. The osseous density is normal. Left ankle: There is no acute fracture or dislocation. No osseous erosions arepresent. The ankle mortise appears intact on these nonweightbearingimages. Posterior and plantar calcaneal enthesophytes are noted. No focalsoft tissue swelling or ankle joint effusion is present. The osseous density is normal. IMPRESSION Impression: 1. Normal radiographs of the right hand. 2. Mild cortical irregularity along the ulnar aspects of the secondthrough fourth middle phalanges, which may represent erosions. An obliqueradiograph of the left hand would be helpful for further evaluation. 3. Normal radiographs of the bilateral wrists. 4. Sclerotic lesion in the distal right femur measuring 8.7 x 3.8 x 2.1 cmwithout associated cortical destruction, periosteal reaction, or softtissue mass. Differential diagnosis includes bone infarct, nonossifyingfibroma, and a giant bone island. Short-term interval follow-up radiographs are recommended to documentstability. Alternatively MRI of the knee can be obtained for furtherevaluation if not recently performed. 5. Normal radiographs of the left knee. 6. Bilateral plantar and posterior calcaneal enthesophytes. This report has been dictated by Miranda Gloria M.D. (Resident). This report was approved by Miranda Gloria M.D. on 07/19/2016 11:40 AM . I, Dr. KARINA ARORA M.D. have personally reviewed and interpreted thisexamination/study. This report was electronically signed by KARINA ARORA M.D. on07/19/2016 12:10 PM . Leanne Hatfield MD DIAGNOSTIC [facility] ORDERABLES * XR KNEE LEFT 3VW (07/19/2016 9:54 AM [employer]) Anatomical Region Laterality Modality Lower Extremity Other Impressions 07/19/2016 12:10 PM [employer] Impression: 1. Normal radiographs of the right hand. 2. Mild cortical irregularity along the ulnar aspects of the second through fourth middle phalanges, which may represent erosions. An oblique radiograph of the left hand would be helpful for further evaluation. 3. Normal radiographs of the bilateral wrists. 4. Sclerotic lesion in the distal right femur measuring 8.7 x 3.8 x 2.1 cm without associated cortical destruction, periosteal reaction, or soft tissue mass. Differential diagnosis includes bone infarct, nonossifying fibroma, and a giant bone island. Short-term interval follow-up radiographs are recommended to document stability. Alternatively MRI of the knee can be obtained for further evaluation if not recently performed. 5. Normal radiographs of the left knee. 6. Bilateral plantar and posterior calcaneal enthesophytes. This report has been dictated by Miranda Gloria M.D. (Resident). This report was approved by Miranda Gloria M.D. on 07/19/2016 11:40 AM . I, Dr. KARINA ARORA M.D. have personally reviewed and interpreted this examination/study. This report was electronically signed by KARINA ARORA M.D. on 07/19/2016 12:10 PM . 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 Right hand, 2 views 2. Left hand, 2 views 3. Right wrist, 2 views 4. Left wrist, 2 views 5. Right knee, 3 views 6. Left knee, 3 views 7. Right ankle, 2 views 8. Left ankle, 2 views Date: 07/19/2016 History: 51-year-old female with arthralgia. Comparison: No prior studies are available for comparison. Findings: Right hand: There is no acute fracture or dislocation. No osseous erosions are present. The joint spaces are preserved. No focal soft tissue swelling is present. The osseous density is normal. Left hand: There is no acute fracture or dislocation. Cortical irregularity along the ulnar aspect of the second, third, and fourth middle phalanges may represent erosions. Minimal degenerative changes are present at the first interphalangeal joint. No focal soft tissue swelling is present. The osseous density is normal. Right wrist: There is no acute fracture or dislocation. No osseous erosions are present. The joint spaces are preserved. No focal soft tissue swelling is present. The osseous density is normal. Left wrist: There is no acute fracture or dislocation. No osseous erosions are present. The joint spaces are preserved. No focal soft tissue swelling is present. The osseous density is normal. Right knee: There is no acute fracture or dislocation. No osseous erosions are present. A sclerotic lesion in the distal femoral diaphysis and metadiaphysis with a narrow zone of transition measures approximately 8.7 x 3.8 x 2.1 cm. There is no associated cortical destruction, periosteal reaction, or soft tissue mass. The joint spaces are preserved. No soft tissue swelling or knee joint effusion is present. Left knee: There is no acute fracture or dislocation. No osseous erosions are present. The joint spaces are preserved. No soft tissue swelling or knee joint effusion is present. The osseous density is normal. Right ankle: There is no acute fracture or dislocation. No osseous erosions are present. The ankle mortise appears intact on these nonweightbearing images. Plantar and posterior calcaneal enthesophytes are noted. No focal soft tissue swelling or ankle joint effusion is present. The osseous density is normal. Left ankle: There is no acute fracture or dislocation. No osseous erosions are present. The ankle mortise appears intact on these nonweightbearing images. Posterior and plantar calcaneal enthesophytes are noted. No focal soft tissue swelling or ankle joint effusion is present. The osseous density is normal. Procedure Note Karina Arora MD - 10/19/2017 Exam: 1. Right hand, 2 views 2. Left hand, 2 views 3. Right wrist, 2 views 4. Left wrist, 2 views 5. Right knee, 3 views 6. Left knee, 3 views 7. Right ankle, 2 views 8. Left ankle, 2 views Date: 07/19/2016 History: 51-year-old female with arthralgia. Comparison: No prior studies are available for comparison. Findings: Right hand: There is no acute fracture or dislocation. No osseous erosions arepresent. The joint spaces are preserved. No focal soft tissue swelling ispresent. The osseous density is normal. Left hand: There is no acute fracture or dislocation. Cortical irregularity along theulnar aspect of the second, third, and fourth middle phalanges mayrepresent erosions. Minimal degenerative changes are present at the firstinterphalangeal joint. No focal soft tissue swelling is present. The osseous density is normal. Right wrist: There is no acute fracture or dislocation. No osseous erosions arepresent. The joint spaces are preserved. No focal soft tissue swelling ispresent. The osseous density is normal. Left wrist: There is no acute fracture or dislocation. No osseous erosions arepresent. The joint spaces are preserved. No focal soft tissue swelling ispresent. The osseous density is normal. Right knee: There is no acute fracture or dislocation. No osseous erosions arepresent. A sclerotic lesion in the distal femoral diaphysis andmetadiaphysis with a narrow zone of transition measures approximately 8.7x 3.8 x 2.1 cm. There is no associated cortical destruction, periosteal reaction, or soft tissue mass. The joint spacesare preserved. No soft tissue swelling or knee joint effusion ispresent. Left knee: There is no acute fracture or dislocation. No osseous erosions arepresent. The joint spaces are preserved. No soft tissue swelling or kneejoint effusion is present. The osseous density is normal. Right ankle: There is no acute fracture or dislocation. No osseous erosions arepresent. The ankle mortise appears intact on these nonweightbearingimages. Plantar and posterior calcaneal enthesophytes are noted. No focalsoft tissue swelling or ankle joint effusion is present. The osseous density is normal. Left ankle: There is no acute fracture or dislocation. No osseous erosions arepresent. The ankle mortise appears intact on these nonweightbearingimages. Posterior and plantar calcaneal enthesophytes are noted. No focalsoft tissue swelling or ankle joint effusion is present. The osseous density is normal. IMPRESSION Impression: 1. Normal radiographs of the right hand. 2. Mild cortical irregularity along the ulnar aspects of the secondthrough fourth middle phalanges, which may represent erosions. An obliqueradiograph of the left hand would be helpful for further evaluation. 3. Normal radiographs of the bilateral wrists. 4. Sclerotic lesion in the distal right femur measuring 8.7 x 3.8 x 2.1 cmwithout associated cortical destruction, periosteal reaction, or softtissue mass. Differential diagnosis includes bone infarct, nonossifyingfibroma, and a giant bone island. Short-term interval follow-up radiographs are recommended to documentstability. Alternatively MRI of the knee can be obtained for furtherevaluation if not recently performed. 5. Normal radiographs of the left knee. 6. Bilateral plantar and posterior calcaneal enthesophytes. This report has been dictated by Miranda Gloria M.D. (Resident). This report was approved by Miranda Gloria M.D. on 07/19/2016 11:[address] KARINA Diallo M.D. have personally reviewed and interpreted thisexamination/study. This report was electronically signed by KARINA ARORA M.D. on07/19/2016 12:10 PM . Leanne Hatfield MD DIAGNOSTIC [facility] ORDERABLES * XR HAND RIGHT 2VW (07/19/2016 9:54 AM [employer]) Anatomical Region Laterality Modality Wrist / Hand Other Impressions 07/19/2016 12:10 PM [employer] Impression: 1. Normal radiographs of the right hand. 2. Mild cortical irregularity along the ulnar aspects of the second through fourth middle phalanges, which may represent erosions. An oblique radiograph of the left hand would be helpful for further evaluation. 3. Normal radiographs of the bilateral wrists. 4. Sclerotic lesion in the distal right femur measuring 8.7 x 3.8 x 2.1 cm without associated cortical destruction, periosteal reaction, or soft tissue mass. Differential diagnosis includes bone infarct, nonossifying fibroma, and a giant bone island. Short-term interval follow-up radiographs are recommended to document stability. Alternatively MRI of the knee can be obtained for further evaluation if not recently performed. 5. Normal radiographs of the left knee. 6. Bilateral plantar and posterior calcaneal enthesophytes. This report has been dictated by Miranda Gloria M.D. (Resident). This report was approved by Miranda Gloria M.D. on 07/19/2016 11:[address] KARINA Diallo M.D. have personally reviewed and interpreted this examination/study. This report was electronically signed by KARINA ARORA M.D. on 07/19/2016 12:10 PM . 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 Right hand, 2 views 2. Left hand, 2 views 3. Right wrist, 2 views 4. Left wrist, 2 views 5. Right knee, 3 views 6. Left knee, 3 views 7. Right ankle, 2 views 8. Left ankle, 2 views Date: 07/19/2016 History: 51-year-old female with arthralgia. Comparison: No prior studies are available for comparison. Findings: Right hand: There is no acute fracture or dislocation. No osseous erosions are present. The joint spaces are preserved. No focal soft tissue swelling is present. The osseous density is normal. Left hand: There is no acute fracture or dislocation. Cortical irregularity along the ulnar aspect of the second, third, and fourth middle phalanges may represent erosions. Minimal degenerative changes are present at the first interphalangeal joint. No focal soft tissue swelling is present. The osseous density is normal. Right wrist: There is no acute fracture or dislocation. No osseous erosions are present. The joint spaces are preserved. No focal soft tissue swelling is present. The osseous density is normal. Left wrist: There is no acute fracture or dislocation. No osseous erosions are present. The joint spaces are preserved. No focal soft tissue swelling is present. The osseous density is normal. Right knee: There is no acute fracture or dislocation. No osseous erosions are present. A sclerotic lesion in the distal femoral diaphysis and metadiaphysis with a narrow zone of transition measures approximately 8.7 x 3.8 x 2.1 cm. There is no associated cortical destruction, periosteal reaction, or soft tissue mass. The joint spaces are preserved. No soft tissue swelling or knee joint effusion is present. Left knee: There is no acute fracture or dislocation. No osseous erosions are present. The joint spaces are preserved. No soft tissue swelling or knee joint effusion is present. The osseous density is normal. Right ankle: There is no acute fracture or dislocation. No osseous erosions are present. The ankle mortise appears intact on these nonweightbearing images. Plantar and posterior calcaneal enthesophytes are noted. No focal soft tissue swelling or ankle joint effusion is present. The osseous density is normal. Left ankle: There is no acute fracture or dislocation. No osseous erosions are present. The ankle mortise appears intact on these nonweightbearing images. Posterior and plantar calcaneal enthesophytes are noted. No focal soft tissue swelling or ankle joint effusion is present. The osseous density is normal. Procedure Note Karina Arora MD - 10/19/2017 Exam: 1. Right hand, 2 views 2. Left hand, 2 views 3. Right wrist, 2 views 4. Left wrist, 2 views 5. Right knee, 3 views 6. Left knee, 3 views 7. Right ankle, 2 views 8. Left ankle, 2 views Date: 07/19/2016 History: 51-year-old female with arthralgia. Comparison: No prior studies are available for comparison. Findings: Right hand: There is no acute fracture or dislocation. No osseous erosions arepresent. The joint spaces are preserved. No focal soft tissue swelling ispresent. The osseous density is normal. Left hand: There is no acute fracture or dislocation. Cortical irregularity along theulnar aspect of the second, third, and fourth middle phalanges mayrepresent erosions. Minimal degenerative changes are present at the firstinterphalangeal joint. No focal soft tissue swelling is present. The osseous density is normal. Right wrist: There is no acute fracture or dislocation. No osseous erosions arepresent. The joint spaces are preserved. No focal soft tissue swelling ispresent. The osseous density is normal. Left wrist: There is no acute fracture or dislocation. No osseous erosions arepresent. The joint spaces are preserved. No focal soft tissue swelling ispresent. The osseous density is normal. Right knee: There is no acute fracture or dislocation. No osseous erosions arepresent. A sclerotic lesion in the distal femoral diaphysis andmetadiaphysis with a narrow zone of transition measures approximately 8.7x 3.8 x 2.1 cm. There is no associated cortical destruction, periosteal reaction, or soft tissue mass. The joint spacesare preserved. No soft tissue swelling or knee joint effusion ispresent. Left knee: There is no acute fracture or dislocation. No osseous erosions arepresent. The joint spaces are preserved. No soft tissue swelling or kneejoint effusion is present. The osseous density is normal. Right ankle: There is no acute fracture or dislocation. No osseous erosions arepresent. The ankle mortise appears intact on these nonweightbearingimages. Plantar and posterior calcaneal enthesophytes are noted. No focalsoft tissue swelling or ankle joint effusion is present. The osseous density is normal. Left ankle: There is no acute fracture or dislocation. No osseous erosions arepresent. The ankle mortise appears intact on these nonweightbearingimages. Posterior and plantar calcaneal enthesophytes are noted. No focalsoft tissue swelling or ankle joint effusion is present. The osseous density is normal. IMPRESSION Impression: 1. Normal radiographs of the right hand. 2. Mild cortical irregularity along the ulnar aspects of the secondthrough fourth middle phalanges, which may represent erosions. An obliqueradiograph of the left hand would be helpful for further evaluation. 3. Normal radiographs of the bilateral wrists. 4. Sclerotic lesion in the distal right femur measuring 8.7 x 3.8 x 2.1 cmwithout associated cortical destruction, periosteal reaction, or softtissue mass. Differential diagnosis includes bone infarct, nonossifyingfibroma, and a giant bone island. Short-term interval follow-up radiographs are recommended to documentstability. Alternatively MRI of the knee can be obtained for furtherevaluation if not recently performed. 5. Normal radiographs of the left knee. 6. Bilateral plantar and posterior calcaneal enthesophytes. This report has been dictated by Miranda Gloria M.D. (Resident). This report was approved by Miranda Gloria M.D. on 07/19/2016 11:40 AM . I, Dr. KARINA ARORA M.D. have personally reviewed and interpreted thisexamination/study. This report was electronically signed by KARINA ARORA M.D. on07/19/2016 12:10 PM . Leanne Hatfield MD DIAGNOSTIC [facility] ORDERABLES * XR HAND LEFT 2VW (07/19/2016 9:54 AM [employer]) Anatomical Region Laterality Modality Wrist / Hand Other Impressions 07/19/2016 12:10 PM [employer] Impression: 1. Normal radiographs of the right hand. 2. Mild cortical irregularity along the ulnar aspects of the second through fourth middle phalanges, which may represent erosions. An oblique radiograph of the left hand would be helpful for further evaluation. 3. Normal radiographs of the bilateral wrists. 4. Sclerotic lesion in the distal right femur measuring 8.7 x 3.8 x 2.1 cm without associated cortical destruction, periosteal reaction, or soft tissue mass. Differential diagnosis includes bone infarct, nonossifying fibroma, and a giant bone island. Short-term interval follow-up radiographs are recommended to document stability. Alternatively MRI of the knee can be obtained for further evaluation if not recently performed. 5. Normal radiographs of the left knee. 6. Bilateral plantar and posterior calcaneal enthesophytes. This report has been dictated by Miranda Gloria M.D. (Resident). This report was approved by Miranda Gloria M.D. on 07/19/2016 11:40 AM . I, Dr. KARINA ARORA M.D. have personally reviewed and interpreted this examination/study. This report was electronically signed by KARINA ARORA M.D. on 07/19/2016 12:10 PM . 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 Right hand, 2 views 2. Left hand, 2 views 3. Right wrist, 2 views 4. Left wrist, 2 views 5. Right knee, 3 views 6. Left knee, 3 views 7. Right ankle, 2 views 8. Left ankle, 2 views Date: 07/19/2016 History: 51-year-old female with arthralgia. Comparison: No prior studies are available for comparison. Findings: Right hand: There is no acute fracture or dislocation. No osseous erosions are present. The joint spaces are preserved. No focal soft tissue swelling is present. The osseous density is normal. Left hand: There is no acute fracture or dislocation. Cortical irregularity along the ulnar aspect of the second, third, and fourth middle phalanges may represent erosions. Minimal degenerative changes are present at the first interphalangeal joint. No focal soft tissue swelling is present. The osseous density is normal. Right wrist: There is no acute fracture or dislocation. No osseous erosions are present. The joint spaces are preserved. No focal soft tissue swelling is present. The osseous density is normal. Left wrist: There is no acute fracture or dislocation. No osseous erosions are present. The joint spaces are preserved. No focal soft tissue swelling is present. The osseous density is normal. Right knee: There is no acute fracture or dislocation. No osseous erosions are present. A sclerotic lesion in the distal femoral diaphysis and metadiaphysis with a narrow zone of transition measures approximately 8.7 x 3.8 x 2.1 cm. There is no associated cortical destruction, periosteal reaction, or soft tissue mass. The joint spaces are preserved. No soft tissue swelling or knee joint effusion is present. Left knee: There is no acute fracture or dislocation. No osseous erosions are present. The joint spaces are preserved. No soft tissue swelling or knee joint effusion is present. The osseous density is normal. Right ankle: There is no acute fracture or dislocation. No osseous erosions are present. The ankle mortise appears intact on these nonweightbearing images. Plantar and posterior calcaneal enthesophytes are noted. No focal soft tissue swelling or ankle joint effusion is present. The osseous density is normal. Left ankle: There is no acute fracture or dislocation. No osseous erosions are present. The ankle mortise appears intact on these nonweightbearing images. Posterior and plantar calcaneal enthesophytes are noted. No focal soft tissue swelling or ankle joint effusion is present. The osseous density is normal. Procedure Note Karina Arora MD - 10/19/2017 Exam: 1. Right hand, 2 views 2. Left hand, 2 views 3. Right wrist, 2 views 4. Left wrist, 2 views 5. Right knee, 3 views 6. Left knee, 3 views 7. Right ankle, 2 views 8. Left ankle, 2 views Date: 07/19/2016 History: 51-year-old female with arthralgia. Comparison: No prior studies are available for comparison. Findings: Right hand: There is no acute fracture or dislocation. No osseous erosions arepresent. The joint spaces are preserved. No focal soft tissue swelling ispresent. The osseous density is normal. Left hand: There is no acute fracture or dislocation. Cortical irregularity along theulnar aspect of the second, third, and fourth middle phalanges mayrepresent erosions. Minimal degenerative changes are present at the firstinterphalangeal joint. No focal soft tissue swelling is present. The osseous density is normal. Right wrist: There is no acute fracture or dislocation. No osseous erosions arepresent. The joint spaces are preserved. No focal soft tissue swelling ispresent. The osseous density is normal. Left wrist: There is no acute fracture or dislocation. No osseous erosions arepresent. The joint spaces are preserved. No focal soft tissue swelling ispresent. The osseous density is normal. Right knee: There is no acute fracture or dislocation. No osseous erosions arepresent. A sclerotic lesion in the distal femoral diaphysis andmetadiaphysis with a narrow zone of transition measures approximately 8.7x 3.8 x 2.1 cm. There is no associated cortical destruction, periosteal reaction, or soft tissue mass. The joint spacesare preserved. No soft tissue swelling or knee joint effusion ispresent. Left knee: There is no acute fracture or dislocation. No osseous erosions arepresent. The joint spaces are preserved. No soft tissue swelling or kneejoint effusion is present. The osseous density is normal. Right ankle: There is no acute fracture or dislocation. No osseous erosions arepresent. The ankle mortise appears intact on these nonweightbearingimages. Plantar and posterior calcaneal enthesophytes are noted. No focalsoft tissue swelling or ankle joint effusion is present. The osseous density is normal. Left ankle: There is no acute fracture or dislocation. No osseous erosions arepresent. The ankle mortise appears intact on these nonweightbearingimages. Posterior and plantar calcaneal enthesophytes are noted. No focalsoft tissue swelling or ankle joint effusion is present. The osseous density is normal. IMPRESSION Impression: 1. Normal radiographs of the right hand. 2. Mild cortical irregularity along the ulnar aspects of the secondthrough fourth middle phalanges, which may represent erosions. An obliqueradiograph of the left hand would be helpful for further evaluation. 3. Normal radiographs of the bilateral wrists. 4. Sclerotic lesion in the distal right femur measuring 8.7 x 3.8 x 2.1 cmwithout associated cortical destruction, periosteal reaction, or softtissue mass. Differential diagnosis includes bone infarct, nonossifyingfibroma, and a giant bone island. Short-term interval follow-up radiographs are recommended to documentstability. Alternatively MRI of the knee can be obtained for furtherevaluation if not recently performed. 5. Normal radiographs of the left knee. 6. Bilateral plantar and posterior calcaneal enthesophytes. This report has been dictated by Miranda Gloria M.D. (Resident). This report was approved by Miranda Gloria M.D. on 07/19/2016 11:[address] KARINA Diallo M.D. have personally reviewed and interpreted thisexamination/study. This report was electronically signed by KARINA ARORA M.D. on07/19/2016 12:10 PM . Leanne Hatfield MD DIAGNOSTIC [facility] ORDERABLES * XR WRIST RIGHT 2VW (07/19/2016 9:54 AM [employer]) Anatomical Region Laterality Modality Wrist / Hand Other Impressions 07/19/2016 12:10 PM [employer] Impression: 1. Normal radiographs of the right hand. 2. Mild cortical irregularity along the ulnar aspects of the second through fourth middle phalanges, which may represent erosions. An oblique radiograph of the left hand would be helpful for further evaluation. 3. Normal radiographs of the bilateral wrists. 4. Sclerotic lesion in the distal right femur measuring 8.7 x 3.8 x 2.1 cm without associated cortical destruction, periosteal reaction, or soft tissue mass. Differential diagnosis includes bone infarct, nonossifying fibroma, and a giant bone island. Short-term interval follow-up radiographs are recommended to document stability. Alternatively MRI of the knee can be obtained for further evaluation if not recently performed. 5. Normal radiographs of the left knee. 6. Bilateral plantar and posterior calcaneal enthesophytes. This report has been dictated by Miranda Gloria M.D. (Resident). This report was approved by Miranda Gloria M.D. on 07/19/2016 11:40 AM . I, Dr. KARINA ARORA M.D. have personally reviewed and interpreted this examination/study. This report was electronically signed by KARINA ARORA M.D. on 07/19/2016 12:10 PM . 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 Right hand, 2 views 2. Left hand, 2 views 3. Right wrist, 2 views 4. Left wrist, 2 views 5. Right knee, 3 views 6. Left knee, 3 views 7. Right ankle, 2 views 8. Left ankle, 2 views Date: 07/19/2016 History: 51-year-old female with arthralgia. Comparison: No prior studies are available for comparison. Findings: Right hand: There is no acute fracture or dislocation. No osseous erosions are present. The joint spaces are preserved. No focal soft tissue swelling is present. The osseous density is normal. Left hand: There is no acute fracture or dislocation. Cortical irregularity along the ulnar aspect of the second, third, and fourth middle phalanges may represent erosions. Minimal degenerative changes are present at the first interphalangeal joint. No focal soft tissue swelling is present. The osseous density is normal. Right wrist: There is no acute fracture or dislocation. No osseous erosions are present. The joint spaces are preserved. No focal soft tissue swelling is present. The osseous density is normal. Left wrist: There is no acute fracture or dislocation. No osseous erosions are present. The joint spaces are preserved. No focal soft tissue swelling is present. The osseous density is normal. Right knee: There is no acute fracture or dislocation. No osseous erosions are present. A sclerotic lesion in the distal femoral diaphysis and metadiaphysis with a narrow zone of transition measures approximately 8.7 x 3.8 x 2.1 cm. There is no associated cortical destruction, periosteal reaction, or soft tissue mass. The joint spaces are preserved. No soft tissue swelling or knee joint effusion is present. Left knee: There is no acute fracture or dislocation. No osseous erosions are present. The joint spaces are preserved. No soft tissue swelling or knee joint effusion is present. The osseous density is normal. Right ankle: There is no acute fracture or dislocation. No osseous erosions are present. The ankle mortise appears intact on these nonweightbearing images. Plantar and posterior calcaneal enthesophytes are noted. No focal soft tissue swelling or ankle joint effusion is present. The osseous density is normal. Left ankle: There is no acute fracture or dislocation. No osseous erosions are present. The ankle mortise appears intact on these nonweightbearing images. Posterior and plantar calcaneal enthesophytes are noted. No focal soft tissue swelling or ankle joint effusion is present. The osseous density is normal. Procedure Note Karina Arora MD - 10/19/2017 Exam: 1. Right hand, 2 views 2. Left hand, 2 views 3. Right wrist, 2 views 4. Left wrist, 2 views 5. Right knee, 3 views 6. Left knee, 3 views 7. Right ankle, 2 views 8. Left ankle, 2 views Date: 07/19/2016 History: 51-year-old female with arthralgia. Comparison: No prior studies are available for comparison. Findings: Right hand: There is no acute fracture or dislocation. No osseous erosions arepresent. The joint spaces are preserved. No focal soft tissue swelling ispresent. The osseous density is normal. Left hand: There is no acute fracture or dislocation. Cortical irregularity along theulnar aspect of the second, third, and fourth middle phalanges mayrepresent erosions. Minimal degenerative changes are present at the firstinterphalangeal joint. No focal soft tissue swelling is present. The osseous density is normal. Right wrist: There is no acute fracture or dislocation. No osseous erosions arepresent. The joint spaces are preserved. No focal soft tissue swelling ispresent. The osseous density is normal. Left wrist: There is no acute fracture or dislocation. No osseous erosions arepresent. The joint spaces are preserved. No focal soft tissue swelling ispresent. The osseous density is normal. Right knee: There is no acute fracture or dislocation. No osseous erosions arepresent. A sclerotic lesion in the distal femoral diaphysis andmetadiaphysis with a narrow zone of transition measures approximately 8.7x 3.8 x 2.1 cm. There is no associated cortical destruction, periosteal reaction, or soft tissue mass. The joint spacesare preserved. No soft tissue swelling or knee joint effusion ispresent. Left knee: There is no acute fracture or dislocation. No osseous erosions arepresent. The joint spaces are preserved. No soft tissue swelling or kneejoint effusion is present. The osseous density is normal. Right ankle: There is no acute fracture or dislocation. No osseous erosions arepresent. The ankle mortise appears intact on these nonweightbearingimages. Plantar and posterior calcaneal enthesophytes are noted. No focalsoft tissue swelling or ankle joint effusion is present. The osseous density is normal. Left ankle: There is no acute fracture or dislocation. No osseous erosions arepresent. The ankle mortise appears intact on these nonweightbearingimages. Posterior and plantar calcaneal enthesophytes are noted. No focalsoft tissue swelling or ankle joint effusion is present. The osseous density is normal. IMPRESSION Impression: 1. Normal radiographs of the right hand. 2. Mild cortical irregularity along the ulnar aspects of the secondthrough fourth middle phalanges, which may represent erosions. An obliqueradiograph of the left hand would be helpful for further evaluation. 3. Normal radiographs of the bilateral wrists. 4. Sclerotic lesion in the distal right femur measuring 8.7 x 3.8 x 2.1 cmwithout associated cortical destruction, periosteal reaction, or softtissue mass. Differential diagnosis includes bone infarct, nonossifyingfibroma, and a giant bone island. Short-term interval follow-up radiographs are recommended to documentstability. Alternatively MRI of the knee can be obtained for furtherevaluation if not recently performed. 5. Normal radiographs of the left knee. 6. Bilateral plantar and posterior calcaneal enthesophytes. This report has been dictated by Miranda Gloria M.D. (Resident). This report was approved by Miranda Gloria M.D. on 07/19/2016 11:[address] KARINA Diallo M.D. have personally reviewed and interpreted thisexamination/study. This report was electronically signed by KARINA ARORA M.D. on07/19/2016 12:10 PM . 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 Normal radiographs of the right hand. 2. Mild cortical irregularity along the ulnar aspects of the second through fourth middle phalanges, which may represent erosions. An oblique radiograph of the left hand would be helpful for further evaluation. 3. Normal radiographs of the bilateral wrists. 4. Sclerotic lesion in the distal right femur measuring 8.7 x 3.8 x 2.1 cm without associated cortical destruction, periosteal reaction, or soft tissue mass. Differential diagnosis includes bone infarct, nonossifying fibroma, and a giant bone island. Short-term interval follow-up radiographs are recommended to document stability. Alternatively MRI of the knee can be obtained for further evaluation if not recently performed. 5. Normal radiographs of the left knee. 6. Bilateral plantar and posterior calcaneal enthesophytes. This report has been dictated by Miranda Gloria M.D. (Resident). This report was approved by Miranda Gloria M.D. on 07/19/2016 11:[address] KARINA Diallo M.D. have personally reviewed and interpreted this examination/study. This report was electronically signed by KARINA ARORA M.D. on 07/19/2016 12:10 PM . 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 Right hand, 2 views 2. Left hand, 2 views 3. Right wrist, 2 views 4. Left wrist, 2 views 5. Right knee, 3 views 6. Left knee, 3 views 7. Right ankle, 2 views 8. Left ankle, 2 views Date: 07/19/2016 History: 51-year-old female with arthralgia. Comparison: No prior studies are available for comparison. Findings: Right hand: There is no acute fracture or dislocation. No osseous erosions are present. The joint spaces are preserved. No focal soft tissue swelling is present. The osseous density is normal. Left hand: There is no acute fracture or dislocation. Cortical irregularity along the ulnar aspect of the second, third, and fourth middle phalanges may represent erosions. Minimal degenerative changes are present at the first interphalangeal joint. No focal soft tissue swelling is present. The osseous density is normal. Right wrist: There is no acute fracture or dislocation. No osseous erosions are present. The joint spaces are preserved. No focal soft tissue swelling is present. The osseous density is normal. Left wrist: There is no acute fracture or dislocation. No osseous erosions are present. The joint spaces are preserved. No focal soft tissue swelling is present. The osseous density is normal. Right knee: There is no acute fracture or dislocation. No osseous erosions are present. A sclerotic lesion in the distal femoral diaphysis and metadiaphysis with a narrow zone of transition measures approximately 8.7 x 3.8 x 2.1 cm. There is no associated cortical destruction, periosteal reaction, or soft tissue mass. The joint spaces are preserved. No soft tissue swelling or knee joint effusion is present. Left knee: There is no acute fracture or dislocation. No osseous erosions are present. The joint spaces are preserved. No soft tissue swelling or knee joint effusion is present. The osseous density is normal. Right ankle: There is no acute fracture or dislocation. No osseous erosions are present. The ankle mortise appears intact on these nonweightbearing images. Plantar and posterior calcaneal enthesophytes are noted. No focal soft tissue swelling or ankle joint effusion is present. The osseous density is normal. Left ankle: There is no acute fracture or dislocation. No osseous erosions are present. The ankle mortise appears intact on these nonweightbearing images. Posterior and plantar calcaneal enthesophytes are noted. No focal soft tissue swelling or ankle joint effusion is present. The osseous density is normal. Procedure Note Karina Arora MD - 10/19/2017 Exam: 1. Right hand, 2 views 2. Left hand, 2 views 3. Right wrist, 2 views 4. Left wrist, 2 views 5. Right knee, 3 views 6. Left knee, 3 views 7. Right ankle, 2 views 8. Left ankle, 2 views Date: 07/19/2016 History: 51-year-old female with arthralgia. Comparison: No prior studies are available for comparison. Findings: Right hand: There is no acute fracture or dislocation. No osseous erosions arepresent. The joint spaces are preserved. No focal soft tissue swelling ispresent. The osseous density is normal. Left hand: There is no acute fracture or dislocation. Cortical irregularity along theulnar aspect of the second, third, and fourth middle phalanges mayrepresent erosions. Minimal degenerative changes are present at the firstinterphalangeal joint. No focal soft tissue swelling is present. The osseous density is normal. Right wrist: There is no acute fracture or dislocation. No osseous erosions arepresent. The joint spaces are preserved. No focal soft tissue swelling ispresent. The osseous density is normal. Left wrist: There is no acute fracture or dislocation. No osseous erosions arepresent. The joint spaces are preserved. No focal soft tissue swelling ispresent. The osseous density is normal. Right knee: There is no acute fracture or dislocation. No osseous erosions arepresent. A sclerotic lesion in the distal femoral diaphysis andmetadiaphysis with a narrow zone of transition measures approximately 8.7x 3.8 x 2.1 cm. There is no associated cortical destruction, periosteal reaction, or soft tissue mass. The joint spacesare preserved. No soft tissue swelling or knee joint effusion ispresent. Left knee: There is no acute fracture or dislocation. No osseous erosions arepresent. The joint spaces are preserved. No soft tissue swelling or kneejoint effusion is present. The osseous density is normal. Right ankle: There is no acute fracture or dislocation. No osseous erosions arepresent. The ankle mortise appears intact on these nonweightbearingimages. Plantar and posterior calcaneal enthesophytes are noted. No focalsoft tissue swelling or ankle joint effusion is present. The osseous density is normal. Left ankle: There is no acute fracture or dislocation. No osseous erosions arepresent. The ankle mortise appears intact on these nonweightbearingimages. Posterior and plantar calcaneal enthesophytes are noted. No focalsoft tissue swelling or ankle joint effusion is present. The osseous density is normal. IMPRESSION Impression: 1. Normal radiographs of the right hand. 2. Mild cortical irregularity along the ulnar aspects of the secondthrough fourth middle phalanges, which may represent erosions. An obliqueradiograph of the left hand would be helpful for further evaluation. 3. Normal radiographs of the bilateral wrists. 4. Sclerotic lesion in the distal right femur measuring 8.7 x 3.8 x 2.1 cmwithout associated cortical destruction, periosteal reaction, or softtissue mass. Differential diagnosis includes bone infarct, nonossifyingfibroma, and a giant bone island. Short-term interval follow-up radiographs are recommended to documentstability. Alternatively MRI of the knee can be obtained for furtherevaluation if not recently performed. 5. Normal radiographs of the left knee. 6. Bilateral plantar and posterior calcaneal enthesophytes. This report has been dictated by Miranda Gloria M.D. (Resident). This report was approved by Miranda Gloria M.D. on 07/19/2016 11:40 AM . IDr. KARINA M.D. have personally reviewed and interpreted thisexamination/study. This report was electronically signed by KARINA ARORA M.D. on07/19/2016 12:10 PM . Leanne Hatfield MD DIAGNOSTIC JACQUELINE GING ORDERABLES * BETA-2 GLYCOPROTEIN 1 ANTIBODY IGG (07/19/2016 9:40 AM P[employer] TRIMMER) Beta-2 Glycoprotein I Antibody IgG <20.0 <20.0 [facility] Blood specimen (specimen) BLOOD SPECIMEN / Unknown 07/19/2016 9:40 AM P[employer] TRIMMER 07/19/2016 9:44 AM [employer] TRIMMER Leanne Hatfield MD LAB - SEROLOGY ORDERABLES [address] [phone] * BETA-2 GLYCOPROTEIN 1 ANTIBODY IGM (07/19/2016 9:40 AM PIPE B[employer] PAINT TRIMMER) Beta-2 Glycoprotein Antibody IgM <20.0 <20.0 [facility] Blood specimen (specimen) BLOOD SPECIMEN / Unknown 07/19/2016 9:40 AM P[employer] TRIMMER 07/19/2016 9:44 AM [employer] TR[employer]MER Leanne Hatfield MD LAB - SEROLOGY ORDERABLES [address] [phone] * (ABNORMAL) URINALYSIS W/MICROSCOPIC NO CULTURE (07/19/2016 9:40 AM PIPE [employer] PAINT TRIMMER) Color UA Yellow Straw, Yellow, Colorless, Light Yellow [facility] Clarity UA Clear Clear [facility] Specific [place] UA 1.020 1.001 - 1.030 [facility] pH UA 7.0 5.0 - 8.0 [facility] Protein UA 50(A) <=20 mg/dL [facility] Glucose UA Negative Negative mg/dL [facility] Ketone UA Negative Negative mg/dL [facility] Bilirubin UA Negative Negative mg/dL [facility] Blood UA Negative Negative [facility] Nitrite UA Negative Negative [facility] Leukocyte Esterase Negative Negative [facility] Urobilinogen UA <2.0 <2.0 mg/dL [facility] RBC UA 2 0 - 8 /HPF [facility] WBC UA 1 0 - 2 /HPF [facility] Bacteria UA Rare Rare, Occasional, None /HPF [facility] Squamous Epithelial Cells UA 4(H) 0 - 1 /HPF [facility] Mucus UA Many(A) None /LPF [facility] Hyaline Casts UA 6(H) 0 - 2 /LPF [facility] Urine specimen (specimen) URINE SPECIMEN OBTAINED BY CLEAN CATCH PROCEDURE / Unknown 07/19/2016 9:40 AM P[employer]INT TRIMMER 07/19/2016 9:47 AM P[employer] PAINT TRIMMER Leanne Hatfield MD LAB - URINALYS IS ORDERABLES Performing Organization Address [facility] Co de Phone Number [address] [phone] * URIC ACID BLOOD (07/19/2016 9:40 AM PIPE B[employer] PAINT TRIMMER) Uric Acid 5.9 2.6 - 7.2 mg/dL [facility] Blood specimen (specimen) BLOOD SPECIMEN / Unknown 07/19/2016 9:40 AM P[employer] PAINT TRIMMER 07/19/2016 9:46 AM P[employer] PAINT TRIMMER Leanne Hatfield MD LAB - CHEMISTR Y ORDERABLES Performing Organization Address [facility] Co de Phone Number [address] [phone] * CARDIOLIPIN ANTIBODY IGA (07/19/2016 9:40 AM PIPE B[employer] PAINT TRIMMER) Anticardiolipin Antibody IgA <15.0 <15.0 [facility] Blood specimen (specimen) BLOOD SPECIMEN / Unknown 07/19/2016 9:40 AM P[employer] PA[employer] TRIMMER 07/19/2016 9:44 AM P[employer] PAINT TRIMMER Leanne Hatfield MD LAB - SEROLOGY ORDERABLES Performing Organization Address City/[facility] Co de Phone Number [address] [phone] * CARDIOLIPIN ANTIBODY IGM (07/19/2016 9:40 AM PIPE B[employer] PAINT TRIMMER) Anticardiolipin Antibody IgM <15.0 <15.0 MPL [facility] Blood specimen (specimen) BLOOD SPECIMEN / Unknown 07/19/2016 9:40 AM P[employer] PA[employer] TRIMMER 07/19/2016 9:44 AM P[employer] PAINT TRIMMER Leanne Hatfield MD LAB - SEROLOGY ORDERABLES Performing Organization Address [facility] Co de Phone Number [address] [phone] * CARDIOLIPIN ANTIBODY IGG (07/19/2016 9:40 AM PIPE B[employer] PAINT TRIMMER) Anticardiolipin Antibody IgG <15.0 <15.0 GPL [facility] Blood specimen (specimen) BLOOD SPECIMEN / Unknown 07/19/2016 9:40 AM P[employer] PA[employer] TRIMMER 07/19/2016 9:44 AM P[employer] PAINT TRIMMER Leanne Hatfield MD LAB - SEROLOGY ORDERABLES Performing Organization Address [facility] Co de Phone [address] [phone] * PEREZ (SM) ANTIBODY KAI (07/19/2016 9:40 AM PIPE B[employer]L PAINT TRIMMER) Perez Antibody 6.7 0.0 - 19.9 Units [facility] Comment: KAI Antibody Numeric Result Interpretation: <20.0 Units: Negative 20.0 - 39.0 Units: Weakly Positive >39.0 Units: Positive Blood specimen (specimen) BLOOD SPECIMEN / Unknown 07/19/2016 9:40 AM P[employer] TRIMMER 07/19/2016 9:47 AM P[employer] PA[employer] TRIMMER Leanne Hatfield MD LAB - CHEMISTR Y ORDERABLES Performing Organization Address [facility] Co de Phone Number [address] [phone] * BETA-2 GLYCOPROTEIN 1 ANTIBODY IGA (07/19/2016 9:40 AM PIPE B[employer] PAINT TRIMMER) Beta-2 Glycoprotein I Antibody IgA <20.0 <20.0 SHANIQUA [facility] Blood specimen (specimen) BLOOD SPECIMEN / Unknown 07/19/2016 9:40 AM P[employer] PAINT TRIMMER 07/19/2016 9:44 AM P[employer] B[employer]L PAINT TRIMMER Leanne Hatfield MD LAB - SEROLOGY ORDERABLES Performing Organization Address City/[facility]/ZIP Co de Phone Number [address] [phone] * SCLERODERMA 70 (SCL) ANTIBODY (07/19/2016 9:40 AM PIPE BOWL PAINT TRIMMER) Pathologist [facility] SCL-70 Antibody 1.8 0.0 - 19.9 Units [facility] Comment: KAI Antibody Numeric Result Interpretation: <20.0 Units: Negative 20.0 - 39.0 Units: Weakly Positive >39.0 Units: Positive Blood specimen (specimen) BLOOD SPECIMEN / Unknown 07/19/2016 9:40 AM PIPE [employer]L PAINT TRIMMER 07/19/2016 9:47 AM P[employer]L PAINT TRIMMER Leanne Hatfield MD LAB - CHEMISTR Y ORDERABLES [address] [phone] * (ABNORMAL) ERYTHROCYTE SEDIMENTATION RATE (07/19/2016 9:40 AM PIPE B[employer]L PAINT TRIMMER) [facility] Erythrocyte Sedimentation Rate Westergren 36(H) 0 - 20 MM/HR [facility] Blood specimen (specimen) BLOOD SPECIMEN / Unknown 07/19/2016 9:40 AM PIPE [employer] PAINT TRIMMER 07/19/2016 9:46 AM P[employer]L PAINT TRIMMER Leanne Hatfield MD LAB - HEMATOLO GY ORDERABLES Performing Organization Address City/[facility]/ZIP Co de Phone Number [address] [phone] * CBC W/O DIFFERENTIAL (07/19/2016 9:40 AM PIPE B[employer]L PAINT TRIMMER) Pathologist [facility] WBC 7.0 3.5 - 10.5 10 3/uL [facility] RBC 4.83 3.90 - 5.00 10 6/uL [facility] Hemoglobin 14.2 12.0 - 15.5 g/dL [facility] Hematocrit 42.3 35.0 - 45.0 % [facility] MCV 87.6 81.0 - 97.0 fL [facility] MCH 29.4 28.0 - 34.0 pg [facility] MCHC 33.6 32.0 - 36.0 g/dL [facility] Platelet Count 261 150 - 400 10 3/uL [facility] RDW-SD 45.5 36.0 - 50.0 fL [facility] RDW-CV 14.2 11.2 - 14.8 % [facility] MPV 10.1 9.3 - 12.8 fL [facility] nRBC Absolute 0.00 0 10 3/uL [facility] nRBC Auto 0.0 0 /100 WBC [facility] Blood specimen (specimen) BLOOD SPECIMEN / Unknown 07/19/2016 9:40 AM P[employer] PA[employer] TRIMMER 07/19/2016 9:46 AM P[employer] B[employer]L PAINT TRIMMER Laenne Hatfield MD LAB - HEMATOLO GY ORDERABLES [address] [phone] * COMPLEMENT C4 (07/19/2016 9:40 AM PIPE B[employer] PAINT TRIMMER) Complement C4 42 15 - 57 mg/dL [facility] Blood specimen (specimen) BLOOD SPECIMEN / Unknown 07/19/2016 9:40 AM P[employer] PAINT TRIMMER 07/19/2016 9:46 AM P[employer] PAINT TRIMMER Leanne Hatfield MD LAB - SEROLOGY ORDERABLES Performing Organization Address [facility] Co de Phone Number [address] [phone] * CK BLOOD (07/19/2016 9:40 AM PIPE B[employer] PAINT TRIMMER) CK Total 57 30 - 200 Units/L [facility] Blood specimen (specimen) BLOOD SPECIMEN / Unknown 07/19/2016 9:40 AM P[employer] PAINT TRIMMER 07/19/2016 9:46 AM P[employer]L PAINT TRIMMER Leanne Hatfield MD LAB - CHEMISTR Y ORDERABLES Performing Organization Address City/[facility]/ZIP Co de Phone Number [address] [phone] * T4 FREE (07/19/2016 9:40 AM PIPE B[employer] PAINT TRIMMER) T4 Free 0.9 0.7 - 1.5 ng/dL [facility] Blood specimen (specimen) BLOOD SPECIMEN / Unknown 07/19/2016 9:40 AM P[employer] PAINT TRIMMER 07/19/2016 9:46 AM P[employer] PAINT TRIMMER Leanne Hatfield MD LAB - CHEMISTR Y ORDERABLES Performing Organization Address City/[facility] Co de Phone Number [address] [phone] * COMPLEMENT C3 (07/19/2016 9:40 AM PIPE B[employer]L PAINT TRIMMER) Complement C3 186 82 - 193 mg/dL [facility] Blood specimen (specimen) BLOOD SPECIMEN / Unknown 07/19/2016 9:40 AM PIPE B[employer] PAINT TRIMMER 07/19/2016 9:46 AM P[employer] B[employer]L PAINT TRIMMER Leanne Hatfield MD LAB - CHEMISTR Y ORDERABLES Performing Organization Address [facility] de Phone Number [address] [phone] * GROSS + MICRO EXAM (06/07/2001 11:00 AM PIPE BOWL PAINT TRIMMER) Result CASE NUMBER [id number] Comment: ORDERING PHYSICIAN GARRETT HARRIS SPECIMEN TYPE Uterus, Cervix-Left Ovary and Tube Date of Surgery 06/07/2001 1846 SPECIMEN SOURCE Uterus, cervix, left ovary and tube *Pre Op Dx Chronic pelvic pain GROSS DESCRIPTION Received in fixative and labeled Hung, Melinda, uterus, cervix, left ovary and tube , there is a 113.0 gram uterus and cervix with associated left fallopian tube and ovary. The left fallopian tube appears to have been previously sectioned and is represented now by a 3.0 cm. long distal segment with a glistening, purple serosa and delicate, purple fimbriae. Attached to the serosa of the proximal end of this segment of fallopian tube are two metal clips. The 14.0 gram left ovary (3.8 x 3.3 x 2.4 cm.) has a smooth, glistening, blue to lopez to pink external cortical surface and on serial transverse section shows a soft to rubbery, pink parenchyma with two large hemorrhagic cysts, varying in maximal dimension from 1.2-2.0 cm. The 5.0 cm. long uterus measures 4.8 x 4.3 cm. in cross-sectional area at the midpoint and is covered with a smooth, glistening, pink serosa. At the distal end of the 3.5 cm. long uterine cervix, there is a punctate external cervical os, surrounded by a rim of smooth, glistening, white to pink exocervical mucosa, varying in width from 1.0-2.0 cm. The endocervical canal is patent and is lined with a glistening, lopez mucosa. There is marked stenosis of the lumen at the uterocervical junction. The 4.0 cm. long intrauterine cavity is lined with a glistening, lopez, focally slightly hyperemic endometrium, 0.4 cm. in maximal thickness. On the anterior wall of the intrauterine cavity and 0.6 cm. below the fundus, there is an ovoid area of black, apparently hemorrhagic, intraendometrial hemorrhage, measuring 0.6 x 0.5 x 0.3 cm. Serial sections of the uterine wall at 0.3 cm. intervals reveal a rubbery, pink myometrium, 2.1 cm. in maximal thickness, within which there are occasional areas of black discoloration, predominantly at the site about the bloody blister noted in the intrauterine cavity, grossly suggestive of adenomyosis. Fibroids are not identified. Cassettes A1- A5 = left ovary and fallopian tube. Cassettes A6-A10 = endometrium and myometrium. Cassettes A11 and A12 = longitudinal sections, distal uterine cervix. Grossed by BECKY PATHAK M.D. *MICROSCOPIC EXAM Five slides with sections of the uterine wall generously sampled in cassettes A6 to A10 show abundant benign endometrium, characterized by a densely cellular, mildly to moderately edematous stroma containing predominantly coiled tubular glands lined with columnar epithelium, within which mitotic figures (if present at all) are extremely rare. [place] proteinaceous sections are widespread within the glandular lumina, indicative of active ongoing secretory activity. Within the deep smooth muscle of the underlying myometrium, there are numerous foci of focally cystically dilated endometrial glands and stroma, confirmative of the gross impression of adenomyosis. The longitudinal sections of distal uterine cervix (cassettes A11 and A12) show several prominent submucosal Nabothian cysts and focal squamous metaplasia of the endocervical surface mucosal epithelium with mild chronic cervicitis. Five slides from cassettes A1 to A5 show sections of a large benign left ovary with a large hemorrhagic corpus luteum cyst and multiple follicle cysts, the latter with occasional acute intramural hemorrhage. The included cross sections of left fallopian tube are well preserved and histologically unremarkable. Read by BECKY PATHAK M.D. DIAGNOSIS 113 GM UTERUS AND CERVIX WITH LEFT OVARY AND FALLOPIAN TUBE (1) BENIGN SECRETORY ENDOMETRIUM. (2) ADENOMYOSIS, EXTENSIVE. (3) UTERINE CERVIX WITH FOCAL SQUAMOUS METAPLASIA AND MILD CHRONIC CERVICITIS. (4) BENIGN, PREVIOUSLY SECTIONED LEFT FALLOPIAN TUBE WITHOUT PATHOLOGIC CHANGES. (5) BENIGN 14 GM LEFT OVARY WITH LARGE HEMORRHAGIC CORPUS LUTEUM CYST AND MULTIPLE, OCCASIONALLY HEMORRHAGIC FOLLICLE CYSTS. CODE 4 CPT LEVEL V 88941 RELEASED BY BECKY Irving MISCELLANEOUS SAMPLES / Unknown 06/07/2001 11:00 AM PIPE B[employer]L PAINT TRIMMER 06/07/2001 11:49 AM PIPE BOWL PAINT TRIMMER Historical Provider LAB - PATHOLOGY/C YTOLOGY ORDERABLES Care Teams Field Captain Relationship Specialty Start Date End Date Dayna Maki MD PCP - General 12/24/20 Dayna Maki MD 12/22/20 Eulalia Lema DO Resident - PCP Internal Medicine 02/15/18
--- OUTSIDE RECORDS SUMMARY | 2024-09-02 10:13 | XMS_ITS | Data Portability ---
[facility] [address] [place] [address] Care Team Providers Care Rental Counter Clerk Name Role Phone KENNEDY GARCIAA Pain Management KACY RODRÍGUEZ Hydrogen Treater PABLO GAFFNEY Neurosurgeon IONA MILIAN Sewage Treatment Plant Operator JOSELO ALDANA Primary Care Provider Assessment No assessment recorded. Plan of Treatment Reminders Order Date Submit Date Provider Last Modified By Organization Details Last Modified Time Details Appointments None recorded. Lab CBC 2017 018 [facility], [address], [address], [place], [address], 8 03:07:58 CMP, serum or plasma 2017 018 [facility], [address], [address], [place], [address], 8 03:07:59 TSH, ultra-sens itive, serum 2017 018 [facility], [address], [address], [place], [address], 8 03:08:00 lipid panel, serum 2017 018 [facility], [address], [address], [place], [address], 8 03:08:02 HbA1c (hemoglobi n A1c), blood 2017 018 [facility], [address], [address], [place], [address], 8 03:08:04 Referral None recorded. Procedures None recorded. Surgeries None recorded. Imaging None recorded. Medication Orders cetirizine 10 mg tablet 2016 017 [id number], [address], [place], [id number], 7 11:20:10 Ventolin HFA 90 mcg/actuat ion aerosol inhaler 2020 021 [facility], [address] [place] [address] , [address], [place], [place], [id number], 1 17:50:31 hydrochlor othiazide 25 mg tablet 2020 021 [facility], [address] [place] [address] , [address], [place], [place], [id number], 1 17:50:31 Patient TargetsNo targets recorded. Patient Instructions Encounter Date Encounter Id Patient Instructions Last Modified By Organization Details Last Modified Time 12/12/2017 [id number] advised to quit smoking nsuthan Not available 12/12/2017 15:04:56 pt to bring home d meds with next visit f/u in 1month nsuthan Not available 12/12/2017 15:04:40 pt is poor historian nsuthan Not available 12/12/2017 15:04:53 Reason for Referral None Reported. Results Created Date Observation Date Name Description Value Unit Range Abnormal Flag Note LastModifiedBy Organization Detail LastModifiedTime 05/08/20 17 05/08/2017 CT, head, w/o contr ast No observ ation record ed. [facility] [address] [place], [address], 05/08/2017 14:09:38 02/07/20 18 02/06/2018 MAMMO , scree lola, bilat eral No observ ation record ed. [email or web address] [facility] (Imaging) [address] [place], [address], 02/08/2018 18:52:03 02/07/20 18 02/06/2018 XR, foot No observ ation record ed. [email or web address] (Imaging) [address] [place], [address], 02/13/2018 08:49:09 02/07/20 18 02/06/2018 XR, knee No observ ation record ed. [email or web address] [address] (Imaging) [address] [place], [address], 02/13/2018 08:48:42 02/07/20 18 02/06/2018 XR, ankle No observ ation record ed. [email or web address] (Imaging) [address] [place], [address], 02/13/2018 08:48:24 02/07/20 18 02/06/2018 XR, knee No observ ation record ed. [email or web address] [facility] (Imaging) [address] [place], [address], 02/14/2018 13:59:05 07/30/19 19 07/30/2018 XR, shoul jv, 2 or more view No observ ation record ed. [email or web address] [facility] (Imaging) [address] [place], [address], 09/03/2018 11:11:40 08/30/19 19 08/29/2018 CT, chest , w/o contr ast No observ ation [facility]. [email or web address] [address] [place], [address], 09/10/2018 10:13:52 Result Notes None recorded. Problems Name Problem SNOMED Code Status Onset Date Resolution Date Notes Provider Name and Address Organization Details Recorded Time Edema 130353537 Completed 12/12/2017 Joselo Aldana MD Attn: Accounting ,[address] [place], [place], [address] [place] [address] , [facility] 8 14:32:14 Acute exacerbat ion of chronic obstructi ve pulmonary disease [id number] Completed 12/12/2017 Joselo Aldana MD Attn: Accounting ,[address] [facility], [place], [place], [address] [place] [address] , [facility] 8 14:32:19 Dizziness 937160270 Completed 12/12/2017 Arik Aldana MD Attn: Accounting ,[address] [place], [place], [address] [place] [address] , [facility] 8 14:31:38 Hyperlipi demia 18962664 Active Tennille Quiroga PA-C Attn: Accounting ,[address] [place], [place], [address] [place] [address] , [facility] 6 14:01:24 Tobacco dependenc e syndrome 19451001 Active Maribel Nieto LPN null, [place] - [facility] 4 09:16:25 Obesity 343857549 Active Tennille Quiroga PA-C Attn: Accounting ,[address] [place], [address] [place] [address] , [facility] 6 14:01:24 Emphysema Completed 12/12/2017 Joselo Aldana MD Attn: Accounting ,[address] [place], [address] [place] [address] , [place] - [facility] 8 14:37:08 Irritable bowel syndrome 16118022 Completed 12/12/2017 Joselo Aldana MD Attn: Accounting ,[address] [place], [address] [place] [address] , [facility] 8 14:49:24 Neuropath y 321777863 Active Dr.Nas eladia Aldana MD Attn: Accounting ,[address] [facility], [place], [address] , [place] - [facility] 8 14:41:48 Vitamin D deficienc y 64346089 Active Tennille Quiroga PA-C Attn: Accounting ,[address] [facility], [place], [address] , [place] [facility] 5 14:19:24 Schizoaff ective disorder 05314663 Active psych/ Chestn ut Joselo Aldana MD Attn: Accounting ,[address] [facility], [place], [address] , [place] [facility] 8 14:43:45 Chronic obstructi ve pulmonary disease 44580361 Active Tennille Quiroga PA-C Attn: Accounting ,[address] [facility], [place], [address] , [place] - [facility] 6 14:01:24 Chronic renal impairmen t Active sees nephro /DR.Da anupam Aldana MD Attn: Accounting ,[address] [facility], [place], [address] [place] [address] , [place] [facility] 8 14:47:43 Personali ty disorder 54756307 Completed 12/12/2017 Joselo Aldana MD Attn: Accounting ,[address] [facility], [place], [address] [place] [address] , [place] [facility] 8 14:50:17 Asthma 242511539 Completed 12/12/2017 Joselo Aldana MD Attn: Accounting ,[address] [facility], [place], [address] [place] [address] , [place] [facility] 8 14:36:59 Chronic back pain 039719836 Completed 12/12/2017 Joselo Aldana MD Attn: Accounting ,[address] [facility], [place], [address] , [place] - [facility] 8 14:49:17 Fatigue 56080419 Active Tennille Quiroga PA-C Attn: Accounting ,[address] [facility], [place], [address] , [facility] 5 16:53:23 Slurred speech 495162641 Completed 12/12/2017 Joselo Aldana MD Attn: Accounting ,[address] [place], [address] , [facility] 8 14:32:05 Migraine without aura 92839382 Completed 12/12/2017 Joselo Aldana MD Attn: Accounting ,[address] [place], [address] [place] [address] , [facility] 8 14:31:09 Cocaine dependenc e in remission 114248527 Completed 12/12/2017 Joselo Aldana MD Attn: Accounting ,[address] [place], [address] [place] [address] , [facility] 8 14:50:25 Hallucino gen dependenc e in remission 732356464 Active KRISTOPEHR Rincon Attn: Accounting ,[address] [place], [address] [place] [address] , [facility] 4 11:41:23 Overflow incontine nce of urine 747981148 Completed 12/12/2017 Joselo Aldana MD Attn: Accounting ,[address] [place], [address] [place] [address] , [facility] 8 14:31:44 Incontine nce of feces 20861581 Completed 12/12/2017 Joselo Aldana MD Attn: Accounting ,[address] [place], [address] , [facility] 8 14:50:38 Disorder of thyroid gland 19839224 Completed 12/12/2017 Joselo Aldana MD Attn: Accounting ,[address] [place], [address] [place] [address] , [facility] 8 14:49:06 Malodorou s urine 756719437 Completed 12/12/2017 Joselo Aldana MD Attn: Accounting ,[address] [place], [address] , [place] [facility] 8 14:32:09 Spinal stenosis 85831672 Active Dr.Nas augie Aldana MD Attn: Accounting ,[address] [place], [address] , [place] [facility] 8 14:42:35 Knee pain Completed 12/12/2017 Joselo Aldana MD Attn: Accounting ,[address] [place], [address] , [place] [facility] 8 14:32:02 Hip pain 82387540 Completed 12/12/2017 Joselo Aldana MD Attn: Accounting ,[address] [place], [address] , [place] [facility] 8 14:31:18 Chronic kidney disease stage 3 805989640 Completed 12/12/2017 Joselo Aldana MD Attn: Accounting ,[address] [place], [address] , [place] [facility] 8 14:50:12 Hyperkale romero 70019028 Completed 12/12/2017 Joselo Aldana MD Attn: Accounting ,[address] [place], [address] , [place] [facility] 8 14:36:28 Allergic rhinitis 64649698 Completed 12/12/2017 Joselo Aldana MD Attn: Accounting ,[address] [place], [address] , [place] [facility] 8 14:37:12 Increased blood pressure 73585568 Completed 12/12/2017 Joselo Aldana MD Attn: Accounting ,[address] [place], [address] , [place] [facility] 8 14:30:35 Pharyngit is 281553667 Completed 201612/12/2017 Joselo Aldana MD Attn: Accounting ,[address] [place], [address] , [place] [facility] 8 14:31:34 Upper respirato ry infection 03031840 Completed 201612/12/2017 Joselo Aldana MD Attn: Accounting ,[address] [place], [address] , [place] [facility] 8 14:31:15 Systemic lupus erythemat osus 85574675 Active 2016 Tennille Quiroga PA-C Attn: Accounting ,[address] [place], [address] , [place] [facility] 7 11:26:23 Chronic neck pain 53785970271 07 Completed 201612/12/2017 Joselo Aldana MD Attn: Accounting ,[address] [place], [address] , [place] [facility] 8 14:49:21 HIV screening Completed 201612/12/2017 Joselo Aldana MD Attn: Accounting ,[address] [place], [address] , [place] [facility] 8 14:30:23 Acute bronchiti s 41293770 Completed 201612/12/2017 Joselo Aldana MD Attn: Accounting ,[address] [place], [address] , [place] [facility] 8 14:30:12 Adverse reaction to drug 00322213 Completed 201612/12/2017 Joselo Aldana MD Attn: Accounting ,[address] [place], [address] , [place] [facility] 8 14:31:03 Multiple bruising 845427739 Completed 201612/12/2017 Joselo Aldana MD Attn: Accounting ,[address] [place], [address] , [place] [facility] 8 14:31:50 Allergic reaction to drug 128700361 Completed 201612/12/2017 Joselo Aldana MD Attn: Accounting ,[address] [place], [address] , [facility] 8 14:31:29 Easy bruising 222966054 Completed 201612/12/2017 Joselo Aldana MD Attn: Accounting ,[address] [place], [address] , [facility] 8 14:31:25 Dehydrati on 45956105 Completed 201612/12/2017 Joselo Aldana MD Attn: Accounting ,[address] [place], [address] , [facility] 8 14:31:57 Cholelith iasis without obstructi on 89431842 Active 2016 Tennille Quiroga PA-C Attn: Accounting ,[address] [place], [address] , [facility] 7 12:01:47 Dyspnea 416472939 Completed 12/12/2017 Joselo Aldana MD Attn: Accounting ,[address] [place], [address] , [facility] 8 14:30:39 Abnormal weight gain 016281130 Completed 12/12/2017 Joselo Aldana MD Attn: Accounting ,[address] [place], [address] , [facility] 8 14:49:09 Chest pain 42090074 Completed 12/12/2017 Joselo Aldana MD Attn: Accounting ,[address] [place], [address] , [facility] 8 14:30:46 Problem Notes None recorded. Procedures Surgical History Date Name Laterality Status Provider Name and Address Organization Details Recorded Time 07/23/19 01 Appendectomy completed Maribel Nieto LPN [facility] 08/13/2014 09:43:28 07/23/18 99 Other completed Maribel Nieto LPN [facility] 08/13/2014 09:43:28 07/23/18 82 Tubal Ligation completed Maribel Nieto LPN PA - [facility] 08/13/2014 09:43:28 Total hysterectomy completed Ama Arias PA - [facility] 12/12/2017 14:16:16 Imaging Results Imaging Date Name Status LastModified by Organiz ation Details LastModified Time 05/08/2017 CT, head, w/o contrast completed [facility] [address] [place], [address], 05/08/2017 14:09:38 02/06/2018 MAMMO, screening, bilateral completed [email or web address] [facility] (Imaging) [address] [place], [address], 02/08/2018 18:52:03 02/06/2018 XR, foot completed [email or web address] [facility] (Imaging) [address] [place], [address], 02/13/2018 08:49:09 02/06/2018 XR, knee completed [email or web address] [facility] (Imaging) [address] [place], [address], 02/13/2018 08:48:42 02/06/2018 XR, ankle completed [email or web address] [facility] (Imaging) [address] [place], [address], 02/13/2018 08:48:24 02/06/2018 XR, knee completed [email or web address] [facility] (Imaging) [address] [place], [address], 02/14/2018 13:59:05 07/30/2018 XR, shoulder, 2 or more view completed [email or web address] [facility] (Imaging) [address] [place], [address], 09/03/2018 11:11:40 08/29/2018 CT, chest, w[facility] contrast [email or web address] [address] [place], [address], 09/10/2018 10:13:52 Procedure Notes None recorded. Medical Equipment None Reported. Allergies Allergen ID Allergen Name Allergen Category Reaction Reaction Severity Criticality Documentation Date Start Date Code Code System Note Provider Name and Address Organization Details Recorded Time 8833 aspirin medicatio n respirato ry distress severe Not available 07/06/2014 1191 RxNorm Not Available Not Available Not Available 8834 shellfish derived food,medi cation Not available Not available Not available 07/06/2014 44124 UNK Not Available Not Available Not Available 28812 meloxicam medicatio n anaphylax is severe Not available 12/26/2016 84034 RxNorm Not Available Not Available Not Available 34110 Invega medicatio n anaphylax is severe Not available 12/26/2016 72983 8 RxNorm Not Available Not Available Not Available Medications Name Sig Start Date Stop Date Status Note LastModified by Organization Details LastModified Time Prescript ion - Prior Authoriza tion Request 10/17 completed Not Available Not Available Not Available cyclobenz aprine 10 mg tablet TK 1 T PO BID active Not Available Not Available No t Available atorvasta tin 40 mg tablet active Not Available Not Available Not Available methocarb earlene 500 mg tablet active Not Available Not Available No t Available Qvar 80 mcg/actua tion Metered Aerosol oral inhaler 10/17 completed Not Available Not Available Not Available bupropion HCl SR 150 mg tablet,12 hr sustained -release 10/17 completed Not Available Not Available Not Available prednison e 10 mg tablet 10/17 completed Not Available Not Available Not Available gabapenti n 600 mg tablet 11/29 completed Not Available Not Available Not Available doxycycli ne hyclate 100 mg capsule Take 1 capsule twice a day by oral route for 7 days. 2014 active Not Available Not Available Not Avai lable cefuroxim e axetil 250 mg tablet 07/06 completed Not Available Not Available Not Available benztropi ne 0.5 mg tablet 12/12 completed Not Available Not Available Not Available naproxen 375 mg tablet 10/17 completed Not Available Not Available Not Available nicotine 14 mg/24 hr daily transderm al patch active Not Available Not Available Not Available ipratropi um 0.5 mg-albute rol 3 mg (2.5 mg base)/3 mL nebulizat ion soln active Not Available Not Available Not Available haloperid ol 5 mg tablet Take 1 tablet every day by oral route at bedtime for 30 days. 07/06 completed Not Available Not Available Not Available tizanidin e 2 mg tablet Take 1 tablet 3 times a day by oral route as needed. 11/21 completed Not Available Not Available Not Available clindamyc in HCl 300 mg capsule active Not Available Not Available Not Available albuterol sulfate 2.5 mg/3 mL (0.083 %) solution for nebulizat ion Inhale 3 mL 3 times a day by nebuliza tion route as needed. 2014 active Not Available Not Available Not Avai lable citalopra m 40 mg tablet 10/17 completed Not Available Not Available Not Available loperamid e 2 mg capsule active Not Available Not Available Not Available cetirizin e 10 mg tablet TAKE 1 TABLET(S ) EVERY DAY BY ORAL ROUTE. active Not Available Not Available No t Available azithromy damien 250 mg tablet TAKE 2 TABLETS (500 MG) BY ORAL ROUTE ONCE DAILY FOR 1 DAY THEN 1 TABLET (250 MG) BY ORAL ROUTE ONCE DAILY FOR 4 DAYS 12/26 completed Not Available Not Available Not Available alprazola m 1 mg tablet active Not Available Not Available Not Available tizanidin e 4 mg tablet TAKE 1 TABLET 2 TIMES DAILY NEEDED 11/29 completed Not Available Not Available Not Available levetirac etam 500 mg tablet active Not Available Not Available No t Available trifluope razine 2 mg tablet 12/12 completed Not Available Not Available Not Available hydrocodo ne 5 mg-acetam inophen 325 mg tablet TAKE 1 TABLET BY MOUTH EVERY 6 HOURS NEEDED FOR PAIN CONTROL active Not Available Not Available No t Available senna 8.6 mg tablet active Not Available Not Available No t Available thiothixe ne 5 mg capsule active Not Available Not Available Not Available lisinopri l 20 mg tablet active Not Available Not Available Not Available prednison e 20 mg tablet Take 1 tablet twice a day by oral route with meals for 7 days. 11/29 completed Not Available Not Available Not Available gabapenti n 400 mg capsule neuro 11/29 completed Not Available Not Available Not Available hydroxyzi ne pamoate 50 mg capsule active Not Available Not Available Not Available bacitraci n 500 unit/gram topical ointment 11/29 completed Not Available Not Available Not Available olanzapin e 10 mg tablet active Not Available Not Available Not Available potassium chloride ER 10 mEq tablet,ex tended release active Not Available Not Available Not Available metronida zole 500 mg tablet active Not Available Not Available No t Available clopidogr el 75 mg tablet active Not Available Not Available Not Available ciproflox acin 500 mg tablet 11/29 completed Not Available Not Available Not Available sulfameth oxazole 800 mg-trimet hoprim 160 mg tablet 10/17 completed Not Available Not Available Not Available hydrocodo ne 10 mg-acetam inophen 325 mg tablet Take 1 tablet twice a day by oral route as needed for 15 days. active Not Available Not Available No t Available omeprazol e 40 mg capsule,d elayed release TK 1 C PO QD 30 MIN B RANDA active Not Available Not Available No t Available olanzapin e 7.5 mg tablet active Not Available Not Available Not Available tramadol 50 mg tablet Take 1 tablet every day by oral route as needed for 10 days. 07/06 completed Not Available Not Available Not Available quetiapin e 100 mg tablet active Not Available Not Available Not Available acetamino phen 500 mg tablet active Not Available Not Available No t Available triamcino lone acetonide 0.1 % topical cream active Not Available Not Available Not Available thioridaz ine 100 mg tablet Take 1 tablet twice a day by oral route. active Not Available Not Available No t Available pentoxify lline ER 400 mg tablet,ex tended release active Not Available Not Available Not Available temazepam 7.5 mg capsule 11/29 completed Not Available Not Available Not Available thioridaz ine 50 mg tablet active Not Available Not Available Not Available cyprohept adine 4 mg tablet active Not Available Not Available No t Available meloxicam 7.5 mg tablet 12/26 completed Not Available Not Available Not Available thiothixe ne 10 mg capsule active Not Available Not Available Not Available Tessalon Perles 100 mg capsule Take 1 capsule 3 times a day by oral route for 5 days. 12/26 completed Not Available Not Available Not Available alprazola m 0.5 mg tablet Take 1 tablet 4 times a day by oral route for 30 days. 11/29 completed psych Not Available Not Available Not Available calcium 600 mg (as calcium carbonate 1,500 mg) tablet 07/06 completed Not Available Not Available Not Available citalopra m 20 mg tablet active Not Available Not Available Not Available potassium chloride ER 20 mEq tablet,ex tended release(p art/cryst ) DISSOLVE 1 TABLET IN 6 OUNCES OF WATER OR JUICE ONCE DAILY. TAKE AFTER A MEAL active Not Available Not Available No t Available methocarb earlene 750 mg tablet 11/21 completed Not Available Not Available Not Available gentamici n 0.3 % eye drops 12/12 completed Not Available Not Available Not Available dipyridam ole 75 mg tablet active Not Available Not Available Not Available trazodone 100 mg tablet active Not Available Not Available Not Available nicotine (polacril ex) 4 mg gum active Not Available Not Available Not Available dicyclomi ne 20 mg tablet active Not Available Not Available Not Available meclizine 25 mg tablet Take 1 tablet 3 times a day by oral route as needed. 06/03 completed Not Available Not Available Not Available flunisoli de 25 mcg (0.025 %) nasal spray 07/06 completed Not Available Not Available Not Available cephalexi n 500 mg capsule 12/12 completed Not Available Not Available Not Available doxepin 100 mg capsule 11/29 completed Not Available Not Available Not Available methylpre dnisolone 8 mg tablet active Not Available Not Available Not Available pantopraz ole 40 mg tablet,de layed release active Not Available Not Available Not Available cyanocoba suhas (vit B-12) 1,000 mcg/mL injection solution active Not Available Not Available Not Available mirtazapi ne 30 mg tablet 12/26 completed Not Available Not Available Not Available trazodone 150 mg tablet TAKE 2 TABLETS BY MOUTH EVERY DAY AT BEDTIME active Not Available Not Available No t Available lisinopri l 10 mg tablet 11/29 completed Not Available Not Available Not Available prednison e 50 mg tablet active Not Available Not Available Not Available promethaz ine 25 mg tablet active Not Available Not Available Not Available polymyxin B sulfate 10,000 unit-trim ethoprim 1 mg/mL eye drops 12/12 completed Not Available Not Available Not Available valsartan 320 mg tablet active Not Available Not Available Not Available candesart an 16 mg tablet TAKE 1 TABLET BY MOUTH EVERY DAY active Not Available Not Available No t Available losartan 25 mg tablet 11/29 completed Not Available Not Available Not Available hydrochlo rothiazid e 12.5 mg capsule Take 1 capsule every day by oral route. 05/11 completed Not Available Not Available Not Available fluoxetin e 10 mg capsule TAKE 1 CAPSULE BY MOUTH EVERY DAY active Not Available Not Available No t Available gabapenti n 300 mg capsule 12/12 completed not taking Not Available Not Available Not Available loxapine succinate 10 mg capsule 07/06 completed Not Available Not Available Not Available Banophen 25 mg capsule TAKE 1 CAPSULE BY MOUTH EVERY 6 HOURS NEEDED FOR ALLERGIE S active Not Available Not Available No t Available monteluka st 10 mg tablet TAKE 1 TABLET BY ORAL ROUTE EVERY DAY IN THE EVENING 10/17 completed Not Available Not Available Not Available capsaicin 0.025 % topical cream APPLY THIN LAYER TO AFFECTED AREA THREE TIMES DAILY active Not Available Not Available No t Available olanzapin e 15 mg tablet 12/12 completed Not Available Not Available Not Available pravastat in 20 mg tablet TAKE 1 TABLET(S ) EVERY DAY BY ORAL ROUTE IN THE EVENING. 12/12 completed not taking Not Available Not Available Not Available hydrochlo rothiazid e 25 mg tablet TAKE 1 TABLET BY MOUTH EVERY MORNING 2020 active Not Available Not Available Not Avai lable ziprasido ne 40 mg capsule 12/12 completed Not Available Not Available Not Available mirtazapi ne 15 mg tablet Take 0.5 tablets every day by oral route at bedtime for 30 days. active Not Available Not Available No t Available gabapenti n 100 mg capsule Take 1 capsule 3 times a day by oral route for 30 days. 12/12 completed Not Available Not Available Not Available Mellaril 150 mg tablet Take 2 tablets every day by oral route. 06/03 completed Not Available Not Available Not Available hydroxych loroquine 200 mg tablet 12/12 completed Not Available Not Available Not Available levofloxa damien 500 mg tablet 10/17 completed Not Available Not Available Not Available zolpidem 10 mg tablet active Not Available Not Available Not Available methylpre dnisolone 4 mg tablets in a dose pack 12/12 completed Not Available Not Available Not Available Vitamin D2 1,250 mcg (50,000 unit) capsule Take 1 capsule every week by oral route. 12/26 completed Not Available Not Available Not Available hydrocodo ne 10 mg-acetam inophen 650 mg tablet active Not Available Not Available Not Available haloperid ol 2 mg tablet Take 1 tablet every day by oral route in the morning for 30 days. 04/06 completed Not Available Not Available Not Available trifluope razine 1 mg tablet 12/12 completed Not Available Not Available Not Available topiramat e 100 mg tablet active Not Available Not Available Not Available fluticaso ne propionat e 50 mcg/actua tion nasal spray,alin pension [place] 1 spray every day by intranas al route. active Not Available Not Available No t Available doxycycli ne hyclate 100 mg tablet active Not Available Not Available Not Available loratadin e 10 mg tablet Take 1 tablet every day by oral route. 02/01 completed Not Available Not Available Not Available ipratropi um bromide 0.02 % solution for inhalatio n Inhale 2.5 mL every 6 hours by inhalati on route. 2014 active Rx by pulmonol ogy Not Available Not Available Not Available naproxen 500 mg tablet 10/17 completed Not Available Not Available Not Available nicotine 7 mg/24 hr daily transderm al patch active Not Available Not Available Not Available Ventolin HFA 90 mcg/actua tion aerosol inhaler INHALE 2 PUFFS BY MOUTH EVERY 6 HOURS NEEDED active Not Available Not Available No t Available hydroxyzi ne pamoate 25 mg capsule Take 1 capsule 3 times a day by oral route for 30 days. 12/12 completed Not Available Not Available Not Available Siltussin -DM 10 mg-100 mg/5 mL oral syrup TAKE TWO TEASPOON SFUL ( 10ML) EVERY 4 HOURS active Not Available Not Available No t Available Mucinex 600 mg tablet, extended release TAKE 1 TABLET(S ) EVERY 12 HOURS BY ORAL ROUTE. 10/17 completed Not Available Not Available Not Available guaifenes in 400 mg tablet Take 1 tablet every 4 hours by oral route as needed for 5 days. 12/26 completed Not Available Not Available Not Available nicotine (polacril ex) 4 mg buccal lozenge active Not Available Not Available Not Available rosuvasta tin 5 mg tablet active Not Available Not Available Not Available rosuvasta tin 10 mg tablet active Not Available Not Available Not Available rosuvasta tin 20 mg tablet active Not Available Not Available Not Available bupropion HCl XL 150 mg 24 hr tablet, extended release 07/06 completed Not Available Not Available Not Available topiramat e 50 mg tablet 11/29 completed Not Available Not Available Not Available duloxetin e 20 mg capsule,d elayed release 12/12 completed not taking Not Available Not Available Not Available duloxetin e 60 mg capsule,d elayed release active Not Available Not Available Not Available lactulose 10 gram/15 mL oral solution 12/12 completed Not Available Not Available Not Available pregabali n 75 mg capsule active Not Available Not Available Not Available pregabali n 150 mg capsule active Not Available Not Available Not Available zolpidem ER 12.5 mg tablet,ex tended release,m ultiphase active Not Available Not Available No t Available Chantix 1 mg tablet 10/17 completed Not Available Not Available Not Available paliperid one ER 9 mg tablet,ex tended release 24 hr 12/26 completed Not Available Not Available Not Available paliperid one ER 3 mg tablet,ex tended release 24 hr Take 2 tablets every day by oral route at bedtime. 11/29 completed Not Available Not Available Not Available Symbicort 160 mcg-4.5 mcg/actua tion HFA aerosol inhaler INHALE 2 PUFFS BY MOUTH TWICE A DAY 11/29 completed Not Available Not Available Not Available Symbicort 80 mcg-4.5 mcg/actua tion HFA aerosol inhaler active Not Available Not Available Not Available Invega Sustenna 234 mg/1.5 mL intramusc ular syringe Inject 1.5 mL every month by intramus cular route. active Not Available Not Available No t Available Senexon-S 8.6 mg-50 mg tablet TK 2 TS PO QD IN THE NURA PRN active Not Available Not Available No t Available Dulera 200 mcg-5 mcg/actua tion HFA aerosol inhaler INHALE 2 PUFFS BY MOUTH TWICE DAILY 11/29 completed Not Available Not Available Not Available Adult Robitussi n Peak Cold DM 10 mg-100 mg/5 mL oral liquid Take 10 mL every 4 hours by oral route for 5 days. 12/26 completed Not Available Not Available Not Available Chantix Starting Month Box 0.5 mg (11)-1 mg (42) tablets in dose pack 10/17 completed Not Available Not Available Not Available Banophen 50 mg capsule 11/29 completed Not Available Not Available Not Available Combivent Respimat 20 mcg-100 mcg/actua tion solution for inhalatio n active Not Available Not Available Not Available Aerospan 80 mcg/actua tion HFA aerosol inhaler Inhale 2 puffs twice a day by inhalati on route. 12/12 completed Not Available Not Available Not Available Virtussin AC 10 mg-100 mg/5 mL oral liquid 11/29 completed Not Available Not Available Not Available Incruse Ellipta 62.5 mcg/actua tion powder for inhalatio n active Not Available Not Available Not Available Nicorette 2 mg buccal mini lozenge active Not Available Not Available Not Available Caplyta 42 mg capsule active Not Available Not Available Not Available Vitals Date Recorded Body height Body mass index (BMI) Body weight Heart rate Respiratory rate Body temperature Oxygen saturation Oxygen saturation in Arterial blood by Pulse oximetry Systolic blood pressure Diastolic blood pressure Provider Name and Address Organization Details Last Updated DateTime 8 160.02 cm 28.3 kg/m2 58190.3 4 g 111 /min 16 /min 98.5 [degF] 96 % 96 % 122 mm[Hg] 80 mm[Hg] Ama [facility] 8 14:19:51 Date Recorded Body height Body mass index (BMI) Body weight Oxygen saturation Oxygen saturation in Arterial blood by Pulse oximetry Heart rate Body temperature Respiratory rate Systolic blood pressure Diastolic blood pressure Provider Name and Address Organization Details Last Updated DateTime 8 160.02 cm 27.8 kg/m2 65568 g 97 % 97 % 92 /min 98.4 [degF] 18 /min 128 mm[Hg] 82 mm[Hg] Ermelinda Matos [facility] 8 14:41:10 Date Recorded Body height Body mass index (BMI) Body weight Body temperature Oxygen saturation Oxygen saturation in Arterial blood by Pulse oximetry Heart rate Systolic blood pressure Diastolic blood pressure Provider Name and Address Organization Details Last Updated DateTime 1 160.02 cm 30.1 kg/m2 64030.7 g 98.1 [degF] 98 % 98 % 88 /min 134 mm[Hg] 82 mm[Hg] [facility] 14:19:17 Date Recorded Body height Body mass index (BMI) Body weight Heart rate Respiratory rate Body temperature Systolic blood pressure Diastolic blood pressure Provider Name and Address Organization Details Last Updated DateTime 7 161.29 cm 31.2 kg/m2 68216.0 3 g 108 /min 12 /min 98.4 [degF] 130 mm[Hg] 80 mm[Hg] Negrito Alator[facility] 7 10:58:27 Social History Question Answer Notes LastModified by Organizat ion Details LastModified Time Tobacco Smoking Status Current Every Day Smoker Ama [facility] 12/12/2017 14:14:44 What Is Your Level Of Alcohol Consumption? None Information not available 07/06/2014 Are You Blind Or Do You Have Difficulty Seeing? No Information not available 04/06/2016 What Is Your Level Of Caffeine Consumption? Moderate Information not available 07/06/2014 How Much Tobacco Do You Chew? None Information not available 04/06/2016 Are You Currently Employed? No Information not available 08/13/2014 Are You Deaf Or Do You Have Serious Difficulty Hearing? No Information not available 04/06/2016 What Type Of Diet Are You Following? REGULAR Information not available 08/13/2014 Which Illicit Or Recreational Drugs Have You Used? No Information not available 08/13/2014 Education 12 Information no t available 08/13/2014 What Is Your Occupation? [employer]SI Information not available 12/12/2017 Are There Any Guns Present In Your Home? No Information not available 08/13/2014 Hard Of Hearing Or Deaf In One Or Both Ears? No Information not available 08/13/2014 Legally Blind In One Or Both Eyes? No Information no t available 08/13/2014 Live Alone Or With Others? Alone Information not available 07/06/2014 What Was The Date Of Your Most Recent Tobacco Screening? 11/29/2020 Information not available 11/29/2020 How Many Children Do You Have? 0 Information not available 08/13/2014 Seat Belts Used Routinely Yes Information not available 08/13/2014 Are You Sexually Active? No Information not available 08/13/2014 Smoke Alarm In Home Yes Information not available 08/13/2014 At What Age Did You Start Smoking Tobacco? 18 Information not available 12/12/2017 Are You Passively Exposed To Smoke? Yes Information no t available 04/06/2016 How Much Tobacco Do You Smoke? 0.25 PPD Information not available 11/29/2020 General Stress Level Low Information not available 08/13/2014 Do You Use Sunscreen Routinely? No Information not available 08/13/2014 Sex: Unknown Functional Status Question Answer Note LastModified by Organizat ion Details LastModified Time Do you have difficulty walking or climbing stairs? Yes Information not available 04/06/2016 Do you have difficulty doing errands alone? No Information not available 04/06/2016 Are you able to care for yourself? Yes Information not available 07/06/2014 Do you have difficulty dressing or bathing? No Information not available 04/06/2016 What is your exercise level? Occasional Information not available 12/12/2017 Mental Status Question Answer Note LastModified by Organization D etails LastModified Time Do you have difficulty concentrating, remembering or making decisions? Yes Information no t available 04/06/2016 Family History Relationship Description Onset Age of this Age Resolved Age Notes LastModified by Organization Details LastModified Time Mother Diabetes mellitus Not available 2015 11:16:24 Mother Heart disease Not available 2015 11:16:24 Mother Kidney disease Not available 2015 11:16:24 Mother Coronary arterioscler osis Not available 2017 14:13:07 Mother Hypertensive disorder Not available 2017 14:13:25 Mother Hypercholest erolemia Not available 2017 14:13:32 Father Malignant tumor of lung 74 Not available 2015 11:16:24 Father Pneumonia Not availab le 04/06/2016 11:16:24 Father Malignant tumor of colon 70 Not available 2015 11:16:24 Father Alcohol abuse Not available 2017 14:13:52 Brother Migraine Not available 12/12/2017 14:14:27 Medical History Condition Response Anxiety Disorder Y Muscle, Joint, or Bone Problems Y Other Acid Reflux (GERD) Y Kidney or Bladder Problems Y Allergies Y Asthma Y COPD Y Depression Y High Cholesterol Y Headaches Y Gynecological History Statement/Question Response Current Control Method Hysterectom y Obstetrics History GPAL:G 0 P 0 0 0 0 Immunizations Vaccine Type Date Status Note Provider Nam e and Address Organization Details Recorded Time Influenza, split virus, quadrivalent, preservative 6 completed Not Available [facility] 08/09/2019 02:43:39 Tdap 6 completed Not Available [facility] 08/09/2019 02:43:05 Influenza, split virus, quadrivalent, preservative 5 completed Not Available [facility] 08/09/2019 02:32:09 Past Encounters Encounter ID Performer Location Encounter Start Date Encounter Closed Date Diagnosis/Indication Diagnosis SNOMED-CT Code Diagnosis ICD10 Code Diagnosis Note [id number] MARJORIE Hollingsworth [facility] [address] [facility] [place] [address] 07/06/2014 11:15:09 07/07/2014 09:42:26 Vitamin D deficiency 30758627 Disorder o f thyroid gland 18207848 [id number] Kelsey Rouse [facility] [address] [facility] [place] [address] 08/13/2014 09:33:21 08/13/2014 10:19:57 Dyspnea 975461926 Abnormal weight gain 773842228 Chronic re nal impairment 788032365 Discussed we may initiate diuretic pending lab results Chest pain [id number] KRISTOPHER Rincon [facility] [address] [facility] [place] [address] 09/04/2014 14:03:08 09/04/2014 14:59:23 Abnormal weight gain 000084946 Edema 339921180 Acute exac erbation of chronic obstructive pulmonary disease 605569218 Nebulizer and medication s to be obtained through [place] [id number] Maribel Nieto LPN [place] [facility] [address] [facility] [place] [address] 09/28/2014 10:33:48 09/28/2014 11:32:07 Edema 261557087 Abnormal weight gain 625467345 Emphysema 82921283 Asthma 855088395 [id number] [facility] [address] [place] [address] 10/30/2014 13:53:32 10/30/2014 15:25:37 Vitamin D deficiency 17444745 Edema 447407611 Chronic back pain 068765448 Dizziness 696453458 Very rare, but has used meclizine in the past and wants a refill. Acute exac erbation of chronic obstructive pulmonary disease 181799763 Asthma 507241162 Emphysema 60347961 [id number] MARJORIE Hollingsworth (Adult Med) [address] [place] [phone] 01/04/2015 09:14:05 01/04/2015 09:55:26 Vitamin D deficiency 12478961 Edema 368507586 Chronic back pain 298472971 Dizziness 943379587 Very rare, but has used meclizine in the past. Does not need refill at this time Acute exac erbation of chronic obstructive pulmonary disease 089603296 Asthma 775633489 Emphysema 75159889 Obesity 684425408 2 glenn h weight loss goal: 10lbs She will contact [employer] and have them fax over the paperwork for [employer] Chronic re nal impairment [id number] MARJORIE Hollingsworth (Adult Med) [address] [place] [address] 03/03/2015 14:51:11 03/03/2015 16:53:50 Chronic back pain 919263245 Edema 551862948 Asthma 405454949 Emphysema 10227311 Abnormal weight gain 777929541 Talked about it could possibly be her depression . She states that it all started back in June when her father . Encouraged her to continue with weight watchers She states that right now she is walking 2 blocks TID - encouraged her to increase that to 4 blocks TID - she states that she will try this and also try to use the treadmill at her apartment. Fatigue 28638624 I advis ed to her talk with her psychiatri st. I have a suspicion that her psych meds need to be adjusted because she appeared very lethargic. She is looking forward to her mother and sister coming to visit this weekend (they come every other month). I asked to see if they would possibly be able to make the trip more frequently because she states that her mood is better when she sees them (they live 2.5 hours away) [id number] CLIFFORD Ritter (Adult Med) [address] [place] [address] 03/26/2015 13:48:02 03/26/2015 16:05:38 Slurred speech 052982765 Today patient is at her baseline that I know her at. She always has slowed speech and is depressed. I see not acute changes but based on the fact that [place] is wanting a stroke r/o and it is Sunday afternoon before a holiday weekend I sent patient to the ER Discussed with patient and with patient's caregiver that if [place] would like a stroke r/o patient needs to go to the ER. Patient's caregiver states that patient has been sleeping much more recently and has not been herself. He confirmed that [place] wanted patient evaluated for a possible stroke. I told them that if that is the case patient needs to be taken to the ER. I suspect that her slurred speech, slobbering , and lethargy could be a result of stopping and starting Ivenga. In addition, patient states that they have also changed some of her other medication s at [place] so she feels very off. I believe this is a medication issue more than a stroke issue. Caregiver v/u and is taking patient to [place] ER. Tabitha called over to the ER to give them a heads up that patient is coming. [id number] SEBASTI[facility]N Philippe (Adult Med) [address] [place] [address] 04/26/2015 08:53:11 04/26/2015 09:27:54 Chronic back pain 671408549 R52 f/u appointmen t with Dr. Garcia on 05/05 - patient asked if she could have tramadol for her neck pain. She was given this in the ED and states that it works better than the Flexeril for her neck pain. She is also on Draper for pain - she states that she should have enough medication to get her to her appointmen t with pain management on 05/05. I do not believe that she is drug seeking. I told her that if she needs tramadol to get her to her appointmen t on 05/05 to call in for that. Needs infl uenza immunization 341806336 Z28.3 Chronic re nal impairment 696224614 N18.9 f/u appointmen t with nephrologi st on 05/04 [id number] CLIFFORD Ritter (Adult Med) [address] [place] [phone] 06/03/2015 08:57:27 06/03/2015 09:28:57 Chronic renal impairment 502528644 N18.9 Everything checked out with nephrology will have a f/u in one year Schizoaffe ctive disorder 69377836 F25.9 Patient the best I have ever seen her. Smiling, no slurred or slowed speech and very engaging. States she feels much better now that she is off of Invega. Psych has talked about taking pyridoxine for nightmares . She has been prescribed this but has not picked it up. [id number] CLIFF[facility] Ritter (Adult Med) [address] [place] [phone] 07/02/2015 09:51:24 07/02/2015 11:15:11 Malodorous urine 280599420 R82.90 Advised to increase water intake - I believe this that her strong urine smell is 2/2 dehydratio n advised to drink 2 liters water/day - if urine still strong smelling next week after doing this then she should RTC advised that her urine should also be clear when she pees - she has not noticed the color of her urine because she pees so infrequent ly [id number] CL[facility] Ritter (Adult Med) [address] [place] [address] 08/06/2015 13:58:27 08/06/2015 17:48:13 Spinal stenosis 44016397 M48.00 States that Snehal Alvarado PA-C for Dr. Nunez talked with her about doing fentyl patches and I advised her to discuss this with Dr. Garcia Will send over neurosurge ry note to Dr. Garcia at the [facility] in [place] [id number] CLIFFORD Ritter (Adult Med) [address] [place] [phone] 09/03/2015 09:05:56 09/03/2015 09:51:12 Knee pain 72160980 M25.561 Possible medial mensical tear after a fall and twist on her right knee - will order a MRI d/t reduced ROM, valgus stress positive, medial joint line tenderness If MRI is denied, will begin with PT Advised to rest and ice her knee and avoid strenuous movement She is on PO pain medication for chronic back pain so that is helping with her knee pain [id number] CLIFFORD Ritter (Adult Med) [address] [place] [id number] 10/07/2015 12:19:14 10/07/2015 12:56:00 Hip pain 06380082 M25.551 WIll begin with right hip xray - depending upon results either PT or ortho next Chronic ki dney disease stage 3 410553283 N18.3 [id number] CILFFORD Ritter (Adult Med) [address] [place] [address] 11/22/2015 08:41:24 11/22/2015 10:38:36 Spinal stenosis 63914761 M48.00 Patient cleared from a PCP standpoint . In clearance note, listed all of the specialist s that she sees and noted that if they have questions concerning anything to do with those specialtie s for clearance to contact them [id number] CLIFFORD Ritter (Adult Med) [address] [place] [phone] 12/07/2015 09:48:00 12/07/2015 11:27:34 Hyperkalemia 57848495 E87.5 Will redraw potassium today and send to nephrology Acute exac erbation of chronic obstructive pulmonary disease 121676324 J44.1 Will recheck CBC today - WBC last week was elevated at 17.1 [id number] CLIFFORD Ritter (Adult Med) [address] [place] [id number] 01/13/2016 10:39:21 01/13/2016 11:50:14 Spinal stenosis 27785045 M48.00 Patient has a hx/o spinal stenosis with spinal surgeries - will submit order for new hospital bed mattress. Original mattress was ordered by Dr. Garcia. Will submits notes from Dr. Gaffney as well. [id number] CLIFFORD R[facility] (Adult Med) [address] [place] [phone] 02/28/2016 10:02:35 02/28/2016 11:20:40 At increased risk for falls 724886848 Z91.81 Discussed eating 3 times/day so that her blood sugars don't drop so low when she is feeling shaky - her shakiness could be 2/2 poor nutrition Patient states that this dizziness is nothing new for her - states that it was worsened by the steroids - completed pack Patient states at this time she knows she is due to go back for PT [employer] worker requesting wheelchair with seat - will prescribe Patient to complete fasting blood work prior to next appointmen t Chronic ob structive pulmonary disease 17875342 J44.9 Appointmen t in 2 weeks with pulmonolog y Chronic ki dney disease stage 3 393572215 N18.[address] Rodríguez is in Oct Screening for malignant neoplasm of colon 760544421 Z12.11 Family his tory of cancer of colon 618251558 Z80.0 Obesity 268894435 E66.9 2 month weight loss goal: 10lbs She will contact [employer] and have them fax over the paperwork for [employer] Allergic rhinitis 248307 04 J30.9 [id number] CLIFFORD Ritter (Adult Med) [address] [place] [id number] 04/06/2016 10:39:56 04/06/2016 11:46:58 Active or passive immunization 642826611 Z23 Spinal stenosis 80408857 M48.00 Patient has a hx/o spinal stenosis with spinal surgeries - will submit order for new hospital bed mattress. Original mattress was ordered by Dr. Garcia. Will submits notes from Dr. Gaffney as well. At [facility] ed risk for falls 853898190 Z91.81 Discussed eating 3 times/day so that her blood sugars don't drop so low when she is feeling shaky - her shakiness could be 2/2 poor nutrition Patient states at this time she knows she is due to go back for PT Chronic ki dney disease stage 3 171211426 N18.[address] Rodríguez is in Apr Hyperlipidemia 06340683 E78.5 Initiate statin tx Obesity 174170731 E66.9 2 month weight loss goal: 10lbs She will contact [employer] and have them fax over the paperwork for [employer] Chronic ob structive pulmonary disease 22623748 J44.9 Appointmen t in 2 weeks with pulmonolog y Edema 455836245 R60.9 Increased blood pressure 83430165 R03.0 120/98 - NAD - will readdress at next visit Her BP is normally WNL She is currently taking HCTZ for edema as well - could be helping with the BP and she could have dx of HTN [id number] [facility] (Adult Med) [address] [place] [address] 05/11/2016 14:08:24 05/12/2016 10:18:52 Multiple bruising 698495646 T14.8 abnormal, non-norman ing erythemato us bruising of bilateral forearms and left cheek with elevated WBC - will refer to hematology 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 Hatfield in [facility] send for most recent note from Dr. Brink Patient to sign MALCOLM for records from here to refer to rheumatolo gy [id number] CLIFFORD Ritter (Adult Med) [address] [place] [address] 07/26/2016 09:06:23 07/26/2016 10:06:17 Upper respiratory infection 99061255 J06.9 Advised to drink plenty of waterAlter tate ibuprofen and tylenol for painRestOT C cough syrup PRNNo need for abx at this timeIf sx's worsen contact clinic and I will put in abx [id number] CLIFF[facility] Ritter (Adult Med) [address] [place] [phone] 08/02/2016 10:30:09 08/02/2016 14:37:47 Systemic lupus erythematosus 15940276 M32.9 No labs or office notes received yesterday from damian . WIll contact patient when we have received the informatio n.Will await to see the labs and note from damian benson prior to contact their office concerning me following [facility] Since they are a specialty office and ordered all of the labs, a specialist needs to address the labs with the patient and follow her SLE. WIll see who can follow her within the rheumat[facility] office at [facility] [address] White [place] [id number] CLIFFORD Ritter (Adult Med) [address] [place] [phone] 10/17/2016 09:14:49 10/17/2016 18:05:45 HIV screening 194098802 Z11.4 Chronic neck pain 178194 9126 107 M54.2 s/p surgery with a plate being discharged from Dr. Bishop because she has completed surgery and tx and no need for further tx from him at this time Will prescribe tizanidine 4mg BID Chronic ob structive pulmonary disease 98293914 J44.9 c/w current medication [id number] CLIFF[facility] Ritter (Adult Med) [address] [place] [address] 11/14/2016 09:20:22 11/15/2016 11:28:07 Acute bronchitis 29906419 J20.9 d/t hx/o smoking and pneumonia and sx's > 2 weeks, will tx with abxTake abx as prescribeU se albuterol PRNStay away from cigarettes Advised to drink plenty of waterAlter tate ibuprofen and tylenol for painRestOT C cough syrup PRN Chronic ob structive pulmonary disease 79874564 J44.9 c/w current medication Tobacco de pendence syndrome 26238631 F17.290 Advised to quit smoking [id number] [facility]IFF[facility] Ritter (Adult Med) [address] [place] [address] 0 12/26/2016 09:10:47 12/26/2016 10:05:21 Hyperlipidemia 84592859 E78.5 Will recheck levels Chronic ob structive pulmonary disease 88252655 J44.9 c/w current medication stop smokingcon tinue to follow with Dr. Milian Chronic ki dney disease stage 3 611887607 N18.3 Next appointmen t with Dr. Rodríguez is in Apr 2017 Systemic l upus erythematosus 90828955 M32.9 Followed by [facility], Dr. White Multiple bruising 545801 [address] Brink Allergic r eaction to drug 731767187 T50.905D Patient has been d/c'ed on meloxicam and Ivega States that they told her that her throat has 75% blockage from the medication Patient does not want to see ENT at this time - advised that if she would like to see them to contact clinic - her adverse reaction was a swollen tongue Atopic dermatitis 209659 01 L20.9 Allergic disposition 609 274622 Z91.09 [id number] [facility] Ritter (Adult Med) [address] [place] [address] 02/01/2017 08:58:06 02/01/2017 09:50:04 Hyperlipidemia 06646589 E78.5 Will recheck levels Chronic ob structive pulmonary disease 79137982 J44.9 c/w current medication stop smokingcon tinue to follow with Dr. Milian Chronic neck pain 330334 1414 107 M54.2 s/p surgery with a plate being discharged from Dr. Bishop because she has completed surgery and tx and no need for further tx from him at this time Will prescribe tizanidine 4mg BID Tobacco de pendence syndrome 35129933 F17.290 Advised to quit smoking Schizoaffe ctive disorder 67930726 F25.9 Patient the best I have ever seen her. Smiling, no slurred or slowed speech and very engaging. States she feels much better now that she is off of Invega. Psych has talked about taking pyridoxine for nightmares . She has been prescribed this but has not picked it up. Systemic l upus erythematosus 62215541 M32.9 Followed by [facility], Dr. White Chronic ki dney disease stage 3 779632367 N18.3 Next appointmen t with Dr. Rodríguez is in Apr 2017 Obesity 278237365 E66.9 Advised 30 minutes of exercise 5 days/week Advised to not drink her calories Advised 3 balanced meals/day with plenty of fruits and vegetables Easy bruising 077736603 R58 WIll re-refer to hematology at this timeI tried to contact Dr. White's office but could not get through. [facility] will make patient aware of new referral and will not send to [facility] [id number] [facility] Ritter (Adult Med) [address] [place] [address] 02/22/2017 08:43:57 02/26/2017 11:45:12 Leukocytosis 020983797 D72.829 Advised patient that I would really like her to see hematology at this time - patient given number to contact Dr. Bernard's office - [facility] to call patient this afternoon to confirm that she scheduled an appointmen t with hematology - will send ER to hematology as well Cholelithi asis without obstruction 91968460 K80.20 Patient states that she was told that she could not have gallbladde r removed d/t elevated WBC count - advised that I will re-send her to GI Dehydration 83402113 E86 .0 Advised that if she is not able to keep anything down and is having consistent diarrhea, she needs to go back to the ER - patient declined and stated that she would not go because she doesn't want to get admitted - tried to encourage her to go - advised to drink as much liquid as possible and f/u with hematology and GIAdvised that if sx's persist/wo rsen, it is in her best interest to go to ther [id number] [facility] Ritter (Adult Med) [address] [place] [address] 04/19/2017 10:24:31 04/19/2017 13:24:53 Chronic obstructive pulmonary disease 91479299 J44.9 c/w current medication stop smokingcon tinue to follow with Dr. Milian Obesity 710235158 E66.9 Advised 30 minutes of exercise 5 days/week Advised to not drink her calories Advised 3 balanced meals/day with plenty of fruits and vegetables Chronic ki dney disease stage 3 082380186 N18.3 Next appointmen t with Dr. Rodríguez is in Apr 2017 Systemic l upus erythematosus 27528293 M32.9 Followed by [facility], Dr. White - has an appointmen t today - advised to address bruising concern with Dr. White Hyperlipidemia 32193925 E78.5 Will recheck levels Multiple bruising 075494 [address] Brink Vitamin D deficiency 347 27569 E55.9 Repeat at next visit Tobacco de pendence syndrome 52218815 F17.290 Advised to quit smoking Cholelithi asis without obstruction 30066825 K80.20 to be evaluated by [facility] patient, no RUQ pain and is asymptomat ic. Schizoaffe ctive disorder 98318918 F25.9 Patient is manic today. Pressure speech, paranoia. Advised to f/u with psych Irritable bowel syndrome 33373375 K58.9 Chronic neck pain 509499 3444 107 M54.2 tizanidine 4mg BID has been followed by Dr. Bishop in the past [id number] Rigoberto Aguilar MD [facility] [address] [place] [address] 08/21/2017 13:28:59 09/02/2017 12:54:04 [id number] MD Robel Gonzalez (Adult Med) [address] [place] [address] 12/12/2017 13:43:55 12/14/2017 17:22:00 Chronic renal impairment 938998709 N18.9 pt sees nephro Spinal stenosis 77818953 M48.00 pt is seeing and taking [facility] med[facility] bed Schizoaffe ctive disorder 13741571 F25.9 pt was seeing psychiatrhilda bernal at [place] , last seen a month ago , took her off of med per pt Chronic ob structive pulmonary disease 71649474 J44.9 continue inhalespt to quit smoking [id number] Tati Salazar MD [facility] [address] [place] [address] 06/27/2018 13:54:39 06/28/2018 13:33:34 [id number] Rainer Levine MD [facility] (Adult Med) [address] [place] [address] 11/29/2020 13:32:17 11/30/2020 13:58:04 Edema 980044739 R60.9 Chronic ob structive pulmonary disease 32312268 J44.9 Health Concerns Section Related Observation LastModified by Organization Detai ls LastModified Time None Recorded Concern Status LastModified by Organization Details LastModified Time None Recorded Advance Directives Directive None Recorded Payers Encounter Date Sequence Insurance Name Policy Number Policy Butler Covered Member ID Butler Member ID Guarantor Name 04/19/2017 1 [facility] PRIOR TO 01/20/2021 (MEDICAID REPLACEMENT - HMO) Melinda Persaud [id number] Melinda Persaud 08/21/2017 1 [facility] PRIOR TO 01/20/2021 (MEDICAID REPLACEMENT - HMO) Melinda Persaud [id number] Melinda Persaud 12/12/2017 1 [facility] PRIOR TO 01/20/2021 (MEDICAID REPLACEMENT - HMO) Melinda Persaud [id number] Melinda Persaud 06/27/2018 1 [facility] PRIOR TO 01/20/2021 (MEDICAID REPLACEMENT - HMO) Melinda Persaud [id number] Melinda Persaud 11/29/2020 1 [facility] PRIOR TO 01/20/2021 (MEDICAID REPLACEMENT - HMO) Melinda Persaud [id number] Melinda Persaud Notes Date Note Type Note Provider Name and Address Organization Details Recorded Time 04/19/2017 text/html 52YO female here with her worker from [employer] to discuss test results from her ER visit from 02/19/17. States that she received results and saw that the paperwork states that she was dx'ed with kidney stones, gallstones, pulmonary cardiac disease, and her RBC was elevated and my red blood cell count has never been elevated, it has alway been my white blood cell count. States that she is very confused concerning this. States that no one ever told her about any of these things.States that she saw the database management specialist 'who was a quack and didn't know what they were doing' and she didn't have any bruising when she was in the office there but then right after her appointment she developed darkened skin and bruising on bilateral forearms and legs and states that she doesn't heal well after falling.Patient would like to go over results.She has an appointment with rheumatology today (Dr. White).She has an appointment next week with GI. States that 3 weeks ago she moved out of [place] and is living in a handicap friendly facility but has fallen 3 times because she is trying to get adapted to her new surroundings. She is upset that her new psychiatrist will not prescribe Xanax but will prescribe Valium or Klonopin or Ativan. 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 Tennille Quiroga PA-C Attn: Accounting,[address] [place], [address], [facility] 04/19/2017 12:21:38 12/12/2017 text/html New pt with mult iple chronic problems is here to establish pcp. pt is poor historian. Pt used to take several psych meds , [facility] psychiatrist [facility] tapered her meds and stopped them per pt .pt last seen psychiatrist in 11/07 per pt . Pt is requesting hospital bed , could not lie down due to pain in back and leg per pt . Pt sees neurologist / , taking pain pill . pt also sees nephro for crf. 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 Joselo Aldana MD Attn: Accounting,[address] [facility], [place], [address], [facility] 12/13/2017 14:45:51 11/29/2020 text/html Needs a PCP. Has had increased sensitivity in her skin for about three years. 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 Recently hospitalized at [facility] in 2020 but does not remember details. Rainer Levine MD Attn: Accounting,[address] , [place], [address], [facility] 11/29/2020 17:50:37 OBGyn Episode No OBEpisode recorded.
--- OUTSIDE RECORDS SUMMARY | 2024-09-02 10:13 | XMS_ITS | Encounter Summary ---
Author Organization [facility] Address [facility] [place] [address] Care Team Providers Care Leases And Land Supervisor Name Role Phone Eulalia Lema DO Primary Care Provider [phone] Dayna Maki MD Primary Care Provider Dayna Maki MD Primary Care Provider Mj Lee MD Primary Care Provider [phone] Dayna Maki MD Unavailable [phone] Eulalia Lema DO Unavailable [phone] Dayna Maki MD Primary Care Provider Reason for Visit * Reason Onset Date Comments General 02/19/2018 black stools Encounter Details Date Type Department Care Team (Late st Contact Info) Description 02/19/2018 Nurse Triage [facility] General Internal Medicine [address] [facility] [address] [place] [address] Eulalia Lema DO [address] [facility] [place] [address] General (black stools) Social History Tobacco Use Types Packs/Day Years [...] * Telephone Encounter - Orly Sharma - 02/19/2018 10:08 AM CDT Pt states she has had black stools since Sunday. This nurse recommended that the pt be seen in the ED but pt is refusing. The pt is willing to make an acute care appt for this Sunday; she has to makean appt for a ride and she already has to be at the lab on Sunday. This nurse recommended to keep hydrated/eat well and to go to the ED if she cannot wait until her Sunday appt Reason for Disposition ??? Tarry or jet black-colored stool ??? Family history of cancer of intestines Answer Assessment - Initial Assessment Questions 1. APPEARANCE of BLOOD: What color is it? Is it passed separately, on the surface of the stool, or mixed in with the stool? Pt states she did not notice if there was blood but just noted that her stools were black. This hasbeen going on since Sunday 2. AMOUNT: How much blood was passed? Unknown 3. FREQUENCY: How many times has blood been passed with the stools? 4-5 times a day black stools, the pt has not noticed blood 4. ONSET: When was the blood first seen in the stools? (Days or weeks) This started on Sunday 5. DIARRHEA: Is there also some diarrhea? If so, ask: How many diarrhea stools were passed in past 24 hours? Denies 6. CONSTIPATION: Do you have constipation? If so, How bad is it? Denies. Pt takes medication to prevent constipation because she is on pain medication 7. RECURRENT SYMPTOMS: Have you had blood in your stools before? If so, ask: When was the last time? and What happened that time? Denies 8. BLOOD THINNERS: Do you take any blood thinners? (e.g., Coumadin/warfarin, Pradaxa/dabigatran, aspirin) Denies 9. OTHER SYMPTOMS: Do you have any other symptoms? (e.g., abdominal pain, vomiting, dizziness, fever) Pt has stomach pain all the time d/t gallstones. Pt states her stomach makes a weird sound only when lying down 10. : Is there any chance you are ? When was your last menstrual period? n/a Protocols used: STOOLS - UNUSUAL [id number], RECTAL [id number] Patient given within 2 weeks disposition, patient verbalizes understanding. Home care advice provided. Closing statement given. Patient warm transferred to scheduling team for further assistance in scheduling an appointment. documented in this encounter Plan of Treatment Not on file documented as of this encounter Visit Diagnoses Not on filedocumented in this encounter Additional Health Concerns Infection Onset Date Last Indicated Resolved Time COVID-19 Under Investigation 12/22/2020 12/22/2020 12/22/2020 7:58 PM CDT documented as of this encounter Care Teams Leases And Land Supervisor Relationship Specialty Start Date End Date Eulalia Lema DO PCP - General 02/18/18 03/20/18 Dayna Maki MD PCP - General 03/21/18 12/21/20 Dayna Maki MD PCP - General Internal Medicine 12/22/20 12/22/20 Mj Lee MD [address] [place] [address] PCP - General Internal Medicine 12/23/20 12/23/20 Dayna Maki MD [address] [place] [address] [place] [address] PCP - General 12/24/20 Dayna Maki MD 12/22/20 Eulalia Lema DO Resident - PCP Internal Medicine 02/15/18 documented as of this encounter
--- OUTSIDE RECORDS SUMMARY | 2024-09-02 10:13 | XMS_ITS | Encounter Summary ---
Author Organization [facility] Address [facility] [facility] [place] [address] Care Team Providers Care Flight Tower Dispatcher Name Role Phone Dayna Maki MD Primary Care Provider Dayna Maki MD Primary Care Provider Mj Lee MD Primary Care Provider [phone] Dayna Maki MD Unavailable [phone] Eulalia Lema DO Unavailable [phone] Dayna Maki MD Primary Care Provider Reason for Visit * Reason Onset Date Comments General 04/05/2018 pt is waiting fo r a call back when her test is scheduled Encounter Details Date Type Department Care Team (Late st Contact Info) Description 04/05/2018 Telephone [facility] General Internal Medicine [address] [facility] [address] [place] [address] Dayna Maki MD [address] [facility] [address] [place] [address] General (pt is waiting for a call back when her test is scheduled) Social History Tobacco Use Types Packs/Day Years [...] * Telephone Encounter - Orly Sharma - 04/05/2018 11:28 AM CDT Pt states that a test was supposed to be ordered for her feet? and she is waiting for a call back so she knows what she needs to do Pt recently saw Dr Slater on 04/03/18 and was told that a test was to be ordered/scheduled and that they would call her Pt is inquiring about this Please give the pt a call Thank you documented in this encounter Plan of Treatment Not on file documented as of this encounter Visit Diagnoses Not on filedocumented in this encounter Additional Health Concerns Infection Onset Date Last Indicated Resolved Time COVID-19 Under Investigation 12/22/2020 12/22/2020 12/22/2020 7:58 PM CDT documented as of this encounter Care Teams Flight Tower Dispatcher Relationship Specialty Start Date End Date Dayna Maki MD PCP - General 03/21/18 12/21/20 Dayna Maki MD PCP - General Internal Medicine 12/22/20 12/22/20 Mj Lee MD [address] [place] [address] [place] [address] PCP - General Internal Medicine 12/23/20 12/23/20 Dayna Maki MD [address] [place] [address] [place] [address] PCP - General 12/24/20 Dayna Maki MD 12/22/20 Eulalia Lema DO [address] [facility] [address] Resident - PCP Internal Medicine 02/15/18 documented as of this encounter
--- OUTSIDE RECORDS SUMMARY | 2024-09-02 10:13 | XMS_ITS | Clinical Summary ---
Author Organization [facility] Address [address] [place] [address] Care Team Providers Care Gore Maker Name Role Phone Dayna Maki MD Unavailable [phone] Eulalia Lema DO Unavailable [phone] Dayna Maki MD Primary Care Provider Source Comments [facility],non-owned Affiliates and Associated Physician Practices is amultiple site organization consisting of ambulatory clinics and hospital sitesin [place], [place], [place] and [place]. This disclosure is being madepursuant to the Care Everywhere program and may not contain all information available regarding this patient. Last updated 18.[facility] Allergies Active Allergy Reactions Criticality Noted Date Comments Aspirin Unknown 12/22/2020 Aspirin Anaphylaxis,Unknown High 03/16/2017 Venlafaxine Other High 03/01/2018 Not listed in old EPIC Venlafaxine Vomiting 12/22/2020 Fish Oil Unknown 12/22/2020 Contrast-Iodinated Agents For Ct/Other Anaphylaxis High 12/22/2020 Meloxicam Anaphylaxis High 03/01/2018 Meloxicam Anaphylaxis High 12/22/2020 Nsaids Anaphylaxis High 11/06/2017 Nsaids Other 12/22/2020 hives Fish Oil Anaphylaxis High 11/06/2017 Shellfish Allergy Anaphylaxis,Unknown High 7 Shellfish Allergy Anaphylaxis High 12/22/2020 Medications * Be aware that medications may not be up to date on this document. Alwaysverify current medications with the patient. Medication Sig Dispensed Refills Start Date End Date Status traZODone (DESYREL) 100 MG tablet Take 100 mg by mouth at bedtime Active acetaminophen (TYLENOL) 500 MG tablet Take 1,000 mg by mouth every 6 hours as needed for Fever or Pain Maximum allowable Acetaminophen amount = 4 Grams (4000 mg) / 24 hours. Active cyclobenzaprine (FLEXERIL) 10 MG tablet Take 10 mg by mouth 2 times daily Active zolpidem CR (AMBIEN CR) 12.5 MG tablet Take 12.5 mg by mouth nightly as needed for Insomnia Active candesartan (ATACAND) 16 MG tablet Take 16 mg by mouth once daily Active Lumateperone Tosylate (CAPLYTA) 42 MG CAPS Take 42 mg by mouth once daily Active hydroCHLOROthiazide (HYDRODIURIL) 25 MG tablet Take 25 mg by mouth once daily Active DULoxetine (CYMBALTA) 60 MG capsule Take 60 mg by mouth once daily Active Active Problems Problem Noted Date Diagnosed Date [...] Myalgia 07/11/2016 Insomnia 07/11/2016 Arthralgia 07/11/2016 Immunizations Name Administration Dates Next Due FLU VACCINE QUAD IIV4 SPLIT 0.25 ML IM 6,04/26/2015 INFLUENZA VACCINE 04/22/2015 INFLUENZA VACCINE, QUADR. (F LUZONE; FLULAVAL; FLUARIX; AFLURIA QUADRIVALENT; 6MO+), 0.5 ML (IIV4) 09/03/2020(Deferred: Patient Refused) PNEUMOCOCCAL PPSV23 12/16/2015 TDAP (7yrs+) 05/11/2016 Family History Medical History Relation Name Comments Arthritis - Rheumatoid Father Cancer - Colon Father Cancer - Lung Father CAD (Coronary Artery Disease) Mother CVA Mother Diabetes - Type 1 Mother High Cholesterol Mother Relation Name Status Comments Father Mother Social History Tobacco Use Types Packs/Day Years [...] Mass Index 28.38 12/22/2020 9:30 PM CDT Plan of Treatment Health Maintenance Due Date Last Done Comments COLOGUARD (AGES 45-75) - COLON CA SCREENING 1965 COLON MONITORING 1965 COLONOSCOPY - COLON CA SCREENING 1963 CT COLONOGRAPHY - COLON CA SCREENING 1965 Colorectal Cancer Screening 1965 FIT - COLON CA SCREENING 1963 FLEX SIG - COLON CA SCREENING 1965 MAMMOGRAM 1965 PAP SMEAR 1963 ZOSTER VACCINE (1 of 2) 2013 PNEUMOCOCCAL VACCINE 50+ (2 of 2 - PCV) 12/15/2016 12/16/2015 PNEUMOCOCCAL VACCINE (2 of 2 - PCV) 12/15/2016 12/16/2015 Respiratory Syncytial Virus (RSV) Vaccine Pt: or over 60 yrs (1 - Risk 60-74 years 1-dose series) 2023 SCREENING FOR DIABETES 12/24/2023 1, 12/22/2020, 12/22/2020, Additional history exists COVID-19 VACCINE ( season) 2024 INFLUENZA VACCINE (#1) 2024 6, 04/26/2015, 04/22/2015, Additional history exists DEPRESSION SCREENING 07/23/2024 LIPID TESTING 12/22/2025 12/22/2020, 01/21/2018 DTAP/TDAP/TD VACCINES (2 - Td or Tdap) 05/11/2026 05/11/2016 HEPATITIS C SCREENING Completed 07/19/2016 HIV SCREENING Completed 02/22/2018 HEPATITIS B VACCINE Aged Out No longe r eligible based on patient's age to complete this topic HIB VACCINE Aged Out No longer eligi ble based on patient's age to complete this topic HPV VACCINE Aged Out No longer eligi ble based on patient's age to complete this topic MENINGOCOCCAL (Group B) VACCINE Aged Out No longer eligible based on patient's age to complete this topic MENINGOCOCCAL VACCINE Aged Out No elmo ciara eligible based on patient's age to complete this topic Procedures Procedure Name Priority Date/Time Associated Diagnosis Comments GLUCOSE - POINT OF CARE Routine 12/23/2020 4:04 AM CDT LIPID PROFILE STAT 12/22/2020 9:55 PM CDT HIV-1 HIV-2 ANTIGEN/ANTIBODY Routine 02/22/2018 1:00 PM CDT Chronic obstructive pulmonary disease, unspecified COPD type (HCC) Positive SUMMER (antinuclear antibody) Myalgia Schizoaffective disorder, unspecified type (HCC) CKD (chronic kidney disease) stage 3, GFR 30-59 ml/min (HCC) Anxiety Neuropathy Chronic narcotic dependence (HCC) History of drug abuse (HCC) Tobacco abuse Joint swelling HEPATITIS C ANTIBODY Routine 07/19/2016 10:05 AM JETTING MACHINE OPERATOR from Last 3 Months or Most Recently Relevant to Health Maintenance Results * GLUCOSE - POINT OF CARE (12/23/2020 4:04 AM CDT) Glucose WB/POC 111 70 - 115 mg/dL 12/23/2020 4:09 AM T [facility] Specimen Type Arterial/C apillary 12/23/2020 4:09 AM T [facility] Blood BLOOD SPECIMEN / Unknown 12/23/2020 4:04 AM CDT 12/23/2020 4:09 AM CDT Sung Ledezma MD LAB - POINT OF CARE ORDERABLES Performing Organization Address [facility]/ZIP Co de Phone Number [address] [address], [facility] [phone] * (ABNORMAL) LIPID PROFILE (12/22/2020 9:55 PM CDT) Cholesterol Total 225(H) <200 mg/dL 12/22/2020 10:37 PM [facility] HDL 31(L) >40 mg/dL 12/22/2020 10:37 PM [facility] Comment: ATP III Classification of HDL Cholesterol: <40 mg/dL: Considered a major risk factor. >60 mg/dL: Considered a negative risk factor. LDL Calculated 120(H) <100 mg/dL 12/22/2020 10:37 PM [facility] Comment: ATP III Classification of LDL Cholesterol: <100 mg/dL: Optimal 100 - 129 mg/dL: Near Optimal/Above Optimal 130 - 159 mg/dL: Borderline High 160 - 189 mg/dL: High >190 mg/dL: Very High Triglycerides 371(H) <150 mg/dL 12/22/2020 10:37 PM [facility] Comment: ATP III Classification of Triglycerides: <150 mg/dL: Normal 150 - 199 mg/dL: Borderline High 200 - 400 mg/dL: High >500 mg/dL: Very High Blood BLOOD SPECIMEN / Unknown Venipuncture / Unknown 12/22/2020 9:55 PM CDT 12/22/2020 10:23 PM CDT Sima Aguirre MD LAB - CHEMISTRY ORDPedro MARTINEZ [facility] [address] [place] [id number] [phone] * HIV-1 HIV-2 ANTIGEN/ANTIBODY (02/22/2018 1:00 PM CDT) Pathologist [facility] HIV Antigen/Antibod y 1 & 2 Non-reacti ve Non-react [place] 02/22/2018 2:34 PM CDT [facility] Comment: Neither HIV-1 p24 Antigen nor HIV-1/HIV-2 Antibodies are detected. Blood BLOOD SPECIMEN / Unknown Lab Venipuncture / Unknown 02/22/2018 1:00 PM CDT 02/22/2018 1:15 PM CDT Eulalia Lema DO LAB - HEMATOLOGY O RDERABLES Performing Organization Address [facility]/ZIP Co de Phone Number [address] [phone] * HEPATITIS C ANTIBODY (07/19/2016 10:05 AM JETTING MACHINE OPERATOR) Pathologist [facility] Hepatitis C Antibody Non-react [place] Non-reac tive [facility] Comment: Hepatitis C Antibody screen indicates no serologic evidence of past or current infection with Hepatitis C Virus. Patients with unexplained liver disease who are immunocompromised or suspected of having acute Hepatitis C infection may benefit from Nucleic Acid Test (MILADIS) for Hepatitis C Viral RNA to confirm Hepatitis C status. Blood specimen (specimen) BLOOD SPECIMEN / Unknown 07/19/2016 10:05 AM JETTING MACHINE OPERATOR 07/19/2016 10:05 AM JETTING MACHINE OPERATOR Leanne Hatfield MD LAB - CHEMISTR Y ORDERABLES Performing Organization Address [facility]/ZIP Co de Phone Number [address] [phone] from Last 3 Months or Most Recently Relevant to Health Maintenance Advance Directives * Full Code (Latest Code Status on File) Date Activated Date Inactivated Comments 12/22/2020 6:40 PM 12/23/2020 1:04 PM * Full Code Date Activated Date Inactivated Comments 09/02/2020 11:16 PM 09/04/2020 2:09 PM Care Teams Gore Maker Relationship Specialty Start Date End Date Dayna Maki MD PCP - General 12/24/20 Dayna Maki MD 12/22/20 Eulalia Lema DO Resident - PCP Internal Medicine 02/15/18
--- OUTSIDE RECORDS SUMMARY | 2024-09-02 10:13 | XMS_ITS | Clinical Summary ---
Author Organization [facility] Address [address] [place] [id number] Phone Care Team Providers Care Deputy Court Clerk Name Role Phone Mj Lee MD Primary Care Provider + Allergies Active Allergy Reactions Criticality Noted Date Comments Aspirin 01/21/2019 Cefuroxime 01/21/2019 Gabapentin 01/21/2019 Ibuprofen 01/21/2019 Iodinated Contrast Media 01/21/2019 Venlafaxine 01/21/2019 Medications Medication Sig Dispensed Refills Start Date End Date Status ALPRAZolam (XANAX) 1 MG tablet Take 1 mg by mouth 1 (one) time each day Active QUEtiapine (SEROquel) 100 MG tablet Take 100 mg by mouth 1 (one) time each day Active senna (Senexon) 8.6 MG tablet Take 2 tablets by mouth every night Active rosuvastatin (CRESTOR) 10 MG tablet Take 10 mg by mouth 1 (one) time each day Active omeprazole (PriLOSEC) [address] capsule Take 40 mg by mouth 1 (one) time each day Active candesartan (ATACAND) 16 MG tablet Take 16 mg by mouth 1 (one) time each day Active cetirizine (ZyrTEC) 10 MG tablet Take 10 mg by mouth 1 (one) time each day Active hydroCHLOROthiazide (HYDRODIURIL) 25 MG tablet Take 25 mg by mouth 1 (one) time each day Active pentoxifylline (TRENtal) 400 MG CR tablet Take 400 mg by mouth 2 (two) times a day Active acetaminophen (TYLENOL) 500 MG tablet Take 500 mg by mouth every 6 (six) hours if needed for mild pain Active Active Problems Problem Noted Date Diagnosed Date H/O: hypertension 01/21/2019 Hyperlipidemia 10/25/2017 Chronic kidney disease, stage 3 (moderate) 04/19 Resolved Problems Problem Noted Date Diagnosed Date Resolved Date Essential (primary) hypertension 10/25/2017 01/21/2019 Edema 04/28/2016 01/21/2019 Immunizations Name Administration Dates Next Due Influenza TIV (IM) 05/15/2013 Family History Medical History Relation Comments Coronary arteriosclerosis Mother Relation Status Comments Mother Social History Tobacco Use Types Packs/Day Years Used Date Smoking Tobacco: Unknown Alcohol Use Standard Drinks/Week Comments Never 0 (1 standard drink = 0.6 oz pur e alcohol) AUDIT-C Answer Date Recorded Frequency of Alcohol Consumption Never 01/21/2019 Average Number of Drinks Not on file 019 Frequency of Binge Drinking Not on file 08/2018 Sex and Gender Information Value Date Recorded Sex Assigned at Not on file Gender Identity Not on file Sexual Orientation Not on file Last Filed Vital Signs Vital Sign Reading Time Taken Comments Blood Pressure 112/76 01/28/2019 1:03 PM CDT Pulse 97 01/28/2019 1:03 PM CDT Temperature - - Respiratory Rate - - Oxygen Saturation - - Inhaled Oxygen Concentration - - Weight 67.6 kg (149 lb) 01/28/2019 1:03 PM CDT Height 162.6 cm (5' 4 ) 01/28/2019 1:03 PM CDT Body Mass Index 25.58 01/28/2019 1:03 PM CDT Plan of Treatment Health Maintenance Due Date Last Done Comments Influenza Vaccine (#1) 2024 04/22/2015, [address] Relationship Specialty Start Date End Date Mj Lee MD [address] [place] [address] PCP - General Family Medicine 02/04/20
--- OUTSIDE RECORDS SUMMARY | 2024-09-02 10:13 | XMS_ITS | Encounter Summary ---
Author Organization [facility] Address [facility] [place] [address] Care Team Providers Care Plug Shaper Hand Name Role Phone Eulalia Lema DO Primary Care Provider [phone] Dayna Maki MD Primary Care Provider Dayna Maki MD Primary Care Provider Mj Lee MD Primary Care Provider [phone] Dayna Maki MD Unavailable Eulalia Lema DO Unavailable [phone] Dayna Maki MD Primary Care Provider Encounter Details Date Type Department Care Team (Late [facility]) Description 03/07/2018 Telephone [facility] General Internal Medicine [address] [address] Eulalia Lema DO [address] [facility] [place] [address] Social History Tobacco Use Types Packs/Day Years Used Date Smoking Tobacco: Every Day Cigarettes 1 37 Smokeless Tobacco: Never Alcohol Use Standard Drinks/Week Comments No 0 (1 standard drink = 0.6 oz pur e alcohol) Sex and Gender Information Value Date Recorded Sex Assigned at Not on file Gender Identity Not on file Sexual Orientation Not on file documented as of this encounter Plan of Treatment Not on file documented as of this encounter Visit Diagnoses Not on filedocumented in this encounter Additional Health Concerns Infection Onset Date Last Indicated Resolved Time COVID-19 Under Investigation 12/22/2020 12/22/2020 12/22/2020 7:58 PM CDT documented as of this encounter Care Teams Plug Shaper Hand Relationship Specialty Start Date End Date Eulalia Lema DO PCP - General 02/18/18 03/20/18 Dayna Maki MD PCP - General 03/21/18 12/21/20 Dayna Maki MD PCP - General Internal Medicine 12/22/20 12/22/20 Mj Lee MD [address] [place] [address] PCP - General Internal Medicine 12/23/20 12/23/20 Dayna Maki MD [address] [place] [address] PCP - General 12/24/20 Dayna Maki MD 12/22/20 Eulalia Lema DO Resident - PCP Internal Medicine 02/15/18 documented as of this encounter
--- OUTSIDE RECORDS SUMMARY | 2024-09-02 10:13 | XMS_ITS ---
Author Organization [facility] Address [address] [place] [address] Care Team Providers Care Pretzel Packer Name Role Phone Mj Lee Primary Care Provider [phone] [phone] REASON FOR VISIT Gum Medications Medication SIG (Take, Route, Fr equency, Duration) Notes Start Date End Date Status GoodSense Nicotine 4 MG 1 piece chew for 30 minutes as needed Mouth/Throat every 1-2 hours for 15 days 08/27/2024 Active Social History Sex Assigned At : Social History Observation Description Sex Assigned At Female Encounters Encounter Location Date Provider Diagnosis [address] [place] [address] 08/27/2024 Mj Lee Plan Of Treatment Medication Medication Name Sig Start Date Stop Date Notes GoodSense Nicotine 4 MG 1 piece chew for 30 minutes as needed Mouth/Throat every 1-2 hours for 15 days 08/27/2024 Progress Notes * Melinda SOSADOB:1965 (59 yo F)Acc No.[id number]:08/27/2024 Patient: Melinda PEDRAZA :1965 A ge:59 Y S ex:Female Address:[facility] [place], [address] * Refills Start GoodSense Nicotine Gum, 4 MG, Mouth/Throat, 120, 1 piece chew for 30 minutes as needed, every 1-2 hours, 15 days, Refills=5 * true * Date: Generated for Juan mg/Ernst/Israelitting on: 0 09/02/2024 10:[address] JUDGE
--- OUTSIDE RECORDS SUMMARY | 2024-09-02 10:13 | XMS_ITS | Continuity of Care Document ---
Author Organization [facility] Address [address] [facility] [place] [address] Phone Care Team Providers Care Curriculum Writer Name Role Phone Carloz Land MD Unavailable Unavailable Allergies, Adverse Reactions, Alerts Substance Reaction Status Criticality VENLAFAXINE HCL Active No Informati on fish oil Active No Information Iodinated Contrast Media Active No Information ibuprofen Active No Information acetaminophen Active No Information iodine Active No Information Medications Medication Instructions Dosage Effective Dates (start - stop) Status Comments senna 8.6 mg tablet take 2 tablet by oral route every day as needed for constipation - Active hydrochlorothiazide 25 mg tablet take 1 tablet by oral route every day 25 MG - Active ProAir HFA 90 mcg/actuation aerosol inhaler inhale 2 puff by inhalation route every 4 - 6 hours as needed as needed - Active PRN for sob cyclobenzaprine 10 mg tablet take 1 tablet by oral route 2 times every day as needed 10 MG - Active PRN for pain, avoid driving or operate machines Vistaril 50 mg capsule take 1 capsule by oral route 4 times every day as needed - Active Zyrtec 10 mg capsule take one Po daily - Active Procedures Procedure Date OFFICE/OUTPATIENT VISIT, EST OFFICE/OUTPATIENT VISIT, EST OFFICE/OUTPATIENT VISIT, EST PREV VISIT, NEW, AGE 40-64 OFFICE/OUTPATIENT VISIT, NEW Advance Directives Directive Yes / No Effective Date File Name No Information Encounters Encounter Description Practice Location Reason(s) For Visit Diagnoses Date Provider Providers Copied on Encounter [facility], [address], [place], [place], [id number], [place] tel:[phone] [facility] No Information 8 Emery Carty. [address], [address], [place], [place], [address] , [place]. tel:[phone] OFFICE/OUTPA TIENT VISIT, EST [facility], [address], [place], [place], [id number], tel:[phone] [facility] COPD1 (chief complaint) foot pain1 (chief complaint) constipati on (chief complaint) Pain in unspecified footEmphysemaNeurop athyConstipationGen eralized Anxiety Disorder 8 Emery Edwards [address], [address], [place], [place], [address] , [place]. tel:[phone] Referring Provider: Alesha Dickson [facility] [address], [place], [place], [id number]. tel:[phone] OFFICE/OUTPA TIENT VISIT, EST [facility], [address], [place], [place], [id number], [place] tel:[phone] [facility] sick1 (chief complaint) COPD1 (chief complaint) constipati on1 (chief complaint) EmphysemaConstipati onEssential (primary) hypertensionPneumon ia 8 Emery Edwards [address], [place], [place], [address] , [place]. tel:[phone] Referring Provider: Alesha Dickson [address], [place], [place], [address]. tel:[phone] OFFICE/OUTPA TIENT VISIT, EST [facility], [address], [place], [place], [address], [place] tel:[phone] [facility] foot pain1 (chief complaint) lumbago1 (chief complaint) weight loss1 (chief complaint) NeuropathyPain in unspecified lower legConstipationAbno rmal weight loss 8 Emery Edwards [address] [facility] [place], [place], [address] , [place]. tel:[phone] Referring Provider: Carloz Land, Alesha [facility] [place], [place], [address]. tel:[phone] PREV VISIT, NEW, AGE 40-64 [facility], [address], [place], [place], [address], [place] tel:[phone] [facility] Medicine PHysical (chief complaint) Encounter for general adult medical exam w abnormal findingsEssential (primary) hypertensionNeuropa thyEmphysemaAbnorma l weight loss 8 Emery Carty. [address] [place], [place], [address] , [place]. tel:[phone] Referring Provider: Carloz Land, Alesha [place], [place], [address]. tel:[phone] Family History Family Member Type Diagnosis Age At Onset Mother Problem (finding) Renal disease Mother Problem (finding) Coronary artery disease 56 Brother Problem (finding) murdered Mother Problem (finding) Diabetes mellitus Sister Problem (finding) Alive and well Father Problem (finding) colon [place] Payers Payer name Insurance type Covered republican ID Authoriza tion(s) No Information Social History Type Description Quantity Date Captured Comments Sex Female Smoking Status No Information Chief Complaint And Reason For Visit No Information Plan Of Treatment Date Type Action Status Goal Tobacco cessation counseling completed Referral Ordered: Cardiology (related to Pain in unspecified foot) ordered Referral Ordered: Pulmonology (related to Emphysema) ordered Referral Ordered: Referrals: Pulmonology. Evaluate and treat ordered Referral Ordered: Referrals: Cardiology. Evaluate and treat ordered Referral Ordered: DAKOTA DEJESUS -Podiatric Medicine & Surgery Service Providers : Dye House Supervisor (related to Pain in unspecified lower leg) ordered Referral Ordered: ANKLE XRAY, 3+ VIEWS ordered Referral Ordered: US ARTERIAL DOPPLER ordered Referral Referred To: DAKOTA DEJESUS [address] [place] [address],[address] [place], [place], [phone] Ordered: Referrals: Podiatric Medicine & Surgery Service Providers : Dye House Supervisor. DAKOTA DEJESUS. Evaluate and treat ordered Referral Ordered: SENSE NERVE CONDUCTION TEST ordered Referral Ordered: Gastroenterology (related to Encounter for general adult medical exam w abnormal findings) ordered Referral Ordered: Referrals: Gastroenterology. Evaluate and treat ordered Referral Ordered: CT THORAX W/O DYE ordered Referral Ordered: MAMMOGRAM, SCREENING ordered History Of Present Illness Encounter Date Complaint History Of Prese nt Illness COPD1 Pt uses ventolin 1-2 per day Pt does have COPD with abnormal lung CT. Pt is s/p abx. pt denies any acute sob or coughing or any chest pain constipation Additional infor mation: Pt has chronic constipation Pt takes senna daily. Pt told me she does NOT want to see Dr matute for colonoscopy. . Pt denies any blood in stool. foot pain1 Pt has bilateral foot/ankle pain. Foot doctor told her to see vascular specialist per patient. She has some heel spur bilaterally, Pt has ? numbness and pain both ankle and foot area. Her arterial doppler is normal recently. constipation1 Pt has chronic c onstipation. Pt has dewayne with GI in 2 weeks. Pt needs senna refilled. COPD1 Pt has COPD. pt uses proair daily. pt denies any worsening sob Pt had LDCT done which showed ground glass appearance, which is new since her CT scan 2008. Pt denies any acute sob sick1 Pt c/o productiv e coughing with purulent drainage, sinus congestion, ear pain, running nose with sinus congestion for 10 days. Pt does have worsening sob. Pt denies any chest pain. pt lost her voices recently. Pt coughs worse when she lies down Pt had subjective fever last week but currently no fever. weight loss1 Pt has lost over 50 pounds since year Pt denies any GERD Pt denies any appetite loss Pt does have chronic constipation. Pt refused appointment with GI? lumbago1 pt has chronic l ow back pain and she has sciatica. Pt has chronic leg numbness. Pt has very confusing history. Pt was seen neurology but not anymore pt told me neurology did not help her neuropathy and pain. Pt is off neurontin and norco now. Pt wants higher dose of flexeril. Pt c/o sciatica to left hip area. Pt denies any loss of bladder control foot pain1 Pt has chronic b ilateral foot and ankle pain for over one year ,Pt has neuropathy with burning pain chronically but she has a different type of pain with sharp in nature both ankle and foot Pt states that the pain is less with weight bearing Pt denies any calf pain Pt states that she tried neurontin and opioid for long time but none worked Pt denies any calf pain Pt denies any recent travel or bedrest PHysical Pt needs annual physical. Pt is a very poor historian. pt states that she lost all her muscle recently and she has hard time getting out of bed due to overall muscle weakness. Pt c/o low back pain with radiating to left buttock. Pt denies any loss of bladder control. Pt has neuropathy both legs and all over. he was seeing neurology (Dr. Alejandro) who was given her norco for migraine, back and pain all over and has not worked so she has marky off norco and she also failed neurontin. Pt uses Proair daily for sob. Pt also has chronic anxiety and she does not have any depression. Pt takes vistaril PRn per psychiatrist. Pt denies any suicidal or homicidal thought Pt takes hctz for HTn. Pt told me she was seeing [facility] but she does not like [facility] so she came to see me pt also was told she has lupus but light coil winder told her she does not have lupus.. Pt denies any rash or polyarthralgia. Pt also lost 25 pounds during last 2 years .Pt denies any appetite loss or nausea, vomiting, diarrhea, etc Instructions Date Instruction Additional Infor mation Quit smoking Related to Pain in unspecified foot Quit smoking Related to Emphy sema Quit smoking Related to Neuro diya Increase physical activity Relat ed to Encounter for general adult medical exam w abnormal findings Assessments Type Assessment Date No Information
--- OUTSIDE RECORDS SUMMARY | 2024-09-02 10:13 | XMS_ITS | Referral Summary ---
Author Organization [facility] Address [address] [facility] [place] [address] Care Team Providers Care Grizzly Worker Name Role Phone Dayna Maki MD Unavailable [phone] Eulalia Lema DO Unavailable [phone] Dayna Maki MD Primary Care Provider Source Comments [facility],non-owned Affiliates and Associated Physician Practices is amultiple site organization consisting of ambulatory clinics and hospital sitesin [place], [place], [place] and [place]. This disclosure is being madepursuant to the Care Everywhere program and may not contain all information available regarding this patient. Last updated 18.[facility] Allergies Active Allergy Reactions Criticality Noted Date [...] Refused) PNEUMOCOCCAL PPSV23 12/16/2015 TDAP (7yrs+) 05/11/2016 Social History Tobacco Use Types Packs/Day Years [...] Mass Index 28.38 12/22/2020 9:30 PM CDT Functional Status Functional Status Response Date of Assess ment Is person deaf or have bernice us hearing difficulty? No 12/22/2020 Is person blind or have seri ous difficulty seeing? 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 Yes- cant climb many stairs 12/22/2020 Does person have difficulty dressing/bathing? No 12/22/2020 Does person have difficulty doing errands alone? Yes- with some 12/22/2020 Cognitive Status Response Date of Assessm ent Does person have difficulty concentrating/remembering/making decisions? No 12/22/2020 Plan of Treatment Not on file Procedures Procedure Name Priority Date/Time Associated Diagnosis [...] HEPATITIS C ANTIBODY Routine 07/19/2016 10:05 AM ASPHALT BLENDER from Last 3 Months or Most Recently Relevant to Health Maintenance Results * GLUCOSE - POINT OF CARE (12/23/2020 4:04 AM CDT) Glucose WB/POC 111 70 - 115 mg/dL 12/23/2020 4:09 AM CDT [facility] Specimen Type Arterial/C apillary 12/23/2020 4:09 AM CDT [facility] Blood BLOOD SPECIMEN / Unknown 12/23/2020 4:04 AM CDT 12/23/2020 4:09 AM CDT Sung Ledezma MD LAB - POINT OF CARE ORDERABLES Performing Organization Address City/State/[facility] Co de Phone Number [facility] [address] [place] [address], [facility] [phone] * (ABNORMAL) LIPID PROFILE (12/22/2020 9:55 PM CDT) Cholesterol Total 225(H) <200 mg/dL 12/22/2020 10:37 PM CDT [facility] HDL 31(L) >40 mg/dL 12/22/2020 10:37 PM CDT [facility] Comment: ATP III Classification of HDL Cholesterol: <40 mg/dL: Considered a major risk factor. >60 mg/dL: Considered a negative risk factor. LDL Calculated 120(H) <100 mg/dL 12/22/2020 10:37 PM CDT [facility] Comment: ATP III Classification of LDL Cholesterol: <100 mg/dL: Optimal 100 - 129 mg/dL: Near Optimal/Above Optimal 130 - 159 mg/dL: Borderline High 160 - 189 mg/dL: High >190 mg/dL: Very High Triglycerides 371(H) <150 mg/dL 12/22/2020 10:37 PM CDT [facility] Comment: ATP III Classification of Triglycerides: <150 mg/dL: Normal 150 - 199 mg/dL: Borderline High 200 - 400 mg/dL: High >500 mg/dL: Very High Blood BLOOD SPECIMEN / Unknown Venipuncture / Unknown 12/22/2020 9:55 PM CDT 12/22/2020 10:23 PM CDT Sima Aguirre MD LAB - CHEMISTRY MARU MARTINEZ Performing Organization Address City/[facility]/ZIP Co de Phone Number [facility] [address] [place] [address], [facility] [phone] * HIV-1 HIV-2 ANTIGEN/ANTIBODY (02/22/2018 1:00 PM CDT) HIV Antigen/Antibod y 1 & 2 Non-reacti ve Non-react austin 02/22/2018 2:34 PM CDT [facility] Comment: Neither HIV-1 p24 Antigen nor HIV-1/HIV-2 Antibodies are detected. Blood BLOOD SPECIMEN / Unknown Lab Venipuncture / Unknown 02/22/2018 1:00 PM CDT 02/22/2018 1:15 PM CDT Eulalia Lema DO LAB - HEMATOLOGY O RDERABLES Performing Organization Address [facility]/ZIP Co de Phone Number [facility] [address] [place] [address], [facility] [phone] * HEPATITIS C ANTIBODY (07/19/2016 10:05 AM ASPHALT BLENDER) Hepatitis C Antibody Non-react austin Non-reac tive [facility] Comment: Hepatitis C Antibody screen indicates no serologic evidence of past or current infection with Hepatitis C Virus. Patients with unexplained liver disease who are immunocompromised or suspected of having acute Hepatitis C infection may benefit from Nucleic Acid Test (MILADIS) for Hepatitis C Viral RNA to confirm Hepatitis C status. Blood specimen (specimen) BLOOD SPECIMEN / Unknown 07/19/2016 10:05 AM ASPHALT BLENDER 07/19/2016 10:05 AM ASPHALT BLENDER Leanne Hatfield MD LAB - CHEMISTR Y ORDERABLES [address] [phone] from Last 3 Months or Most Recently Relevant to Health Maintenance Advance Directives * Full Code (Latest Code Status on File) Date Activated Date Inactivated Comments 12/22/2020 6:40 PM 12/23/2020 1:04 PM * Full Code Date Activated Date Inactivated Comments 09/02/2020 11:16 PM 09/04/2020 2:09 PM Care Teams Grizzly Worker Relationship Specialty Start Date End Date Dayna Maki MD PCP - General 12/24/20 Dayna Maki MD 12/22/20 Eulalia Lema DO Resident - PCP Internal Medicine 02/15/18
--- OUTSIDE RECORDS SUMMARY | 2024-09-02 10:14 | XMS_ITS ---
Author Organization [facility] Address [address] [place] [address] Care Team Providers Care Cash Van Salesperson Name Role Phone Mj Lee Primary Care Provider Nicole Lainey Unavailable [phone] REASON FOR VISIT order test Social History Sex Assigned At : Social History Observation Description Sex Assigned At Female Encounters Encounter Location Date Provider Diagnosis [address] [place] [address] 09/01/2024 Mj Lee Plan Of Treatment No Information Progress Notes * Melinda SOSADOB:1965 (59 yo F)Acc No.[id number]:09/01/2024 UNLOCKED PROGRESS NOTE Patient: Melinda PEDRAZA :1965 A ge:59 Y S ex:Female Address:[facility] [place], [address] * * Date:
--- OUTSIDE RECORDS SUMMARY | 2024-09-02 10:14 | XMS_ITS | Clinical Summary ---
Author Organization [facility] Address [address] [place] [address] Phone Care Team Providers Care Spare Fixer Name Role Phone JOSE HOLLINGSWORTH Unavailable [phone] SAMSON JANG MD Unavailable [phone] Reason for Visit and Chief Complaint POST PROCEDURE PHONE CALL Plan of Treatment No Plan of Treatment Recorded Assessments Includes: Assessments from this encounter No Assessments Recorded Medical Equipment - Implanted Devices Includes: Current Devices No Medical Equipment Recorded Medications Includes: Medications discussed during this encounter and other current Medications Current Medications (continue as prescribed) Lidocaine 5% External Patch 09/20/2023 Provider: JOSE GOODEN Diagnosis: Spinal stenosis, cervical region as directed apply patch to a ffected area for 12 hours and remove for 12 hours Last Documented On 3:21PM By JOSE CADENA ; [facility] Varenicline Tartrate 1 MG Oral Tablet 06/20/2023 Pro vider: SAMSON JANG MD Diagnosis: Last Documented On 06/21/2023 9:05AM By Snehal CID ; [facility] Ketorolac Tromethamine 10 MG Oral Tablet 06/08/2023 Provider: SAMSON JANG MD Diagnosis: Last Documented On 06/21/2023 9:06AM By Snehal CID ; [facility] Latanoprost 0.005% Ophthalmic Solution 06/05/2023 Pr ovider: Diagnosis: Last Documented On 06/21/2023 9:05AM By Snehal CID ; [facility] QUEtiapine Fumarate 200 MG Oral Tablet 01/10/2023 Pr ovider: Diagnosis: AT BEDTIME Last Documented On 3 10:08AM By Snehal CID ; [facility] Melatonin 5 MG Oral Capsule 12/20/2022 Provider: Diagnosis: Last Documented On 3 11:26AM By Snehal CID ; [facility] Banophen 25 MG Oral Capsule 12/19/2022 Provider: SAMSON JANG MD Diagnosis: Last Documented On 3 11:22AM By Snehal CID ; [facility] Pregabalin 150 MG Oral Capsule 12/19/2022 Provider: SAMSON JANG MD Diagnosis: Last Documented On 3 11:23AM By Snehal CID ; [facility] QUEtiapine Fumarate 100 MG Oral Tablet 12/05/2022 Pr ovider: Diagnosis: Last Documented On 3 11:24AM By Snehal CID ; [facility] Ventolin HFA 108 (90 Base) M CG/ACT Inhalation Aerosol Solution 11/30/2022 Provider: SAMSON JANG MD Diagnosis: Last Documented On 3 11:25AM By Snehal CID ; [facility] hydroCHLOROthiazide 12.5 MG Oral Tablet 11/28/2022 P rovider: SAMSON JANG MD Diagnosis: Last Documented On 3 11:22AM By Snehal CID ; [facility] Dicyclomine HCl 20 MG Oral Tablet 11/27/2022 Provide r: SAMSON JANG MD Diagnosis: Last Documented On 3 11:23AM By Snehal CID ; [facility] Methocarbamol 750 MG Oral Tablet 11/24/2022 Provider : SAMSON JANG MD Diagnosis: Last Documented On 3 11:23AM By Snehal CID ; [facility] Atorvastatin Calcium 40 MG Oral Tablet 11/24/2022 Pr ovider: SAMSON JANG MD Diagnosis: Last Documented On 3 11:23AM By Snehal CID ; [facility] Candesartan Cilexetil 32 MG Oral Tablet 11/20/2022 Nataly gross: SAMSON JANG MD Diagnosis: Last Documented On 3 11:22AM By Snehal CID ; [facility] Medications Administered Includes: Administered Medications from this encounter No Administered Medications Recorded Results Includes: Results discussed during this encounter No Results Recorded For Specified Dates History of Present Illness Includes: History of Present Illness from this encounter No History of Present Illness Recorded Social History Description Last Updated Current smoker 12/20/2022 Last Documented On 3 12:42PM ; [facility] Difficulty walking 12/20/2022 Last Documented On 3 12:42PM ; [facility] Smoking packs of cigarettes per day 1 Last Documented On 3 12:42PM ; [facility] Smoking Status Unknown Medical History Includes: Medical History addressed during this encounter No Medical History Recorded Family History Includes: Family History addressed during this encounter No Family History Recorded Review of Systems Includes: Review of Systems from this encounter No Review of Systems Recorded Mental Status Includes: Mental Status from this encounter No Mental Status Recorded Functional Status Includes: Functional Status from this encounter No Functional Status Recorded Physical Exam Includes: Physical Exam from this encounter No Physical Exam Recorded Allergies Includes: Active Allergies Substance Type Reaction Onset Date Resolved Date Statu s Shellfish Allergy 12/20/2022 Active Last Documented On 4 2:44PM ; [facility] NSAIDs Allergy 12/20/2022 Active Last Documented On 4 2:44PM ; [facility] Meloxicam Allergy 12/20/2022 Active Last Documented On 4 2:44PM ; [facility] Effexor XR Allergy 12/20/2022 Active Last Documented On 4 2:44PM ; [facility] Contrast Dye Allergy 12/20/2022 Active Last Documented On 4 2:44PM ; [facility] Note: THROAT CLOSES AND STOPS BREATHING Aspirin Allergy 12/20/2022 Active Last Documented On 4 2:44PM ; [facility] Encounters Encounter Provider Location Date Check-In Time Check-Out Time Diagnosis POST PROCEDURE PHONE CALL JOSE CADENA 03/23/2023 12:42PM 11:59PM Insurance Includes: Active Insurance Policies Plan Name Member ID Group # Subscriber Relationship Effect austin Dates 1 - [facility] [id number] UZMA SOSA Se lf Clinical Notes Includes: Clinical Notes from this encounter * Progress note Date Encounter Last Documented by 03/23/2023 POST PROCEDURE PHONE CALL Last d ocumented on 03/23/2023; 12:44 PM, Mari Retana RN; [facility] Top of Document Post-Procedural Patient Screening Questionnaire Date of Procedure: 03/21/23 Procedure: leftward C6-7 ILESI 1. How have you felt since your last procedure? Doing well, has had some improvement. Improved Same Worse 2. Pain level prior to procedure? 01/29 3. Pain level currently? 09/01 4. How long after procedure did symptoms begin? Same pain but worse New Symptoms ? If new, describe: Improving Staying the same Getting worse 5. Any post procedure issues with injection? denies Heat Swelling Soreness Redness Streaking Injection site pain Bleeding Discharge/Drainage 6. Are you experiencing new numbness in the groin or saddle area? Yes No 7.New loss of bowel or bladder control? Yes No 8. Are you having any of the following symptoms? denies Fever Chills Night Sweats Rigors/Shaking Chills Headaches Neck Stiffness Sensitivity to sound New muscle pain/Stiffness Weakness Nausea Vomiting Diarrhea Dizziness Rash Flushing Mood Irritability Blood Pressure changes Blood sugar changes call completed by Shagufta Retana RN Current Medication - ALPRAZolam 0.5 MG Oral Tablet as directed 1 po 1 hour prior to procedure, 1 po 30 minutes prior to procedure, 1 days, 0 refills - Atorvastatin Calcium 40 MG Oral Tablet [...] as needed 5 days, 0 refills - Lidocaine 5% External Patch as directed apply patch to affected area for 12 hours and remove for 12 hours, 30 days, 2 refills - Methocarbamol 750 MG Oral Tablet One tablet three times a day 30 days, 0 refills - Montelukast Sodium 10 MG Oral Tablet One tablet daily 30 days, 0 refills - predniSONE 50 MG Oral Tablet take 1 tablet by mouth 13 hours prior to procedure, 7 hours prior to procedure and 1 hour prior to procedure, 3 days, 0 refills - Pregabalin 150 MG Oral Capsule One tablet twice a day 30 days, 0 refills - QUEtiapine Fumarate 100 MG Oral Tablet One tablet at bed time 30 days, 0 refills - QUEtiapine Fumarate 200 MG Oral Tablet 2 once a day AT BEDTIME, 30 days, 0 refills - Topiramate 50 MG Oral Tablet One tablet daily 30 days, 0 refills - Ventolin HFA 108 (90 Base) MCG/ACT Inhalation Aerosol Solution as directed 25 days, 0 refills Social History Difficulty walking. Tobacco use: Cigarette smoking smoking packs of cigarettes per day 1. Allergies - Aspirin - Contrast Dye - Effexor XR - Meloxicam - NSAIDs - Shellfish Care Team - ADALBERTO WORKMAN- - Pain Management - SAMSON JANG MD Health Reminders - Assess Tobacco Use satisfied 03/23/2023.
--- OUTSIDE RECORDS SUMMARY | 2024-09-02 10:14 | XMS_ITS | Clinical Summary ---
Author Organization [facility] [address] [facility] [address] Address [address] [place] [address] Phone Care Team Providers Care Technical Designer Name Role Phone Mj Lee MD Primary Care Provider Allergies Active Allergy Reactions Criticality Noted Date Comments Aspirin Anaphylaxis High 03/01/2015 Anaphylaxis Meloxicam Anaphylaxis High 03/01/2018 Evans-3 Fatty Acids Anaphylaxis,Hives High 8 Other Anaphylaxis High 11/06/2017 Venlafaxine Other (See comments) High 03/01/2018 Not listed in old EPIC Not listed in old EPIC Medications hydroCHLOROthiaz mora (HYDRODIURIL) 25 mg tablet 12.5 mg daily Active acetaminophen (TYLENOL) 500 mg tablet Take 1,000 mg by mouth every 6 (six) hours as needed Active dicyclomine (BENTYL) 20 mg tablet 01/31/2021 Active Banophen 25 mg capsule 01/25/2021 Active ketorolac (TORADOL) 10 mg tablet 02/02/2021 Active methocarbamoL (ROBAXIN) 500 mg tablet 01/25/2021 Active pregabalin (LYRICA) 150 mg capsule 01/31/2021 Active sertraline (ZOLOFT) 25 mg tablet 02/03/2021 Active Active Problems Problem Noted Date Diagnosed Date Paresthesia of skin 02/10/2021 Surgical History Surgery Date Site/Laterality Comments CERVICAL FUSION CHOLECYSTECTOMY APPENDECTOMY HYSTERECTOMY Social History Tobacco Use Types Packs/Day Years Used Date Smoking Tobacco: Every Day Cigarettes Personal Safety Answer Date Recorded Getting School Help Needed Not on file 09/16 Comments Unknown Sex and Gender Information Value Date Recorded Sex Assigned at Not on file Legal Sex Female 10:09 PM CHANGE CONSULTANT Gender Identity Not on file Sexual Orientation Not on file Obstetrics History Last Filed Vital Signs Vital Sign Reading Time Taken Comments Blood Pressure 99/73 02/09/2021 2:04 PM CDT Pulse 97 02/09/2021 2:04 PM CDT Temperature 36.8 C (98.2 F) 10/19/2012 4:40 PM CDT Respiratory Rate - - Oxygen Saturation 98% 10/18/2016 10:15 AM CDT Inhaled Oxygen Concentration - - Weight 77.3 kg (170 lb 6.4 oz) 02/09/2021 2:04 P M CDT Height 162.6 cm (5' 4 ) 02/09/2021 2:04 PM CDT Body Mass Index 29.25 02/09/2021 2:04 PM CDT Plan of Treatment Not on file Insurance [facility] Care Teams Technical Designer Relationship Specialty Start Date End Date Mj Lee MD [address] [facility] [place] [id number] PCP - General Internal Medicine 12/17/20
--- OUTSIDE RECORDS SUMMARY | 2024-09-02 10:14 | XMS_ITS | Clinical Summary ---
Author Organization [facility] Address [address] [place] [address] Phone Care Team Providers Care Rim Turning Finisher Name Role Phone Unavailable Primary Care Provider Unavailabl e Allergies Active Allergy Reactions Criticality Noted Date Comments Adhesive Tape Rash,Other (see Comments) High 03/16/2017 Pulls off her skin Aspirin Anaphylaxis,Unknown High 03/16/2017 Iodinated Contrast Media Anaphylaxis,Unknown High 03/16/2017 [place]-3 Fatty Acids Anaphylaxis High 11/06/2017 Meloxicam-Liniment Anaphylaxis High 11/06/2017 Nsaids Anaphylaxis High 11/06/2017 Other Nausea 11/06/2017 Effexor Shellfish Allergy Anaphylaxis,Unknown High 7 Venlafaxine Other (see Comments) High 03/01/2018 Not listed in old EPIC Medications zolpidem (AMBIEN CR) 12.5 MG Tablet Controlled Release 05/05/20 19 Active clopidogrel (PLAVIX) 75 MG Tablet 04/28/20 19 Active OLANZapine (ZYPREXA) 10 MG Tablet 05/13/20 19 Active topiramate (TOPAMAX) 25 MG Tablet 02/11/20 19 Active nitroGLYCERIN (NITRODUR) 0.4 MG/HR PATCH 24 HR nitroglycerin 0.4 mg/hr transdermal 24 hour patch Active cilostazol (PLETAL) 50 MG Tablet cilostazol 50 mg tablet Active amLODIPine (NORVASC) 10 MG TabletIndication s:Essential (primary) hypertension Take 1 Tab by mouth daily. 30 Tab 2 05/21/20 19 Active benazepril (LOTENSIN) 10 MG TabletIndication s:Essential (primary) hypertension Take 1 Tab by mouth daily. 30 Tab 2 05/21/20 19 Active cyclobenzaprine (FLEXERIL) 10 MG TabletIndication s:Traumatic tear of left rotator cuff, unspecified tear extent, subsequent encounter Take 1 Tab by mouth 3 times daily as needed for Muscle spasms. 45 Tab 05/21/20 19 Active HYDROcodone-acet aminophen (NORCO) 10-325 MG TabletIndication s:Traumatic tear of left rotator cuff, unspecified tear extent, subsequent encounter Take 1 Tab by mouth every 8 hours as needed for Moderate or more severe pain. 30 Tab 05/21/20 19 Active Sennosides-Docus ate Sodium (SENNA-DOCUSATE SODIUM) 8.6-50 MG TabletIndication s:Traumatic tear of left rotator cuff, unspecified tear extent, subsequent encounter Take 1 Tab by mouth daily. 30 Tab 11 05/21/20 19 Active Active Problems Problem Noted Date Diagnosed Date Essential (primary) hypertension 05/21/2019 Generalized anxiety disorder 05/21/2019 Peripheral vascular disease 03/28/2019 Degeneration of thoracic intervertebral disc 04/2019 Edentulous 07/29/2018 Tardive dyskinesia 07/29/2018 Chronic narcotic dependence 02/14/2018 History of drug abuse 02/14/2018 Tobacco abuse 02/14/2018 Anxiety 01/21/2018 Neuropathy 01/21/2018 Schizoaffective disorder 01/21/2018 Hyperlipidemia 10/25/2017 Chronic renal insufficiency, stage III (moderate ) 04/19/2017 Chronic obstructive pulmonary disease 07/11/2016 Myalgia 07/11/2016 Insomnia 07/11/2016 Positive SUMMER (antinuclear antibody) 07/11/2016 Immunizations Immunization Administration Dates Next Due Influenza Vaccine greater than 3 yrs 04/22/2015, 05/15/2013 Influenza, Injectable, Quadrivalent 04/06/2016,1 Influenza, Seasonal, Injectable, Undefined 04/22 PNEUMONIA ADULT IM PPSV23 12/16/2015 Pneumococcal Vaccine Adult - 23 Valent 6 TDAP Vaccine 05/11/2016 Family History Medical History Relation Name Comments No Known Problems Brother Cancer Father Diabetes Maternal Grandmother Heart Disease Maternal Grandmother Heart Surgery Maternal Grandmother Hypertension Maternal Grandmother Dementia Mother Diabetes Mother Heart Disease Mother Heart Surgery Mother Hypertension Mother No Known Problems Sister 1 No Known Problems Sister 2 Relation Name Status Comments Brother Alive Father Maternal Grandfather Maternal Grandmother Mother Alive Paternal Grandfather Sister 1 Alive Sister 2 Alive Social History Tobacco Use Types Packs/Day Years Used Date Smoking Tobacco: Every Day Cigarettes Smokeless Tobacco: Never Tobacco Cessation:Ready to Q uit: No; Counseling Given: Yes Alcohol Use Standard Drinks/Week Comments No 0 (1 standard drink = 0.6 oz pur e alcohol) PHQ-2 Answer Date Recorded PHQ-2 Score 0 05/21/2019 Sexually Active Control Partners Comments Never Comments No Sex and Gender Information Value Date Recorded Sex Assigned at Not on file Legal Sex Female 11:35 PM CDT Gender Identity Not on file Sexual Orientation Not on file Occupation Industry Job Start Date Job End Date disabled Not on file Not on file Not on file Last Filed Vital Signs Vital Sign Reading Time Taken Comments Blood Pressure 142/80 05/21/2019 2:49 PM CDT Pulse 96 05/21/2019 2:49 PM CDT Temperature 37.5 C (99.5 F) 05/21/2019 2:49 PM CDT Respiratory Rate 16 05/21/2019 2:49 PM CDT Oxygen Saturation 97% 05/21/2019 2:49 PM CDT Inhaled Oxygen Concentration - - Weight 77.9 kg (171 lb 11.2 oz) 05/21/2019 2:49 PM CDT Height 165.1 cm (5' 5 ) 05/21/2019 2:49 PM CDT Body Mass Index 28.57 05/21/2019 2:49 PM CDT Plan of Treatment Health Maintenance Due Date Last Done Comments Colonoscopy 01/04/2008 Colorectal Cancer Screening 01/04/2008 Cologuard 2013 Immunochemical Fecal Occult Blood 2013 Mammogram 2013 Zoster Immunization (1 of 2) 2013 Pneumococcal Immunization (50+ years) (3 of 3 - PCV) 12/15/2016 12/16/2015, 12/16/2015 Respiratory Syncytial Virus (RSV) Immunization (Adult) (1 - Risk 60-74 years 1-dose series) 2023 Influenza Immunization (#1) 03/23/202403/23, 04/26/2015, 04/22/2015, Additional history exists SARS-COV-2 Immunization ( season) 2024 07/12/2021, 01/02/2021, 12/04/2020 Td Immunization Every 10 Years (Adults With 1 Tdap) 05/11/2026 05/11/2016 Pneumococcal Immunization Combined Discontinued 12/16/2015, 12/16/2015 Hepatitis C Virus (HCV) Screening Completed 07/19/2016 Hepatitis B Immunization Aged Out No longer eligible based on patient's age to complete this topic Meningococcal Immunization (ACWY) Aged Out No longer eligible based on patient's age to complete this topic Rotavirus Immunization Aged Out No lo nger eligible based on patient's age to complete this topic Procedures Procedure Name Priority Date/Time Associated Diagnosis Comments HEPATITIS C ANTIBODY Routine 07/19/2016 from Last 3 Months or Most Recently Relevant to Health Maintenance Results * HEPATITIS C ANTIBODY (07/19/2016) Blood specimen (specimen) us Leanne Thompson MD CHEMISTRY ORDERABLES F inal Result from Last 3 Months or Most Recently Relevant to Health Maintenance Insurance [place]ICAID [place]
--- OUTSIDE RECORDS SUMMARY | 2024-09-02 10:14 | XMS_ITS | Encounter Summary ---
Author Organization [facility] Care Team Providers Care Social Media Marketer Name Role Phone No, Physician Primary Care Provider [phone] Mj Lee MD Primary Care Provider [phone] Encounter Details Date Type Department Care Team (Latest Contact Info) Description 09/05/2016 Orders Only [facility]IN[facility] Provider, MD [place] [address] [place] [id number] Social History Tobacco Use Types Packs/Day Years Used Date Smoking Tobacco: Never Assessed Comments Unknown Sex and Gender Information Value Date Recorded Sex Assigned at Not on file Legal Sex Female 10:09 PM ADMIN ASSISTANT Gender Identity Not on file Sexual Orientation Not on file documented as of this encounter Plan of Treatment Not on file documented as of this encounter Procedures Procedure Name Priority Date/Time Associated Diagnosis Comments CARDIOLOGY REPORT 09/05/2016 12: 00 AM ADMIN ASSISTANT documented in this encounter Results * CARDIOLOGY REPORT (09/05/2016 12:00 AM ADMIN ASSISTANT) Anatomical Region Laterality Modality Other Narrative 09/05/2016 12:00 AM ADMIN ASSISTANT Ordered by an unspecified provider. us Historical Provider [facility] KAREN ALANIS Final Result documented in this encounter Visit Diagnoses Not on filedocumented in this encounter Care Teams Social Media Marketer Relationship Specialty Start Date End Date No, Physician PCP - General 06/10/18 12/16/20 Mj Lee MD [address] [place] [address] [place] [address] PCP - General Internal Medicine 12/17/20 documented as of this encounter
--- OUTSIDE RECORDS SUMMARY | 2024-09-02 10:14 | XMS_ITS | Clinical Summary ---
Author Organization [facility] Address [address] [place] [address] Phone Care Team Providers Care Painter Maintenance Name Role Phone TAQUERIA CADENA, JOSE Benson Unavailable [phone] SAMSON JANG MD Unavailable [phone] Reason for Visit and Chief Complaint The Chief Complaint is: C/O NECK PAIN, WAS DUE TO HAVE NECK SURGERY IN AUG 2023 BUT INSURANCE DENIED, WOULD LIKE TO DISCUSS AN INJECTION Plan of Treatment No Plan of Treatment Recorded Assessments Includes: Assessments from this encounter Findings - Cervical spondylosis with radiculopathy [M47.22 - Other spondylosis with radiculopathy, cervical region] - Last Documented On 08/06/2023 1:09PM ; [facility] - Cervical spine stenosis [M48.02 - Spinal stenosis, cervical region] - Last Documented On 08/06/2023 1:09PM ; [facility] - Cervical radiculopathy [M54.12 - Radiculopathy, cervical region] - Last Documented On 08/06/2023 1:09PM ; [facility] - Myalgia and myositis [M79.18 - Myalgia, other site] - Last Documented On 08/06/2023 1:09PM ; [facility] Medical Equipment - Implanted Devices Includes: Current [...] Last Documented On 4 3:21PM By JOSE GLOVER- ; [facility] Varenicline Tartrate 1 MG Oral Tablet 06/20/2023 Pro vider: SAMSON JANG MD Diagnosis: Last Documented On 06/21/2023 9:05AM By Snehal CID ; [facility] Ketorolac Tromethamine 10 MG Oral Tablet 06/08/2023 Provider: SAMSON JANG MD Diagnosis: Last Documented On 06/21/2023 9:06AM By Snehal CID ; [facility] Latanoprost 0.005% Ophthalmic Solution 06/05/2023 Pr ovider: Diagnosis: Last Documented On 06/21/2023 9:05AM By Snehal CID ; [facility] QUEtiapine Fumarate 200 MG Oral Tablet 01/10/2023 Pr ovider: Diagnosis: AT BEDTIME Last Documented On 3 10:08AM By Snehal CID ; [facility] Melatonin 5 MG Oral Capsule 12/20/2022 Provider: Diagnosis: Last Documented On 3 11:26AM By Snehal CID ; [facility] Banophen 25 MG Oral Capsule 12/19/2022 Provider: SAMSON JANG MD Diagnosis: Last Documented On 3 11:22AM By Snehal CID ; [facility] Pregabalin 150 MG Oral Capsule 12/19/2022 Provider: SAMSON JANG MD Diagnosis: Last Documented On 3 11:23AM By Snehal CID ; [facility] QUEtiapine Fumarate 100 MG Oral Tablet 12/05/2022 Pr ovider: Diagnosis: Last Documented On 3 11:24AM By Snehal CID ; [facility] Ventolin HFA 108 (90 Base) M CG/ACT Inhalation Aerosol Solution 11/30/2022 Provider: SAMSON JANG MD Diagnosis: Last Documented On 3 11:25AM By Snehal CID ; [facility] hydroCHLOROthiazide 12.5 MG Oral Tablet 11/28/2022 P rovider: SAMSON JANG MD Diagnosis: Last Documented On 3 11:22AM By Snehal CID ; [facility] Dicyclomine HCl 20 MG Oral Tablet 11/27/2022 Provide r: SAMSON JANG MD Diagnosis: Last Documented On 3 11:23AM By Snehal CID ; [facility] Methocarbamol 750 MG Oral Tablet 11/24/2022 Provider : SAMSON JANG MD Diagnosis: Last Documented On 3 11:23AM By Snehal CID ; [facility] Atorvastatin Calcium 40 MG Oral Tablet 11/24/2022 Pr ovider: SAMSON JANG MD Diagnosis: Last Documented On 3 11:23AM By Snehal CID ; [facility] Candesartan Cilexetil 32 MG Oral Tablet 11/20/2022 P rovider: SAMSON JANG MD Diagnosis: Last Documented On 3 11:22AM By Snehal CID ; [facility] Medications Administered Includes: Administered Medications from this encounter No Administered Medications Recorded Vital Signs Includes: Vital Signs from this encounter Vital Name 08/02/2023 02:39P Blood Pressure Sitting R 120/90 Pulse Rate-Sitting (bpm) 100 Temp-Temporal 96.5 Height (in) 64 Weight (lb) 185 Body Mass Index 31.8 Body Surface Area 1.9 Pain Level 9 Oxygen Saturation (%) 94 Last Documented: On 08/02/2023 2:42PM ; [facility] Results Includes: Results discussed during this encounter [...] Last drug screen appropriate N/A Discussion: Patient presents to office with ongoing neck pain. Pain radiates to the left upper extremity. She was scheduled for surgery in August, but this was denied by insurance at the last minute for some reason. She has a plan to see surgeon with this being reordered. She questions a repeat cervical epidural at this time. However, last injection provided very little benefit. She continues home exercises as tolerated. Recommend she continue current medication regimen and keep follow-up with surgeon. I would not recommend a repeat epidural at this time. She verbalized understanding. Past note: Patient returns in follow-up to [...] aspect of daily living. She has a mobile home set up person help with cooking and self care. She [...] Updated Former smoker 08/02/2023 Last Documented On 4 1:09PM ; [facility] No consumption of alcohol 08/02/2023 Last Documented On 4 1:09PM ; [facility] Not using drugs 08/02/2023 Last Documented On 4 1:09PM ; [facility] Difficulty walking 12/20/2022 Last Documented On 4 2:38PM ; [facility] Smoking packs of cigarettes per day 1 Last Documented On 4 2:38PM ; [facility] Smoking Status Unknown Procedures and Surgical History Includes: Procedures from this encounter Procedures Code Diagnosis Performing Provider Service L ocation Service Date surgery Last Documented On 4 2:38PM ; [facility] administered injection of tr igger point(s), three [...] vital signs. ~ ~ Last Documented On 4 2:38PM ; [facility] use of tobacco assessment performed 1000F Last Documented On 4 2:45PM ; [facility] standardized depression screening: negative for symptoms 3351F Last Documented On 4 2:38PM ; [facility] review of medications documented 1160F Last Documented On 4 2:45PM ; [facility] screening for adult depression: impressi on and score 0 Last Documented On 4 2:38PM ; [facility] Clinical summary provided to patient ~ Patient understands and agrees with treatment plan. Questions answered Last Documented On 4 2:38PM ; [facility] SOAPP-R: total score 3 Last Documented On 4 2:38PM ; [facility] Surgical History Last Updated No Pacemaker 08/02/2023 Last Documented On 4 1:09PM ; [facility] Medical History Includes: Medical History addressed during this encounter Description Last Updated Denies a fear of falling. 08/02/2023 Last Documented On 4 1:09PM ; [facility] Has had no fall in the last 12 months. 0 08/02/2023 Last Documented On 4 1:09PM ; [facility] No Pain Pump 08/02/2023 Last Documented On 4 1:09PM ; [facility] No Spinal cord stimulator 08/02/2023 Last Documented On 4 1:09PM ; [facility] CT/MRI September 2022neck[facility]MCshoulderFeb 202 [facility] 04/11/2023 Last Documented On 4 2:38PM ; [facility] Currently wearing eyeglasses 04/11/2023 Last Documented On 4 2:38PM ; [facility] Injection/Nerve blocks 04/11/2023 Last Documented On 4 2:38PM ; [facility] Message/Acupressure 04/11/2023 Last Documented On 4 2:38PM ; [facility] Pain Clinic 04/11/2023 Last Documented On 4 2:38PM ; [facility] Physical therapy 04/11/2023 Last Documented On 4 2:38PM ; [facility] Please list all illnesses/co nditions you have been diagnosed with: HPTN; peripheral vascular disease; high cholesterol; restricted breathing disorder; lung stone; seizures; allergies; depression 04/11/2023 Last Documented On 4 2:38PM ; [facility] Please list all surgeries: 2 November neck surgerygallbladder removal 2020hysterectomy 2001appendectomy 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 on R femur removed 1999 04/11/2023 Last Documented On 4 2:38PM ; [facility] Severe Pain 04/11/2023 Last Documented On 4 2:38PM ; [facility] Treatment with TENS unit 04/11/2023 Last Documented On 4 2:38PM ; [facility] X-rays September 2022[facility] 04/11 Last Documented On 4 2:38PM ; [facility] Family History Includes: Family History addressed during this encounter Description Last Updated Maternal history of family history of is chemic heart disease 08/02/2023 Last Documented On 4 1:09PM ; [facility] Maternal history of family history of ki dney disease 08/02/2023 Last Documented On 4 1:09PM ; [facility] Review of Systems Includes: Review of Systems [...] Active Last Documented On 4 2:44PM ; [facility] NSAIDs Allergy 12/20/2022 Active Last Documented On 4 2:44PM ; [facility] Meloxicam Allergy 12/20/2022 Active Last Documented On 4 2:44PM ; [facility] Effexor XR Allergy 12/20/2022 Active Last Documented On 4 2:44PM ; [facility] Contrast Dye Allergy 12/20/2022 Active Last Documented On 4 2:44PM ; [facility] Note: THROAT CLOSES AND STOPS BREATHING Aspirin Allergy 12/20/2022 Active Last Documented On 4 2:44PM ; [facility] Encounters Encounter Provider Location Date Check-In Time Check-Out Time Diagnosis PAIN MANAGEMENT FOLLOW UP JOSE CADENA [facility] 08/02/19 24 2:37PM 2:57PM Spinal Stenosis Cervical,Myalgia and Myositis,Cervica l Radiculopathy,Sp ondylosis with Radiculopathy Cervical Region Insurance Includes: Active Insurance Policies Plan Name Member ID Group # Subscriber Relationship Effect austin Dates 1 - [facility] [id number] UZMA SOSA Se lf Clinical Notes Includes: Clinical Notes from this encounter * Progress note Date Encounter Last Documented by 08/02/2023 PAIN MANAGEMENT FOLLOW UP Last d ocumented on 08/06/2023; 1:09 PM, JOSE CADENA; [facility] Chief Complaint The Chief Complaint is: C/O NECK PAIN, WAS DUE TO HAVE NECK SURGERY IN AUG 2023 BUT INSURANCE DENIED, WOULD LIKE TO DISCUSS AN INJECTION. History of Present Illness - Allergy list [...] Last drug screen appropriate N/A Discussion: Patient presents to office with ongoing neck pain. Pain radiates to the left upper extremity. She was scheduled for surgery in August, but this was denied by insurance at the last minute for some reason. She has a plan to see surgeon with this being reordered. She questions a repeat cervical epidural at this time. However, last injection provided very little benefit. She continues home exercises as tolerated. Recommend she continue current medication regimen and keep follow-up with surgeon. I would not recommend a repeat epidural at this time. She verbalized understanding. Past note: Patient returns in follow-up to [...] aspect of daily living. She has a mobile home set up person help with cooking and self care. She [...] surgeries: 2015 neck surgerygallbladder removal 2020hysterectomy 2000appendectomy 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 on R femur removed 1998. Medical: Currently wearing eyeglasses and orthopedic history Left Knee Score mild pain Severe Pain. No Spinal cord stimulator and no Pain Pump. Surgical / Procedural: No Pacemaker. [facility] Physical Trauma: Has had no fall in [...] to heal. Physical Findings - Vitals taken 08/02/2023 02:39 pm BP-Sitting R 120/90 mmHg Pulse Rate-Sitting 100 bpm Temp-Temporal 96.5 F Height 64 in Weight 185 lbs Body Mass Index 31.8 kg/m2 Body Surface Area 1.9 m2 Pain Level 9 Pain Level Note NECK Oxygen Saturation 94 % Musculoskeletal System: General/bilateral: Musculoskeletal Scales: Value [...] extremity C5/6 dermatome, C6/7 dermatome in hand. Log Getter strength decreased on left. Psych: No apparent [...] agrees with treatment plan. Questions answered. Discussed Keep appt. with surgeon for surgical plan Do not recommend repeat epidural based on lack of efficacy Practice Management Use of tobacco assessment performed Review of medications documented; Standardized depression screening: negative for symptoms and for adult impression and score 0. A total of [30 ] minutes were spent on this patient's evaluation, as above, with greater than 50% of this time spent in direct [id number] counseling and coordination of care. Results of [...] but may be subject to typographical or financial planning adviser errors. Verify all diagnoses, medications, dosages, and patient instructions with patient and/or the originator of this document. Care Team - ADALBERTO WORKMAN- - Pain Management - SAMSON JANG MD Health Reminders - Assess BMI satisfied 08/02/2023. - Assess Tobacco Use satisfied 08/02/2023. - Depression Screening satisfied 08/02/2023. - Follow up plan for Depression Screening satisfied 08/02/2023. User Defined 1 Administered injection of trigger [...]
--- OUTSIDE RECORDS SUMMARY | 2024-09-02 10:14 | XMS_ITS | Continuity of Care Document ---
Author Organization [facility] Address [address] [place] [address] [address] [place] [address] Phone Care Team Providers Care Grain Elevator Clerk Name Role Phone Gonzalez OD, Mane Unavailable Unavailable Procedures Procedure Date Eye Exam & Treatment Refraction Eye Exam & Treatment Eye Exam & Treatment Eye Exam, New Patient Advance Directives Directive Yes / No Effective Date File Name No Information Encounters Encounter Description Practice Location Reason(s) For Visit Diagnoses Date Provider Providers Copied on Encounter [facility], [address] [place] [address] [address], [place], [place], [id number], tel:[phone] [facility] No Information 6-201 0 Gonzalez OD Mane. [address] [facility] [address] [facility] [address], [place], [place], [facility], [place]. tel:[phone] [facility], [address] [place] [address] [address], [place], [place], [id number], tel:[phone] [facility] No Information 1-200 9 Gonzalez OD Mane. [address], [place], [address], [place]. tel:[phone] [facility], [address] [place] [address] [address], [place], [place], [id number], tel:[phone] [facility] [place] No Information Oct-0 9-200 8 Gonzalez OD Mane. [address], [address], [place], [address], [place]. tel:[phone] [facility], [address], [place], [place], [id number], [place] tel:[phone] [facility] No Information Sep-2 8-200 7 Gonzalez OD Mane. [address], [place], [address], [place]. tel:[phone] Family History Family Member Type Diagnosis Age At Onset No Information Payers Payer name Insurance type Covered alliance party ID Authoriza tion(s) Medicaid [facility] [id number] Social History Type Description Quantity Date Captured Comments Sex Female Smoking Status No Information Chief Complaint And Reason For Visit No Information Reason For Referral Reason For Referral No Information History Of Present Illness Encounter Date Complaint History Of Prese nt Illness No Information Functional Status Date Functional Assessmen t No Information Instructions Date Instruction Additional Infor mation No Information Assessments Type Assessment Date No Information Patient Care Teams Name Effective Dates (start - stop) Status Members No Information
--- OUTSIDE RECORDS SUMMARY | 2024-09-02 10:14 | XMS_ITS | Referral Summary ---
Author Organization [facility] [address] [facility] [address] Address [address] [place] [address] Phone Care Team Providers Care Water Proofer Name Role Phone Mj Lee MD Primary Care Provider [phone] Allergies Active Allergy Reactions Criticality Noted Date Comments Aspirin Anaphylaxis High 03/01/2015 Anaphylaxis Meloxicam Anaphylaxis High 03/01/2018 [place]-3 Fatty Acids Anaphylaxis,Hives High 8 Other Anaphylaxis [...] Date Diagnosed Date Paresthesia of skin 02/10/2021 Social History Tobacco Use Types Packs/Day Years Used Date Smoking Tobacco: Every Day Cigarettes Personal Safety Answer Date Recorded Getting School Help Needed Not on file 09/16 Comments Unknown Sex and Gender Information Value Date Recorded Sex Assigned at Not on file Legal 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
--- OUTSIDE RECORDS SUMMARY | 2024-09-02 10:14 | XMS_ITS | Clinical Summary ---
Author Organization [facility] Address [address] [place] [address] Phone Care Team Providers Care Plywood Layup Line Core Layer Name Role Phone JOSE HOLLINGSWORTH Unavailable [phone] SAMSON JANG MD Unavailable [phone] Reason for Visit and Chief Complaint * PHONE CALL Plan of Treatment No Plan [...] Documented On 3:21PM By JOSE CADENA ; [facility] Varenicline Tartrate 1 MG Oral Tablet 06/20/2023 Pro vider: SAMSON JANG MD Diagnosis: Last Documented On 06/21/2023 9:05AM By Snehal CID ; [facility] Ketorolac Tromethamine 10 MG Oral Tablet 06/08/2023 Provider: SAMSON JANG MD Diagnosis: Last Documented On 06/21/2023 9:06AM By Snehal CID ; [facility] Latanoprost 0.005% Ophthalmic Solution 06/05/2023 Pr ovider: Diagnosis: Last Documented On 06/21/2023 9:05AM By Snehal CID ; [facility] QUEtiapine Fumarate 200 MG Oral Tablet 01/10/2023 Pr ovider: Diagnosis: AT BEDTIME Last Documented On 3 10:08AM By Snehal CID ; [facility] Melatonin 5 MG Oral Capsule 12/20/2022 Provider: Diagnosis: Last Documented On 3 11:26AM By Snehal CID ; [facility] Banophen 25 MG Oral Capsule 12/19/2022 Provider: SAMSON JANG MD Diagnosis: Last Documented On 3 11:22AM By Snehal CID ; [facility] Pregabalin 150 MG Oral Capsule 12/19/2022 Provider: SAMSON JANG MD Diagnosis: Last Documented On 3 11:23AM By Snehal CID ; [facility] QUEtiapine Fumarate 100 MG Oral Tablet 12/05/2022 Pr ovider: Diagnosis: Last Documented On 3 11:24AM By Snehal CID ; [facility] Ventolin HFA 108 (90 Base) M CG/ACT Inhalation Aerosol Solution 11/30/2022 Provider: SAMSON JANG MD Diagnosis: Last Documented On 3 11:25AM By Snehal CID ; [facility] hydroCHLOROthiazide 12.5 MG Oral Tablet 11/28/2022 P rovider: SAMSON JANG MD Diagnosis: Last Documented On 3 11:22AM By Snehal CID ; [facility] Dicyclomine HCl 20 MG Oral Tablet 11/27/2022 Provide r: SAMSON JANG MD Diagnosis: Last Documented On 3 11:23AM By Snehal CID ; [facility] Methocarbamol 750 MG Oral Tablet 11/24/2022 Provider : SAMSON JANG MD Diagnosis: Last Documented On 3 11:23AM By Snehal CID ; [facility] Atorvastatin Calcium 40 MG Oral Tablet 11/24/2022 Pr ovider: SAMSON JANG MD Diagnosis: Last Documented On 3 11:23AM By Snehal CID ; [facility] Candesartan Cilexetil 32 MG Oral Tablet 11/20/2022 Nataly gross: SAMSON JANG MD Diagnosis: Last Documented On 3 11:22AM By Snehal CID ; [facility] Medications Administered Includes: Administered Medications from this encounter No Administered Medications Recorded Results Includes: Results discussed during this encounter No Results Recorded For Specified Dates History of Present Illness Includes: History of Present Illness from this encounter HPI Pharmacy name:~location:[facility]. Social History Description Last Updated Former smoker 08/02/2023 Last Documented On 3 4:48PM ; [facility] Current smoker 12/20/2022 Last Documented On 3 4:48PM ; [facility] Difficulty walking 12/20/2022 Last Documented On 3 4:48PM ; [facility] Smoking packs of cigarettes per day 1 Last Documented On 3 4:48PM ; [facility] Smoking Status Unknown Medical History Includes: Medical [...] Active Last Documented On 4 2:44PM ; [facility] NSAIDs Allergy 12/20/2022 Active Last Documented On 4 2:44PM ; [facility] Meloxicam Allergy 12/20/2022 Active Last Documented On 4 2:44PM ; [facility] Effexor XR Allergy 12/20/2022 Active Last Documented On 4 2:44PM ; [facility] Contrast Dye Allergy 12/20/2022 Active Last Documented On 4 2:44PM ; [facility] Note: THROAT CLOSES AND STOPS BREATHING Aspirin Allergy 12/20/2022 Active Last Documented On 4 2:44PM ; [facility] Encounters Encounter Provider Location Date Check-In Time Check-Out Time Diagnosis * PHONE CALL JOSE ACEVEDO 05/31/2023 4:48PM 11:59PM Insurance Includes: Active Insurance Policies Plan Name Member ID Group # Subscriber Relationship Effect aust[place] Dates 1 - [facility] [id number] UZMA SOSA Se lf Clinical Notes Includes: Clinical Notes from this encounter * Progress note Date Encounter Last Documented by 05/31/2023 * PHONE CALL Last documented on 06/04/2023; 3:18 PM, JOSE ACEVEDO; [facility] Chief Complaint Phone Call - Chief Concern: reason for call:pt states ever since i got the injection done on 05/23/23, i've gotten worse , pt c/o increased pain in neck up to back of head, down left side of back, left side of buttocks, left arm and left leg pt phone # for return call:[phone] date/initials:05/31/23, [place]. History of Present Illness Pharmacy name:~location:[facility]. Current Medication - ALPRAZolam 0.5 MG Oral [...] bed time 0 days, 0 refills - Diclofenac Sodium 75 MG Oral Tablet Delayed Release One tablet dailystop ketoralac, 30 days, 0 refills - Dicyclomine HCl 20 [...] refills - predniSONE 50 MG Oral Tablet 1 po 13 hours prior to procedure, [...] cigarettes per day 1 and former smoker. Allergies - Aspirin - Contrast Dye - Effexor XR - Meloxicam - NSAIDs - Shellfish Plan StartCited - Other PHY ORDER/COMMENT The neck injection has caused her back pain? That is highly unusual. Do recommend using ice to region. Does she has a muslce relaxant? If not, we can try a short dose of that EndCited Care Team - ADALBERTO WORKMAN- - Pain Management - SAMSON JANG MD Health Reminders - Assess Tobacco Use satisfied 05/31/2023.
--- OUTSIDE RECORDS SUMMARY | 2024-09-02 10:15 | XMS_ITS ---
Author Organization [facility] Address [address] [place] [address] Phone Care Team Providers Care Bottle Labeler Name Role Phone TAQUERIA ANP-BC, JOSE L Unavailable [phone] SAMSON JANG MD Unavailable [phone] Plan of Treatment No Plan of Treatment Recorded Assessments Includes: Assessments for all patient encounters Findings Encounter Date Cervical radiculopathy PAIN MANAGEMENT F OLLOW UP with JOSE L TAQUERIA ANP-BC 08/02/2023 Last Documented On 4 1:09PM ; [facility] Cervical spine stenosis PAIN MANAGEMENT FOLLOW UP with JOSE L TAQUERIA ANP-BC 08/02/2023 Last Documented On 4 1:09PM ; [facility] Cervical spondylosis with radiculopathy PAIN MANAGEMENT FOLLOW UP with JOSE L TAQUERIA ANP-BC 08/02/2023 Last Documented On 4 1:09PM ; [facility] Myalgia and myositis PAIN MANAGEMENT FOL LOW UP with JOSE L TAQUERIA ANP-BC 08/02/2023 Last Documented On 4 1:09PM ; [facility] Cervical radiculopathy TELEHEALTH with JOSE L TAQUERIA ANP-BC 06/21/2023 Last Documented On 3 9:16AM ; [facility] Cervical spine stenosis TELEHEALTH with JOSE L TAQUERIA ANP-BC 06/21/2023 Last Documented On 3 9:16AM ; [facility] Cervical spondylosis with radiculopathy TELEHEALTH with JOSE L TAQUERIA ANP-BC 06/21/2023 Last Documented On 3 9:16AM ; [facility] Myalgia and myositis TELEHEALTH with JOSE L BL EVINS ANP-BC 06/21/2023 Last Documented On 3 9:16AM ; [facility] Cervical radiculopathy PAIN MANAGEMENT F OLLOW UP with JOSE L TAQUERIA ANP-BC 04/11/2023 Last Documented On 3 2:21PM ; [facility] Cervical spine stenosis PAIN MANAGEMENT FOLLOW UP with JOSE L TAQUERIA ANP-BC 04/11/2023 Last Documented On 3 2:21PM ; [facility] Cervical spondylosis with radiculopathy PAIN MANAGEMENT FOLLOW UP with JOSE L TAQUERIA ANP-BC 04/11/2023 Last Documented On 3 2:21PM ; [facility] Myalgia and myositis PAIN MANAGEMENT FOL LOW UP with JOSE L TAQUERIA ANP-BC 04/11/2023 Last Documented On 3 2:21PM ; [facility] Cervical radiculopathy TELEHEALTH with JOSE L TAQUERIA ANP-BC 01/31/2023 Last Documented On 3 11:50AM ; [facility] Cervical spine stenosis TELEHEALTH with JOSE L TAQUERIA ANP-BC 01/31/2023 Last Documented On 3 11:50AM ; [facility] Myalgia and myositis TELEHEALTH with JOSE L BL EVINS ANP-BC 01/31/2023 Last Documented On 3 11:50AM ; [facility] Cervical radiculopathy PAIN MANAGEMENT N EW CONSULT with JOSE L TAQUERIA ANP-BC 12/20/2022 Last Documented On 3 2:42PM ; [facility] Cervical spine stenosis PAIN MANAGEMENT NEW CONSULT with JOSE L TAQUERIA ANP-BC 12/20/2022 Last Documented On 3 2:42PM ; [facility] Myalgia and myositis PAIN MANAGEMENT NEW CONSULT with JOSE L TAQUERIA ANP-BC 12/20/2022 Last Documented On 3 2:42PM ; [facility] Medical Equipment - Implanted Devices Includes: Current and historical Devices No Medical Equipment Recorded Medications Includes: Current and historical Medications Current Medications (continue as prescribed) Lidocaine 5% External Patch 09/20/2023 Provider: JOSE GOODEN Diagnosis: Spinal stenosis, cervical region as directed apply patch to a ffected area for 12 hours and remove for 12 hours Last Documented On 4 3:21PM By JOSE CADENA ; [facility] Varenicline Tartrate 1 MG Oral Tablet 06/20/2023 Pro vider: SAMSON JANG MD Diagnosis: Last Documented On 06/21/2023 9:05AM By Snehal CID ; [facility] Ketorolac Tromethamine 10 MG Oral Tablet 06/08/2023 Provider: SAMSON JANG MD Diagnosis: Last Documented On 06/21/2023 9:06AM By Snehal CID ; [facility] Latanoprost 0.005% Ophthalmic Solution 06/05/2023 Pr ovider: Diagnosis: Last Documented On 06/21/2023 9:05AM By Snehal CID ; [facility] QUEtiapine Fumarate 200 MG Oral Tablet 01/10/2023 Pr ovider: Diagnosis: AT BEDTIME Last Documented On 3 10:08AM By Snehal CID ; [facility] Melatonin 5 MG Oral Capsule 12/20/2022 Provider: Diagnosis: Last Documented On 3 11:26AM By Snehal CID ; [facility] Banophen 25 MG Oral Capsule 12/19/2022 Provider: SAMSON JANG MD Diagnosis: Last Documented On 3 11:22AM By Snehal CID ; [facility] Pregabalin 150 MG Oral Capsule 12/19/2022 Provider: SAMSON JANG MD Diagnosis: Last Documented On 3 11:23AM By Snehal CID ; [facility] QUEtiapine Fumarate 100 MG Oral Tablet 12/05/2022 Pr ovider: Diagnosis: Last Documented On 3 11:24AM By Snehal CID ; [facility] Ventolin HFA 108 (90 Base) M CG/ACT Inhalation Aerosol Solution 11/30/2022 Provider: SAMSON JANG MD Diagnosis: Last Documented On 3 11:25AM By Snehal CID ; [facility] hydroCHLOROthiazide 12.5 MG Oral Tablet 11/28/2022 P rovider: SAMSON JANG MD Diagnosis: Last Documented On 3 11:22AM By Snehal CID ; [facility] Dicyclomine HCl 20 MG Oral Tablet 11/27/2022 Provide r: SAMSON JANG MD Diagnosis: Last Documented On 3 11:23AM By Snehal CID ; [facility] Methocarbamol 750 MG Oral Tablet 11/24/2022 Provider : SAMSON JANG MD Diagnosis: Last Documented On 3 11:23AM By Snehal CID ; [facility] Atorvastatin Calcium 40 MG Oral Tablet 11/24/2022 Pr ovider: SAMSON JANG MD Diagnosis: Last Documented On 3 11:23AM By Snehal CID ; [facility] Candesartan Cilexetil 32 MG Oral Tablet 11/20/2022 P rovider: SAMSON JANG MD Diagnosis: Last Documented On 3 11:22AM By Snehal CID ; [facility] Past Medications on file Lidocaine 5% External Patch 06/21/2023 - 09/20/2023 Provider: JOSE CADENA Diagnosis: Spinal stenosis, cervical region as directed apply patch to a ffected area for 12 hours and remove for 12 hours Last Documented On 4 3:14PM By JOSE CADENA ; [facility] Diclofenac Sodium 75 MG Oral Tablet Delayed Release 05/08/2023 - 06/21/2023 Provider: JOSE CADENA Diagnosis: Spinal stenosis, cervical region One tablet dailystop ketoralac Last Documented On 3 9:11AM By JOSE CADENA ; [facility] diphenhydrAMINE HCl 50 MG Oral Capsule 04/11/2023 - 06/21/2023 Provider: JOSE CADENA Diagnosis: Spinal stenosis, cervical region take 1 tablet by mouth 1 fredrick r prior to procedure Last Documented On 06/21/2023 9:04AM By Snehal CID ; [facility] Diclofenac Sodium 75 MG Oral Tablet Delayed Release 04/11/2023 - 05/08/2023 Provider: JOSE CADENA Diagnosis: Spinal stenosis, cervical region One tablet dailystop ketoralac Last Documented On 3:47PM By JOSE CADENA ; [facility] predniSONE 50 MG Oral Tablet 04/11/2023 - 06/21/2023 Provider: JOSE CADENA Diagnosis: Spinal stenosis, cervical region 1 po 13 hours prior to proce dure, 1 po 7 hours prior and 1 po 1 hour prior to procedure Last Documented On 06/21/2023 9:04AM By Snehal CID ; [facility] ALPRAZolam 0.5 MG Oral Tablet 04/11/2023 - 06/21/2023 Provider: JOSE CADENA Diagnosis: Other spondylosi s with radiculopathy, cervical region as directed 1 po 1 hour prio r to procedure, 1 po 30 minutes prior to procedure Last Documented On 06/21/2023 9:03AM By Snehal CID ; [facility] Ketorolac Tromethamine 10 MG Oral Tablet 04/06/2023 - 06/21/2023 Provider: SAMSON Sosa Diagnosis: Last Documented On 06/21/2023 9:04AM By Snehal CID ; [facility] Lidocaine 5% External Patch 03/19/2023 - 06/21/2023 Provider: JOSE CADENA Diagnosis: Spinal stenosis, cervical region as directed apply patch to a ffected area for 12 hours and remove for 12 hours Last Documented On 9:16AM By JOSE CADENA ; [facility] ALPRAZolam 0.5 MG Oral Tablet 02/27/2023 - 04/11/2023 Provider: JOSE CADENA Diagnosis: as directed 1 po 1 hour prio r to procedure, 1 po 30 minutes prior to procedure Last Documented On 3 1:28PM By Lenora CID ; [facility] diphenhydrAMINE HCl 50 MG Oral Capsule 02/12/2023 - 04/11/2023 Provider: JOSE CADENA Diagnosis: Spinal stenosis, cervical region take 1 tablet by mouth 1 fredrick r prior to procedure Last Documented On 3 2:14PM By JOSE CADENA ; [facility] predniSONE 50 MG Oral Tablet 02/12/2023 - 04/11/2023 Provider: JOSE CADENA Diagnosis: Spinal stenosis, cervical region take 1 tablet by mouth 13 ho urs prior to procedure, 7 hours prior to procedure and 1 hour prior to procedure Last Documented On 3 1:28PM By Lenora CID ; [facility] Lidocaine 5% External Patch 12/21/2022 - 03/19/2023 Provider: JOSE CADENA Diagnosis: Spinal stenosis, cervical region as directed apply patch to a ffected area for 12 hours and remove for 12 hours Last Documented On 3 4:25PM By JOSE CADENA ; [facility] Topiramate 50 MG Oral Tablet 12/12/2022 - 04/11/2023 P rovider: SAMSON JANG MD Diagnosis: Last Documented On 3 1:28PM By Lenora CID ; [facility] Montelukast Sodium 10 MG Ora l Tablet 12/04/2022 - 06/21/2023 Provider: SAMSON Sosa Diagnosis: Last Documented On 06/21/2023 9:04AM By Snehal CID ; [facility] Doxepin HCl 25 MG Oral Capsule 11/28/2022 - 06/21/2023 Provider: Diagnosis: Last Documented On 06/21/2023 9:04AM By Snehal CID ; [facility] Ketorolac Tromethamine 10 MG Oral Tablet 11/24/2022 - 06/21/2023 Provider: SAMSON Sosa Diagnosis: Last Documented On 06/21/2023 9:04AM By Snehal CID ; [facility] Medications Administered Includes: Administered Medications in patient's chart No Administered Medications Recorded Results Includes: Results from 09/02/2023 through 09/02/2024 No Results Recorded For Specified Dates History of Present Illness History of Present Illness not supported for this document type No History of Present Illness Recorded Social History Description Last Updated Former smoker 08/02/2023 Last Documented On 4 1:09PM ; [facility] No consumption of alcohol 08/02/2023 Last Documented On 4 1:09PM ; [facility] Not using drugs 08/02/2023 Last Documented On 4 1:09PM ; [facility] Current smoker 12/20/2022 Last Documented On 3 2:42PM ; [facility] Difficulty walking 12/20/2022 Last Documented On 3 2:42PM ; [facility] Smoking packs of cigarettes per day 1 Last Documented On 3 2:42PM ; [facility] Smoking Status Unknown Procedures and Surgical History Surgical History Last Updated No Pacemaker 08/02/2023 Last Documented On 4 1:09PM ; [facility] Medical History Includes: Medical History in patient's chart Description Last Updated Denies a fear of falling. 08/02/2023 Last Documented On 4 1:09PM ; [facility] Has had no fall in the last 12 months. 0 08/02/2023 Last Documented On 4 1:09PM ; [facility] No Pain Pump 08/02/2023 Last Documented On 4 1:09PM ; [facility] No Spinal cord stimulator 08/02/2023 Last Documented On 4 1:09PM ; [facility] CT/MRI September 2022neckGRMCshoulderFeb 202 3[facility] 04/11/2023 Last Documented On 3 2:21PM ; [facility] Currently wearing eyeglasses 04/11/2023 Last Documented On 3 2:21PM ; [facility] Injection/Nerve blocks 04/11/2023 Last Documented On 3 2:21PM ; [facility] Message/Acupressure 04/11/2023 Last Documented On 3 2:21PM ; [facility] Pain Clinic 04/11/2023 Last Documented On 3 2:21PM ; [facility] Physical therapy 04/11/2023 Last Documented On 3 2:21PM ; [facility] Please list all illnesses/co nditions you have been diagnosed with: HPTN; peripheral vascular disease; high cholesterol; restricted breathing disorder; lung stone; seizures; allergies; depression 04/11/2023 Last Documented On 3 2:21PM ; [facility] Please list all surgeries: 2 November neck surgerygallbladder removal 2020hysterectomy 2000appendectomy 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 on R femur removed 199804/11/2023 Last Documented On 3 2:21PM ; [facility] Severe Pain 04/11/2023 Last Documented On 3 2:21PM ; [facility] Treatment with TENS unit 04/11/2023 Last Documented On 3 2:21PM ; [facility] X-rays September 2022neck and back[facility] 04/11 Last Documented On 3 2:21PM ; [facility] Family History Includes: Family History in patient's chart Description Last Updated Maternal history of family history of is chemic heart disease 08/02/2023 Last Documented On 4 1:09PM ; [facility] Maternal history of family history of ki dney disease 08/02/2023 Last Documented On 4 1:09PM ; [facility] Review of Systems Review of Systems not supported for this document type No Review of Systems Recorded Mental Status No Mental Status Recorded Functional Status No Functional Status Recorded Physical Exam Physical Exam not supported for this document type No Physical Exam Recorded Allergies Includes: Active, inactive, and resolved Allergies Substance Type Reaction Onset Date Resolved Date Statu s Shellfish Allergy 12/20/2022 Active Last Documented On 4 2:44PM ; [facility] NSAIDs Allergy 12/20/2022 Active Last Documented On 4 2:44PM ; [facility] Meloxicam Allergy 12/20/2022 Active Last Documented On 4 2:44PM ; [facility] Effexor XR Allergy 12/20/2022 Active Last Documented On 4 2:44PM ; [facility] Contrast Dye Allergy 12/20/2022 Active Last Documented On 4 2:44PM ; [facility] Note: THROAT CLOSES AND STOPS BREATHING Aspirin Allergy 12/20/2022 Active Last Documented On 4 2:44PM ; [facility] Insurance Includes: Active Insurance Policies Plan Name Member ID Group # Subscriber Relationship Effect aust[place] Dates 1 - [facility] [id number] UZMA SOSA Se lf Clinical Notes Includes: Signed Clinical Notes starting from 08/11/2022 No Clinical Notes Recorded
[2024-09-02] MEDS: predniSONE 10 MG TABLET 50 MG PO (12:53)
--- NOTE | 2024-09-02 12:53 | ED.BACK ---
HPI - Back Pain/Injury General Chief Complaint: Back Pain/Injury Stated Complaint: low back pain Time Seen by Provider: 09/02/24 12:11 History of Present Illness HPI Narrative: 59-year-old female with a past medical history including chronic back pain, lumbar radiculopathy, history of some spinal stenosis status post ACDF and nerve compression status post decompression of the ulnar nerve. She presents to the emergency room today with acute on chronic back pain. She describes bilateral lumbar strain with some radiation down her left hip. No paresthesias or weakness. She states she is able to ambulate with the assistance of her home medications including muscle relaxers and ketorolac but the pain has gotten worse. Denies any falls or injuries. No lifting or twisting. She has already seen her neurosurgeon and reported these issues and got a referral to physical therapy on the which is next week. Was given a short course of steroids which she felt helped her pain significantly. She has finished her course of steroids and has recurrence for pain. Denies any neurological symptoms such as weakness, footdrop, urinary incontinence, incontinence stool, urinary retention or any complaints otherwise. No history of lumbar surgery. Related Data Home Medications ?Medication ?Instructions ?Recorded ?Confirmed ?Last Taken ?Type hydrochlorothiazide 12.5 mg tablet 12.5 mg PO DAILY 01/05/22 02/28/24 Unknown History pregabalin 150 mg capsule (Lyrica) 150 mg PO BID 01/05/22 02/28/24 Unknown History diphenhydramine HCl 25 mg tablet 25 mg PO TID 04/13/22 02/28/24 Unknown History (Allergy (diphenhydramine)) candesartan 16 mg tablet 32 mg PO DAILY 10/19/22 02/28/24 Unknown History ketorolac 10 mg tablet 10 mg PO Q6H PRN Pain 10/19/22 02/28/24 10/02/23 15:00 History atorvastatin 40 mg tablet 40 mg PO DAILY 12/26/22 02/28/24 Unknown History melatonin 5 mg/15 mL oral liquid 20 mg PO HS 12/26/22 02/28/24 Unknown History brinzolamide 1 %-brimonidine 0.2 % 1 drp EACH EYE TID 08/30/23 03/05/24 03/05/24 04:00 History eye drops,suspension (Simbrinza) latanoprost 0.005 % eye drops 1 drp EACH EYE DAILY 08/30/23 03/05/24 03/05/24 04:00 History lidocaine 4 % topical patch 1 patch topical DAILY PRN Pain 08/30/23 02/28/24 Unknown History (Aspercreme (lidocaine)) mirtazapine 15 mg tablet (Remeron) 15 mg PO HS 09/24/23 02/28/24 Unknown History quetiapine 100 mg tablet 100 mg PO BID PRN 08/07/24 Unknown History Allergies Allergy/AdvReac Type Severity Reaction Status Date / Time meloxicam Allergy Severe Anaphylactic Verified 09/02/24 09:31 Shock shellfish derived Allergy Severe Anaphylactic Verified 09/02/24 09:31 Shock venlafaxine (From Effexor) Allergy Mild Rash Verified 09/02/24 09:31 aspirin Allergy Unknown Anaphylactic Verified 09/02/24 09:31 Shock iodine Allergy Unknown Anaphylactic Verified 09/02/24 09:31 Shock NSAIDS (Non-Steroidal Allergy Rash Verified 09/02/24 09:31 Anti-Inflamma omega-3 acid ethyl esters Allergy Anaphylactic Verified 09/02/24 09:31 Shock Review of Systems Review of Systems: As reviewed above in HPI [facility] Past Medical History Medical History Cholecystectomy planned BMI 32.0-32.9,adult Erosive gastritis Acute LUQ pain Colon cancer screening Epigastric pain Tobacco abuse Seizures Kidney disease Hypertension Migraine History of COPD Hx of chronic arthritis Allergies Surgical History Surgical History History of hysterectomy History of appendectomy Family History Family History Father Carcinoma of colon Lung cancer Mother Heart disease Hypertension Depression Sibling Heart disease Hypertension Social History Social History Smoking packs per day: 1 Smoking cigarettes per day: 20.0 Years smoked: 42 Smoking pack-years: 42.00 Smoking status: Former smoker Tobacco type: cigarettes Second hand tobacco smoke exposure: Yes Smoking end date: 02/13/23 Alcohol intake: never Substance use: never Substance use type: does not use Last use: 4 months ago Do You Feel Safe in your Home?: Yes Lack of Transportation: No Lack of Food: Never True Current Housing: I Have Housing Concerned About Future Housing: No Difficulty Paying Gas/Electric Bills: No Difficulty Paying for Meds: No Currently Unemployed: No Education: High School Diploma/GED Difficulty w/ Childcare or Family Care: No Living arrangements: alone Occupation/Education: other Gender identity (if verbalized by the patient): Female Spiritual care concerns: No Agree to blood products: Yes Exam Narrative: GENERAL: [Well-appearing, well-nourished, and in no acute distress.] HEAD: [Normocephalic, atraumatic.] EYES: [PERRLA and EOMI.] ENT: Nares clear, no rhinorrhea or epistaxis. Mucous membranes moist. NECK: Supple. CHEST: [Clear to auscultation. No respiratory distress.] HEART: [Regular rate and rhythm]. No murmur heard. [Normal peripheral pulses.] ABDOMEN: [Soft, nondistended], [nontender], [No rigidity or guarding] EXTREMITIES: Normal range of motion. [No edema.] Focal tenderness to palpation over bilateral sacroiliac joints without any tenderness midline. Ambulated in the emergency department under my supervision without any ataxic or antalgic gait. Full strength and sensation throughout both lower extremities, 5/5 strength in the hip flexors and extensors, knee flexors and extensors and plantar and dorsiflexion of the ankle is full and symmetric. No footdrop noted. SKIN: Warm, dry, no rash. NEURO: [No focal deficits]. Alert and oriented [x3.] No saddle anesthesias, no motor or sensory deficits. PSYCH: [Normal mood and affect.] Course Vital Signs Vital signs: Vital Signs Temperature 35.9 C L 09/02/24 09:26 Pulse Rate 100 09/02/24 09:26 Respiratory Rate 18 09/02/24 09:26 Blood Pressure 112/68 09/02/24 09:26 Pulse Oximetry 100 09/02/24 09:26 Oxygen Delivery Room Air 09/02/24 09:26 Temperature 35.9 C L 09/02/24 09:26 Pulse Rate 100 02/11/25 09:26 Respiratory Rate 18 09/02/24 09:26 Blood Pressure 112/68 09/02/24 09:26 Pulse Oximetry 100 09/02/24 09:26 Oxygen Delivery Room Air 09/02/24 09:26 MDM - Back Pain/Injury MDM Narrative Medical decision making narrative: 59-year-old female with history of acute on chronic back pain, cervical stenosis status post ACDF, ulnar neuropathy status post decompression. She follows with Neurosurgery Outpatient who referred her to physical therapy starting on the . She was completing a course of steroids and feels like this has helped her but now is having regression of her pain as she completed her medication. She ambulated in the ED without difficulty, normal strength and sensation within unremarkable neurological assessment. No red flag signs of cauda equina or central canal stenosis or conus medullaris syndrome. Patient was given a dose of tramadol here as well as prednisone and will be sent home with prescriptions for the above to make it through physical therapy and have regular outpatient follow-up with her neurosurgeon. Patient was given strict return precautions and verbalized understanding instructions. Medical Records Attestation: I reviewed the patient's medical records. Discharge Plan Discharge Clinical Impression: Lumbago, Chronic back pain Patient Disposition: Home, Self-Care Condition: Stable Instructions: Antibiotic Form, Acute Low Back Pain (ED), Back Pain (ED), Lower Back Exercises (ED) Additional Instructions: Return to the ER if you have increased pain in your back, you develop lower extremity weakness/numbness/paralysis, you have numbness or tingling in your private parts, or you are unable to control your ability to urinate/stool. Follow-up with your regular neurosurgeon and complete physical therapy which is prescribed next week. Patient Language: Slovak Prescriptions: New tramadol 25 mg tablet 25 mg PO Q8H PRN (Reason: pain) Qty: 14 0RF prednisone 50 mg tablet 50 mg PO DAILY 5 Days Qty: 5 0RF No Action diphenhydramine HCl [Allergy (diphenhydramine)] 25 mg tablet 25 mg PO TID ketorolac 10 mg tablet 10 mg PO Q6H PRN (Reason: Pain) lidocaine [Aspercreme (lidocaine)] 4 % adhesive patch,medicated 1 patch topical DAILY PRN (Reason: Pain) Rx Instructions: Place on neck latanoprost 0.005 % drops 1 drp EACH EYE DAILY Simbrinza 1-0.2 % drops,suspension 1 drp EACH EYE TID quetiapine 100 mg tablet 100 mg PO BID PRN methylprednisolone [Medrol (Gregory)] 4 mg tablets,dose pack See Rx Instructions PO PER PKG DIR Qty: 21 0RF Rx Instructions: PO PER PKG DIR for 6 days hydrochlorothiazide 12.5 mg tablet 12.5 mg PO DAILY pregabalin [Lyrica] 150 mg capsule 150 mg PO BID candesartan 16 mg tablet 32 mg PO DAILY atorvastatin 40 mg tablet 40 mg PO DAILY melatonin 5 mg/15 mL Liquid 20 mg PO HS omeprazole 40 mg capsule,delayed release(DR/EC) 40 mg PO .daily Qty: 30 12RF mirtazapine [Remeron] 15 mg Tablet 15 mg PO HS cyclobenzaprine 10 mg tablet 10 mg PO TID PRN (Reason: Muscle Spasms) 10 Days Qty: 30 0RF Follow-up/Referrals: Mj Lee MD [Primary Care Provider] - Time of Disposition: 13:01
[2024-09-02] MEDS: traMADol HCL (*CRX) 25 MG TABLET PO (12:54)
[2024-09-02 13:15] VITALS: BP 110/70; PULSE 97; RESP 16; O2SAT 93
--- OUTSIDE RECORDS SUMMARY | 2024-09-02 13:15 | XMS_ITS | Encounter Summary ---
Author Organization [facility] Address [facility] [place] [address] Care Team Providers Care Process Engineering Intern Name Role Phone Eulalia Lema DO Primary Care Provider [phone] Dayna Maki MD Primary Care Provider Dayna Maki MD Primary Care Provider Mj Lee MD Primary Care Provider [phone] Dayna Maki MD Unavailable Eulalia Lema DO Unavailable Dayna Maki MD Primary Care Provider Reason for Visit * Reason Onset Date Comments General 02/28/2018 Results 02/28/2018 Patient requeste d lab results and refill on her HCTZ Appointment 02/28/2018 Encounter Details Date Type Department Care Team (Late st Contact Info) Description 02/28/2018 Telephone [facility] [address] [facility] [address] [place] [address] Eulalia Lema DO [address] [facility] [place] [address] General; Results (Patient requested lab [...] documented as of this encounter Care Teams Process Engineering Intern Relationship Specialty Start Date End Date Eulalia Lema DO PCP - General 02/18/18 03/20/18 Dayna Maki MD PCP - General 03/21/18 12/21/20 Dayna Maki MD PCP - General Internal Medicine 12/22/20 12/22/20 Mj Lee MD [address] [place] [address] [place] [address] PCP - General Internal Medicine 12/23/20 12/23/20 Dayna Maki MD [address] [place] [address] [place] [address] PCP - General 12/24/20 Dayna Maki MD 12/22/20 Eulalia Lema DO Resident - PCP Internal Medicine 02/15/18 documented as of this encounter
--- OUTSIDE RECORDS SUMMARY | 2024-09-02 13:15 | XMS_ITS | Encounter Summary ---
Author Organization [facility] Address [facility] [place] [address] Care Team Providers Care Land Leases And Rentals Manager Name Role Phone Eulalia Lema DO Primary Care Provider + [phone] Dayna Maki MD Primary Care Provider Dayna Maki MD Primary Care Provider Mj Lee MD Primary Care Provider [phone] Dayna Maki MD Unavailable [phone] Eulalia Lema DO Unavailable [phone] Dayna Maki MD Primary Care Provider Reason for Visit * Reason Onset Date Comments General 02/19/2018 black stools Encounter Details Date Type Department Care Team (Late st Contact Info) Description 02/19/2018 Nurse Triage [facility] General Internal Medicine [address] [facility] [address] [place] [address] Eulalia Lema DO [address] [facility] [place] [address] General (black stools) Social History [...] period? n/a Protocols used: STOOLS - UNUSUAL LUGGY-DMOVF-EI, RECTAL [id number] Patient given within 2 weeks disposition, patient [...] documented as of this encounter Care Teams Land Leases And Rentals Manager Relationship Specialty Start Date End Date Eulalia Lema DO PCP - General 02/18/18 03/20/18 Dayna Maki MD PCP - General 03/21/18 12/21/20 Dayna Maki MD PCP - General Internal Medicine 12/22/20 12/22/20 Mj Lee MD [address] [place] [address] PCP - General Internal Medicine 12/23/20 12/23/20 Dayna Maki MD [address] [place] [address] [place] [address] PCP - General 12/24/20 Dayna Maki MD 12/22/20 Eulalia Lema DO Resident - PCP Internal Medicine 02/15/18 documented as of this encounter
--- OUTSIDE RECORDS SUMMARY | 2024-09-02 13:15 | XMS_ITS | CONTINUITY OF CARE DOCUMENT ---
Author Name aidan moniqueinez Address Unknown Organization [facility] Address [address] [facility] [address] [place] [address] Phone [phone] Care Team Providers Care Electrical Equipment Technician Name Role Phone Fausto Stinson MD Unavailable SAMSON JANG MD Unavailable [phone] SAMSON JANG MD Unavailable PROBLEMS Condition Status Date Provider Notes Dizziness active Fausto Stinson MD Hypercholesterolemia active Fausto hernandez MD HTN essential active Fausto Stinson MD PAD - BLE with rest pain active Chivo perera MD PAD - BLE with claudication active Chivo sutton MD PAD - RLE with ulcer active Chivo Gomes MD Angina - unspecified active Chivo Gomes MD Preop cardiovasc. examination active Chivo Gomes MD PVD - unspecified active Chivo Gomes MD Chest pain - precordial active Chivo Shearer ra, MD Abnormal electrocardiogram active Chivo weber MD Leg pain, bilateral active Cedrick Plurad Tobacco abuse active Cedrick Plurad COPD active Cedrick Plurad Chest pain (unspecified) completed - Chivo Gomes MD Autoimmune disease, not else where classified active Antolin Brink MD Bipolar affective psychosis active Antolin alford MD Arthritis active Antolin Brink MD Neuropathy active Antolin Brink MD Easy bruising active Antolin Brink MD ENCOUNTERS Date Type Provider Location Encounter Diag nosis 8 - 4 In-person encounter Office Visit Fausto Stinson MD [facility] 0 - 8 In-person encounter Office Visit Fausto Stinson MD [facility] 1 - 1 In-person encounter Office Visit Fausto Stinson MD [facility] Dizziness 5 - 8 In-person encounter Office Visit Fausto Stinson MD [facility] 5 - 6 In-person encounter Office Visit Fausto Stinson MD [facility] 8 - 2 In-person encounter Office Visit Fausto Stinson MD [facility] 5 - 7 In-person encounter Office Visit Fausto Stinson MD [facility] HTN essentialHypercholesterolemia 6 - 9 In-person encounter Office Visit Fausto Stinson MD [facility] 9 - 8 In-person encounter Office Visit Fausto Stinson MD [facility] PAD - RLE with ulcerPAD - BLE with claudicationPAD - BLE with rest pain 4 - 4 In-person encounter Office Visit Chivo Gomes MD [facility] Chest pain (unspecified)Abnormal electrocardiogramChest pain - precordialPVD - unspecifiedPreop cardiovasc. examinationAngina - unspecified 3 - 3 In-person encounter Office Visit Chivo Gomes MD [facility] COPDTobacco abuseLeg pain, bilateral 9 - 2 In-person encounter Office Visit Antolin Brink MD [facility] Autoimmune disease, not elsewhere classified 7 - 1 In-person encounter Office Visit Antolin Brink MD [facility] Easy bruisingNeuropathyArthritisBipolar affective psychosis VITAL SIGNS Date Observation Value Provider Body Mass Index (Ratio) 30.21 kg/m2 Rosie Stinson MD blood pressure, diastolic 84 mm[Hg] Li nkLogic blood pressure, systolic 128 mm[Hg] Joana kLogic blood pressure, diastolic 84 mm[Hg] Li nkLogic blood pressure, systolic 128 mm[Hg] Joana kLogic blood pressure, diastolic 84 mm[Hg] Ca therine Sebastián blood pressure, systolic 128 mm[Hg] Cat herine Matinicus pulse rate 99 /min Alena Sebastián oxygen saturation, oximetry 96 % Alena Sebastián respiratory rate E&M 14 /min Catheri ne Matinicus weight E&M 176 [lb_av] Alena Sebastián blood pressure, cuff size regular Ca therine Matinicus height E&M 64 [in_i] Alena Sebastián Body [...] respiratory rate E&M 20 /min Pelon Alexander [facility] RN pulse rate 101 /min Pelon Patricio RN weight E&M 171 [lb_av] Pelon Particio RN Body Mass Index (Ratio) 26.95 kg/m2 [...] Edward Gregorio oxygen saturation, oximetry 98 % Cehr Gregorio respiratory rate E&M 17 /min Cher [...] Shanti Garvey oxygen saturation, oximetry 98 % Karene Garvey respiratory rate E&M 16 /min Kareen [...] hugginsmary Mena pulse rate 100 /min Yumiko Mnea oxygen saturation, oximetry 97 % Yumiko Mena [...] 3.5-5.2 5 sodium, serum 142 mmol/L [employer]ic [phone]/03/0 5 urea nitrogen/creatinin e ratio, serum 21 [...] cell distribution width, size density 52.5 fL [facility] 8 immature granulocytes, percentage of total cells, blood 0.5 % [facility] - 8 nucleated red blood cells as percent of blood leukocytes 0.0 % [facility] 8 red blood cell (erythrocyte) count, per high power field 0.0 10*3/UL [employer] - 8 eosinophils as percent of blood leukocytes 1.0 % [facility] - 8 neutrophils as percent of blood leukocytes 73.0 % [facility] - 8 Absolute Neutrophils 7.2 CELLS/UL [employer] 1.5 - 7.8 8 basophils as percent of blood leukocytes 0.8 % [facility] - 8 Absolute Basophils 0.1 CELLS/UL [employer] 0.0 - 0.2 8 monocytes as percent of blood leukocytes 5.6 % [employer] - 8 Absolute Monocytes 0.6 CELLS/UL [facility] 0.2 - 1.0 8 lymphocytes as percent of blood leukocytes 19.1 % [facility] - 8 Absolute Lymphocytes 1.9 CELLS/UL LinkLogic [...] once a day Negra Rojo Imported from [employer]: [employer] ( at 08:43:20 AM) duloxetine 60 mg capsule,delayed release(DR/EC) active Take 60 mg by mouth once a day Negra Rojo Imported from [employer]: [employer] ( at 08:43:20 AM) candesartan 8 mg tablet completed Take 1 tablet by mouth once a day - 08/22 Pelon Patricio RN Imported from [employer]: [employer] ( at 08:43:20 AM) acetaminophen 500 mg tablet active Take 1000 mg by mouth every six hours as needed Negra Rojo Imported from [employer]: [employer] ( at 08:43:20 AM) trazodone 100 mg tablet active Take 100 mg by mouth every night Negra Rojo Imported from [employer]: [employer] ( at 08:43:20 AM) Crestor 10 mg [...] morning of procedure 09/13 - 07/23 Cher Gergorio DIPHENHYDRAMINE HCL 25 MG ORAL TABLET completed [...] SOLUTION completed twice daily - 08/25 Kareen Garvey IPRATROPIUM-ALBUTE ROL 0.5-2.5 (3) MG/3ML INHALATION SOLUTION [...] Antolin Brink MD VITAMIN D TABLET completed 08328 international units once monthly - 08/25 Kareen [...] smoker Bess Miguel number of grandchildren Fausto tSinson MD social history E&M Patient tesha mercedes [...] Policy type / Coverage type Mckayla red constitution party ID ELEN MEDICAID (2) Medicaid [id number] ADVANCE DIRECTIVES Name Date DISCUSSED - NO DECISION MADE TREATMENT PLAN Date Name Performer [id number],C, B P today: 129/86 P rior BP: 107/68 (08/12/2021) Labs Reviewed: C reat: 0.86 (09/24/2018) C hol: 235 (09/24/2018) HDL: 66 (09/24/2018) Her updated medication list for this problem includes: Candesartan 8 Mg Tablet (Candesartan) ..... Take 1 tablet by mouth once a day Hydrochlorothiazide 12.5 Mg Tablet (Hydrochlorothiazide) ..... Take 1 tablet by mouth every day Fausto Stinson MD [id number],C,F INDINGS: L t Upper Ext: Triphasic waveforms [...] also do angio left upper extremity. C [facility] upper extremities arterial duplex. Had intact flow of her NAV Fausto Stinson MD [id number],C, E cho 08/18/21 C ONCLUSIONS: 1 . [...] to one of the meds given at [facility]. I discussed with her regarding cardiac cath. At present, she wouldlike to defer unless she has increased episodes of CP. WIll have her come back in a month so we can review and see if there is any sx that need to be addressed. Fausto Stinson MD [id number],C,M ay be related to low BP will check echo. Fausto Stinson MD [id number],C, H as had some workup done, does not know if she has lupus or not Fausto Stinson MD [id number],C, C heck upper extremities arterial duplex. Had intact flow of her LUE Fausto Stinson MD [id number],C,ANAPHALAXIS T O ASPIRIN Fausto Stinson MD [id number],C, S topped smoking Fausto Stinson MD [id number],C,R educed HCTZ and candisartan B P today: 107/68 P rior BP: 120/76 (05/27/2021) Labs Reviewed: C reat: 0.86 (09/24/2018) C hol: 235 (09/24/2018) HDL: 66 (09/24/2018) Her updated medication list for this problem includes: Hydrochlorothiazide 25 Mg Tablet (Hydrochlorothiazide) ..... 1 tablet once a day Candesartan 16 Mg Tablet (Candesartan) ..... Take 16 mg by mouth once a day Fausto Stinson MD [id number],S,S ays that she needs a nebulizer will see if we can arrange that Fausto Stinson MD [id number],C, H as had some workup done, does not know if she has lupus or not Fausto tSinson MD [id number],C,i ntermittent vague chest pains, will try to get her stress test, does not tolerate adenosine apparently, had issues in jill past Fausto Stinson MD [id number],C, m icrovascular disease. will arrange for her [...] Currently does not have it. Will ask [facility] to send request. May 27, 2021 S mokes 2-3 cigarettes a day Fausto Stinson MD [id number],S, S x have improved since she stopped smoking, derives benefit more so on the R leg where she has been putting her nitro patch. Advised her to split the nitro pack in half and apply to both feet. November 24, 2020 C urrently not using nitro. May 27, 2021 Needs refill on nitor pills Fausto Stinson MD [id number],C,C lelia upper extremities arterial duplex Fausto Stinson MD [id number],C, H er updated medication list for this [...] to one of the meds given at [facility]. I discussed with her regarding [...] Currently does not have it. Will ask [facility] to send request. May 27, 2021 [...] Currently does not have [facility]. [facility] Fausto Stinson MD Cardiology [...] fumarate) ..... 1 puff twice daily C[facility]rick [facility] Cardiology New Patie nt : O rders: A rterial - SENSILASE (CPT-43349) S ED RATE BY MODIFIED WESTERGREN (809) L IPID PANEL (6710) Cedrick [facility] Cardiology New Patie nt :Will order echo and regadenosine stress test. O rders: E KG (CPT-49890) C omplete Echo (CPT-58874) S TR - Adenosine (CPT-92956) Cedrick [facility] Hem/Onc:SUMMER titer 1: 160. I will check comprehensive SUMMER panel. Referal to rheumatology as above. Orders: A NA PANEL, COMPREHENSIVE (76785) A NA SCREEN REFL TO TITER, IFA (249) R heumatoid Arthritis Factor (842326) 9 9214 MOD Complex (CPT-90614) Antolin Brink MD Hem/Onc:The patient' s work up for Von Willebrand's disease was unremarkable. She was noted to have a positive SUMMER titer 1:160. I recommend referral to rheumatology for further evaluation. Orders: S NOMED-CT: [id number] Current Medications Documented (SCT-[id number]) P rotime (38065) P ARTIAL THROMBOPLASTIN TIME, ACTIVATED (763) 9 9214 MOD Complex (CPT-54552) Antolin Brink MD Hem/Onc:The patient has extensive [...] follow up. Orders: C BC (INCLUDES DIFF/PLT) (7372) S NOMED-CT: [id number] Current Medications Documented (SCT-[id number]) C RYOGLOBULIN (%CRYOCRIT), SERUM (33018) P TT+F VIII+vWF Act+vWF Ag+v... (201169) A NANO GROUP AND RH TYPE (7788) A NCA Panel (511325) A NA SCREEN IFA W/REFL TITER IFA (80563) S ED RATE BY MODIFIED KLEVER (887) 5 3649 MOD C omplex (CPT-99504) Antolin Brink MD Date Name Complete Echo [...] EKG Chivo Gomes MD complet ed SNOMED-CT: 561695386 160537 Current Medications Documented Antolin Brink MD completed SNOMED-CT: 917591712 410473 Current Medications Documented Antolin Brink MD completed
--- OUTSIDE RECORDS SUMMARY | 2024-09-02 13:15 | XMS_ITS | Continuity of Care Document ---
Author Organization [facility] Address [address] [place] [address] [address] [place] [address] Phone Care Team Providers Care Product Safety Associate Name Role Phone Gonzalez OD, Mane Unavailable Unavailable Procedures Procedure Date Eye Exam & Treatment Refraction Eye Exam & Treatment Eye Exam & Treatment Eye Exam, New Patient Advance Directives Directive Yes / No Effective Date File Name No Information Encounters Encounter Description Practice Location Reason(s) For Visit Diagnoses Date Provider Providers Copied on Encounter [facility], [address] [place] [address] [address], [place], [place], [id number], tel:[phone] SEC [facility] No Information 6-201 0 Gonzalez OD Mane. [address], [place], [place], [facility], [place]. tel:[phone] [facility], [address] [place] [address] [address], [place], [place], [address], tel:[phone] SEC [facility] No Information 1-200 9 Gonzalez OD Mane. [address], [place], [address], [place]. tel:[phone] [facility], [address] [place] [address] [address], [place], [place], [address], tel:[phone] SEC [facility] [place] No Information Oct-0 9-200 8 Gonzalez OD Mane. [address], [address], [place], [address], [place]. tel:[phone] [facility], [address], [place], [place], [address], [place] tel:[phone] SEC [facility] No Information Sep-2 8-200 7 Gonzalez OD Mane. [address], [place], [address], [place]. tel:[phone] Family History Family Member Type Diagnosis Age At Onset No Information Payers Payer name Insurance type Covered constitution party ID Authoriza tion(s) Medicaid [facility] [id number] Social History Type Description Quantity Date Captured [...]
--- OUTSIDE RECORDS SUMMARY | 2024-09-02 13:15 | XMS_ITS | Encounter Summary ---
Author Organization [facility] Address [address] [facility] [place] [address] Care Team Providers Care Investigator Utility Bill Complaints Name Role Phone Eulalia Lema DO Primary Care Provider + [phone] Eulalia Lema DO Primary Care Provider + [phone] Eulalia Lema DO Primary Care Provider [phone] Dayna Maki MD Primary Care Provider Dayna Maki MD Primary Care Provider Mj Lee MD Primary Care Provider [phone] Dayna Maki MD Unavailable [phone] Eulalia Lema DO Unavailable [phone] Dayna Maki MD Primary Care Provider Reason for Visit * Reason Onset Date Comments MEDICATION REFILL 02/14/2018 refill request Encounter Details Date Type Department Care Team (Late st Contact Info) Description 02/14/2018 Refill [facility] General Internal Medicine [address] [facility] [address] [place] [address] Eulalia Lema DO [address] [facility] [address] MEDICATION REFILL (refill request ) [...] documented as of this encounter Care Teams Investigator Utility Bill Complaints Relationship Specialty Start Date End Date Eulalia Lema DO PCP - General 02/14/18 02/14/18 Eulalia Lema DO PCP - General 02/15/18 02/17/18 Eulalia Lema DO PCP - General 02/18/18 03/20/18 Dayna Maki MD PCP - General 03/21/18 12/21/20 Dayna Maki MD PCP - General Internal Medicine 12/22/20 12/22/20 Mj Lee MD [address] [place] [address] PCP - General Internal Medicine 12/23/20 12/23/20 Dayna Maki MD [address] [place] [address] PCP - General 12/24/20 Dayna Maki MD 12/22/20 Eulalia Lema DO Resident - PCP Internal Medicine 02/15/18 documented as of this encounter
--- OUTSIDE RECORDS SUMMARY | 2024-09-02 13:15 | XMS_ITS | Clinical Summary ---
Author Organization [facility] Address [address] [place] [address] Care Team Providers Care Securities Broker Name Role Phone Unavailable Primary Care Provider [...] (198 lb 6.1 oz) 09/13/2016 9:17 AM STUMP SHOOTER Height 162.6 cm (5' 4 ) 09/13/2016 9:17 AM STUMP SHOOTER Body Mass Index 34.05 09/13/2016 9:17 AM STUMP SHOOTER Plan of Treatment Health Maintenance Due Date [...] Documents on File Type Date Recorded Patient Professional Services Specialist Expl anation Advance Directives and Sofi mcgowan Will 12/15/[address] LIAISON
--- OUTSIDE RECORDS SUMMARY | 2024-09-02 13:15 | XMS_ITS | Clinical Summary ---
Author Organization [facility] Address [address] [place] [address] Phone Care Team Providers Care Outside Contractor Sales Name Role Phone Mj Lee MD Primary [...] Vaccine (#1) 2024 04/22/2015, 2012 Care Teams Outside Contractor Sales Relationship Specialty Start Date End Date Mj Lee MD [address] [place] [address] PCP - General Family Medicine 02/04/20
--- OUTSIDE RECORDS SUMMARY | 2024-09-02 13:15 | XMS_ITS | Encounter Summary ---
Author Organization [facility] Address [facility] [facility] [place] [address] Care Team Providers Care Continuous Improvement Facilitator Name Role Phone Eulalia Lema DO Primary Care Provider [phone] Dayna Maki MD Primary Care Provider Dayna Maki MD Primary Care Provider Mj Lee MD Primary Care Provider [phone] Dayna Maki MD Unavailable Eulalia Lema DO Unavailable [phone] Dayna Maki MD Primary Care Provider Reason for Visit * Reason Onset Date Comments Concerns 02/18/2018 1st attempt to c ontact and R/O triage for ACS LM Encounter Details Date Type Department Care Team (Late st Contact Info) Description 02/18/2018 Telephone [facility] General Internal Medicine [address] [address] Eulalia Lema DO [address] [facility] [place] [address] Concerns (1st attempt to contact [...] for reports black stools. Left message @ [phone] with affiliation and contact number, , no [...] AM CDT PT: Hung Melinda Marguerite PH: [phone] Patient called in concerned about the lisinopril [...] documented as of this encounter Care Teams Continuous Improvement Facilitator Relationship Specialty Start Date End Date Eulalia Lema DO PCP - General 02/18/18 03/20/18 Dayna Maki MD PCP - General 03/21/18 12/21/20 Dayna Maki MD PCP - General Internal Medicine 12/22/20 12/22/20 Mj Lee MD [address] [place] [address] PCP - General Internal Medicine 12/23/20 12/23/20 Dayna Maki MD [address] [place] [address] PCP - General 12/24/20 Dayna Maki MD 12/22/20 Eulalia Lema DO Resident - PCP Internal Medicine 02/15/18 documented as of this encounter
--- OUTSIDE RECORDS SUMMARY | 2024-09-02 13:16 | XMS_ITS | Encounter Summary ---
Author Organization [facility] Address [facility] [facility] [place] [address] Care Team Providers Care Ceo Na Name Role Phone Eulalia Lema DO Primary Care Provider [phone] Dayna Maki MD Primary Care Provider Dayna Maki MD Primary Care Provider Mj Lee MD Primary Care Provider [phone] Dayna Maki MD Unavailable [phone] Eulalia Lema DO Unavailable [phone] Dayna Maki MD Primary Care Provider Encounter Details Date Type Department Care Team (Late [facility]) Description 03/07/2018 Telephone [facility] General Internal Medicine [address] [address] Eulalia Lema DO [address] [facility] [place] [address] Social History Tobacco Use Types [...] documented as of this encounter Care Teams Ceo Na Relationship Specialty Start Date End Date Eulalia Lema DO PCP - General 02/18/18 03/20/18 Dayna Maki MD PCP - General 03/21/18 12/21/20 Dayna Maki MD PCP - General Internal Medicine 12/22/20 12/22/20 Mj Lee MD [address] [place] [address] PCP - General Internal Medicine 12/23/20 12/23/20 Dayna Maki MD [address] [place] [address] PCP - General 12/24/20 Dayna Maki MD 12/22/20 Eulalia Lema DO Resident - PCP Internal Medicine 02/15/18 documented as of this encounter
--- OUTSIDE RECORDS SUMMARY | 2024-09-02 13:16 | XMS_ITS | Encounter Summary ---
Author Organization [facility] Address [facility]3 [facility] [place] [address] Care Team Providers Care Tutoring Manager Name Role Phone Dayna Maki MD Primary Care Provider Dayna Maki MD Primary Care Provider Mj Lee MD Primary Care Provider [phone] Dayna Maki MD Unavailable [phone] Eulalia Lema DO Unavailable [phone] Dayna Maki MD Primary Care Provider Reason for Visit * Reason Onset Date Comments General 04/05/2018 pt is waiting fo r a call back when her test is scheduled Encounter Details Date Type Department Care Team (Late st Contact Info) Description 04/05/2018 Telephone [facility] General Internal Medicine [address] [facility] [address] [place] [address] Dayna Maki MD [address] [facility] [address] [place] [address] General (pt is waiting for [...] documented as of this encounter Care Teams Tutoring Manager Relationship Specialty Start Date End Date Dayna Maki MD PCP - General 03/21/18 12/21/20 Dayna Maki MD PCP - General Internal Medicine 12/22/20 12/22/20 Mj Lee MD [address] [place] [address] [place] [address] PCP - General Internal Medicine 12/23/20 12/23/20 Dayna Maki MD [address] [place] [address] [place] [address] PCP - General 12/24/20 Dayna Maki MD 12/22/20 Eulalia Lema DO [address] [facility] [place] [address] Resident - PCP Internal Medicine 02/15/18 documented as of this encounter
--- OUTSIDE RECORDS SUMMARY | 2024-09-02 13:16 | XMS_ITS | Clinical Summary ---
Author Organization [facility] Address [address] [facility] [place] [address] Care Team Providers Care Cable Engineer Outside Plant Name Role Phone Dayna Maki MD Unavailable [phone] Eulalia Lema DO Unavailable [phone] Dayna Maki MD Primary Care Provider Source Comments [facility],non-owned Affiliates and Associated Physician Practices is amultiple site organization consisting of ambulatory clinics and hospital sitesin [place], [place] and [place]. This disclosure is being madepursuant to the Care Everywhere program and may not contain all information available regarding this patient. Last updated 18.[facility] Allergies Active Allergy Reactions Criticality Noted Date [...] HEPATITIS C ANTIBODY Routine 07/19/2016 10:05 AM NOC ANALYST from Last 3 Months or Most Recently Relevant to Health Maintenance Results * GLUCOSE - POINT OF CARE (12/23/2020 4:04 AM CDT) Glucose WB/POC 111 70 - 115 mg/dL 12/23/2020 4:09 AM T [facility] Specimen Type Arterial/C apillary 12/23/2020 4:09 AM T [facility] Blood BLOOD SPECIMEN / Unknown 12/23/2020 4:04 AM CDT 12/23/2020 4:09 AM CDT Sung Ledezma MD LAB - POINT OF CARE ORDERABLES Performing Organization Address [facility]/ZIP Co de Phone Number [address] [address], [facility] [phone] * (ABNORMAL) LIPID PROFILE (12/22/2020 9:55 PM CDT) Cholesterol Total 225(H) <200 mg/dL 12/22/2020 10:37 PM [facility] HDL 31(L) >40 mg/dL 12/22/2020 10:37 PM [facility] Comment: ATP III Classification of HDL Cholesterol: <40 mg/dL: Considered a major risk factor. >60 mg/dL: Considered a negative risk factor. LDL Calculated 120(H) <100 mg/dL 12/22/2020 10:37 PM [facility] Comment: ATP III Classification of LDL Cholesterol: <100 mg/dL: Optimal 100 - 129 mg/dL: Near Optimal/Above Optimal 130 - 159 mg/dL: Borderline High 160 - 189 mg/dL: High >190 mg/dL: Very High Triglycerides 371(H) <150 mg/dL 12/22/2020 10:37 PM [facility] Comment: ATP III Classification of Triglycerides: <150 mg/dL: Normal 150 - 199 mg/dL: Borderline High 200 - 400 mg/dL: High >500 mg/dL: Very High Blood BLOOD SPECIMEN / Unknown Venipuncture / Unknown 12/22/2020 9:55 PM CDT 12/22/2020 10:23 PM CDT Sima gAuirre MD LAB - CHEMISTRY ORDPedro MARTINEZ [facility] [address] [place] [phone] [phone] * HIV-1 HIV-2 ANTIGEN/ANTIBODY (02/22/2018 1:00 PM CDT) Pathologist [facility] HIV Antigen/Antibod y 1 & 2 Non-reacti ve Non-react [place] 02/22/2018 2:34 PM CDT [facility] Comment: Neither HIV-1 p24 Antigen nor HIV-1/HIV-2 Antibodies are detected. Blood BLOOD SPECIMEN / Unknown Lab Venipuncture / Unknown 02/22/2018 1:00 PM CDT 02/22/2018 1:15 PM CDT Eulalia Lema DO LAB - HEMATOLOGY O RDERABLES Performing Organization Address [facility]/ZIP Co de Phone Number [address] [phone] * HEPATITIS C ANTIBODY (07/19/2016 10:05 AM NOC ANALYST) Pathologist [facility] Hepatitis C Antibody Non-react [place] Non-reac tive [facility] Comment: Hepatitis C Antibody screen indicates no serologic evidence of past or current infection with Hepatitis C Virus. Patients with unexplained liver disease who are immunocompromised or suspected of having acute Hepatitis C infection may benefit from Nucleic Acid Test (MILADIS) for Hepatitis C Viral RNA to confirm Hepatitis C status. Blood specimen (specimen) BLOOD SPECIMEN / Unknown 07/19/2016 10:05 AM NOC ANALYST 07/19/2016 10:05 AM NOC ANALYST Leanne Hatfield MD LAB - CHEMISTR Y ORDERABLES Performing Organization Address [facility]/ZIP Co de Phone Number [address] [phone] from Last 3 Months or Most Recently Relevant to Health Maintenance Advance Directives * Full Code (Latest Code Status on File) Date Activated Date Inactivated Comments 12/22/2020 6:40 PM 12/23/2020 1:04 PM * Full Code Date Activated Date Inactivated Comments 09/02/2020 11:16 PM 09/04/2020 2:09 PM Care Teams Cable Engineer Outside Plant Relationship Specialty Start Date End Date Dayna Maki MD PCP - General 12/24/20 Dayna Maki MD 12/22/20 Eulalia Lema DO Resident - PCP Internal Medicine 02/15/18
--- OUTSIDE RECORDS SUMMARY | 2024-09-02 13:16 | XMS_ITS | Encounter Summary ---
Author Organization [facility] Address [facility]3 [place] [address] Care Team Providers Care Stone And Plate Preparer Apprentice Name Role Phone Eulalia Lema DO Primary Care Provider [phone] Dayna Maki MD Primary Care Provider Dayna Maki MD Primary Care Provider Mj Lee MD Primary Care Provider [phone] Dayna Maki MD Unavailable Eulalia Lema DO Unavailable Dayna Maki MD Primary Care Provider Reason for Visit * Reason Onset Date Comments Appointment 03/04/2018 refused by dinorah nt Results 03/04/2018 1st attempt to c ontact patient to notify of lab results Encounter Details Date Type Department Care Team (Late st Contact Info) Description 03/04/2018 Telephone [facility] General Internal Medicine [address] [facility] [address] [place] [address] Eulalia Lema DO [address] [facility] [place] [address] Appointment (refused by patient); Results [...] need her to go back to the guidance counselor clinic. ? * Telephone Encounter - Sylvie [...] need her to go back to the guidance counselor clinic. * Telephone Encounter - Catalina Montoya - 03/04/2018 1:56 PM CDT Pt called in and scheduled appt with Dr. Slater for March 20, 2018 at 3:00 PM * Telephone Encounter - Leena Berger - 03/04/2018 1:19 PM CDT Pt: Melinda Edouard#: [id number] Pt calling in response to past attempts [...] documented as of this encounter Care Teams Stone And Plate Preparer Apprentice Relationship Specialty Start Date End Date Eulalia Lema DO PCP - General 02/18/18 03/20/18 Dayna Maki MD PCP - General 03/21/18 12/21/20 Dayna Maki MD PCP - General Internal Medicine 12/22/20 12/22/20 Mj Lee MD [address] [place] [address] [place] [address] PCP - General Internal Medicine 12/23/20 12/23/20 Dayna Maki MD [address] [place] [address] [place] [address] PCP - General 12/24/20 Dayna Maki MD 12/22/20 Eulalia Lema DO Resident - PCP Internal Medicine 02/15/18 documented as of this encounter
--- OUTSIDE RECORDS SUMMARY | 2024-09-02 13:16 | XMS_ITS | Referral Summary ---
Author Organization [facility] [address] [facility] [address] Address [address] [place] [address] Phone Care Team Providers Care Pig Iron Loader Name Role Phone Mj Lee MD Primary Care Provider [phone] Allergies Active Allergy Reactions Criticality Noted Date Comments Aspirin Anaphylaxis High 03/01/2015 Anaphylaxis Meloxicam Anaphylaxis High 03/01/2018 [place]-3 Fatty Acids Anaphylaxis,Hives High 8 Other Anaphylaxis [...] on file Legal Sex Female 10:09 PM PALS SPECIALIST Gender Identity Not on file Sexual Orientation [...] Plan of Treatment Not on file Insurance [address] [id number] [facility] Care Teams Pig Iron Loader Relationship Specialty Start Date End Date Mj Lee MD [address] [facility] [place] [place] [address] PCP - General Internal Medicine 12/17/20
--- OUTSIDE RECORDS SUMMARY | 2024-09-02 13:16 | XMS_ITS | Clinical Summary ---
Author Organization [facility] [address] [facility] [address] Address [address] [place] [address] Phone Care Team Providers Care Grain Drier Name Role Phone Mj Lee MD Primary Care Provider [phone] Allergies Active Allergy Reactions Criticality Noted Date Comments Aspirin Anaphylaxis High 03/01/2015 Anaphylaxis Meloxicam Anaphylaxis High 03/01/2018 [place]-3 Fatty Acids Anaphylaxis,Hives High 8 Other Anaphylaxis [...] on file Legal Sex Female 10:09 PM ALLEY CLEANER Gender Identity Not on file Sexual Orientation [...] Plan of Treatment Not on file Insurance [facility] Care Teams Grain Drier Relationship Specialty Start Date End Date Mj Lee MD [address] [facility] [place] [id number] PCP - General Internal Medicine 12/17/20
--- OUTSIDE RECORDS SUMMARY | 2024-09-02 13:16 | XMS_ITS | Referral Summary ---
Author Organization [facility] Address [address] [facility] [place] [address] Care Team Providers Care Sales Ledger Administrator Name Role Phone Dayna Maki MD Unavailable [phone] Eulalia Lema DO Unavailable [phone] Dayna Maki MD Primary Care Provider Source Comments [facility],non-owned Affiliates and Associated Physician Practices is amultiple site organization consisting of ambulatory clinics and hospital sitesin [place], [place], [place] and [place]. This disclosure is being madepursuant to the Care Everywhere program and may not contain all information available regarding this patient. Last updated 18.[facility] Allergies Active Allergy Reactions Criticality Noted Date [...] HEPATITIS C ANTIBODY Routine 07/19/2016 10:05 AM MANUAL ARTS TEACHER from Last 3 Months or Most Recently Relevant to Health Maintenance Results * GLUCOSE - POINT OF CARE (12/23/2020 4:04 AM CDT) Glucose WB/POC 111 70 - 115 mg/dL 12/23/2020 4:09 AM CDT [facility] Specimen Type Arterial/C apillary 12/23/2020 4:09 AM CDT [facility] Blood BLOOD SPECIMEN / Unknown 12/23/2020 4:04 AM CDT 12/23/2020 4:09 AM CDT Sung Ledezma MD LAB - POINT OF CARE ORDERABLES Performing Organization Address City/State/[facility] Co de Phone Number [facility] [address] [place] [phone], [facility] [phone] * (ABNORMAL) LIPID PROFILE (12/22/2020 9:55 PM CDT) Cholesterol Total 225(H) <200 mg/dL 12/22/2020 10:37 PM CDT [facility] HDL 31(L) >40 mg/dL 12/22/2020 10:37 PM CDT [facility] Comment: ATP III Classification of HDL Cholesterol: <40 mg/dL: Considered a major risk factor. >60 mg/dL: Considered a negative risk factor. LDL Calculated 120(H) <100 mg/dL 12/22/2020 10:37 PM CDT [facility] Comment: ATP III Classification of LDL Cholesterol: <100 mg/dL: Optimal 100 - 129 mg/dL: Near Optimal/Above Optimal 130 - 159 mg/dL: Borderline High 160 - 189 mg/dL: High >190 mg/dL: Very High Triglycerides 371(H) <150 mg/dL 12/22/2020 10:37 PM CDT [facility] Comment: ATP III Classification of Triglycerides: <150 mg/dL: Normal 150 - 199 mg/dL: Borderline High 200 - 400 mg/dL: High >500 mg/dL: Very High Blood BLOOD SPECIMEN / Unknown Venipuncture / Unknown 12/22/2020 9:55 PM CDT 12/22/2020 10:23 PM CDT Sima Aguirre MD LAB - CHEMISTRY MARU MARTINEZ Performing Organization Address City/[facility]/ZIP Co de Phone Number [facility] [address] [place] [address], [facility] [phone] * HIV-1 HIV-2 ANTIGEN/ANTIBODY (02/22/2018 1:00 PM CDT) HIV Antigen/Antibod y 1 & 2 Non-reacti ve Non-react [place] 02/22/2018 2:34 PM CDT [facility] Comment: Neither HIV-1 p24 Antigen nor HIV-1/HIV-2 Antibodies are detected. Blood BLOOD SPECIMEN / Unknown Lab Venipuncture / Unknown 02/22/2018 1:00 PM CDT 02/22/2018 1:15 PM CDT Eulalia Lema DO LAB - HEMATOLOGY O RDERABLES Performing Organization Address [facility]/ZIP Co de Phone Number [facility] [address] [place] [address], [facility] [phone] * HEPATITIS C ANTIBODY (07/19/2016 10:05 AM MANUAL ARTS TEACHER) Hepatitis C Antibody Non-react [place] Non-reac tive [facility] Comment: Hepatitis C Antibody screen indicates no serologic evidence of past or current infection with Hepatitis C Virus. Patients with unexplained liver disease who are immunocompromised or suspected of having acute Hepatitis C infection may benefit from Nucleic Acid Test (MILADIS) for Hepatitis C Viral RNA to confirm Hepatitis C status. Blood specimen (specimen) BLOOD SPECIMEN / Unknown 07/19/2016 10:05 AM MANUAL ARTS TEACHER 07/19/2016 10:05 AM MANUAL ARTS TEACHER Leanne Hatfield MD LAB - CHEMISTR Y ORDERABLES [address] [phone] from Last 3 Months or Most Recently Relevant to Health Maintenance Advance Directives * Full Code (Latest Code Status on File) Date Activated Date Inactivated Comments 12/22/2020 6:40 PM 12/23/2020 1:04 PM * Full Code Date Activated Date Inactivated Comments 09/02/2020 11:16 PM 09/04/2020 2:09 PM Care Teams Sales Ledger Administrator Relationship Specialty Start Date End Date Dayna Maki MD PCP - General 12/24/20 Dayna Maki MD 12/22/20 Eulalia Lema DO Resident - PCP Internal Medicine 02/15/18
--- OUTSIDE RECORDS SUMMARY | 2024-09-02 13:16 | XMS_ITS | Clinical Summary ---
Author Organization [facility] Address [address] [place] [address] Phone Care Team Providers Care Stockholder Name Role Phone Unavailable Primary Care Provider Unavailabl e Allergies Active Allergy Reactions Criticality Noted Date Comments Adhesive Tape Rash,Other (see Comments) High 03/16/2017 Pulls off her skin Aspirin Anaphylaxis,Unknown High 03/16/2017 Iodinated Contrast Media Anaphylaxis,Unknown High 03/16/2017 [place]-3 Fatty Acids Anaphylaxis High 11/06/2017 Meloxicam-Liniment Anaphylaxis [...] Recently Relevant to Health Maintenance Insurance MEDICAID [place]
--- OUTSIDE RECORDS SUMMARY | 2024-09-02 13:16 | XMS_ITS | Encounter Summary ---
Author Organization [facility] Address [facility] [place] [address] Care Team Providers Care Pumper Gager Apprentice Name Role Phone Eulalia Lema DO Primary Care Provider [phone] Dayna Maki MD Primary Care Provider Dayna Maki MD Primary Care Provider Mj Lee MD Primary Care Provider [phone] Dayna Maki MD Unavailable Eulalia Lema DO Unavailable [phone] Dayna Maki MD Primary Care Provider Reason for Visit * Reason Onset Date Comments Medication Issue 03/11/2018 Follow-up 03/14/2018 1st attempt to r each patient to relay message from Encounter Details Date Type Department Care Team (Late st Contact Info) Description 03/11/2018 Telephone [facility] General Internal Medicine [address] [facility] [address] [place] [address] Eulalia Lema DO [address] [facility] [place] [address] Medication Issue; Follow-up (1st attempt [...] documented as of this encounter Care Teams Pumper Gager Apprentice Relationship Specialty Start Date End Date Eulalia Lema DO PCP - General 02/18/18 03/20/18 Dayna Maki MD PCP - General 03/21/18 12/21/20 Dayna Maki MD PCP - General Internal Medicine 12/22/20 12/22/20 Mj Lee MD [address] [place] [address] PCP - General Internal Medicine 12/23/20 12/23/20 Dayna Maki MD [address] [place] [address] PCP - General 12/24/20 Dayna Maki MD 12/22/20 Eulalia Lema DO Resident - PCP Internal Medicine 02/15/18 documented as of this encounter
--- OUTSIDE RECORDS SUMMARY | 2024-09-02 13:16 | XMS_ITS | Encounter Summary ---
Author Organization [facility] Facility Care Team Providers Care Manager Ct Name Role Phone No, Physician Primary Care Provider [phone] Mj Lee MD Primary Care Provider [phone] Encounter Details Date Type Department Care Team (Latest Contact Info) Description 09/05/2016 Orders Only [facility]INCONV Provider, MD [place] [address] [place] [address] Social History Tobacco Use Types Packs/Day Years Used Date Smoking Tobacco: Never Assessed Comments Unknown Sex and Gender Information Value Date Recorded Sex Assigned at Not on file Legal Sex Female 10:09 PM SPECIAL WEAPONS AND TACTICS OFFICER Gender Identity Not on file Sexual Orientation Not on file documented as of this encounter Plan of Treatment Not on file documented as of this encounter Procedures Procedure Name Priority Date/Time Associated Diagnosis Comments CARDIOLOGY REPORT 09/05/2016 12: 00 AM SPECIAL WEAPONS AND TACTICS OFFICER documented in this encounter Results * CARDIOLOGY REPORT (09/05/2016 12:00 AM SPECIAL WEAPONS AND TACTICS OFFICER) Anatomical Region Laterality Modality Other Narrative 09/05/2016 12:00 AM SPECIAL WEAPONS AND TACTICS OFFICER Ordered by an unspecified provider. us Historical Provider [facility] KAREN ALANIS Final Result documented in this encounter Visit Diagnoses Not on filedocumented in this encounter Care Teams Manager Ct Relationship Specialty Start Date End Date No, Physician PCP - General 06/10/18 12/16/20 Mj Lee MD [address] [place] [address] [place] [address] PCP - General Internal Medicine 12/17/20 documented as of this encounter
--- OUTSIDE RECORDS SUMMARY | 2024-09-02 13:16 | XMS_ITS | Encounter Summary ---
Author Organization [facility] Address [facility]3 [facility] [place] [address] Care Team Providers Care Vascular Technologist Name Role Phone Eulalia Lema DO Primary Care Provider [phone] Dayna Maki MD Primary Care Provider Dayna Maki MD Primary Care Provider Mj Lee MD Primary Care Provider [phone] Dayna Maki MD Unavailable Eulalia Lema DO Unavailable [phone] Dayna Maki MD Primary Care Provider Reason for Visit * Reason Onset Date Comments Results 03/01/2018 Encounter Details Date Type Department Care Team (Late st Contact Info) Description 03/01/2018 Telephone [facility] General Internal Medicine [address] [facility] [address] [place] [address] Eulalia Lema DO [address] [facility] [place] [address] Results Social History Tobacco Use [...] documented as of this encounter Care Teams Vascular Technologist Relationship Specialty Start Date End Date Eulalia Lema DO PCP - General 02/18/18 03/20/18 Dayna Maki MD PCP - General 03/21/18 12/21/20 Dayna Maki MD PCP - General Internal Medicine 12/22/20 12/22/20 Mj Lee MD [address] [place] [address] PCP - General Internal Medicine 12/23/20 12/23/20 Dayna Maki MD [address] [place] [address] [place] [address] PCP - General 12/24/20 Dayna Maki MD 12/22/20 Eulalia Lema DO Resident - PCP Internal Medicine 02/15/18 documented as of this encounter
--- OUTSIDE RECORDS SUMMARY | 2024-09-02 13:16 | XMS_ITS | Continuity of Care Document ---
Author Organization [facility] Address [address] [facility] [place] [facility] [place] [address] Phone Care Team Providers Care Cleaner And Trimmer Name Role Phone Carloz Land MD Unavailable [...] Diagnoses Date Provider Providers Copied on Encounter [facility], [address], [place], [place], [id number], [place] tel:[phone] [facility] No Information 8 Emery Carty. [address], [place], [place], [id number] , [place]. tel:[phone] OFFICE/OUTPA TIENT VISIT, EST [facility], [address], [place], [place], [id number], tel:[phone] [facility] COPD1 (chief complaint) foot pain1 (chief complaint) constipati on (chief complaint) Pain in unspecified footEmphysemaNeurop athyConstipationGen eralized Anxiety Disorder 8 Emery Edwards [address], [place], [place], [id number] , [place]. tel:[phone] Referring Provider: Alesha Dickson [facility] [address], [place], [place], [id number]. tel:[phone] OFFICE/OUTPA TIENT VISIT, EST [facility], [address], [place], [place], [id number], [place] tel:[phone] [facility] sick1 (chief complaint) COPD1 (chief complaint) constipati on1 (chief complaint) EmphysemaConstipati onEssential (primary) hypertensionPneumon ia 8 Emery Edwards [address], [place], [place], [id number] , [place]. tel:[phone] Referring Provider: Alesha Dickson [address], [place], [place], [id number]. tel:[phone] OFFICE/OUTPA TIENT VISIT, EST [facility], [address], [place], [place], [id number], [place] tel:[phone] [facility] foot pain1 (chief complaint) lumbago1 (chief complaint) weight loss1 (chief complaint) NeuropathyPain in unspecified lower legConstipationAbno rmal weight loss 8 Emery Edwards [address] [facility] [place], [id number] , [place]. tel:[phone] Referring Provider: Carloz Land, Alesha [facility] [place], [id number]. tel:[phone] PREV VISIT, NEW, AGE 40-64 [facility], [address], [place], [place], [id number], [place] tel:[phone] [facility] Medicine PHysical (chief complaint) Encounter for general adult medical exam w abnormal findingsEssential (primary) hypertensionNeuropa thyEmphysemaAbnorma l weight loss 8 Emery Carty. [address], [place], [address] , [place]. tel:[phone] Referring Provider: Carloz Land, A[place]ha [place], [id number]. tel:[phone] Family History Family Member Type Diagnosis Age At Onset Mother Problem (finding) Renal disease Mother Problem (finding) Coronary artery disease 56 Brother Problem (finding) murdered Mother Problem (finding) Diabetes mellitus Sister Problem (finding) Alive and well Father Problem (finding) colon [place] Payers Payer name Insurance type Covered libertarian ID Authoriza tion(s) No Information Social History Type Description Quantity Date Captured Comments Sex Female Smoking Status No Information Chief Complaint And Reason For Visit No Information Plan Of Treatment Date Type Action Status Goal Tobacco cessation counseling completed Referral Ordered: Pulmonology (related to Emphysema) ordered Referral Ordered: Cardiology (related to Pain in unspecified foot) ordered Referral Ordered: Referrals: Pulmonology. Evaluate and treat ordered Referral Ordered: Referrals: Cardiology. Evaluate and treat ordered Referral Ordered: DAKOTA DEJESUS -[facility] Service Providers : Legend Maker (related to Pain in unspecified lower leg) ordered Referral Ordered: ANKLE XRAY, 3+ VIEWS ordered Referral Ordered: [place] ARTERIAL DOPPLER ordered Referral Referred To: DAKOTA DEJESUS [address] [place] [address],[address] [place], [place], [phone] Ordered: Referrals: Podiatric Medicine & Surgery Service Providers : Legend Maker. DAKOTA DEJESUS. Evaluate and treat ordered Referral [...] sob or coughing or any chest pain foot pain1 Pt has bilateral foot/ankle pain. Foot doctor told her to see vascular specialist per patient. She has some heel spur bilaterally, Pt has ? numbness and pain both ankle and foot area. Her arterial doppler is normal recently. constipation Additional infor mation: Pt has chronic constipation Pt takes senna daily. Pt told me she does NOT want to see Dr matute for colonoscopy. . Pt denies any blood in stool. sick1 Pt c/o productiv e coughing with purulent drainage, sinus congestion, ear pain, running nose with sinus congestion for 10 days. Pt does have worsening sob. Pt denies any chest pain. pt lost her voices recently. Pt coughs worse when she lies down Pt had subjective fever last week but currently no fever. COPD1 Pt has COPD. pt uses proair daily. pt denies any worsening sob Pt had LDCT done which showed ground glass appearance, which is new since her CT scan 2008. Pt denies any acute sob constipation1 Pt has chronic c onstipation. Pt has dewayne with GI in 2 weeks. Pt needs senna refilled. foot pain1 Pt has chronic b ilateral [...] Pt denies any recent travel or bedrest lumbago1 pt has chronic l ow back [...] Pt denies any loss of bladder control weight loss1 Pt has lost over 50 pounds since year Pt denies any GERD Pt denies any appetite loss Pt does have chronic constipation. Pt refused appointment with GI? PHysical Pt needs annual physical. Pt is [...] also was told she has lupus but pot room tapper told her she does not have lupus.. [...]
--- OUTSIDE RECORDS SUMMARY | 2024-09-02 13:16 | XMS_ITS | Patient Health Summary ---
Author Organization [facility] Address [address] [facility] [place] [address] Care Team Providers Care Manager Decision Support Name Role Phone Dayna Maki MD Unavailable [phone] Eulalia Lema DO Unavailable [phone] Dayna Maki MD Primary Care Provider Note from [facility],non-owned Affiliates and Associated Physician Practices is amultiple site organization consisting of ambulatory clinics and hospital sitesin [place], [place], [place] and [place]. This disclosure is being madepursuant to the Care Everywhere program and may not contain all information available regarding this patient. Last updated 18.[facility] Allergies * Aspirin(Unknown) * Aspirin(Anaphylaxis,Unknown) -High [...] abuse (HCC), Tobacco abuse, Joint swelling * NEON GLASS BENDER ANTIBODY(Performed 02/22/2018) Performed for Chronic obstructive pulmonary [...] * SCLERODERMA 70 (SCL) ANTIBODY(Performed 07/19/2016) * NEON GLASS BENDER ANTIBODY(Performed 07/19/2016) * CARDIOLIPIN ANTIBODY IGM(Performed 07/19/2016) [...] - 115 mg/dL 12/23/2020 4:09 AM CDT [facility] Specimen Type Arterial/C apillary 12/23/2020 4:09 AM CDT [facility] Blood BLOOD SPECIMEN / Unknown 12/23/2020 4:04 AM CDT 12/23/2020 4:09 AM CDT Sung Ledezma MD LAB - POINT OF CARE ORDERABLES Performing Organization Address [facility]/ZIP Co de Phone Number [address] [address], [facility] [phone] * TROPONIN I (12/23/2020 12:10 AM CDT) Only the most recent of4 resultswithin the time period is included. Troponin I <0.010 <0.032 ng/mL 12/23/2020 12:44 AM CDT [facility] Blood BLOOD SPECIMEN / Unknown Venipuncture / Unknown 12/23/2020 12:10 AM CDT 12/23/2020 12:13 AM CDT Sima Aguirre MD LAB - CHEMISTRY MARU MARTINEZ [address] [address], [place] [phone] * (ABNORMAL) URINALYSIS REFLEX TO MICROSCOPIC NO CULTURE (12/22/2020 10:02 PM CDT) Color UA Yellow Straw, Yellow 12/22/2020 10:24 PM CDT [facility] Clarity UA Slt Cloudy(A) Clear 12/22/2020 10:24 PM [facility] Specific [place] UA 1.039(H) 1.005 - 1.030 12/22/2020 10:24 PM [facility] pH UA 5.0 5.0 - 8.0 pH 12/22/2020 10:24 PM [facility] Protein UA Negative Negative 12/22/2020 10:24 PM [facility] Glucose UA Negative Negative 12/22/2020 10:24 PM [facility] Ketone UA Negative Negative 12/22/2020 10:24 PM [facility] Bilirubin UA Negative Negative 12/22/2020 10:24 PM [facility] Blood UA Negative Negative 12/22/2020 10:24 PM [facility] Nitrite UA Negative Negative 12/22/2020 10:24 PM [facility] Leukocyte Esterase 2+(A) Negative 12/22/2020 10:24 PM [facility] Urobilinogen UA Negative Negative mg/dL 12/22/2020 10:24 PM [facility] RBC UA 3-5 None Seen, 0-2, 3-5 /HPF 12/22/2020 10:24 PM [facility] WBC UA 11-20(A) None Seen, 0-5 /HPF 12/22/2020 10:24 PM [facility] Bacteria UA Trace(A) None /HPF 12/22/2020 10:24 PM [facility] Squamous Epithelial Cells UA >20(A) None Seen, 0-2, 3-5 /HPF 12/22/2020 10:24 PM [facility] Renal Epithelial Cells UA 0-2(A) None Seen /HPF 12/22/2020 10:24 PM [facility] Mucus UA 2+ /LPF 12/22/2020 10:24 PM [facility] Urine URINE SPECIMEN OBTAINED BY CLEAN CATCH PROCEDURE / Unknown Collection / Unknown 12/22/2020 10:02 PM CDT 12/22/2020 10:15 PM CDT [facility] - 12/22/2020 10:24 PM T Sima Aguirre MD LAB - URINALYSIS ORD ERABLES [facility] [address] [place] [address], [facility] [phone] * URINE DRUG SCREEN IMMUNOASSAY (12/22/2020 10:02 PM CDT) Amphetamines Screen Urine Negative Negative: < 1000 ng/mL 12/23/2020 12:36 AM [facility] Barbiturates Screen Urine Negative Negative: < 200 ng/mL 12/23/2020 12:36 AM [facility] Benzodiazepine Screen Urine Negative Negative: < 200 ng/mL 12/23/2020 12:36 AM [facility] Opiates Urine Negative Negative: < 300 ng/mL 12/23/2020 12:36 AM [facility] Cocaine Metabolites Urine Negative Negative: < 300 ng/mL 12/23/2020 12:36 AM [facility] Phencyclidine Screen Urine Negative Negative: < 25 ng/ml 12/23/2020 12:36 AM [facility] Cannabinoids Screen Urine Negative Negative: <50 ng/mL 12/23/2020 12:36 AM [facility] Methadone Screen Urine Negative Negative: < 300 ng/mL 12/23/2020 12:36 AM [facility] Fentanyl Screen Urine Negative Negative: <1.0 ng/mL 12/23/2020 12:36 AM [facility] Urine URINE / Unknown Collection / Unknown 12/22/2020 10:02 PM CDT 12/23/2020 12:[facility] 12/[facility]/2020 12:36 AM CDT The Urine Toxicology Screening Panel does not screen for Propoxyphene, Meprobamate, Carisoprodol, Trazodone, nzyx-kjh-akarphb medications and/or volatiles (Acetone, Isopropanol, Methanol or Ethylene Glycol). Ethanol, Salicylate, Acetaminophen, Tricyclic Antidepressants and several therapeutic drugs may be individually assayed in serum or plasma specimen. Toxicology testing by the [facility] is an aid to medical diagnosis and treatment of patients. No documented chain of custody was maintained. Results are intended to be used for clinical purposes only. Sung C Edgell MD LAB - URINE CHEMISTR Y ORDERABLES [facility] [address] [place] [address], [facility] [phone] * BLOOD TYPE VERIFICATION (12/22/2020 9:55 PM CDT) ABO Rh O POS 12/22/2020 10:50 PM CDT [facility] B[facility] LAB Blood Bank BLOOD SPECIMEN / Unknown Venipuncture / Unknown 12/22/2020 9:55 PM CDT 12/22/2020 10:15 PM CDT Sung Ledezma MD LAB - BLOOD BANK ORD ERABLES Performing Organization Address City/[facility]/ZIP Co de Phone Number [facility] [place] [address], [place] [phone] * HEMOGLOBIN A1C (12/22/2020 9:55 PM CDT) Hemoglobin A1c 5.8 4.4 - 6.3 % 12/23/2020 8:45 AM CDT [facility] Estimated Average Glucose 120 mg/dL 12/23/2020 8:45 AM T [facility] Comment: HbA1c Interpretation: Treatment target values recommended by ADA and other clinical organizations should be used to evaluate metabolic control in patients. Treatment Target Values: Normal : < 5.7% Pre-diabetes: 5.7-6.4% Diabetes: Equal to or greater than 6.5% Reference: [place] Diabetes Association Standards of Care in Diabetes -2014 In patients 70 years and older consider HbA1c target range of 7.0-7.5% Reference: Diabetes Mellitus in Older People: Position Statement on behalf of the International Association of Gerontology and Geriatrics (IAGG), the Diabetes Working Constitution Party for Older People (EDWPOP), and the International Task Force of Experts in Diabetes. Cornel Gotti et al. J [place] Medical Directors Association. 2012 Test results diagnostic of diabetes should be repeated for confirmation. The Sebia Capillary 2 assay for the measurement of HbA1c is a National Glycohemoglobin Standardization Program (NGSP)certified method. Blood BLOOD SPECIMEN / Unknown Venipuncture / Unknown 12/22/2020 9:55 PM CDT 12/22/2020 10:15 PM CDT Sung Ledezma MD LAB - CHEMISTRY MARU MARTINEZ [address] [address], [place] [phone] * PHOSPHORUS BLOOD (12/22/2020 9:55 PM CDT) Only the most recent of2 resultswithin the time period is included. Phosphorus 4.5 2.3 - 4.7 mg/dL 12/22/2020 10:37 PM CDT [facility] Blood BLOOD SPECIMEN / Unknown Venipuncture / Unknown 12/22/2020 9:55 PM CDT 12/22/2020 10:23 PM CDT Sung Ledezma MD LAB - CHEMISTRY MARU MARTINEZ Performing Organization Address City/[facility]/ZIP Co de Phone Number [address] [address], [place] [phone] * MAGNESIUM BLOOD (12/22/2020 9:55 PM CDT) Only the most recent of2 resultswithin the time period is included. Magnesium 1.9 1.6 - 2.6 mg/dL 12/22/2020 10:37 PM CDT [facility] Blood BLOOD SPECIMEN / Unknown Venipuncture / Unknown 12/22/2020 9:55 PM CDT 12/22/2020 10:23 PM CDT Sung Ledezma MD LAB - CHEMISTRY MARU MARTINEZ Performing Organization Address City/[facility]/ZIP Co de Phone Number [address] [address], [place] [phone] * (ABNORMAL) LIPID PROFILE (12/22/2020 9:55 PM CDT) Cholesterol Total 225(H) <200 mg/dL 12/22/2020 10:37 PM CDT [facility] HDL 31(L) >40 mg/dL 12/22/2020 10:37 PM CDT [facility] Comment: ATP III Classification of HDL Cholesterol: <40 mg/dL: Considered a major risk factor. >60 mg/dL: Considered a negative risk factor. LDL Calculated 120(H) <100 mg/dL 12/22/2020 10:37 PM CDT [facility] Comment: ATP III Classification of LDL Cholesterol: <100 mg/dL: Optimal 100 - 129 mg/dL: Near Optimal/Above Optimal 130 - 159 mg/dL: Borderline High 160 - 189 mg/dL: High >190 mg/dL: Very High Triglycerides 371(H) <150 mg/dL 12/22/2020 10:37 PM CDT [facility] Comment: ATP III Classification of Triglycerides: <150 mg/dL: Normal 150 - 199 mg/dL: Borderline High 200 - 400 mg/dL: High >500 mg/dL: Very High Blood BLOOD SPECIMEN / Unknown Venipuncture / Unknown 12/22/2020 9:55 PM CDT 12/22/2020 10:23 PM CDT Sima Aguirre MD LAB - CHEMISTRY MARU MARTINEZ [facility] Organization Address City/State/[facility] Co de Phone Number [facility] [address] [place] [address], [facility] [phone] * MRI BRAIN WO CONTRAST (12/22/2020 9:02 [...] BPM [facility] MUSE Atrial Rate 65 BPM [facility] MUSE P-R Interval 202 ms [facility] MUSE QRS Duration ms 96 ms [facility] MUSE Q-T Interval ms 418 ms [facility] MUSE QTC Calculation (Bezet) 434 ms [facility] MUSE Calculated P Roann 45 degrees [facility] MUSE Calculated R Roann 61 degrees SL MUSE Calculated T Roann 50 degrees [facility] MUSE Interpretation EKG NORMAL SINUS RHYTHM NORMAL ECG NO PREVIOUS ECGS AVAILABLE Confirmed by Gonsalo Galarza ([id number]) on 12/24/2020 9:40:49 AM [facility] MUSE 12/22/2020 8:10 PM CDT 12/24/2020 9:40 AM CDT Sima Aguirre MD ECG ORDERABLES [facility] * SARS-COV-2 (COVID-19)+INFLU A+B PCR RAPID (12/22/2020 7:31 PM CDT) [facility] COVID-19 PCR Not detected Not detected 12/23/19 21 7:58 PM CDT [facility] Influenza A Rapid NOEMI Not Detected Not Detected 12/22/2020 7:58 PM CDT [facility] Influenza B NOEMI Rapid Not Detected Not Detected 12/22/2020 7:58 PM CDT [facility] Microbiology SPECIMEN FROM NASOPHARYNGEAL STRUCTURE / Unknown Collection / Unknown 12/22/2020 7:31 PM CDT 12/22/2020 7:34 PM CDT Narrative [facility] - 12/22/2020 7:58 PM CDT Influenza [...] acid amplification assay performance was validated by [facility]. This test has been authorized by the [...] Levi MD LAB - MICROBIOLOGY O RDERABLES [facility] [address] [place] [address], [facility] [phone] * CBC W AUTO DIFFERENTIAL (12/22/2020 7:29 PM CDT) Only the most recent of4 resultswithin the time period is included. WBC 8.9 3.5 - 10.5 10 3/uL 12/22/2020 7:40 PM CDT [facility] RBC 4.22 3.80 - 5.20 10 6/uL 12/22/2020 7:40 PM CDT [facility] Hemoglobin 12.8 12.0 - 15.6 g/dL 12/22/2020 7:40 PM [facility] Hematocrit 39.5 35.0 - 45.0 % 12/22/2020 7:40 PM T [facility] MCV 93.6 80.7 - 98.3 fL 12/22/2020 7:40 PM CDT [facility] MCH 30.3 26.7 - 34.0 pg 12/22/2020 7:40 PM CDT [facility] MCHC 32.4 30.8 - 35.9 g/dL 12/22/2020 7:40 PM [facility] Platelet Count 307 150 - 400 10 3/uL 12/22/2020 7:40 PM [facility] RDW-SD 45.5 36.0 - 50.0 fL 12/22/2020 7:40 PM [facility] RDW-CV 13.2 11.2 - 14.8 % 12/22/2020 7:40 PM [facility] MPV 10.5 9.4 - 12.9 fL 12/22/2020 7:40 PM [facility] nRBC Absolute 0.00 0 10 3/uL 12/22/2020 7:40 PM [facility] nRBC Auto 0.0 0 /100 WBC 12/22/2020 7:40 PM [facility] Neutrophils % 67.7 35.0 - 70.0 % 12/22/2020 7:40 PM [facility] Lymphocytes % 21.1 20.0 - 43.0 % 12/22/2020 7:40 PM [facility] Monocytes % 8.1 5.0 - 13.0 % 12/22/2020 7:40 PM [facility] Eosinophils % 2.0 0.0 - 6.0 % 12/22/2020 7:40 PM [facility] Basophil % 0.9 0.0 - 2.0 % 12/22/2020 7:40 PM [facility] Neutrophils Absolute 6.0 1.6 - 7.0 10 3/uL 12/22/2020 7:40 PM [facility] Lymphocyte Absolute 1.9 1.1 - 3.9 10 3/uL 12/22/2020 7:40 PM [facility] Monocytes Absolute 0.72 0.26 - 1.07 10 3/uL 12/22/2020 7:40 PM [facility] Eosinophils Absolute 0.18 0.00 - 0.47 10 3/uL 12/22/2020 7:40 PM [facility] Basophils Absolute 0.08 0.00 - 0.08 10 3/uL 12/22/2020 7:40 PM [facility] Immature Granulocytes % 0.2 0.0 - 1.0 % 12/22/2020 7:40 PM [facility] Immature Granulocytes Absolute 0.02 12/22/2020 7:40 PM CDT [facility] Blood BLOOD SPECIMEN / Unknown Venipuncture / Unknown 12/22/2020 7:29 PM CDT 12/22/2020 7:35 PM CDT Sima Aguirre MD LAB - HEMATOLOGY ORD ERABLES [facility] [address] [place] [address], [facility] [phone] * XR CHEST 1VW PORTABLE (12/22/2020 7:29 [...] MD DIAGNOSTIC IMAGING O RDERABLES * PT-INR [facility] (12/22/2020 7:08 PM CDT) [facility] PT 12.6 12.1 - 14.8 Seconds 12/22/2020 7:26 PM CDT [facility] INR 1.0 See Comment 12/22/2020 7:26 PM CDT [facility] Comment:The suggested therap eutic range [...] City/[facility]/ZIP Co de Phone Number [address] [address], [facility] [phone] * TYPE + SCREEN PANEL (12/22/2020 7:08 PM CDT) [facility] Antibody Screen NEG 8:19 PM CDT [facility] ABO Rh O POS 12/22/2020 8:19 PM CDT [facility] Blood Bank BLOOD SPECIMEN / Unknown Venipuncture / Unknown 12/22/2020 7:08 PM CDT 12/22/2020 7:41 PM CDT Sima Aguirre MD LAB - BLOOD BANK ORD ERABLES Performing Organization Address City/[facility]/ZIP Co de Phone Number [facility] [address] [place] [address], [place] [phone] * (ABNORMAL) COMPREHENSIVE METABOLIC PANEL (12/22/2020 7:08 PM CDT) Only the most recent of4 resultswithin the time period is included. [facility] BUN 17 7 - 26 mg/dL 12/22/2020 7:39 PM CDT [facility] Creatinine 1.09(H) 0.56 - 0.96 mg/dL 12/22/2020 7:39 PM [facility] Sodium 142 136 - 145 mmol/L 12/22/2020 7:39 PM [facility] Potassium 3.6 3.5 - 4.5 mmol/L 12/22/2020 7:39 PM [facility] Chloride 101 98 - 107 mmol/L 12/22/2020 7:39 PM [facility] CO2 32(H) 22 - 29 mmol/L 12/22/2020 7:39 PM [facility] Glucose 100 70 - 115 mg/dL 12/22/2020 7:39 PM [facility] Calcium 8.9 8.4 - 10.2 mg/dL 12/22/2020 7:39 PM [facility] Protein Total 7.7 6.0 - 8.3 g/dL 12/22/2020 7:39 PM [facility] Albumin 3.6 3.4 - 5.0 g/dL 12/22/2020 7:39 PM [facility] Bilirubin Total 0.3 0.2 - 1.2 mg/dL 12/22/2020 7:39 PM [facility] Alkaline Phosphatase 108 40 - 150 U/L 12/22/2020 7:39 PM [facility] ALT 8 5 - 55 U/L 12/22/2020 7:39 PM [facility] AST 13 5 - 34 U/L 12/22/2020 7:39 PM [facility] Anion Gap 13 8 - 18 12/22/2020 7:39 PM [facility] BUN/Creatinine Ratio 16 7 - 23 12/22/2020 7:39 PM [facility] Osmolality Calculated 296 270 - 300 mOsm/kg 12/22/2020 7:39 PM [facility] Albumin/Globulin Ratio 0.9(L) 1.1 - 2.3 12/22/2020 7:39 PM [facility] eGFR by CKD-EPI 56(L) >=90 mL/min/1.7 3 m2 12/22/2020 7:39 PM [facility] Blood BLOOD SPECIMEN / Unknown Venipuncture / Unknown 12/22/2020 7:08 PM CDT 12/22/2020 7:13 PM CDT Sima Aguirre MD LAB - CHEMISTRY MARU Sousa Organization Address City/State/ZIP Co de Phone Number [facility] [address] [place] [address], [facility] [phone] * CT ANGIO BRAIN NECK STROKE (12/22/2020 [...] CARDIAC RHYTHM STRIP ORDER (09/06/2020 10:27 PM CENTERLESS GRINDING MACHINE ADJUSTER) Narrative 09/06/2020 10:27 PM CENTERLESS GRINDING MACHINE ADJUSTER Ordered by an unspecified provider. Scanned Document CARDIAC SERVICES ORD ERABLES * TSH REFLEX FREE T4 (09/04/2020 3:31 AM CENTERLESS GRINDING MACHINE ADJUSTER) Only the most recent of2 resultswithin the time period is included. Pathologist [facility] TSH 0.368 0.350 - 4.940 uIU/mL 09/04/2020 4:42 AM CENTERLESS GRINDING MACHINE ADJUSTER [facility] Blood BLOOD SPECIMEN / Unknown Venipuncture / Unknown 09/04/2020 3:31 AM CENTERLESS GRINDING MACHINE ADJUSTER 09/04/2020 3:43 AM CENTERLESS GRINDING MACHINE ADJUSTER Christy Brown MD LAB - CHEMISTRY ORDE JUAN [facility] Organization Address City/State/ZIP Co de Phone Number [facility] [address] [place] [address] * FOLATE (09/04/2020 3:31 AM CENTERLESS GRINDING MACHINE ADJUSTER) Pathologist [facility] Folate 15.6 7.0 - 31.4 ng/mL 09/04/2020 4:42 AM CENTERLESS GRINDING MACHINE ADJUSTER [facility] Blood BLOOD SPECIMEN / Unknown Venipuncture / Unknown 09/04/2020 3:31 AM CENTERLESS GRINDING MACHINE ADJUSTER 09/04/2020 3:43 AM CENTERLESS GRINDING MACHINE ADJUSTER Stacy Bar [facility] LAB - CHEMISTRY ORDERABLES Performing Organization Address [facility] de Phone Number [facility] [address] [place] [phone] * VITAMIN B12 (09/04/2020 3:31 AM CENTERLESS GRINDING MACHINE ADJUSTER) Only the most recent of2 resultswithin the time period is included. Vitamin B12 280 213 - 816 pg/mL 09/04/2020 4:42 AM CENTERLESS GRINDING MACHINE ADJUSTER [facility] Blood BLOOD SPECIMEN / Unknown Venipuncture / Unknown 09/04/2020 3:31 AM CENTERLESS GRINDING MACHINE ADJUSTER 09/04/2020 3:43 AM CENTERLESS GRINDING MACHINE ADJUSTER Stacy Bar [facility] LAB - CHEMISTRY ORDERABLES Performing Organization Address [facility] de Phone Number [facility] [address] [place] [phone] * AMMONIA (09/04/2020 3:31 AM CENTERLESS GRINDING MACHINE ADJUSTER) Ammonia 35 18 - 72 umol/L 09/04/2020 3:56 AM CENTERLESS GRINDING MACHINE ADJUSTER [facility] Blood BLOOD SPECIMEN / Unknown Venipuncture / Unknown 09/04/2020 3:31 AM CENTERLESS GRINDING MACHINE ADJUSTER 09/04/2020 3:43 AM CENTERLESS GRINDING MACHINE ADJUSTER Stacy Bar [facility] LAB - CHEMISTRY ORDERABLES Performing Organization Address [facility] de Phone Number [facility] [address] [place] [phone] * T3 TOTAL (09/04/2020 3:31 AM CENTERLESS GRINDING MACHINE ADJUSTER) T3 Total 0.61 0.35 - 1.93 ng/mL 09/04/2020 1:43 PM CENTERLESS GRINDING MACHINE ADJUSTER [facility] Blood BLOOD SPECIMEN / Unknown Venipuncture / Unknown 09/04/2020 3:31 AM CENTERLESS GRINDING MACHINE ADJUSTER 09/04/2020 3:43 AM CENTERLESS GRINDING MACHINE ADJUSTER Christy Brown MD LAB - CHEMISTRY MARU MARTINEZ [facility] [address] [place] [address] * T4 FREE DIRECT REFLEXED (09/03/2020 5:33 AM CENTERLESS GRINDING MACHINE ADJUSTER) Pathologist [facility] T4 Free 0.99 0.70 - 1.48 ng/dL 09/03/2020 7:34 AM CENTERLESS GRINDING MACHINE ADJUSTER [facility] Blood BLOOD SPECIMEN / Unknown Venipuncture / Unknown 09/03/2020 5:33 AM CENTERLESS GRINDING MACHINE ADJUSTER 09/03/2020 5:38 AM CENTERLESS GRINDING MACHINE ADJUSTER Orly Huertas TOP AND SEAT COVER FITTER-COMPUTER AIDE LAB - CHEM ISTRY ORDERABLES Performing Organization Address City/[facility]/ZIP Co de Phone Number [facility] [address] [place] [address] * HIV-1 HIV-2 ANTIGEN/ANTIBODY (02/22/2018 1:00 PM CDT) [facility] HIV Antigen/Antibod y 1 & 2 Non-reacti ve Non-react austin 02/22/2018 2:34 PM CDT [facility] Comment: Neither HIV-1 p24 Antigen nor HIV-1/HIV-2 Antibodies are detected. Blood BLOOD SPECIMEN / Unknown Lab Venipuncture / Unknown 02/22/2018 1:00 PM CDT 02/22/2018 1:15 PM CDT Eulalia Lema DO LAB - HEMATOLOGY O RDERABLES [address] [phone] * DNA (DS) ANTIBODY RFLEX IFA (02/22/2018 1:00 PM CDT) Pathologist [facility] dsDNA Antibody 12 0 - 29 IU/mL 02/25/2018 12:24 PM CDT [facility] Comment: dsDNA Antibody Numeric Result Interpretation: 0 - 29 IU/mL: Negative 30 - 75 IU/mL: Borderline >75 IU/mL: Positive Blood BLOOD SPECIMEN / Unknown Lab Venipuncture / Unknown 02/22/2018 1:00 PM CDT 02/22/2018 1:15 PM CDT Eulalia Lema DO LAB - SEROLOGY ORD ERABLES [facility] [address] [place] [address] * (ABNORMAL) TAMIE STAINING PATTERNS REFLEXED (02/22/2018 1:00 PM CDT) Only the most recent of2 resultswithin the time period is included. Homogeneous Pattern 1:160(H) 02/25/2018 2:15 PM CDT [facility] ([facility]) Note Comment 02/25/2018 2:15 PM CDT [facility] ([facility]) Comment: A positive SUMMER result may occur in healthy individuals (low titer) or be associated with a variety of diseases. See interpretation chart which is not all inclusive: Pattern Antigen Detected Suggested Disease Association Homogeneous DNA(ds,ss), SLE - High titers Nucleosomes, Histones Drug-induced SLE Speckled Sm, NEON GLASS BENDER, SCL-70, SLE,MCTD,PSS (diffuse form), SS-A/SS-B Sjogrens Nucleolar SCL-70, PM-1/SCL High titers Scleroderma, PM/DM Centromere Centromere PSS (limited form) w/Crest syndrome variable Nuclear Dot [id number] Primary Biliary Cirrhosis Nuclear GP210, Primary Biliary Cirrhosis Membrane suhas A,B,C Blood BLOOD SPECIMEN / Unknown Lab Venipuncture / Unknown 02/22/2018 1:00 PM CDT 02/22/2018 1:15 PM CDT [facility] ([facility]) - 02/25/2018 2:15 PM CDT Performed at: [address] [place] [address] [address] [place], [place] [id number] Pond Worker: Titi Ornelas PhD, Phone: [phone] Eulalia Lema DO LAB - PATHOLOGY/CLAUDIO RUIZ ORDERABLES [facility] ([facility]) [address] [place] [address], [facility] * LUPUS ANTICOAGULANT PANEL (02/22/2018 1:00 PM CDT) Only the most recent of2 resultswithin the time period is included. APTT 32.5 23.0 - 38.4 Seconds 02/22/2018 1:52 PM CDT [facility] PT 12.6 12.1 - 14.8 Seconds 02/22/2018 1:52 PM CDT [facility] [place] Buffer 62.7 Seconds 018 1:52 PM CDT [facility] [place] Phospholipid 58.4 Seconds 02/22/2018 1:52 PM CDT [facility] [place] Delta 4.3 <8.0 Seconds 02/22/2018 1:52 PM CDT [facility] Interpretation [place] Negative Negative 02/22/2018 1:52 PM CDT [facility] Comment:Up to 15-20% of lisa ents [...] - HEMATOLOGY O RDERABLES Performing Organization Address City/State/[facility] Co de Phone Number [address] [phone] * NEON GLASS BENDER ANTIBODY (02/22/2018 1:00 PM CDT) Only the most recent of2 resultswithin the time period is included. SM/NEON GLASS BENDER Antibody 4.9 0.0 - 19.9 Units 02/25/2018 12:24 PM CDT [facility] Comment: KAI Antibody Numeric Result Interpretation: <20.0 Units: Negative 20.0 - 39.0 Units: Weakly Positive >39.0 Units: Positive Blood BLOOD SPECIMEN / Unknown Lab Venipuncture / Unknown 02/22/2018 1:00 PM CDT 02/22/2018 1:15 PM CDT Eulalia E Bensinger DO LAB - [place] [address], [facility] [phone] * RHEUMATOID FACTOR BLOOD QUANTITATIVE (02/22/2018 1:00 PM CDT) Only the most recent of2 resultswithin the time period is included. Pathologist [facility] Rheumatoid Factor <15 <30 IU/mL 02/22/2018 4:52 PM CDT [facility] Blood BLOOD SPECIMEN / Unknown Lab Venipuncture / Unknown 02/22/2018 1:00 PM CDT 02/22/2018 1:15 PM CDT Eulalia Lema DO LAB - CHEMISTRY OR DERABLES Performing Organization Address [facility] [place] [address], [facility] [phone] * (ABNORMAL) SUMMER BLOOD SCREEN W/REFLEX TITER (02/22/2018 1:00 PM CDT) Only the most recent of2 resultswithin the time period is included. Pathologist [facility] SUMMER Positive(A ) 02/25/2018 2:15 PM CDT [facility] ([facility]) Comment: Negative <1:80 Borderline 1:80 Positive >1:80 Blood BLOOD SPECIMEN / Unknown Lab Venipuncture / Unknown 02/22/2018 1:00 PM CDT 02/22/2018 1:15 PM CDT Narrative [facility] ([facility]) - 02/25/2018 2:15 PM CDT Performed at: [facility] [address] [place], [place] [id number] Pond Worker: Titi Ornelas PhD, Phone: [phone] Eulalia Lema DO LAB - CHEMISTRY OR DERABLES Performing Organization Address City/[facility]/ZIP Co de Phone Number [facility] ([facility]) [address] [place] [address], [facility] * SS-B (SJOGRENS'S) ANTIBODY (02/22/2018 1:00 PM CDT) Only the most recent of2 resultswithin the time period is included. SS-B LA Antibody 9.9 0.0 - 19.9 Units 02/25/2018 12:24 PM CDT [facility] Comment: KAI Antibody Numeric Result Interpretation: <20.0 Units: Negative 20.0 - 39.0 Units: Weakly Positive >39.0 Units: Positive Blood BLOOD SPECIMEN / Unknown Lab Venipuncture / Unknown 02/22/2018 1:00 PM CDT 02/22/2018 1:15 PM CDT [facility]alia E [facility] DO LAB - CHEMISTRY OR DERABLES Performing Organization Address [facility] Co de Phone Number [address] [phone] * SS-A (SJOGREN'S) ANTIBODY (02/22/2018 1:00 PM CDT) Only the most recent of2 resultswithin the time period is included. Pathologist [facility] SS-A (Ro) Antibody 2.3 0.0 - 19.9 Units 02/25/2018 12:24 PM CDT [facility] Comment: KAI Antibody Numeric Result Interpretation: <20.0 Units: Negative 20.0 - 39.0 Units: Weakly Positive >39.0 Units: Positive Blood BLOOD SPECIMEN / Unknown Lab Venipuncture / Unknown 02/22/2018 1:00 PM CDT 02/22/2018 1:15 PM CDT Eulalia U [employer] DO LAB - CHEMISTRY OR DERABLES [address] [phone] * TSH (02/22/2018 1:00 PM CDT) Only the most recent of2 resultswithin the time period is included. Pathologist [facility] TSH 0.415 0.350 - 4.940 uIU/mL 02/22/2018 2:36 PM CDT [facility] Blood BLOOD SPECIMEN / Unknown Lab Venipuncture / Unknown 02/22/2018 1:00 PM CDT 02/22/2018 1:15 PM CDT Eulalia Lema DO LAB - CHEMISTRY OR DERABLES [facility] [address] [place] [address], [facility] [phone] * OCCULT BLOOD FECES - POINT OF CARE (IP) (02/22/2018) Occult Blood Negative Negative QC Verified Yes Yes Card Exp Date yes Yes Stool STOOL SPECIMEN / Unknown 02/22/2018 Bernadette Saavedra APRN-ABHISHEK LAB - POINT OF C ARE ORDERABLES * HEMOGLOBIN A1C - POINT OF CARE (AMB) [facility] (02/13/2018 2:41 PM CDT) Only the most recent of2 resultswithin the time period is included. Pathologist [facility] Hemoglobin A1c POCT 5.5 [facility] LAB BLOOD SPECIMEN / Unknown 02/13/2018 2:41 PM CDT Eulalia Lema DO LAB - POINT OF CAR E ORDERABLES Performing Organization Address [facility] Co de Phone Number [facility] [address] [place] [address] * (ABNORMAL) LIPID PROFILE - POINT OF CARE (AMB) [facility] (01/21/2018) Cholesterol Total 271 HDL 35 mg/dL Triglycerides 344(A) 40 - 160 mg/dL LDL Calculated 167 Blood BLOOD SPECIMEN / Unknown 01/21/2018 Garrett Retana PA-C LAB - POINT OF CARE ORDERABLES * LAB HISTORICAL RESULTS-ONBASE (01/31/2017) Only the most recent of6 resultswithin the time period is included. 01/31/2017 Historical Provider LAB - CHEMISTRY O RDERABLES [facility] [address] * HISTONE ANTIBODY (07/19/2016 10:09 AM CENTERLESS GRINDING MACHINE ADJUSTER) Anti-Histone Antibody 0.8 0.0 - 0.9 Units [facility] Comment: Negative <1.0 Weak Positive 1.0 - 1.5 Moderate Positive 1.6 - 2.5 Strong Positive >2.5 Blood specimen (specimen) BLOOD SPECIMEN / Unknown 07/19/2016 10:09 AM CENTERLESS GRINDING MACHINE ADJUSTER 07/19/2016 10:09 AM CENTERLESS GRINDING MACHINE ADJUSTER Narrative [facility] ([facility]) - 07/25/2016 1:08 PM CENTERLESS GRINDING MACHINE ADJUSTER Performed at: [address] [place] [id number] Pond Worker: Ellis Theodore MD, Phone: [phone] Leanne Hatfield MD LAB - CHEMISTR Y ORDERABLES [facility]) * (ABNORMAL) DNA ANTIBODY DS CRITHIDIA TITER (07/19/2016 10:08 AM CENTERLESS GRINDING MACHINE ADJUSTER) dsDNA Antibody IgG IFA 1:160(H) <1:10 [facility] Comment: INTERPRETIVE INFORMATION: Double-Stranded DNA (dsDNA) Antibody, [...] recommendations for testing may be found at [email or web address]. Performed by [email or web address], [address] [place] [id number] [email or web address], Javier Bach MD, Lab. Director Blood specimen (specimen) BLOOD SPECIMEN / Unknown 07/19/2016 10:08 AM CENTERLESS GRINDING MACHINE ADJUSTER 07/19/2016 10:09 AM CENTERLESS GRINDING MACHINE ADJUSTER Leanne Hatfield MD LAB - SEROLOGY ORDERABLES [facility] ([facility]) * (ABNORMAL) COMPLEMENT TOTAL (07/19/2016 10:08 AM CENTERLESS GRINDING MACHINE ADJUSTER) Complement Total CH50 >60(H) 42 - 60 U/mL [facility] ([facility]) Blood specimen (specimen) BLOOD SPECIMEN / Unknown 07/19/2016 10:08 AM CENTERLESS GRINDING MACHINE ADJUSTER 07/19/2016 10:08 AM CENTERLESS GRINDING MACHINE ADJUSTER Narrative [facility] ([facility]) - 07/20/2016 3:12 PM CENTERLESS GRINDING MACHINE ADJUSTER Performed at: [facility] [place] [id number] Pond Worker: Titi Ornelas PhD, Phone: [phone] Leanne Hatfield MD LAB - CHEMISTR Y ORDERABLES Performing Organization Address [facility] Co de Phone Number [facility] ([facility]) * CHROMATIN ANTIBODY (07/19/2016 10:05 AM CENTERLESS GRINDING MACHINE ADJUSTER) Anti-Chromatin Antibody <0.2 0.0 - 0.9 AI [facility] ([facility]) Blood specimen (specimen) BLOOD SPECIMEN / Unknown 07/19/2016 10:05 AM CENTERLESS GRINDING MACHINE ADJUSTER 07/19/2016 10:05 AM CENTERLESS GRINDING MACHINE ADJUSTER Narrative [facility] ([facility]) - 07/20/2016 1:09 PM CENTERLESS GRINDING MACHINE ADJUSTER Performed at: [facility] Lab[address] [id number] Pond Worker: Titi Ornelas PhD, Phone: [phone] Leanne Hatfield MD LAB - SEROLOGY ORDERABLES Performing Organization Address City/[facility]/ZIP Co de Phone Number [facility] ([facility]) * (ABNORMAL) C-REACTIVE PROTEIN (07/19/2016 10:05 AM CENTERLESS GRINDING MACHINE ADJUSTER) C-Reactive Protein 1.8(H) <=0.5 mg/dL [facility] Blood specimen (specimen) BLOOD SPECIMEN / Unknown 07/19/2016 10:05 AM CENTERLESS GRINDING MACHINE ADJUSTER 07/19/2016 10:05 AM CENTERLESS GRINDING MACHINE ADJUSTER Leanne Hatfield MD LAB - CHEMISTR Y ORDERABLES Performing Organization Address [facility] Co de Phone Number [address] [phone] * ALDOLASE (07/19/2016 10:05 AM CENTERLESS GRINDING MACHINE ADJUSTER) Aldolase 6.4 3.3 - 10.3 U/L [facility]) Blood specimen (specimen) BLOOD SPECIMEN / Unknown 07/19/2016 10:05 AM CENTERLESS GRINDING MACHINE ADJUSTER 07/19/2016 10:05 AM CENTERLESS GRINDING MACHINE ADJUSTER Narrative [facility] ([facility]) - 07/20/2016 3:12 PM CENTERLESS GRINDING MACHINE ADJUSTER Performed at: - [address] [id number] Pond Worker: Titi Ornelas PhD, Phone: [phone] Leanne Hatfield MD LAB - CHEMISTR Y ORDERABLES Performing Organization Address [facility] Co de Phone Number [facility] ([facility]) * CYCLIC CITRUL PEPTIDE AB IGG (CCP) (07/19/2016 10:05 AM CENTERLESS GRINDING MACHINE ADJUSTER) CCP Antibody IgG <0.5 <5.0 U/mL [facility] Blood specimen (specimen) BLOOD SPECIMEN / Unknown 07/19/2016 10:05 AM CENTERLESS GRINDING MACHINE ADJUSTER 07/19/2016 10:05 AM CENTERLESS GRINDING MACHINE ADJUSTER Leanne Hatfield MD LAB - CHEMISTR Y ORDERABLES Performing Organization Address City/[facility]/ZIP Co de Phone Number [address] [phone] * HEPATITIS B SURFACE ANTIGEN W RFLX CONFIRMATION (07/19/2016 10:05 AM CENTERLESS GRINDING MACHINE ADJUSTER) Hepatitis B Virus Surface Antigen Non-reacti ve Non-reacti ve [facility] Blood specimen (specimen) BLOOD SPECIMEN / Unknown 07/19/2016 10:05 AM CENTERLESS GRINDING MACHINE ADJUSTER 07/19/2016 10:05 AM CENTERLESS GRINDING MACHINE ADJUSTER Leanne Hatfield MD LAB - CHEMISTR Y ORDERABLES Performing Organization Address [facility] Co de Phone Number [address] [phone] * HEPATITIS C ANTIBODY (07/19/2016 10:05 AM CENTERLESS GRINDING MACHINE ADJUSTER) Pathologist [facility] Hepatitis C Antibody Non-react austin Non-reac tive [facility] Comment: Hepatitis C Antibody screen indicates no serologic evidence of past or current infection with Hepatitis C Virus. Patients with unexplained liver disease who are immunocompromised or suspected of having acute Hepatitis C infection may benefit from Nucleic Acid Test (MILADIS) for Hepatitis C Viral RNA to confirm Hepatitis C status. Blood specimen (specimen) BLOOD SPECIMEN / Unknown 07/19/2016 10:05 AM CENTERLESS GRINDING MACHINE ADJUSTER 07/19/2016 10:05 AM CENTERLESS GRINDING MACHINE ADJUSTER Leanne Hatfield MD LAB - CHEMISTR Y ORDERABLES Performing Organization Address City/[facility]/ZIP Co de Phone Number [address] [phone] * THYROID PEROXIDASE ANTIBODY (07/19/2016 10:04 AM CENTERLESS GRINDING MACHINE ADJUSTER) Thyroid Peroxidase TPO Antibody 8 0 - 34 IU/mL [facility] (BE[facility]) Blood specimen (specimen) BLOOD SPECIMEN / Unknown 07/19/2016 10:04 AM CENTERLESS GRINDING MACHINE ADJUSTER 07/19/2016 10:04 AM CENTERLESS GRINDING MACHINE ADJUSTER Narrative [facility] (BE[facility]) - 07/20/2016 6:11 AM CENTERLESS GRINDING MACHINE ADJUSTER Performed at: 01 - Lab[address] [id number] Pond Worker: Titi Ornelas PhD, Phone: [phone] Leanne Hatfield MD LAB - CHEMISTR Y ORDERABLES Performing Organization Address City/[facility] Co de Phone Number [facility] ([facility]) * THYROGLOBULIN ANTIBODY (07/19/2016 10:04 AM CENTERLESS GRINDING MACHINE ADJUSTER) Thyroglobulin Antibody <1.0 0.0 - 0.9 IU/mL [facility] ([facility]) Comment:Thyroglobulin Antibo dy measured by Johnny Hettick Method[employer] Blood specimen (specimen) BLOOD SPECIMEN / Unknown 07/19/2016 10:04 AM CENTERLESS GRINDING MACHINE ADJUSTER 07/19/2016 10:04 AM CENTERLESS GRINDING MACHINE ADJUSTER Narrative [facility] ([facility]) - 07/20/2016 1:09 PM CENTERLESS GRINDING MACHINE ADJUSTER Performed at: [facility] Lab[address] [id number] Pond Worker: Titi Ornelas PhD, Phone: [phone] Leanne Hatfield MD LAB - CHEMISTR Y ORDERABLES Performing Organization Address [facility] Co de Phone Number [facility] ([facility]) * XR KNEE RIGHT 3VW (07/19/2016 9:54 AM CENTERLESS GRINDING MACHINE ADJUSTER) Anatomical Region Laterality Modality Lower Extremity Other Impressions 07/19/2016 12:10 PM CENTERLESS GRINDING MACHINE ADJUSTER Impression: 1. Normal radiographs of the right [...] 12:10 PM . Narrative 07/19/2016 12:10 PM CENTERLESS GRINDING MACHINE ADJUSTER Exam: 1. Right hand, 2 views 2. [...] XR ANKLE RIGHT 2VW (07/19/2016 9:54 AM CENTERLESS GRINDING MACHINE ADJUSTER) Anatomical Region Laterality Modality Lower Extremity Other Impressions 07/19/2016 12:10 PM CENTERLESS GRINDING MACHINE ADJUSTER Impression: 1. Normal radiographs of the right [...] 12:10 PM . Narrative 07/19/2016 12:10 PM CENTERLESS GRINDING MACHINE ADJUSTER Exam: 1. Right hand, 2 views 2. [...] XR ANKLE LEFT 2VW (07/19/2016 9:54 AM CENTERLESS GRINDING MACHINE ADJUSTER) Anatomical Region Laterality Modality Lower Extremity Other Impressions 07/19/2016 12:10 PM CENTERLESS GRINDING MACHINE ADJUSTER Impression: 1. Normal radiographs of the right [...] 12:10 PM . Narrative 07/19/2016 12:10 PM CENTERLESS GRINDING MACHINE ADJUSTER Exam: 1. Right hand, 2 views 2. [...] XR KNEE LEFT 3VW (07/19/2016 9:54 AM CENTERLESS GRINDING MACHINE ADJUSTER) Anatomical Region Laterality Modality Lower Extremity Other Impressions 07/19/2016 12:10 PM CENTERLESS GRINDING MACHINE ADJUSTER Impression: 1. Normal radiographs of the right [...] 12:10 PM . Narrative 07/19/2016 12:10 PM CENTERLESS GRINDING MACHINE ADJUSTER Exam: 1. Right hand, 2 views 2. [...] XR HAND RIGHT 2VW (07/19/2016 9:54 AM CENTERLESS GRINDING MACHINE ADJUSTER) Anatomical Region Laterality Modality Wrist / Hand Other Impressions 07/19/2016 12:10 PM CENTERLESS GRINDING MACHINE ADJUSTER Impression: 1. Normal radiographs of the right [...] 12:10 PM . Narrative 07/19/2016 12:10 PM CENTERLESS GRINDING MACHINE ADJUSTER Exam: 1. Right hand, 2 views 2. [...] XR HAND LEFT 2VW (07/19/2016 9:54 AM CENTERLESS GRINDING MACHINE ADJUSTER) Anatomical Region Laterality Modality Wrist / Hand Other Impressions 07/19/2016 12:10 PM CENTERLESS GRINDING MACHINE ADJUSTER Impression: 1. Normal radiographs of the right [...] 12:10 PM . Narrative 07/19/2016 12:10 PM CENTERLESS GRINDING MACHINE ADJUSTER Exam: 1. Right hand, 2 views 2. [...] XR WRIST RIGHT 2VW (07/19/2016 9:54 AM CENTERLESS GRINDING MACHINE ADJUSTER) Anatomical Region Laterality Modality Wrist / Hand Other Impressions 07/19/2016 12:10 PM CENTERLESS GRINDING MACHINE ADJUSTER Impression: 1. Normal radiographs of the right [...] 12:10 PM . Narrative 07/19/2016 12:10 PM CENTERLESS GRINDING MACHINE ADJUSTER Exam: 1. Right hand, 2 views 2. [...] XR WRIST LEFT 2VW (07/19/2016 9:54 AM CENTERLESS GRINDING MACHINE ADJUSTER) Anatomical Region Laterality Modality Wrist / Hand Other Impressions 07/19/2016 12:10 PM CENTERLESS GRINDING MACHINE ADJUSTER Impression: 1. Normal radiographs of the right [...] 12:10 PM . Narrative 07/19/2016 12:10 PM CENTERLESS GRINDING MACHINE ADJUSTER Exam: 1. Right hand, 2 views 2. [...] GLYCOPROTEIN 1 ANTIBODY IGG (07/19/2016 9:40 AM CENTERLESS GRINDING MACHINE ADJUSTER) Beta-2 Glycoprotein I Antibody IgG <20.0 <20.0 [facility] Blood specimen (specimen) BLOOD SPECIMEN / Unknown 07/19/2016 9:40 AM CENTERLESS GRINDING MACHINE ADJUSTER 07/19/2016 9:44 AM CENTERLESS GRINDING MACHINE ADJUSTER Leanne Hatfield MD LAB - SEROLOGY ORDERABLES [address] [phone] * BETA-2 GLYCOPROTEIN 1 ANTIBODY IGM (07/19/2016 9:40 AM CENTERLESS GRINDING MACHINE ADJUSTER) Beta-2 Glycoprotein Antibody IgM <20.0 <20.0 [facility] Blood specimen (specimen) BLOOD SPECIMEN / Unknown 07/19/2016 9:40 AM CENTERLESS GRINDING MACHINE ADJUSTER 07/19/2016 9:44 AM CENTERLESS GRINDING MACHINE ADJUSTER Leanne Hatfield MD LAB - SEROLOGY ORDERABLES [address] [phone] * (ABNORMAL) URINALYSIS W/MICROSCOPIC NO CULTURE (07/19/2016 9:40 AM CENTERLESS GRINDING MACHINE ADJUSTER) Color UA Yellow Straw, Yellow, Colorless, Light Yellow [facility] Clarity UA Clear Clear [facility] Specific [place] UA 1.020 1.001 - 1.030 [facility] pH UA 7.0 5.0 - 8.0 [facility] Protein UA 50(A) <=20 mg/dL [facility] Glucose UA Negative Negative mg/dL [facility] Ketone UA Negative Negative mg/dL [facility] Bilirubin UA Negative Negative mg/dL [facility] Blood UA Negative Negative [facility] Nitrite UA Negative Negative [facility] Leukocyte Esterase Negative Negative [facility] Urobilinogen UA <2.0 <2.0 mg/dL [facility] RBC UA 2 0 - 8 /HPF [facility] WBC UA 1 0 - 2 /HPF [facility] Bacteria UA Rare Rare, Occasional, None /HPF [facility] Squamous Epithelial Cells UA 4(H) 0 - 1 /HPF [facility] Mucus UA Many(A) None /LPF [facility] Hyaline Casts UA 6(H) 0 - 2 /LPF [facility] Urine specimen (specimen) URINE SPECIMEN OBTAINED BY CLEAN CATCH PROCEDURE / Unknown 07/19/2016 9:40 AM CENTERLESS GRINDING MACHINE ADJUSTER 07/19/2016 9:47 AM CENTERLESS GRINDING MACHINE ADJUSTER Leanne Hatfield MD LAB - URINALYS IS ORDERABLES Performing Organization Address [facility] Co de Phone Number [address] [phone] * URIC ACID BLOOD (07/19/2016 9:40 AM CENTERLESS GRINDING MACHINE ADJUSTER) Uric Acid 5.9 2.6 - 7.2 mg/dL [facility] Blood specimen (specimen) BLOOD SPECIMEN / Unknown 07/19/2016 9:40 AM CENTERLESS GRINDING MACHINE ADJUSTER 07/19/2016 9:46 AM CENTERLESS GRINDING MACHINE ADJUSTER Leanne Hatfield MD LAB - CHEMISTR Y ORDERABLES Performing Organization Address [facility] Co de Phone Number [address] [phone] * CARDIOLIPIN ANTIBODY IGA (07/19/2016 9:40 AM CENTERLESS GRINDING MACHINE ADJUSTER) Anticardiolipin Antibody IgA <15.0 <15.0 APL [facility] Blood specimen (specimen) BLOOD SPECIMEN / Unknown 07/19/2016 9:40 AM CENTERLESS GRINDING MACHINE ADJUSTER 07/19/2016 9:44 AM CENTERLESS GRINDING MACHINE ADJUSTER Leanne Hatfield MD LAB - SEROLOGY ORDERABLES Performing Organization Address City/[facility] Co de Phone Number [address] [phone] * CARDIOLIPIN ANTIBODY IGM (07/19/2016 9:40 AM CENTERLESS GRINDING MACHINE ADJUSTER) Anticardiolipin Antibody IgM <15.0 <15.0 MPL [facility] Blood specimen (specimen) BLOOD SPECIMEN / Unknown 07/19/2016 9:40 AM CENTERLESS GRINDING MACHINE ADJUSTER 07/19/2016 9:44 AM CENTERLESS GRINDING MACHINE ADJUSTER Leanne Hatfield MD LAB - SEROLOGY ORDERABLES Performing Organization Address [facility] Co de Phone Number [address] [phone] * CARDIOLIPIN ANTIBODY IGG (07/19/2016 9:40 AM CENTERLESS GRINDING MACHINE ADJUSTER) Anticardiolipin Antibody IgG <15.0 <15.0 GPL [facility] Blood specimen (specimen) BLOOD SPECIMEN / Unknown 07/19/2016 9:40 AM CENTERLESS GRINDING MACHINE ADJUSTER 07/19/2016 9:44 AM CENTERLESS GRINDING MACHINE ADJUSTER Leanne Hatfield MD LAB - SEROLOGY ORDERABLES Performing Organization Address [facility] Co de Phone [address] [phone] * PEREZ (SM) ANTIBODY KAI (07/19/2016 9:40 AM CENTERLESS GRINDING MACHINE ADJUSTER) Perez Antibody 6.7 0.0 - 19.9 Units [facility] Comment: KAI Antibody Numeric Result Interpretation: <20.0 Units: Negative 20.0 - 39.0 Units: Weakly Positive >39.0 Units: Positive Blood specimen (specimen) BLOOD SPECIMEN / Unknown 07/19/2016 9:40 AM CENTERLESS GRINDING MACHINE ADJUSTER 07/19/2016 9:47 AM CENTERLESS GRINDING MACHINE ADJUSTER Leanne Hatfield MD LAB - CHEMISTR Y ORDERABLES Performing Organization Address [facility] Co de Phone Number [address] [phone] * BETA-2 GLYCOPROTEIN 1 ANTIBODY IGA (07/19/2016 9:40 AM CENTERLESS GRINDING MACHINE ADJUSTER) Beta-2 Glycoprotein I Antibody IgA <20.0 <20.0 [facility] Blood specimen (specimen) BLOOD SPECIMEN / Unknown 07/19/2016 9:40 AM CENTERLESS GRINDING MACHINE ADJUSTER 07/19/2016 9:44 AM CENTERLESS GRINDING MACHINE ADJUSTER Leanne Hatfield MD LAB - SEROLOGY ORDERABLES Performing Organization Address City/[facility]/ZIP Co de Phone Number [address] [phone] * SCLERODERMA 70 (SCL) ANTIBODY (07/19/2016 9:40 AM CENTERLESS GRINDING MACHINE ADJUSTER) Pathologist [facility] SCL-70 Antibody 1.8 0.0 - 19.9 Units [facility] Comment: KAI Antibody Numeric Result Interpretation: <20.0 Units: Negative 20.0 - 39.0 Units: Weakly Positive >39.0 Units: Positive Blood specimen (specimen) BLOOD SPECIMEN / Unknown 07/19/2016 9:40 AM CENTERLESS GRINDING MACHINE ADJUSTER 07/19/2016 9:47 AM CENTERLESS GRINDING MACHINE ADJUSTER Leanne Hatfield MD LAB - CHEMISTR Y ORDERABLES [address] [phone] * (ABNORMAL) ERYTHROCYTE SEDIMENTATION RATE (07/19/2016 9:40 AM CENTERLESS GRINDING MACHINE ADJUSTER) [facility] Erythrocyte Sedimentation Rate Westergren 36(H) 0 - 20 MM/HR [facility] Blood specimen (specimen) BLOOD SPECIMEN / Unknown 07/19/2016 9:40 AM CENTERLESS GRINDING MACHINE ADJUSTER 07/19/2016 9:46 AM CENTERLESS GRINDING MACHINE ADJUSTER Leanne Hatfield MD LAB - HEMATOLO GY ORDERABLES Performing Organization Address City/[facility]/ZIP Co de Phone Number [address] [phone] * CBC W/O DIFFERENTIAL (07/19/2016 9:40 AM CENTERLESS GRINDING MACHINE ADJUSTER) Pathologist [facility] WBC 7.0 3.5 - 10.5 10 3/uL [facility] RBC 4.83 3.90 - 5.00 10 6/uL [facility] Hemoglobin 14.2 12.0 - 15.5 g/dL [facility] Hematocrit 42.3 35.0 - 45.0 % [facility] MCV 87.6 81.0 - 97.0 fL [facility] MCH 29.4 28.0 - 34.0 pg [facility] MCHC 33.6 32.0 - 36.0 g/dL [facility] Platelet Count 261 150 - 400 10 3/uL [facility] RDW-SD 45.5 36.0 - 50.0 fL [facility] RDW-CV 14.2 11.2 - 14.8 % [facility] MPV 10.1 9.3 - 12.8 fL [facility] [facility] nRBC Absolute 0.00 0 10 3/uL [facility] nRBC Auto 0.0 0 /100 WBC [facility] Blood specimen (specimen) BLOOD SPECIMEN / Unknown 07/19/2016 9:40 AM CENTERLESS GRINDING MACHINE ADJUSTER 07/19/2016 9:46 AM CENTERLESS GRINDING MACHINE ADJUSTER Leanne Hatfield MD LAB - HEMATOLO GY ORDERABLES [address] [phone] * COMPLEMENT C4 (07/19/2016 9:40 AM CENTERLESS GRINDING MACHINE ADJUSTER) Complement C4 42 15 - 57 mg/dL [facility] Blood specimen (specimen) BLOOD SPECIMEN / Unknown 07/19/2016 9:40 AM CENTERLESS GRINDING MACHINE ADJUSTER 07/19/2016 9:46 AM CENTERLESS GRINDING MACHINE ADJUSTER Leanne Hatfield MD LAB - SEROLOGY ORDERABLES Performing Organization Address [facility] Co de Phone Number [address] [phone] * CK BLOOD (07/19/2016 9:40 AM CENTERLESS GRINDING MACHINE ADJUSTER) CK Total 57 30 - 200 Units/L [facility] Blood specimen (specimen) BLOOD SPECIMEN / Unknown 07/19/2016 9:40 AM CENTERLESS GRINDING MACHINE ADJUSTER 07/19/2016 9:46 AM CENTERLESS GRINDING MACHINE ADJUSTER Leanne Hatfield MD LAB - CHEMISTR Y ORDERABLES Performing Organization Address City/[facility]/ZIP Co de Phone Number [address] [phone] * T4 FREE (07/19/2016 9:40 AM CENTERLESS GRINDING MACHINE ADJUSTER) T4 Free 0.9 0.7 - 1.5 ng/dL [facility] Blood specimen (specimen) BLOOD SPECIMEN / Unknown 07/19/2016 9:40 AM CENTERLESS GRINDING MACHINE ADJUSTER 07/19/2016 9:46 AM CENTERLESS GRINDING MACHINE ADJUSTER Leanne Hatfield MD LAB - CHEMISTR Y ORDERABLES Performing Organization Address City/[facility] Co de Phone Number [address] [phone] * COMPLEMENT C3 (07/19/2016 9:40 AM CENTERLESS GRINDING MACHINE ADJUSTER) Complement C3 186 82 - 193 mg/dL [facility] Blood specimen (specimen) BLOOD SPECIMEN / Unknown 07/19/2016 9:40 AM CENTERLESS GRINDING MACHINE ADJUSTER 07/19/2016 9:46 AM CENTERLESS GRINDING MACHINE ADJUSTER Leanne Hatfield MD LAB - CHEMISTR Y ORDERABLES Performing Organization Address [facility] de Phone Number [address] [phone] * GROSS + MICRO EXAM (06/07/2001 11:00 AM CENTERLESS GRINDING MACHINE ADJUSTER) Result CASE NUMBER [id number] Comment: ORDERING [...] (if present at all) are extremely rare. [place] proteinaceous sections are widespread within the glandular [...] FOLLICLE CYSTS. CODE 4 C[place] [id number] RELEASED BY BECKY Irving MISCELLANEOUS SAMPLES / Unknown 06/07/2001 11:00 AM CENTERLESS GRINDING MACHINE ADJUSTER 06/07/2001 11:49 AM CENTERLESS GRINDING MACHINE ADJUSTER Historical Provider LAB - PATHOLOGY/C YTOLOGY ORDERABLES Care Teams Manager Decision Support Relationship Specialty Start Date End Date Dayna Maki MD PCP - General 12/24/20 Dayna Maki MD 12/22/20 Eulalia Lema DO Resident - PCP Internal Medicine 02/15/18
== END 2024-09-02 13:25 | disposition home or self-care (01) ==
PROVIDERS: Emergency Provider Student in an Organized Health Care Education/Training Program; PCP Internal Medicine
DX: M54.50 Low back pain, unspecified (principal); G89.29 Other chronic pain; G40.909 Epilepsy, unspecified, not intractable, without status epilepticus; Z87.442 Personal history of urinary calculi; J44.9 Chronic obstructive pulmonary disease, unspecified; I10 Essential (primary) hypertension; M19.90 Unspecified osteoarthritis, unspecified site
CPT/HCPCS: 99283; A9270; J7512

== ENCOUNTER 2024-11-17 09:55 | Outpatient (CLI) | payer OTHER, SELFPAY ==
--- NOTE | ~2024-11-17 | XR_ITS ---
EXAM: XR lumbar spine 2-3V DATE: 11/17/2024 10:34 HISTORY: DORSALGIA OF MULTIPLE SITES . COMPARISON: 09/13/2023. FINDINGS: 5 nonrib-bearing lumbar-type vertebral bodies. Pedicles intact. Normal vertebral body alig nment. Vertebral body heights preserved. Multilevel disc space narrowing, moderate at L2-3. Multiple large bridging osteophytes in the upper lumbar spine. Moderate lower lumbar facet hypertrophy and scl erosis. Possible pars defects at L5. No fracture or dislocation. Surgical clips over the midline uppe r and right pelvis. IMPRESSION: Multilevel degenerative disc disease and facet arthropathy. Possible bilateral L5 pars de fects. Reviewed, dictated and finalized at location K. IMPRESSION: Multilevel degenerative disc disease and facet arthropathy. Possibl e bilateral L5 pars defects.
--- NOTE | ~2024-11-17 | XR_ITS ---
EXAM: XR thoracic spine 2V DATE: 11/17/2024 10:34 HISTORY: DORSALGIA OF MULTIPLE SITES . COMPARISON: X-ray C-spine 05/29/2024; MR T-spine 08/13/2018. FINDINGS: Stable cervical fusion hardware. Vertebral body alignment intact. Vertebral body heights p reserved. Multilevel moderate disc space narrowing and osteophytosis including large bridging osteoph ytes anteriorly and laterally. No traumatic malalignment or fracture. Granulomatous calcifications in the lungs. IMPRESSION: Multilevel moderate degenerative disc disease. Reviewed, dictated and finalized at location K.
[2024-11-17 10:42] LABS: Basophils Absolute Auto 0.1 K/mm3 (0.0-0.1); Basophils Percent Auto 0.6 % (0.2-1.2); Eosinophils Absolute Auto 0.1 K/mm3 (0-0.3); Eosinophils Percent Auto 1.8 % (0-4.4); Hematocrit 37.4 % (37.0-47.0); Hemoglobin 11.3 g/dL (12.0-15.0); Immature Granulocyte Absolute 0.03 K/mm3 (0.00-0.031); Immature Granulocyte Percent A 0.4 % (0-0.5); Lymphocytes Absolute Auto 1.81 K/mm3 (0.9-3.2); Lymphocytes Percent Auto 22.7 % (18.3-44.2); Mean Corpuscular HGB Conc 30.2 g/dl (32-36); Mean Corpuscular Hemoglobin 25.3 pg (26-34); Mean Corpuscular Volume 83.7 fl (80-100); Mean Platelet Volume 10.7 fl (7.4-10.4); Monocytes Absolute Auto 0.5 K/mm3 (0.1-0.6); Neutrophils Absolute Auto 5.5 K/mm3 (1.3-6.7); Neutrophils Percent Auto 68.5 % (45.5-73.1); Platelet Count Result 382 k/mm3 (150-375); Red Blood Count 4.47 M/mm3 (4.2-5.4); Red Cell Distribution Width 16.4 % (11.5-14.5)
[2024-11-17 10:47] LABS: Add Urine Microscopic? YES; Appearance Urine Clear (Clear); Bacteria Urine None Seen /hpf; Bilirubin Urine Negative (Negative); Blood Urine Negative (Negative); Color Urine Yellow (Yellow); Glucose Urine UA Negative (Negative); Ketones Urine Negative (Negative); Leukocyte Esterase Ur Trace LEU/UL (Negative); Nitrate Urine Negative (Negative); Non Pathogenic Casts 0-2; Protein Urine Negative (Negative); RBC Urine 0-2 /hpf (0-2); Specific Grav Ur 1.008 (1.001-1.035); Squamous Epithelial Cell Urine None Seen /hpf (Few); Urobilinogen Urine 0.2 mg/dL (<2.0); WBC Urine 0-5 /hpf (0-3); pH Urine 5.5 (5.0-9.0)
[2024-11-17 11:02] LABS: Alanine Aminotransferase 16 U/L (6-35); Albumin Level 4.2 g/dL (3.5-5.1); Alkaline Phosphatase 161 U/L (38-126); Anion Gap 6 mmol/L (4-12); Aspartate Amino Transferase 28 U/L (14-36); Bilirubin,Total 0.4 mg/dL (0.2-1.3); Blood Urea Nitrogen 17 mg/dL (7-17); Calcium 8.7 mg/dL (8.4-10.2); Carbon Dioxide 32 mmol/L (22-30); Chloride 102 mmol/L (98-107); Cholesterol 161 mg/dL (0-200); Estimated Glomerular Filt Rate 58; Glucose 108 mg/dL (65-110); HDL Direct 46 mg/dL; Potassium 3.9 mmol/L (3.4-5.0); Sodium 140 mmol/L (137-145); Triglycerides 293 mg/dL (<150)
[2024-11-17 11:07] LABS: LDL Cholesterol Direct 60 mg/dL
--- OUTSIDE RECORDS SUMMARY | 2024-11-17 11:12 | XMS_ITS | Encounter Summary ---
Author Organization [facility] Address [facility] [facility] [place] [address] Care Team Providers Care Section Chief Name Role Phone Eulalia Lema DO Primary Care Provider [phone] Dayna Maki MD Primary Care Provider Dayna Maki MD Primary Care Provider Mj Lee MD Primary Care Provider [phone] Dayna Maki MD Unavailable Eulalia Lema DO Unavailable [phone] Dayna Maki MD Primary Care Provider Reason for Visit * Reason Onset Date Comments General 02/28/2018 Results 02/28/2018 Patient requeste d lab results and refill on her HCTZ Appointment 02/28/2018 Encounter Details Date Type Department Care Team (Late st Contact Info) Description 02/28/2018 Telephone [facility] Internal Medicine [address] [facility] [address] [place] [address] Eulalia Lema DO [address] [place] [address] General; Results (Patient requested lab results and refill on her HCTZ); Appointment Social History Tobacco Use Types Packs/Day Years Used Date Smoking Tobacco: Every Day Cigarettes 1 37 Smokeless Tobacco: Never Alcohol Use Standard Drinks/Week Comments No 0 (1 standard drink = 0.6 oz pur e alcohol) Comments No Sex and Gender Information Value Date Recorded Sex Assigned at Not on file 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 Gender Identity Not on file Sexual Orientation Not on file documented as of this encounter Miscellaneous Notes * Telephone Encounter - Jose Celsa - 03/04/2018 1:02 PM CDT 1st Attempt [...] documented as of this encounter Care Teams Section Chief Relationship Specialty Start Date End Date Eulalia Lema DO PCP - General 02/18/18 03/20/18 Dayna Maki MD PCP - General 03/21/18 12/21/20 Dayna Maki MD PCP - General Internal Medicine 12/22/20 12/22/20 Mj Lee MD [address] [facility] [place] [address] PCP - General Internal Medicine 12/23/20 12/23/20 Dayna Maki MD [address] [place] [address] [place] [address] PCP - General 12/24/20 Dayna Maki MD 12/22/20 Eulalia Lema DO Resident - PCP Internal Medicine 02/15/18 documented as of this encounter
--- OUTSIDE RECORDS SUMMARY | 2024-11-17 11:12 | XMS_ITS | Encounter Summary ---
Author Organization [facility] Address [address] [facility] [place] [address] Care Team Providers Care Ux Design Lead Name Role Phone Eulalia Lema DO Primary Care Provider + [phone] Eulalia Lema DO Primary Care Provider + [phone] Eulalia Lema DO Primary Care Provider [phone] Dayna Maki MD Primary Care Provider Dayna Maki MD Primary Care Provider Mj Lee MD Primary Care Provider [phone] Dayna Maki MD Unavailable Eulalia Lema DO Unavailable [phone] Dayna Maki MD Primary Care Provider Reason for Visit * Reason Onset Date Comments MEDICATION REFILL 02/14/2018 refill request Encounter Details Date Type Department Care Team (Late st Contact Info) Description 02/14/2018 Refill [facility] [address] [facility] [address] [place] [address] Eulalia Lema DO [address] [facility] [place] [address] MEDICATION REFILL (refill request ) Social History Tobacco Use Types Packs/Day Years Used Date Smoking Tobacco: Every Day Cigarettes 1 37 Smokeless Tobacco: Never Alcohol Use Standard Drinks/Week Comments No 0 (1 standard drink = 0.6 oz pur e alcohol) Comments No Sex and Gender Information Value Date Recorded Sex Assigned at Not on file 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 Gender Identity Not on file Sexual Orientation [...] documented as of this encounter Care Teams Ux Design Lead Relationship Specialty Start Date End Date Eulalia Lema DO PCP - General 02/14/18 02/14/18 Eulalia Lema DO PCP - General 02/15/18 02/17/18 Eulalia Lema DO PCP - General 02/18/18 03/20/18 Dayna Maki MD PCP - General 03/21/18 12/21/20 Dayna Maki MD PCP - General Internal Medicine 12/22/20 12/22/20 Mj Lee MD [address] [place] [address] PCP - General Internal Medicine 12/23/20 12/23/20 Dayna Maki MD [address] [place] [address] PCP - General 12/24/20 Dayna Maki MD 12/22/20 Eulalia Lema DO Resident - PCP Internal Medicine 02/15/18 documented as of this encounter
--- OUTSIDE RECORDS SUMMARY | 2024-11-17 11:12 | XMS_ITS | Clinical Summary ---
Author Organization [facility] Address [address] [place] [address] Phone Care Team Providers Care Cable Installer Repairer Name Role Phone TAQUERIA CADENA, JOSE Benson Unavailable [phone] SAMSON JANG MD Unavailable [phone] Reason for Visit and Chief Complaint The Chief Complaint is: Follow up on C7-T1 Interlaminar epidural 03/21/2023 ~90% - 0 ongong Plan of Treatment No Plan of Treatment Recorded Assessments Includes: Assessments from this encounter Findings - Cervical spondylosis with radiculopathy [M47.22 - Other spondylosis with radiculopathy, cervical region] - Last Documented On 04/11/2023 2:21PM ; [facility] - Cervical spine stenosis [M48.02 - Spinal stenosis, cervical region] - Last Documented On 04/11/2023 2:21PM ; [facility] - Cervical radiculopathy [M54.12 - Radiculopathy, cervical region] - Last Documented On 04/11/2023 2:21PM ; [facility] - Myalgia and myositis [M79.18 - Myalgia, other site] - Last Documented On 04/11/2023 2:21PM ; [facility] Medical Equipment - Implanted Devices Includes: Current Devices No Medical Equipment Recorded Medications Includes: Medications discussed during this encounter and other current Medications Discontinued / Stopped on this date JOSE CADENA on 02/27/2023 ALPRAZolam 0.5 MG Oral Tablet Provider: JOSE CADENA Diagnosis: Last Documented On 3 1:28PM By Lenora CID ; [facility] predniSONE 50 MG Oral Tablet Provider: JOSE GOODEN Diagnosis: Spinal stenosis, cervical region Last Documented On 3 1:28PM By Lenora CID ; [facility] Topiramate 50 MG Oral Tablet Provider: SAMSON JANG MD Diagnosis: Last Documented On 3 1:28PM By Lenora CID ; [facility] New / Renewed during this visit JOSE CADENA on 04/11/2023 diphenhydrAMINE HCl 50 MG Oral Capsule Provider: JOSE CADENA 1 day supply: 1 capsule, 0 refills Diagnosis: Spinal stenosis, cervical region take 1 tablet by mouth 1 fredrick r prior to procedure Pharmacy: [address], [facility], [phone] - Last Documented On 06/21/2023 9:04AM By Snehal CID ; [facility] Diclofenac Sodium 75 MG Oral Tablet Delayed Release Provider: JOSE CADENA 30 day supply: 30 tablet, 0 refills Diagnosis: Spinal stenosis, cervical region One tablet dailystop ketoralac Pharmacy: [address], [facility], [phone] - Last Documented On 3 3:47PM By JOSE CADENA ; [facility] predniSONE 50 MG Oral Tablet Provider: JOSE CADENA 3 day supply: 3 tablet, 0 refills Diagnosis: Spinal stenosis, cervical region 1 po 13 hours prior to proce dure, 1 po 7 hours prior and 1 po 1 hour prior to procedure Pharmacy: [address], [facility], [phone] - Last Documented On 06/21/2023 9:04AM By Snehal CID ; [facility] ALPRAZolam 0.5 MG Oral Tablet Provider: JOSE CADENA 1 day supply: 2 tablet, 0 refills Diagnosis: Other spondylosis with radiculopathy, cervical region as directed 1 po 1 hour prio r to procedure, 1 po 30 minutes prior to procedure Pharmacy: [address], [facility], [phone] - Last Documented On 06/21/2023 9:03AM By Snehal CID ; [facility] Current Medications (continue as prescribed) Lidocaine 5% External Patch 09/20/2023 Provider: JOSE GOODEN Diagnosis: Spinal stenosis, cervical region as directed apply patch to a ffected area for 12 hours and remove for 12 hours Last Documented On 4 3:21PM By JOSE CADENA ; [facility] Varenicline Tartrate 1 MG Oral Tablet 06/20/2023 Pro vider: SAMSON JANG MD Diagnosis: Last Documented On 06/21/2023 9:05AM By Snehal CID ; [facility] Ketorolac Tromethamine 10 MG Oral Tablet 06/08/2023 Provider: SAMSON JANG MD Diagnosis: Last Documented On 06/21/2023 9:06AM By Snehal CID ; [facility] Latanoprost 0.005% Ophthalmic Solution 06/05/2023 Pr ovider: Diagnosis: Last Documented On 06/21/2023 9:05AM By Snehal CID ; [facility] QUEtiapine Fumarate 200 MG Oral Tablet 01/10/2023 Pr ovider: Diagnosis: AT BEDTIME Last Documented On 3 10:08AM By Snehal CID ; [facility] Melatonin 5 MG Oral Capsule 12/20/2022 Provider: Diagnosis: Last Documented On 3 11:26AM By Snehal CID ; [facility] Banophen 25 MG Oral Capsule 12/19/2022 Provider: SAMSON JANG MD Diagnosis: Last Documented On 3 11:22AM By Snehal CID ; [facility] Pregabalin 150 MG Oral Capsule 12/19/2022 Provider: SAMSON JANG MD Diagnosis: Last Documented On 3 11:23AM By Snehal CID ; [facility] QUEtiapine Fumarate 100 MG Oral Tablet 12/05/2022 Pr ovider: Diagnosis: Last Documented On 3 11:24AM By Snehal CID ; [facility] Ventolin HFA 108 (90 Base) M CG/ACT Inhalation Aerosol Solution 11/30/2022 Provider: SAMSON JANG MD Diagnosis: Last Documented On 3 11:25AM By Snehal CID ; [facility] hydroCHLOROthiazide 12.5 MG Oral Tablet 11/28/2022 P rovider: SAMSON JANG MD Diagnosis: Last Documented On 3 11:22AM By Snehal CID ; [facility] Dicyclomine HCl 20 MG Oral Tablet 11/27/2022 Provide r: SAMSON JANG MD Diagnosis: Last Documented On 3 11:23AM By Snehal CID ; [facility] Methocarbamol 750 MG Oral Tablet 11/24/2022 Provider : SAMSON JANG MD Diagnosis: Last Documented On 3 11:23AM By Snehal CID ; [facility] Atorvastatin Calcium 40 MG Oral Tablet 11/24/2022 Pr ovider: SAMSON JANG MD Diagnosis: Last Documented On 3 11:23AM By Snehal CID ; [facility] Candesartan Cilexetil 32 MG Oral Tablet 11/20/2022 P rovider: SAMSON JANG MD Diagnosis: Last Documented On 3 11:22AM By Snehal CID ; [facility] Medications Administered Includes: Administered [...] 99 Last Documented: On 04/11/2023 1:30PM ; [facility] Results Includes: Results discussed [...] aspect of daily living. She has a [employer] rep help with cooking and self care. She [...] 04/11/2023 Last Documented On 3 2:21PM ; [facility] No consumption of alcohol 04/11/2023 Last Documented On 3 2:21PM ; [facility] Not using drugs 04/11/2023 Last Documented On 3 2:21PM ; [facility] Difficulty walking 12/20/2022 Last Documented On 3 1:24PM ; [facility] Smoking packs of cigarettes per day 1 Last Documented On 3 1:24PM ; [facility] Smoking Status Unknown Procedures and Surgical History Includes: Procedures from this encounter Procedures Code Diagnosis Performing Provider Service L ocation Service Date surgery Last Documented On 3 1:25PM ; [facility] administered injection of tr igger point(s), three [...] ~ Last Documented On 3 1:25PM ; [facility] use of tobacco assessment performed 1000F Last Documented On 3 1:25PM ; [facility] standardized depression screening: negative for symptoms 3351F Last Documented On 3 1:25PM ; [facility] review of medications documented 1160F Last Documented On 3 1:25PM ; [facility] screening for adult depression: impressi on and score 0 Last Documented On 3 1:25PM ; [facility] Clinical summary provided to patient ~ Patient understands and agrees with treatment plan. Questions answered Last Documented On 3 1:25PM ; [facility] SOAPP-R: total score 3 Last Documented On 3 1:25PM ; [facility] Surgical History Last Updated No Pacemaker 04/11/2023 Last Documented On 3 2:21PM ; [facility] Medical History Includes: Medical History addressed during this encounter Description Last Updated Denies a fear of falling. 04/11/2023 Last Documented On 3 2:21PM ; [facility] Has had no fall in the last 12 months. 0 04/11/2023 Last Documented On 3 2:21PM ; [facility] CT/MRI September 2022neckGRMCshoulderFeb 202 [facility] 04/11/2023 Last Documented On 3 2:21PM ; [facility] Currently wearing eyeglasses 04/11/2023 Last Documented On 3 2:21PM ; [facility] Injection/Nerve blocks 04/11/2023 Last Documented On 3 2:21PM ; [facility] Message/Acupressure 04/11/2023 Last Documented On 3 2:21PM ; [facility] No Pain Pump 04/11/2023 Last Documented On 3 2:21PM ; [facility] No Spinal cord stimulator 04/11/2023 Last Documented On 3 2:21PM ; [facility] Pain Clinic 04/11/2023 Last Documented On 3 2:21PM ; [facility] Physical therapy 04/11/2023 Last Documented On 3 2:21PM ; [facility] Please list all illnesses/co nditions you have been diagnosed with: HPTN; peripheral vascular disease; high cholesterol; restricted breathing disorder; lung stone; seizures; allergies; depression 04/11/2023 Last Documented On 3 2:21PM ; [facility] Please list all surgeries: November neck surgerygallbladder removal 2020hysterectomy 2001appendectomy 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 on R femur removed 199804/11/2023 Last Documented On 3 2:21PM ; [facility] Severe Pain 04/11/2023 Last Documented On 3 2:21PM ; [facility] Treatment with TENS unit 04/11/2023 Last Documented On 3 2:21PM ; [facility] Last Documented On 3 2:21PM ; [facility] Family History Includes: Family History addressed during this encounter Description Last Updated Maternal history of family history of is chemic heart disease 04/11/2023 Last Documented On 3 2:21PM ; [facility] Maternal history of family history of ki dney disease 04/11/2023 Last Documented On 3 2:21PM ; [facility] Review of Systems Includes: Review of Systems [...] Active Last Documented On 4 2:44PM ; [facility] NSAIDs Allergy 12/20/2022 Active Last Documented On 4 2:44PM ; [facility] Meloxicam Allergy 12/20/2022 Active Last Documented On 4 2:44PM ; [facility] Effexor XR Allergy 12/20/2022 Active Last Documented On 4 2:44PM ; [facility] Contrast Dye Allergy 12/20/2022 Active Last Documented On 4 2:44PM ; [facility] Note: THROAT CLOSES AND STOPS BREATHING Aspirin Allergy 12/20/2022 Active Last Documented On 4 2:44PM ; [facility] Encounters Encounter Provider Location Date Check-In Time Check-Out Time Diagnosis PAIN MANAGEMENT FOLLOW UP JOSE CADENA [facility] 04/11/20 23 1:11PM 1:52PM Spinal Stenosis Cervical,Myalgia and Myositis,Cervica l Radiculopathy,Sp ondylosis with Radiculopathy Cervical Region Insurance Includes: Active Insurance Policies Plan Name Member ID Group # Subscriber Relationship Effect austin Dates - [facility] [id number] ZUMA SOSA Se lf Clinical Notes Includes: Clinical Notes from this encounter * Progress note Date Encounter Last Documented by 04/11/2023 PAIN MANAGEMENT FOLLOW UP Last d ocumented on 04/11/2023; 2:21 PM, JOSE CADENA; [facility] Chief Complaint The Chief Complaint is: Follow [...] aspect of daily living. She has a [employer] rep help with cooking and self care. She [...] / Procedural: No Pacemaker. Tests: [facility] September [facility] and CT[facility]MRI September 2022[facility]. Physical Trauma: Has had no fall [...] extremity C5/6 dermatome, C6/7 dermatome in hand. Patient Service Technician Pst strength decreased on left. Psych: No apparent [...] 50% of this time spent in direct [id number] counseling and coordination of care. Results of [...] but may be subject to typographical or biblical languages professor errors. Verify all diagnoses, medications, dosages, and [...]
--- OUTSIDE RECORDS SUMMARY | 2024-11-17 11:12 | XMS_ITS | CONTINUITY OF CARE DOCUMENT ---
Author Name aidan, moniqueinez Address Unknown Organization [facility] Address [address] [place] [address] Phone [phone] Care Team Providers Care Electrician Sound Name Role Phone Fausto Stinson MD Unavailable SAMSON JANG MD Unavailable [phone] SAMSON JANG MD Unavailable PROBLEMS Condition Status [...] In-person encounter Office Visit Fausto Stinson MD [place] [facility] 0 - 8 In-person encounter Office Visit Fausto Stinson MD [place] [facility] 1 - 1 In-person encounter Office Visit Fausto Stinson MD [place] [facility] Dizziness 5 - 8 In-person encounter Office Visit Fausto Stinson MD [place] [facility] 5 - 6 In-person encounter Office Visit Fausto Stinson MD [place] [facility] 8 - 2 In-person encounter Office Visit Fausto Stinson MD [place] [facility] 5 - 7 In-person encounter Office Visit Fausto Stinson MD [place] [facility] HTN essentialHypercholesterolemia 6 - 9 In-person encounter Office Visit Fausto Stinson MD [place] [facility] 9 - 8 In-person encounter Office Visit Fausto Stinson MD [place] [facility] PAD - RLE with ulcerPAD - BLE with claudicationPAD - BLE with rest pain 4 - 4 In-person encounter Office Visit Chivo Gomes MD [place] [facility] Chest pain (unspecified)Abnormal electrocardiogramChest pain - precordialPVD - unspecifiedPreop cardiovasc. examinationAngina - unspecified 3 - 3 In-person encounter Office Visit Chivo Gomes MD [place] [facility] COPDTobacco abuseLeg pain, bilateral 9 - 2 In-person encounter Office Visit Antolin Brink MD [place] [facility] Autoimmune disease, not elsewhere classified 7 - 1 In-person encounter Office Visit Antolin Brink MD [place] [facility] Easy bruisingNeuropathyArthritisBipolar affective psychosis VITAL SIGNS Date Observation Value Provider Body Mass Index (Ratio) 30.21 kg/m2 Rosie Stinson MD blood pressure, diastolic 84 mm[Hg] Li nkLogic blood pressure, systolic 128 mm[Hg] Joana kLogic blood pressure, diastolic 84 mm[Hg] Li nkLogic blood pressure, systolic 128 mm[Hg] Joana kLogic blood pressure, diastolic 84 mm[Hg] Ca therine [place] blood pressure, systolic 128 mm[Hg] Cat herine [place] pulse rate 99 /min Alena Sebastián oxygen saturation, oximetry 96 % Alena [place] respiratory rate E&M 14 /min Catheri ne Sebastián weight E&M 176 [lb_av] Alena [place] blood pressure, cuff size regular Ca therine Sebastián height E&M 64 [in_i] Alena Sebastián Body [...] respiratory rate E&M 20 /min Pelon Alexander [facility] RN pulse rate 101 /min [...] 3.5-5.2 5 sodium, serum 142 mmol/L [facility] [phone]/03/0 5 urea nitrogen/creatinin e ratio, serum 21 [...] cell distribution width, size density 52.5 fL [facility] immature granulocytes, percentage of total cells, blood 0.5 % [facility] - 8 nucleated red blood cells as percent of blood leukocytes 0.0 % [facility] red blood cell (erythrocyte) count, per high power field 0.0 10*3/UL [employer] - 8 eosinophils as percent of blood leukocytes 1.0 % [facility] - 8 neutrophils as percent of blood leukocytes 73.0 % [facility] 8 Absolute Neutrophils 7.2 CELLS/UL [facility] 1.5 - 7.8 8 basophils as percent of blood leukocytes 0.8 % [facility] - 8 Absolute Basophils 0.1 CELLS/UL [facility] 0.0 - 0.2 8 monocytes as percent of blood leukocytes 5.6 % [employer] - 8 Absolute Monocytes 0.6 CELLS/UL [facility] 0.2 - 1.0 8 lymphocytes as percent of blood leukocytes 19.1 % [facility] 8 Absolute Lymphocytes 1.9 CELLS/UL LinkLogic [...] once a day Negra Rojo Imported from [place] [employer]: [employer] ( at 08:43:20 AM) duloxetine 60 mg capsule,delayed release(DR/EC) active Take 60 mg by mouth once a day Negra Rojo Imported from [place] [employer]: [employer] ( at 08:43:20 AM) candesartan 8 mg tablet completed Take 1 tablet by mouth once a day - 08/22 Pelon Patricio RN Imported from [place] [employer]: [employer] ( at 08:43:20 AM) acetaminophen 500 mg tablet active Take 1000 mg by mouth every six hours as needed Negra Rojo Imported from [place] [employer]: [employer] ( at 08:43:20 AM) trazodone 100 mg tablet active Take 100 mg by mouth every night Negra Rojo Imported from [place] [employer]: [employer] ( at 08:43:20 AM) Crestor 10 mg [...] completed ONE TAB. DAILY - 07/23 Negra Rjoo TRAZODONE HCL 100 MG ORAL TABLET completed [...] SOLUTION completed as needed - 08/25 Kareen Garevy TIZANIDINE HCL 4 MG ORAL TABLET completed [...] Antolin Brink MD VITAMIN D TABLET completed 61521 international units once monthly - 08/25 Kareen [...] yes Serena Shi social history E&M Patient tehsa mercedes smokes every day. 1PPD x 35 [...] Policy type / Coverage type Mckayla red democrat [place] MEDICAID (2) Medicaid [id number] ADVANCE DIRECTIVES Name Date DISCUSSED - NO DECISION MADE TREATMENT PLAN Date Name Performer [id number],C, B P today: 129/86 P rior BP: 107/68 (08/12/2021) Labs Reviewed: C reat: 0.86 (09/24/2018) C hol: 235 (09/24/2018) HDL: 66 (09/24/2018) Her updated medication list for this problem includes: Candesartan 8 Mg Tablet (Candesartan) ..... Take 1 tablet by mouth once a day Hydrochlorothiazide 12.5 Mg Tablet (Hydrochlorothiazide) ..... Take 1 tablet by mouth every day Fausto Stinson MD [id number],C,F INDINGS: L t Upper Ext: Triphasic waveforms [...] also do angio left upper extremity. C [facility] upper extremities arterial duplex. Had intact flow of her NAV Fausto Stinson MD [id number],C, E cho 08/18/21 C ONCLUSIONS: 1 . [...] to one of the meds given at [facility]. I discussed with her regarding cardiac cath. At present, she wouldlike to defer unless she has increased episodes of CP. WIll have her come back in a month so we can review and see if there is any sx that need to be addressed. Fausto Stinson MD [id number],C,M ay be related to low BP will check echo. Fausto Stinson MD [id number],C, H as had some workup done, does not know if she has lupus or not Fausto Stinson MD [id number],C, C heck upper extremities arterial duplex. Had intact flow of her LUE Fausto Stinson MD [id number],C,ANAPHALAXIS T O ASPIRIN Fausto Stinson MD [id number],C, S topped smoking Fausto Stinson MD [id number],C,R educed HCTZ and candisartan B P today: 107/68 P rior BP: 120/76 (05/27/2021) Labs Reviewed: C reat: 0.86 (09/24/2018) C hol: 235 (09/24/2018) HDL: 66 (09/24/2018) Her updated medication list for this problem includes: Hydrochlorothiazide 25 Mg Tablet (Hydrochlorothiazide) ..... 1 tablet once a day Candesartan 16 Mg Tablet (Candesartan) ..... Take 16 mg by mouth once a day Fausto Stinson MD [id number],S,S ays that she needs a nebulizer will see if we can arrange that Fausto Stinson MD [id number],C, H as had some workup done, does not know if she has lupus or not Fausto Stinson MD [id number],C,i ntermittent vague chest pains, will try to get her stress test, does not tolerate adenosine apparently, had issues in jill past Fausto Stinson MD [id number],C, m icrovascular disease. will arrange for her [...] Currently does not have it. [facility]. May 27, 2021 S mokes 2-3 cigarettes a day Fausto Stinson MD [id number],S, S x have improved since she stopped smoking, derives benefit more so on the R leg where she has been putting her nitro patch. Advised her to split the nitro pack in half and apply to both feet. November 24, 2020 C urrently not using nitro. May 27, 2021 Needs refill on nitor pills Fausto Stinson MD [id number],C,C lelia upper extremities arterial duplex Fausto Stinson MD [id number],C, H er updated medication list for this [...] to one of the meds given at [facility]. I discussed with her regarding [...] Currently does not have it. Will ask [facility] to send request. May 27, 2021 [...] Currently does not have it. [facility] Fausto Stinson MD Cardiology [...] fumarate) ..... 1 puff twice daily [facility] Cardiology [place] : O rders: A rterial - SENSILASE (CPT-66594) S ED RATE BY MODIFIED WESTERGREN (809) L IPID PANEL (6640) [facility] Cardiology [place] :Will order echo and regadenosine stress test. O rders: E KG (CPT-74697) C omplete Echo (CPT-64579) S TR - Adenosine (CPT-92593) [facility] Hem/Onc:SUMMER titer 1: 160. I will check comprehensive SUMMER panel. Referal to rheumatology as above. Orders: A NA PANEL, COMPREHENSIVE (98943) A NA SCREEN REFL TO TITER, IFA (249) R heumatoid Arthritis Factor (493750) 9 9214 MOD Complex (CPT-23265) Antolin Brink MD Hem/Onc:The patient' s work up for Von Willebrand's disease was unremarkable. She was noted to have a positive SUMMER titer 1:160. I recommend referral to rheumatology for further evaluation. Orders: S NOMED-CT: [id number] Current Medications Documented (SCT-[id number]) P rotime (43022) P ARTIAL THROMBOPLASTIN TIME, ACTIVATED (763) 9 9214 MOD Complex (CPT-74720) Antolin Brink MD Hem/Onc:The patient has extensive [...] follow up. Orders: C BC (INCLUDES DIFF/PLT) (3950) S NOMED-CT: [id number] Current Medications Documented (SCT-[id number]) C RYOGLOBULIN (%CRYOCRIT), SERUM (22192) P TT+F VIII+vWF Act+vWF Ag+v... (613003) A NANO GROUP AND RH TYPE (7788) A NCA Panel (890732) A NA SCREEN IFA W/REFL TITER IFA (66987) S ED RATE BY MODIFIED KLEVER (148) 7 1319 MOD C omplex (CPT-69648) Antolin Brink MD Date Name Complete Echo [...] EKG Chivo Gomes MD complet ed SNOMED-CT: 121576355 740253 Current Medications Documented Antolin Brink MD completed SNOMED-CT: 715655095 886438 Current Medications Documented Antolin Brink MD completed
--- OUTSIDE RECORDS SUMMARY | 2024-11-17 11:12 | XMS_ITS | Encounter Summary ---
Author Organization [facility] Address [address] [place] [address] Care Team Providers Care Hot Wire Glass Tube Cutter Name Role Phone Eulalia Lema DO Primary Care Provider [phone] Dayna Maki MD Primary Care Provider Dayna Maki MD Primary Care Provider Mj Lee MD Primary Care Provider [phone] Dayna Maki MD Unavailable Eulalia Lema DO Unavailable [phone] Dayna Maki MD Primary Care Provider Reason for Visit * Reason Onset Date Comments Concerns 02/18/2018 1st attempt to c ontact and R/O triage for ACS LM Encounter Details Date Type Department Care Team (Late st Contact Info) Description 02/18/2018 Telephone [facility] General Internal Medicine [address] [address] Eulalia Lema DO [address] [facility] [place] [address] Concerns (1st attempt to contact [...] on file Legal Sex Female 11:00 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 Left message @ [phone] with affiliation and contact number, , no pertient patient information left on voicemail. Provided patient with closing statement on voicemail.If anything new develops,if anything gets worse or if you become increasingly concerned for any reason, please seek out immediate medical Attention. Will re attempt at a later time. Routed to PCP * Telephone Encounter - Mary Clarke - 02/18/2018 11:38 AM CDT PT: Melinda Persaud PH: [phone] Patient called in concerned about the lisinopril [...] documented as of this encounter Care Teams Hot Wire Glass Tube Cutter Relationship Specialty Start Date End Date Eulalia Lema DO PCP - General 02/18/18 03/20/18 Dayna Maki MD PCP - General 03/21/18 12/21/20 Dayna Maki MD PCP - General Internal Medicine 12/22/20 12/22/20 Mj Lee MD [address] [place] [address] PCP - General Internal Medicine 12/23/20 12/23/20 Dayna Maki MD [address] [place] [address] PCP - General 12/24/20 Dayna Maki MD 12/22/20 Eulalia Lema DO Resident - PCP Internal Medicine 02/15/18 documented as of this encounter
--- OUTSIDE RECORDS SUMMARY | 2024-11-17 11:12 | XMS_ITS | Clinical Summary ---
Author Organization [facility] Address [facility] [place] [address] Care Team Providers Care Scrubber Machine Tender Name Role Phone Unavailable Primary Care Provider [...] (198 lb 6.1 oz) 09/13/2016 9:17 AM ELECTRONIC TEST TECHNICIAN Height 162.6 cm (5' 4 ) 09/13/2016 9:17 AM ELECTRONIC TEST TECHNICIAN Body Mass Index 34.05 09/13/2016 9:17 AM ELECTRONIC TEST TECHNICIAN Plan of Treatment Health Maintenance Due Date [...] Screening with HPV 1993 Mammogram Screening 2003 Pneumococcal Vaccine: 50+ Ye ars (1 of 1 - PCV) 2013 Zoster Vaccines (1 of 2) 2013 COVID-19 Vaccine ( - 2023-2 5 season) 2024 RSV Immunization or 60+ Years (1 [...] Documents on File Type Date Recorded Patient Cavalry Officer Expl anation Advance Directives and Sofi mcgowan Will 12/15/2015 POWER OF FINAL CIGAR AND BOX EXAMINER
--- OUTSIDE RECORDS SUMMARY | 2024-11-17 11:12 | XMS_ITS | Encounter Summary ---
Author Organization [facility] Address [facility] [facility] [place] [address] Care Team Providers Care Calf Skinner Name Role Phone Eulalia Lema DO Primary Care Provider [phone] Dayna Maki MD Primary Care Provider Dayna Maki MD Primary Care Provider Mj Lee MD Primary Care Provider [phone] Dayna Maki MD Unavailable [phone] Eulalia Lema DO Unavailable [phone] Dayna Maki MD Primary Care Provider Reason for Visit * Reason Onset Date Comments General 02/19/2018 black stools Encounter Details Date Type Department Care Team (Late st Contact Info) Description 02/19/2018 Nurse Triage [facility] General Internal Medicine [address] [facility] [address] [place] [address] Eulalia Lema DO [address] [place] [address] General (black stools) Social History Tobacco Use Types Packs/Day Years Used Date Smoking Tobacco: Every Day Cigarettes 1 37 Smokeless Tobacco: Never Alcohol Use Standard Drinks/Week Comments No 0 (1 standard drink = 0.6 oz pur e alcohol) Comments No Sex and Gender Information Value Date Recorded Sex Assigned at Not on file 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 n/a Protocols used: STOOLS - UNUSUAL [id number]-[id number], RECTAL [id number] Patient given within 2 weeks disposition, patient [...] documented as of this encounter Care Teams Calf Skinner Relationship Specialty Start Date End Date Eulalia Lema DO PCP - General 02/18/18 03/20/18 Dayna Maki MD PCP - General 03/21/18 12/21/20 Dayna Maki MD PCP - General Internal Medicine 12/22/20 12/22/20 Mj Lee MD [address] [place] [address] [place] [address] PCP - General Internal Medicine 12/23/20 12/23/20 Dayna Maki MD [address] [place] [address] [place] [address] PCP - General 12/24/20 Dayna Maki MD 12/22/20 Eulalia Lema DO Resident - PCP Internal Medicine 02/15/18 documented as of this encounter
--- OUTSIDE RECORDS SUMMARY | 2024-11-17 11:12 | XMS_ITS | Data Portability ---
[facility] [address] [place] [address] Care Team Providers Care Form Maker Plaster Name Role Phone KENNEDY GARCIAA Pain Management KACY WOMACK Vessel Master PABLO GAFFNEY Neurosurgeon IONA MILIAN Professional Athletes Coach JOSELO ALDANA Primary Care Provider [phone] Assessment No assessment recorded. Plan of Treatment Reminders Order Date Submit Date Provider Last Modified By Organization Details Last Modified Time Details Appointments None recorded. Lab CBC 2017 018 [facility], [address] [facility], [address], [place], [address], 8 03:07:58 CMP, serum or plasma 2017 018 [facility], [address] [facility], [address], [place], [address], 8 03:07:59 TSH, ultra-sens itive, serum 2017 018 [facility], [address] [facility], [address], [place], [address], 8 03:08:00 lipid panel, serum 2017 018 [facility], [address] [facility], [address], [place], [address], 8 03:08:02 HbA1c (hemoglobi n A1c), blood 2017 018 [facility], [address] [facility], [address], [place], [address], 8 03:08:04 Referral None recorded. Procedures None recorded. Surgeries None recorded. Imaging None recorded. Medication Orders Ventolin HFA 90 mcg/actuat ion aerosol inhaler 2020 021 [facility], [address] [place] [address] , [address], [place], [place], [id number], 1 17:50:31 hydrochlor othiazide 25 mg tablet 2020 021 [facility], [address] [place] [address] , [address], [place], [place], [id number], 1 17:50:31 cetirizine 10 mg tablet 2016 017 [id number], [address] [place], [place], [id number], 7 11:20:10 Patient TargetsNo targets recorded. Patient Instructions Encounter Date Encounter Id Patient Instructions Last Modified By Organization Details Last Modified Time 12/12/2017 [id number] advised to quit smoking nsuthan Not available [...] contr ast No observ ation record ed. [facility] [address] [place], [address], 05/08/2017 14:09:38 02/07/20 18 02/06/2018 MAMMO , scree lola, bilat eral No observ ation record ed. [email or web address] [facility] (Imaging) [address] [place], [address], 02/08/2018 18:52:03 02/07/20 18 02/06/2018 XR, foot No observ ation record ed. [email or web address] (Imaging) [address] [place], [address], 02/13/2018 08:49:09 02/07/20 18 02/06/2018 XR, knee No observ ation record ed. [email or web address] [address] (Imaging) [address] [place], [address], 02/13/2018 08:48:42 02/07/20 18 02/06/2018 XR, ankle No observ ation record ed. [email or web address] (Imaging) [address] [place], [address], 02/13/2018 08:48:24 02/07/20 18 02/06/2018 XR, knee No observ ation record ed. [email or web address] [facility] (Imaging) [address] [place], [address], 02/14/2018 13:59:05 07/30/19 19 07/30/2018 XR, shoul jv, 2 or more view No observ ation record ed. [email or web address] [facility] (Imaging) [address] [place], [address], 09/03/2018 11:11:40 08/30/19 19 08/29/2018 CT, chest , w/o contr ast No observ ation record ed. [email or web address] [address] [place], [address], 09/10/2018 10:13:52 Result Notes None recorded. Problems Name Problem SNOMED Code Status Onset Date Resolution Date Notes Provider Name and Address Organization Details Recorded Time Edema 386945059 Completed 12/12/2017 Joselo Aldana MD Attn: Accounting ,[address] [place], [place], [address] [place] [address] , [facility] 8 14:32:14 Acute exacerbat ion of chronic obstructi ve pulmonary disease 774545347 Completed 12/12/2017 Joselo Aldana MD Attn: Accounting ,[address] [facility], [place], [place], [address] [place] [address] , [facility] 8 14:32:19 Dizziness 572876114 Completed 12/12/2017 Arik Aldana MD Attn: Accounting ,[address], [place], [address] [place] [address] , [facility] 8 14:31:38 Hyperlipi demia 10700726 Active Tennille Quiroga PA-C Attn: Accounting ,[address], [place], [address] [place] [address] , [facility] 6 14:01:24 Tobacco dependenc e syndrome 99905645 Active Maribel Nieto LPN null, [place] - [facility] 4 09:16:25 Obesity 270729931 Active Tennille Quiroga PA-C Attn: Accounting ,[address], [place], [address] [place] [address] , [facility] 6 14:01:24 Emphysema Completed 12/12/2017 Joselo Aldana MD Attn: Accounting ,[address], [place], [address] [place] [address] , [place] [facility] 8 14:37:08 Irritable bowel syndrome 08241093 Completed 12/12/2017 Joselo Aldana MD Attn: Accounting ,[address], [address] [place] [address] , [facility] 8 14:49:24 Neuropath y 220708133 Active Dr.Nas eladia Aldana MD Attn: Accounting ,[address] [facility], [place], [address] , [place] [facility] 8 14:41:48 Vitamin D deficienc y 76227798 Active Tennille Quiroga PA-C Attn: Accounting ,[address] [facility], [place], [address] , [place] [facility] 5 14:19:24 Schizoaff ective disorder 60452827 Active psych/ Chestn ut Joselo Aldana MD Attn: Accounting ,[address] [facility], [place], [address] , [place] [facility] 8 14:43:45 Chronic obstructi ve pulmonary disease 23002967 Active Tennille Quiroga PA-C Attn: Accounting ,[address] [facility], [place], [address] , [place] [facility] 6 14:01:24 Chronic renal impairmen t Active sees nephro /DR.Da anupam Aldana MD Attn: Accounting ,[address] [facility], [place], [address] [place] [address] , [place] [facility] 8 14:47:43 Personali ty disorder 23943122 Completed 12/12/2017 Joselo Aldana MD Attn: Accounting ,[address] [facility], [place], [address] [place] [address] , [place] [facility] 8 14:50:17 Asthma 868833917 Completed 12/12/2017 Joselo Aldaan MD Attn: Accounting ,[address] [facility], [place], [address] [place] [address] , [place] [facility] 8 14:36:59 Chronic back pain 230924442 Completed 12/12/2017 Joselo Aldana MD Attn: Accounting ,[address] [facility], [place], [address] , [place] [facility] 8 14:49:17 Fatigue 78121957 Active Tennille Quiroga PA-C Attn: Accounting ,[address] [facility], [place], [address] , [facility] 5 16:53:23 Slurred speech 666203820 Completed 12/12/2017 Joselo Aldana MD Attn: Accounting ,[address] [place], [address] , [facility] 8 14:32:05 Migraine without aura 21075704 Completed 12/12/2017 Joselo Aldana MD Attn: Accounting ,[address], [place], [address] [place] [address] , [facility] 8 14:31:09 Cocaine dependenc e in remission 948321666 Completed 12/12/2017 Joselo Aldana MD Attn: Accounting ,[address], [place], [address] [place] [address] , [facility] 8 14:50:25 Hallucino gen dependenc e in remission 661329019 Active KRISTOPHER Rincon Attn: Accounting ,[address], [place], [address] [place] [address] , [facility] 4 11:41:23 Overflow incontine nce of urine 117199003 Completed 12/12/2017 Joselo Aldana MD Attn: Accounting ,[address], [address] [place] [address] , [facility] 8 14:31:44 Incontine nce of feces 38653931 Completed 12/12/2017 Joselo Aldana MD Attn: Accounting ,[address] [place], [address] , [facility] 8 14:50:38 Disorder of thyroid gland 69641022 Completed 12/12/2017 Joselo Aldana MD Attn: Accounting ,[address], [place], [address] [place] [address] , [facility] 8 14:49:06 Malodorou s urine 321874370 Completed 12/12/2017 Joselo Aldana MD Attn: Accounting ,[address] [place], [address] , [place] [facility] 8 14:32:09 Spinal stenosis 78068905 Active Dr.Nas augie Aldana MD Attn: Accounting ,[address] [place], [address] , [place] [facility] 8 14:42:35 Knee pain Completed 12/12/2017 Joselo Aldana MD Attn: Accounting ,[address] [place], [address] , [place] [facility] 8 14:32:02 Pain of hip region 43232254 Completed 12/12/2017 Joselo Aldana MD Attn: Accounting ,[address] [place], [address] , [place] [facility] 8 14:31:18 Chronic kidney disease stage 3 763416844 Completed 12/12/2017 Joselo Aldana MD Attn: Accounting ,[address] [place], [address] , [place] [facility] 8 14:50:12 Hyperkale romero 08497627 Completed 12/12/2017 Joselo Aldana MD Attn: Accounting ,[address] [place], [address] , [place] [facility] 8 14:36:28 Allergic rhinitis 71190512 Completed 12/12/2017 Joselo Aladna MD Attn: Accounting ,[address] [place], [address] , [place] [facility] 8 14:37:12 Increased blood pressure 08692932 Completed 12/12/2017 Joselo Aldana MD Attn: Accounting ,[address] [place], [address] , [place] [facility] 8 14:30:35 Pharyngit is 161297642 Completed 201612/12/2017 Joselo Aldana MD Attn: Accounting ,[address] [place], [address] , [place] [facility] 8 14:31:34 Upper respirato ry infection 96519039 Completed 201612/12/2017 Joselo Aldana MD Attn: Accounting ,[address] [place], [address] , [place] [facility] 8 14:31:15 Systemic lupus erythemat osus 98462251 Active 2016 Tennille Quiroga PA-C Attn: Accounting ,[address] [place], [address] , [place] [facility] 7 11:26:23 Chronic neck pain 65002826354 07 Completed 201612/12/2017 Joselo Aldana MD Attn: Accounting ,[address] [place], [address] , [place] [facility] 8 14:49:21 HIV screening Completed 201612/12/2017 Joselo Aldana MD Attn: Accounting ,[address] [place], [address] , [place] [facility] 8 14:30:23 Acute bronchiti s 29463029 Completed 201612/12/2017 Joselo Aldana MD Attn: Accounting ,[address] [place], [address] , [place] [facility] 8 14:30:12 Adverse reaction to drug 02619154 Completed 201612/12/2017 Joselo Aldana MD Attn: Accounting ,[address] [place], [address] , [place] [facility] 8 14:31:03 Multiple bruising 022703834 Completed 201612/12/2017 Joselo Aldana MD Attn: Accounting ,[address] [place], [address] , [place] [facility] 8 14:31:50 Allergic reaction to drug 493261857 Completed 201612/12/2017 Joselo Aldana MD Attn: Accounting ,[address], [place], [address] , [facility] 8 14:31:29 Easy bruising 987110482 Completed 201612/12/2017 Joselo Aldana MD Attn: Accounting ,[address] [place], [address] , [facility] 8 14:31:25 Dehydrati on 60131258 Completed 201612/12/2017 Joselo Aldana MD Attn: Accounting ,[address] [place], [address] , [facility] 8 14:31:57 Cholelith iasis without obstructi on 87164376 Active 2016 Tennille Quiroga PA-C Attn: Accounting ,[address] [place], [address] , [facility] 7 12:01:47 Dyspnea 097804196 Completed 12/12/2017 Joselo Aldana MD Attn: Accounting ,[address] [place], [address] , [facility] 8 14:30:39 Abnormal weight gain 282174144 Completed 12/12/2017 Joselo Aldana MD Attn: Accounting ,[address] [place], [address] , [facility] 8 14:49:09 Chest pain 55709227 Completed 12/12/2017 Joselo Aldana MD Attn: Accounting ,[address] [place], [address] , [facility] 8 14:30:46 Problem Notes None recorded. Procedures Surgical History Date Name Laterality Status Provider Name and Address Organization Details Recorded Time 07/23/19 01 Appendectomy completed Maribel Nieto LPN [facility] 08/13/2014 09:43:28 07/23/18 99 Other completed Maribel Nieto LPN [facility] 08/13/2014 09:43:28 07/23/18 82 Tubal Ligation completed Maribel Nieto LPN [place] [facility] 08/13/2014 09:43:28 Total hysterectomy completed Ama Arias [place] [facility] 12/12/2017 14:16:16 Imaging Results Imaging Date Name Status LastModified by Organiz ation Details LastModified Time 05/08/2017 CT, head, w/o contrast completed [facility] [address] [place], [address], 05/08/2017 14:09:38 02/06/2018 MAMMO, screening, bilateral completed [email or web address] [facility] (Imaging) [address] [place], [address], 02/08/2018 18:52:03 02/06/2018 XR, foot completed [facility] ([facility]) [address] [place], [address], 02/13/2018 08:49:09 02/06/2018 XR, knee completed [email or web address] [facility] ([facility]) [address] [place], [address], 02/13/2018 08:48:42 02/06/2018 XR, ankle completed [email or web address] [facility] ([facility]aging) [address] [place], [address], 02/13/2018 08:48:24 02/06/2018 XR, knee completed [email or web address] [facility] ([facility]) [address] [place], [address], 02/14/2018 13:59:05 07/30/2018 XR, shoulder, 2 or more view completed [email or web address] [facility] ([facility]) [address] [place], [address], 09/03/2018 11:11:40 08/29/2018 CT, chest, w/o contrast completed [email or web address] [facility] (Imaging) [address] [place], [address], 09/10/2018 10:13:52 Procedure Notes None recorded. Medical [...] Not available Not available Not available 07/06/2014 46652 UNK Not Available Not Available Not Available 95468 meloxicam medicatio n anaphylax is severe Not available 12/26/2016 59268 RxNorm Not Available Not Available Not Available 82023 Invega medicatio n anaphylax is severe Not available 12/26/2016 25775 8 RxNorm Not Available Not Available Not [...] e 50 mcg/actua tion nasal spray,alin pension [place] 1 spray every day by intranas al [...] Updated DateTime 8 160.02 cm 28.3 kg/m2 06373.3 4 g 111 /min 16 /min 98.5 [degF] 96 % 96 % 122 mm[Hg] 80 mm[Hg] Ama Arias [facility] 8 14:19:51 Date Recorded Body height Body mass index (BMI) Body weight Oxygen saturation Oxygen saturation in Arterial blood by Pulse oximetry Heart rate Body temperature Respiratory rate Systolic blood pressure Diastolic blood pressure Provider Name and Address Organization Details Last Updated DateTime 8 160.02 cm 27.8 kg/m2 10861 g 97 % 97 % 92 /min 98.4 [degF] 18 /min 128 mm[Hg] 82 mm[Hg] Ermelinda Matos MA [facility] 8 14:41:10 Date Recorded Body height Body mass index (BMI) Body weight Body temperature Oxygen saturation Oxygen saturation in Arterial blood by Pulse oximetry Heart rate Systolic blood pressure Diastolic blood pressure Provider Name and Address Organization Details Last Updated DateTime 1 160.02 cm 30.1 kg/m2 20002.7 g 98.1 [degF] 98 % 98 % 88 /min 134 mm[Hg] 82 mm[Hg] Beth Booker MA [facility] 14:19:17 Date Recorded Body height Body mass index (BMI) Body weight Heart rate Respiratory rate Body temperature Systolic blood pressure Diastolic blood pressure Provider Name and Address Organization Details Last Updated DateTime 7 161.29 cm 31.2 kg/m2 39536.0 3 g 108 /min 12 /min 98.4 [degF] 130 mm[Hg] 80 mm[Hg] Negrito Alatorre [facility] 7 10:58:27 Social History Question Answer Notes LastModified by Organizat ion Details LastModified Time Tobacco Smoking Status Current Every Day Smoker Ama Juana shelby [facility] 12/12/2017 14:14:44 What Is Your Level [...] erolemia Not available 2017 14:13:32 Father Malignant neoplasm of lung 74 Not available 2015 11:16:24 Father Pneumonia Not availab le 04/06/2016 11:16:24 Father Malignant tumor of colon 70 Not available 2015 11:16:24 Father Harmful pattern of use of alcohol Not available 2017 14:13:52 Brother Migraine Not available 12/12/2017 14:14:27 Medical History Condition Response Other Kidney or Bladder Problems Y Depression Y COPD Y Anxiety Disorder Y Muscle, Joint, or Bone Problems Y Acid Reflux (GERD) Y Asthma Y Allergies Y High Cholesterol Y Headaches Y Gynecological History Statement/Question Response Current Control Method Hysterectom y Obstetrics History GPAL:G 0 P 0 0 0 0 Immunizations Vaccine Type Date Status Note Provider Nam e and Address Organization Details Recorded Time Influenza, split virus, quadrivalent, preservative 6 completed Not Available [facility] 08/09/2019 02:43:39 Tdap 6 completed Not Available [facility] 08/09/2019 02:43:05 Influenza, split virus, quadrivalent, preservative 5 completed Not Available [facility] 08/09/2019 02:32:09 Past Encounters Encounter ID Performer Location Encounter Start Date Encounter Closed Date Diagnosis/Indication Diagnosis SNOMED-CT Code Diagnosis ICD10 Code Diagnosis Note [id number] MARJORIE [facility]worth [facility] [address] [facility] [place] [address] 07/06/2014 11:15:09 07/07/2014 09:42:26 Vitamin D deficiency 15843400 Disorder o f thyroid gland 60738368 [id number] Kelsey Rouse lle [address] [facility] [place] [address] 08/13/2014 09:33:21 08/13/2014 10:19:57 Dyspnea 934189044 Abnormal weight gain 058319933 Chronic re nal impairment 647355275 Discussed we may initiate diuretic pending lab results Chest pain 46147528 [id number] KRISTOPHER Rincon lle [facility] [address] [facility] [place] [address] 09/04/2014 14:03:08 09/04/2014 14:59:23 Abnormal weight gain 304531744 Edema 984403852 Acute exac erbation of chronic obstructive pulmonary disease 681049605 Nebulizer and medication s to be obtained through [place] [id number] Maribel Nieto LPN [facility] [address] [facility] [place] [address] 09/28/2014 10:33:48 09/28/2014 11:32:07 Edema 040489972 Abnormal weight gain 639682894 Emphysema 59689095 Asthma 419143359 [id number] [facility] [address] [place] [address] 10/30/2014 13:53:32 10/30/2014 15:25:37 Vitamin D deficiency 49453319 Edema 894585056 Chronic back pain 636512489 Dizziness 334292378 Very rare, but has used meclizine in the past and wants a refill. Acute exac erbation of chronic obstructive pulmonary disease 323509299 Asthma 920040251 Emphysema 72057301 [id number] MARJORIE Hollingsworth (Adult Med) [address] [place] [address] 01/04/2015 09:14:05 01/04/2015 09:55:26 Vitamin D deficiency 24851257 Edema 077287031 Chronic back pain 621945944 Dizziness 901027172 Very rare, but has used meclizine in the past. Does not need refill at this time Acute exac erbation of chronic obstructive pulmonary disease 331097769 Asthma 204233906 Emphysema 04081150 Obesity 265827728 2 glenn h weight loss goal: 10lbs She will contact [facility] and have them fax over the paperwork for [employer] Chronic re nal impairment [id number] MARJORIE Hollingsworth (Adult Med) [address] [place] [address] 03/03/2015 14:51:11 03/03/2015 16:53:50 Chronic back pain 303294714 Edema 556396360 Asthma 305397110 Emphysema 02746382 Abnormal weight gain 615531219 Talked about it could possibly be her [...] use the treadmill at her apartment. Fatigue 75116267 I advis ed to her talk with her psychiatri . I have a suspicion that her psych [...] sees them (they live 2.5 hours away) [id number] [facility] (Adult Med) [address] [place] [address] 03/26/2015 13:48:02 03/26/2015 16:05:38 Slurred speech 212094579 Today patient is at her baseline that I know her at. She always has slowed speech and is depressed. I see not acute changes but based on the fact that [facility] is wanting a stroke r/o and it is Sunday afternoon before a holiday weekend I sent patient to the ER Discussed with patient and with patient's caregiver that if [facility] would like a stroke r/o patient needs to go to the ER. Patient's caregiver states that patient has been sleeping much more recently and has not been herself. He confirmed that [facility] wanted patient evaluated for a possible stroke. I told them that if that is the case patient needs to be taken to the ER. I suspect that her slurred speech, slobbering , and lethargy could be a result of stopping and starting Ivenga. In addition, patient states that they have also changed some of her other medication s at [facility] so she feels very off. I believe this is a medication issue more than a stroke issue. Caregiver v/u and is taking patient to [facility]. Tabitha called over to the ER to give them a heads up that patient is coming. [id number] [facility] (Adult Med) [address] [place] [address] 04/26/2015 08:53:11 04/26/2015 09:27:54 Chronic back pain 641963389 R52 f/u appointmen t with Dr. Garcia on 05/05 - patient asked if she could have tramadol for her neck pain. She was given this in the ED and states that it works better than the Flexeril for her neck pain. She is also on Heth for pain - she states that she should have enough medication to get her to her appointmen t with pain management on 05/05. I do not believe that she is drug seeking. I told her that if she needs tramadol to get her to her appointmen t on 05/05 to call in for that. Needs infl uenza immunization 236476398 Z28.3 Chronic re nal impairment 899738829 N18.9 f/u appointmen t with nephrologi on 05/04 [id number] [facility] (Adult [facility]) [address] [place] [address] 06/03/2015 08:57:27 06/03/2015 09:28:57 Chronic renal impairment 838135699 N18.9 Everything checked out with nephrology will have a f/u in one year Schizoaffe ctive disorder 96544600 F25.9 Patient the best I have ever seen her. Smiling, no slurred or slowed speech and very engaging. States she feels much better now that she is off of Invega. Psych has talked about taking pyridoxine for nightmares . She has been prescribed this but has not picked it up. [id number] [facility] (Adult Med) [address] [place] [address] 07/02/2015 09:51:24 07/02/2015 11:15:11 Malodorous urine 572968091 R82.90 Advised to increase water intake - [...] urine because she pees so infrequent ly [id number] [facility] (Adult Med) [address] [place] [address] 08/06/2015 13:58:27 08/06/2015 17:48:13 Spinal stenosis 28788157 M48.00 States that Snehal Alvarado PA-C for Dr. Nunez talked with her about doing fentyl patches and I advised her to discuss this with Dr. Garcia Will send over neurosurge ry note to Dr. Garcia at the [facility] in [place] [id number] [facility] (Adult Med) [address] [place] [address] 09/03/2015 09:05:56 09/03/2015 09:51:12 Knee pain 30417315 M25.561 Possible medial mensical tear after a [...] that is helping with her knee pain [id number] [facility] (Adult Med) [address] [place] [address] 10/07/2015 12:19:14 10/07/2015 12:56:00 Pain of hip region 86369004 M25.551 WIll begin with right hip xray - depending upon results either PT or ortho next Chronic ki dney disease stage 3 173225695 N18.3 [id number] [facility] (Adult Med) [address] [place] [address] 11/22/2015 08:41:24 11/22/2015 10:38:36 Spinal stenosis 55376167 M48.00 Patient cleared from a PCP standpoint . In clearance note, listed all of the specialist s that she sees and noted that if they have questions concerning anything to do with those specialtie s for clearance to contact them [id number] [facility] (Adult Med) [address] [place] [address] 12/07/2015 09:48:00 12/07/2015 11:27:34 Hyperkalemia 02667080 E87.5 Will redraw potassium today and send to nephrology Acute exac erbation of chronic obstructive pulmonary disease 650484982 J44.1 Will recheck CBC today - WBC last week was elevated at 17.1 [id number] [facility] (Adult Med) [address] [place] [address] 01/13/2016 10:39:21 01/13/2016 11:50:14 Spinal stenosis 40695361 M48.00 Patient has a hx/o spinal stenosis with spinal surgeries - will submit order for new hospital bed mattress. Original mattress was ordered by Dr. Garcia. Will submits notes from Dr. Gaffney as well. [id number] [facility] (Adult Med) [address] [place] [address] 02/28/2016 10:02:35 02/28/2016 11:20:40 At increased risk for falls 789548809 Z91.81 Discussed eating 3 times/day so that [...] is due to go back for PT [facility] drug abuse worker requesting wheelchair with seat - will prescribe Patient to complete fasting blood work prior to next appointmen t Chronic ob structive pulmonary disease 59576410 J44.9 Appointmen t in 2 weeks with pulmonolog y Chronic ki dney disease stage 3 [id number] N18.[address] Womack is in Oct Screening for malignant neoplasm of colon 518990927 Z12.11 Family his tory of cancer of colon 987076390 Z80.0 Obesity 021989288 E66.9 2 month weight loss goal: 10lbs She will contact [facility] and have them fax over the paperwork for [employer] Allergic rhinitis 442787 04 J30.9 [id number] CLIFFORD Ritter (Adult Med) [address] [place] [address] 31547-561 0 04/06/2016 10:39:56 04/06/2016 11:46:58 Active or passive immunization 675578315 Z23 Spinal stenosis 42410495 M48.00 Patient has a hx/o spinal stenosis with spinal surgeries - will submit order for new hospital bed mattress. Original mattress was ordered by Dr. Garcia. Will submits notes from Dr. Gaffney as well. At [facility] risk for falls 659520347 Z91.81 Discussed eating 3 times/day so that her blood sugars don't drop so low when she is feeling shaky - her shakiness could be 2/2 poor nutrition Patient states at this time she knows she is due to go back for PT Chronic ki dney disease stage 3 [id number] N18.[address] Womack is in Apr Hyperlipidemia 73188849 E78.5 Initiate statin tx Obesity 491551606 E66.9 2 month weight loss goal: 10lbs She will contact [facility] and have them fax over the paperwork for [employer] Chronic ob structive pulmonary disease 64776283 J44.9 Appointmen t in 2 weeks with pulmonolog y Edema 110909782 R60.9 Increased blood pressure 08275564 R03.0 120/98 - NAD - will readdress at next visit Her BP is normally WNL She is currently taking HCTZ for edema as well - could be helping with the BP and she could have dx of HTN [id number] Marva (Adult Med) [address] [place] [address] 63176-167 0 05/11/2016 14:08:24 05/12/2016 10:18:52 Multiple bruising 604720144 T14.8 abnormal, non-norman ing erythemato us bruising of bilateral forearms and left cheek with elevated WBC - will refer to hematology Tobacco de pendence syndrome 04338988 F17.290 Active or passive immunization 817087338 Z23 [id number] CLIFFORD Ritter (Adult Med) [address] [place] [address] 20699-073 0 07/06/2016 10:29:50 07/06/2016 11:11:05 Multiple bruising 207037296 T14.8 Patient was referred to hematology - per patient she was dx'ed with SLE and RA - she is referred to Dr. Hatfield in [facility] send for most recent note from Dr. Brink Patient to sign MALCOLM for records from here to refer to damian [id number] CLIFFORD Ritter (Adult Med) [address] [place] [address] [phone] 0 07/26/2016 09:06:23 07/26/2016 10:06:17 Upper respiratory infection 69855416 J06.9 Advised to drink plenty of waterAlter taet ibuprofen and tylenol for painRestOT C cough syrup PRNNo need for abx at this timeIf sx's worsen contact clinic and I will put in abx [id number] CLIFFORD Ritter (Adult Med) [address] [place] [address] 48875-659 0 08/02/2016 10:30:09 08/02/2016 14:37:47 Systemic lupus erythematosus 38464880 M32.9 No labs or office notes received yesterday from damian benson. WIll contact patient when we have received the informatio n.Will await to see the labs and note from damian benson prior to contact their office concerning [facility] Since [facility] are a specialty office and ordered all of the labs, a specialist needs to address the labs with the patient and follow her SLE. WIll see who can follow her within the damian office at [facility] white Dr. White [place] of the [place] [id number] CLIFFORD Ritter (Adult Med) [address] [place] [address] [phone] 0 10/17/2016 09:14:49 10/17/2016 18:05:45 HIV screening 704212038 Z11.4 Chronic neck pain 404914 1889 107 M54.2 s/p surgery with a plate being discharged from Dr. Bishop because she has completed surgery and tx and no need for further tx from him at this time Will prescribe tizanidine 4mg BID Chronic ob structive pulmonary disease 76819920 J44.9 c/w current medication [id number] CLIFFORD Ritter (Adult Med) [address] [place] [address] [phone] 0 11/14/2016 09:20:22 11/15/2016 11:28:07 Acute bronchitis 71859539 J20.9 d/t hx/o smoking and pneumonia and sx's > 2 weeks, will tx with abxTake abx as prescribeU se albuterol PRNStay away from cigarettes Advised to drink plenty of waterAlter tate ibuprofen and tylenol for painRestOT C cough syrup PRN Chronic ob structive pulmonary disease 21653247 J44.9 c/w current medication Tobacco de pendence syndrome 46192560 F17.290 Advised to quit smoking [id number] CLIFFORD Ritter (Adult Med) [address] [place] [address] [phone] 0 12/26/2016 09:10:47 12/26/2016 10:05:21 Hyperlipidemia 13931071 E78.5 Will recheck levels Chronic ob structive pulmonary disease 72125622 J44.9 c/w current medication stop smokingcon tinue to follow with Dr. Milian Chronic ki dney disease stage 3 597059090 N18.3 Next appointmen t with Dr. Womack is in Apr 2017 Systemic l upus erythematosus 24770401 M32.9 Followed by JOSE, Dr. White Multiple bruising 758811 [address] Brink Allergic r eaction to drug 454584290 T50.905D Patient has been d/c'ed on meloxicam and Ivega States that they told her that her throat has 75% blockage from the medication Patient does not want to see ENT at this time - advised that if she would like to see them to contact clinic - her adverse reaction was a swollen tongue Atopic dermatitis 070702 01 L20.9 Allergic disposition 609 749197 Z91.09 [id number] CLIFFORD Ritter (Adult Med) [address] [place] [address] 46246-485 0 02/01/2017 08:58:06 02/01/2017 09:50:04 Hyperlipidemia 80572049 E78.5 Will recheck levels Chronic ob structive pulmonary disease 05131373 J44.9 c/w current medication stop smokingcon tinue to follow with Dr. Milian Chronic neck pain 057183 9031 107 M54.2 s/p surgery with a plate being discharged from Dr. Bishop because she has completed surgery and tx and no need for further tx from him at this time Will prescribe tizanidine 4mg BID Tobacco de pendence syndrome 38207692 F17.290 Advised to quit smoking Schizoaffe ctive disorder 92443518 F25.9 Patient the best I have ever seen her. Smiling, no slurred or slowed speech and very engaging. States she feels much better now that she is off of Invega. Psych has talked about taking pyridoxine for nightmares . She has been prescribed this but has not picked it up. Systemic l upus erythematosus 88489178 M32.9 Followed by U, Dr. White Chronic ki dney disease stage 3 896633764 N18.3 Next appointmen t with Dr. Womack is in Apr 2017 Obesity 902746774 E66.9 Advised 30 minutes of exercise 5 days/week Advised to not drink her calories Advised 3 balanced meals/day with plenty of fruits and vegetables Easy bruising 276862114 R58 WIll re-refer to hematology at this timeI tried to contact Dr. White's office but could not get through. [facility] will make patient aware of new referral and will not send to [facility] [id number] Tennille Quiroga PA-C [facility] (Adult Med) [address] [place] [address] 93549-863 0 02/22/2017 08:43:57 02/26/2017 11:45:12 Leukocytosis 571457471 D72.829 Advised patient that I would really like her to see hematology at this time - patient given number to contact Dr. Bernard's office - [facility] to call patient this afternoon to confirm that she scheduled an appointmen t with hematology - will send ER to hematology as well Cholelithi asis without obstruction 58659974 K80.20 Patient states that she was told that she could not have gallbladde r removed d/t elevated WBC count - advised that I will re-send her to GI Dehydration 64141092 E86 .0 Advised that if she is [...] her best interest to go to ther [id number] CLIFFORD Ritter (Adult Med) [address] [place] [address] 04/19/2017 10:24:31 04/19/2017 13:24:53 Chronic obstructive pulmonary disease 63728544 J44.9 c/w current medication stop smokingcon tinue to follow with Dr. Milian Obesity 423113169 E66.9 Advised 30 minutes of exercise 5 days/week Advised to not drink her calories Advised 3 balanced meals/day with plenty of fruits and vegetables Chronic ki dney disease stage 3 786653103 N18.3 Next appointmen t with Dr. Womack is in Apr 2017 Systemic l upus erythematosus 50830684 M32.9 Followed by [facility], Dr. White - has an appointmen t today - advised to address bruising concern with Dr. White Hyperlipidemia 34179249 E78.5 Will recheck levels Multiple bruising 015003 [address] Brink Vitamin D deficiency 347 45957 E55.9 Repeat at next visit Tobacco de pendence syndrome 27257140 F17.290 Advised to quit smoking Cholelithi asis without obstruction 62964758 K80.20 to be evaluated by Mendy patient, no RUQ pain and is asymptomat ic. Schizoaffe ctive disorder 78508582 F25.9 Patient is manic today. Pressure speech, paranoia. Advised to f/u with psych Irritable bowel syndrome 09868791 K58.9 Chronic neck pain 208829 0880 107 M54.2 tizanidine 4mg BID has been followed by Dr. Bishop in the past [id number] Rigoberto Aguilar MD [facility] [address] [place] [address] 08/21/2017 13:28:59 09/02/2017 12:54:04 [id number] MD Felicia Gonzalezhalto (Adult Med) [address] [place] [address] 12/12/2017 13:43:55 12/14/2017 17:22:00 Chronic renal impairment 351427218 N18.9 pt sees nephro Spinal stenosis 45459675 M48.00 pt is seeing and taking pain meds from [facility] bed Schizoaffe ctive disorder 56056910 F25.9 pt was seeing psychiatri at [facility] , last seen a month ago , took her off of med per pt Chronic ob structive pulmonary disease 73138425 J44.9 continue inhalespt to quit smoking [id number] Tati Salazar MD [facility] [address] [place] [address] 06/27/2018 13:54:39 06/28/2018 13:33:34 [id number] Rainer Levine MD [facility] (Adult Med) [address] [place] [address] 11/29/2020 13:32:17 11/30/2020 13:58:04 Edema 458356280 R60.9 Chronic ob structive pulmonary disease 76418680 J44.9 Health Concerns Section Related Observation LastModified by Organization Detai ls LastModified Time None Recorded Concern Status LastModified by Organization Details LastModified Time None Recorded Advance Directives Directive None Recorded Payers Encounter Date Sequence Insurance Name Policy Number Policy Butler Covered Member ID Butler Member ID Guarantor Name 04/19/2017 1 [facility] PRIOR TO 01/20/2021 (MEDICAID REPLACEMENT - HMO) Melinda Persaud [id number] Melinda Persaud 08/21/2017 1 [facility] PRIOR TO 01/20/2021 (MEDICAID REPLACEMENT - HMO) Melinda Persaud [id number] Melinda Persaud 12/12/2017 1 [facility] PRIOR TO 01/20/2021 (MEDICAID REPLACEMENT - HMO) Melinda Persaud [id number] Melnida Persaud 06/27/2018 1 [facility] PRIOR TO 01/20/2021 (MEDICAID REPLACEMENT - HMO) Melinda Persaud [id number] Melinda Persaud 11/29/2020 1 [facility] PRIOR TO 01/20/2021 (MEDICAID REPLACEMENT - HMO) Melinda Persaud [id number] Melinda Persaud Notes Date Note Type Note [...] of these things.States that she saw the coloring machine operator 'who was a quack and didn't know [...] 3 weeks ago she moved out of [facility] and is living in a handicap friendly [...] and Ativan. Tennille Quiroga PA-C Attn: Accounting,[address] [place], [address], [place] [facility] 04/19/2017 12:21:38 12/12/2017 text/html New pt with mult iple chronic problems is here to establish pcp. pt is poor historian. Pt used to take several psych meds , her psychiatrist at [facility] tapered her meds and stopped them per pt .pt last seen psychiatrist in 11/07 per pt . Pt is requesting hospital bed , could not lie down due to pain in back and leg per pt . Pt sees neurologist / , taking pain pill . pt also sees nephro for crf. 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 Joselo Aldana MD Attn: Accounting,[address], [place], [address], [facility] 12/13/2017 14:45:51 11/29/2020 text/html Needs a PCP. Has had increased sensitivity in her skin for about three years. 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 Recently hospitalized at [facility] in 2020 but does not remember details. Rainer Levine MD Attn: Accounting,[address] [facility], [place], [address], [facility] 11/29/2020 17:50:37 OBGyn Episode No OBEpisode recorded.
--- OUTSIDE RECORDS SUMMARY | 2024-11-17 11:13 | XMS_ITS | Clinical Summary ---
Author Organization [facility]rell[facility] hutton Address [address] [place] [address] Phone Care Team Providers Care Resolute Professional Name Role Phone Mj Lee MD Primary Care Provider + Allergies Active Allergy Reactions Criticality Noted Date Comments Aspirin 01/21/2019 Cefuroxime 01/21/2019 Gabapentin 01/21/2019 Ibuprofen 01/21/2019 Iodinated Contrast Media 01/21/2019 Venlafaxine 01/21/2019 Medications ALPRAZolam (XANAX) 1 MG tablet Take 1 [...] mouth 1 (one) time each day Active hydroCHLOROthia zide (HYDRODIURIL) 25 MG tablet Take 25 mg [...] hypertension 10/25/2017 01/21/2019 Edema 04/28/2016 01/21/2019 Immunizations Immunization Administration Dates Next Due Influenza TIV (IM) [...] Average Number of Drinks Not on file Frequency of Binge Drinking Not on file 08/2018 Comments Unknown Sex and Gender Information Value Date Recorded Sex Assigned at Not on file Legal Sex Female 10:05 AM [facility] Gender Identity Not on file Sexual Orientation [...] Due Date Last Done Comments Influenza Vaccine (Season Ended) 2025 04/22/20 15, 05/15/2013 Insurance MEDICARE Care Teams Resolute Professional Relationship Specialty Start Date End Date Mj Lee MD [address] [place] [address] PCP - General Family Medicine 02/04/20
--- OUTSIDE RECORDS SUMMARY | 2024-11-17 11:13 | XMS_ITS | Continuity of Care Document ---
Author Organization [facility] Address [address] [place] [address] [address] [place] [address] Phone Care Team Providers Care Employment Clerk Name Role Phone Gonzalez OD, Mane Unavailable Unavailable Procedures Procedure Date Eye Exam & Treatment Refraction Eye Exam & Treatment Eye Exam & Treatment Eye Exam, New Patient Advance Directives Directive Yes / No Effective Date File Name No Information Encounters Encounter Description Practice Location Reason(s) For Visit Diagnoses Date Provider Providers Copied on Encounter [facility], [address] [place] [address] [address], [place], [place], [id number], tel:[phone] [facility] No Information 6-201 0 Gonzalez OD Mane. [address], [place], [place], [facility], [place]. tel:[phone] [facility], [address] [place] [address] [address], [place], [place], [id number], tel:[phone] [facility] No Information 1-200 9 Gonzalez OD Mane. [address], [place], [address], [place]. tel:[phone] [facility], [address] [place] [address] [address], [place], [place], [id number], tel:[phone] [facility] [place] No Information Oct-0 9-200 8 Gonzalez OD Mane. [address], [address], [place], [address], [place]. tel:[phone] [facility], [address], [place], [place], [id number], [place] tel:[phone] [facility] No Information Sep-2 8-200 7 Gonzalez OD Mane. [address], [place], [address], [place]. tel:[phone] Family History Family Member Type Diagnosis Age At Onset No Information Payers Payer name Insurance type Covered democrat ID Authoriza tion(s) Medicaid [facility] [id number] Social History Type Description Quantity Date Captured [...]
--- OUTSIDE RECORDS SUMMARY | 2024-11-17 11:13 | XMS_ITS | Clinical Summary ---
Author Organization [facility] Address [address] [place] [address] Phone Care Team Providers Care Pediatric Intensive Physician Name Role Phone TAQUERIA CADENA, JOSE Benson Unavailable [phone] SAMSON JANG MD Unavailable [phone] Reason for Visit and Chief Complaint The Chief Complaint is: FU C7-T1 INTERLAMINAR EPIDURAL STEROID INJECTION DONE 05/23/23, 0% RELIEF ONGOING Plan of Treatment No Plan of Treatment Recorded Assessments Includes: Assessments from this encounter Findings - Cervical spondylosis with radiculopathy [M47.22 - Other spondylosis with radiculopathy, cervical region] - Last Documented On 06/21/2023 9:16AM ; [facility] - Cervical spine stenosis [M48.02 - Spinal stenosis, cervical region] - Last Documented On 06/21/2023 9:16AM ; [facility] - Cervical radiculopathy [M54.12 - Radiculopathy, cervical region] - Last Documented On 06/21/2023 9:16AM ; [facility] - Myalgia and myositis [M79.18 - Myalgia, other site] - Last Documented On 06/21/2023 9:16AM ; [facility] Medical Equipment - Implanted Devices Includes: Current Devices No Medical Equipment Recorded Medications Includes: Medications discussed during this encounter and other current Medications Discontinued / Stopped on this date JOSE CADENA on 05/08/2023 Diclofenac Sodium 75 MG Oral Tablet Delayed Release Provider: JOSE GOODEN Diagnosis: Spinal stenosis, cervical region Last Documented On 9:11AM By JOSE CADENA ; [facility] diphenhydrAMINE HCl 50 MG Or al Capsule Provider: JOSE CADENA Diagnosis: Spinal stenosis, cervical region Last Documented On 06/21/2023 9:04AM By Snehal CID ; [facility] predniSONE 50 MG Oral Tablet Provider: JOSE GOODEN Diagnosis: Spinal stenosis, cervical region Last Documented On 06/21/2023 9:04AM By Snehal CID ; [facility] ALPRAZolam 0.5 MG Oral Tablet Provider: JOSE CADENA Diagnosis: Other spondylosi s with radiculopathy, cervical region Last Documented On 06/21/2023 9:03AM By Snehal CID ; [facility] Ketorolac Tromethamine 10 MG Oral Tablet Provider: SAMSON JANG MD Diagnosis: Last Documented On 06/21/2023 9:04AM By Snehal CID ; [facility] Montelukast Sodium 10 MG Oral Tablet Prov ider: SAMSON JANG MD Diagnosis: Last Documented On 06/21/2023 9:04AM By Snehal CID ; [facility] Doxepin HCl 25 MG Oral Capsule Provider: Diagnosis: Last Documented On 06/21/2023 9:04AM By Snehal CID ; [facility] Ketorolac Tromethamine 10 MG Oral Tablet Provider: SAMSON JANG MD Diagnosis: Last Documented On 06/21/2023 9:04AM By Snehal CID ; [facility] New / Renewed during this visit JOSE CADENA on 06/21/2023 Lidocaine 5% External Patch Provider: JOSE GOODEN 30 day supply: 30 patch, 2 refills Diagnosis: Spinal stenosis, cervical region as directed apply patch to a ffected area for 12 hours and remove for 12 hours Pharmacy: [address], [facility], [phone] - Last Documented On 02/29/202 4 3:14PM By JOSE CADENA ; [facility] Current Medications (continue as prescribed) Lidocaine 5% External Patch 09/20/2023 Provider: JOSE GOODEN Diagnosis: Spinal stenosis, cervical region as directed apply patch to a ffected area for 12 hours and remove for 12 hours Last Documented On 4 3:21PM By JOSE CADENA ; [facility] Varenicline Tartrate 1 MG Oral Tablet 06/20/2023 Pro vider: SAMSON JANG MD Diagnosis: Last Documented On 06/21/2023 9:05AM By Snehal CID ; [facility] Ketorolac Tromethamine 10 MG Oral Tablet 06/08/2023 Provider: SAMSON JNAG MD Diagnosis: Last Documented On 06/21/2023 9:06AM By Snehal CID ; [facility] Latanoprost 0.005% Ophthalmic Solution 06/05/2023 Pr ovider: Diagnosis: Last Documented On 06/21/2023 9:05AM By Snehal CID ; [facility] QUEtiapine Fumarate 200 MG Oral Tablet 01/10/2023 Pr ovider: Diagnosis: AT BEDTIME Last Documented On 3 10:08AM By Snehal CID ; [facility] Melatonin 5 MG Oral Capsule 12/20/2022 Provider: Diagnosis: Last Documented On 3 11:26AM By Snehal CID ; [facility] Banophen 25 MG Oral Capsule 12/19/2022 Provider: SAMSON JANG MD Diagnosis: Last Documented On 3 11:22AM By Snehal CID ; [facility] Pregabalin 150 MG Oral Capsule 12/19/2022 Provider: SAMSON JANG MD Diagnosis: Last Documented On 3 11:23AM By Snehal CID ; [facility] QUEtiapine Fumarate 100 MG Oral Tablet 12/05/2022 Pr ovider: Diagnosis: Last Documented On 3 11:24AM By Snehal CID ; [facility] Ventolin HFA 108 (90 Base) M CG/ACT Inhalation Aerosol Solution 11/30/2022 Provider: SAMSON JANG MD Diagnosis: Last Documented On 3 11:25AM By Snehal CID ; [facility] hydroCHLOROthiazide 12.5 MG Oral Tablet 11/28/2022 P rovider: SAMSON JANG MD Diagnosis: Last Documented On 3 11:22AM By Snehal CID ; [facility] Dicyclomine HCl 20 MG Oral Tablet 11/27/2022 Provide r: SAMSON JANG MD Diagnosis: Last Documented On 3 11:23AM By Snehal CID ; [facility] Methocarbamol 750 MG Oral Tablet 11/24/2022 Provider : SAMSON JANG MD Diagnosis: Last Documented On 3 11:23AM By Snehal CID ; [facility] Atorvastatin Calcium 40 MG Oral Tablet 11/24/2022 Pr ovider: SAMSON JANG MD Diagnosis: Last Documented On 3 11:23AM By Snehal CID ; [facility] Candesartan Cilexetil 32 MG Oral Tablet 11/20/2022 P rovider: SAMSON JANG MD Diagnosis: Last Documented On 3 11:22AM By Snehal CID ; [facility] Medications Administered Includes: Administered Medications from this encounter No Administered Medications Recorded Vital Signs Includes: Vital Signs from this encounter Vital Name 06/21/2023 09:02A Temp-Oral (F) 98.6 Height (in) 64 Weight (lb) 180 Body Mass Index 30.9 Body Surface Area 1.9 Pain Level 7 Last Documented: On 06/21/2023 9:03AM ; [facility] Results Includes: Results discussed during this encounter [...] of daily living. 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 She [...] for visit: Provider: Privacy of provider's office. [address] [place] [address]., [place] [address] Patient: Patient personal setting Total time spent with patient via telecommunication 18 minutes Social History Description Last Updated Former smoker 08/02/2023 Last Documented On 3 9:00AM ; [facility] No consumption of alcohol 06/21/2023 Last Documented On 3 9:16AM ; [facility] Not using drugs 06/21/2023 Last Documented On 3 9:16AM ; [facility] Current smoker 12/20/2022 Last Documented On 3 9:00AM ; [facility] Difficulty walking 12/20/2022 Last Documented On 3 9:00AM ; [facility] Smoking packs of cigarettes per day 1 Last Documented On 3 9:00AM ; [facility] Smoking Status Unknown Procedures and Surgical History Includes: Procedures from this encounter Procedures Code Diagnosis Performing Provider Service L ocation Service Date use of tobacco assessment performed 1000F Last Documented On 3 9:06AM ; [facility] standardized depression screening: negative for symptoms 3351F Last Documented On 3 9:00AM ; [facility] review of medications documented 1160F Last Documented On 3 9:06AM ; [facility] screening for adult depression: impressi on and score 0 Last Documented On 3 9:00AM ; [facility] Clinical summary provided to patient ~ Patient understands and agrees with treatment plan. Questions answered Last Documented On 3 9:00AM ; [facility] SOAPP-R: total score 3 Last Documented On 3 9:00AM ; [facility] Surgical History Last Updated No Pacemaker 06/21/2023 Last Documented On 3 9:16AM ; [facility] Medical History Includes: Medical History addressed during this encounter Description Last Updated Denies a fear of falling. 06/21/2023 Last Documented On 3 9:16AM ; [facility] Has had no fall in the last 12 months. 1 08/21/2022 Last Documented On 3 9:16AM ; [facility] No Pain Pump 06/21/2023 Last Documented On 3 9:16AM ; [facility] No Spinal cord stimulator 06/21/2023 Last Documented On 3 9:16AM ; [facility] CT/MRI September 2022neckGRMCshoulderFeb 202 3[facility]MC 04/11/2023 Last Documented On 3 9:00AM ; [facility] Currently wearing eyeglasses 04/11/2023 Last Documented On 3 9:00AM ; [facility] Injection/Nerve blocks 04/11/2023 Last Documented On 3 9:00AM ; [facility] Message/Acupressure 04/11/2023 Last Documented On 3 9:00AM ; [facility] Pain Clinic 04/11/2023 Last Documented On 3 9:00AM ; [facility] Physical therapy 04/11/2023 Last Documented On 3 9:00AM ; [facility] Please list all illnesses/co nditions you have been diagnosed with: HPTN; peripheral vascular disease; high cholesterol; restricted breathing disorder; lung stone; seizures; allergies; depression 04/11/2023 Last Documented On 3 9:00AM ; [facility] Please list all surgeries: 2 016 November neck surgerygallbladder removal 2020hysterectomy 2000appendectomy 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 on R femur removed 199804/11/2023 Last Documented On 3 9:00AM ; [facility] Severe Pain 04/11/2023 Last Documented On 3 9:00AM ; [facility] Treatment with TENS unit 04/11/2023 Last Documented On 3 9:00AM ; [facility] X-rays September 2022neck and back[facility]MC 04/11 Last Documented On 3 9:00AM ; [facility] Family History Includes: Family History addressed during this encounter Description Last Updated Maternal history of family history of is chemic heart disease 06/21/2023 Last Documented On 3 9:16AM ; [facility] Maternal history of family history of ki dney disease 06/21/2023 Last Documented On 3 9:16AM ; [facility] Review of Systems Includes: Review of [...] Last Documented On 4 2:44PM ; [facility] NSAIDs Allergy 12/20/2022 Active Last Documented On 4 2:44PM ; [facility] Meloxicam Allergy 12/20/2022 Active Last Documented On 4 2:44PM ; [facility] Effexor XR Allergy 12/20/2022 Active Last Documented On 4 2:44PM ; [facility] Contrast Dye Allergy 12/20/2022 Active Last Documented On 4 2:44PM ; [facility] Note: THROAT CLOSES AND STOPS BREATHING Aspirin Allergy 12/20/2022 Active Last Documented On 4 2:44PM ; [facility] Encounters Encounter Provider Location Date Check-In Time Check-Out Time Diagnosis TELEHEALTH JOSE CADENA [facility] 06/21/20 9:00AM 9:23AM Spinal Stenosis Cervical,Myalgia and Myositis,Cervical Radiculopathy,Spo ndylosis with Radiculopathy Cervical Region Insurance Includes: Active Insurance Policies Plan Name Member ID Group # Subscriber Relationship Effect austin Dates - [facility] [id number] perez Clinical Notes Includes: Clinical Notes from this encounter * Progress note Date Encounter Last Documented by 06/21/2023 TELEHEALTH Last documented on 06/21/2023; 9:16 AM, JOSE CADENA; [facility] Chief Complaint The Chief Complaint is: FU [...] of daily living. 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 She [...] No Pacemaker. [facility]. Physical Trauma: Has had no fall [...] but may be subject to typographical or project lead errors. Verify all diagnoses, medications, dosages, and [...] for visit: Provider: Privacy of provider's office. [address] [place] [id number] Patient: Patient personal setting Total time spent with patient via telecommunication 18 minutes
--- OUTSIDE RECORDS SUMMARY | 2024-11-17 11:13 | XMS_ITS | Encounter Summary ---
Author Organization [facility] Address [facility] [place] [address] Care Team Providers Care Commercial Cleaner Name Role Phone Eulalia Lema DO Primary Care Provider [phone] Dayna Mkai MD Primary Care Provider Dayna Maki MD Primary Care Provider Mj Lee MD Primary Care Provider [phone] Dayna Maki MD Unavailable Eulalia Lema DO Unavailable Dayna Maki MD Primary Care Provider Reason for Visit * Reason Onset Date Comments Appointment 03/04/2018 refused by dinorah nt Results 03/04/2018 1st attempt to c ontact patient to notify of lab results Encounter Details Date Type Department Care Team (Late st Contact Info) Description 03/04/2018 Telephone [facility] General Internal Medicine [address] [facility] [address] [place] [address] Eulalia Lema DO [address] [place] [address] Appointment (refused by patient); Results [...] on file Legal Sex Female 11:00 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 ? * Telephone Encounter - Sylvie [...] need 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 * Telephone Encounter - Catalina Montoya - 03/04/2018 1:56 PM CDT Pt called in and scheduled appt with Dr. Slater for March 20, 2018 at 3:00 PM * Telephone Encounter - Leena Berger - 03/04/2018 1:19 PM CDT Pt: Melinda Edouard#: [id number] Pt calling in response to past attempts [...] documented as of this encounter Care Teams Commercial Cleaner Relationship Specialty Start Date End Date Eulalia Lema DO PCP - General 02/18/18 03/20/18 Dayna Maki MD PCP - General 03/21/18 12/21/20 Dayna Maki MD PCP - General Internal Medicine 12/22/20 12/22/20 Mj Lee MD [address] [place] [address] [place] [address] PCP - General Internal Medicine 12/23/20 12/23/20 Dayna Maki MD [address] [place] [address] [facility] [place] [address] PCP - General 12/24/20 Dayna Maki MD 12/22/20 Eulalia Lema DO Resident - PCP Internal Medicine 02/15/18 documented as of this encounter
--- OUTSIDE RECORDS SUMMARY | 2024-11-17 11:13 | XMS_ITS | Clinical Summary ---
Author Organization [facility] Address [address] [place] [address] Care Team Providers Care Dye Reel Operator Helper Name Role Phone Dayna Maki MD Unavailable [phone] Eulalia Lema DO Unavailable [phone] Dayna Maki MD Primary Care Provider Source Comments [facility],non-owned Affiliates and Associated Physician Practices is amultiple site organization consisting of ambulatory clinics and hospital sitesin [place], [place], [place] and [place]. This disclosure is being madepursuant to the Care Everywhere program and may not contain all information available regarding this patient. Last updated 18.[facility] Messaging Allergies Active Allergy Reactions Criticality Noted Date [...] Shellfish Allergy Anaphylaxis High 12/22/2020 Medications * This document contains information received from the source organization and may not represent a complete record from that organization. * Be aware that medications may not be up to date on this document. Alwaysverify current medications with the patient. traZODone (DESYREL) 100 MG tablet Take 100 mg by mouth at bedtime Active acetaminophen (TYLENOL) 500 MG tablet Take 1,000 mg by mouth every 6 hours as needed for Fever or Pain Maximum allowable Acetaminophen amount = 4 Grams (4000 mg) / 24 hours. Active cyclobenzaprin e (FLEXERIL) 10 MG tablet Take 10 mg by mouth 2 times daily Active zolpidem CR (AMBIEN CR) 12.5 MG tablet Take 12.5 mg by mouth nightly as needed for Insomnia Active candesartan (ATACAND) 16 MG tablet Take 16 mg by mouth once daily Active Lumateperone Tosylate (CAPLYTA) 42 MG CAPS Take 42 mg by mouth once daily Active hydroCHLOROthi azide (HYDRODIURIL) 25 MG tablet Take 25 mg [...] Myalgia 07/11/2016 Insomnia 07/11/2016 Arthralgia 07/11/2016 Immunizations Immunization Administration Dates Next Due FLU VACCINE QUAD [...] on file Legal Sex Female 11:00 PM SURFACE BOSS Gender Identity Not on file Sexual Orientation [...] 1-dose series) 2023 SCREENING FOR DIABETES 12/24/2023 , 12/22/2020, 12/22/2020, Additional history exists COVID-19 VACCINE ( - 2023- season) 2024 DEPRESSION SCREENING 07/23/2024 INFLUENZA VACCINE (Season Ended) 2025 04/06/2016, 04/26/2015, 04/22/2015, Additional history exists LIPID TESTING 12/22/2025 12/22/2020, 01/21/2018 DTAP/TDAP/TD VACCINES [...] complete this topic MENINGOCOCCAL (Group B) VACCINE SHARED DECISION-MAKING Aged Out No longer eligible based on patient's age to complete this topic MENINGOCOCCAL GROUPS A/C/Y/W VACCINE Aged Out No longer eligible based on patient's age to complete this topic Procedures Procedure Name Priority Date/Time Associated Diagnosis Comments GLUCOSE - POINT OF CARE Routine 12/23/2020 4:04 AM CDT LIPID PROFILE STAT 12/22/2020 9:55 PM CDT HIV-1 HIV-2 ANTIGEN/ANTIBODY Routine 02/22/2018 1:00 PM CDT Chronic obstructive pulmonary disease, unspecified COPD type Positive SUMMER (antinuclear antibody) Myalgia Schizoaffective disorder, unspecified type CKD (chronic kidney disease) stage 3, GFR 30-59 ml/min Anxiety Neuropathy Chronic narcotic dependence History of drug abuse Tobacco abuse Joint swelling HEPATITIS C ANTIBODY Routine 07/19/2016 10:05 AM SURFACE BOSS from Last 3 Months or Most Recently Relevant to Health Maintenance Results * GLUCOSE - POINT OF CARE (12/23/2020 4:04 AM CDT) [facility] Glucose WB/POC 111 70 - 115 mg/dL 12/23/2020 4:09 AM T [facility] Specimen Type Arterial/C apillary 12/23/2020 4:09 AM T [facility] Blood BLOOD SPECIMEN / Unknown 12/23/2020 4:04 AM CDT 12/23/2020 4:09 AM CDT us Sung Ledezma MD LAB - POINT OF CARE ORDERABL ES Final Result [facility] [address] [place] [address], [facility] [phone] * (ABNORMAL) LIPID PROFILE (12/22/2020 9:55 PM CDT) [facility] Cholesterol Total 225(H) <200 mg/dL 12/22/2020 10:37 PM [facility] HDL 31(L) >40 mg/dL 12/22/2020 10:37 PM [facility] Comment: ATP III Classification of HDL Cholesterol: <40 mg/dL: Considered a major risk factor. >60 mg/dL: Considered a negative risk factor. LDL Calculated 120(H) <100 mg/dL 12/22/2020 10:37 PM [facility] Comment: ATP III Classification of LDL Cholesterol: <100 mg/dL: Optimal 100 - 129 mg/dL: Near Optimal/Above Optimal 130 - 159 mg/dL: Borderline High 160 - 189 mg/dL: High >190 mg/dL: Very High Triglycerides 371(H) <150 mg/dL 12/22/2020 10:37 PM [facility] Comment: ATP III Classification of Triglycerides: <150 mg/dL: Normal 150 - 199 mg/dL: Borderline High 200 - 400 mg/dL: High >500 mg/dL: Very High Blood BLOOD SPECIMEN / Unknown Venipuncture / Unknown 12/22/2020 9:55 PM CDT 12/22/2020 10:23 PM CDT us Sima Aguirre MD LAB - CHEMISTRY ORDERABLES Fin al Result Performing Organization Address [facility]/ZIP Co de Phone Number [facility] [address] [place] [address], [facility] [phone] * HIV-1 HIV-2 ANTIGEN/ANTIBODY (02/22/2018 1:00 PM CDT) HIV Antigen/Antibod y 1 & 2 Non-reacti ve Non-react [place] 02/22/2018 2:34 PM CDT [facility] Comment: Neither HIV-1 p24 Antigen nor HIV-1/HIV-2 Antibodies are detected. Blood BLOOD SPECIMEN / Unknown Lab Venipuncture / Unknown 02/22/2018 1:00 PM CDT 02/22/2018 1:15 PM CDT us Eulalia Lema DO LAB - HEMATOLOGY ORDERABLE S Final Result Performing Organization Address [facility] [place] [address], [facility] [phone] * HEPATITIS C ANTIBODY (07/19/2016 10:05 AM SURFACE BOSS) Hepatitis C Antibody Non-react [place] Non-reac tive [facility] Comment: Hepatitis C Antibody screen indicates no serologic evidence of past or current infection with Hepatitis C Virus. Patients with unexplained liver disease who are immunocompromised or suspected of having acute Hepatitis C infection may benefit from Nucleic Acid Test (MILADIS) for Hepatitis C Viral RNA to confirm Hepatitis C status. Blood specimen (specimen) BLOOD SPECIMEN / Unknown 07/19/2016 10:05 AM SURFACE BOSS 07/19/2016 10:05 AM SURFACE BOSS us Leanne Hatfield MD LAB - CHEMISTRY ORDERA BLES Final Result Performing Organization Address [facility] [place] [address], [facility] [phone] from Last 3 Months or Most Recently Relevant to Health Maintenance Insurance * Guarantor: MELINDA SOSA Account Type Relation to Patient Date of Phone Billing Address Personal/Family 1965 [id number] [employer] [facility] [place] Advance Directives * Full Code (Latest Code Status on File) Date Activated Date Inactivated Comments 12/22/2020 6:40 PM 12/23/2020 1:04 PM * Full Code Date Activated Date Inactivated Comments 09/02/2020 11:16 PM 09/04/2020 2:09 PM Care Teams Dye Reel Operator Helper Relationship Specialty Start Date End Date Dayna Maki MD PCP - General 12/24/20 Dayna Maki MD 12/22/20 Eulalia Lema DO Resident - PCP Internal Medicine 02/15/18
--- OUTSIDE RECORDS SUMMARY | 2024-11-17 11:13 | XMS_ITS | Continuity of Care Document ---
Author Organization [facility] Address [address] [place] [address] [place] [address] Phone Care Team Providers Care Soa Architect Name Role Phone Carloz Land MD Unavailable [...] day as needed for constipation - Active ProAir HFA 90 mcg/actuation aerosol inhaler inhale 2 puff by inhalation route every 4 - 6 hours as needed as needed - Active PRN for sob hydrochlorothiazide 25 mg tablet take 1 tablet by oral route every day 25 MG - Active cyclobenzaprine 10 mg tablet take 1 tablet by oral route 2 times every day as needed 10 MG - Active PRN for pain, avoid driving or operate machines Zyrtec 10 mg capsule take one Po daily - Active Vistaril 50 mg capsule take 1 capsule by oral route 4 times every day as needed - Active Procedures Procedure Date OFFICE/OUTPATIENT VISIT, EST OFFICE/OUTPATIENT VISIT, EST OFFICE/OUTPATIENT VISIT, EST PREV VISIT, NEW, AGE 40-64 OFFICE/OUTPATIENT VISIT, NEW Advance Directives Directive Yes / No Effective Date File Name No Information Encounters Encounter Description Practice Location Reason(s) For Visit Diagnoses Date Provider Providers Copied on Encounter [facility], [address], [place], [place], [id number], [place] tel:[phone] [facility] No Information 8 Emery Carty. [address], [place], [place], [address] , [place]. tel:[phone] OFFICE/OUTPA TIENT VISIT, EST [facility], [address], [place], [place], [id number], tel:[phone] [facility] COPD1 (chief complaint) foot pain1 (chief complaint) constipati on (chief complaint) Pain in unspecified footEmphysemaNeurop athyConstipationGen eralized Anxiety Disorder 8 Emery Edwards [address], [place], [place], [address] , [place]. tel:[phone] Referring Provider: Alesha Dickson [facility] A, [place], [place], [id number]. tel:[phone] OFFICE/OUTPA TIENT VISIT, EST [facility], [address], [place], [place], [id number], [place] tel:[phone] [facility] sick1 (chief complaint) COPD1 (chief complaint) constipati on1 (chief complaint) EmphysemaConstipati onEssential (primary) hypertensionPneumon ia 8 Emery Edwards [address], [place], [place], [address] , [place]. tel:[phone] Referring Provider: Alesha Dickson [address], [place], [place], [id number]. tel:[phone] OFFICE/OUTPA TIENT VISIT, EST [facility], [address], [place], [place], [address], [place] tel:[phone] [facility] foot pain1 (chief complaint) lumbago1 (chief complaint) weight loss1 (chief complaint) NeuropathyPain in unspecified lower legConstipationAbno rmal weight loss 8 Emery Edwards [address] [facility] [place] [address] , [place]. tel:[phone] Referring Provider: Carloz Land, [facility]lesha [facility] [place], [id number]. tel:[phone] PREV VISIT, NEW, AGE 40-64 [facility], [address], [place], [place], [address], [place] tel:[phone] [facility] Medicine PHysical (chief complaint) Encounter for general adult medical exam w abnormal findingsEssential (primary) hypertensionNeuropa thyEmphysemaAbnorma l weight loss 8 Emery Carty. [address] [place], [place], [address] , [place]. tel:[phone] Referring Provider: Carloz Land, Alesha [place], [id number]. tel:[phone] Family History Family Member Type Diagnosis Age At Onset Mother Problem (finding) Renal disease Mother Problem (finding) Coronary artery disease 56 Brother Problem (finding) murdered Mother Problem (finding) Diabetes mellitus Sister Problem (finding) Alive and well Father Problem (finding) colon [place] Payers Payer name Insurance type Covered green party ID Authoriza tion(s) No Information Social History [...] -Podiatric Medicine & Surgery Service Providers : Wire Mesh Knitter (related to Pain in unspecified lower leg) ordered Referral Ordered: ANKLE XRAY, 3+ VIEWS ordered Referral Ordered: [place] ARTERIAL DOPPLER ordered Referral Referred To: DAKOTA DEJESUS [address] [place] [address],[address] [place], [place], [phone] Ordered: Referrals: Podiatric Medicine & Surgery Service Providers : Wire Mesh Knitter. DAKOTA DEJESUS. Evaluate and treat ordered Referral [...] also was told she has lupus but regional climate change analyst told her she does not have lupus.. [...]
--- OUTSIDE RECORDS SUMMARY | 2024-11-17 11:13 | XMS_ITS | Clinical Summary ---
Author Organization [facility] Address [address] [place] [address] Phone Care Team Providers Care Road Boss Name Role Phone JOSE HOLLINGSWORTH Unavailable [phone] SAMSON JANG MD Unavailable [phone] Reason for Visit and [...] Documented On 3:21PM By JOSE CADENA ; [facility] Varenicline Tartrate 1 MG Oral Tablet 06/20/2023 Pro vider: SAMSON JANG MD Diagnosis: Last Documented On 06/21/2023 9:05AM By Snehal CID ; [facility] Ketorolac Tromethamine 10 MG Oral Tablet 06/08/2023 Provider: SAMSON JANG MD Diagnosis: Last Documented On 06/21/2023 9:06AM By Snehal CID ; [facility] Latanoprost 0.005% Ophthalmic Solution 06/05/2023 Pr ovider: Diagnosis: Last Documented On 06/21/2023 9:05AM By Snehal CID ; [facility] QUEtiapine Fumarate 200 MG Oral Tablet 01/10/2023 Pr ovider: Diagnosis: AT BEDTIME Last Documented On 3 10:08AM By Snehal CID ; [facility] Melatonin 5 MG Oral Capsule 12/20/2022 Provider: Diagnosis: Last Documented On 3 11:26AM By Snehal CID ; [facility] Banophen 25 MG Oral Capsule 12/19/2022 Provider: SAMSON JANG MD Diagnosis: Last Documented On 3 11:22AM By Snehal CID ; [facility] Pregabalin 150 MG Oral Capsule 12/19/2022 Provider: SAMSON JANG MD Diagnosis: Last Documented On 3 11:23AM By Snehal CID ; [facility] QUEtiapine Fumarate 100 MG Oral Tablet 12/05/2022 Pr ovider: Diagnosis: Last Documented On 3 11:24AM By Snehal CID ; [facility] Ventolin HFA 108 (90 Base) M CG/ACT Inhalation Aerosol Solution 11/30/2022 Provider: SAMSON JANG MD Diagnosis: Last Documented On 3 11:25AM By Snehal CID ; [facility] hydroCHLOROthiazide 12.5 MG Oral Tablet 11/28/2022 P rovider: SAMSON JANG MD Diagnosis: Last Documented On 3 11:22AM By Snehal CID ; [facility] Dicyclomine HCl 20 MG Oral Tablet 11/27/2022 Provide r: SAMSON JANG MD Diagnosis: Last Documented On 3 11:23AM By Snehal CID ; [facility] Methocarbamol 750 MG Oral Tablet 11/24/2022 Provider : SAMSON JANG MD Diagnosis: Last Documented On 3 11:23AM By Sneahl CID ; [facility] Atorvastatin Calcium 40 MG Oral Tablet 11/24/2022 Pr ovider: SAMSON JANG MD Diagnosis: Last Documented On 3 11:23AM By Snehal CID ; [facility] Candesartan Cilexetil 32 MG Oral Tablet 11/20/2022 Nataly gross: SAMSON JANG MD Diagnosis: Last Documented On 3 11:22AM By Snehal CID ; [facility] Medications Administered Includes: Administered Medications from this encounter No Administered Medications Recorded Results Includes: Results discussed during this encounter No Results Recorded For Specified Dates History of Present Illness Includes: History of Present Illness from this encounter HPI Pharmacy name:~location:[facility]. Social History Description Last Updated Former smoker 08/02/2023 Last Documented On 3 4:48PM ; [facility] Current smoker 12/20/2022 Last Documented On 3 4:48PM ; [facility] Difficulty walking 12/20/2022 Last Documented On 3 4:48PM ; [facility] Smoking packs of cigarettes per day 1 Last Documented On 3 4:48PM ; [facility] Smoking Status Unknown Medical History Includes: Medical [...] Documented On 4 2:44PM ; [facility] NSAIDs Allergy 12/20/2022 Active Last Documented On 4 2:44PM ; [facility] Meloxicam Allergy 12/20/2022 Active Last Documented On 4 2:44PM ; [facility] Effexor XR Allergy 12/20/2022 Active Last Documented On 4 2:44PM ; [facility] Contrast Dye Allergy 12/20/2022 Active Last Documented On 4 2:44PM ; [facility] Note: THROAT CLOSES AND STOPS BREATHING Aspirin Allergy 12/20/2022 Active Last Documented On 4 2:44PM ; [facility] Encounters Encounter Provider Location Date Check-In Time Check-Out Time Diagnosis * PHONE CALL JOSE ACEVEDO 05/31/2023 4:48PM 11:59PM Insurance Includes: Active Insurance Policies Plan Name Member ID Group # Subscriber Relationship Effect austin Dates 1 - [facility] [id number] UZMA SOSA Se lf Clinical Notes Includes: Clinical Notes from this encounter * Progress note Date Encounter Last Documented by 05/31/2023 * PHONE CALL Last documented on 06/04/2023; 3:18 PM, JOSE ACEVEDO; [facility] Chief Complaint Phone Call - Chief Concern: reason for call:pt states ever since i got the injection done on 05/23/23, i've gotten worse , pt c/o increased pain in neck up to back of head, down left side of back, left side of buttocks, left arm and left leg pt phone # for return call:[phone] date/initials:05/31/23, [place]. History of Present Illness Pharmacy name:~location:[facility]. Current Medication - ALPRAZolam 0.5 MG Oral [...]
--- OUTSIDE RECORDS SUMMARY | 2024-11-17 11:13 | XMS_ITS | Encounter Summary ---
Author Organization [facility] Address [facility] [facility] [place] [address] Care Team Providers Care Buggy Ladle Tender Name Role Phone Eulalia Lema DO Primary Care Provider [phone] Dayna Maki MD Primary Care Provider Dayna Maki MD Primary Care Provider Mj Lee MD Primary Care Provider [phone] Dayna Maki MD Unavailable Eulalia Lema DO Unavailable [phone] Dayna Maki MD Primary Care Provider Reason for Visit * Reason Onset Date Comments Results 03/01/2018 Encounter Details Date Type Department Care Team (Late st Contact Info) Description 03/01/2018 Telephone [facility] General Internal Medicine [address] [address] Eulalia Lema DO [address] [facility] [place] [address] Results Social History Tobacco Use Types Packs/Day Years Used Date Smoking Tobacco: Every Day Cigarettes 1 37 Smokeless Tobacco: Never Alcohol Use Standard Drinks/Week Comments No 0 (1 standard drink = 0.6 oz pur e alcohol) Comments No Sex and Gender Information Value Date Recorded Sex Assigned at Not on file Legal Sex Female 11:00 PM GARMENT SEWER HAND Gender Identity Not on file Sexual Orientation [...] documented as of this encounter Care Teams Buggy Ladle Tender Relationship Specialty Start Date End Date Eulalia Lema DO PCP - General 02/18/18 03/20/18 Dayna Maki MD PCP - General 03/21/18 12/21/20 Dayna Maki MD PCP - General Internal Medicine 12/22/20 12/22/20 Mj Lee MD [address] [place] [address] PCP - General Internal Medicine 12/23/20 12/23/20 Dayna Maki MD [address] [facility] [place] [address] PCP - General 12/24/20 Dayna Maki MD 12/22/20 Eulalia Lema DO Resident - PCP Internal Medicine 02/15/18 documented as of this encounter
--- OUTSIDE RECORDS SUMMARY | 2024-11-17 11:13 | XMS_ITS | Encounter Summary ---
Author Organization [facility] Address [address] [place] [address] Care Team Providers Care Cpa Tax Name Role Phone Dayna Maki MD Primary Care Provider Dayna Maki MD Primary Care Provider Mj Lee MD Primary Care Provider [phone] Dayna Maki MD Unavailable [phone] Eulalia Lema DO Unavailable [phone] Dayna Maki MD Primary Care Provider Reason for Visit * Reason Onset Date Comments General 04/05/2018 pt is waiting fo r a call back when her test is scheduled Encounter Details Date Type Department Care Team (Late st Contact Info) Description 04/05/2018 Telephone [facility] General Internal Medicine [address] [facility] [facility] [address] [place] [address] Dayna Maki MD [address] [facility] [address] [place] [address] General (pt is waiting for [...] on file Legal Sex Female 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 Gender Identity Not on file Sexual [...] documented as of this encounter Care Teams Cpa Tax Relationship Specialty Start Date End Date Danya Maki MD PCP - General 03/21/18 12/21/20 Dayna Maki MD PCP - General Internal Medicine 12/22/20 12/22/20 Mj Lee MD [address] [place] [address] [place] [address] PCP - General Internal Medicine 12/23/20 12/23/20 Dayna Maki MD [address] [place] [address] [place] [address] PCP - General 12/24/20 Dayna Maki MD 12/22/20 Eulalia Lema DO [address] [place] [address] Resident - PCP Internal Medicine 02/15/18 documented as of this encounter
--- OUTSIDE RECORDS SUMMARY | 2024-11-17 11:13 | XMS_ITS | Clinical Summary ---
Author Organization [facility] Address [address] [place] [address] Phone Care Team Providers Care Mason Helper Name Role Phone TAQUERIA CADENA, JOSE Benson Unavailable [phone] SAMSON JANG MD Unavailable [phone] Reason for Visit and [...] - Last Documented On 08/06/2023 1:09PM ; [facility] - Cervical spine stenosis [M48.02 - Spinal stenosis, cervical region] - Last Documented On 08/06/2023 1:09PM ; [facility] - Cervical radiculopathy [M54.12 - Radiculopathy, cervical region] - Last Documented On 08/06/2023 1:09PM ; [facility] - Myalgia and myositis [M79.18 - Myalgia, other site] - Last Documented On 08/06/2023 1:09PM ; [facility] Medical Equipment - Implanted Devices [...] On 4 3:21PM By JOSE GLOVER- ; [facility] Varenicline Tartrate 1 MG Oral Tablet 06/20/2023 Pro vider: SAMSON JANG MD Diagnosis: Last Documented On 06/21/2023 9:05AM By Snehal CID ; [facility] Ketorolac Tromethamine 10 MG Oral Tablet 06/08/2023 Provider: SAMSON JANG MD Diagnosis: Last Documented On 06/21/2023 9:06AM By Snehal CID ; [facility] Latanoprost 0.005% Ophthalmic Solution 06/05/2023 Pr ovider: Diagnosis: Last Documented On 06/21/2023 9:05AM By Snehal CID ; [facility] QUEtiapine Fumarate 200 MG Oral Tablet 01/10/2023 Pr ovider: Diagnosis: AT BEDTIME Last Documented On 3 10:08AM By Snehal CID ; [facility] Melatonin 5 MG Oral Capsule 12/20/2022 Provider: Diagnosis: Last Documented On 3 11:26AM By Snehal CID ; [facility] Banophen 25 MG Oral Capsule 12/19/2022 Provider: SAMSON JANG MD Diagnosis: Last Documented On 3 11:22AM By Snehal CID ; [facility] Pregabalin 150 MG Oral Capsule 12/19/2022 Provider: SAMOSN JANG MD Diagnosis: Last Documented On 3 11:23AM By Snehal CID ; [facility] QUEtiapine Fumarate 100 MG Oral Tablet 12/05/2022 Pr ovider: Diagnosis: Last Documented On 3 11:24AM By Snehal CID ; [facility] Ventolin HFA 108 (90 Base) M CG/ACT Inhalation Aerosol Solution 11/30/2022 Provider: SAMSON JANG MD Diagnosis: Last Documented On 3 11:25AM By Snehal CID ; [facility] hydroCHLOROthiazide 12.5 MG Oral Tablet 11/28/2022 P rovider: SAMSON JANG MD Diagnosis: Last Documented On 3 11:22AM By Snehal CID ; [facility] Dicyclomine HCl 20 MG Oral Tablet 11/27/2022 Provide r: SAMSON JANG MD Diagnosis: Last Documented On 3 11:23AM By Snehal CID ; [facility] Methocarbamol 750 MG Oral Tablet 11/24/2022 Provider : SAMSON JANG MD Diagnosis: Last Documented On 3 11:23AM By Snehal CID ; [facility] Atorvastatin Calcium 40 MG Oral Tablet 11/24/2022 Pr ovider: SAMSON JANG MD Diagnosis: Last Documented On 3 11:23AM By Snehal CID ; [facility] Candesartan Cilexetil 32 MG Oral Tablet 11/20/2022 P rovider: SAMSON JANG MD Diagnosis: Last Documented On 3 11:22AM By Snehal CID ; [facility] Medications Administered Includes: Administered Medications [...] 94 Last Documented: On 08/02/2023 2:42PM ; [facility] Results Includes: Results discussed during this encounter [...] aspect of daily living. 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 She [...] 08/02/2023 Last Documented On 4 1:09PM ; [facility] No consumption of alcohol 08/02/2023 Last Documented On 4 1:09PM ; [facility] Not using drugs 08/02/2023 Last Documented On 4 1:09PM ; [facility] Difficulty walking 12/20/2022 Last Documented On 4 2:38PM ; [facility] Smoking packs of cigarettes per day 1 Last Documented On 4 2:38PM ; [facility] Smoking Status Unknown Procedures and Surgical History Includes: Procedures from this encounter Procedures Code Diagnosis Performing Provider Service L ocation Service Date surgery Last Documented On 4 2:38PM ; [facility] administered injection of tr igger point(s), three [...] ~ Last Documented On 4 2:38PM ; [facility] use of tobacco assessment performed 1000F Last Documented On 4 2:45PM ; [facility] standardized depression screening: negative for symptoms 3351F Last Documented On 4 2:38PM ; [facility] review of medications documented 1160F Last Documented On 4 2:45PM ; [facility] screening for adult depression: impressi on and score 0 Last Documented On 4 2:38PM ; [facility] Clinical summary provided to patient ~ Patient understands and agrees with treatment plan. Questions answered Last Documented On 4 2:38PM ; [facility] SOAPP-R: total score 3 Last Documented On 4 2:38PM ; [facility] Surgical History Last Updated No Pacemaker 08/02/2023 Last Documented On 4 1:09PM ; [facility] Medical History Includes: Medical History addressed during this encounter Description Last Updated Denies a fear of falling. 08/02/2023 Last Documented On 4 1:09PM ; [facility] Has had no fall in the last 12 months. 0 08/02/2023 Last Documented On 4 1:09PM ; [facility] No Pain Pump 08/02/2023 Last Documented On 4 1:09PM ; [facility] No Spinal cord stimulator 08/02/2023 Last Documented On 4 1:09PM ; [facility] CT/MRI September 2022neckGRMCshoulderFeb 202 3[facility]MC 04/11/2023 Last Documented On 4 2:38PM ; [facility] Currently wearing eyeglasses 04/11/2023 Last Documented On 4 2:38PM ; [facility] Injection/Nerve blocks 04/11/2023 Last Documented On 4 2:38PM ; [facility] Message/Acupressure 04/11/2023 Last Documented On 4 2:38PM ; [facility] Pain Clinic 04/11/2023 Last Documented On 4 2:38PM ; [facility] Physical therapy 04/11/2023 Last Documented On 4 2:38PM ; [facility] Please list all illnesses/co nditions you have been diagnosed with: HPTN; peripheral vascular disease; high cholesterol; restricted breathing disorder; lung stone; seizures; allergies; depression 04/11/2023 Last Documented On 4 2:38PM ; 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 on R femur removed 1999 04/11/2023 Last Documented On 4 2:38PM ; [facility] Severe Pain 04/11/2023 Last Documented On 4 2:38PM ; [facility] Treatment with TENS unit 04/11/2023 Last Documented On 4 2:38PM ; [facility] X-rays September 2022neck and backGRMC 04/11 Last Documented On 4 2:38PM ; [facility] Family History Includes: Family History addressed during this encounter Description Last Updated Maternal history of family history of is chemic heart disease 08/02/2023 Last Documented On 4 1:09PM ; [facility] Maternal history of family history of ki dney disease 08/02/2023 Last Documented On 4 1:09PM ; [facility] Review of Systems Includes: Review of Systems [...] Active Last Documented On 4 2:44PM ; [facility] NSAIDs Allergy 12/20/2022 Active Last Documented On 4 2:44PM ; [facility] Meloxicam Allergy 12/20/2022 Active Last Documented On 4 2:44PM ; [facility] Effexor XR Allergy 12/20/2022 Active Last Documented On 4 2:44PM ; [facility] Contrast Dye Allergy 12/20/2022 Active Last Documented On 4 2:44PM ; [facility] Note: THROAT CLOSES AND STOPS BREATHING Aspirin Allergy 12/20/2022 Active Last Documented On 4 2:44PM ; [facility] Encounters Encounter Provider Location Date Check-In Time Check-Out Time Diagnosis PAIN MANAGEMENT FOLLOW UP JOSE CADENA [facility] 08/02/19 24 2:37PM 2:57PM Spinal Stenosis Cervical,Myalgia and Myositis,Cervica l Radiculopathy,Sp ondylosis with Radiculopathy Cervical Region Insurance Includes: Active Insurance Policies Plan Name Member ID Group # Subscriber Relationship Effect austin Dates 1 - [facility] [id number] UZMA SOSA Se lf Clinical Notes Includes: Clinical Notes from this encounter * Progress note Date Encounter Last Documented by 08/02/2023 PAIN MANAGEMENT FOLLOW UP Last d ocumented on 08/06/2023; 1:09 PM, JOSE CADENA; [facility] Chief Complaint The Chief Complaint [...] aspect of daily living. 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 She [...] / Procedural: No Pacemaker. Tests: [facility] September 20[facility] Physical Trauma: Has had no fall [...] extremity C5/6 dermatome, C6/7 dermatome in hand. 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 Psych: No apparent [...] 50% of this time spent in direct [id number] counseling and coordination of care. Results of [...] but may be subject to typographical or operational test mechanic errors. Verify all diagnoses, medications, dosages, and [...]
--- OUTSIDE RECORDS SUMMARY | 2024-11-17 11:13 | XMS_ITS | Encounter Summary ---
Author Organization [facility] Address [facility] [facility] [place] [address] Care Team Providers Care Movie Projectionist Name Role Phone Eulalia Lema DO Primary Care Provider [phone] Dayna Maki MD Primary Care Provider Dayna Maki MD Primary Care Provider Mj Lee MD Primary Care Provider [phone] Dayna Maki MD Unavailable Eulalia Lema DO Unavailable [phone] Dayna Maki MD Primary Care Provider Reason for Visit * Reason Onset Date Comments Medication Issue 03/11/2018 Follow-up 03/14/2018 1st attempt to r each patient to relay message from Encounter Details Date Type Department Care Team (Late st Contact Info) Description 03/11/2018 Telephone [facility] General Internal Medicine [address] [facility] [address] [place] [address] Eulalia Lema DO [address] [facility] [place] [address] Medication Issue; Follow-up (1st attempt [...] on file 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 Gender Identity Not on file Sexual Orientation [...] documented as of this encounter Care Teams Movie Projectionist Relationship Specialty Start Date End Date Eulalia Lema DO PCP - General 02/18/18 03/20/18 Dayna Maki MD PCP - General 03/21/18 12/21/20 Dayna Maki MD PCP - General Internal Medicine 12/22/20 12/22/20 Mj Lee MD [address] [place] [address] PCP - General Internal Medicine 12/23/20 12/23/20 Dayna Maki MD [address] [place] [address] PCP - General 12/24/20 Dayna Maki MD 12/22/20 Eulalia Lema DO Resident - PCP Internal Medicine 02/15/18 documented as of this encounter
--- OUTSIDE RECORDS SUMMARY | 2024-11-17 11:13 | XMS_ITS | Encounter Summary ---
Author Organization [facility] Address [facility] [place] [address] Care Team Providers Care Affiliate Manager Name Role Phone Eulalia Lema DO Primary Care Provider [phone] Dayna Maki MD Primary Care Provider aDyna Maki MD Primary Care Provider Mj Lee MD Primary Care Provider [phone] Dayna Maki MD Unavailable Eulalia Lema DO Unavailable [phone] Dayna Maki MD Primary Care Provider Encounter Details Date Type Department Care Team (Late [facility]) Description 03/07/2018 Telephone [facility] General Internal Medicine [address] [address] Eulalia Lema DO [address] [facility] [place] [address] Social History Tobacco Use Types Packs/Day Years Used Date Smoking Tobacco: Every Day Cigarettes 1 37 Smokeless Tobacco: Never Alcohol Use Standard Drinks/Week Comments No 0 (1 standard drink = 0.6 oz pur e alcohol) Comments No Sex and Gender Information Value Date Recorded Sex Assigned at Not on file 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 Gender Identity Not on file Sexual Orientation Not on file documented as of this encounter Plan of Treatment Not on file documented as of this encounter Visit Diagnoses Not on filedocumented in this encounter Additional Health Concerns Infection Onset Date Last Indicated Resolved Time COVID-19 Under Investigation 12/22/2020 12/22/2020 12/22/2020 7:58 PM CDT documented as of this encounter Care Teams Affiliate Manager Relationship Specialty Start Date End Date Eulalia Lema DO PCP - General 02/18/18 03/20/18 Dayna Maki MD PCP - General 03/21/18 12/21/20 Dayna Maki MD PCP - General Internal Medicine 12/22/20 12/22/20 Mj Lee MD [address] [place] [address] PCP - General Internal Medicine 12/23/20 12/23/20 Dayna Maki MD [address] [place] [address] PCP - General 12/24/20 Dayna Maki MD 12/22/20 Eulalia Lema DO Resident - PCP Internal Medicine 02/15/18 documented as of this encounter
--- OUTSIDE RECORDS SUMMARY | 2024-11-17 11:13 | XMS_ITS ---
Care Plan - [facility] Created on: November 17, 2024 UZMA SOSA : 1965 Sex: Female Author Organization [facility] Address [address] [place] [address] Phone Care Team Providers Care Seater Assembler Name Role Phone JOSE HOLLINGSWORTH Unavailable [phone] SAMSON JANG MD Unavailable [phone]
--- OUTSIDE RECORDS SUMMARY | 2024-11-17 11:14 | XMS_ITS | Clinical Summary ---
Author Organization [facility] Address [address] [place] [address] Phone Care Team Providers Care Flight Test Data Acquisition Technician Name Role Phone Unavailable Primary Care Provider Unavailabl e Allergies Active Allergy Reactions Criticality Noted Date Comments Adhesive Tape Rash,Other (see Comments) High 03/16/2017 Pulls off her skin Aspirin Anaphylaxis,Unknown High 03/16/2017 Iodinated Contrast Media Anaphylaxis,Unknown High 03/16/2017 [place]-3 Fatty Acids Anaphylaxis High 11/06/2017 Meloxicam-Liniment Anaphylaxis [...] Cologuard 2013 Immunochemical Fecal Occult Blood 2013 Zoster Immunization (1 of 2) 2013 [...] HEPATITIS C ANTIBODY (07/19/2016) Blood specimen (specimen) Leanne Tohmpson MD CHEMISTRY ORDERABLES F inal Result from Last 3 Months or Most Recently Relevant to Health Maintenance Insurance MEDICAID [place]
--- OUTSIDE RECORDS SUMMARY | 2024-11-17 11:14 | XMS_ITS | Referral Summary ---
Author Organization [facility] [address] 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
--- OUTSIDE RECORDS SUMMARY | 2024-11-17 11:14 | XMS_ITS | Encounter Summary ---
Author Organization [facility] Care Team Providers Care Coiled Coil Inspector Name Role Phone No, Physician Primary Care Provider [phone] Mj Lee MD Primary Care Provider [phone] Encounter Details Date Type Department Care Team (Latest Contact Info) Description 09/05/2016 Orders Only [facility] Provider, MD [place] [address] [place] [address] Social History Tobacco Use Types Packs/Day Years Used Date Smoking Tobacco: Never Assessed Comments Unknown Sex and Gender Information Value Date Recorded Sex Assigned at Not on file 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 us Historical Provider [facility] KAREN ALANIS Final Result documented in this encounter Visit Diagnoses Not on filedocumented in this encounter Care Teams Coiled Coil Inspector Relationship Specialty Start Date End Date No, Physician PCP - General 06/10/18 12/16/20 Mj Lee MD [address] [place] [address] [place] [address] PCP - General Internal Medicine 12/17/20 documented as of this encounter
--- OUTSIDE RECORDS SUMMARY | 2024-11-17 11:14 | XMS_ITS | Clinical Summary ---
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
--- OUTSIDE RECORDS SUMMARY | 2024-11-17 11:14 | XMS_ITS | Patient Health Record ---
Author Organization [facility] Address [address] [place] [address] Care Team Providers Care Drapery Estimator Name Role Phone Lee, Mj Primary Care Provider Lainey Rivera Unavailable [phone] Ary Hinojosa Unavailable [phone] Allergies Allergen (clinical drug ingredient) Drug/Non Drug Allergy documented on EMR Reaction Allergy Type Onset Date Status fish oil (uncoded) Unknown Allergy A ctive Shellfish (FN) shell fish (uncoded) Unknown Allergy Active aspirin Aspirin anaphylaxis Drug Allergy Activ e clarithromycin Clarithromycin Unknown Drug Allergy Active Effexor Unknown Drug Allergy Active ibuprofen Ibuprofen anaphylaxis Drug Allergy Activ e tizanidine Tizanidine Unknown Drug Allergy Activ e Results Component Value Reference Range Notes Basic Metabolic Panel (8)* Reviewed date:02/27/2024 10:22:19 AM Interpretation:Stable Performing Lab: Notes/Report: Stable CBC With Differential/Platel et* Reviewed date:02/27/2024 10:21:52 AM Interpretation:Stable Performing Lab: Notes/Report: Stable Urinalysis In-House, Routine Reviewed date:08/04/2024 12:08:25 PM Interpretation: Performing Lab: Notes/Report: Urine-Color yellow Appearance clear Leukocytes trace Nitrite, Urine neg Urobilinogen,Semi-Qn 0.2 Protein neg pH 6.0 Occult Blood neg Specific [place] 1.020 Ketones neg Bilirubin neg Glucose neg Hemoglobin A1c CLIA Waived Reviewed date:05/14/2024 11:24:08 AM Interpretation: Performing Lab: Notes/Report: Hemoglobin A1c 6.8 4.0 - 6.4 % Hemoglobin A1c CLIA Waived Reviewed date:11/26/2023 09:39:43 AM Interpretation: Performing Lab: Notes/Report: Hemoglobin A1c 6.4 4.0 - 6.4 % Reason For Referral No Information Medications Medication SIG (Take, Route, Frequency, Duration) Notes Start Date End Date Status hydroCHLOROthiazide 12.5 MG 1 tablet in the morning Orally Once a day for 90 days Active Baclofen 10 MG 1 tablet as needed Orally Twice a day for 30 days Active Capsaicin 0.025 % APPLY A THIN LAYER TO THE AFFECTED AREA THREE TIMES DAILY Externally as directed for 25 days Active Lidocaine 5 % 1 patch remove after 12 hours Externally Once a day Active Varenicline Tartrate 1 MG 1 tablet after eating with a full glass of water (BEGIN AFTER COMPLETING 0.5 MG TAB) Orally Twice a day for 30 08/26/2024 Active Dicyclomine HCl 20 MG 1 tablet Orally Three times a day for 30 days Active GoodSense Nicotine 4 MG 1 piece chew for 30 minutes as needed Mouth/Throat every 1-2 hours for 15 days 08/27/2024 Active Lidocaine 5 % 1 application as needed TO LOW BACK Externally EVERY 6 HOURS 06/13/2023 Active Melatonin 2.5 MG/10ML TAKE 20-40ML BY MOUTH EVERY NIGHT AT BEDTIME for 24 Active Atorvastatin Calcium 40 MG 1 tablet Orally Once a day for 90 days Active Banophen 25 MG 1 capsule Orally every 6 hours for 30 days Active Candesartan Cilexetil 32 mg TAKE 1 TABLET BY MOUTH DAILY for 90 Active Pantoprazole Sodium 40 MG 1 tablet Orall y Once a day Active Omeprazole 20 MG 2 capsules 1/2 to 1 hour before morning meal Orally Once a day for 30 days Active Pregabalin 150 MG 1 capsule Orally twice a day for 30 days 09/03/2024 Not-Taking Sulindac 200 MG 1 tablet with food Orally Twice a day for 30 days As needed BACK PAIN STOP TORADOL 11/13/2024 Active Mirtazapine 30 MG 1 tablet at bedtime Orally Once a day for 30 days Active Cyclobenzaprine HCl 10 MG 1 tablet Orall y three times a day for 30 days Not-Taking QUEtiapine Fumarate 100 mg TAKE 1 TO 2 TABLETS BY MOUTH AT BEDTIME for 30 days Active QUEtiapine Fumarate 200 MG 2 tablet at bedtime Orally Once a day for 30 days Active Immunizations Vaccine Route Administration Date Status Comme nts FLU VAC NO PRSV 4VAL 6 mo+ IM Intramuscular 05/17/2022 Administered Pt tolerated injection well. Pt voiced no questions or concerns. Social History Tobacco Use: Social History Observation Description Date Details (start date - stop date) Current Smoker NA - NA Sex Assigned At : Social History Observation Description Sex Assigned At Female Dont use, Tobacco Use/Smoking Question Answer Notes Are you a nonsmoker Alcohol Screen (Audit-C) Question Answer Notes Did you have a drink containing alcohol in the p ast year? No PRAPARE Question Answer Notes Date Completed/Updated: 06/03/2024 What is your current housing situation? I have h ousing Are you worried about losing your housing? No What is the highest level of school that you have finished? More than high school What is your current work situation? Oth erwise unemployed but not seeking work (ex. 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 Check all that apply Medicine or any health care (medical, dental, mental health or vision) Has lack of transportation k ept you from medical appointments, meetings, work or from getting things needed for daily living? No How often do you see or talk to people that you care about and feel close to? (For example: talking to friends on the phone, visiting friends or family, going to episcopalian or club meetings) 3 to 5 times a week How stressed are you? Stress is when someone feels tense, nervous, anxious, or can\t sleep at night because their mind is troubled Not at all In the past year have you sp ent more than 2 nights in a row in a [facility]cc, correction, long term center, or juvenile correctional facility? No Are you a refugee? No What country are you from? [place] Do you feel physically and e motionally safe where you currently live? Yes In the past year, have you b een afraid of your partner or ex-partner? No PRAPARE Score: 3 Tobacco Control (Standard) Question Answer Notes Tobacco use: Current smoker Additional Findings: Tobacco user Moderate cigar ette smoker (10-19 cigs/day) Section Notes: Lives alone in apartment. POA none. Lives alone in apartment. POA none. Lives alone in apartment. POA none. Lives alone in apartment. POA none. Lives alone in apartment. POA none. Lives alone in apartment. POA none. Lives alone in apartment. POA none. Lives alone in apartment. POA none. Lives alone in apartment. POA none. Lives alone in apartment. POA none. Lives alone in apartment. POA none. Lives alone in apartment. POA none. Lives alone in apartment. POA none. Lives alone in apartment. POA none. Lives alone in apartment. POA none. Lives alone in apartment. POA none. Lives alone in apartment. POA none. Lives alone in apartment. POA none. Lives alone in apartment. POA none. Lives alone in apartment. POA none. Lives alone in apartment. POA none. Lives alone in apartment. POA none. Lives alone in apartment. POA none. Lives alone in apartment. POA none. Lives alone in apartment. POA none. Lives alone in apartment. POA none. Lives alone in apartment. POA none. Lives alone in apartment. POA none. Lives alone in apartment. POA none. Lives alone in apartment. POA none. Lives alone in apartment. PO A none. Lives alone in apartment. POA none. PRESCRIPTION # FILLED WRITTEN DRUG LABEL QTY DAYS STRENGTH MEDD [facility] REFILL NO. REFILLS [facility] 09/19/2022 09/19/2022 Pregabalin 60.0 30 150 MG NA Mj Lee Md [id number] [facility] [place], [place] NA 5 [place] 1 [id number] 08/21/2022 04/06/2022 Pregabalin 60.0 30 150 MG NA Mj Lee [place] [id number] [place] 1 [id number] 07/25/2022 04/06/2022 Pregabalin 60.0 30 150 MG NA Mj Lee Md [id number] G Lives alone in apartment. POA none. PRESCRIPTION # FILLED WRITTEN DRUG LABEL QTY DAYS STRENGTH MEDD [facility] REFILL NO. REFILLS STATE 09/19/2022 09/19/2022 Pregabalin 60.0 30 150 MG NA Mj Lee Md [id number] [facility] [place], [place] NA 5 [place] 1 [id number] 08/21/2022 04/06/2022 Pregabalin 60.0 30 150 MG NA Mj Lee Md [id number] [facility] [place], [place] NA 5 [place] 1 [id number] 07/25/2022 04/06/2022 Pregabalin 60.0 30 150 MG NA Mj Lee Md [id number] G Lives alone in apartment. PO A none. Lives alone in apartment. PO A none. Lives alone in apartment. PO A none. Lives alone in apartment. POA none. PRESCRIPTION # FILLED WRITTEN DRUG LABEL QTY DAYS STRENGTH MME [facility] REFILL NO. REFILLS STATE PATIENT [id number] 10/04/2023 10/04/2023 oxyCODONE HCL 28.0 7 5 MG 30 Radha [facility] [id number] [facility] [place], [place] NA 0 [place] [id number] 09/24/2023 08/24/2023 Pregabalin 60.0 30 150 MG NA Mj Lee Md [id number] [facility] [place], [place] NA 2 [place] [id number] 08/27/2023 08/24/2023 Pregabalin 60.0 30 150 MG NA Mj Lee Md [id number] [facility] [place], [place] NA 2 [place] [id number] 07/30/2023 06/05/2023 Pregabalin 60.0 30 150 MG NA Mj Lee Md [id number] [place] NA [place] [id number] 07/03/2023 06/05/2023 Pregabalin 60.0 30 150 MG NA Mj Lee Md [id number] G PRESCRIPTION # FILLED WRITTEN DRUG LABEL QTY DAYS STRENGTH MME [facility] REFILL NO. REFILLS STATE 01/16/2024 11/19/2023 Pregabalin 60.0 30 150 MG NA Mj Lee Md [id number] [place] NA [place] 1 [id number] 12/18/2023 11/19/2023 Pregabalin 60.0 30 150 MG NA Mj Lee Md [id number] [place] 2 [place] 1 [id number] 11/19/2023 11/19/2023 Pregabalin 60.0 30 150 MG NA Mj Lee Md [id number] [place] 1 [id number] 10/22/2023 08/24/2023 Pregabalin 60.0 30 150 MG NA Mj Lee Md [id number] [facility] PRESCRIPTION # FILLED WRITTEN DRUG LABEL QTY DAYS STRENGTH MME [facility] REFILL NO. REFILLS STATE 01/16/2024 11/19/2023 Pregabalin 60.0 30 150 MG NA Mj Lee Md [id number] [place] NA 2 [place] 1 [id number] 12/18/2023 11/19/2023 Pregabalin 60.0 30 150 MG NA Mj Lee Md [id number] [place] 1 [id number] 11/19/2023 11/19/2023 Pregabalin 60.0 30 150 MG NA Mj Lee Md [id number] [place] 2 [place] 1 [id number] 10/22/2023 08/24/2023 Pregabalin 60.0 30 150 MG NA Mj Lee Md [id number] [facility] PRESCRIPTION # FILLED WRITTEN DRUG LABEL QTY DAYS STRENGTH MME [facility] REFILL NO. REFILLS STATE 01/16/2024 11/19/2023 Pregabalin 60.0 30 150 MG NA Mj Lee Md [id number] [place] 2 [place] 1 [id number] 12/18/2023 11/19/2023 Pregabalin 60.0 30 150 MG NA Mj Lee Md [id number] [place] 2 [place] 1 [id number] 11/19/2023 11/19/2023 Pregabalin 60.0 30 150 MG NA Mj Lee Md [id number] [place] 1 [id number] 10/22/2023 08/24/2023 Pregabalin 60.0 30 150 MG NA Mj Lee Md [id number] [facility] PRESCRIPTION # FILLED WRITTEN DRUG LABEL QTY DAYS STRENGTH MME [facility] REFILL NO. REFILLS STATE 01/16/2024 11/19/2023 Pregabalin 60.0 30 150 MG NA Mj Lee Md [id number] [place] 2 [place] 1 [id number] 12/18/2023 11/19/2023 Pregabalin 60.0 30 150 MG NA Mj Lee Md [id number] [place] 2 [place] 1 [id number] 11/19/2023 11/19/2023 Pregabalin 60.0 30 150 MG NA Mj Lee Md [id number] [place] 2 [place] 1 [id number] 10/22/2023 08/24/2023 Pregabalin 60.0 30 150 MG NA Mj Lee Md [id number] [facility] PRESCRIPTION # FILLED WRITTEN DRUG LABEL QTY DAYS STRENGTH MME [facility] REFILL NO. REFILLS STATE 01/16/2024 11/19/2023 Pregabalin 60.0 30 150 MG NA Mj Lee Md [id number] [place] 2 [place] 1 [id number] 12/18/2023 11/19/2023 Pregabalin 60.0 30 150 MG NA Mj Lee Md [id number] [place] 2 [place] 1 [id number] 11/19/2023 11/19/2023 Pregabalin 60.0 30 150 MG NA Mj Lee Md [id number] [place] 2 [place] 1 [id number] 10/22/2023 08/24/2023 Pregabalin 60.0 30 150 MG NA Mj Lee Md [id number] [facility] Lives alone in apartment. POA none. Lives alone in apartment. POA none. Lives alone in apartment. POA none. Lives alone in apartment. POA none. Lives alone in apartment. POA none. Lives alone in apartment. POA none. Lives alone in apartment. POA none. Lives alone in apartment. POA none. Lives alone in apartment. POA none. Lives alone in apartment. POA none. Lives alone in apartment. POA none. Lives alone in apartment. POA none. Lives alone in apartment. POA none. Lives alone in apartment. POA none. Lives alone in apartment. POA none. Lives alone in apartment. POA none. Lives alone in apartment. POA none. Lives alone in apartment. POA none. Lives alone in apartment. POA none. Lives alone in apartment. POA none. Lives alone in apartment. POA none. PRESCRIPTION # FILLED WRITTEN DRUG LABEL QTY DAYS STRENGTH MEDD [facility] REFILL NO. REFILLS STATE 09/19/2022 09/19/2022 Pregabalin 60.0 30 150 MG NA Mj Lee Md [id number] [place] 5 [place] 1 [id number] 08/21/2022 04/06/2022 Pregabalin 60.0 30 150 MG NA Mj Lee Md [id number] [place] 5 [place] 1 [id number] 07/25/2022 04/06/2022 Pregabalin 60.0 30 150 MG NA Mj Lee Md [id number] G Lives alone in apartment. POA none. PRESCRIPTION # FILLED WRITTEN DRUG LABEL QTY DAYS STRENGTH MME [facility] REFILL NO. REFILLS STATE 11/20/2022 09/19/2022 Pregabalin 60.0 30 150 MG NA Mj Lee Md [id number] [place] 5 [place] 1 [id number] 10/23/2022 09/19/2022 Pregabalin 60.0 30 150 MG NA Mj Lee Md [id number] [place] 5 [place] 1 [id number] 10/11/2022 10/11/2022 Zolpidem Tartrate 30.0 30 10 MG NA Lainey Rivera [facility] [id number] Deann Lives alone in apartment. PO A none. Lives alone in apartment. PO A none. Lives alone in apartment. PO A none. Lives alone in apartment. PO A none. Lives alone in apartment. POA none. PRESCRIPTION # FILLED WRITTEN DRUG LABEL QTY DAYS STRENGTH MME [facility] REFILL NO. REFILLS STATE PATIENT [id number] 10/04/2023 10/04/2023 oxyCODONE HCL 28.0 7 5 MG 30 Radha [facility] [id number] [place] 0 [place] [id number] 09/24/2023 08/24/2023 Pregabalin 60.0 30 150 MG NA Mj Lee Md [id number] [facility] [place], [place] NA 2 [place] [id number] 08/27/2023 08/24/2023 Pregabalin 60.0 30 150 MG NA Mj Lee Md [id number] [facility] [place], [place] NA 2 [place] [id number] 07/30/2023 06/05/2023 Pregabalin 60.0 30 150 MG NA Mj Lee Md [id number] [place] NA 2 [place] [id number] 07/03/2023 06/05/2023 Pregabalin 60.0 30 150 MG NA Mj Lee Md [id number] G PRESCRIPTION # FILLED WRITTEN DRUG LABEL QTY DAYS STRENGTH MME [facility] REFILL NO. REFILLS STATE 01/16/2024 11/19/2023 Pregabalin 60.0 30 150 MG NA Mj Lee Md [id number] [place] 2 [place] 1 [id number] 12/18/2023 11/19/2023 Pregabalin 60.0 30 150 MG NA Mj Lee [id number] [facility] [place], [place] NA 2 [place] 1 [id number] 11/19/2023 11/19/2023 Pregabalin 60.0 30 150 MG NA Mj Lee [id number] [place] 2 [place] 1 [id number] 10/22/2023 08/24/2023 Pregabalin 60.0 30 150 MG NA Mj Lee [id number] [facility] PRESCRIPTION # FILLED WRITTEN DRUG LABEL QTY DAYS STRENGTH MME [facility] REFILL NO. REFILLS STATE 01/16/2024 11/19/2023 Pregabalin 60.0 30 150 MG NA Mj Lee [id number] [place] 2 [place] 1 [id number] 12/18/2023 11/19/2023 Pregabalin 60.0 30 150 MG NA Mj Lee [id number] [place] 2 [place] 1 [id number] 11/19/2023 11/19/2023 Pregabalin 60.0 30 150 MG NA Mj Lee [id number] [place] 2 [place] 1 [id number] 10/22/2023 08/24/2023 Pregabalin 60.0 30 150 MG NA Mj Lee [id number] [place] Lives alone in apartment. POA none. Lives alone in apartment. POA none. Lives alone in apartment. POA none. Lives alone in apartment. POA none. Lives alone in apartment. POA none. Lives alone in apartment. POA none. Lives alone in apartment. POA none. Lives alone in apartment. POA none. Lives alone in apartment. POA none. Lives alone in apartment. POA none. Lives alone in apartment. POA none. Lives alone in apartment. POA none. Lives alone in apartment. POA none. Lives alone in apartment. POA none. Lives alone in apartment. POA none. Lives alone in apartment. POA none. Lives alone in apartment. POA none. PRESCRIPTION # FILLED WRITTEN DRUG LABEL QTY DAYS STRENGTH MME [facility] REFILL NO. REFILLS STATE 11/20/2022 09/19/2022 Pregabalin 60.0 30 150 MG NA Mj Lee Md [id number] [place] NA 5 [place] 1 [id number] 10/23/2022 09/19/2022 Pregabalin 60.0 30 150 MG NA Mj Lee Md [id number] [place] 5 [place] 1 [id number] 10/11/2022 10/11/2022 Zolpidem Tartrate 30.0 30 10 MG NA Lainey Rivera [facility] - [id number] Deann PRESCRIPTION # FILLED WRITTEN DRUG LABEL QTY DAYS STRENGTH MME [facility] REFILL NO. REFILLS STATE 01/16/2024 11/19/2023 Pregabalin 60.0 30 150 MG NA Mj Lee Md [id number] [place] NA 2 [place] 1 [id number] 12/18/2023 11/19/2023 Pregabalin 60.0 30 150 MG NA Mj Lee Md [id number] [place] NA 2 [place] 1 [id number] 11/19/2023 11/19/2023 Pregabalin 60.0 30 150 MG NA Mj Lee Md [id number] [place] 2 [place] 1 [id number] 10/22/2023 08/24/2023 Pregabalin 60.0 30 150 MG NA Mj Lee Md [id number] [facility] Lives alone in apartment. POA none. Lives alone in apartment. POA none. Lives alone in apartment. POA none. 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 Active confirmed Problem 96058347 Chronic rhinitis (J31.0) Active confirmed Problem 09747021 Chronic cholecystitis (K81.1) Active confirmed Problem Depression (691080779) Depression (F32.9) 017 Active confirmed Problem Insomnia (840652664) Insomnia (G47.00) Active confirmed Problem Anxiety (41947802) Anxiety (F41.9) Active confi rmed Problem 73146418 Vitamin D deficiency (E55.9) Active confirmed Problem Chronic pain (10502290) Chronic pain (G89.29) Active confirmed Problem 313123808 Seizure disorder (G40.909) Active confirmed Problem 873622879 Colon cancer screening (Z12.11) Active confirmed Problem Lupus (304968541) Lupus (M32.9) Active confirme d Problem 65915612 Cervical spinal stenosis (M48.02) Active confirmed Problem 901612639 PVD (peripheral vascular disease) (I73.9) Active confirmed Problem 424209752 Pulmonary nodule (R91.1) Active confirmed Problem 53396998 Cervical radiculopathy (M54.12) 021 Active confirmed C3-4 on right, C4-5 on left Problem 52917096 Essential hypertension (I10) 019 Active confirmed Problem 504872418 Gastroesophageal reflux disease, esophagitis presence not specified (K21.9) Active confirmed Problem 16687681 Hyperlipidemia, unspecified hyperlipidemia type (E78.5) Active confirmed Problem 736214509 Migraine without aura and without status migrainosus, not intractable (G43.009) Active confirmed Problem 58444701 Irritable bowel syndrome, unspecified type (K58.9) Active confirmed Problem 33251720 Peripheral polyneuropathy (G62.9) Active confirmed Problem Incontinence of feces (38237005) Incontinence of feces, unspecified fecal incontinence type (R15.9) Active confirmed Problem 79744163 Restrictive lung disease (J98.4) Active confirmed Problem 884189266 Obesity, unspecified classification, unspecified obesity type, unspecified whether serious comorbidity present (E66.9) Active confirmed Problem 128896554 Venous insufficiency of both lower extremities (I87.2) Active confirmed Problem 063722801 Seasonal allergi c rhinitis, unspecified trigger (J30.2) Active confirmed Problem New daily persistent headache (303798746775697) New daily persistent headache (G44.52) Active confirmed Problem 56709763 Cerebrovascular disease (I67.9) 020 Active confirmed Problem 8170000803599057 Nontraumatic te ar of left rotator cuff, unspecified tear extent (M75.102) Active confirmed Vital Signs Heart Rate 96 /min 11/13/2024 Respiratory Rate 16 /min 11/13/2024 Oximetry 94 % 11/13/2024 Blood pressure diastolic 80 mm Hg 11/13/2024 Height 65 in 11/13/2024 Blood pressure systolic 110 mm Hg 11/13/2024 Weight 186.0 lbs 11/13/2024 BMI 30.95 kg/m2 11/13/2024 Encounters Encounter Location Date Provider Diagnosis [address] [address] 11/26/2023 Mj Lee Impaired glucose tolerance R73.02 ; Essential hypertension I10 and Chronic pain G89.[address] [address] 01/22/2024 Lainey Rivera Schizoaffective disorder, depressive type F25.1 and Insomnia G47.[address] [address] 02/11/2024 Mj Lee Hematochezia K92.1 ; Vertigo R42 and Nutritional counseling Z71.[address] [address] 03/19/2024 Lainey Rivera Schizoaffective disorder, depressive type F25.1 ; Insomnia G47.00 and Nutritional counseling Z71.[address] [place] [address] 05/14/2024 Mj Lee Schizoaffective disorder, depressive type F25.1 ; Impaired glucose tolerance R73.02 ; Encounter for immunization Z23 ; Gastroesophageal reflux disease, esophagitis presence not specified K21.9 ; Nutritional counseling Z71.3 ; Insomnia G47.00 and Chronic pain G89.[address] [place] [address] 08/04/2024 Mjprudencio Lee Dorsalgia of lumbar region M54.50 and Nutritional counseling Z71.[address] [facility] [place] [address] 09/08/2024 Mj Lee Dorsalgia of lumbosacral region M54.50 [facility] [address] [place] [address] 09/08/2024 Ary Hinojosa [address] [place] [address] 11/13/2024 Mj Lee Dorsalgia of multipl e sites in spine M54.9 ; Essential hypertension I10 ; Fatigue R53.83 ; Hyperlipidemia, unspecified hyperlipidemia type E78.5 ; Peripheral polyneuropathy G62.9 ; PVD (peripheral vascular disease) I73.9 ; Cancer screening Z12.9 and Exposure to potential infection Z20.[address] [place] [address] 12/21/2023 Mj Lee [address] [facility] [place] [address] 02/01/2024 Mj Lee [facility] [address] [place] [address] 02/25/2024 Mj Lee [facility] [address] [address] 03/19/2024 Mj Lee [address] [place] [address] 05/19/2024 Mj Lee Schizoaffective disorder, depressive type F25.[address] [address] 05/21/2024 Mj Lee [address] [address] 06/06/2024 Ary Hinojosa [address] [address] 08/21/2024 Mj Lee [address] [address] 08/21/2024 Mj Lee [address] [address] 08/26/2024 Mj Lee [address] [address] 08/27/2024 Mj Lee [address] [address] 09/01/2024 Mj Lee Schizoaffective disorder, depressive type F25.1 [facility] [address] [address] 09/10/2024 Mj [facility] [address] [address] 09/10/2024 Mj eLe [address] [address] 09/11/2024 Mj Lee [address] [address] 09/19/2024 Mj Lee [address] [address] 10/07/2024 Mj Lee Assessments Encounter Date Diagnosis (ICD Code) Assessment Notes Treatment Notes Treatment Clinical Notes Section Notes 08/04/2024 Dorsalgia of lumbar region (ICD-10 - M54.50) DISCUSSED HEAT, ACTIVITY STOLERATED, STRETCHES 09/08/2024 Dorsalgia of lumbosacral region (ICD-10 - M54.50) CONTINUE STRETCHES, MEDS. ADD HEAT PRN. KEEP PT APPT 09/09. 11/13/2024 Dorsalgia of multiple sites in spine (ICD-10 - M54.9) 11/13/2024 Essential hypertension (ICD-10 - I10) 09/01/2024 Schizoaffective disorder, depressive type (ICD-10 - F25.1) 05/19/2024 Schizoaffective disorder, depressive type (ICD-10 - F25.1) 05/14/2024 Impaired glucose tolerance (ICD-10 - R73.02) 11/26/2023 Essential hypertension (ICD-10 - I10) CONTROLLED 11/26/2023 Impaired glucose tolerance (ICD-10 - R73.02) CONTINUE DIET, EXERCISE 01/22/2024 Schizoaffective disorder, depressive type (ICD-10 - F25.1) Continue Seroquel. Will perform AIMS at next visit that is in person. Antipsychotics education - reviewed side effects which may include metabolic syndrome, movement disorders (EPS/extrapyramidal symptoms & TD/Tardive dyskinesia) - potentially permanent movement abnormalities, NMS/neuroleptic malignant syndrome (high fever, very rigid muscles, and rapid heartbeat - potentially fatal), sedation, and cardiac rhythm abnormalities. 02/11/2024 Vertigo (ICD-10 - R42) DISCUSSED AND SENT LINK TO GENIE EXERCISES 02/11/2024 Hematochezia (ICD-10 - K92.1) LABS NEXT WEEK AND SEE DR. LAWTON 03/06 SCHEDULED. CALL IF SX'S WORSEN 03/19/2024 Schizoaffective disorder, depressive type (ICD-10 - F25.1) Continue Seroquel. Antipsychotics education - reviewed side effects which may include metabolic syndrome, movement disorders (EPS/extrapyramidal symptoms & TD/Tardive dyskinesia) - potentially permanent movement abnormalities, NMS/neuroleptic malignant syndrome (high fever, very rigid muscles, and rapid heartbeat - potentially fatal), sedation, and cardiac rhythm abnormalities. 05/14/2024 Schizoaffective disorder, depressive type (ICD-10 - F25.1) 05/14/2024 Encounter for immunization (ICD-10 - Z23) Ordered per standing orders for administering influenza vaccine to adults. 03/19/2024 Insomnia (ICD-10 - G47.00) Continue Mirtazapine 30mg, pt educated that >30mg Mirtazapine loses its sedative abiltiy. We also discussed that the medication is more effective for sleep at lower doses. . Sleep hygiene - Discussed sleep hygiene measures that include: setting a goal to get at least 7-8 hours of sleep each night, maintaining a regular bedtime and wake up time even on weekends and days off; avoid naps during the day but if one is necessary, limit to no more than 30 minutes; avoid alcohol, caffeinated beverages and nicotine products for at least 6 hours prior to bedtime; avoid exercise and large meals within 4 hours of bedtime; limit or turn off electronics when in bed; and set aside some time to relax before bedtime. 01/22/2024 Insomnia (ICD-10 - G47.00) Continue Mirtazapine 30mg, pt educated that >30mg Mirtazapine loses its sedative abiltiy. We also discussed that the medication is more effective for sleep at lower doses. . Sleep hygiene - Discussed sleep hygiene measures that include: setting a goal to get at least 7-8 hours of sleep each night, maintaining a regular bedtime and wake up time even on weekends and days off; avoid naps during the day but if one is necessary, limit to no more than 30 minutes; avoid alcohol, caffeinated beverages and nicotine products for at least 6 hours prior to bedtime; avoid exercise and large meals within 4 hours of bedtime; limit or turn off electronics when in bed; and set aside some time to relax before bedtime. 11/26/2023 Chronic pain (ICD-10 - G89.29) 08/04/2024 Nutritional counseling (ICD-10 - Z71.3) 11/13/2024 Fatigue (ICD-10 - R53.83) 11/13/2024 Hyperlipidemia, unspecified hyperlipidemia type (ICD-10 - E78.5) 05/14/2024 Gastroesophageal reflux disease, esophagitis presence not specified (ICD-10 - K21.9) 03/19/2024 Nutritional counseling (ICD-10 - Z71.3) 02/11/2024 Nutritional counseling (ICD-10 - Z71.3) 05/14/2024 Nutritional counseling (ICD-10 - Z71.3) 11/13/2024 Peripheral polyneuropathy (ICD-10 - G62.9) 11/13/2024 PVD (peripheral vascular disease) (ICD-10 - I73.9) 05/14/2024 Insomnia (ICD-10 - G47.00) 05/14/2024 Chronic pain (ICD-10 - G89.29) 11/13/2024 Cancer screening (ICD-10 - Z12.9) MELINDA DECLINED CANCER SCREENING 11/13/2024 Exposure to potential infection (ICD-10 - Z20.9) 01/22/2024 Other Patient was edu cated on diagnosis and symptoms. Discussed the treatment plan, patient is agreeable and accepting of treatment plan. Patient denies further questions or concerns currently. Discussed sleep hygiene and caffeine intake. Encouraged to improve diet, get regular exercise, daily relaxation, and work on managing stress levels.Return to clinic 8 weeks.Labs are up to date. Encouraged counseling.The Patient/Guardian is aware of the need to contact the office or return for an earlier appointment if any problems or concerns arise. May also contact the 24-hour crisis hotline ([facility] refer to the closest emergency room or call 911 if new symptoms arise of existing symptoms worsen; the Patient/Guardian is aware that this would apply to symptoms such as: suicidal ideation, homicidal ideation, high risk behaviors, manic symptoms, psychotic symptoms, physical symptoms, or any other symptoms that may be dangerous to self or others.Greater than 50% of time spent on coordination and counseling where psychopharmacology as well as psychotherapeutic interventions were discussed along with review of treatments in the past.Patient/Roxy n was educated about treatments including benefits and risks, alternatives, potential medication side effects, black box warning, and risks of failure if not treated. The Patient/Guardian asked appropriate questions, appeared to understand the answers, and decided to accept the treatment and continue being followed.Discussed the importance of compliance with medications due to the risk of relapse of symptoms.Discussed the risks of taking psychotropic medication when combined with substance use/abuse and/or drinking alcohol. 03/19/2024 Other Patient was educated on diagnosis and symptoms. Discussed the treatment plan, patient is agreeable and accepting of treatment plan. Patient denies further questions or concerns currently. Discussed sleep hygiene and caffeine intake. Encouraged to improve diet, get regular exercise, daily relaxation, and work on managing stress levels.Return to clinic 12 weeks.Labs are up to date 01/2024.Encouraged counseling.The Patient/Guardian is aware of the need to contact the office or return for an earlier appointment if any problems or concerns arise. May also contact the 24-hour crisis hotline ([facility]), refer to the closest emergency room or call 911 if new symptoms arise of existing symptoms worsen; the Patient/Guardian is aware that this would apply to symptoms such as: suicidal ideation, homicidal ideation, high risk behaviors, manic symptoms, psychotic symptoms, physical symptoms, or any other symptoms that may be dangerous to self or others. Greater than 50% of time spent on coordination and counseling where psychopharmacology as well as psychotherapeutic interventions were discussed along with review of treatments in the past.Patient/Roxy n was educated about treatments including benefits and risks, alternatives, potential medication side effects, black box warning, and risks of failure if not treated. The Patient/Guardian asked appropriate questions, appeared to understand the answers, and decided to accept the treatment and continue being followed.Discussed the importance of compliance with medications due to the risk of relapse of symptoms.Discussed the risks of taking psychotropic medication when combined with substance use/abuse and/or drinking alcohol. 09/08/2024 Other [employer] met with Melinda Persaud to assist in working on building skills to help the consumer gain confidence in their independent living skills. The fiction and nonfiction prose writer practiced with Melinda Persaud implementing problem solving skills. The fiction and nonfiction prose writer encouraged and engaged in critical thinking of how to use natural resources and coping skills to help manage symptoms in the moment. [employer] also worked on modeling and practicing with the consumer healthy coping skills to reduce stress and anxiety like making notes, practicing breathing techniques, and participating in routine exercise. Plan Of Treatment Pending Test Test Name Order Date ECG RECORDING 04/12/2020 Future Test Test Name Order Date Xray : Spines, lumbar complete Xray : Thoracic spine 2 views 11/13/2024 HIV Screen *HIV 1, 2 Ab, p24 Ag ([id number]) 11/13/2024 Vitamin B12 and Folate 11/13/2024 Iron and TIBC* 11/13/2024 CBC With Differential/Platelet* 11/14/19 25 Hepatitis B Surface Antigen (HBsAg Scree n) 11/13/2024 C-Reactive Protein, Quant 11/13/2024 Hepatitis C Virus Antibody w/Rflx to Erick ntitative Real-time PCR ([id number]) 11/13/2024 Lipid Panel* 11/13/2024 CMP 14 Comprehensive Metabolic Panel* TSH Rfx on Abnormal to Free T4 5 UA/M w/rflx Culture, Routine 11/13/2024 Rapid Plasma Reagin (RPR) Te st With Reflex to Quantitative RPR and Confirmatory Treponema pallidum Antibodies 11/13/2024 Insurance Providers Payer Name Payer Address Payer Phone Subscriber Number Group Number Insured Name Patient Relationship to Insured Coverage Start Date Coverage End Date [facility] Claims Department [address] [place] [phone] [id number] Melinda Persaud Self - patient is the insured 5 [facility] Claims Department [address] [place] [phone] [id number] Melinda Persaud Self - patient is the insured 1 4 [facility] Att Claims Department [address] [place] [address] [phone] [id number] Melinda Persaud Self - patient is the insured 1 4 MEDICAID [address] [place] [address] [id number] Melinda Persaud Self - patient is the insured 4 4 Medical (General) History Medical History History ICD Code Lupus Schizoaffective disorder, depressive typ e Depression Anxiety Insomnia Essential hypertension PVD (peripheral vascular disease) Atherosclerotic heart diseas e of [place] coronary artery without angina pectoris New daily persistent headache HTN (hypertension) Chronic rhinitis Nontraumatic tear of left rotator cuff, unspecified tear extent Restrictive lung disease Tobacco use Pulmonary nodule Chronic cholecystitis Chronic pain Surgical History Surgery Date(Month/Year) Right femor- removed bone tumor 1998 Neck surgery 2016 appendectomy 2001 TOTAL HYSTERECTOMY Laparoscopic Cholecystectomy 2020 neck fusion and a total disc replacement 10/03/2023 nerve repair in r arm 02/26 Hospitalization History Reason Date(Month/Year) seizures 09/02/2020 psych 2007
--- OUTSIDE RECORDS SUMMARY | 2024-11-17 11:14 | XMS_ITS | Clinical Summary ---
Author Organization [facility] Address [address] [place] [address] Phone Care Team Providers Care [employer] Supervisor Name Role Phone JOSE HOLLINGSWORTH Unavailable [phone] SAMSON JANG MD Unavailable [phone] Reason for Visit and [...] Documented On 3:21PM By JOSE CADENA ; [facility] Varenicline Tartrate 1 MG Oral Tablet 06/20/2023 Pro vider: SAMSON JANG MD Diagnosis: Last Documented On 06/21/2023 9:05AM By Snehal CID ; [facility] Ketorolac Tromethamine 10 MG Oral Tablet 06/08/2023 Provider: SAMSON JANG MD Diagnosis: Last Documented On 06/21/2023 9:06AM By Snehal CID ; [facility] Latanoprost 0.005% Ophthalmic Solution 06/05/2023 Pr ovider: Diagnosis: Last Documented On 06/21/2023 9:05AM By Snehal CID ; [facility] QUEtiapine Fumarate 200 MG Oral Tablet 01/10/2023 Pr ovider: Diagnosis: AT BEDTIME Last Documented On 3 10:08AM By Snehal CID ; [facility] Melatonin 5 MG Oral Capsule 12/20/2022 Provider: Diagnosis: Last Documented On 3 11:26AM By Snehal CID ; [facility] Banophen 25 MG Oral Capsule 12/19/2022 Provider: SAMSON JANG MD Diagnosis: Last Documented On 3 11:22AM By Snehal CID ; [facility] Pregabalin 150 MG Oral Capsule 12/19/2022 Provider: SAMSON JANG MD Diagnosis: Last Documented On 3 11:23AM By Snehal CID ; [facility] QUEtiapine Fumarate 100 MG Oral Tablet 12/05/2022 Pr ovider: Diagnosis: Last Documented On 3 11:24AM By Snehal CID ; [facility] Ventolin HFA 108 (90 Base) M CG/ACT Inhalation Aerosol Solution 11/30/2022 Provider: SAMSON JANG MD Diagnosis: Last Documented On 3 11:25AM By Snehal CID ; [facility] hydroCHLOROthiazide 12.5 MG Oral Tablet 11/28/2022 P rovider: SAMSON JANG MD Diagnosis: Last Documented On 3 11:22AM By Snehal CID ; [facility] Dicyclomine HCl 20 MG Oral Tablet 11/27/2022 Provide r: SAMSON JANG MD Diagnosis: Last Documented On 3 11:23AM By Snehal CID ; [facility] Methocarbamol 750 MG Oral Tablet 11/24/2022 Provider : SAMSON JANG MD Diagnosis: Last Documented On 3 11:23AM By Snehal CID ; [facility] Atorvastatin Calcium 40 MG Oral Tablet 11/24/2022 Pr ovider: SAMSON JANG MD Diagnosis: Last Documented On 3 11:23AM By Snehal CID ; [facility] Candesartan Cilexetil 32 MG Oral Tablet 11/20/2022 Nataly gross: SAMSON JANG MD Diagnosis: Last Documented On 3 11:22AM By Snehal CID ; [facility] Medications Administered Includes: Administered Medications from this encounter No Administered Medications Recorded Results Includes: Results discussed during this encounter No Results Recorded For Specified Dates History of Present Illness Includes: History of Present Illness from this encounter No History of Present Illness Recorded Social History Description Last Updated Current smoker 12/20/2022 Last Documented On 3 12:42PM ; [facility] Difficulty walking 12/20/2022 Last Documented On 3 12:42PM ; [facility] Smoking packs of cigarettes per day 1 Last Documented On 3 12:42PM ; [facility] Smoking Status Unknown Medical History Includes: Medical [...] Documented On 4 2:44PM ; [facility] NSAIDs Allergy 12/20/2022 Active Last Documented On 4 2:44PM ; [facility] Meloxicam Allergy 12/20/2022 Active Last Documented On 4 2:44PM ; [facility] Effexor XR Allergy 12/20/2022 Active Last Documented On 4 2:44PM ; [facility] Contrast Dye Allergy 12/20/2022 Active Last Documented On 4 2:44PM ; [facility] Note: THROAT CLOSES AND STOPS BREATHING Aspirin Allergy 12/20/2022 Active Last Documented On 4 2:44PM ; [facility] Encounters Encounter Provider Location Date Check-In Time Check-Out Time Diagnosis POST PROCEDURE PHONE CALL JOSE CADENA 03/23/2023 12:42PM 11:59PM Insurance Includes: Active Insurance Policies Plan Name Member ID Group # Subscriber Relationship Effect [place] Dates 1 - [facility] [id number] UZMA SOSA Se lf Clinical Notes Includes: Clinical Notes from this encounter * Progress note Date Encounter Last Documented by 03/23/2023 POST PROCEDURE PHONE CALL Last d ocumented on 03/23/2023; 12:44 PM, Mari Retana RN; [facility] Top of Document Post-Procedural Patient [...]
--- OUTSIDE RECORDS SUMMARY | 2024-11-17 11:14 | XMS_ITS ---
Author Organization [facility] Address [address] [place] [address] Phone Care Team Providers Care Farm Manager Name Role Phone TAQUERIA ANP-BC, JOSE L Unavailable [phone] SAMSON JANG MD Unavailable [phone] Plan of Treatment No Plan of Treatment Recorded Assessments Includes: Assessments for all patient encounters Findings Encounter Date Cervical radiculopathy PAIN MANAGEMENT F OLLOW UP with JOSE L TAQUERIA ANP-BC 08/02/2023 Last Documented On 4 1:09PM ; [facility] Cervical spine stenosis PAIN MANAGEMENT FOLLOW UP with JOSE L TAQUERIA ANP-BC 08/02/2023 Last Documented On 4 1:09PM ; [facility] Cervical spondylosis with radiculopathy PAIN MANAGEMENT FOLLOW UP with JOSE L TAQUERIA ANP-BC 08/02/2023 Last Documented On 4 1:09PM ; [facility] Myalgia and myositis PAIN MANAGEMENT FOL LOW UP with JOSE L TAQUERIA ANP-BC 08/02/2023 Last Documented On 4 1:09PM ; [facility] Cervical radiculopathy TELEHEALTH with JOSE L TAQUERIA ANP-BC 06/21/2023 Last Documented On 3 9:16AM ; [facility] Cervical spine stenosis TELEHEALTH with JOSE L TAQUERIA ANP-BC 06/21/2023 Last Documented On 3 9:16AM ; [facility] Cervical spondylosis with radiculopathy TELEHEALTH with JOSE L TAQUERIA ANP-BC 06/21/2023 Last Documented On 3 9:16AM ; [facility] Myalgia and myositis TELEHEALTH with JOSE L BL EVINS ANP-BC 06/21/2023 Last Documented On 3 9:16AM ; [facility] Cervical radiculopathy PAIN MANAGEMENT F OLLOW UP with JOSE L TAQUERIA ANP-BC 04/11/2023 Last Documented On 3 2:21PM ; [facility] Cervical spine stenosis PAIN MANAGEMENT FOLLOW UP with JOSE L TAQUERIA ANP-BC 04/11/2023 Last Documented On 3 2:21PM ; [facility] Cervical spondylosis with radiculopathy PAIN MANAGEMENT FOLLOW UP with JOSE L TAQUERIA ANP-BC 04/11/2023 Last Documented On 3 2:21PM ; [facility] Myalgia and myositis PAIN MANAGEMENT FOL LOW UP with JOSE L TAQUERIA ANP-BC 04/11/2023 Last Documented On 3 2:21PM ; [facility] Cervical radiculopathy TELEHEALTH with JOSE L TAQUERIA ANP-BC 01/31/2023 Last Documented On 3 11:50AM ; [facility] Cervical spine stenosis TELEHEALTH with JOSE L TAQUERIA ANP-BC 01/31/2023 Last Documented On 3 11:50AM ; [facility] Myalgia and myositis TELEHEALTH with JOSE L BL EVINS ANP-BC 01/31/2023 Last Documented On 3 11:50AM ; [facility] Cervical radiculopathy PAIN MANAGEMENT N EW CONSULT with JOSE L TAQUERIA ANP-BC 12/20/2022 Last Documented On 3 2:42PM ; [facility] Cervical spine stenosis PAIN MANAGEMENT NEW CONSULT with JOSE L TAQUERIA ANP-BC 12/20/2022 Last Documented On 3 2:42PM ; [facility] Myalgia and myositis PAIN MANAGEMENT NEW CONSULT with JOSE L TAQUERIA ANP-BC 12/20/2022 Last Documented On 3 2:42PM ; [facility] Medical Equipment - Implanted Devices Includes: [...] On 4 3:21PM By JOSE CADENA ; [facility] Varenicline Tartrate 1 MG Oral Tablet 06/20/2023 Pro vider: SAMSON JANG MD Diagnosis: Last Documented On 06/21/2023 9:05AM By Snehal CID ; [facility] Ketorolac Tromethamine 10 MG Oral Tablet 06/08/2023 Provider: SAMSON JANG MD Diagnosis: Last Documented On 06/21/2023 9:06AM By Snehal CID ; [facility] Latanoprost 0.005% Ophthalmic Solution 06/05/2023 Pr ovider: Diagnosis: Last Documented On 06/21/2023 9:05AM By Snehal CID ; [facility] QUEtiapine Fumarate 200 MG Oral Tablet 01/10/2023 Pr ovider: Diagnosis: AT BEDTIME Last Documented On 3 10:08AM By Snehal CID ; [facility] Melatonin 5 MG Oral Capsule 12/20/2022 Provider: Diagnosis: Last Documented On 3 11:26AM By Snehal CID ; [facility] Banophen 25 MG Oral Capsule 12/19/2022 Provider: SAMSON JANG MD Diagnosis: Last Documented On 3 11:22AM By Snehal CID ; [facility] Pregabalin 150 MG Oral Capsule 12/19/2022 Provider: SAMSON JANG MD Diagnosis: Last Documented On 3 11:23AM By Snehal CID ; [facility] QUEtiapine Fumarate 100 MG Oral Tablet 12/05/2022 Pr ovider: Diagnosis: Last Documented On 3 11:24AM By Snehal CID ; [facility] Ventolin HFA 108 (90 Base) M CG/ACT Inhalation Aerosol Solution 11/30/2022 Provider: SAMSON JANG MD Diagnosis: Last Documented On 3 11:25AM By Snehal CID ; [facility] hydroCHLOROthiazide 12.5 MG Oral Tablet 11/28/2022 P rovider: SAMSON JANG MD Diagnosis: Last Documented On 3 11:22AM By Snehal CID ; [facility] Dicyclomine HCl 20 MG Oral Tablet 11/27/2022 Provide r: SAMSON JANG MD Diagnosis: Last Documented On 3 11:23AM By Snehal CID ; [facility] Methocarbamol 750 MG Oral Tablet 11/24/2022 Provider : SAMSON JANG MD Diagnosis: Last Documented On 3 11:23AM By Snehal CID ; [facility] Atorvastatin Calcium 40 MG Oral Tablet 11/24/2022 Pr ovider: SAMSON JANG MD Diagnosis: Last Documented On 3 11:23AM By Snehal CID ; [facility] Candesartan Cilexetil 32 MG Oral Tablet 11/20/2022 P rovider: SAMSON JANG MD Diagnosis: Last Documented On 3 11:22AM By Snehal CID ; [facility] Past Medications on file Lidocaine 5% External Patch 06/21/2023 - 09/20/2023 Provider: JOSE CADENA Diagnosis: Spinal stenosis, cervical region as directed apply patch to a ffected area for 12 hours and remove for 12 hours Last Documented On 4 3:14PM By JOSE CADENA ; [facility] Diclofenac Sodium 75 MG Oral Tablet Delayed Release 05/08/2023 - 06/21/2023 Provider: JOSE CADENA Diagnosis: Spinal stenosis, cervical region One tablet dailystop ketoralac Last Documented On 3 9:11AM By JOSE CADENA ; [facility] diphenhydrAMINE HCl 50 MG Oral Capsule 04/11/2023 - 06/21/2023 Provider: JOSE CADENA Diagnosis: Spinal stenosis, cervical region take 1 tablet by mouth 1 fredrick r prior to procedure Last Documented On 06/21/2023 9:04AM By Snehal CID ; [facility] Diclofenac Sodium 75 MG Oral Tablet Delayed Release 04/11/2023 - 05/08/2023 Provider: JOSE CADENA Diagnosis: Spinal stenosis, cervical region One tablet dailystop ketoralac Last Documented On 3:47PM By JOSE CADENA ; [facility] predniSONE 50 MG Oral Tablet 04/11/2023 - 06/21/2023 Provider: JOSE CADENA Diagnosis: Spinal stenosis, cervical region 1 po 13 hours prior to proce dure, 1 po 7 hours prior and 1 po 1 hour prior to procedure Last Documented On 06/21/2023 9:04AM By Snehal CID ; [facility] ALPRAZolam 0.5 MG Oral Tablet 04/11/2023 - 06/21/2023 Provider: JOSE CADENA Diagnosis: Other spondylosi s with radiculopathy, cervical region as directed 1 po 1 hour prio r to procedure, 1 po 30 minutes prior to procedure Last Documented On 06/21/2023 9:03AM By Snehal CID ; [facility] Ketorolac Tromethamine 10 MG Oral Tablet 04/06/2023 - 06/21/2023 Provider: SAMSON Sosa Diagnosis: Last Documented On 06/21/2023 9:04AM By Snehal CID ; [facility] Lidocaine 5% External Patch 03/19/2023 - 06/21/2023 Provider: JOSE CADENA Diagnosis: Spinal stenosis, cervical region as directed apply patch to a ffected area for 12 hours and remove for 12 hours Last Documented On 9:16AM By JOSE CADENA ; [facility] ALPRAZolam 0.5 MG Oral Tablet 02/27/2023 - 04/11/2023 Provider: JOSE CADENA Diagnosis: as directed 1 po 1 hour prio r to procedure, 1 po 30 minutes prior to procedure Last Documented On 3 1:28PM By Lenora CID ; [facility] diphenhydrAMINE HCl 50 MG Oral Capsule 02/12/2023 - 04/11/2023 Provider: JOSE CADENA Diagnosis: Spinal stenosis, cervical region take 1 tablet by mouth 1 fredrick r prior to procedure Last Documented On 3 2:14PM By JOSE CADENA ; [facility] predniSONE 50 MG Oral Tablet 02/12/2023 - 04/11/2023 Provider: JOSE CADENA Diagnosis: Spinal stenosis, cervical region take 1 tablet by mouth 13 ho urs prior to procedure, 7 hours prior to procedure and 1 hour prior to procedure Last Documented On 3 1:28PM By Lenora CID ; [facility] Lidocaine 5% External Patch 12/21/2022 - 03/19/2023 Provider: JOSE CADENA Diagnosis: Spinal stenosis, cervical region as directed apply patch to a ffected area for 12 hours and remove for 12 hours Last Documented On 3 4:25PM By JOSE CADENA ; [facility] Topiramate 50 MG Oral Tablet 12/12/2022 - 04/11/2023 P rovider: SAMSON JANG MD Diagnosis: Last Documented On 3 1:28PM By Lenora CID ; [facility] Montelukast Sodium 10 MG Ora l Tablet 12/04/2022 - 06/21/2023 Provider: SAMSON Sosa Diagnosis: Last Documented On 06/21/2023 9:04AM By Snehal CID ; [facility] Doxepin HCl 25 MG Oral Capsule 11/28/2022 - 06/21/2023 Provider: Diagnosis: Last Documented On 06/21/2023 9:04AM By Snehal CID ; [facility] Ketorolac Tromethamine 10 MG Oral Tablet 11/24/2022 - 06/21/2023 Provider: SAMSON Sosa Diagnosis: Last Documented On 06/21/2023 9:04AM By Snehal CID ; [facility] Medications Administered Includes: Administered Medications in patient's chart No Administered Medications Recorded Results Includes: Results from 11/18/2023 through 11/17/2024 No Results Recorded For Specified Dates History of Present Illness History of Present Illness not supported for this document type No History of Present Illness Recorded Social History Description Last Updated Former smoker 08/02/2023 Last Documented On 4 1:09PM ; [facility] No consumption of alcohol 08/02/2023 Last Documented On 4 1:09PM ; [facility] Not using drugs 08/02/2023 Last Documented On 4 1:09PM ; [facility] Current smoker 12/20/2022 Last Documented On 3 2:42PM ; [facility] Difficulty walking 12/20/2022 Last Documented On 3 2:42PM ; [facility] Smoking packs of cigarettes per day 1 Last Documented On 3 2:42PM ; [facility] Smoking Status Unknown Procedures and Surgical History Surgical History Last Updated No Pacemaker 08/02/2023 Last Documented On 4 1:09PM ; [facility] Medical History Includes: Medical History in patient's chart Description Last Updated Denies a fear of falling. 08/02/2023 Last Documented On 4 1:09PM ; [facility] Has had no fall in the last 12 months. 0 08/02/2023 Last Documented On 4 1:09PM ; [facility] No Pain Pump 08/02/2023 Last Documented On 4 1:09PM ; [facility] No Spinal cord stimulator 08/02/2023 Last Documented On 4 1:09PM ; [facility] CT/MRI September 2022neckGRMCshoulderFeb 202 3[facility]MC 04/11/2023 Last Documented On 3 2:21PM ; [facility] Currently wearing eyeglasses 04/11/2023 Last Documented On 3 2:21PM ; [facility] Injection/Nerve blocks 04/11/2023 Last Documented On 3 2:21PM ; [facility] Message/Acupressure 04/11/2023 Last Documented On 3 2:21PM ; [facility] Pain Clinic 04/11/2023 Last Documented On 3 2:21PM ; [facility] Physical therapy 04/11/2023 Last Documented On 3 2:21PM ; [facility] Please list all illnesses/co nditions you have been diagnosed with: HPTN; peripheral vascular disease; high cholesterol; restricted breathing disorder; lung stone; seizures; allergies; depression 04/11/2023 Last Documented On 3 2:21PM ; [facility] Please list all surgeries: 2 November neck surgerygallbladder removal 2020hysterectomy 2000appendectomy 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 on R femur removed 199804/11/2023 Last Documented On 3 2:21PM ; [facility] Severe Pain 04/11/2023 Last Documented On 3 2:21PM ; [facility] Treatment with TENS unit 04/11/2023 Last Documented On 3 2:21PM ; [facility] X-rays September 2022neck and back[facility] 04/11 Last Documented On 3 2:21PM ; [facility] Family History Includes: Family History in patient's chart Description Last Updated Maternal history of family history of is chemic heart disease 08/02/2023 Last Documented On 4 1:09PM ; [facility] Maternal history of family history of ki dney disease 08/02/2023 Last Documented On 4 1:09PM ; [facility] Review of Systems Review of Systems not [...] Active Last Documented On 4 2:44PM ; [facility] NSAIDs Allergy 12/20/2022 Active Last Documented On 4 2:44PM ; [facility] Meloxicam Allergy 12/20/2022 Active Last Documented On 4 2:44PM ; [facility] Effexor XR Allergy 12/20/2022 Active Last Documented On 4 2:44PM ; [facility] Contrast Dye Allergy 12/20/2022 Active Last Documented On 4 2:44PM ; [facility] Note: THROAT CLOSES AND STOPS BREATHING Aspirin Allergy 12/20/2022 Active Last Documented On 4 2:44PM ; [facility] Insurance Includes: Active Insurance Policies Plan Name Member ID Group # Subscriber Relationship Effect aust[place] Dates 1 - [facility] [id number] UZMA SOSA Se lf Clinical Notes Includes: Signed Clinical Notes starting from 08/11/2022 No Clinical Notes Recorded
[2024-11-17 11:34] LABS: HIV 1/2 Ab P24 Ag Result Negative (Negative)
[2024-11-17 11:35] LABS: Syphilis IgG/IgM Antibody Negative (Negative); Thyroid Stimulating Hormone Reflex 0.733 uIU/mL (0.465-4.68)
[2024-11-17 11:37] LABS: Hepatitis B Surface Antigen Negative (Negative)
[2024-11-17 11:55] LABS: Hepatitis C Virus Antibody Negative (Negative)
[2024-11-17 12:08] LABS: Folic Acid 13.6 ng/mL (2.76->20)
[2024-11-17 18:18] LABS: Iron 61 ug/dL (37-170); Percent Iron Saturation 15 % (20-50)
== END 2024-11-17 09:56 | disposition home or self-care (01) ==
LOC: ANHLAB 09:59
PROVIDERS: PCP Internal Medicine; Visit Provider Internal Medicine
DX: E78.5 Hyperlipidemia, unspecified (principal); G62.9 Polyneuropathy, unspecified; I10 Essential (primary) hypertension; M54.9 Dorsalgia, unspecified; R53.83 Other fatigue; Z20.9 Contact with and (suspected) exposure to unspecified communicable disease; M51.369 Other intervertebral disc degeneration, lumbar region without mention of lumbar back pain or lower extremity pain; M51.34 Other intervertebral disc degeneration, thoracic region
CPT/HCPCS: 36415; 72070; 72100; 80053; 80061; 81001; 82607; 82746; 83540; 83550; 84443; 85025; 86140; 86593; 86703; 86803; 87340; G0432